=== PATIENT | female | born 1945 | race Caucasian/White ===

== ENCOUNTER → 2017-07-23 | Outpatient (CLI) | payer MEDICARE ==
[2017-07-23 11:03] LABS: ALT 65 U/L (9-52); AST 38 U/L (14-36); Alkaline Phosphatase 70 U/L (38-126); Anion Gap 12 mmol/L; Blood Urea Nitrogen 18 mg/dL (7-17); Calcium 9.8 mg/dL (8.4-10.2); Carbon Dioxide 23 mmol/L (22-30); Chloride 103 mmol/L (98-107); Cholesterol 156 mg/dL (<200); Glucose 226 mg/dL (74-99); HDL Cholesterol 35 mg/dL (40-60); Non-African American GFR(MDRD) >60 (>60 ml/min/1.73 sqM); Potassium 4.4 mmol/L (3.5-5.1); Sodium 138 mmol/L (137-145); Total Bilirubin 0.7 mg/dL (0.2-1.3); Total Protein 7.6 g/dL (6.3-8.2)
[2017-07-23 11:52] LABS: Vitamin B12 230 pg/mL
[2017-07-23 13:32] LABS: Hemoglobin A1C 8.2 % (4.2-6.1)
[2017-07-23 16:36] LABS: Urine Creatinine 161.7 mg/dL
== END | disposition home or self-care (01) ==
LOC: LABWHC1 09:43
PROVIDERS: ATTEND Internal Medicine Endocrinology, Diabetes & Metabolism
DX: E11.65 Type 2 diabetes mellitus with hyperglycemia (principal); E03.8 Other specified hypothyroidism
CPT/HCPCS: 36415; 80053; 80061; 82043; 82570; 82607; 82746; 83036; 84443

== ENCOUNTER → 2017-10-28 | Outpatient (CLI) | payer MEDICARE ==
[2017-10-28 16:10] LABS: Hemoglobin A1C 7.3 % (4.0-6.0)
== END | disposition home or self-care (01) ==
LOC: LABWHC1 10:11
PROVIDERS: ATTEND Internal Medicine
DX: E11.9 Type 2 diabetes mellitus without complications (principal)
CPT/HCPCS: 36415; 83036

== ENCOUNTER → 2018-06-19 | Outpatient (CLI) | payer MEDICARE ==
--- NOTE | 2018-06-19 14:15 | US ---
EXAMINATION TYPE: US gallbladder DATE OF EXAM: 06/19/2018 COMPARISON: NONE CLINICAL HISTORY: R81.9 Cholecystitis. EXAM MEASUREMENTS: Liver Length: 14.5 cm Gallbladder Wall: 0.2 cm CBD: 0.2 cm Right Kidney: 9.4 x 4.0 x 4.2 cm Pancreas: partially obscured by bowel gas Liver: Increased attenuation, decreased visualization of vessels suggestive of fatty infiltrate Gallbladder: cholelithiasis, neck obscured by shadowing from stones, no wall thickening Evidence for sonographic Trammell's sign: no CBD: wnl Right Kidney: Inferior pole obscured by overlying bowel gas IMPRESSION: 1. Cholelithiasis. Acute cholecystitis is not evident based on ultrasound.
== END | disposition home or self-care (01) ==
LOC: RADUSWWP 09:34
PROVIDERS: ATTEND Family Medicine
DX: K80.20 Calculus of gallbladder without cholecystitis without obstruction (principal)
CPT/HCPCS: 76705

== ENCOUNTER → 2018-09-11 | Outpatient (CLI) | payer MEDICARE ==
[2018-09-11 17:33] LABS: LDL Cholesterol,Calculated 136.2 mg/dL (0.0-131.0); VLDL Calculation 14.8 mg/dL (5.00-40.00)
[2018-09-11 18:37] LABS: Hemoglobin A1C 6.6 % (4.0-6.0)
== END | disposition home or self-care (01) ==
LOC: LABWHC1 07:42
PROVIDERS: ATTEND Internal Medicine
DX: E55.9 Vitamin D deficiency, unspecified (principal); E11.9 Type 2 diabetes mellitus without complications
CPT/HCPCS: 36415; 80061; 82043; 82306; 82570; 83036

== ENCOUNTER → 2018-09-24 | Outpatient (CLI) | payer MEDICARE ==
--- NOTE | 2018-09-25 09:19 | MM ---
Reason for exam: screening (asymptomatic). Last mammogram was performed 1 year ago. History: Patient is postmenopausal. Physical Findings: A clinical breast exam by your physician is recommended on an annual basis and results should be correlated with mammographic findings. MG 3D Screening Mammo W/Cad Bilateral CC and MLO view(s) were taken. Prior study comparison: September 23, 2017, bilateral MG 3d screening mammo w/cad. September 20, 2016, bilateral MG 3d screening mammo w/cad. There are scattered fibroglandular densities. There are benign appearing round dystrophic calcifications bilaterally. There is no discrete abnormality. ASSESSMENT: Benign, BI-RAD 2 RECOMMENDATION: Routine screening mammogram of both breasts in 1 year.
== END | disposition home or self-care (01) ==
LOC: RADMAMWWP 06:56
PROVIDERS: ATTEND Family Medicine
DX: Z12.31 Encounter for screening mammogram for malignant neoplasm of breast (principal)
CPT/HCPCS: 77063; 77067

== ENCOUNTER → 2019-03-12 | Outpatient (CLI) | payer MEDICARE ==
[2019-03-12 16:32] LABS: Albumin 4.5 g/dL (3.80-4.90); Albumin/Globulin Ratio 1.5 (1.60-3.17); Anion Gap 9.7 mmol/L (4.00-12.00); Calcium 10.1 mg/dL (8.7-10.3); Carbon Dioxide 25.3 mmol/L (21.6-31.8); LDL Cholesterol,Calculated 137.8 mg/dL (0.0-131.0); Potassium 4.2 mmol/L (3.5-5.5); Total Bilirubin 0.6 mg/dL (0.2-1.2); Total Protein 7.5 g/dL (6.2-8.2); VLDL Calculation 23.2 mg/dL (5.00-40.00)
[2019-03-12 19:00] LABS: Hemoglobin A1C 6.5 % (4.0-6.0)
== END ==
LOC: LABWHC1 08:44
PROVIDERS: ATTEND Internal Medicine Endocrinology, Diabetes & Metabolism
DX: E11.65 Type 2 diabetes mellitus with hyperglycemia (principal); E03.8 Other specified hypothyroidism
CPT/HCPCS: 36415; 80053; 80061; 82043; 82570; 83036; 84443

== ENCOUNTER → 2019-09-25 | Outpatient (CLI) | payer MEDICARE ==
--- NOTE | 2019-09-28 09:31 | MM ---
Reason for exam: screening (asymptomatic). Last mammogram was performed 1 year ago. History: Patient is postmenopausal. Physical Findings: A clinical breast exam by your physician is recommended on an annual basis and results should be correlated with mammographic findings. MG 3D Screening Mammo W/Cad Bilateral CC and MLO view(s) were taken. Prior study comparison: September 24, 2018, bilateral MG 3d screening mammo w/cad. September 23, 2017, bilateral MG 3d screening mammo w/cad. There are scattered fibroglandular densities. Benign appearing bilateral calcifications. No suspicious abnormality. No significant changes when compared with prior studies. ASSESSMENT: Benign, BI-RAD 2 RECOMMENDATION: Routine screening mammogram of both breasts in 1 year.
== END | disposition home or self-care (01) ==
LOC: RADMAMWWP 10:48
PROVIDERS: ATTEND Family Medicine
DX: Z12.31 Encounter for screening mammogram for malignant neoplasm of breast (principal)
CPT/HCPCS: 77063; 77067

== ENCOUNTER → 2019-10-16 | Outpatient (CLI) | payer MEDICARE ==
[2019-10-16 17:12] LABS: African American GFR (CKD) 58.1 (60.0-200.0); Albumin 4.4 g/dL (3.80-4.90); Albumin/Globulin Ratio 1.63 (1.60-3.17); BUN/Creat Ratio 18.18 Ratio (12.00-20.00); Chol/HDL Ratio 6.18; Globulin 2.7 g/dL (1.6-3.3); LDL Cholesterol,Calculated 140.4 mg/dL (0.0-131.0); Non-African American GFR(CKD) 50.1 (60.0-200.0); Potassium 4.3 mmol/L (3.5-5.5); Total Bilirubin 0.7 mg/dL (0.2-1.2); Total Protein 7.1 g/dL (6.2-8.2); VLDL Calculation 35.6 mg/dL (5.00-40.00)
[2019-10-16 21:21] LABS: Hemoglobin A1C 6.2 % (4.0-6.0)
== END | disposition home or self-care (01) ==
LOC: LABWHC1 09:20
PROVIDERS: ATTEND Internal Medicine Endocrinology, Diabetes & Metabolism
DX: E11.9 Type 2 diabetes mellitus without complications (principal)
CPT/HCPCS: 36415; 80053; 80061; 82043; 82570; 83036; 84443

== ENCOUNTER → 2020-05-31 | Outpatient (CLI) | payer MEDICARE ==
[2020-05-31 17:20] LABS: Hemoglobin A1C 8.1 % (4.0-6.0)
[2020-05-31 18:55] LABS: African American GFR (CKD) 57.7 (60.0-200.0); Albumin 4.4 g/dL (3.80-4.90); Albumin/Globulin Ratio 1.52 (1.60-3.17); Anion Gap 11.4 mmol/L (4.00-12.00); BUN/Creat Ratio 27.27 Ratio (12.00-20.00); Calcium 9.7 mg/dL (8.7-10.3); Carbon Dioxide 21.6 mmol/L (21.6-31.8); Chol/HDL Ratio 4.67; Globulin 2.9 g/dL (1.6-3.3); Non-African American GFR(CKD) 49.8 (60.0-200.0); Potassium 4.4 mmol/L (3.5-5.5); Total Bilirubin 0.4 mg/dL (0.3-1.2); Total Protein 7.3 g/dL (6.2-8.2)
[2020-06-01 01:51] LABS: Urine Creatinine 80.6 mg/dL
== END | disposition home or self-care (01) ==
LOC: LABWHC1 08:54
PROVIDERS: ATTEND Internal Medicine Endocrinology, Diabetes & Metabolism
DX: E11.9 Type 2 diabetes mellitus without complications (principal)
CPT/HCPCS: 36415; 80053; 80061; 82043; 82570; 83036; 84443

== ENCOUNTER 2020-10-24 08:02 | Inpatient (IN) | payer MEDICARE ==
--- NOTE | 2020-10-24 08:28 | ED ---
General Adult HPI - General Chief complaint: Chest Pain Stated complaint: Chest Pain, Lightheaded Time Seen by Provider: 10/24/20 08:09 Source: patient, RN notes reviewed, old records reviewed Mode of arrival: wheelchair Limitations: no limitations - History of Present Illness Initial comments: 75-year-old female presenting for evaluation of chest tightness. Patient states that at 3 AM this morning which was 5 hours prior to arrival the patient devel oped left arm pain and numbness and central upper chest tightness. She denies associated nausea vomiting or diaphoresis. She states she did have a vomiting illness approximate 2 days ago which has resolved. There is no associated chest pain with this episode of vomiting. She denies a known history of coronary artery disease but states that she had a stress test in the fall and it was recommended that she undergo heart catheterization but she had not completed this is secondary to coronavirus. He denies fever. Denies dyspnea. Patient had taken aspirin prior to arrival. - Related Data Allergies Allergy/AdvReac Type Severity Reaction Status Date / Time epinephrine Allergy Rapid Verified 10/24/20 08:14 Heart Rate Review of Systems ROS Statement: Those systems with pertinent positive or pertinent negative responses have been documented in the HPI. ROS Other: All systems not noted in ROS Statement are negative. Past Medical History Past Medical History: Diabetes Mellitus, Hyperlipidemia, Hypertension, Thyroid Disorder History of Any Multi-Drug Resistant Organisms: None Reported Past Surgical History: Section, Orthopedic Surgery Additional Past Surgical History / Comment(s): knee Past Psychological History: No Psychological Hx Reported Smoking Status: Never smoker Past Alcohol Use History: None Reported Past Drug Use History: None Reported General Exam Limitations: no limitations General appearance: alert, in no apparent distress Head exam: Present: atraumatic, normocephalic Eye exam: Present: normal appearance, PERRL ENT exam: Present: normal exam Neck exam: Present: normal inspection. Absent: tenderness, meningismus Respiratory exam: Present: normal lung sounds bilaterally. Absent: respiratory distress, wheezes Cardiovascular Exam: Present: regular rate, normal rhythm GI/Abdominal exam: Present: soft. Absent: distended, tenderness, guarding Extremities exam: Present: normal inspection, normal capillary refill. Absent: pedal edema, calf tenderness Neurological exam: Present: alert, oriented X3, CN II-XII intact. Absent: motor sensory deficit Psychiatric exam: Present: normal affect, normal mood Skin exam: Present: warm, dry, intact. Absent: cyanosis, diaphoretic Course Vital Signs 10/24/20 10/24/20 08:11 08:30 Temperature 98 F Pulse Rate 68 68 Respiratory 18 18 Rate Blood Pressure 149/73 158/77 O2 Sat by Pulse 100 98 Oximetry EKG Findings - EKG Comments: EKG Findings:: EKG: Sinus rhythm, low voltage, inferior infarct rate of 65, AZ interval 170, QRS duration 88, QTC 418, no ST segment elevation. Medical Decision Making - Medical Decision Making 75-year-old female residing for evaluation of chest pain, radiating to left arm. EKG negative for ST segment elevation. Chest x-rays negative for acute cardiopulmonary disease. Patient has normal CBC, she has mildly elevated blood glucose, otherwise normal kidney function, normal electrolytes. She has a negative initial troponin. Given this history of a positive stress test and need for heart catheterization will keep this patient observation for serial cardiac enzymes, telemetry, cardiology consultation. Case has been discussed with Dr. Gomez who will admit. - Lab Data Result diagrams: 10/24/20 08:29 10/24/20 08:29 Lab Results 10/24/20 10/24/20 10/24/20 Range/Units 08:29 08:29 08:29 WBC 6.5 (3.8-10.6) k/uL RBC 4.19 (3.80-5.40) m/uL Hgb 12.8 (11.4-16.0) gm/dL Hct 36.9 (34.0-46.0) % MCV 88.0 (80.0-100.0) fL MCH 30.6 (25.0-35.0) pg MCHC 34.7 (31.0-37.0) g/dL RDW 13.6 (11.5-15.5) % Plt Count 212 (150-450) k/uL MPV 8.5 Neutrophils % 63 % Lymphocytes % 30 % Monocytes % 3 % Eosinophils % 3 % Basophils % 1 % Neutrophils # 4.1 (1.3-7.7) k/uL Lymphocytes # 1.9 (1.0-4.8) k/uL Monocytes # 0.2 (0-1.0) k/uL Eosinophils # 0.2 (0-0.7) k/uL Basophils # 0.0 (0-0.2) k/uL Sodium 135 L (137-145) mmol/L Potassium 5.5 H (3.5-5.1) mmol/L Chloride 104 (98-107) mmol/L Carbon Dioxide 23 (22-30) mmol/L Anion Gap 8 mmol/L BUN 20 H (7-17) mg/dL Creatinine 0.98 (0.52-1.04) mg/dL Est GFR (CKD-EPI)AfAm 66 (>60 ml/min/1.73 sqM) Est GFR (CKD-EPI)NonAf 57 (>60 ml/min/1.73 sqM) Glucose 196 H (74-99) mg/dL Calcium 10.1 (8.4-10.2) mg/dL Magnesium 1.7 (1.6-2.3) mg/dL Total Bilirubin 0.8 (0.2-1.3) mg/dL AST 39 H (14-36) U/L ALT 23 (4-34) U/L Alkaline Phosphatase 57 (38-126) U/L Troponin I <0.012 (0.000-0.034) ng/mL Total Protein 8.0 (6.3-8.2) g/dL Albumin 4.3 (3.5-5.0) g/dL Disposition Clinical Impression: Chest pain Disposition: [facility] Instructions (If sedation given, give patient instructions): Chest Pain (ED) Is patient prescribed a controlled substance at d/c from ED?: No Referrals: Jarett Gomez Jr, [Primary Care Provider] - 1-2 days Decision to Admit Reason: Admit from EC Decision Date: 10/24/20 Decision Time: 09:57
[2020-10-24 08:46] LABS: Basophils % (A) 1 %; Eosinophils # (A) 0.2 k/uL (0-0.7); Eosinophils % (A) 3 %; HCT 36.9 % (34.0-46.0); HGB 12.8 gm/dL (11.4-16.0); Lymphocytes # (A) 1.9 k/uL (1.0-4.8); Lymphocytes % (A) 30 %; MCH 30.6 pg (25.0-35.0); MCHC 34.7 g/dL (31.0-37.0); Mean Platelet Volume 8.5; Monocytes # (A) 0.2 k/uL (0-1.0); Monocytes % (A) 3 %; Neutrophils # (A) 4.1 k/uL (1.3-7.7); Neutrophils % (A) 63 %; Platelet Count 212 k/uL (150-450); RBC 4.19 m/uL (3.80-5.40); RDW 13.6 % (11.5-15.5); WBC 6.5 k/uL (3.8-10.6)
[2020-10-24 08:57] LABS: Albumin 4.3 g/dL (3.5-5.0); Calcium 10.1 mg/dL (8.4-10.2); Magnesium 1.7 mg/dL (1.6-2.3); Total Bilirubin 0.8 mg/dL (0.2-1.3)
--- NOTE | 2020-10-24 09:00 | XR ---
EXAMINATION TYPE: XR chest 2V DATE OF EXAM: 10/24/2020 COMPARISON: None HISTORY: 75-year-old female with chest pain TECHNIQUE: PA and lateral views FINDINGS: The cardiomediastinal silhouette, aorta, and pulmonary vasculature are within normal limits. Lungs an d pleural spaces are clear. IMPRESSION: No acute cardiopulmonary process.
[2020-10-24 09:22] LABS: Potassium 5.5 mmol/L (3.5-5.1)
[2020-10-24 09:30] LABS: Prothrombin Time 10.3 sec (9.0-12.0)
[2020-10-24] MEDS ORDERED: NALOXONE 0.4 MG/ML 1 ML VIAL IV PRN (09:58)
[2020-10-24] MEDS ORDERED: HYDROcodone/APAP 5-325MG 1 EACH TAB PO PRN (09:58)
[2020-10-24 09:59] LABS: Partial Thromboplastin Time 18.9 sec (22.0-30.0)
[2020-10-24] MEDS ORDERED: ASPIRIN 325 MG TAB PO STA (09:59)
[2020-10-24] MEDS ORDERED: ALPRAZolam 0.25 MG TAB PO PRN (14:25)
[2020-10-24] MEDS ORDERED: SODIUM CHLORIDE 0.9% 1,000 ML in EMPTY BAG 1 BAG IV ONE (14:25)
[2020-10-24] MEDS ORDERED: NITROGLYCERIN SL TABS 0.4 MG TAB SUBLINGUAL PRN (14:25)
[2020-10-24] MEDS ORDERED: ALPRAZolam 0.5 MG TAB PO PRN (14:25)
--- NOTE | 2020-10-24 14:27 | P.CRDCN ---
History of Present Illness Consult reason: chest pain History of present illness: HISTORY OF PRESENTING ILLNESS This is a pleasant 75-year-old female past medical history significant for hypertension, dyslipidemia, diabetes mellitus and chronic neck pain. She follows in the office with Dr. Duran. We have been asked to see in consultation for chest pain. She states she woke up around 0300 with a numb tingling sensation in her left hand with pain in the left shoulder. The pain is described as an achy sensation. She does have cervical disc issues and has chronic shoulder pain, however this time there was some radiation into the anterior left chest and this is different from her typical neck pains. She checked her blood pressure and it was elevated at 160 systolic. The discomfort in her arm and shoulder persisted. She also felt some mild light headedness. No shortness of breath, nausea, vomiting, diaphoresis or palpitations. Currently the pain has subsided in her arm, shoulder and chest. In August of last year she underwent a Lexiscan stress test that revealed evidence of reversibility inferior and anterior wall. She was advised cardiac catheterization at that time, however opted for medical therapy given the current pandemic. She has been essentially asymptomatic since that time except for some shoulder pain when she takes her daily walk. However the pain seems to improve as she continues to walk and by the time she gets done with 3 miles the pain is completely subsided. Most recent echocardiogram obtained 08/2019 revealed preserved LV systolic function with EF 55% with a trivial generalized pericardial effusion. DIAGNOSTICS EKG reveals sinus mechanism with heart rate 65 with non-specific abnormalities inferiorly. Chest xray negative for an acute cardiopulmonary process. Laboratory reviewed, CBC unremarkable, sodium 135, potassium 5.5, creatinine 0.98, magnesium 1.7, cardiac enzymes negative x2. Current cardiac medications include aspirin 81 mg daily, atorvastatin 40 mg Sat and Sat, valsartan/hctz 160/12.5 mg daily and atenolol 25 mg daily. REVIEW OF SYSTEMS At the time of my exam: CONSTITUTIONAL: Denies fever or chills. CARDIOVASCULAR: Denies chest pain, shortness of breath, orthopnea, PND or palpitations. RESPIRATORY: Denies cough. GASTROINTESTINAL: Denies abdominal pain, diarrhea, constipation, nausea or vomiting. MUSCULOSKELETAL: Denies myalgias. NEUROLOGIC: Denies numbness, tingling, headacbe or weakness. ENDOCRINE: Denies fatigue, weight change, polydipsia or polyurina. GENITOURINARY: Denies burning, hematuria or urgency with micturation. HEMATOLOGIC: Denies history of anemia or bleeding. PHYSICAL EXAMINATION Blood pressure 147/75 heart rate 56 afebrile and maintaining oxygen saturation on room air. CONSTITUTIONAL: No apparent distress. HEENT: Head is normocephalic. Pupils are equal, round. Sclerae anicteric. Mucous membranes of the mouth are moist. No JVD. No carotid bruit. CHEST EXAMINATION: Lungs are clear to auscultation. No chest wall tenderness is noted on palpation or with deep breathing. HEART EXAMINATION: Regular rate and rhythm. S1, S2 heard. No murmurs, gallops or rub. ABDOMEN: Soft, nontender. Positive bowel sounds. EXTREMITIES: 2+ peripheral pulses, no lower extremity edema and no calf tenderness. NEUROLOGIC EXAMINATION: Patient is awake, alert and oriented x3. ASSESSMENT Chest pain Abnormal stress test Hyperkalemia Diabetes mellitus Hypertension Dyslipidemia PLAN An acute coronary event has been ruled out. Given her recent abnormal stress test, recommend proceeding with cardiac catheterization to assess for underlying coronary artery disease. I have discussed the risks, benefits and alternative therapies for the above-mentioned procedure and for both sedation/analgesia as well as necessary blood product administration, if indicated, as they pertain to this patient. The patient has indicated understanding and acceptance of the risks and procedures discussed. Questions have been answered appropriately and she is agreeable to move forward with the above stated procedure. Hold valsartan secondary to hyperkalemia. Repeat BMP in the morning. Thank you kindly for this consultation. Nurse Practitioner note has been reviewed, I agree with a documented findings and plan of care. Patient was seen and examined. Past Medical History Past Medical History: Diabetes Mellitus, Hyperlipidemia, Hypertension, Thyroid Disorder History of Any Multi-Drug Resistant Organisms: None Reported Past Surgical History: Section, Orthopedic Surgery Additional Past Surgical History / Comment(s): knee Past Psychological History: No Psychological Hx Reported Smoking Status: Never smoker Past Alcohol Use History: None Reported Past Drug Use History: None Reported Medications and Allergies Home Medications Medication Instructions Recorded Confirmed Type Aspirin EC [Ecotrin Low Dose] 81 mg PO HS 10/24/20 10/24/20 History Atorvastatin [Lipitor] 40 mg PO WESA@2100 10/24/20 10/24/20 History Levothyroxine Sodium [Synthroid] 112 mcg PO AC-BRKFST 10/24/20 10/24/20 History Valsartan/Hydrochlorothiazide 1 tab PO AC-BRKFST 10/24/20 10/24/20 History [Valsartan-Hctz 160-12.5 mg Tab] atenoloL [Atenolol] 25 mg PO AC-BRKFST 10/24/20 10/24/20 History sitaGLIPtin [Januvia] 100 mg PO PC-BRKFST 10/24/20 10/24/20 History Allergies Allergy/AdvReac Type Severity Reaction Status Date / Time epinephrine AdvReac Rapid Verified 10/24/20 10:00 Heart Rate Physical Exam Vitals: Vital Signs Temp Pulse Resp BP Pulse Ox 10/24/20 10:00 56 L 18 147/75 100 10/24/20 09:30 61 20 98 10/24/20 09:00 58 L 22 167/88 97 10/24/20 08:30 68 18 158/77 98 10/24/20 08:11 98 F 68 18 149/73 100 Intake and Output 10/23/20 10/24/20 10/24/20 22:59 06:59 14:59 Other: Weight 72.575 kg Results 10/24/20 08:29 10/24/20 08:29 Cardiac Enzymes 10/24/20 10/24/20 10/24/20 Range/Units 08:29 08:29 11:48 AST 39 H (14-36) U/L Troponin I <0.012 <0.012 (0.000-0.034) ng/mL Coagulation 10/24/20 Range/Units 08:45 PT 10.3 (9.0-12.0) sec APTT 18.9 L (22.0-30.0) sec CBC 10/24/20 Range/Units 08:29 WBC 6.5 (3.8-10.6) k/uL RBC 4.19 (3.80-5.40) m/uL Hgb 12.8 (11.4-16.0) gm/dL Hct 36.9 (34.0-46.0) % Plt Count 212 (150-450) k/uL Comprehensive Metabolic Panel 10/24/20 Range/Units 08:29 Sodium 135 L (137-145) mmol/L Potassium 5.5 H (3.5-5.1) mmol/L Chloride 104 (98-107) mmol/L Carbon Dioxide 23 (22-30) mmol/L BUN 20 H (7-17) mg/dL Creatinine 0.98 (0.52-1.04) mg/dL Glucose 196 H (74-99) mg/dL Calcium 10.1 (8.4-10.2) mg/dL AST 39 H (14-36) U/L ALT 23 (4-34) U/L Alkaline Phosphatase 57 (38-126) U/L Total Protein 8.0 (6.3-8.2) g/dL Albumin 4.3 (3.5-5.0) g/dL Current Medications Generic Name Dose Route Start Last Admin Trade Name Freq PRN Reason Stop Dose Admin Hydrocodone Bitart/Acetaminophen 1 each 10/24/20 09:58 Hydrocodone/Apap 5-325mg 1 Each Tab PO Q4HR PRN Moderate Pain Aspirin 325 mg 10/25/20 09:00 10/24/20 10:30 Aspirin 325 Mg Tab PO 325 mg DAILY OBDULIO Administration Naloxone HCl 0.2 mg 10/24/20 09:58 Naloxone 0.4 Mg/Ml 1 Ml Vial IV Q2M PRN Opioid Reversal Intake and Output 10/23/20 10/24/20 10/24/20 22:59 06:59 14:59 Other: Weight 72.575 kg Patient Weight 10/25/20 06:59 Weight 72.575 kg 10/24/20 08:29 10/24/20 08:29
[2020-10-24] MEDS: PANTOPRAZOLE 40 MG/10 ML VIAL IVP SCH (14:39)
[2020-10-24 17:17] LABS: Glucose,Whole Blood 128 mg/dL (75-99)
[2020-10-24] MEDS: INSULIN ASPART (NovoLOG) 100 UNIT/ML VIAL SQ SCH ×2 (17:19→21:00)
--- NOTE | 2020-10-24 17:35 | P.HPIM ---
History of Present Illness H&P Date: 10/24/20 Chief Complaint: Left arm pain, recent positive stress test This is 75-year-old female with a abnormal stress test back in August, reports sulphate tester recommended cardiac catheterization but patient was afraid to come into hospital for fear of contacting Covid. Developed left arm pain earlier this morning, accompanied by numbness in left upper chest pressure, proceeded to the ER. Denies nausea vomiting or diarrhea. Denies diaphoresis. Denies fever or chills. Denies lightheadedness, dizziness or focal deficits. EKG reported sinus rhythm, inferior infarct age undetermined, troponins negative 3 ,chest x- ray reported no acute cardiopulmonary process. Afebrile, maintaining O2 sats in the high 90s on room air .hematology unremarkable, INR 1, sodium 135, potassium 5.5, BUN 20, creatinine 0.98, glucose 196, magnesium 1.7. Elevated AST of 39. Evaluated by cardiology and patient is scheduled for cardiac catheterization in the a.m. Review of Systems ROS Statement: Those systems with pertinent positive or pertinent negative responses have been documented in the HPI. ROS Other: All systems not noted in ROS Statement are negative. Past Medical History Past Medical History: Diabetes Mellitus, Hyperlipidemia, Hypertension, Thyroid Disorder History of Any Multi-Drug Resistant Organisms: None Reported Past Surgical History: Section, Orthopedic Surgery Additional Past Surgical History / Comment(s): knee Past Psychological History: No Psychological Hx Reported Smoking Status: Never smoker Past Alcohol Use History: None Reported Past Drug Use History: None Reported Medications and Allergies Home Medications Medication Instructions Recorded Confirmed Type Aspirin EC [Ecotrin Low Dose] 81 mg PO HS 10/24/20 10/24/20 History Atorvastatin [Lipitor] 40 mg PO WESA@2100 10/24/20 10/24/20 History Levothyroxine Sodium [Synthroid] 112 mcg PO AC-BRKFST 10/24/20 10/24/20 History Valsartan/Hydrochlorothiazide 1 tab PO AC-BRKFST 10/24/20 10/24/20 History [Valsartan-Hctz 160-12.5 mg Tab] atenoloL [Atenolol] 25 mg PO AC-BRKFST 10/24/20 10/24/20 History sitaGLIPtin [Januvia] 100 mg PO -BRKFST 10/24/20 10/24/20 History Allergies Allergy/AdvReac Type Severity Reaction Status Date / Time epinephrine AdvReac Rapid Verified 10/24/20 10:00 Heart Rate Physical Exam Vitals: Vital Signs Temp Pulse Resp BP Pulse Ox 10/24/20 10:00 56 L 18 147/75 100 10/24/20 09:30 61 20 98 10/24/20 09:00 58 L 22 167/88 97 10/24/20 08:30 68 18 158/77 98 10/24/20 08:11 98 F 68 18 149/73 100 Intake and Output 10/23/20 10/24/20 10/24/20 22:59 06:59 14:59 Other: Weight 72.575 kg PHYSICAL EXAM: VITAL SIGNS: [As above] GENERAL: Pleasant, Sitting up in stretcher, no acute distress with at bedside. HEENT: Conjunctivae normal. eyes normal. NECK: No JVD. No thyroid enlargement. No LNs CARDIOVASCULAR: S1, S2 regular.. No murmur RESPIRATION: Breath sounds diminished in the bases. No rhonchi or crackles. No chest wall tenderness. ABDOMEN: Soft, nontender . No guarding. no masses palpable. No ascites, No hepatosplenomegaly.Bowel sounds heard. LEGS: No edema. no swelling PSYCHIATRY: Alert and oriented X3, mood and affect normal. NERVOUS SYSTEM: Cranial N 2-12 grossly normal. Moves all 4 limbs. Diffuse weakness No focal deficits. Strength and sensation grossly intact.. Skin: Warm and dry, no rash Lymphatic system. No LN neck axilla. Results CBC & Chem 7: 10/24/20 08:29 10/24/20 08:29 Labs: Abnormal Lab Results - Last 24 Hours (Table) 10/24/20 10/24/20 Range/Units 08:29 08:45 APTT 18.9 L (22.0-30.0) sec Sodium 135 L (137-145) mmol/L Potassium 5.5 H (3.5-5.1) mmol/L BUN 20 H (7-17) mg/dL Glucose 196 H (74-99) mg/dL AST 39 H (14-36) U/L Assessment and Plan Assessment: Acute chest pain, recent abnormal stress test in August 2020. Hyperkalemia, holding valsartan Diabetes mellitus Hypertension Hyperlipidemia Hypothyroidism Plan: Continue on current medication regime ,monitoring and symptomatic treatment. As mentioned above evaluated by cardiology and patient is scheduled for cardiac catheterization in the a.m. GI and DVT prophylaxis in place with h eparin drip and Protonix. The impression and plan of care has been dictated as directed. : I performed a history and examination of this patient, discussed the same with the dictator. I agree with the dictator's note ,documented as a scribe. Any additional findings or plans will be noted.
[2020-10-24 21:02] LABS: Glucose,Whole Blood 170 mg/dL (75-99)
[2020-10-25 05:59] LABS: Glucose,Whole Blood 164 mg/dL (75-99)
[2020-10-25] MEDS ORDERED: ASPIRIN 325 MG TAB PO ONE (06:00)
[2020-10-25] MEDS: atenoloL 25 MG TAB PO SCH (06:07)
[2020-10-25] MEDS: LEVOTHYROXINE 112 MCG TAB PO SCH (06:07)
--- NOTE | 2020-10-25 06:25 | P.PN ---
Subjective Progress Note Date: 10/25/20 Principal diagnosis: Chest pain This is a very pleasant 75-year-old female patient who sees Dr. Duran in the office on regular basis with a past medical history significant for diabetes and hypertension and dyslipidemia who was admitted to the hospital with a chest discomfort. The patient is known to Dr. Duran from before and she underwent a stress test in the office and that came in to be abnormal but initially medical treatment only was considered but subsequently the patient started having increasing chest discomfort and for that reason she was admitted to the hospital and she is going to undergo a heart catheterization today. She was seen this morning. She is asymptomatic at this point in time of chest pain or chest discomfort. Unfortunately her potassium is elevated from yesterday and will repeat the potassium today just to make sure that is not an error. Otherwise she is hemodynamically stable. The plan is to proceed with a heart catheterization later on today. Objective - Vital Signs Vital signs: Vital Signs Temp 97.6 F 10/25/20 05:52 Pulse 55 L 10/25/20 05:52 Resp 18 10/25/20 05:52 BP 137/62 10/25/20 05:52 Pulse Ox 98 10/25/20 05:52 Intake & Output 10/24/20 10/24/20 10/25/20 06:59 18:59 06:59 Weight 72.575 kg Other: Voiding Method Toilet # Voids 1 2 - Constitutional General appearance: Present: no acute distress - Respiratory Respiratory: bilateral: CTA - Cardiovascular Rhythm: regular Heart sounds: normal: S1, S2 - Labs CBC & Chem 7: 10/24/20 08:29 10/24/20 08:29 Labs: Abnormal Lab Results - Last 24 Hours (Table) 10/24/20 10/24/20 10/24/20 Range/Units 08:29 08:45 17:16 APTT 18.9 L (22.0-30.0) sec Sodium 135 L (137-145) mmol/L Potassium 5.5 H (3.5-5.1) mmol/L BUN 20 H (7-17) mg/dL Glucose 196 H (74-99) mg/dL POC Glucose (mg/dL) 128 H (75-99) mg/dL AST 39 H (14-36) U/L 01/11/21 01/12/21 Range/Units 20:51 05:55 APTT (22.0-30.0) sec Sodium (137-145) mmol/L Potassium (3.5-5.1) mmol/L BUN (7-17) mg/dL Glucose (74-99) mg/dL POC Glucose (mg/dL) 170 H 164 H (75-99) mg/dL AST (14-36) U/L Assessment and Plan Assessment: Assessment #1 Chest discomfort along with abnormal stress test #2 multiple risk factors for CAD including diabetes and hypertension and dyslipidemia Plan #1 proceed with coronary angiogram #2 repeat the potassium #3 follow-up with the patient
[2020-10-25] MEDS: INSULIN ASPART (NovoLOG) 100 UNIT/ML VIAL SQ SCH ×4 (06:41→21:02)
[2020-10-25] MEDS ORDERED: HEPARIN SODIUM,PORCINE 10,000 UNIT in SODIUM CHLORIDE 0.9% 1,000 ML IRRIGATION PRN (07:00)
[2020-10-25] MEDS ORDERED: HEPARIN SODIUM,PORCINE 2,500 UNIT in SODIUM CHLORIDE 0.9% 250 ML IRRIGATION PRN (07:00)
[2020-10-25] MEDS ORDERED: IV FLUID CONTINUATION 1,000 ML IV ONE (07:47)
[2020-10-25] MEDS: MIDAZOLAM 2 MG/2 ML VIAL IV ONE ×2 (07:57→08:03)
[2020-10-25] MEDS ORDERED: LIDOCAINE 1% INJ 10MG/ML (20 ML MDV) ONE (07:57)
[2020-10-25] MEDS ORDERED: fentaNYL (PF) 50 MCG/ML 2 ML AMP IV ONE (07:58)
[2020-10-25] MEDS ORDERED: LIDOCAINE 1% INJ 10MG/ML (20 ML MDV) SQ ONE (07:59)
[2020-10-25] MEDS ORDERED: NITROGLYCERIN 1000MCG/10ML SYRINGE INTRACORON ONE (08:21)
[2020-10-25] MEDS ORDERED: IOPAMIDOL-370 150ML BTL INJ ONE (08:28)
[2020-10-25 08:38] LABS: Basophils % (A) 0 %; Eosinophils # (A) 0.2 k/uL (0-0.7); Eosinophils % (A) 2 %; HCT 35.6 % (34.0-46.0); Lymphocytes # (A) 2.2 k/uL (1.0-4.8); Lymphocytes % (A) 32 %; MCH 29.5 pg (25.0-35.0); MCHC 33.7 g/dL (31.0-37.0); MCV 87.5 fL (80.0-100.0); Mean Platelet Volume 8.3; Monocytes # (A) 0.3 k/uL (0-1.0); Monocytes % (A) 4 %; Neutrophils % (A) 60 %; Platelet Count 221 k/uL (150-450); RBC 4.07 m/uL (3.80-5.40); RDW 13.8 % (11.5-15.5); WBC 6.8 k/uL (3.8-10.6)
[2020-10-25 08:51] LABS: Calcium 9.8 mg/dL (8.4-10.2); Potassium 4.1 mmol/L (3.5-5.1)
[2020-10-25] MEDS ORDERED: ASPIRIN 325 MG TAB PO SCH (09:00)
--- NOTE | 2020-10-25 09:18 | CC ---
CARDIAC CATHETERIZATION REPORT DATE OF SERVICE: 10/25/2020. PROCEDURE: Left heart catheterization and coronary angiography. PERFORMED BY: Dr. Alfredo Duran. Moderate conscious sedation time was 29 minutes. The patient was administered Versed. Oxygen saturation, hemodynamics and EKG were monitored closely. CLINICAL INFORMATION: Mrs. Meena Meza is a 75-year-old lady with a history of type 2 diabetes, hypertension, hyperlipidemia, who had a positive stress test in August with inferior wall reversible defect and anterior wall partially reversible defect with an ejection fraction of about 50%. She was advised cardiac cath, but chose not to have it done and came into the hospital with chest pain suggestive of angina. Troponins were negative. She was advised cardiac cath after due discussion with the patient and yesterday regarding the risks, benefits, and options. PROCEDURE NOTE: Under local anesthesia and strict aseptic precautions, a 6-Latvian introducer was placed in the right femoral artery. Using a JL4 catheter I performed selective coronary angiography of the left system switched over to a 3.5 to get a better visualization. Then I used a Malia catheter for the right coronary, which came off from a somewhat unusual location. I gave intracoronary nitroglycerin into the RCA which had a spasm in the ostium. I then checked LV pressures with the right catheter but LV gram was not performed. The sheath was taken out and Angio-Seal device used to secure hemostasis and she was sent to the room in stable condition. CARDIAC CATHETERIZATION FINDINGS: The left ventricular end-diastolic pressure was 10 mmHg without any gradient across the aortic valve. CORONARY ANGIOGRAPHY FINDINGS: RIGHT CORONARY ARTERY: This is a nondominant vessel, has a fair caliber and distribution and there is an ostial 70% to 80% lesion which I thought was spasm, but I gave nitroglycerin and multiple injections after that also revealed that the lesion was quite tight with damping. There is therefore an ostial 70% lesion of the nondominant RCA that is fair in caliber and graftable. LEFT MAIN CORONARY ARTERY: A very short vessel that immediately bifurcates, has significant damping and ostial lesion of at least 70%. It immediately bifurcates into LAD and circumflex. LEFT ANTERIOR DESCENDING CORONARY ARTERY: This vessel has about a 30% lesion proximally, midportion is an eccentric 70% lesion. It runs all the way to the apex supplying a sizable amount of myocardium. In addition to the left main, there is a mid LAD lesion of 70%. LEFT POSTERIOR CIRCUMFLEX CORONARY ARTERY: This is a very dominant vessel, has an ostial lesion of 80%. Gives off a large obtuse marginal that runs laterally and distal PDA branch is of good caliber and distribution. Circumflex is therefore dominant, has an ostial lesion of 70% to 80% as it comes off from the left main. Left main itself also has an ostial lesion of more than 70% with significant damping. LEFT VENTRICULOGRAM: Left ventriculogram was not performed. FINAL IMPRESSION: This patient has normal filling pressures. No gradient across aortic valve. The left dominant system with the left main more than 70%, left anterior descending artery is mid 70%, and ostial circumflex 70% to 80% with a nondominant RCA ostium also diseased up to 70%. RECOMMENDATION: I am recommending aortocoronary bypass surgery with MARTINEZ to the LAD, SVG to graft to the circumflex system, the PDA and obtuse marginal and also possibly a graft to the distal RCA. I discussed my thoughts in detail with the patient, spoke to her by phone and also her son and left a message for Dr. Mills who will be seeing the patient today with regard to cardiac surgery. In the meantime, patient's losartan will be held because of elevated potassium. We will recheck BMP today and continue other medications. MMODL / IJN: [id number] / MTDD
[2020-10-25] MEDS ORDERED: MD COMMUNICATION TO PHARMACY 1 EACH MISC PO ONE (09:22)
[2020-10-25 10:03] LABS: Magnesium 1.7 mg/dL (1.6-2.3)
--- NOTE | 2020-10-25 10:14 | P.GSCN ---
<Gabby Armenta - Last Filed: 10/25/20 09:53> History of Present Illness Consult date: 10/25/20 Reason for Consult: Unstable angina, coronary artery disease with left main disease Requesting physician: Aureliano Duran History of present illness: This is a 75-year-old very active female who follows in an outpatient basis with Dr. Gomez for primary care and Dr. RADHA Duran for cardiology. 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 This lady states that she is very active and walks approximately 3 miles a day. She had a stress test in August 2020 which was abnormal demonstrating evidence of inferior wall reversible defect and hypokinesia with fixed anterior wall defect. She was recommended at that time to undergo heart catheterization for further evaluation for coronary artery disease, however she deferred timing of heart catheterization due to Covid virus. She presented to [facility] emergency room yesterday with complaints of left arm pain and numbness, occasional dizziness, and profuse vomiting 24 hours prior to admission. She denied any chest pain or shortness of breath or any other symptomatology. In the emergency room a chest x-ray was completed demonstrating no acute cardiopulmonary process. EKG demonstrated normal sinus rhythm without ST elevation. White blood cell count 6.5, hemoglobin 12.8, creatinine 0.98, troponins negative 3. Due to her symptoms and history of abnormal stress test she was kept in observation and recommended to undergo heart catheterization which was completed today and which demonstrated short tight left main with 70% stenosis, mid LAD stenosis 70%, ostial circumflex stenosis 80-85%, and right coronary artery stenosis 80%. Due to these findings consultation was placed to Dr. Mills from cardiothoracic surgery for surgical revascularization recommendations. Review of Systems Review of systems was completed and was negative except as noted - Cardiovascular Cardiovascular Comment(s): Left arm pain/numbness Reports as per HPI - Gastrointestinal Gastrointestinal Comment(s): 24 hours prior to admission admits to episode of profuse vomiting Reports vomiting - Neurological Neurologic Comment(s): Occasional dizziness 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 History of Any Multi-Drug Resistant Organisms: None Reported Past Surgical History: Section, Orthopedic Surgery Additional Past Surgical History / Comment(s): Left knee replacement Past Psychological History: No Psychological Hx Reported Smoking Status: Never smoker Past Alcohol Use History: None Reported Past Drug Use History: None Reported - Past Family History Father Family Medical History: Myocardial Infarction ([place]) Additional Family Medical History / Comment(s): from myocardial in farction at 70 years old Mother Additional Family Medical History / Comment(s): from "enlarged heart" at 87 years old Brother(s) Family Medical History: Coronary Artery Disease (CAD) Additional Family Medical History / Comment(s): Multiple stents placed, starting at less than 55 years of age Son(s) Family Medical History: CVA/TIA Additional Family Medical History / Comment(s): from stroke at 41 years old Medications and Allergies Home Medications Medication Instructions Recorded Confirmed Type Aspirin EC [Ecotrin Low Dose] 81 mg PO HS 10/24/20 10/24/20 History Atorvastatin [Lipitor] 40 mg PO [id number]@2100 10/24/20 10/24/20 History Levothyroxine Sodium [Synthroid] 112 mcg PO -KFST 10/24/20 10/24/20 History Valsartan/Hydrochlorothiazide 1 tab PO -KFST 10/24/20 10/24/20 History [Valsartan-Hctz 160-12.5 mg Tab] atenoloL [Atenolol] 25 mg PO -BRKFST 10/24/20 10/24/20 History sitaGLIPtin [Januvia] 100 mg PO -KFST 10/24/20 10/24/20 History Allergies Allergy/AdvReac Type Severity Reaction Status Date / Time epinephrine AdvReac Rapid Verified 10/28/20 06:14 Heart Rate Surgical - Exam Vital Signs Temp Pulse Resp BP Pulse Ox 98 F 68 18 149/73 100 10/24/20 08:11 10/24/20 08:11 10/24/20 08:11 10/24/20 08:11 10/24/20 08:11 - General well developed, well nourished, no distress, no pain, obese - Eyes PERRL, normal ocular movement - ENT no hearing loss - Neck no masses, no bruits, trachea midline - Respiratory Lungs sounds clear bilaterally. Respirations even, nonlabored. Currently on room air with oxygen saturation 97%. No chest wall deformities. No clubbing or cyanosis present. - Cardiovascular S1, S2 present. Regular rate and rhythm, sinus rhythm on telemetry. Palpable peripheral pulses bilaterally. No edema present. No calf pain or tenderness noted. - Abdomen Abdomen: soft, non tender, bowel sounds - Genitourinary Deferred - Rectum Deferred - Integumentary Right femoral heart catheterization site soft, no redness or drainage no rash, no growths - Neurologic normal coordination, normal sensation - Musculoskeletal normal posture - Psychiatric oriented to time, oriented to person, oriented to place, speech is normal, memory intact Results - Labs 10/25/20 08:05 10/25/20 08:05 Abnormal Lab Results - Last 24 Hours (Table) 10/24/20 10/24/20 10/24/20 Range/Units 08:45 17:16 20:51 APTT 18.9 L (22.0-30.0) sec BUN (7-17) mg/dL Creatinine (0.52-1.04) mg/dL Glucose (74-99) mg/dL POC Glucose (mg/dL) 128 H 170 H (75-99) mg/dL 10/25/20 10/25/20 Range/Units 05:55 08:05 APTT (22.0-30.0) sec BUN 19 H (7-17) mg/dL Creatinine 1.07 H (0.52-1.04) mg/dL Glucose 160 H (74-99) mg/dL POC Glucose (mg/dL) 164 H (75-99) mg/dL Diabetes panel 10/25/20 Range/Units 08:05 Sodium 138 (137-145) mmol/L Potassium 4.1 (3.5-5.1) mmol/L Chloride 105 (98-107) mmol/L Carbon Dioxide 25 (22-30) mmol/L BUN 19 H (7-17) mg/dL Creatinine 1.07 H (0.52-1.04) mg/dL Glucose 160 H (74-99) mg/dL Calcium 9.8 (8.4-10.2) mg/dL Calcium panel 10/25/20 Range/Units 08:05 Calcium 9.8 (8.4-10.2) mg/dL Pituitary panel 10/25/20 Range/Units 08:05 Sodium 138 (137-145) mmol/L Potassium 4.1 (3.5-5.1) mmol/L Chloride 105 (98-107) mmol/L Carbon Dioxide 25 (22-30) mmol/L BUN 19 H (7-17) mg/dL Creatinine 1.07 H (0.52-1.04) mg/dL Glucose 160 H (74-99) mg/dL Calcium 9.8 (8.4-10.2) mg/dL Adrenal panel 10/25/20 Range/Units 08:05 Sodium 138 (137-145) mmol/L Potassium 4.1 (3.5-5.1) mmol/L Chloride 105 (98-107) mmol/L Carbon Dioxide 25 (22-30) mmol/L BUN 19 H (7-17) mg/dL Creatinine 1.07 H (0.52-1.04) mg/dL Glucose 160 H (74-99) mg/dL Calcium 9.8 (8.4-10.2) mg/dL - Imaging CT scan - chest: report reviewed, image reviewed EKG: image reviewed Additional studies: Heart catheterization films reviewed Assessment and Plan Assessment: 1. Symptomatic coronary artery disease with left main disease, unstable angina 2. Hyperkalemia on admission, resolved 3. Hypertension 4. Hyperlipidemia 5. Xzv-avjenxz-fcjixgyil diabetes 6. Hypothyroid 7. Obesity 8. 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 Family history of premature coronary artery disease with a brother having stents at less than 55 years old Plan: The patient was seen and examined on the observation unit. Chart/diagnostics were reviewed. The case will be discussed in detail with Dr. Mills. The usual perioperative course of coronary artery bypass surgery was discussed in detail with the patient, risks and benefits were reviewed, all questions were answered to the best of my ability. The patient is willing to consent to surgery. Preoperative testing was initiated. Once testing has been completed STS risk score will be calculated and discussed with the patient. We recommend continuing aspirin, statin, beta sobeida therapy. Risk factor modification recommended and discussed with the patient. More recommendations to follow regarding surgical intervention. Continued medical management of other comorbidities per primary care service. Thank you Dr. Duran for this consult. We look forward to working with you in the care of your patient. Time with Patient: Greater than 30 <Brett Mills - Last Filed: 10/28/20 16:57> Surgical - Exam Vital Signs Temp Pulse Resp BP Pulse Ox 98 F 68 18 149/73 100 10/24/20 08:11 10/24/20 08:11 10/24/20 08:11 10/24/20 08:11 10/24/20 08:11 Results - Labs 10/28/20 15:39 10/28/20 15:39 Abnormal Lab Results - Last 24 Hours (Table) 10/27/20 10/27/20 10/27/20 Range/Units 08:20 16:52 20:31 WBC (3.8-10.6) k/uL RBC (3.80-5.40) m/uL Hgb (11.4-16.0) gm/dL Hct (34.0-46.0) % Plt Count (150-450) k/uL Neutrophils # (1.3-7.7) k/uL PT (9.0-12.0) sec INR (<1.2) APTT (22.0-30.0) sec ABG pH (7.35-7.45) ABG pCO2 (35-45) mmHg ABG pO2 (83-108) mmHg ABG Total CO2 (19-24) mmol/L ABG O2 Saturation (94-97) % Chloride (98-107) mmol/L Glucose (74-99) mg/dL POC Glucose (mg/dL) 159 H 157 H (75-99) mg/dL Calcium (8.4-10.2) mg/dL Magnesium (1.6-2.3) mg/dL AST (14-36) U/L Alkaline Phosphatase (38-126) U/L Total Protein (6.3-8.2) g/dL Albumin (3.5-5.0) g/dL Crossmatch See Detail 10/28/20 10/28/20 10/28/20 Range/Units 06:25 15:36 15:39 WBC 12.3 H (3.8-10.6) k/uL RBC 3.04 L (3.80-5.40) m/uL Hgb 9.7 L D (11.4-16.0) gm/dL Hct 27.6 L (34.0-46.0) % Plt Count 106 L D (150-450) k/uL Neutrophils # 9.0 H (1.3-7.7) k/uL PT (9.0-12.0) sec INR (<1.2) APTT (22.0-30.0) sec ABG pH (7.35-7.45) ABG pCO2 (35-45) mmHg ABG pO2 (83-108) mmHg ABG Total CO2 (19-24) mmol/L ABG O2 Saturation (94-97) % Chloride (98-107) mmol/L Glucose (74-99) mg/dL POC Glucose (mg/dL) 172 H 166 H (75-99) mg/dL Calcium (8.4-10.2) mg/dL Magnesium (1.6-2.3) mg/dL AST (14-36) U/L Alkaline Phosphatase (38-126) U/L Total Protein (6.3-8.2) g/dL Albumin (3.5-5.0) g/dL Crossmatch 10/28/20 10/28/20 10/28/20 Range/Units 15:39 15:39 15:47 WBC (3.8-10.6) k/uL RBC (3.80-5.40) m/uL Hgb (11.4-16.0) gm/dL Hct (34.0-46.0) % Plt Count (150-450) k/uL Neutrophils # (1.3-7.7) k/uL PT 13.2 H (9.0-12.0) sec INR 1.3 H (<1.2) APTT 33.4 H (22.0-30.0) sec ABG pH 7.30 L (7.35-7.45) ABG pCO2 47 H (35-45) mmHg ABG pO2 397 H (83-108) mmHg ABG Total CO2 25 H (19-24) mmol/L ABG O2 Saturation 100.0 H (94-97) % Chloride 111 H (98-107) mmol/L Glucose 149 H (74-99) mg/dL POC Glucose (mg/dL) (75-99) mg/dL Calcium 7.7 L (8.4-10.2) mg/dL Magnesium 2.4 H (1.6-2.3) mg/dL AST 68 H (14-36) U/L Alkaline Phosphatase <20 L (38-126) U/L Total Protein 4.0 L (6.3-8.2) g/dL Albumin 2.4 L (3.5-5.0) g/dL Crossmatch 10/28/20 Range/Units 16:14 WBC (3.8-10.6) k/uL RBC (3.80-5.40) m/uL Hgb (11.4-16.0) gm/dL Hct (34.0-46.0) % Plt Count (150-450) k/uL Neutrophils # (1.3-7.7) k/uL PT (9.0-12.0) sec INR (<1.2) APTT (22.0-30.0) sec ABG pH (7.35-7.45) ABG pCO2 (35-45) mmHg ABG pO2 (83-108) mmHg ABG Total CO2 (19-24) mmol/L ABG O2 Saturation (94-97) % Chloride (98-107) mmol/L Glucose (74-99) mg/dL POC Glucose (mg/dL) 195 H (75-99) mg/dL Calcium (8.4-10.2) mg/dL Magnesium (1.6-2.3) mg/dL AST (14-36) U/L Alkaline Phosphatase (38-126) U/L Total Protein (6.3-8.2) g/dL Albumin (3.5-5.0) g/dL Crossmatch Diabetes panel 10/28/20 Range/Units 15:39 Sodium 138 (137-145) mmol/L Potassium 4.7 (3.5-5.1) mmol/L Chloride 111 H (98-107) mmol/L Carbon Dioxide 24 (22-30) mmol/L BUN 17 (7-17) mg/dL Creatinine 0.74 (0.52-1.04) mg/dL Glucose 149 H (74-99) mg/dL Calcium 7.7 L (8.4-10.2) mg/dL AST 68 H (14-36) U/L ALT 15 (4-34) U/L Alkaline Phosphatase <20 L (38-126) U/L Total Protein 4.0 L (6.3-8.2) g/dL Albumin 2.4 L (3.5-5.0) g/dL Calcium panel 10/28/20 Range/Units 15:39 Calcium 7.7 L (8.4-10.2) mg/dL Ionized Calcium Krunal 4.9 (4.5-5.3) mg/dL Albumin 2.4 L (3.5-5.0) g/dL Pituitary panel 10/28/20 Range/Units 15:39 Sodium 138 (137-145) mmol/L Potassium 4.7 (3.5-5.1) mmol/L Chloride 111 H (98-107) mmol/L Carbon Dioxide 24 (22-30) mmol/L BUN 17 (7-17) mg/dL Creatinine 0.74 (0.52-1.04) mg/dL Glucose 149 H (74-99) mg/dL Calcium 7.7 L (8.4-10.2) mg/dL Adrenal panel 10/28/20 Range/Units 15:39 Sodium 138 (137-145) mmol/L Potassium 4.7 (3.5-5.1) mmol/L Chloride 111 H (98-107) mmol/L Carbon Dioxide 24 (22-30) mmol/L BUN 17 (7-17) mg/dL Creatinine 0.74 (0.52-1.04) mg/dL Glucose 149 H (74-99) mg/dL Calcium 7.7 L (8.4-10.2) mg/dL Total Bilirubin 1.3 (0.2-1.3) mg/dL AST 68 H (14-36) U/L ALT 15 (4-34) U/L Alkaline Phosphatase <20 L (38-126) U/L Total Protein 4.0 L (6.3-8.2) g/dL Albumin 2.4 L (3.5-5.0) g/dL Assessment and Plan Plan: The patient was seen and examined. I agree with the above assessment and plan. The patient is a 75 year old female who was admitted to the hospital with left upper extremity pain. Cath reveals a tight left main coronary artery lesion. Coronary artery bypass was recommended. The risks, benefits, and alternatives to surgery were discussed with the patient. All of her questions were answered. We will complete her pre-operative work-up with plans for tentatively scheduling her surgery for 10/28.
[2020-10-25 10:20] LABS: Prothrombin Time 10.8 sec (9.0-12.0)
[2020-10-25 10:25] LABS: Partial Thromboplastin Time 21.7 sec (22.0-30.0)
[2020-10-25 11:16] LABS: Glucose,Whole Blood 137 mg/dL (75-99)
[2020-10-25] MEDS: PANTOPRAZOLE 40 MG/10 ML VIAL IVP SCH (11:18)
[2020-10-25] MEDS: hydroCHLOROthiazide 12.5 MG CAP PO SCH (11:19)
[2020-10-25] MEDS: SODIUM CHLORIDE 0.9% 1,000 ML IV SCH (11:19)
[2020-10-25] MEDS: ATORVASTATIN 40 MG TAB PO SCH (11:19)
--- NOTE | 2020-10-25 13:23 | P.PN ---
Subjective Progress Note Date: 10/25/20 This is 75-year-old female with a abnormal stress test back in August, reports head golf coach recommended cardiac catheterization but patient was afraid to come into hospital for fear of contacting Covid. Developed left arm pain earlier this morning, accompanied by numbness in left upper chest pressure, proceeded to the ER. Denies nausea vomiting or diarrhea. Denies diaphoresis. Denies fever or chills. Denies lightheadedness, dizziness or focal deficits. EKG reported sinus rhythm, inferior infarct age undetermined, troponins negative 3 ,chest x- ray reported no acute cardiopulmonary process. Afebrile, maintaining O2 sats in the high 90s on room air .hematology unremarkable, INR 1, sodium 135, potassium 5.5, BUN 20, creatinine 0.98, glucose 196, magnesium 1.7. Elevated AST of 39. Evaluated by cardiology and patient is scheduled for cardiac catheterization in the a.m. Underwent cardiac catheterization this morning, reporting left main 70% stenosis, mid LAD 70% stenosis, circumflex 70-80% stenosis and RCA 70-80% stenosis. Cardiothoracic surgery consulted regarding CABG. Renal function mildly elevated 1.07, maintained on IV fluid hydration. Currently denies any chest pain, palpitations or shortness of breath. Telemetry sinus rhythm. Blood sugars controlled. Objective - Vital Signs Vital signs: Vital Signs Temp 97.9 F 10/25/20 08:58 Pulse 51 L 10/25/20 10:00 Resp 16 10/25/20 08:58 BP 110/67 10/25/20 10:00 Pulse Ox 98 10/25/20 10:00 Intake & Output 10/24/20 10/25/20 10/25/20 18:59 06:59 18:59 Intake Total 100 Balance 100 Weight 72.575 kg Intake: IV 100 Other: Voiding Method Toilet Toilet # Voids 1 2 - Exam PHYSICAL EXAM: VITAL SIGNS: [As above] GENERAL: Lying in bed, no acute distress HEENT: Conjunctivae normal. eyes normal. NECK: No JVD. No thyroid enlargement. No LNs CARDIOVASCULAR: S1, S2 regular.. No murmur RESPIRATION: Breath sounds diminished in the bases. No rhonchi or crackles. No chest wall tenderness. ABDOMEN: Soft, nontender . No guarding. no masses palpable. Positive Bowel so unds. LEGS: No edema. no swelling PSYCHIATRY: Alert and oriented X3, mood and affect normal. NERVOUS SYSTEM: Cranial N 2-12 grossly normal. Moves all 4 limbs. No focal deficits. Strength and sensation grossly intact.. Skin: Warm and dry, no rash - Labs CBC & Chem 7: 10/25/20 08:05 10/25/20 08:05 Labs: Abnormal Lab Results - Last 24 Hours (Table) 10/24/20 10/24/20 10/25/20 Range/Units 17:16 20:51 05:55 APTT (22.0-30.0) sec BUN (7-17) mg/dL Creatinine (0.52-1.04) mg/dL Glucose (74-99) mg/dL POC Glucose (mg/dL) 128 H 170 H 164 H (75-99) mg/dL HDL Cholesterol (40-60) mg/dL 10/25/20 10/25/20 10/25/20 Range/Units 08:05 09:36 09:36 APTT 21.7 L (22.0-30.0) sec BUN 19 H (7-17) mg/dL Creatinine 1.07 H (0.52-1.04) mg/dL Glucose 160 H (74-99) mg/dL POC Glucose (mg/dL) (75-99) mg/dL HDL Cholesterol 29 L (40-60) mg/dL 10/25/20 Range/Units 11:15 APTT (22.0-30.0) sec BUN (7-17) mg/dL Creatinine (0.52-1.04) mg/dL Glucose (74-99) mg/dL POC Glucose (mg/dL) 137 H (75-99) mg/dL HDL Cholesterol (40-60) mg/dL Assessment and Plan Assessment: Acute chest pain, unstable angina ,recent abnormal stress test in August 2020. Status post cardiac catheterization reporting CAD with left main disease. Family history of premature CAD Hyperkalemia, Diabetes mellitus Hypertension Hyperlipidemia Hypothyroidism Plan: Continue on current medication regime ,monitoring and symptomatic treatment. Cardiothoracic surgery consulted regarding CABG. The impression and plan of care has been dictated as directed. : I performed a history and examination of this patient, discussed the same with the dictator. I agree with the dictator's note ,documented as a scribe. Any additional findings or plans will be noted.
--- NOTE | 2020-10-25 13:28 | ECHOF ---
Referral Reason:cp, triple vessel disease MEASUREMENTS -------- HEIGHT: 152.4 cm WEIGHT: 72.6 kg BP: 153/71 RVIDd: 2.5 cm (< 3.3) IVSd: 1.1 cm (0.6 - 1.1) LVIDd: 3.9 cm (3.9 - 5.3) LVPWd: 1.5 cm (0.6 - 1.1) IVSs: 1.5 cm LVIDs: 2.5 cm LVPWs: 1.4 cm LAESV Index (A-L): 20.65 ml/m Ao Diam: 2.8 cm (2.0 - 3.7) AV Cusp: 1.8 cm (1.5 - 2.6) LA Diam: 3.4 cm (2.7 - 3.8) MV EXCURSION: 14.883 mm (> 18.000) MV EF SLOPE: 48 mm/s (70 - 150) EPSS: 0.9 cm MV E Jordy: 0.88 m/s MV DecT: 229 ms MV A Jordy: 1.10 m/s MV E/A Ratio: 0.80 RAP: 5.00 mmHg RVSP: 32.74 mmHg FINDINGS -------- Resting bradycardia (HR<60bpm). This was a technically difficult study with suboptimal apical views. The left ventricular size is normal. There is mild concentric left ventricular hypertrophy. Overa ll left ventricular systolic function is normal with, an EF between 55 - 60 %. The diastolic fillin g pattern is normal for the age of the patient 16.20. The right ventricle is normal in size. Normal LA size by volume 22+/-6 ml/m2. The right atrial size is normal. 5.0mg of Lumason was utilized for enhancement of images Interatrial and interventricular septum intact. There is no evidence of aortic regurgitation. There is no evidence of aortic stenosis. There is trace mitral regurgitation. Mild tricuspid regurgitation present. There is no evidence of pulmonary hypertension. The right v entricular systolic pressure, as measured by Doppler, is 32.74mmHg. There is no pulmonic regurgitation present. The aortic root size is normal. IVC Not well visulized. There is no pericardial effusion. CONCLUSIONS -------- 1. The left ventricular size is normal. 2. There is mild concentric left ventricular hypertrophy. 3. Overall left ventricular systolic function is normal with, an EF between 55 - 60 %. 4. The diastolic filling pattern is normal for the age of the patient 16.20 5. Normal LA size by volume 22+/-6 ml/m2. 6. The right atrial size is normal. 7. There is no evidence of aortic regurgitation. 8. There is no evidence of aortic stenosis. 9. There is trace mitral regurgitation. 10. Mild tricuspid regurgitation present. 11. There is no evidence of pulmonary hypertension. 12. The right ventricular systolic pressure, as measured by Doppler, is 32.74mmHg. MOLD TOOLING TECHNICIAN: Brittany Gallegos RDCS
[2020-10-25 14:09] LABS: Appearance,Urine Clear (Clear); Bacteria,Urine Rare /hpf; Bilirubin,Urine Negative (Negative); Blood,Urine Negative (Negative); Color,Urine Light Yellow; Glucose,Urine (UA) Negative (Negative); Ketones,Urine Negative (Negative); Leukocyte Esterase,Urine Trace (Negative); Nitrite,Urine Negative (Negative); Protein,Urine Negative (Negative); RBC,Urine <1 /hpf (0-5); Specific Gravity,Urine 1.038 (1.001-1.035); Urobilinogen,Urine <2.0 mg/dL (<2.0); WBC,Urine 2 /hpf (0-5)
--- NOTE | 2020-10-25 16:01 | US ---
EXAMINATION TYPE: US carotid duplex BILAT DATE OF EXAM: 10/25/2020 COMPARISON: NONE CLINICAL HISTORY: 75-year-old female Pre-Op Cardiac Surgery. CAD TECHNIQUE: Carotid duplex ultrasound examination. Indirect Doppler criteria is utilized. FINDINGS: EXAM MEASUREMENTS: RIGHT: Peak Systolic Velocity (PSV) cm/sec ----- Right CCA: 47.6 ----- Right ICA: 87.5 ----- Right ECA: 59.0 ICA/CCA ratio: 1.8 RIGHT: End Diastole cm/sec ----- Right CCA: 12.7 ----- Right ICA: 22.6 ----- Right ECA: 0.0 LEFT: Peak Systolic Velocity (PSV) cm/sec ----- Left CCA: 59.0 ----- Left ICA: 91.4 ----- Left ECA: 60.7 ICA/CCA ratio: 1.5 LEFT: End Diastole cm/sec ----- Left CCA: 15.0 ----- Left ICA: 21.5 ----- Left ECA: 0.0 VERTEBRALS (direction of flow): Right Vertebral: Antegrade Left Vertebral: Antegrade Rhythm: Normal Audit Associate notes: Moderate hyperechoic, shadowing plaque seen in proximal bilateral ICA with mild in roxanna intimal wall thickening seen in ECA and CCA bilaterally. IMPRESSION: No hemodynamically significant internal carotid artery stenosis on either side. Criteria for Assigning % of Stenosis / Diameter reduction (Estimation based on the indirect measurements of the internal carotid artery velocities (ICA PSV). 1. Normal (no stenosis)=ICA PSV < 125 cm/s: ratio < 2.0: ICA EDV<40 cm/s. 2. Less than 50% stenosis=ICA PSV < 125 cm/s: ratio < 2.0: ICA EDV<40 cm/s. 3. 50 to 69% stenosis=ICA PSV of 125 to 230 cm/s: ration 2.0 ? 4.0: ICA EDV 40-100 cm/s. 4. Greater than 70% stenosis to near occlusion= ICA PSV > 230 cm/s: ratio > 4.0: ICA EDV > 100 cm/s. 5. Near occlusion= ICA PSV velocities may be low or undetectable: variable ratio and ICA EDV. 6. Total occlusion=unable to detect flow.
[2020-10-25 17:10] LABS: Glucose,Whole Blood 164 mg/dL (75-99)
[2020-10-25 17:24] LABS: Hepatitis A Antibody IgM Non-Reactive (Non-Reactive); Hepatitis B Core IgM Non-Reactive (Non-Reactive); Hepatitis B Surface Antigen Non-Reactive (Non-Reactive); Hepatitis C IgG Antibody Non-Reactive (Non-Reactive)
[2020-10-25 18:15] LABS: Hemoglobin A1C 6.5 % (4.0-6.0)
[2020-10-25] MEDS ORDERED: amLODIPine 5 MG TAB PO SCH (21:00)
[2020-10-25] MEDS: MUPIROCIN 2% OINT 22 GM TUBE NASAL SCH (21:02)
[2020-10-25 21:05] LABS: Glucose,Whole Blood 162 mg/dL (75-99)
[2020-10-26] MEDS: SODIUM CHLORIDE 0.9% 1,000 ML IV SCH (00:37)
[2020-10-26 06:24] LABS: Glucose,Whole Blood 153 mg/dL (75-99)
[2020-10-26] MEDS: atenoloL 25 MG TAB PO SCH (06:42)
[2020-10-26] MEDS: LEVOTHYROXINE 112 MCG TAB PO SCH (06:42)
[2020-10-26] MEDS: INSULIN ASPART (NovoLOG) 100 UNIT/ML VIAL SQ SCH ×4 (06:42→21:38)
[2020-10-26] MEDS: PANTOPRAZOLE 40 MG TABLET PO SCH (06:42)
[2020-10-26 08:21] LABS: HCT 36.5 % (34.0-46.0); HGB 12.4 gm/dL (11.4-16.0); MCH 30.6 pg (25.0-35.0); MCHC 34.1 g/dL (31.0-37.0); MCV 89.6 fL (80.0-100.0); Mean Platelet Volume 8.1; Platelet Count 221 k/uL (150-450); RBC 4.07 m/uL (3.80-5.40); RDW 13.6 % (11.5-15.5); WBC 8.4 k/uL (3.8-10.6)
--- NOTE | 2020-10-26 08:22 | P.PN ---
Subjective Progress Note Date: 10/26/20 Principal diagnosis: Symptomatic coronary artery disease with left main disease, unstable angina. 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 She does state she had an episode of left shoulder pain this morning when she woke up which she attributed to sleeping wrong, denies any chest pain or shortness of breath. Remains in sinus rhythm to sinus raheem, hemodynamically stable. Dr. Mills met with patient yesterday and talked with the and son via phone, recommends CABG Saturday. No other new concerns. Objective - Vital Signs Vital signs: Vital Signs Temp 97.6 F 10/26/20 03:00 Pulse 60 10/26/20 03:00 Resp 18 10/26/20 03:00 BP 150/65 10/26/20 03:00 Pulse Ox 95 10/26/20 03:00 Intake & Output 10/25/20 10/26/20 10/26/20 18:59 06:59 18:59 Intake Total 100 Balance 100 Intake: IV 100 Other: Voiding Method Toilet Toilet # Voids 1 2 - Constitutional General appearance: Present: cooperative, no acute distress, obese - Respiratory Details: Lungs sounds clear bilaterally. Respirations even, nonlabored. Currently on room air with oxygen saturation 95%. Able to achieve 1500 mL on her incentive spirometer. - Cardiovascular Details: S1, S2 present. Regular rate and rhythm, sinus rhythm to sinus raheem on telemetry with heart rate in the high 50s to low 60s. Palpable peripheral pulses bilaterally. No edema present. No calf pain or tenderness noted. - Gastrointestinal Gastrointestinal Comment(s): Abdomen soft, non-tender, non-distended. Active bowel sounds x 4 quadrants. Tolerating diet. - Genitourinary Genitourinary Comment(s): Continues to void - Integumentary Integumentary Comment(s): Skin is warm and dry with evidence of good perfusion - Neurologic Neurologic: Present: CNII-XII intact - Musculoskeletal Musculoskeletal: Present: gait normal, strength equal bilaterally - Psychiatric Psychiatric: Present: A&O x's 3, appropriate affect, intact judgment & insight - Allied health notes Allied health notes reviewed: nursing - Labs CBC & Chem 7: 10/26/20 08:05 10/26/20 08:05 Labs: Abnormal Lab Results - Last 24 Hours (Table) 10/25/20 10/25/20 10/25/20 Range/Units 08:05 09:36 09:36 APTT 21.7 L (22.0-30.0) sec BUN 19 H (7-17) mg/dL Creatinine 1.07 H (0.52-1.04) mg/dL Glucose 160 H (74-99) mg/dL POC Glucose (mg/dL) (75-99) mg/dL Hemoglobin A1c 6.5 H (4.0-6.0) % HDL Cholesterol (40-60) mg/dL Ur Specific [place] (1.001-1.035) Ur Leukocyte Esterase (Negative) Urine Bacteria (None) /hpf 10/25/20 10/25/20 10/25/20 Range/Units 09:36 11:15 13:22 APTT (22.0-30.0) sec BUN (7-17) mg/dL Creatinine (0.52-1.04) mg/dL Glucose (74-99) mg/dL POC Glucose (mg/dL) 137 H (75-99) mg/dL Hemoglobin A1c (4.0-6.0) % HDL Cholesterol 29 L (40-60) mg/dL Ur Specific [place] 1.038 H (1.001-1.035) Ur Leukocyte Esterase Trace H (Negative) Urine Bacteria Rare H (None) /hpf 10/25/20 10/25/20 10/26/20 Range/Units 17:08 20:52 06:21 APTT (22.0-30.0) sec BUN (7-17) mg/dL Creatinine (0.52-1.04) mg/dL Glucose (74-99) mg/dL POC Glucose (mg/dL) 164 H 162 H 153 H (75-99) mg/dL Hemoglobin A1c (4.0-6.0) % HDL Cholesterol (40-60) mg/dL Ur Specific [place] (1.001-1.035) Ur Leukocyte Esterase (Negative) Urine Bacteria (None) /hpf Microbiology - Last 24 Hours (Table) 10/25/20 13:22 Nasal Screen MRSA/MSSA - Preliminary Nasal Swab Assessment and Plan Assessment: 1. Symptomatic coronary artery disease with left main disease, unstable angina 2. Hyperkalemia on admission, resolved 3. Acute kidney injury 4. Hypertension 5. Hyperlipidemia, treated, cholesterol 124, LDL 71 6. Jct-xnhocle-hohbgzodb diabetes with A1c 6.5% 7. Hypothyroid 8. Obesity 9. 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 Never smoker, FEV1 102% of predicted 11. Family history of premature coronary artery disease with a brother having stents at less than 55 years old Plan: 1. Continue ASA, statin, beta sobeida 2. Encourage incentive spirometry use 3. Our plan is for myocardial revascularization with left internal mammary artery, endoscopic vein harvest, possible left radial artery harvest on Saturday10/28/[address] Mlils 4. We will obtain CT scan of chest without contrast to eval ascending aorta for clampability 5. Continue preoperative teaching 6. STS risk score calculated and discussed with patient 7. Continue risk factor modification 8. Medical management of other comorbidities per primary care service 9. More recommendations to follow based on patient's progress Time with Patient: Greater than 30
[2020-10-26 08:30] LABS: Calcium 9.7 mg/dL (8.4-10.2); Potassium 4.2 mmol/L (3.5-5.1)
[2020-10-26] MEDS: MUPIROCIN 2% OINT 22 GM TUBE NASAL SCH ×2 (09:27→21:38)
[2020-10-26] MEDS: ATORVASTATIN 40 MG TAB PO SCH (09:27)
[2020-10-26] MEDS: ASPIRIN 81 MG PO SCH (09:27)
[2020-10-26] MEDS: hydroCHLOROthiazide 12.5 MG CAP PO SCH (09:27)
--- NOTE | 2020-10-26 09:40 | P.CNPUL ---
History of Present Illness Consult date: 10/26/20 Requesting physician: Jarett Gomez Jr Reason for consult: chest pain Chief complaint: Chest pain History of present illness: 75-year-old female who presented to the emergency department on October 24 at 8:00 in the morning. She apparently had chest tightness and pain. It began at 3 AM in the morning and occurred for about 5 hours before she arrived to the emergency department. The pain apparently was also noted in the left arm, and she had chest tightness as well as pain. She had no nausea, vomiting, or diaphoresis. She apparently did have an abnormal stress test in the fall, and it was recommended at that time that she have a cardiac catheterization. Her initial plan was to go down to [place]. She was given a prescription and the time down there and then come back in January and have her heart catheterization at that time. Apparently family members talked her out of it and she decided to have a heart catheterization done right away. The heart catheterization revealed a 70% occlusion in the left main, 70% occlusion in the left anterior descending coronary artery, 70% to 80% occlusion and the circumflex coronary artery and a 70% occlusion and the right coronary artery. Bypass grafting was recommended by cardiology. She apparently is going to have surgery on Saturday. We were asked to see her in preop evaluation. She does not have any history of any lung issues. She is a lifelong nonsmoker. She denies any emphysema, chronic bronchitis, asthma, or COPD. Her lung function were quite good. Her FEV1 percent was 102%. She does carry with her diagnosis of hypertension, diabetes, hyperlipidemia, and hypothyroidism. Review of Systems REVIEW OF SYSTEMS: CONSTITUTIONAL: [Negative.] NEUROLOGIC: [ Negative.] HEENT: [ Negative.] CARDIAC: Chest pain and tightness. PULMONARY: [Negative.] GI: [Negative.] : [Negative.] RHEUMATOLOGIC: [ Negative.] IMMUNOLOGIC: [ Negative.] ENDOCRINE: [Negative. ] DERMATOLOGIC: [Negative.] 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 History of Any Multi-Drug Resistant Organisms: None Reported Past Surgical History: Section, Orthopedic Surgery Additional Past Surgical History / Comment(s): Left knee replacement Past Psychological History: No Psychological Hx Reported Smoking Status: Never smoker Past Alcohol Use History: None Reported Past Drug Use History: None Reported - Past Family History Father Family Medical History: Myocardial Infarction (HI) Additional Family Medical History / Comment(s): from myocardial infarction at 70 years old Mother Additional Family Medical History / Comment(s): from "enlarged heart" at 87 years old Brother(s) Family Medical History: Coronary Artery Disease (CAD) Additional Family Medical History / Comment(s): Multiple stents placed, starting at less than 55 years of age Son(s) Family Medical History: CVA/TIA Additional Family Medical History / Comment(s): from stroke at 41 years old Medications and Allergies Home Medications Medication Instructions Recorded Confirmed Type Aspirin EC [Ecotrin Low Dose] 81 mg PO HS 10/24/20 10/24/20 History Atorvastatin [Lipitor] 40 mg PO [id number]@2100 10/24/20 10/24/20 History Levothyroxine Sodium [Synthroid] 112 mcg PO -KT 10/24/20 10/24/20 History Valsartan/Hydrochlorothiazide 1 tab PO -KFST 10/24/20 10/24/20 History [Valsartan-Hctz 160-12.5 mg Tab] atenoloL [Atenolol] 25 mg PO -KT 10/24/20 10/24/20 History sitaGLIPtin [Januvia] 100 mg PO -KFST 10/24/20 10/24/20 History Allergies Allergy/AdvReac Type Severity Reaction Status Date / Time epinephrine AdvReac Rapid Verified 10/24/20 10:00 Heart Rate Physical Exam Osteopathic Statement: *. No significant issues noted on an osteopathic structural exam other than those noted in the History and Physical/Consult. Vitals: Vital Signs Temp Pulse Resp BP BP Pulse Ox 10/26/20 08:23 96.4 F L 60 16 121/61 98 10/26/20 03:00 97.6 F 60 18 150/65 95 10/25/20 21:15 98.3 F 56 L 18 126/69 98 10/25/20 18:25 97.9 F 56 L 147/77 99 10/25/20 15:38 56 L 16 10/25/20 12:32 56 L 126/58 10/25/20 11:38 49 L 129/73 95 10/25/20 10:30 53 L 121/60 95 10/25/20 10:00 51 L 110/67 98 Intake and Output 10/25/20 10/26/20 10/26/20 22:59 06:59 14:59 Other: Voiding Method Toilet Toilet Toilet # Voids 1 2 No acute distress, oriented 3. HEENT examination is grossly unremarkable. Mucous membranes are moist. No oral lesions. Neck supple. Full range of motion. No adenopathy thyromegaly or neck vein distention. Cardiovascular examination reveals regular rhythm rate. S1-S2 normal. No S3 or S4. No discernible murmur noted. Lungs reveal clear breath sounds. Her sounds are equal bilaterally. No adventitious lung sounds including wheezes rhonchi or crackles. Abdomen soft bowel sounds are heard. No masses or tenderness. Extremities are intact. No cyanosis clubbing or edema. Skin is without rash or lesion. Neurologic examination is brief but nonfocal. Results - Laboratory Findings CBC and BMP: 10/26/20 08:05 10/26/20 08:05 PT/INR, D-dimer PT 10.8 sec (9.0-12.0) 10/25/20 09:36 INR 1.0 (<1.2) 10/25/20 09:36 Abnormal lab findings: Abnormal Labs 10/24/20 10/24/20 10/24/20 08:29 08:45 17:16 APTT 18.9 L Sodium 135 L Potassium 5.5 H BUN 20 H Creatinine Glucose 196 H POC Glucose (mg/dL) 128 H Hemoglobin A1c AST 39 H HDL Cholesterol Ur Specific [place] Ur Leukocyte Esterase Urine Bacteria 10/24/20 10/25/20 10/25/20 20:51 05:55 08:05 APTT Sodium Potassium BUN 19 H Creatinine 1.07 H Glucose 160 H POC Glucose (mg/dL) 170 H 164 H Hemoglobin A1c AST HDL Cholesterol Ur Specific [place] Ur Leukocyte Esterase Urine Bacteria 10/25/20 10/25/20 10/25/20 09:36 09:36 09:36 APTT 21.7 L Sodium Potassium BUN Creatinine Glucose POC Glucose (mg/dL) Hemoglobin A1c 6.5 H AST HDL Cholesterol 29 L Ur Specific [place] Ur Leukocyte Esterase Urine Bacteria 0110/25/20 10/25/20 11:15 13:22 17:08 APTT Sodium Potassium BUN Creatinine Glucose POC Glucose (mg/dL) 137 H 164 H Hemoglobin A1c AST HDL Cholesterol Ur Specific [place] 1.038 H Ur Leukocyte Esterase Trace H Urine Bacteria Rare H 10/25/20 10/26/20 10/26/20 20:52 06:21 08:05 APTT Sodium Potassium BUN 21 H Creatinine 1.21 H Glucose 240 H POC Glucose (mg/dL) 162 H 153 H Hemoglobin A1c AST HDL Cholesterol Ur Specific [place] Ur Leukocyte Esterase Urine Bacteria - Diagnostic Findings Chest x-ray: image reviewed Assessment and Plan Assessment: Severe coronary artery disease, with anticipated bypass grafting on 10/28/2020. No evidence of lung disease at this time, with excellent preoperative spirometry. History of hypertension. History of diabetes mellitus. History of hyperlipidemia. Hypothyroidism. Lifelong nonsmoker. Plan: Plan dated 10/26/2020. Today, we met the patient and we reviewed her preoperative spirometry. Her lung function were excellent. She denies any history of lung disease. She is a lifelong nontobacco user. We also explained the role and the whole process including getting her off the mechanical ventilator after surgery, and following her throughout her hospitalization to make sure that her lungs remain healthy. We did emphasize importance of deep breathing coughing and clearing his secretions as well as the use of the incentive spirometer. Her surgery is planned on 10/28/2020. Time with Patient: Greater than 30
--- NOTE | 2020-10-26 10:05 | P.PN ---
Subjective HISTORY OF PRESENTING ILLNESS This is a pleasant 75-year-old female past medical history significant for hypertension, dyslipidemia, diabetes mellitus and chronic neck pain. She follows in the office with Dr. Duran. She underwent cardiac catheterization with Dr. Duran revealing significant damping and ostial lesion of the left main 70%, LAD 30% lesion proximally and 70% mid, circumflex with an 80% ostial lesion and RCA with 70-80% ostial lesion. She is scheduled to undergo coronary artery bypass grafting on Saturday. She is seen and examined sitting up eating breakfast in no acute distress. She denies any symptoms of chest discomfort. She has been up and ambulating in the halls. She has no shortness of breath, dizziness or palpitations. She did wake up this morning with a vague discomfort in the left neck and shoulder thought to be related to her sleeping position that did improve once she got up and started moving around. Blood pressure 121/61 heart rate 60 afebrile maintaining oxygen saturation on room air. Laboratory data reviewed, CBC unremarkable, sodium 137, potassium 4.2, creatinine 1.21. Currently maintained on amlodipine 5 mg at bedtime, aspirin 81 mg daily, atenolol 25 mg daily, atorvastatin 40 mg daily and hydrochlorothiazide 12.5 mg daily. PHYSICAL EXAMINATION CONSTITUTIONAL: No apparent distress. HEENT: Head is normocephalic. Pupils are equal, round. Sclerae anicteric. Mucous membranes of the mouth are moist. No JVD. No carotid bruit. CHEST EXAMINATION: Lungs are clear to auscultation. No chest wall tenderness is noted on palpation or with deep breathing. HEART EXAMINATION: Regular rate and rhythm. S1, S2 heard. No murmurs, gallops or rub. EXTREMITIES: 2+ peripheral pulses, no lower extremity edema and no calf tenderness. ASSESSMENT Chest pain Triple-vessel coronary artery disease scheduled to undergo bypass grafting on Saturday Abnormal stress test Acute kidney injury Hyperkalemia, improved Diabetes mellitus Hypertension Dyslipidemia PLAN Hold hydrochlorothiazide secondary to acute kidney injury. Repeat BMP in the morning. Incentive spirometer use encouraged around the clock while awake. Nurse Practitioner note has been reviewed, I agree with a documented findings and plan of care. Patient was seen and examined. Objective - Vital Signs Vital signs: Vital Signs Temp 96.4 F L 10/26/20 08:23 Pulse 60 01/13/21 08:23 Resp 16 10/26/20 08:23 BP 121/61 10/26/20 08:23 Pulse Ox 98 10/26/20 08:23 Intake & Output 10/25/20 10/26/20 10/26/20 18:59 06:59 18:59 Intake Total 100 Balance 100 Intake: IV 100 Other: Voiding Method Toilet Toilet Toilet # Voids 1 2 - Labs CBC & Chem 7: 10/26/20 08:05 10/26/20 08:05 Labs: Abnormal Lab Results - Last 24 Hours (Table) 10/25/20 10/25/20 10/25/20 Range/Units 09:36 09:36 09:36 APTT 21.7 L (22.0-30.0) sec BUN (7-17) mg/dL Creatinine (0.52-1.04) mg/dL Glucose (74-99) mg/dL POC Glucose (mg/dL) (75-99) mg/dL Hemoglobin A1c 6.5 H (4.0-6.0) % HDL Cholesterol 29 L (40-60) mg/dL Ur Specific [place] (1.001-1.035) Ur Leukocyte Esterase (Negative) Urine Bacteria (None) /hpf 10/25/20 10/25/20 10/25/20 Range/Units 11:15 13:22 17:08 APTT (22.0-30.0) sec BUN (7-17) mg/dL Creatinine (0.52-1.04) mg/dL Glucose (74-99) mg/dL POC Glucose (mg/dL) 137 H 164 H (75-99) mg/dL Hemoglobin A1c (4.0-6.0) % HDL Cholesterol (40-60) mg/dL Ur Specific [place] 1.038 H (1.001-1.035) Ur Leukocyte Esterase Trace H (Negative) Urine Bacteria Rare H (None) /hpf 10/25/20 10/26/20 10/26/20 Range/Units 20:52 06:21 08:05 APTT (22.0-30.0) sec BUN 21 H (7-17) mg/dL Creatinine 1.21 H (0.52-1.04) mg/dL Glucose 240 H (74-99) mg/dL POC Glucose (mg/dL) 162 H 153 H (75-99) mg/dL Hemoglobin A1c (4.0-6.0) % HDL Cholesterol (40-60) mg/dL Ur Specific [place] (1.001-1.035) Ur Leukocyte Esterase (Negative) Urine Bacteria (None) /hpf Microbiology - Last 24 Hours (Table) 10/25/20 13:22 Nasal Screen MRSA/MSSA - Preliminary Nasal Swab
[2020-10-26 11:10] LABS: Glucose,Whole Blood 140 mg/dL (75-99)
--- NOTE | 2020-10-26 11:23 | P.VSCSTY ---
Greater Saphenous Vein Mapping This is bilateral lower extremity greater saphenous vein mapping. Date of service: 10/25/2020 Vein quality and ultrasound appearance: We see no intraluminal thrombus or wall changes. Vein size groin right : 3 x 2.8 groin left: 6.7 x 4.3 High thigh right: To 0.6 x 2 high thigh left: 3.8 x 3 Mid thigh right: 2.3 x 1.6 mid thigh left: 3.2 x 2.7 Above-knee right: 2.3 x 1.8 above- knee left: 1.7 x 1.9 Below knee right: 2.3 x 1.7 below-knee left: 1.5 x 1.5 Mid calf right: 2.1 x 1.5 mid calf left: 2.7 x 1.2 Ankle right: 2.4 x 1.9 ankle left: 1.8 x 1.7 Impression: Vein bilaterally is rather small especially the lower leg. There may be some usable vein in the left thigh and less likely in the upper right thigh. Clinical correlation recommended.
[2020-10-26] MEDS ORDERED: MD COMMUNICATION TO PHARMACY 1 EACH MISC PO ONE ×2 (13:17)
--- NOTE | 2020-10-26 13:43 | CT ---
EXAMINATION TYPE: CT chest wo con DATE OF EXAM: 10/26/2020 COMPARISON: HISTORY: Eval ascending aorta CT DLP: 359.2 mGycm. Automated Exposure Control for Dose Reduction was Utilized. TECHNIQUE: CT scan of the thorax is performed without IV contrast. FINDINGS: LUNGS: The lungs are grossly clear, there is no concerning parenchymal mass or nodule identified. T here is no pleural effusion or pneumothorax seen. The tracheobronchial tree is patent. Subsegmental changes posteriorly at the lung bases most typical of dependent atelectasis. MEDIASTINUM: Lack of IV contrast is noted to limit evaluation for mediastinal and especially hilar ad enopathy. There are no definitive greater than 1 cm hilar or mediastinal lymph nodes. Dense coronary artery calcification noted. Mild atherosclerotic change of the aorta. Aorta of normal caliber. Athero sclerotic change at the origin of the brachiocephalic and left subclavian artery. Assessment for diss ection nondiagnostic due to the lack of contrast. Calcification near the region of the aortic valve. Correlate clinically. Trace amount of pericardial fluid. OTHER: Numerous gallstones. Simple appearing left renal cyst. Small hiatal hernia noted. Hypertrophic and degenerative change of the spine.. IMPRESSION: 1. Aorta of normal caliber with mild atherosclerotic change. No diagnostic evidence of aneurysm. Asse ssment for dissection nondiagnostic without IV contrast. 2. Posterior subsegmental basilar consolidation most typical of atelectasis. 3. Numerous gallstones 4. Cardiomegaly with dense coronary artery calcification.
--- NOTE | 2020-10-26 13:51 | P.PN ---
Subjective Progress Note Date: 10/26/20 This is 75-year-old female with a abnormal stress test back in August, reports sports activities foul judge recommended cardiac catheterization but patient was afraid to come into hospital for fear of contacting Covid. Developed left arm pain earlier this morning, accompanied by numbness in left upper chest pressure, proceeded to the ER. Denies nausea vomiting or diarrhea. Denies diaphoresis. Denies fever or chills. Denies lightheadedness, dizziness or focal deficits. EKG reported sinus rhythm, inferior infarct age undetermined, troponins negative 3 ,chest x- ray reported no acute cardiopulmonary process. Afebrile, maintaining O2 sats in the high 90s on room air .hematology unremarkable, INR 1, sodium 135, potassium 5.5, BUN 20, creatinine 0.98, glucose 196, magnesium 1.7. Elevated AST of 39. Evaluated by cardiology and patient is scheduled for cardiac catheterization in the a.m. Underwent cardiac catheterization this morning, reporting left main 70% stenosis, mid LAD 70% stenosis, circumflex 70-80% stenosis and RCA 70-80% stenosis. Cardiothoracic surgery consulted regarding CABG. Renal function mildly elevated 1.07, maintained on IV fluid hydration. Currently denies any chest pain, palpitations or shortness of breath. Telemetry sinus rhythm. Blood sugars controlled. 10/26/2020 ambulating, tolerating exertion well. No further chest pain reported. Denies palpitations or shortness of breath. Denies lightheadedness or dizziness or focal deficits. Scheduled for CABG on Saturday. Post cardiac cath, creatinine mildly trending up. Maintaining O2 sats in the 90s on room air. Afebrile. Objective - Vital Signs Vital signs: Vital Signs Temp 96.4 F L 10/26/20 08:23 Pulse 60 10/26/20 08:23 Resp 16 10/26/20 08:23 BP 121/61 10/26/20 08:23 Pulse Ox 98 10/26/20 08:23 Intake & Output 10/25/20 10/26/20 10/26/20 18:59 06:59 18:59 Intake Total 100 Balance 100 Intake: IV 100 Other: Voiding Method Toilet Toilet Toilet # Voids 1 2 - Exam PHYSICAL EXAM: VITAL SIGNS: [As above] GENERAL: Sitting up in bed, no acute distress HEENT: Conjunctivae normal. eyes normal. NECK: No JVD. No thyroid enlargement. CARDIOVASCULAR: S1, S2 regular. No murmur RESPIRATION: Breath sounds diminished in the bases. No rhonchi, crackles or wheezing ABDOMEN: Soft, nontender . No guarding. no masses palpable. Positive Bowel sounds. LEGS: No edema. no swelling PSYCHIATRY: Alert and oriented X3, mood and affect normal. NERVOUS SYSTEM: Cranial N 2-12 grossly normal. Moves all 4 limbs. No focal deficits. Strength and sensation grossly intact.. Skin: Warm and dry, no rash - Labs CBC & Chem 7: 10/26/20 08:05 10/26/20 08:05 Labs: Abnormal Lab Results - Last 24 Hours (Table) 10/25/20 10/25/20 10/25/20 Range/Units 09:36 13:22 17:08 BUN (7-17) mg/dL Creatinine (0.52-1.04) mg/dL Glucose (74-99) mg/dL POC Glucose (mg/dL) 164 H (75-99) mg/dL Hemoglobin A1c 6.5 H (4.0-6.0) % Ur Specific [place] 1.038 H (1.001-1.035) Ur Leukocyte Esterase Trace H (Negative) Urine Bacteria Rare H (None) /hpf 10/25/20 10/26/20 10/26/20 Range/Units 20:52 06:21 08:05 BUN 21 H (7-17) mg/dL Creatinine 1.21 H (0.52-1.04) mg/dL Glucose 240 H (74-99) mg/dL POC Glucose (mg/dL) 162 H 153 H (75-99) mg/dL Hemoglobin A1c (4.0-6.0) % Ur Specific [place] (1.001-1.035) Ur Leukocyte Esterase (Negative) Urine Bacteria (None) /hpf 10/26/20 Range/Units 11:09 BUN (7-17) mg/dL Creatinine (0.52-1.04) mg/dL Glucose (74-99) mg/dL POC Glucose (mg/dL) 140 H (75-99) mg/dL Hemoglobin A1c (4.0-6.0) % Ur Specific Jennings (1.001-1.035) Ur Leukocyte Esterase (Negative) Urine Bacteria (None) /hpf Microbiology - Last 24 Hours (Table) 10/25/20 13:22 Nasal Screen MRSA/MSSA - Preliminary Nasal Swab Assessment and Plan Assessment: Acute chest pain in a patient with prior abnormal stress test, Status post cardiac catheterization reporting CAD with left main disease. Acute renal failure post cardiac catheterization Hyperkalemia, Diabetes mellitus Hypertension Hyperlipidemia Hypothyroidism Plan: Continue on current medication regime ,monitoring and symptomatic treatment. Hydrochlorothiazide placed on hold, close monitoring of renal function, electrolytes with repeat labs ordered for a.m. aggressive pulmonary toileting with incentive spirometer reinforced. CABG scheduled for Saturday. The impression and plan of care has been dictated as directed. : I performed a history and examination of this patient, discussed the same with the dictator. I agree with the dictator's note ,documented as a scribe. Any additional findings or plans will be noted.
[2020-10-26 15:49] LABS: Glucose,Whole Blood 126 mg/dL (75-99)
[2020-10-26] MEDS ORDERED: ATORVASTATIN 40 MG TAB PO SCH (21:00)
[2020-10-26 21:32] LABS: Glucose,Whole Blood 183 mg/dL (75-99)
[2020-10-27 06:25] LABS: Glucose,Whole Blood 172 mg/dL (75-99)
[2020-10-27] MEDS: atenoloL 25 MG TAB PO SCH (06:29)
[2020-10-27] MEDS: LEVOTHYROXINE 112 MCG TAB PO SCH (06:29)
[2020-10-27] MEDS: PANTOPRAZOLE 40 MG TABLET PO SCH (06:29)
--- NOTE | 2020-10-27 08:18 | P.PN ---
Subjective Progress Note Date: 10/27/20 Principal diagnosis: Symptomatic multivessel coronary artery disease with left main disease, unstable angina. 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 Currently she is sitting to the bedside edge, is awake, alert and oriented 3. Denies any complaints of shortness of breath and denies any further episodes of left arm pain or chest pain. Remote telemetry is showing sinus bradycardia heart rate 56 bpm. Oxygen saturations are 96% on room air. Achieving 1500 mL on her incentive spirometry with encouragement. Preoperative teaching has been reinforced with the patient and her questions were answered to the best my ability. She is scheduled for myocardial revascularization surgery tomorrow 10/28/2020 to be performed by Dr. Brett Mills. Objective - Vital Signs Vital signs: Vital Signs Temp 98.3 F 10/27/20 03:00 Pulse 54 L 10/27/20 03:00 Resp 16 10/27/20 03:00 BP 110/64 10/27/20 03:00 Pulse Ox 96 10/27/20 03:00 Intake & Output 10/26/20 10/27/20 10/27/20 18:59 06:59 18:59 Intake Total 300 Balance 300 Intake: Oral 300 Other: Voiding Method Toilet Toilet # Voids 2 1 - Constitutional General appearance: Present: cooperative, no acute distress, obese - EENT Eyes: Present: dentition normal, normal appearance. Absent: scleral icterus ENT: Present: hearing grossly normal - Neck Details: neck is supple, no JVD, no lymphadenopathy. - Respiratory Details: lungs sounds essentially clear throughout. No wheezes, rhonchi or crackles. - Cardiovascular Details: Regular rhythm and rate. S1 and S2 present, negative for S3, gallop or murmur. Remote telemetry showing sinus bradycardia heart rate 56 bpm. No edema present. - Gastrointestinal Gastrointestinal Comment(s): Abdomen soft, nontender and nondistended. Active bowel sounds present all 4 abdominal quadrants. No guarding or rigidity. No organomegaly appreciated. Tolerating oral intake. - Genitourinary Genitourinary Comment(s): Continues to void. - Integumentary Integumentary Comment(s): Skin is warm and dry. No clubbing or cyanosis is present. No rash or abnormal pigmentation is present. - Neurologic Neurologic: Present: CNII-XII intact - Musculoskeletal Musculoskeletal: Present: gait normal, strength equal bilaterally - Psychiatric Psychiatric: Present: A&O x's 3, appropriate affect, intact judgment & insight - Allied health notes Allied health notes reviewed: nursing - Labs CBC & Chem 7: 10/26/20 08:05 10/26/20 08:05 Labs: Abnormal Lab Results - Last 24 Hours (Table) 10/26/20 10/26/20 10/26/20 Range/Units 08:05 11:09 15:47 BUN 21 H (7-17) mg/dL Creatinine 1.21 H (0.52-1.04) mg/dL Glucose 240 H (74-99) mg/dL POC Glucose (mg/dL) 140 H 126 H (75-99) mg/dL 10/26/20 10/27/20 Range/Units 21:31 06:23 BUN (7-17) mg/dL Creatinine (0.52-1.04) mg/dL Glucose (74-99) mg/dL POC Glucose (mg/dL) 183 H 172 H (75-99) mg/dL Microbiology - Last 24 Hours (Table) 10/25/20 13:22 Nasal Screen MRSA/MSSA - Final Nasal Swab Assessment and Plan Assessment: 1. Symptomatic multivessel coronary artery disease with left main disease 2. Unstable angina 3. Hyperkalemia on admission, resolved 4. Acute kidney injury 5. Hypertension 6. Hyperlipidemia, treated, cholesterol 124, LDL 71 7. Sls-ymnngdd-inxhyqare diabetes with A1c 6.5% 8. Hypothyroid 9. Obesity 10. Chronic neck pain due to compressed disks 11. Never smoker, FEV1 102% of predicted 12. Family history of premature coronary artery disease with a brother having stents at less than 55 years old Plan: 1. Continue to maximize medical therapy with aspirin, statin and beta sobeida. 2. Encourage use of incentive spirometry 10 times every hour while awake. 3. The patient is scheduled for myocardial revascularization surgery, with left internal mammary artery, endoscopic vein harvest, possible left radial artery harvest for 10/28/2020 to be performed by Dr. Brett Mills. 4. Nothing by mouth after midnight. 5. Preoperative teaching has been reinforced with the patient. 6. Continue risk factor modification. 7. Medical management and other comorbidities per primary care service. 8. More recommendations to follow based on patient's clinical course. Time with Patient: Greater than 30
[2020-10-27 08:50] LABS: Basophils # (A) 0.1 k/uL (0-0.2); Basophils % (A) 1 %; Eosinophils # (A) 0.2 k/uL (0-0.7); Eosinophils % (A) 2 %; HGB 11.9 gm/dL (11.4-16.0); Lymphocytes # (A) 2.2 k/uL (1.0-4.8); Lymphocytes % (A) 30 %; MCH 29.5 pg (25.0-35.0); MCV 89.2 fL (80.0-100.0); Mean Platelet Volume 8.1; Monocytes # (A) 0.3 k/uL (0-1.0); Monocytes % (A) 4 %; Neutrophils # (A) 4.8 k/uL (1.3-7.7); Neutrophils % (A) 63 %; Platelet Count 232 k/uL (150-450); RBC 4.04 m/uL (3.80-5.40); RDW 13.9 % (11.5-15.5); WBC 7.6 k/uL (3.8-10.6)
[2020-10-27 09:21] LABS: INR 0.9 (<1.2); Prothrombin Time 9.9 sec (9.0-12.0)
[2020-10-27 09:25] LABS: Magnesium 1.6 mg/dL (1.6-2.3); Potassium 4.7 mmol/L (3.5-5.1)
[2020-10-27 09:28] LABS: Calcium 9.5 mg/dL (8.4-10.2); Total Bilirubin 0.6 mg/dL (0.2-1.3); Total Protein 7.4 g/dL (6.3-8.2)
[2020-10-27 09:35] LABS: Partial Thromboplastin Time 20.4 sec (22.0-30.0)
[2020-10-27] MEDS: ASPIRIN 81 MG PO SCH (09:39)
[2020-10-27] MEDS: ATORVASTATIN 40 MG TAB PO SCH (09:39)
--- NOTE | 2020-10-27 09:42 | P.PN ---
Subjective Progress Note Date: 10/27/20 Principal diagnosis: Chest pain 75-year-old female who presented to the emergency department on October 24 at 8:00 in the morning. She apparently had chest tightness and pain. It began at 3 AM in the morning and occurred for about 5 hours before she arrived to the emergency department. The pain apparently was also noted in the left arm, and she had chest tightness as well as pain. She had no nausea, vomiting, or diaphoresis. She apparently did have an abnormal stress test in the fall, and it was recommended at that time that she have a cardiac catheterization. Her in itial plan was to go down to [place]. She was given a prescription and the time down there and then come back in January and have her heart catheterization at that time. Apparently family members talked her out of it and she decided to have a heart catheterization done right away. The heart catheterization revealed a 70% occlusion in the left main, 70% occlusion in the left anterior descending coronary artery, 70% to 80% occlusion and the circumflex coronary artery and a 70% occlusion and the right coronary artery. Bypass grafting was recommended by cardiology. She apparently is going to have surgery on Saturday. We were asked to see her in preop evaluation. She does not have any history of any lung issues. She is a lifelong nonsmoker. She denies any emphysema, chronic bronchitis, asthma, or COPD. Her lung function were quite good. Her FEV1 percent was 102%. She does carry with her diagnosis of hypertension, diabetes, hyperlipidemia, and hypothyroidism. Progress note dated 10/27/2020 75-year-old female with anticipated bypass grafting tomorrow. The surgery will be done by Dr. Mills. Currently, the patient seemed be doing relatively well. The patient is not receiving any supplemental oxygen. The patient is currently not receiving any IV fluids. The patient has had no further chest pain. She is resting comfortably. In fact we went to see her today, she was walking the hallway. Her catheterization revealed a 70% occlusion of the left main coronary artery, a 70% occlusion in the left anterior descending coronary artery, 70-80% occlusion in the circumflex coronary artery and a 70% occlusion in the right coronary artery. Her preoperative lung function were excellent. She is a lifelong nonsmoker. She denies any history of COPD, emphysema, chronic bronchitis, asthma, or any lung condition. She should do well. Objective - Vital Signs Vital signs: Vital Signs Temp 98.3 F 10/27/20 03:00 Pulse 54 L 10/27/20 03:00 Resp 16 10/27/20 03:00 BP 110/64 10/27/20 03:00 Pulse Ox 96 10/27/20 03:00 Intake & Output 10/26/20 10/27/20 10/27/20 18:59 06:59 18:59 Intake Total 300 Balance 300 Intake: Oral 300 Other: Voiding Method Toilet Toilet # Voids 2 1 - Exam No acute distress, oriented 3. HEENT examination is grossly unremarkable. Mucous membranes are moist. No oral lesions. Neck supple. Full range of motion. No adenopathy thyromegaly or neck vein distention. Cardiovascular examination reveals regular rhythm rate. S1-S2 normal. No S3 or S4. No discernible murmur noted. Lungs reveal clear breath sounds. Her sounds are equal bilaterally. No adventitious lung sounds including wheezes rhonchi or crackles. Abdomen soft bowel sounds are heard. No masses or tenderness. Extremities are intact. No cyanosis clubbing or edema. Skin is without rash or lesion. Neurologic examination is brief but nonfocal. - Labs CBC & Chem 7: 10/27/20 08:20 10/27/20 08:20 Labs: Abnormal Lab Results - Last 24 Hours (Table) 10/26/20 10/26/20 10/26/20 Range/Units 11:09 15:47 21:31 APTT (22.0-30.0) sec BUN (7-17) mg/dL Creatinine (0.52-1.04) mg/dL Glucose (74-99) mg/dL POC Glucose (mg/dL) 140 H 126 H 183 H (75-99) mg/dL 10/27/20 10/27/20 10/27/20 Range/Units 06:23 08:20 08:20 APTT 20.4 L (22.0-30.0) sec BUN 23 H (7-17) mg/dL Creatinine 1.10 H (0.52-1.04) mg/dL Glucose 239 H (74-99) mg/dL POC Glucose (mg/dL) 172 H (75-99) mg/dL Microbiology - Last 24 Hours (Table) 10/25/20 13:22 Nasal Screen MRSA/MSSA - Final Nasal Swab Assessment and Plan Assessment: Severe coronary artery disease, with anticipated bypass grafting on 10/28/2020. No evidence of lung disease at this time, with excellent preoperative spirometry. History of hypertension. History of diabetes mellitus. History of hyperlipidemia. Hypothyroidism. Lifelong nonsmoker. Plan: Plan dated 10/27/2020. The patient's doing well. She is prepared for surgery tomorrow. Her preoperative lung function were excellent. She is a lifelong nonsmoker. I again explained what our role and the whole process was. She is using her inc entive spirometer. She's getting to 1500 mL. No additional recommendations are made. We will attempt to get her extubated as quickly as possible. Time with Patient: Less than 30
--- NOTE | 2020-10-27 10:25 | P.PN ---
Subjective HISTORY OF PRESENTING ILLNESS This is a pleasant 75-year-old female past medical history significant for hypertension, dyslipidemia, diabetes mellitus and chronic neck pain. She follows in the office with Dr. Duran. She underwent cardiac catheterization with Dr. Duran revealing significant damping and ostial lesion of the left main 70%, LAD 30% lesion proximally and 70% mid, circumflex with an 80% ostial lesion and RCA with 70-80% ostial lesion. She is scheduled to undergo coronary artery bypass grafting on Saturday. She is seen and examined up ambulating in the room and hallways. She denies chest pain, shortness of breath, dizziness or palpitations. She woke up again this morning with pain in her left shoulder and arm that subsided shortly after waking up. Blood pressure 110/64 heart rate 54 afebrile maintaining oxygen saturation on room air. Laboratory data reviewed, CBC unremarkable, sodium 137, potassium 4.7, creatinine 1.1. Currently maintained on aspirin 81 mg daily, atenolol 25 mg daily and atorvastatin 40 mg daily. PHYSICAL EXAMINATION CONSTITUTIONAL: No apparent distress. HEENT: Head is normocephalic. Pupils are equal, round. Sclerae anicteric. Mucous membranes of the mouth are moist. No JVD. No carotid bruit. CHEST EXAMINATION: Lungs are clear to auscultation. No chest wall tenderness is noted on palpation or with deep breathing. HEART EXAMINATION: Regular rate and rhythm. S1, S2 heard. No murmurs, gallops or rub. EXTREMITIES: 2+ peripheral pulses, no lower extremity edema and no calf tenderness. ASSESSMENT Chest pain Triple-vessel coronary artery disease scheduled to undergo bypass grafting on Saturday Abnormal stress test Acute kidney injury Hyperkalemia, improved Diabetes mellitus Hypertension Dyslipidemia PLAN Continue aspirin, atenolol and atorvastatin as previously ordered. Follow renal function daily. Incentive spirometer use encouraged around the clock while awake. She will be NPO after midnight tonight for bypass grafting tomorrow morning with Dr. Mills. Nurse Practitioner note has been reviewed, I agree with a documented findings and plan of care. Patient was seen and examined. Objective - Vital Signs Vital signs: Vital Signs Temp 98.3 F 10/27/20 03:00 Pulse 54 L 10/27/20 03:00 Resp 16 10/27/20 03:00 BP 110/64 10/27/20 03:00 Pulse Ox 96 10/27/20 03:00 Intake & Output 10/26/20 10/27/20 10/27/20 18:59 06:59 18:59 Intake Total 300 Balance 300 Intake: Oral 300 Other: Voiding Method Toilet Toilet # Voids 2 1 - Labs CBC & Chem 7: 10/27/20 08:20 10/27/20 08:20 Labs: Abnormal Lab Results - Last 24 Hours (Table) 10/26/20 10/26/20 10/26/20 Range/Units 11:09 15:47 21:31 APTT (22.0-30.0) sec BUN (7-17) mg/dL Creatinine (0.52-1.04) mg/dL Glucose (74-99) mg/dL POC Glucose (mg/dL) 140 H 126 H 183 H (75-99) mg/dL 10/27/20 10/27/20 10/27/20 Range/Units 06:23 08:20 08:20 APTT 20.4 L (22.0-30.0) sec BUN 23 H (7-17) mg/dL Creatinine 1.10 H (0.52-1.04) mg/dL Glucose 239 H (74-99) mg/dL POC Glucose (mg/dL) 172 H (75-99) mg/dL Microbiology - Last 24 Hours (Table) 10/25/20 13:22 Nasal Screen MRSA/MSSA - Final Nasal Swab
[2020-10-27] MEDS: MUPIROCIN 2% OINT 22 GM TUBE NASAL SCH (10:40)
[2020-10-27 12:29] LABS: Glucose,Whole Blood 169 mg/dL (75-99)
--- NOTE | 2020-10-27 13:51 | P.PN ---
Subjective Progress Note Date: 10/27/20 This is 75-year-old female with a abnormal stress test back in August, reports shine worker recommended cardiac catheterization but patient was afraid to come into hospital for fear of contacting Covid. Developed left arm pain earlier this morning, accompanied by numbness in left upper chest pressure, proceeded to the ER. Denies nausea vomiting or diarrhea. Denies diaphoresis. Denies fever or chills. Denies lightheadedness, dizziness or focal deficits. EKG reported sinus rhythm, inferior infarct age undetermined, troponins negative 3 ,chest x- ray reported no acute cardiopulmonary process. Afebrile, maintaining O2 sats in the high 90s on room air .hematology unremarkable, INR 1, sodium 135, potassium 5.5, BUN 20, creatinine 0.98, glucose 196, magnesium 1.7. Elevated AST of 39. Evaluated by cardiology and patient is scheduled for cardiac catheterization in the a.m. Underwent cardiac catheterization this morning, reporting left main 70% stenosis, mid LAD 70% stenosis, circumflex 70-80% stenosis and RCA 70-80% stenosis. Cardiothoracic surgery consulted regarding CABG. Renal function mildly elevated 1.07, maintained on IV fluid hydration. Currently denies any chest pain, palpitations or shortness of breath. Telemetry sinus rhythm. Blood sugars controlled. 10/26/2020 ambulating, tolerating exertion well. No further chest pain reported. Denies palpitations or shortness of breath. Denies lightheadedness or dizziness or focal deficits. Scheduled for CABG on Saturday. Post cardiac cath, creatinine mildly trending up. Maintaining O2 sats in the 90s on room air. Afebrile. 10/27/2020 scheduled for CABG tomorrow. Creatinine trending down 1.1. Good diet intake with no nausea vomiting or diarrhea. Ambulating, tolerating exertion well. Maintaining O2 sats in the 90s on room air. Continues on statin, beta sobeida and aspirin. Denies chest pain, palpitations or shortness of breath. Incentive spirometer up to 1500. Telemetry sinus bradycardia, heart rate in the 50s. Objective - Vital Signs Vital signs: Vital Signs Temp 98 F 10/27/20 09:00 Pulse 59 L 10/27/20 09:00 Resp 18 10/27/20 09:00 BP 141/73 10/27/20 09:00 Pulse Ox 96 10/27/20 09:00 Intake & Output 10/26/20 10/27/20 10/27/20 18:59 06:59 18:59 Intake Total 300 Balance 300 Intake: Oral 300 Other: Voiding Method Toilet Toilet Toilet # Voids 2 1 - Exam PHYSICAL EXAM: VITAL SIGNS: [As above] GENERAL: Alert and oriented 3, ambulating with in room, no acute distress HEENT: Conjunctivae normal. eyes normal. NECK: No JVD. No thyroid enlargement. CARDIOVASCULAR: S1, S2 regular. No murmur RESPIRATION: Breath sounds diminished in the bases. No rhonchi, crackles or wheezing ABDOMEN: Soft, nontender . No guarding. no masses palpable. Positive Bowel sounds. LEGS: No edema. no swelling, no calf tenderness NERVOUS SYSTEM: Cranial N 2-12 grossly normal. Moves all 4 limbs. No focal deficits. Strength and sensation grossly intact.. Skin: Warm and dry, no rash - Labs CBC & Chem 7: 10/27/20 08:20 10/27/20 08:20 Labs: Abnormal Lab Results - Last 24 Hours (Table) 10/26/20 10/26/20 10/27/20 Range/Units 15:47 21:31 06:23 APTT (22.0-30.0) sec BUN (7-17) mg/dL Creatinine (0.52-1.04) mg/dL Glucose (74-99) mg/dL POC Glucose (mg/dL) 126 H 183 H 172 H (75-99) mg/dL 10/27/20 10/27/20 10/27/20 Range/Units 08:20 08:20 12:27 APTT 20.4 L (22.0-30.0) sec BUN 23 H (7-17) mg/dL Creatinine 1.10 H (0.52-1.04) mg/dL Glucose 239 H (74-99) mg/dL POC Glucose (mg/dL) 169 H (75-99) mg/dL Microbiology - Last 24 Hours (Table) 10/25/20 13:22 Nasal Screen MRSA/MSSA - Final Nasal Swab Assessment and Plan Assessment: Acute chest pain in a patient with prior abnormal stress test, Status post cardiac catheterization reporting multivessel CAD with left main disease. CABG pending. Unstable angina Acute renal failure post cardiac catheterization Hyperkalemia, resolved Diabetes mellitus, hemoglobin A1c 6.5 Hypertension Hyperlipidemia Hypothyroidism Obesity, BMI 31.2 Plan: Continue on current medication regime ,monitoring and symptomatic treatment. NPO at midnight,CABG tomorrow .Close monitoring of renal function, electrolytes with repeat labs ordered for a.m. Maintain aggressive pulmonary toileting with incentive spirometer reinforced. The impression and plan of care has been dictated as directed. : I performed a history and examination of this patient, discussed the same with the dictator. I agree with the dictator's note ,documented as a scribe. Any additional findings or plans will be noted.
[2020-10-27 16:55] LABS: Glucose,Whole Blood 159 mg/dL (75-99)
[2020-10-27] MEDS: INSULIN ASPART (NovoLOG) 100 UNIT/ML VIAL SQ SCH (17:20)
[2020-10-27 20:34] LABS: Glucose,Whole Blood 157 mg/dL (75-99)
[2020-10-28] MEDS: INSULIN ASPART (NovoLOG) 100 UNIT/ML VIAL SQ SCH ×2 (03:01→03:02)
[2020-10-28] MEDS ORDERED: TRANEXAMIC ACID 2,000 MG in SODIUM CHLORIDE 0.9% 80 ML IV ONE (05:00)
[2020-10-28] MEDS ORDERED: CHLORHEXIDINE GLUCONATE 15 ML CUP MUCOUS MEM ONE (05:00)
[2020-10-28] MEDS ORDERED: MANNITOL 25% 12.5 GM/50 ML VIAL IV ONE ×2 (05:00)
[2020-10-28] MEDS ORDERED: ASPIRIN 325 MG TAB PO ONE (05:00)
[2020-10-28] MEDS ORDERED: HEPARIN SODIUM 1,000 UN/ML (10ML VL) IV ONE (05:00)
[2020-10-28] MEDS ORDERED: ALBUMIN HUMAN 25% 50 ML in EMPTY BAG 1 BAG IVPB ONE (05:00)
[2020-10-28] MEDS ORDERED: PAPAVERINE 360 MG in SODIUM CHLORIDE 0.9% 90 ML IV ONE (05:00)
[2020-10-28] MEDS ORDERED: NITROGLYCERIN-D5W PMX 25 MG/250 ML BTL IV ONE (05:00)
[2020-10-28] MEDS ORDERED: CLEVIDIPINE BUTYRATE 25 MG in EMPTY BAG 1 BAG IV SCH ×2 (05:00→15:30)
[2020-10-28] MEDS ORDERED: MAGNESIUM SULFATE SYG 4.06 MEQ/ML SYRINGE IV ONE (05:00)
[2020-10-28] MEDS ORDERED: PROTAMINE SULFATE 250 MG in EMPTY BAG 1 BAG IV ONE (05:00)
[2020-10-28] MEDS ORDERED: LACTATED RINGERS 1,000 ML IV SCH (05:00)
[2020-10-28] MEDS ORDERED: ALBUMIN HUMAN 5% 500 ML in EMPTY BAG 1 BAG IVPB ONE ×6 (05:00)
[2020-10-28] MEDS ORDERED: CALCIUM CHLORIDE 100 MG/ML 10 ML SYRINGE IVP ONE (05:00)
[2020-10-28] MEDS ORDERED: NOREPINEPHRINE 4 MG in SODIUM CHLORIDE 0.9% 250 ML IV SCH (05:00)
[2020-10-28] MEDS ORDERED: HEPARIN SODIUM,PORCINE 5,000 UNIT in SODIUM CHLORIDE 0.9% 500 ML 500 ML IV ONE (05:00)
[2020-10-28] MEDS ORDERED: INSULIN REGULAR 100 UNIT in SODIUM CHLORIDE 0.9% 100 ML IV SCH (05:00)
[2020-10-28] MEDS ORDERED: DEXTROSE 5% IN WATER 1,000 ML with POTASSIUM CHLORIDE 110 MEQ, MAGNESIUM SULFATE 16 MEQ... IV SCH ×5 (05:00)
[2020-10-28] MEDS ORDERED: NITROGLYCERIN-D5W PMX 50 MG in DEXTROSE/WATER 1 250ML.BAG IV SCH ×2 (05:00→15:30)
[2020-10-28] MEDS ORDERED: DEXTROSE 5% IN WATER 1,000 ML with POTASSIUM CHLORIDE 25 MEQ, SODIUM CHLORIDE 4MEQ/ML V... IV SCH ×6 (05:00)
[2020-10-28] MEDS ORDERED: PROTAMINE SULFATE 10 MG/ML 25 ML VIAL IV ONE ×2 (05:00→07:36)
[2020-10-28] MEDS ORDERED: SODIUM BICARB 8.4% 50 ML SYR (1 MEQ/ML) IV ONE (05:00)
[2020-10-28] MEDS ORDERED: METOPROLOL TARTRATE 12.5 MG TAB PO ONE (05:00)
[2020-10-28] MEDS ORDERED: DILTIAZEM 125 MG in SODIUM CHLORIDE 0.9% 100 ML IV SCH (05:00)
[2020-10-28] MEDS ORDERED: PHENYLEPHRINE 40 MG in SODIUM CHLORIDE 0.9% 250 ML IV ONE (05:00)
[2020-10-28] MEDS ORDERED: ATORVASTATIN 10 MG TAB PO ONE (05:00)
[2020-10-28] MEDS ORDERED: PHENYLEPHRINE 10 MG/ML VIAL IV ONE (05:00)
[2020-10-28 06:27] LABS: Glucose,Whole Blood 172 mg/dL (75-99)
[2020-10-28] MEDS ORDERED: TRANEXAMIC ACID 1,000 MG/10 ML VIAL ONE (07:36)
[2020-10-28] MEDS ORDERED: SODIUM CHLORIDE 0.9% IRRIG 1,000 ML BTL IRRIGATION ONE (07:36)
[2020-10-28] MEDS ORDERED: NITROGLYCERIN-D5W PMX 50 MG/250 ML BOTTLE IV ONE (07:36)
[2020-10-28] MEDS ORDERED: MILRINONE-D5W PMX 20 MG/100 ML BAG IV ONE (07:36)
[2020-10-28] MEDS ORDERED: HEPARIN SODIUM,PORCINE 10,000 UNIT/ML 1 ML VIAL ONE (07:36)
[2020-10-28] MEDS ORDERED: SODIUM CHLORIDE 0.9% 250 ML BAG ONE (07:36)
[2020-10-28] MEDS ORDERED: ROCURONIUM 10 MG/ML (10 ML VIAL) IV ONE (07:36)
[2020-10-28] MEDS ORDERED: MAGNESIUM SULFATE 4 MEQ/ML 10ML VIAL ONE (07:36)
[2020-10-28] MEDS ORDERED: VECURONIUM 10 MG VIAL IV ONE (07:36)
[2020-10-28] MEDS ORDERED: POTASSIUM CHLORIDE OPEN HEART 20 MEQ/50 ML BAG IVPB ONE (07:36)
[2020-10-28] MEDS ORDERED: MIDAZOLAM 2 MG/2 ML VIAL ONE (07:36)
[2020-10-28] MEDS ORDERED: INSULIN REGULAR 100 UNIT/ML VIAL ONE (07:36)
[2020-10-28] MEDS ORDERED: ALBUMIN HUMAN 5% (25gm) 500 ML VIAL IVPB ONE (07:36)
[2020-10-28] MEDS ORDERED: PROPOFOL 10 MG/ML 20 ML VIAL IV ONE (07:36)
[2020-10-28] MEDS ORDERED: CALCIUM CHLORIDE 100 MG/ML 10 ML SYRINGE ONE (07:36)
[2020-10-28] MEDS ORDERED: fentaNYL (PF) 50 MCG/ML 50 ML VIAL ONE (07:36)
[2020-10-28] MEDS ORDERED: ELECTROLYTE-R (PH 7.4) 1,000 ML IV.SOLN IV ONE (07:36)
[2020-10-28] MEDS ORDERED: LIDOCAINE 2% SYG (PF) 100 MG/5 ML ONE (07:36)
[2020-10-28] MEDS ORDERED: fentaNYL (PF) 50 MCG/ML 2 ML AMP ONE (07:36)
--- NOTE | 2020-10-28 08:52 | P.ANPRN ---
Procedure Note - Anesthesia - Invasive Line Right Arterial Line Time Out Performed: Yes Date of Procedure: 10/28/20 Time of Procedure: 07:15 Location of Patient: Phase I Preparation: Sterile Prep, Sterile Dressing Arterial Line Location: Radial Ultrasound Used: No Image Stored and Saved: Yes Narrative: Right radial arterial line placed by [employer] student under sterile conditions. Seldinger technique with 20 g Arrow catheter. Right Central Line Time Out Performed: Yes Date of Procedure: 10/28/20 Time of Procedure: 07:25 Location of Patient: Phase I Preparation: Sterile Prep, Sterile Dressing Ultrasound Used: Yes Purpose - Visualization and Identification of Vasculature: Yes Needle Guage: 18 Image Stored and Saved: Yes Narrative: Central line placement per sterile protocol utilized. Right neck prepped and draped. 1% lidocaine 5 ml subq. Under u/s guidance, 18 g needle advanced into R IJ. Wire advanced to 20 cm and visualized on u/s. Small umair in the skin was made and 9F cordis advanced over the wire. Line sutured in place and sterile antimicrobial dressing applied. Right [place] Claudia Date of Procedure: 10/28/20 Time of Procedure: 07:35 Location of Patient: Phase I Preparation: Sterile Prep, Sterile Dressing Ultrasound Used: No Narrative: [place] had all ports flushed and balloon tested. Advanced to 20 cm and balloon was inflated. Advanced until RV and then PA waveforms obtained. Line secured at 39 cm and balloon was deflated. Pt tolerated well.
--- NOTE | 2020-10-28 08:53 | P.ANPRN ---
Procedure Note - Anesthesia - GORDON Intraop Pre Bypass GORDON Intraop - Anesthesia Indication: CABG Date of Procedure: 10/28/20 Pre-operative Diagnosis: CAD Post-operative Diagnosis: same Surgeon: Brett Mills Left Ventricle: Normal EF. No RWMA Ejection Fraction: Normal Regional Wall Motion Abnormalities: None Left Ventricle Hypertrophy: No R. Ventricle Function: Normal Anatomy: Trileaflet Aortic Stenosis: None Aortic Regurgitation: None Mitral Stenosis: None Mitral Regurgitation: Trace Tricuspid Stenosis: None Tricuspid Regurgitation: None Pulmonic Stenosis: None Pulmonic Regurgitation: None R. Atrial Dilation: No R. Atrial PFO: No L. Atrial Dilation: No Aortic Dissection: No Aortic Calcification: None Plural Effusion: None
[2020-10-28] MEDS: ceFAZolin 1,000 MG in SODIUM CHLORIDE 0.9% IRRIGATIO 1,000 ML IRRIGATION ONE ×2 (09:36→14:06)
--- NOTE | 2020-10-28 12:41 | P.PN ---
Progress Note - Text Progress Note Date: 10/28/20 10/28/20 Patient in OR, unable to see. The impression and plan of care has been dictated as directed. : I performed a history and examination of this patient, discussed the same with the dictator. I agree with the dictator's note ,documented as a scribe. Any additional findings or plans will be noted.
--- NOTE | 2020-10-28 14:57 | P.ANPRN ---
Procedure Note - Anesthesia - GORDON Intraop Post Bypass GORDON Intraop Post Bypass Procedure Performed: CABG Ejection Fraction: Normal Regional Wall Motion Abnormalities: None R. Ventricle Function: Normal Aortic Valve: Unchanged Mitral Valve: Unchanged Tricuspid: Trace TR Aortic Dissection: No
[2020-10-28] MEDS ORDERED: Potassium Replacement Protocol 1 EACH MISC MISCELLANE PRN (15:08)
[2020-10-28] MEDS ORDERED: CALCIUM GLUCONATE 2 GM in SODIUM CHLORIDE 0.9% 100 ML IVPB PRN (15:08)
[2020-10-28] MEDS ORDERED: DEXTROSE 5% IN WATER 100 ML with AMIODARONE 150 MG IV PRN (15:08)
[2020-10-28] MEDS ORDERED: Phosphorus Replacement Protoco 1 EACH MISC MISCELLANE PRN (15:08)
[2020-10-28] MEDS ORDERED: BENZOCAINE/MENTHOL LOZENG 1 EACH LOZENGE MUCOUS MEM PRN (15:08)
[2020-10-28] MEDS ORDERED: IPRATROPIUM-ALBUTEROL 3 ML NEB INHALATION PRN (15:08)
[2020-10-28] MEDS ORDERED: Magnesium Replacement Protocol 1 EACH MISC MISCELLANE PRN (15:08)
[2020-10-28] MEDS ORDERED: AMIODARONE 360 MG in DEXTROSE 5% IN WATER 200 ML IV PRN ×2 (15:08)
[2020-10-28] MEDS ORDERED: AMIODARONE 450 MG in DEXTROSE 5% IN WATER 250 ML IV PRN ×2 (15:08)
[2020-10-28] MEDS ORDERED: METOCLOPRAMIDE 5 MG/ML 2 ML VIAL IVP PRN (15:08)
[2020-10-28] MEDS ORDERED: ONDANSETRON 4 MG/2 ML VIAL IVP PRN (15:08)
--- NOTE | 2020-10-28 15:23 | XR ---
EXAMINATION TYPE: XR chest 1V portable DATE OF EXAM: 10/28/2020 Comparison: 10/24/2020 Clinical History: 75-year-old female POSSIBLE FOREIGN BODY NEEDLE Findings: ET tube tip is low at 1 cm from the nevin. Pull back 1.5 cm in reassessment follow-up. Median sterno bel wires with postoperative clips in the mediastinum. Right IJ [place] catheter tip in the proxim al right main pulmonary artery. Mediastinal drains are present. Epicardial pacer leads. Left chest tu be. Diffuse interstitial density increased from prior. Possible trace left apical pneumothorax measur ing 1.1 cm. Facet gallstones in the right upper quadrant. There are some surgical clips projecting at the left pa ramedian upper abdomen that should be correlated clinically. No retained needle is identified. Impression: 1. Postsurgical changes. ET tube tip is low at 1 cm from the nevin. Pull back 1.5 cm and reassess at follow-up. 2. Left-sided chest tube in place. Trace left apical pneumothorax measuring 1.1 cm. 3. Mild pulmonary vascular congestion, new from 10/24/2020. 4. Some surgical clips left paramedian upper abdomen. Epicardial pacer leads. Facet gallstones. No re tained needle is identified.
[2020-10-28] MEDS: IPRATROPIUM-ALBUTEROL 3 ML NEB INHALATION SCH ×2 (15:35→21:27)
[2020-10-28] MEDS: LACTATED RINGERS 1,000 ML IV SCH (15:35)
[2020-10-28 15:37] LABS: Glucose,Whole Blood 166 mg/dL (75-99)
[2020-10-28 15:43] LABS: Basophils # (A) 0.1 k/uL (0-0.2); Basophils % (A) 0 %; Eosinophils % (A) 0 %; HCT 27.6 % (34.0-46.0); Lymphocytes # (A) 2.3 k/uL (1.0-4.8); Lymphocytes % (A) 19 %; MCH 31.9 pg (25.0-35.0); MCHC 35.2 g/dL (31.0-37.0); MCV 90.6 fL (80.0-100.0); Mean Platelet Volume 9.4; Monocytes # (A) 0.8 k/uL (0-1.0); Monocytes % (A) 6 %; Neutrophils % (A) 74 %; RBC 3.04 m/uL (3.80-5.40); RDW 14.1 % (11.5-15.5); WBC 12.3 k/uL (3.8-10.6)
[2020-10-28 15:53] LABS: ABG Base Excess -3.1 mmol/L; ABG HCO3 23 mmol/L (21-25); ABG PCO2 47 mmHg (35-45); ABG PO2 397 mmHg (83-108); ABG TCO2 25 mmol/L (19-24)
[2020-10-28 15:54] LABS: Ionized Calcium 4.9 mg/dL (4.5-5.3)
[2020-10-28 15:58] LABS: INR 1.3 (<1.2); Partial Thromboplastin Time 33.4 sec (22.0-30.0); Prothrombin Time 13.2 sec (9.0-12.0)
[2020-10-28 16:00] LABS: Sodium 138 mmol/L (137-145)
[2020-10-28 16:01] LABS: HGB 9.7 gm/dL (11.4-16.0); Platelet Count 106 k/uL (150-450)
[2020-10-28 16:02] LABS: ALT 15 U/L (4-34); AST 68 U/L (14-36); African American GFR (CKD) >90 (>60 ml/min/1.73 sqM); Albumin 2.4 g/dL (3.5-5.0); Alkaline Phosphatase <20 U/L (38-126); Anion Gap 3 mmol/L; Blood Urea Nitrogen 17 mg/dL (7-17); Calcium 7.7 mg/dL (8.4-10.2); Carbon Dioxide 24 mmol/L (22-30); Chloride 111 mmol/L (98-107); Glucose 149 mg/dL (74-99); Magnesium 2.4 mg/dL (1.6-2.3); Non-African American GFR(CKD) 81 (>60 ml/min/1.73 sqM); Potassium 4.7 mmol/L (3.5-5.1); Total Bilirubin 1.3 mg/dL (0.2-1.3)
--- NOTE | 2020-10-28 16:15 | P.PN ---
Subjective Progress Note Date: 10/28/20 Principal diagnosis: Coronary artery disease, status post coronary artery bypass grafting 4 75-year-old female who presented to the emergency department on October 24 at 8:00 in the morning. She apparently had chest tightness and pain. It began at 3 AM in the morning and occurred for about 5 hours before she arrived to the emergency department. The pain apparently was also noted in the left arm, and she had chest tightness as well as pain. She had no nausea, vomiting, or diaphoresis. She apparently did have an abnormal stress test in the fall, and it was recommended at that time that she have a cardiac catheterization. Her initial plan was to go down to [place]. She was given a prescription and the time down there and then come back in January and have her heart catheterization at that time. Apparently family members talked her out of it and she decided to have a heart catheterization done right away. The heart catheterization revealed a 70% occlusion in the left main, 70% occlusion in the left anterior descending coronary artery, 70% to 80% occlusion and the circumflex coronary artery and a 70% occlusion and the right coronary artery. Bypass grafting was recommended by cardiology. She apparently is going to have surgery on Saturday. We were asked to see her in preop evaluation. She does not have any history of any lung issues. She is a lifelong nonsmoker. She denies any emphysema, chronic bronchitis, asthma, or COPD. Her lung function were quite good. Her FEV1 percent was 102%. She does carry with her diagnosis of hypertension, diabetes, hyperlipidemia, and hypothyroidism. Progress note dated 10/27/2020 75-year-old female with anticipated bypass grafting tomorrow. The surgery will be done by Dr. Mills. Currently, the patient seemed be doing relatively well. The patient is not receiving any supplemental oxygen. The patient is currently not receiving any IV fluids. The patient has had no further chest pain. She is resting comfortably. In fact we went to see her today, she was walking the hallway. Her catheterization revealed a 70% occlusion of the left main coronary artery, a 70% occlusion in the left anterior descending coronary artery, 70-80% occlusion in the circumflex coronary artery and a 70% occlusion in the right coronary artery. Her preoperative lung function were excellent. She is a lifelong nonsmoker. She denies any history of COPD, emphysema, chronic bronchitis, asthma, or any lung condition. She should do well. The patient is seen today 10/28/2020 in the immediate postoperative setting in the ICU. She is now status post coronary artery bypass grafting 4 utilizing the MATRINEZ to the LAD, SVGs to the OM1, OM 3, PDA. Postoperative day #0. She is currently intubated on mechanical ventilator with assist-control mode at a rate of 12, tidal volume 350, FiO2 100% and a PEEP of 10. Arterial blood gases reveal a pO2 of 397, pCO2 47, pH 7.30. She is currently sedated on propofol at 20 mcg/kg/m, lactated Ringer's at 50 ML's per hour. She is requiring norepinephrine at 0.02 mcg/kg/m, nitroglycerin at 5 mcg/m, milrinone at 0.3 mcg/kg/m. She is currently in normal sinus rhythm. Cardiac output 2.3. Cardiac index 1.3. PA pressures 36/25. There is a left pleural chest tube in place, mediastinal chest tubes 2. She is status post 4 units of packed red blood cells. One unit of platelets pending. Current hemoglobin 9.7. Platelet count 106. White count 12.3. INR 1.3. Sodium 138. Potassium 4.7. Creatinine 0.74. AST 60. ALT 15. Albumin 2.4. Initiated on bronchodilators. Chest x- ray reveals trace left apical pneumothorax measuring 1.1 cm. Mild pulmonary vascular congestion. Epicardial pacer leads in place. Objective - Vital Signs Vital signs: Vital Signs Temp 97.8 F 10/28/20 06:17 Pulse 106 H 10/28/20 15:44 Resp 16 10/28/20 06:17 BP 154/73 10/28/20 06:17 Pulse Ox 98 10/28/20 06:17 Intake & Output 10/27/20 10/28/20 10/28/20 18:59 06:59 18:59 Intake Total 1343 Output Total 2150 Balance -807 Weight 75.4 kg Intake: IV 103 Blood Product 1240 Rc As-1 Unit 310 [id number] Rc As-1 Unit 310 [id number] Rc As-1 Unit 310 [id number] Rc As-1 Unit 310 [id number] Output: Urine 650 Estimated Blood Loss 1500 Other: Voiding Method Toilet Toilet # Voids 6 2 - Exam GENERAL EXAM: Intubated, sedated 75-year-old female patient, on the mechanical ventilator FiO2 100%,, comfortable in no apparent distress. HEAD: Normocephalic. EYES: Sluggish reaction of pupils, equal size. NOSE: Clear with pink turbinates. THROAT: Oral endotracheal and gastric tube secured in place No erythema or exudates. NECK: No masses, no JVD. CHEST: Sternal dressing dry and intact, Heart hugger in place. Left pleural and mediastinal chest tubes in place. LUNGS: Equal air entry with no crackles, wheeze, rhonchi or dullness. CVS: S1 and S2 normal with no audible murmur, regular rhythm. ABDOMEN: No hepatosplenomegaly, bowel sounds, no guarding or rigidity. SPINE: No scoliosis or deformity SKIN: No rashes CENTRAL NERVOUS SYSTEM: Sedated. No focal deficits, tone is normal in all 4 extremities. EXTREMITIES: There is trace peripheral edema. No clubbing, no cyanosis. Peripheral pulses are intact. - Labs CBC & Chem 7: 10/28/20 15:39 10/28/20 15:39 Labs: Abnormal Lab Results - Last 24 Hours (Table) 10/27/20 10/27/20 10/27/20 Range/Units 08:20 16:52 20:31 WBC (3.8-10.6) k/uL RBC (3.80-5.40) m/uL Hgb (11.4-16.0) gm/dL Hct (34.0-46.0) % Plt Count (150-450) k/uL Neutrophils # (1.3-7.7) k/uL PT (9.0-12.0) sec INR (<1.2) APTT (22.0-30.0) sec ABG pH (7.35-7.45) ABG pCO2 (35-45) mmHg ABG pO2 (83-108) mmHg ABG Total CO2 (19-24) mmol/L ABG O2 Saturation (94-97) % POC Glucose (mg/dL) 159 H 157 H (75-99) mg/dL Crossmatch See Detail 10/28/20 10/28/20 10/28/20 Range/Units 06:25 15:36 15:39 WBC 12.3 H (3.8-10.6) k/uL RBC 3.04 L (3.80-5.40) m/uL Hgb 9.7 L D (11.4-16.0) gm/dL Hct 27.6 L (34.0-46.0) % Plt Count 106 L D (150-450) k/uL Neutrophils # 9.0 H (1.3-7.7) k/uL PT (9.0-12.0) sec INR (<1.2) APTT (22.0-30.0) sec ABG pH (7.35-7.45) ABG pCO2 (35-45) mmHg ABG pO2 (83-108) mmHg ABG Total CO2 (19-24) mmol/L ABG O2 Saturation (94-97) % POC Glucose (mg/dL) 172 H 166 H (75-99) mg/dL Crossmatch 10/28/20 10/28/20 Range/Units 15:39 15:47 WBC (3.8-10.6) k/uL RBC (3.80-5.40) m/uL Hgb (11.4-16.0) gm/dL Hct (34.0-46.0) % Plt Count (150-450) k/uL Neutrophils # (1.3-7.7) k/uL PT 13.2 H (9.0-12.0) sec INR 1.3 H (<1.2) APTT 33.4 H (22.0-30.0) sec ABG pH 7.30 L (7.35-7.45) ABG pCO2 47 H (35-45) mmHg ABG pO2 397 H (83-108) mmHg ABG Total CO2 25 H (19-24) mmol/L ABG O2 Saturation 100.0 H (94-97) % POC Glucose (mg/dL) (75-99) mg/dL Crossmatch Assessment and Plan Assessment: 1 Coronary artery disease status post coronary artery bypass grafting 4 utilizing the MARTINEZ to the LAD, saphenous vein grafts to the OM1, OM 3, NECK BAND MAKER. Postoperative day #0 2 Anemia as expected outcome of surgery, status post 4 units packed red blood cells 3 History of hypertension 4 Hyperlipidemia 5 Diabetes mellitus 6 Hypothyroidism 7 Lifelong nonsmoker Plan: The patient was seen and evaluated by Dr. Richards Chest x-ray, ABGs, labs reviewed Continue with the current treatment plan Titrate down the FiO2 and a PEEP as tolerated Plan for extubation within 6 hours per protocol Continue close hemodynamic monitoring We will continue to follow and make further recommendations based on her clinical status Critical care time 38 minutes I, the cosigning physician, performed a history & physical examination of the patient. Lungs sounds are clear. Maintaining good O2 saturations in the 90s on 100% FiO2 per mechanical ventilator. I discussed the assessment and plan of care with my nurse practitioner, Bharti Watson. I attest to the above note as dictated by her.
[2020-10-28] MEDS: INSULIN REGULAR 100 UNIT in SODIUM CHLORIDE 0.9% 100 ML IV SCH (16:24)
[2020-10-28 16:25] LABS: Glucose,Whole Blood 195 mg/dL (75-99)
[2020-10-28] MEDS: MILRINONE-D5W PMX 20 MG in DEXTROSE/WATER 1 100ML.BAG IV SCH ×2 (16:33→23:11)
[2020-10-28] MEDS: ALBUMIN HUMAN 5% 250 ML in EMPTY BAG 1 BAG IVPB PRN ×3 (16:45→20:15)
[2020-10-28] MEDS: ACETAMINOPHEN IV (For NPO) 1,000 MG in EMPTY BAG 1 BAG IVPB SCH ×2 (17:02→23:03)
[2020-10-28 17:11] LABS: Glucose,Whole Blood 204 mg/dL (75-99)
[2020-10-28 17:15] LABS: ABG Base Excess -4.3 mmol/L; ABG HCO3 22 mmol/L (21-25); ABG Oxygen Saturation 99.2 % (94-97); ABG PCO2 42 mmHg (35-45); ABG PH 7.32 (7.35-7.45); ABG PO2 113 mmHg (83-108); ABG TCO2 23 mmol/L (19-24)
[2020-10-28 18:04] LABS: Glucose,Whole Blood 209 mg/dL (75-99)
--- NOTE | 2020-10-28 18:05 | OP ---
OPERATIVE REPORT DATE OF SURGERY: 10/28/2020 PREOPERATIVE DIAGNOSIS: Coronary artery disease. POSTOPERATIVE DIAGNOSIS: Coronary artery disease. PROCEDURE: 1. Coronary artery bypass grafting x 4 vessels (left internal mammary artery to left anterior descending artery, saphenous vein graft to obtuse marginal artery 1, saphenous vein graft to obtuse marginal artery 3, saphenous vein graft to posterior descending artery). 2. Endoscopic harvest of bilateral greater saphenous veins. 3. Epiaortic ultrasound. 4. Transesophageal echocardiogram. 5. Ligation of left atrial appendage using 35 mm AtriClip. SURGEON: Brett Mills M.D. ASSISTANTS: 1. LEEANN Lemus. 2. Leonard Prather NP. ANESTHESIA: General. SPECIMENS: None. COMPLICATIONS: None. INDICATION: The patient is a 75-year-old female with a past medical history significant for diabetes mellitus, hyperlipidemia, hypertension and obesity who was initially seen in August 2020 with an abnormal stress test. Cardiac catheterization was recommended. However, the patient never followed up. She presented to the emergency department earlier this week with left upper extremity pain. Cardiac catheterization revealed multivessel coronary artery disease, including a tight left main coronary artery lesion. Coronary artery bypass was recommended. The risks, benefits and alternatives of the procedure were discussed with the patient. All of her questions were answered. Consent was obtained. FINDINGS: The left internal mammary artery was a good conduit with brisk flow. The saphenous vein was an adequate conduit. The LAD was diffusely diseased and small in diameter. The OM1 measured 1.3 mm and contained diffuse disease. The OM3 was a good target and measured 1.5 mm. The PDA measured 1.3 mm. PROCEDURE IN DETAIL: The patient was taken to the operating room and placed supine on the operating table. After the induction of general anesthesia, she was prepped and draped in the usual sterile fashion. Preoperative transesophageal echocardiogram confirmed an ejection fraction of about 55% with no significant valvular pathology. A median sternotomy was performed. The left internal mammary artery was harvested in the standard fashion, taking care to clip all branches. Intravenous heparin was administered. The vessel was transected distally, revealing brisk flow. Simultaneously, greater saphenous vein was harvested from the right lower extremity using endoscopic technique. All branches were tied. The vein below the knee appeared to be quite small and not usable. Additional vein was harvested in a similar fashion from the left thigh. After completion of this harvest, the vein appeared to be adequate. A pericardial cradle was created. The ascending aorta was palpated. There was no significant calcific plaque noted. Epiaortic ultrasound was then performed on the ascending aorta. Again no calcific plaque or atheromatous disease was identified. An arterial cannula was placed in the distal ascending aorta. A venous cannula was placed through the right atrial appendage and directed into the IVC. Both antegrade and retrograde catheters were placed as well. The patient was then placed on cardiopulmonary bypass with good decompression of the heart. The aortic cross- clamp was applied. Cold-blood potassium cardioplegia was delivered in both antegrade and retrograde fashion to achieve arrest of the heart. Of note, cardioplegia was delivered every 15 to 20 minutes while the patient remained under cross-clamp. I began by identifying the left atrial appendage. A 35 mm AtriClip was placed across its base to ensure ligation. Next the lateral wall was inspected. The OM branches were identified. The distal OM branch appeared to be the largest of the three. A small arteriotomy was created. This vessel accepted a 1.5 mm probe. Using saphenous vein in reverse fashion, an end-to side anastomosis was created. This was performed using running 7-0 Prolene suture. The graft was hemostatic and had great flow. This graft was tunneled behind the IVC and brought up along the right side of the ascending aorta. Next, the first obtuse marginal artery was dissected free. A small arteriotomy was created. This vessel accepted a 1 mm probe. Using saphenous vein in reverse fashion, an end-to-side anastomosis was created. This was performed using running 7-0 Prolene suture. The graft was hemostatic and had good flow. Next, the inferior wall was inspected. A branch coming off the right coronary artery was identified supplying this inferior wall. It was dissected free. A small arteriotomy was created. It accepted a 1.0 mm probe. Using saphenous vein in reverse fashion, an end-to-side anastomosis was created. This was performed using running 7-0 Prolene suture. The graft was hemostatic and had adequate flow. Next, attention was turned to the LAD. It contained diffuse disease. A soft spot amenable for bypass was noted in its mid portion. A small arteriotomy was created. This vessel accepted a 1.0 mm probe. Using the left internal mammary artery, an end-to-side anastomosis was created. This was performed using running 8-0 Prolene suture. The graft was hemostatic. The mammary pedicle was then tacked down to the anterior surface of the heart. Attention was then turned to the proximal anastomoses. These were all performed in end- to-side fashion using running 6-0 Prolene sutures. Of note, the vein graft to the OM3 was brought around the right side of the aorta and attached there. One liter of warm blood was delivered in retrograde fashion. Both lidocaine and magnesium were administered as well. The aortic cross-clamp was removed. Vein grafts were de-aired in the standard fashion. Distal anastomoses were inspected and appeared to be hemostatic. Temporary atrial and ventricular pacing wires were placed and brought through the skin. The patient was then weaned off cardiopulmonary bypass. He without any difficulty. Follow-up transesophageal echocardiogram confirmed normal ejection fraction and no valvular pathology. Protamine was administered. There were no adverse reactions. The remaining cannulas were then removed. The mediastinum was copiously irrigated with warm saline solution. Again all surgical sites were inspected and appeared to be hemostatic. Soft tissues were approximated over the ascending aorta as well as over the apex of the heart. Straight 32-[place] chest tubes were placed in the left pleural space as well as the mediastinum. These were all secured to the skin using sutures. Of note, both lower extremites had significant oozing throughout the case from the vein harvests. MILADIS drain was placed during closure. The sternum was then reapproximated using the [place] cable system. The cables were placed in a [id number] fashion. At the completion of the closure, the sternum was well aligned. The remainder of the wound was closed in layers. A sterile dressing was applied. The patient appeared to tolerated the procedure well. There were no immediate complications. She returned to the ICU in critical but stable condition. MMODL / IJN: [id number] / CHARLEY
[2020-10-28 19:08] LABS: Glucose,Whole Blood 218 mg/dL (75-99)
[2020-10-28 19:09] LABS: Basophils # (A) 0.1 k/uL (0-0.2); Basophils % (A) 1 %; Eosinophils % (A) 0 %; HCT 21.2 % (34.0-46.0); Lymphocytes # (A) 1.9 k/uL (1.0-4.8); Lymphocytes % (A) 15 %; MCH 30.9 pg (25.0-35.0); MCHC 34.3 g/dL (31.0-37.0); MCV 90.2 fL (80.0-100.0); Mean Platelet Volume 9.5; Monocytes # (A) 0.7 k/uL (0-1.0); Monocytes % (A) 5 %; Neutrophils # (A) 10.1 k/uL (1.3-7.7); Neutrophils % (A) 79 %; Platelet Count 112 k/uL (150-450); RBC 2.35 m/uL (3.80-5.40); RDW 14.3 % (11.5-15.5); WBC 12.8 k/uL (3.8-10.6)
[2020-10-28 19:10] LABS: HGB 7.3 gm/dL (11.4-16.0)
[2020-10-28 20:02] LABS: Glucose,Whole Blood 223 mg/dL (75-99)
[2020-10-28 20:54] LABS: Glucose,Whole Blood 217 mg/dL (75-99)
[2020-10-28 21:03] LABS: ABG Base Excess -5.4 mmol/L; ABG HCO3 21 mmol/L (21-25); ABG Oxygen Saturation 99.1 % (94-97); ABG PCO2 38 mmHg (35-45); ABG PH 7.34 (7.35-7.45); ABG PO2 128 mmHg (83-108); ABG TCO2 22 mmol/L (19-24)
[2020-10-28 21:08] LABS: Basophils % (A) 0 %; Eosinophils % (A) 0 %; HCT 20.5 % (34.0-46.0); HGB 6.9 gm/dL (11.4-16.0); Lymphocytes # (A) 1.1 k/uL (1.0-4.8); Lymphocytes % (A) 11 %; MCH 31.2 pg (25.0-35.0); MCHC 33.7 g/dL (31.0-37.0); MCV 92.6 fL (80.0-100.0); Mean Platelet Volume 10.4; Monocytes # (A) 0.5 k/uL (0-1.0); Monocytes % (A) 5 %; Neutrophils # (A) 8.5 k/uL (1.3-7.7); Neutrophils % (A) 84 %; RBC 2.22 m/uL (3.80-5.40); RDW 14.8 % (11.5-15.5); WBC 10.2 k/uL (3.8-10.6)
[2020-10-28 21:11] LABS: Platelet Count 93 k/uL (150-450)
[2020-10-28 22:06] LABS: Glucose,Whole Blood 197 mg/dL (75-99)
[2020-10-28 22:59] LABS: Glucose,Whole Blood 196 mg/dL (75-99)
[2020-10-28 23:57] LABS: Glucose,Whole Blood 178 mg/dL (75-99)
[2020-10-29] MEDS: HEPARIN SODIUM,PORCINE 5,000 UNIT/ML 1 ML VIAL SQ SCH ×4 (00:14→23:27)
[2020-10-29 00:58] LABS: Glucose,Whole Blood 158 mg/dL (75-99)
[2020-10-29 02:01] LABS: Glucose,Whole Blood 143 mg/dL (75-99)
[2020-10-29] MEDS ORDERED: HYDROcodone/APAP 5-325MG 1 EACH TAB PO PRN (02:55)
[2020-10-29 03:03] LABS: Glucose,Whole Blood 132 mg/dL (75-99)
[2020-10-29] MEDS: INSULIN REGULAR 100 UNIT in SODIUM CHLORIDE 0.9% 100 ML IV SCH ×2 (03:07→20:51)
[2020-10-29 03:54] LABS: Glucose,Whole Blood 116 mg/dL (75-99)
[2020-10-29 04:00] LABS: Basophils % (A) 1 %; Eosinophils % (A) 0 %; Lymphocytes # (A) 1.3 k/uL (1.0-4.8); Lymphocytes % (A) 17 %; MCH 31.5 pg (25.0-35.0); MCHC 35.4 g/dL (31.0-37.0); MCV 89.1 fL (80.0-100.0); Monocytes # (A) 0.4 k/uL (0-1.0); Monocytes % (A) 5 %; Neutrophils # (A) 5.8 k/uL (1.3-7.7); Neutrophils % (A) 76 %; Platelet Count 83 k/uL (150-450); RBC 1.97 m/uL (3.80-5.40); RDW 14.4 % (11.5-15.5); WBC 7.6 k/uL (3.8-10.6)
[2020-10-29 04:05] LABS: HCT 17.5 % (34.0-46.0); HGB 6.2 gm/dL (11.4-16.0)
[2020-10-29 04:55] LABS: Ionized Calcium 4.9 mg/dL (4.5-5.3)
[2020-10-29 04:55] LABS: Glucose,Whole Blood 106 mg/dL (75-99)
[2020-10-29 05:03] LABS: Albumin 2.7 g/dL (3.5-5.0); Calcium 7.9 mg/dL (8.4-10.2); Magnesium 1.9 mg/dL (1.6-2.3); Total Bilirubin 0.5 mg/dL (0.2-1.3); Total Protein 4.3 g/dL (6.3-8.2)
[2020-10-29 05:31] LABS: Potassium 3.9 mmol/L (3.5-5.1)
[2020-10-29 06:11] LABS: Glucose,Whole Blood 146 mg/dL (75-99)
[2020-10-29] MEDS: LEVOTHYROXINE 112 MCG TAB PO SCH (06:56)
[2020-10-29] MEDS: IPRATROPIUM-ALBUTEROL 3 ML NEB INHALATION SCH ×4 (07:03→20:14)
[2020-10-29 07:04] LABS: Glucose,Whole Blood 162 mg/dL (75-99)
[2020-10-29] MEDS: POTASSIUM CHLORIDE 10 MEQ in WATER FOR INJECTION 1 100ML.BAG IVPB SCH ×2 (07:12→09:18)
[2020-10-29] MEDS: MAGNESIUM SULFATE-D5W PMX 1 GM in DEXTROSE/WATER 1 100ML.BAG IVPB SCH ×2 (07:14→08:58)
--- NOTE | 2020-10-29 07:35 | P.PN ---
Subjective Progress Note Date: 10/29/20 Principal diagnosis: Symptomatic coronary artery disease with left main disease, unstable angina. 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 Endoscopic harvesting of bilateral greater saphenous veins. Epi-aortic ultrasound and intraoperative transesophageal echocardiogram. Ligation of the left atrial appendage using a 35 mm AtriClip Postoperative acute blood loss anemia and thrombocytopenia, expected given hemodilution and cardiopulmonary bypass pump The patient is currently sitting up in the recliner in the intensive care unit in no acute distress. She was successfully extubated last night at 21:07. States pain is well-controlled and has asked for no pain medication. Denies shortness of breath. Remains in sinus rhythm to sinus tach with heart rate in the high 90s to low 100s. Hemodynamically stable on low dose Primacor. Hemo globin 6.2 this morning, 1 unit packed red cells transfused. Right internal jugular [place]/Cordis, right radial arterial line, mediastinal and left pleural chest tubes all remain. The patient is without any new complaints. Objective - Vital Signs Vital signs: Vital Signs Temp 98.1 F 10/29/20 06:56 Pulse 104 H 10/29/20 07:14 Resp 22 10/29/20 07:00 BP 109/56 10/29/20 07:00 Pulse Ox 99 10/29/20 07:00 Intake & Output 10/28/20 10/29/20 10/29/20 18:59 06:59 18:59 Intake Total 2267.196 2606.487 8.181 Output Total 2450 1122 Balance -472.401 0757.487 8.181 Weight 82.1 kg Intake: IV 980 1287 ACETAMINOPHEN IV (For NPO 100 100 ) 1,000 mg In Empty Bag 1 bag @ 400 mls/hr IVPB Q6HR [facility] Rx#:[id number] Albumin Human 5% 250 ml 500 250 In Empty Bag 1 bag @ 250 mls/hr IVPB Q1HR PRN Rx#: [id number] CO/CI 70 Lactated Ringers 1,000 ml 150 650 @ 50 mls/hr IV .Q20H [facility] Rx#:[id number] PRESSURE BAGS 27 117 ceFAZolin 2 gm In Sodium 100 100 Chloride 0.9% 50 ml @ 100 mls/hr IVPB Q8HR [facility] Rx# :[id number] Intake, IV Titration 47.196 199.487 8.181 Amount Clevidipine Butyrate 25 1.733 mg In Empty Bag 1 bag @ 1 MG/HR 2 mls/hr IV .Q24H [facility] Rx#:[id number] Insulin Regular 100 unit 7.878 102.675 8.181 In Sodium Chloride 0.9% 100 ml @ Per Protocol IV .Q0M [facility] Rx#:[id number] Milrinone-D5w Pmx 20 mg 95.079 In Dextrose/Water 1 100ml .bag @ Per Protocol IV . Q0M [facility] Rx#:[id number] Norepinephrine 4 mg In 18.96 Sodium Chloride 0.9% 250 ml @ Titrate IV .Q0M [facility] Rx#:[id number] propofoL 1,000 mg In 20.358 Empty Bag 1 bag @ Titrate IV .Q0M [facility] Rx#: [id number] Oral 500 Blood Product 1240 620 Rc As-1 Unit 310 [id number] Rc As-1 Unit 310 [id number] Rc As-1 Unit 310 [id number] Rc As-1 Unit 310 [id number] Rc As-1 Unit 310 [id number] Output: Chest Tube Drainage 110 427 Mediastinal 60 301 PLEURAL 50 126 Drainage 5 55 Left Thigh 5 55 Urine 835 640 Estimated Blood Loss 1500 Other: Voiding Method Indwelling Catheter Indwelling Catheter ABP, PAP, CO, CI - Last Documented Arterial Blood Pressure 124/45 Pulmonary Artery Pressure 24/7 Cardiac Output 5.1 Cardiac Index 3 - Constitutional General appearance: Present: cooperative, no acute distress, obese - Respiratory Details: Lungs sounds diminished in the bases bilaterally. Respirations even, nonlabored. Currently on 2 L nasal cannula with oxygen saturation 98%. Able to achieve 500-750 mL on her incentive spirometry. Strong cough. Mediastinal chest tubes present to continuous wall suction, 195 milliliters serosanguineous drainage overnight, 350 mL since surgery. Left pleural chest tube present to continuous wall suction, 85 mL serosanguineous drainage overnight, 180 mL since surgery. No air leaks present. - Cardiovascular Details: S1, S2 present. Regular rate and rhythm, sinus tach on telemetry with heart rate in the high 90s to low 100s. Sternum stable. A/V epicardial pacemaker wires present, grounded. Palpable peripheral pulses bilaterally. Trace generalized edema present. No calf pain or tenderness noted. Heart hugger in place with patient demonstrating appropriate use. Antiembolism stockings, SCDs present. Right internal jugular [place]/Cordis, right radial arterial line present. Last CO/CI 4.4/2.6, PA 21/4, CVP 6 on low dose Primacor - Gastrointestinal Gastrointestinal Comment(s): Abdomen soft, nontender, nondistended. Hypoactive bowel sounds present 4 quadrants. Tolerating clear liquids. Negative flatus - Genitourinary Genitourinary Comment(s): Hernandez present draining clear, yellow urine. Output 40-50 mL per hour overnight - Integumentary Integumentary Comment(s): Skin is warm and dry with evidence of good perfusion. Anterior chest incision well approximated and covered with dry intact dressing. Left lower extremity EVH site well approximated, MILADIS drain present with minimal drainage. - Neurologic Neurologic: Present: CNII-XII intact - Musculoskeletal Musculoskeletal: Present: strength equal bilaterally - Psychiatric Psychiatric: Present: A&O x's 3, appropriate affect, intact judgment & insight - Allied health notes Allied health notes reviewed: nursing - Labs CBC & Chem 7: 10/29/20 03:55 10/29/20 03:55 Labs: Abnormal Lab Results - Last 24 Hours (Table) 10/27/20 10/28/20 10/28/20 Range/Units 08:20 15:36 15:39 WBC 12.3 H (3.8-10.6) k/uL RBC 3.04 L (3.80-5.40) m/uL Hgb 9.7 L D (11.4-16.0) gm/dL Hct 27.6 L (34.0-46.0) % Plt Count 106 L D (150-450) k/uL Neutrophils # 9.0 H (1.3-7.7) k/uL PT (9.0-12.0) sec INR (<1.2) APTT (22.0-30.0) sec ABG pH (7.35-7.45) ABG pCO2 (35-45) mmHg ABG pO2 (83-108) mmHg ABG Total CO2 (19-24) mmol/L ABG O2 Saturation (94-97) % Sodium (137-145) mmol/L Chloride (98-107) mmol/L Glucose (74-99) mg/dL POC Glucose (mg/dL) 166 H (75-99) mg/dL Calcium (8.4-10.2) mg/dL Magnesium (1.6-2.3) mg/dL AST (14-36) U/L Alkaline Phosphatase (38-126) U/L Total Protein (6.3-8.2) g/dL Albumin (3.5-5.0) g/dL Crossmatch See Detail 10/28/20 10/28/20 10/28/20 Range/Units 15:39 15:39 15:47 WBC (3.8-10.6) k/uL RBC (3.80-5.40) m/uL Hgb (11.4-16.0) gm/dL Hct (34.0-46.0) % Plt Count (150-450) k/uL Neutrophils # (1.3-7.7) k/uL PT 13.2 H (9.0-12.0) sec INR 1.3 H (<1.2) APTT 33.4 H (22.0-30.0) sec ABG pH 7.30 L (7.35-7.45) ABG pCO2 47 H (35-45) mmHg ABG pO2 397 H (83-108) mmHg ABG Total CO2 25 H (19-24) mmol/L ABG O2 Saturation 100.0 H (94-97) % Sodium (137-145) mmol/L Chloride 111 H (98-107) mmol/L Glucose 149 H (74-99) mg/dL POC Glucose (mg/dL) (75-99) mg/dL Calcium 7.7 L (8.4-10.2) mg/dL Magnesium 2.4 H (1.6-2.3) mg/dL AST 68 H (14-36) U/L Alkaline Phosphatase <20 L (38-126) U/L Total Protein 4.0 L (6.3-8.2) g/dL Albumin 2.4 L (3.5-5.0) g/dL Crossmatch 10/28/20 10/28/20 10/28/20 Range/Units 16:14 17:09 17:13 WBC (3.8-10.6) k/uL RBC (3.80-5.40) m/uL Hgb (11.4-16.0) gm/dL Hct (34.0-46.0) % Plt Count (150-450) k/uL Neutrophils # (1.3-7.7) k/uL PT (9.0-12.0) sec INR (<1.2) APTT (22.0-30.0) sec ABG pH 7.32 L (7.35-7.45) ABG pCO2 (35-45) mmHg ABG pO2 113 H (83-108) mmHg ABG Total CO2 (19-24) mmol/L ABG O2 Saturation 99.2 H (94-97) % Sodium (137-145) mmol/L Chloride (98-107) mmol/L Glucose (74-99) mg/dL POC Glucose (mg/dL) 195 H 204 H (75-99) mg/dL Calcium (8.4-10.2) mg/dL Magnesium (1.6-2.3) mg/dL AST (14-36) U/L Alkaline Phosphatase (38-126) U/L Total Protein (6.3-8.2) g/dL Albumin (3.5-5.0) g/dL Crossmatch 10/28/20 10/28/20 10/28/20 Range/Units 18:03 18:30 19:04 WBC 12.8 H (3.8-10.6) k/uL RBC 2.35 L (3.80-5.40) m/uL Hgb 7.3 L D (11.4-16.0) gm/dL Hct 21.2 L (34.0-46.0) % Plt Count 112 L (150-450) k/uL Neutrophils # 10.1 H (1.3-7.7) k/uL PT (9.0-12.0) sec INR (<1.2) APTT (22.0-30.0) sec ABG pH (7.35-7.45) ABG pCO2 (35-45) mmHg ABG pO2 (83-108) mmHg ABG Total CO2 (19-24) mmol/L ABG O2 Saturation (94-97) % Sodium (137-145) mmol/L Chloride (98-107) mmol/L Glucose (74-99) mg/dL POC Glucose (mg/dL) 209 H 218 H (75-99) mg/dL Calcium (8.4-10.2) mg/dL Magnesium (1.6-2.3) mg/dL AST (14-36) U/L Alkaline Phosphatase (38-126) U/L Total Protein (6.3-8.2) g/dL Albumin (3.5-5.0) g/dL Crossmatch 10/28/20 10/28/20 10/28/20 Range/Units 20:01 20:53 20:57 WBC (3.8-10.6) k/uL RBC (3.80-5.40) m/uL Hgb (11.4-16.0) gm/dL Hct (34.0-46.0) % Plt Count (150-450) k/uL Neutrophils # (1.3-7.7) k/uL PT (9.0-12.0) sec INR (<1.2) APTT (22.0-30.0) sec ABG pH 7.34 L (7.35-7.45) ABG pCO2 (35-45) mmHg ABG pO2 128 H (83-108) mmHg ABG Total CO2 (19-24) mmol/L ABG O2 Saturation 99.1 H (94-97) % Sodium (137-145) mmol/L Chloride (98-107) mmol/L Glucose (74-99) mg/dL POC Glucose (mg/dL) 223 H 217 H (75-99) mg/dL Calcium (8.4-10.2) mg/dL Magnesium (1.6-2.3) mg/dL AST (14-36) U/L Alkaline Phosphatase (38-126) U/L Total Protein (6.3-8.2) g/dL Albumin (3.5-5.0) g/dL Crossmatch 10/28/20 10/28/20 10/28/20 Range/Units 20:59 22:04 22:58 WBC (3.8-10.6) k/uL RBC 2.22 L (3.80-5.40) m/uL Hgb 6.9 L* (11.4-16.0) gm/dL Hct 20.5 L (34.0-46.0) % Plt Count 93 L (150-450) k/uL Neutrophils # 8.5 H (1.3-7.7) k/uL PT (9.0-12.0) sec INR (<1.2) APTT (22.0-30.0) sec ABG pH (7.35-7.45) ABG pCO2 (35-45) mmHg ABG pO2 (83-108) mmHg ABG Total CO2 (19-24) mmol/L ABG O2 Saturation (94-97) % Sodium (137-145) mmol/L Chloride (98-107) mmol/L Glucose (74-99) mg/dL POC Glucose (mg/dL) 197 H 196 H (75-99) mg/dL Calcium (8.4-10.2) mg/dL Magnesium (1.6-2.3) mg/dL AST (14-36) U/L Alkaline Phosphatase (38-126) U/L Total Protein (6.3-8.2) g/dL Albumin (3.5-5.0) g/dL Crossmatch 10/28/20 10/29/20 10/29/20 Range/Units 23:55 00:57 01:59 WBC (3.8-10.6) k/uL RBC (3.80-5.40) m/uL Hgb (11.4-16.0) gm/dL Hct (34.0-46.0) % Plt Count (150-450) k/uL Neutrophils # (1.3-7.7) k/uL PT (9.0-12.0) sec INR (<1.2) APTT (22.0-30.0) sec ABG pH (7.35-7.45) ABG pCO2 (35-45) mmHg ABG pO2 (83-108) mmHg ABG Total CO2 (19-24) mmol/L ABG O2 Saturation (94-97) % Sodium (137-145) mmol/L Chloride (98-107) mmol/L Glucose (74-99) mg/dL POC Glucose (mg/dL) 178 H 158 H 143 H (75-99) mg/dL Calcium (8.4-10.2) mg/dL Magnesium (1.6-2.3) mg/dL AST (14-36) U/L Alkaline Phosphatase (38-126) U/L Total Protein (6.3-8.2) g/dL Albumin (3.5-5.0) g/dL Crossmatch 10/29/20 10/29/20 10/29/20 Range/Units 03:01 03:52 03:55 WBC (3.8-10.6) k/uL RBC 1.97 L (3.80-5.40) m/uL Hgb 6.2 L* (11.4-16.0) gm/dL Hct 17.5 L* (34.0-46.0) % Plt Count 83 L (150-450) k/uL Neutrophils # (1.3-7.7) k/uL PT (9.0-12.0) sec INR (<1.2) APTT (22.0-30.0) sec ABG pH (7.35-7.45) ABG pCO2 (35-45) mmHg ABG pO2 (83-108) mmHg ABG Total CO2 (19-24) mmol/L ABG O2 Saturation (94-97) % Sodium (137-145) mmol/L Chloride (98-107) mmol/L Glucose (74-99) mg/dL POC Glucose (mg/dL) 132 H 116 H (75-99) mg/dL Calcium (8.4-10.2) mg/dL Magnesium (1.6-2.3) mg/dL AST (14-36) U/L Alkaline Phosphatase (38-126) U/L Total Protein (6.3-8.2) g/dL Albumin (3.5-5.0) g/dL Crossmatch 10/29/20 10/29/20 10/29/20 Range/Units 03:55 04:54 06:09 WBC (3.8-10.6) k/uL RBC (3.80-5.40) m/uL Hgb (11.4-16.0) gm/dL Hct (34.0-46.0) % Plt Count (150-450) k/uL Neutrophils # (1.3-7.7) k/uL PT (9.0-12.0) sec INR (<1.2) APTT (22.0-30.0) sec ABG pH (7.35-7.45) ABG pCO2 (35-45) mmHg ABG pO2 (83-108) mmHg ABG Total CO2 (19-24) mmol/L ABG O2 Saturation (94-97) % Sodium 135 L (137-145) mmol/L Chloride (98-107) mmol/L Glucose 101 H (74-99) mg/dL POC Glucose (mg/dL) 106 H 146 H (75-99) mg/dL Calcium 7.9 L (8.4-10.2) mg/dL Magnesium (1.6-2.3) mg/dL AST 62 H (14-36) U/L Alkaline Phosphatase 20 L (38-126) U/L Total Protein 4.3 L (6.3-8.2) g/dL Albumin 2.7 L (3.5-5.0) g/dL Crossmatch 10/29/20 Range/Units 07:03 WBC (3.8-10.6) k/uL RBC (3.80-5.40) m/uL Hgb (11.4-16.0) gm/dL Hct (34.0-46.0) % Plt Count (150-450) k/uL Neutrophils # (1.3-7.7) k/uL PT (9.0-12.0) sec INR (<1.2) APTT (22.0-30.0) sec ABG pH (7.35-7.45) ABG pCO2 (35-45) mmHg ABG pO2 (83-108) mmHg ABG Total CO2 (19-24) mmol/L ABG O2 Saturation (94-97) % Sodium (137-145) mmol/L Chloride (98-107) mmol/L Glucose (74-99) mg/dL POC Glucose (mg/dL) 162 H (75-99) mg/dL Calcium (8.4-10.2) mg/dL Magnesium (1.6-2.3) mg/dL AST (14-36) U/L Alkaline Phosphatase (38-126) U/L Total Protein (6.3-8.2) g/dL Albumin (3.5-5.0) g/dL Crossmatch - Imaging and Cardiology Chest x-ray: image reviewed Assessment and Plan Assessment: 1. Symptomatic coronary artery disease with left main disease, unstable angina, status post four-vessel CABG 2. Hyperkalemia on admission, resolved 3. Acute kidney injury 4. Hypertension 5. Hyperlipidemia, treated, cholesterol 124, LDL 71 6. Nyi-glmmkkm-armbtault diabetes with A1c 6.5% 7. Hypothyroid 8. Obesity 9. 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 Never smoker, FEV1 102% of predicted 11. Family history of premature coronary artery disease with a brother having stents at less than 55 years old 12. Postoperative acute blood loss anemia and thrombocytopenia, expected Plan: 1. Continue low dose ASA, statin, Plavix, beta sobeida therapy. Will increase beta sobeida therapy as tolerated 2. Wean O2 as tolerated. Encourage incentive spirometry use 10 times every hour while awake. Bronchodilators per pulmonology 3. Increase activity, ambulate as tolerated. PT/OT/cardiac rehab consulted 4. Will monitor daily labs and a chest x-rays. Electrolyte replacement per protocol. No further blood transfusion today 5. Will wean off Primacor. Keep swan for 24 hours 6. Insulin management per primary care service 7. Pain control with current medication regimen 8. Will continue Cordis, arterial line, chest tubes for another 24 hours 9. Continue Hernandez for another 24 hours for strict accurate intake and output. Daily weights. 10. Continue to encourage risk factor modification 11. More recommendations to follow based on patient's progress Time with Patient: Greater than 30
--- NOTE | 2020-10-29 07:38 | XR ---
EXAMINATION TYPE: XR chest 1V portable DATE OF EXAM: 10/29/2020 COMPARISON: Chest x-ray 10/28/2020 HISTORY: Postop cardiac surgery TECHNIQUE: Single frontal view of the chest is obtained. FINDINGS: Patient is post median sternotomy. Median sternal drains are present in the midline, there is left-sided chest tube, right-sided central venous catheter shows the distal tip stable over the p ulmonary artery, left atrial appendage clipping placement is noted. No evident pneumothorax or pleura l effusion. Patchy bilateral density persists, heart size is unchanged. Epicardial pacing leads are p resent. Calcified gallstones noted incidentally in the right upper quadrant. No sizable pneumothorax. No evident effusion. IMPRESSION: Findings are similar to prior exam. Interval extubation. There is residual atelectatic c hange, expiratory rotated exam.
[2020-10-29 08:02] LABS: Glucose,Whole Blood 162 mg/dL (75-99)
[2020-10-29] MEDS: ATORVASTATIN 40 MG TAB PO SCH (08:57)
[2020-10-29] MEDS: CLOPIDOGREL 75 MG TAB PO SCH (08:59)
[2020-10-29] MEDS ORDERED: MAGNESIUM HYDROXIDE 2,400 MG/10 ML CUP PO PRN (09:00)
[2020-10-29] MEDS ORDERED: PANTOPRAZOLE 40 MG/10 ML VIAL IVP SCH (09:00)
[2020-10-29] MEDS ORDERED: METOPROLOL TARTRATE 12.5 MG TAB PO SCH (09:00)
[2020-10-29] MEDS ORDERED: ASPIRIN 325 MG TAB PO SCH (09:00)
[2020-10-29] MEDS ORDERED: bisacodyL 10 MG SUPP RECTAL PRN (09:00)
[2020-10-29] MEDS: HYDROcodone/APAP 5-325MG 1 EACH TAB PO PRN ×2 (09:01→13:40)
[2020-10-29 09:15] LABS: Glucose,Whole Blood 131 mg/dL (75-99)
[2020-10-29 09:36] LABS: HCT 23.6 % (34.0-46.0); MCH 29.8 pg (25.0-35.0); MCHC 33.7 g/dL (31.0-37.0); MCV 88.5 fL (80.0-100.0); Mean Platelet Volume 10.7; RBC 2.67 m/uL (3.80-5.40); WBC 9.8 k/uL (3.8-10.6)
[2020-10-29 09:38] LABS: Platelet Count 95 k/uL (150-450)
--- NOTE | 2020-10-29 10:56 | P.PN ---
Subjective Progress Note Date: 10/29/20 Principal diagnosis: Chest pain, symptomatic coronary artery disease This patient was admitted via the emergency room with chest pain, at the beginning of the pandemic she was evaluated by Dr. Duran and told that she needed a cardiac catheterization she elected to forego this basically because she was afraid to be admitted to the hospital because of the virus. She came home from [place] presented to the emergency room recently with chest pain and was admitted to the hospital. A workup ensued patient underwent a catheterization and was found to have 4 vessel coronary artery disease. The decision was made to proceed with coronary artery bypass grafting decision was made by both the patient discussing it with myself the information systems audit manager Dr. Trevor Resendiz MD, the patient's and subsequent discussion with Biju Prather NP the cardiothoracic surgery service. Objective - Vital Signs Vital signs: Vital Signs Temp 98.8 F 10/29/20 08:00 Pulse 104 H 10/29/20 09:00 Resp 27 H 10/29/20 09:00 BP 109/56 10/29/20 09:00 Pulse Ox 93 L 10/29/20 09:00 Intake & Output 10/28/20 10/29/20 10/29/20 18:59 06:59 18:59 Intake Total 2267.196 2606.487 428.401 Output Total 2450 1122 110 Balance -352.282 7057.487 318.401 Weight 82.1 kg 82.1 kg Intake: IV 980 1287 398 ACETAMINOPHEN IV (For NPO 100 100 ) 1,000 mg In Empty Bag 1 bag @ 400 mls/hr IVPB Q6HR [facility] Rx#:[id number] Albumin Human 5% 250 ml 500 250 In Empty Bag 1 bag @ 250 mls/hr IVPB Q1HR PRN Rx#: [id number] CO/CI 70 30 Lactated Ringers 1,000 ml 150 650 100 @ 20 mls/hr IV .Q24H [facility] Rx#:[id number] Magnesium 100 PRESSURE BAGS 27 117 18 ceFAZolin 2 gm In Sodium 100 100 50 Chloride 0.9% 50 ml @ 100 mls/hr IVPB Q8HR [facility] Rx# :[id number] potassium 100 Intake, IV Titration 47.196 199.487 30.401 Amount Clevidipine Butyrate 25 1.733 mg In Empty Bag 1 bag @ 1 MG/HR 2 mls/hr IV .Q24H [facility] Rx#:[id number] Insulin Regular 100 unit 7.878 102.675 30.401 In Sodium Chloride 0.9% 100 ml @ Per Protocol IV .Q0M [facility] Rx#:[id number] Milrinone-D5w Pmx 20 mg 95.079 In Dextrose/Water 1 100ml .bag @ Per Protocol IV . Q0M [facility] Rx#:[id number] Norepinephrine 4 mg In 18.96 Sodium Chloride 0.9% 250 ml @ Titrate IV .Q0M [facility] Rx#:[id number] propofoL 1,000 mg In 20.358 Empty Bag 1 bag @ Titrate IV .Q0M [facility] Rx#: [id number] Oral 500 Blood Product 1240 620 Rc As-1 Unit 310 [id number] Rc As-1 Unit 310 [id number] Rc As-1 Unit 310 [id number] Rc As-1 Unit 310 [id number] Rc As-1 Unit 310 [id number] Output: Chest Tube Drainage 110 427 50 Mediastinal 60 301 40 PLEURAL 50 126 10 Drainage 5 55 Left Thigh 5 55 Urine 835 640 60 Estimated Blood Loss 1500 Other: Voiding Method Indwelling Catheter Indwelling Catheter ABP, PAP, CO, CI - Last Documented Arterial Blood Pressure 115/45 Pulmonary Artery Pressure 26/9 Cardiac Output 4.1 Cardiac Index 2.4 - Exam General: [Patient awake, alert and oriented times 3. Patient in no acute distress.] HEENT: [PERRL. EOMI. No pharyngeal erythema or exudate.] Neck: [No adenopathy.] Cardiac: Midline surgical incision, chest tubes in place patient moving air well Lungs: Good air exchange Abdomen: [No mass. No organomegaly. Bowel sounds presnt and normoactive in all 4 quadrants.] Extremes: Incision noted for vein removal : Normal female genitalia Musculoskeletal: [No joint erythema, edema or tenderness.] Skin: [No rash.] Neurologic: [No lateralizing deficits. CN II - XII grossly intact.] Lymphatic: [No adenopathy.] - Labs CBC & Chem 7: 10/29/20 09:14 10/29/20 03:55 Labs: Abnormal Lab Results - Last 24 Hours (Table) 10/27/20 10/28/20 10/28/20 Range/Units 08:20 15:36 15:39 WBC 12.3 H (3.8-10.6) k/uL RBC 3.04 L (3.80-5.40) m/uL Hgb 9.7 L D (11.4-16.0) gm/dL Hct 27.6 L (34.0-46.0) % Plt Count 106 L D (150-450) k/uL Neutrophils # 9.0 H (1.3-7.7) k/uL PT (9.0-12.0) sec INR (<1.2) APTT (22.0-30.0) sec ABG pH (7.35-7.45) ABG pCO2 (35-45) mmHg ABG pO2 (83-108) mmHg ABG Total CO2 (19-24) mmol/L ABG O2 Saturation (94-97) % Sodium (137-145) mmol/L Chloride (98-107) mmol/L Glucose (74-99) mg/dL POC Glucose (mg/dL) 166 H (75-99) mg/dL Calcium (8.4-10.2) mg/dL Magnesium (1.6-2.3) mg/dL AST (14-36) U/L Alkaline Phosphatase (38-126) U/L Total Protein (6.3-8.2) g/dL Albumin (3.5-5.0) g/dL Crossmatch See Detail 10/28/20 10/28/20 10/28/20 Range/Units 15:39 15:39 15:47 WBC (3.8-10.6) k/uL RBC (3.80-5.40) m/uL Hgb (11.4-16.0) gm/dL Hct (34.0-46.0) % Plt Count (150-450) k/uL Neutrophils # (1.3-7.7) k/uL PT 13.2 H (9.0-12.0) sec INR 1.3 H (<1.2) APTT 33.4 H (22.0-30.0) sec ABG pH 7.30 L (7.35-7.45) ABG pCO2 47 H (35-45) mmHg ABG pO2 397 H (83-108) mmHg ABG Total CO2 25 H (19-24) mmol/L ABG O2 Saturation 100.0 H (94-97) % Sodium (137-145) mmol/L Chloride 111 H (98-107) mmol/L Glucose 149 H (74-99) mg/dL POC Glucose (mg/dL) (75-99) mg/dL Calcium 7.7 L (8.4-10.2) mg/dL Magnesium 2.4 H (1.6-2.3) mg/dL AST 68 H (14-36) U/L Alkaline Phosphatase <20 L (38-126) U/L Total Protein 4.0 L (6.3-8.2) g/dL Albumin 2.4 L (3.5-5.0) g/dL Crossmatch 10/28/20 10/28/20 10/28/20 Range/Units 16:14 17:09 17:13 WBC (3.8-10.6) k/uL RBC (3.80-5.40) m/uL Hgb (11.4-16.0) gm/dL Hct (34.0-46.0) % Plt Count (150-450) k/uL Neutrophils # (1.3-7.7) k/uL PT (9.0-12.0) sec INR (<1.2) APTT (22.0-30.0) sec ABG pH 7.32 L (7.35-7.45) ABG pCO2 (35-45) mmHg ABG pO2 113 H (83-108) mmHg ABG Total CO2 (19-24) mmol/L ABG O2 Saturation 99.2 H (94-97) % Sodium (137-145) mmol/L Chloride (98-107) mmol/L Glucose (74-99) mg/dL POC Glucose (mg/dL) 195 H 204 H (75-99) mg/dL Calcium (8.4-10.2) mg/dL Magnesium (1.6-2.3) mg/dL AST (14-36) U/L Alkaline Phosphatase (38-126) U/L Total Protein (6.3-8.2) g/dL Albumin (3.5-5.0) g/dL Crossmatch 10/28/20 10/28/20 10/28/20 Range/Units 18:03 18:30 19:04 WBC 12.8 H (3.8-10.6) k/uL RBC 2.35 L (3.80-5.40) m/uL Hgb 7.3 L D (11.4-16.0) gm/dL Hct 21.2 L (34.0-46.0) % Plt Count 112 L (150-450) k/uL Neutrophils # 10.1 H (1.3-7.7) k/uL PT (9.0-12.0) sec INR (<1.2) APTT (22.0-30.0) sec ABG pH (7.35-7.45) ABG pCO2 (35-45) mmHg ABG pO2 (83-108) mmHg ABG Total CO2 (19-24) mmol/L ABG O2 Saturation (94-97) % Sodium (137-145) mmol/L Chloride (98-107) mmol/L Glucose (74-99) mg/dL POC Glucose (mg/dL) 209 H 218 H (75-99) mg/dL Calcium (8.4-10.2) mg/dL Magnesium (1.6-2.3) mg/dL AST (14-36) U/L Alkaline Phosphatase (38-126) U/L Total Protein (6.3-8.2) g/dL Albumin (3.5-5.0) g/dL Crossmatch 10/28/20 10/28/20 10/28/20 Range/Units 20:01 20:53 20:57 WBC (3.8-10.6) k/uL RBC (3.80-5.40) m/uL Hgb (11.4-16.0) gm/dL Hct (34.0-46.0) % Plt Count (150-450) k/uL Neutrophils # (1.3-7.7) k/uL PT (9.0-12.0) sec INR (<1.2) APTT (22.0-30.0) sec ABG pH 7.34 L (7.35-7.45) ABG pCO2 (35-45) mmHg ABG pO2 128 H (83-108) mmHg ABG Total CO2 (19-24) mmol/L ABG O2 Saturation 99.1 H (94-97) % Sodium (137-145) mmol/L Chloride (98-107) mmol/L Glucose (74-99) mg/dL POC Glucose (mg/dL) 223 H 217 H (75-99) mg/dL Calcium (8.4-10.2) mg/dL Magnesium (1.6-2.3) mg/dL AST (14-36) U/L Alkaline Phosphatase (38-126) U/L Total Protein (6.3-8.2) g/dL Albumin (3.5-5.0) g/dL Crossmatch 10/28/20 10/28/20 10/28/20 Range/Units 20:59 22:04 22:58 WBC (3.8-10.6) k/uL RBC 2.22 L (3.80-5.40) m/uL Hgb 6.9 L* (11.4-16.0) gm/dL Hct 20.5 L (34.0-46.0) % Plt Count 93 L (150-450) k/uL Neutrophils # 8.5 H (1.3-7.7) k/uL PT (9.0-12.0) sec INR (<1.2) APTT (22.0-30.0) sec ABG pH (7.35-7.45) ABG pCO2 (35-45) mmHg ABG pO2 (83-108) mmHg ABG Total CO2 (19-24) mmol/L ABG O2 Saturation (94-97) % Sodium (137-145) mmol/L Chloride (98-107) mmol/L Glucose (74-99) mg/dL POC Glucose (mg/dL) 197 H 196 H (75-99) mg/dL Calcium (8.4-10.2) mg/dL Magnesium (1.6-2.3) mg/dL AST (14-36) U/L Alkaline Phosphatase (38-126) U/L Total Protein (6.3-8.2) g/dL Albumin (3.5-5.0) g/dL Crossmatch 10/28/20 10/29/20 10/29/20 Range/Units 23:55 00:57 01:59 WBC (3.8-10.6) k/uL RBC (3.80-5.40) m/uL Hgb (11.4-16.0) gm/dL Hct (34.0-46.0) % Plt Count (150-450) k/uL Neutrophils # (1.3-7.7) k/uL PT (9.0-12.0) sec INR (<1.2) APTT (22.0-30.0) sec ABG pH (7.35-7.45) ABG pCO2 (35-45) mmHg ABG pO2 (83-108) mmHg ABG Total CO2 (19-24) mmol/L ABG O2 Saturation (94-97) % Sodium (137-145) mmol/L Chloride (98-107) mmol/L Glucose (74-99) mg/dL POC Glucose (mg/dL) 178 H 158 H 143 H (75-99) mg/dL Calcium (8.4-10.2) mg/dL Magnesium (1.6-2.3) mg/dL AST (14-36) U/L Alkaline Phosphatase (38-126) U/L Total Protein (6.3-8.2) g/dL Albumin (3.5-5.0) g/dL Crossmatch 10/29/20 10/29/20 10/29/20 Range/Units 03:01 03:52 03:55 WBC (3.8-10.6) k/uL RBC 1.97 L (3.80-5.40) m/uL Hgb 6.2 L* (11.4-16.0) gm/dL Hct 17.5 L* (34.0-46.0) % Plt Count 83 L (150-450) k/uL Neutrophils # (1.3-7.7) k/uL PT (9.0-12.0) sec INR (<1.2) APTT (22.0-30.0) sec ABG pH (7.35-7.45) ABG pCO2 (35-45) mmHg ABG pO2 (83-108) mmHg ABG Total CO2 (19-24) mmol/L ABG O2 Saturation (94-97) % Sodium (137-145) mmol/L Chloride (98-107) mmol/L Glucose (74-99) mg/dL POC Glucose (mg/dL) 132 H 116 H (75-99) mg/dL Calcium (8.4-10.2) mg/dL Magnesium (1.6-2.3) mg/dL AST (14-36) U/L Alkaline Phosphatase (38-126) U/L Total Protein (6.3-8.2) g/dL Albumin (3.5-5.0) g/dL Crossmatch 10/29/20 10/29/20 10/29/20 Range/Units 03:55 04:54 06:09 WBC (3.8-10.6) k/uL RBC (3.80-5.40) m/uL Hgb (11.4-16.0) gm/dL Hct (34.0-46.0) % Plt Count (150-450) k/uL Neutrophils # (1.3-7.7) k/uL PT (9.0-12.0) sec INR (<1.2) APTT (22.0-30.0) sec ABG pH (7.35-7.45) ABG pCO2 (35-45) mmHg ABG pO2 (83-108) mmHg ABG Total CO2 (19-24) mmol/L ABG O2 Saturation (94-97) % Sodium 135 L (137-145) mmol/L Chloride (98-107) mmol/L Glucose 101 H (74-99) mg/dL POC Glucose (mg/dL) 106 H 146 H (75-99) mg/dL Calcium 7.9 L (8.4-10.2) mg/dL Magnesium (1.6-2.3) mg/dL AST 62 H (14-36) U/L Alkaline Phosphatase 20 L (38-126) U/L Total Protein 4.3 L (6.3-8.2) g/dL Albumin 2.7 L (3.5-5.0) g/dL Crossmatch 10/29/20 10/29/20 10/29/20 Range/Units 07:03 08:00 09:14 WBC (3.8-10.6) k/uL RBC (3.80-5.40) m/uL Hgb (11.4-16.0) gm/dL Hct (34.0-46.0) % Plt Count (150-450) k/uL Neutrophils # (1.3-7.7) k/uL PT (9.0-12.0) sec INR (<1.2) APTT (22.0-30.0) sec ABG pH (7.35-7.45) ABG pCO2 (35-45) mmHg ABG pO2 (83-108) mmHg ABG Total CO2 (19-24) mmol/L ABG O2 Saturation (94-97) % Sodium (137-145) mmol/L Chloride (98-107) mmol/L Glucose (74-99) mg/dL POC Glucose (mg/dL) 162 H 162 H 131 H (75-99) mg/dL Calcium (8.4-10.2) mg/dL Magnesium (1.6-2.3) mg/dL AST (14-36) U/L Alkaline Phosphatase (38-126) U/L Total Protein (6.3-8.2) g/dL Albumin (3.5-5.0) g/dL Crossmatch 10/29/20 Range/Units 09:14 WBC (3.8-10.6) k/uL RBC 2.67 L (3.80-5.40) m/uL Hgb 8.0 L D (11.4-16.0) gm/dL Hct 23.6 L (34.0-46.0) % Plt Count 95 L (150-450) k/uL Neutrophils # (1.3-7.7) k/uL PT (9.0-12.0) sec INR (<1.2) APTT (22.0-30.0) sec ABG pH (7.35-7.45) ABG pCO2 (35-45) mmHg ABG pO2 (83-108) mmHg ABG Total CO2 (19-24) mmol/L ABG O2 Saturation (94-97) % Sodium (137-145) mmol/L Chloride (98-107) mmol/L Glucose (74-99) mg/dL POC Glucose (mg/dL) (75-99) mg/dL Calcium (8.4-10.2) mg/dL Magnesium (1.6-2.3) mg/dL AST (14-36) U/L Alkaline Phosphatase (38-126) U/L Total Protein (6.3-8.2) g/dL Albumin (3.5-5.0) g/dL Crossmatch Assessment and Plan (1) H/O four vessel coronary artery bypass graft Current Visit: Yes Status: Acute Code(s): Z95.1 - PRESENCE OF AORTOCORONARY BYPASS GRAFT SNOMED Code(s): 493792760 (2) Coronary artery 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 Current Visit: Yes Status: Acute Code(s): E11.59 - TYPE 2 DIABETES MELLITUS WITH OTH CIRCULATORY COMPLICATIONS; I25.10 - ATHSCL HEART DISEASE OF [place] CORONARY ARTERY W/O ANG PCTRS SNOMED Code(s): 86563036536507424 (3) Type 2 diabetes mellitus Current Visit: Yes Status: Acute Code(s): E11.9 - TYPE 2 DIABETES MELLITUS WITHOUT COMPLICATIONS SNOMED Code(s): 86981617 (4) Hypertension Current Visit: Yes Status: Acute Code(s): I10 - ESSENTIAL (PRIMARY) HYPERTENSION SNOMED Code(s): 30705125 Plan: Symptomatic coronary artery disease, left main disease unstable angina status post 4 vessel coronary artery bypass grafting Hypokalemia on admission resolved Acute kidney injury improving Hypertension Hyperlipidemia treated LDL 71 Hypothyroidism by history Obesity by history History of cervical radiculopathy Nonsmoker Family history of premature coronary artery disease Plan: aspirin statin Plavix beta sobeida increased beta sobeida therapy as tolerated Mean O2 as tolerated, incentive spirometry at bedside and encourage use Increase activity PTOT and cardiac rehab as recommended Monitor labs per recommendation Insulin management siding scale for now will change recommendations as needed Risk modification has recommended Time with Patient: Greater than 30
[2020-10-29] MEDS: ASPIRIN 81 MG PO SCH (10:58)
[2020-10-29 11:01] LABS: Glucose,Whole Blood 121 mg/dL (75-99)
[2020-10-29] MEDS ORDERED: METOPROLOL TARTRATE 12.5 MG TAB PO STA (12:05)
[2020-10-29 12:14] LABS: Glucose,Whole Blood 105 mg/dL (75-99)
[2020-10-29] MEDS: LACTATED RINGERS 1,000 ML IV SCH (12:23)
--- NOTE | 2020-10-29 12:36 | P.PN ---
Subjective Progress Note Date: 10/29/20 Principal diagnosis: Coronary artery disease, status post coronary artery bypass grafting 4 75-year-old female who presented to the emergency department on October 24 at 8:00 in the morning. She apparently had chest tightness and pain. It began at 3 AM in the morning and occurred for about 5 hours before she arrived to the emergency department. The pain apparently was also noted in the left arm, and she had chest tightness as well as pain. She had no nausea, vomiting, or diaphoresis. She apparently did have an abnormal stress test in the fall, and it was recommended at that time that she have a cardiac catheterization. Her initial plan was to go down to [place]. She was given a prescription and the time down there and then come back in January and have her heart catheterization at that time. Apparently family members talked her out of it and she decided to have a heart catheterization done right away. The heart catheterization revealed a 70% occlusion in the left main, 70% occlusion in the left anterior descending coronary artery, 70% to 80% occlusion and the circumflex coronary artery and a 70% occlusion and the right coronary artery. Bypass grafting was recommended by cardiology. She apparently is going to have surgery on Saturday. We were asked to see her in preop evaluation. She does not have any history of any lung issues. She is a lifelong nonsmoker. She denies any emphysema, chronic bronchitis, asthma, or COPD. Her lung function were quite good. Her FEV1 percent was 102%. She does carry with her diagnosis of hypertension, diabetes, hyperlipidemia, and hypothyroidism. Progress note dated 10/27/2020 75-year-old female with anticipated bypass grafting tomorrow. The surgery will be done by Dr. Mills. Currently, the patient seemed be doing relatively well. The patient is not receiving any supplemental oxygen. The patient is currently not receiving any IV fluids. The patient has had no further chest pain. She is resting comfortably. In fact we went to see her today, she was walking the hallway. Her catheterization rev ealed a 70% occlusion of the left main coronary artery, a 70% occlusion in the left anterior descending coronary artery, 70-80% occlusion in the circumflex coronary artery and a 70% occlusion in the right coronary artery. Her preoperative lung function were excellent. She is a lifelong nonsmoker. She denies any history of COPD, emphysema, chronic bronchitis, asthma, or any lung condition. She should do well. The patient is seen today 10/28/2020 in the immediate postoperative setting in the ICU. She is now status post coronary artery bypass grafting 4 utilizing the MARTINEZ to the LAD, SVGs to the OM1, OM 3, PDA. Postoperative day #0. She is currently intubated on mechanical ventilator with assist-control mode at a rate of 12, tidal volume 350, FiO2 100% and a PEEP of 10. Arterial blood gases reveal a pO2 of 397, pCO2 47, pH 7.30. She is currently sedated on propofol at 20 mcg/kg/m, lactated Ringer's at 50 ML's per hour. She is requiring norepinephrine at 0.02 mcg/kg/m, nitroglycerin at 5 mcg/m, milrinone at 0.3 mcg/kg/m. She is currently in normal sinus rhythm. Cardiac output 2.3. Cardiac index 1.3. PA pressures 36/25. There is a left pleural chest tube in place, mediastinal chest tubes 2. She is status post 4 units of packed red blood cells. One unit of platelets pending. Current hemoglobin 9.7. Platelet count 106. White count 12.3. INR 1.3. Sodium 138. Potassium 4.7. Creatinine 0.74. AST 60. ALT 15. Albumin 2.4. Initiated on bronchodilators. Chest x- ray reveals trace left apical pneumothorax measuring 1.1 cm. Mild pulmonary vascular congestion. Epicardial pacer leads in place. The patient is seen today 10/29/2020 in follow-up in the intensive care unit. She is awake and alert in no acute distress. Currently sitting up in a chair at the bedside. Maintaining O2 saturation in the 90s on 2 L/m per nasal cannula. She was extubated yesterday within the 6 hour window postop. She is still requiring Primacor at 0.2 mcg/kg/m. She's on insulin drip at 10 units per hour. She is receiving her fifth unit of packed red blood cells this admission. This morning's hemoglobin was 6.2. Post transfusion currently at 8.0. White count 9.8. Platelets 95,000. Sodium 135. Potassium 3.5. Creatinine 0.86. Chest x- ray reveals no evidence of pneumothorax or pleural effusion. Some patchy bilateral density persists with some residual atelectatic changes. Mediastinal 2 and left pleural chest tube in place. Right-sided CVP in place. She remains on bronchodilators. Working well with the incentive spirometer. Receiving cefazolin. Heparin for DVT prophylaxis. Objective - Vital Signs Vital signs: Vital Signs Temp 98.8 F 10/29/20 08:00 Pulse 99 10/29/20 12:02 Resp 23 10/29/20 12:00 BP 109/56 10/29/20 12:00 Pulse Ox 98 10/29/20 12:00 Intake & Output 10/28/20 10/29/20 10/29/20 18:59 06:59 18:59 Intake Total 2267.196 2606.487 726.445 Output Total 2450 1122 200 Balance -791.878 7770.487 526.445 Weight 82.1 kg 82.1 kg Intake: IV 980 1287 615 ACETAMINOPHEN IV (For NPO 100 100 ) 1,000 mg In Empty Bag 1 bag @ 400 mls/hr IVPB Q6HR [facility] Rx#:[id number] Albumin Human 5% 250 ml 500 250 In Empty Bag 1 bag @ 250 mls/hr IVPB Q1HR PRN Rx#: [id number] CO/CI 70 70 Lactated Ringers 1,000 ml 150 650 250 @ 20 mls/hr IV .Q24H [facility] Rx#:[id number] Magnesium 100 PRESSURE BAGS 27 117 45 ceFAZolin 2 gm In Sodium 100 100 50 Chloride 0.9% 50 ml @ 100 mls/hr IVPB Q8HR [facility] Rx# :[id number] potassium 100 Intake, IV Titration 47.196 199.487 111.445 Amount Clevidipine Butyrate 25 1.733 mg In Empty Bag 1 bag @ 1 MG/HR 2 mls/hr IV .Q24H [facility] Rx#:[id number] Insulin Regular 100 unit 7.878 102.675 54.254 In Sodium Chloride 0.9% 100 ml @ Per Protocol IV .Q0M [facility] Rx#:[id number] Milrinone-D5w Pmx 20 mg 95.079 57.191 In Dextrose/Water 1 100ml .bag @ Per Protocol IV . Q0M [facility] Rx#:[id number] Norepinephrine 4 mg In 18.96 Sodium Chloride 0.9% 250 ml @ Titrate IV .Q0M [facility] Rx#:[id number] propofoL 1,000 mg In 20.358 Empty Bag 1 bag @ Titrate IV .Q0M [facility] Rx#: [id number] Oral 500 Blood Product 1240 620 Rc As-1 Unit 310 [id number] Rc As-1 Unit 310 [id number] Rc As-1 Unit 310 [id number] Rc As-1 Unit 310 [id number] Rc As-1 Unit 310 [id number] Output: Chest Tube Drainage 110 427 70 Mediastinal 60 301 50 PLEURAL 50 126 20 Drainage 5 55 Left Thigh 5 55 Urine 835 640 130 Estimated Blood Loss 1500 Other: Voiding Method Indwelling Catheter Indwelling Catheter Indwelling Catheter ABP, PAP, CO, CI - Last Documented Arterial Blood Pressure 116/45 Pulmonary Artery Pressure 24/6 Cardiac Output 4.2 Cardiac Index 2.4 - Exam GENERAL EXAM: Awake, alert, pale 75-year-old female patient, up in a chair at the bedside, on 2 L/m per nasal cannula, fairly comfortable in no apparent distress. HEAD: Normocephalic. EYES: Sluggish reaction of pupils, equal size. NOSE: Clear with pink turbinates. THROAT: Oral endotracheal and gastric tube secured in place No erythema or exudates. NECK: No masses, no JVD. CHEST: Sternal dressing dry and intact, Heart hugger in place. Pacer wires in place. Left pleural and mediastinal chest tubes in place. LUNGS: Equal air entry with crackles in the bilateral posterior bases. CVS: S1 and S2 normal with no audible murmur, regular rhythm. ABDOMEN: No hepatosplenomegaly, bowel sounds, no guarding or rigidity. SPINE: No scoliosis or deformity SKIN: No rashes CENTRAL NERVOUS SYSTEM: Sedated. No focal deficits, tone is normal in all 4 extremities. EXTREMITIES: There is trace peripheral edema. MILADIS drain in place. No clubbing, no cyanosis. Peripheral pulses are intact. - Labs CBC & Chem 7: 10/29/20 09:14 10/29/20 03:55 Labs: Abnormal Lab Results - Last 24 Hours (Table) 10/27/20 10/28/20 10/28/20 Range/Units 08:20 15:36 15:39 WBC 12.3 H (3.8-10.6) k/uL RBC 3.04 L (3.80-5.40) m/uL Hgb 9.7 L D (11.4-16.0) gm/dL Hct 27.6 L (34.0-46.0) % Plt Count 106 L D (150-450) k/uL Neutrophils # 9.0 H (1.3-7.7) k/uL PT (9.0-12.0) sec INR (<1.2) APTT (22.0-30.0) sec ABG pH (7.35-7.45) ABG pCO2 (35-45) mmHg ABG pO2 (83-108) mmHg ABG Total CO2 (19-24) mmol/L ABG O2 Saturation (94-97) % Sodium (137-145) mmol/L Chloride (98-107) mmol/L Glucose (74-99) mg/dL POC Glucose (mg/dL) 166 H (75-99) mg/dL Calcium (8.4-10.2) mg/dL Magnesium (1.6-2.3) mg/dL AST (14-36) U/L Alkaline Phosphatase (38-126) U/L Total Protein (6.3-8.2) g/dL Albumin (3.5-5.0) g/dL Crossmatch See Detail 10/28/20 10/28/20 10/28/20 Range/Units 15:39 15:39 15:47 WBC (3.8-10.6) k/uL RBC (3.80-5.40) m/uL Hgb (11.4-16.0) gm/dL Hct (34.0-46.0) % Plt Count (150-450) k/uL Neutrophils # (1.3-7.7) k/uL PT 13.2 H (9.0-12.0) sec INR 1.3 H (<1.2) APTT 33.4 H (22.0-30.0) sec ABG pH 7.30 L (7.35-7.45) ABG pCO2 47 H (35-45) mmHg ABG pO2 397 H (83-108) mmHg ABG Total CO2 25 H (19-24) mmol/L ABG O2 Saturation 100.0 H (94-97) % Sodium (137-145) mmol/L Chloride 111 H (98-107) mmol/L Glucose 149 H (74-99) mg/dL POC Glucose (mg/dL) (75-99) mg/dL Calcium 7.7 L (8.4-10.2) mg/dL Magnesium 2.4 H (1.6-2.3) mg/dL AST 68 H (14-36) U/L Alkaline Phosphatase <20 L (38-126) U/L Total Protein 4.0 L (6.3-8.2) g/dL Albumin 2.4 L (3.5-5.0) g/dL Crossmatch 10/28/20 10/28/20 10/28/20 Range/Units 16:14 17:09 17:13 WBC (3.8-10.6) k/uL RBC (3.80-5.40) m/uL Hgb (11.4-16.0) gm/dL Hct (34.0-46.0) % Plt Count (150-450) k/uL Neutrophils # (1.3-7.7) k/uL PT (9.0-12.0) sec INR (<1.2) APTT (22.0-30.0) sec ABG pH 7.32 L (7.35-7.45) ABG pCO2 (35-45) mmHg ABG pO2 113 H (83-108) mmHg ABG Total CO2 (19-24) mmol/L ABG O2 Saturation 99.2 H (94-97) % Sodium (137-145) mmol/L Chloride (98-107) mmol/L Glucose (74-99) mg/dL POC Glucose (mg/dL) 195 H 204 H (75-99) mg/dL Calcium (8.4-10.2) mg/dL Magnesium (1.6-2.3) mg/dL AST (14-36) U/L Alkaline Phosphatase (38-126) U/L Total Protein (6.3-8.2) g/dL Albumin (3.5-5.0) g/dL Crossmatch 10/28/20 10/28/20 10/28/20 Range/Units 18:03 18:30 19:04 WBC 12.8 H (3.8-10.6) k/uL RBC 2.35 L (3.80-5.40) m/uL Hgb 7.3 L D (11.4-16.0) gm/dL Hct 21.2 L (34.0-46.0) % Plt Count 112 L (150-450) k/uL Neutrophils # 10.1 H (1.3-7.7) k/uL PT (9.0-12.0) sec INR (<1.2) APTT (22.0-30.0) sec ABG pH (7.35-7.45) ABG pCO2 (35-45) mmHg ABG pO2 (83-108) mmHg ABG Total CO2 (19-24) mmol/L ABG O2 Saturation (94-97) % Sodium (137-145) mmol/L Chloride (98-107) mmol/L Glucose (74-99) mg/dL POC Glucose (mg/dL) 209 H 218 H (75-99) mg/dL Calcium (8.4-10.2) mg/dL Magnesium (1.6-2.3) mg/dL AST (14-36) U/L Alkaline Phosphatase (38-126) U/L Total Protein (6.3-8.2) g/dL Albumin (3.5-5.0) g/dL Crossmatch 10/28/20 10/28/20 10/28/20 Range/Units 20:01 20:53 20:57 WBC (3.8-10.6) k/uL RBC (3.80-5.40) m/uL Hgb (11.4-16.0) gm/dL Hct (34.0-46.0) % Plt Count (150-450) k/uL Neutrophils # (1.3-7.7) k/uL PT (9.0-12.0) sec INR (<1.2) APTT (22.0-30.0) sec ABG pH 7.34 L (7.35-7.45) ABG pCO2 (35-45) mmHg ABG pO2 128 H (83-108) mmHg ABG Total CO2 (19-24) mmol/L ABG O2 Saturation 99.1 H (94-97) % Sodium (137-145) mmol/L Chloride (98-107) mmol/L Glucose (74-99) mg/dL POC Glucose (mg/dL) 223 H 217 H (75-99) mg/dL Calcium (8.4-10.2) mg/dL Magnesium (1.6-2.3) mg/dL AST (14-36) U/L Alkaline Phosphatase (38-126) U/L Total Protein (6.3-8.2) g/dL Albumin (3.5-5.0) g/dL Crossmatch 10/28/20 10/28/20 10/28/20 Range/Units 20:59 22:04 22:58 WBC (3.8-10.6) k/uL RBC 2.22 L (3.80-5.40) m/uL Hgb 6.9 L* (11.4-16.0) gm/dL Hct 20.5 L (34.0-46.0) % Plt Count 93 L (150-450) k/uL Neutrophils # 8.5 H (1.3-7.7) k/uL PT (9.0-12.0) sec INR (<1.2) APTT (22.0-30.0) sec ABG pH (7.35-7.45) ABG pCO2 (35-45) mmHg ABG pO2 (83-108) mmHg ABG Total CO2 (19-24) mmol/L ABG O2 Saturation (94-97) % Sodium (137-145) mmol/L Chloride (98-107) mmol/L Glucose (74-99) mg/dL POC Glucose (mg/dL) 197 H 196 H (75-99) mg/dL Calcium (8.4-10.2) mg/dL Magnesium (1.6-2.3) mg/dL AST (14-36) U/L Alkaline Phosphatase (38-126) U/L Total Protein (6.3-8.2) g/dL Albumin (3.5-5.0) g/dL Crossmatch 10/28/20 10/29/20 10/29/20 Range/Units 23:55 00:57 01:59 WBC (3.8-10.6) k/uL RBC (3.80-5.40) m/uL Hgb (11.4-16.0) gm/dL Hct (34.0-46.0) % Plt Count (150-450) k/uL Neutrophils # (1.3-7.7) k/uL PT (9.0-12.0) sec INR (<1.2) APTT (22.0-30.0) sec ABG pH (7.35-7.45) ABG pCO2 (35-45) mmHg ABG pO2 (83-108) mmHg ABG Total CO2 (19-24) mmol/L ABG O2 Saturation (94-97) % Sodium (137-145) mmol/L Chloride (98-107) mmol/L Glucose (74-99) mg/dL POC Glucose (mg/dL) 178 H 158 H 143 H (75-99) mg/dL Calcium (8.4-10.2) mg/dL Magnesium (1.6-2.3) mg/dL AST (14-36) U/L Alkaline Phosphatase (38-126) U/L Total Protein (6.3-8.2) g/dL Albumin (3.5-5.0) g/dL Crossmatch 10/29/20 10/29/20 10/29/20 Range/Units 03:01 03:52 03:55 WBC (3.8-10.6) k/uL RBC 1.97 L (3.80-5.40) m/uL Hgb 6.2 L* (11.4-16.0) gm/dL Hct 17.5 L* (34.0-46.0) % Plt Count 83 L (150-450) k/uL Neutrophils # (1.3-7.7) k/uL PT (9.0-12.0) sec INR (<1.2) APTT (22.0-30.0) sec ABG pH (7.35-7.45) ABG pCO2 (35-45) mmHg ABG pO2 (83-108) mmHg ABG Total CO2 (19-24) mmol/L ABG O2 Saturation (94-97) % Sodium (137-145) mmol/L Chloride (98-107) mmol/L Glucose (74-99) mg/dL POC Glucose (mg/dL) 132 H 116 H (75-99) mg/dL Calcium (8.4-10.2) mg/dL Magnesium (1.6-2.3) mg/dL AST (14-36) U/L Alkaline Phosphatase (38-126) U/L Total Protein (6.3-8.2) g/dL Albumin (3.5-5.0) g/dL Crossmatch 10/29/20 10/29/20 10/29/20 Range/Units 03:55 04:54 06:09 WBC (3.8-10.6) k/uL RBC (3.80-5.40) m/uL Hgb (11.4-16.0) gm/dL Hct (34.0-46.0) % Plt Count (150-450) k/uL Neutrophils # (1.3-7.7) k/uL PT (9.0-12.0) sec INR (<1.2) APTT (22.0-30.0) sec ABG pH (7.35-7.45) ABG pCO2 (35-45) mmHg ABG pO2 (83-108) mmHg ABG Total CO2 (19-24) mmol/L ABG O2 Saturation (94-97) % Sodium 135 L (137-145) mmol/L Chloride (98-107) mmol/L Glucose 101 H (74-99) mg/dL POC Glucose (mg/dL) 106 H 146 H (75-99) mg/dL Calcium 7.9 L (8.4-10.2) mg/dL Magnesium (1.6-2.3) mg/dL AST 62 H (14-36) U/L Alkaline Phosphatase 20 L (38-126) U/L Total Protein 4.3 L (6.3-8.2) g/dL Albumin 2.7 L (3.5-5.0) g/dL Crossmatch 10/29/20 10/29/20 10/29/20 Range/Units 07:03 08:00 09:14 WBC (3.8-10.6) k/uL RBC (3.80-5.40) m/uL Hgb (11.4-16.0) gm/dL Hct (34.0-46.0) % Plt Count (150-450) k/uL Neutrophils # (1.3-7.7) k/uL PT (9.0-12.0) sec INR (<1.2) APTT (22.0-30.0) sec ABG pH (7.35-7.45) ABG pCO2 (35-45) mmHg ABG pO2 (83-108) mmHg ABG Total CO2 (19-24) mmol/L ABG O2 Saturation (94-97) % Sodium (137-145) mmol/L Chloride (98-107) mmol/L Glucose (74-99) mg/dL POC Glucose (mg/dL) 162 H 162 H 131 H (75-99) mg/dL Calcium (8.4-10.2) mg/dL Magnesium (1.6-2.3) mg/dL AST (14-36) U/L Alkaline Phosphatase (38-126) U/L Total Protein (6.3-8.2) g/dL Albumin (3.5-5.0) g/dL Crossmatch 10/29/20 10/29/20 10/29/20 Range/Units 09:14 10:49 12:12 WBC (3.8-10.6) k/uL RBC 2.67 L (3.80-5.40) m/uL Hgb 8.0 L D (11.4-16.0) gm/dL Hct 23.6 L (34.0-46.0) % Plt Count 95 L (150-450) k/uL Neutrophils # (1.3-7.7) k/uL PT (9.0-12.0) sec INR (<1.2) APTT (22.0-30.0) sec ABG pH (7.35-7.45) ABG pCO2 (35-45) mmHg ABG pO2 (83-108) mmHg ABG Total CO2 (19-24) mmol/L ABG O2 Saturation (94-97) % Sodium (137-145) mmol/L Chloride (98-107) mmol/L Glucose (74-99) mg/dL POC Glucose (mg/dL) 121 H 105 H (75-99) mg/dL Calcium (8.4-10.2) mg/dL Magnesium (1.6-2.3) mg/dL AST (14-36) U/L Alkaline Phosphatase (38-126) U/L Total Protein (6.3-8.2) g/dL Albumin (3.5-5.0) g/dL Crossmatch Assessment and Plan Assessment: 1 Coronary artery disease status post coronary artery bypass grafting 4 utilizing the MARTINEZ to the LAD, saphenous vein grafts to the OM1, OM 3, PDA. Postoperative day #1 2 Anemia as expected outcome of surgery, status post 5 units packed red blood cells 3 History of hypertension 4 Hyperlipidemia 5 Diabetes mellitus 6 Hypothyroidism 7 Lifelong nonsmoker Plan: The patient was seen and evaluated by Dr. Richards Chest x-ray, labs reviewed Receiving her fifth unit of packed red blood cells Continue close hemodynamic monitoring Encouraged regarding the increased use the incentive spirometer and cough and deep breathing exercises Increase her activity as tolerated, continue bronchodilators We will continue to follow and make further recommendations based on her clinical status I, the cosigning physician, performed a history & physical examination of the patient. Lungs sounds with crackles in the bilateral posterior bases. Maintaining good O2 saturations in the 90s on 2 L/m per nasal cannula I discussed the assessment and plan of care with my nurse practitioner, Bharti Watson. I attest to the above note as dictated by her. Time with Patient: Greater than 30
[2020-10-29 14:40] LABS: Glucose,Whole Blood 118 mg/dL (75-99)
--- NOTE | 2020-10-29 15:42 | P.PN ---
Subjective HISTORY OF PRESENTING ILLNESS This is a pleasant 75-year-old female past medical history significant for hypertension, dyslipidemia, diabetes mellitus and chronic neck pain. She follows in the office with Dr. Duran. She underwent cardiac catheterization with Dr. Duran revealing significant damping and ostial lesion of the left main 70%, LAD 30% lesion proximally and 70% mid, circumflex with an 80% ostial lesion and RCA with 70-80% ostial lesion. She is scheduled to undergo coronary artery bypass grafting on Saturday. She is seen and examined up ambulating in the room and hallways. She denies chest pain, shortness of breath, dizziness or palpitations. She woke up again this morning with pain in her left shoulder and arm that subsided shortly after waking up. Blood pressure 110/64 heart rate 54 afebrile maintaining oxygen saturation on room air. Laboratory data reviewed, CBC unremarkable, sodium 137, potassium 4.7, creatinine 1.1. Currently maintained on aspirin 81 mg daily, atenolol 25 mg daily and atorvastatin 40 mg daily. 10/29/20 Patient seen and examined. Patient underwent successful CABG 4 with MARTINEZ to LAD, SVG to OM1, SVG to OM 3, SVG to PDA. Patient did have blood loss anemia and was transfused 1 unit packed red blood cells. She denies any chest pain however states she feels "foggy" which she attributes to prior anesthesia. She has been on a low dose of milrinone. PHYSICAL EXAMINATION CONSTITUTIONAL: No apparent distress. HEENT: Head is normocephalic. Pupils are equal, round. Sclerae anicteric. Mucous membranes of the mouth are moist. No JVD. No carotid bruit. CHEST EXAMINATION: Lungs are clear to auscultation. No chest wall tenderness is noted on palpation or with deep breathing. HEART EXAMINATION: Regular rate and rhythm. S1, S2 heard. No murmurs, gallops or rub. EXTREMITIES: 2+ peripheral pulses, no lower extremity edema and no calf tenderness. ASSESSMENT Chest pain Triple-vessel coronary artery disease s/p CABG 10/28/20 Abnormal stress test Acute kidney injury Hyperkalemia, improved Diabetes mellitus Hypertension Dyslipidemia Acute blood loss anemia Thrombocytopenia PLAN Continue aspirin, Plavix, and atorvastatin. Patient with acute blood loss anemia and has been transfuse 1 unit packed red blood cells. No source of bleeding and suspect mainly related to intraoperative blood loss. Patient has been on a low-dose of milrinone and we will continue also with low dose of metoprolol 25 twice a day. Continue supportive care. Objective - Vital Signs Vital signs: Vital Signs Temp 98.8 F 10/29/20 08:00 Pulse 96 10/29/20 14:30 Resp 22 10/29/20 14:30 BP 109/56 10/29/20 13:30 Pulse Ox 97 10/29/20 14:30 Intake & Output 10/28/20 10/29/20 10/29/20 18:59 06:59 18:59 Intake Total 2267.196 2606.487 844.445 Output Total 2450 1122 300 Balance -630.207 0620.487 544.445 Weight 82.1 kg 82.1 kg Intake: IV 980 1287 733 ACETAMINOPHEN IV (For NPO 100 100 ) 1,000 mg In Empty Bag 1 bag @ 400 mls/hr IVPB Q6HR [facility] Rx#:[id number] Albumin Human 5% 250 ml 500 250 In Empty Bag 1 bag @ 250 mls/hr IVPB Q1HR PRN Rx#: [id number] CO/CI 70 70 Lactated Ringers 1,000 ml 150 650 350 @ 20 mls/hr IV .Q24H [facility] Rx#:[id number] Magnesium 100 PRESSURE BAGS 27 117 63 ceFAZolin 2 gm In Sodium 100 100 50 Chloride 0.9% 50 ml @ 100 mls/hr IVPB Q8HR [facility] Rx# :[id number] potassium 100 Intake, IV Titration 47.196 199.487 111.445 Amount Clevidipine Butyrate 25 1.733 mg In Empty Bag 1 bag @ 1 MG/HR 2 mls/hr IV .Q24H [facility] Rx#:[id number] Insulin Regular 100 unit 7.878 102.675 54.254 In Sodium Chloride 0.9% 100 ml @ Per Protocol IV .Q0M [facility] Rx#:[id number] Milrinone-D5w Pmx 20 mg 95.079 57.191 In Dextrose/Water 1 100ml .bag @ Per Protocol IV . Q0M [facility] Rx#:[id number] Norepinephrine 4 mg In 18.96 Sodium Chloride 0.9% 250 ml @ Titrate IV .Q0M [facility] Rx#:[id number] propofoL 1,000 mg In 20.358 Empty Bag 1 bag @ Titrate IV .Q0M [facility] Rx#: [id number] Oral 500 Blood Product 1240 620 Rc As-1 Unit 310 [id number] Rc As-1 Unit 310 [id number] Rc As-1 Unit 310 [id number] Rc As-1 Unit 310 [id number] Rc As-1 Unit 310 [id number] Output: Chest Tube Drainage 110 427 90 Mediastinal 60 301 70 PLEURAL 50 126 20 Drainage 5 55 Left Thigh 5 55 Urine 835 640 210 Estimated Blood Loss 1500 Other: Voiding Method Indwelling Catheter Indwelling Catheter Indwelling Catheter ABP, PAP, CO, CI - Last Documented Arterial Blood Pressure 114/41 Pulmonary Artery Pressure 24/8 Cardiac Output 4.2 Cardiac Index 2.4 - Labs CBC & Chem 7: 10/29/20 09:14 10/29/20 03:55 Labs: Abnormal Lab Results - Last 24 Hours (Table) 10/27/20 10/28/20 10/28/20 Range/Units 08:20 15:39 15:39 WBC 12.3 H (3.8-10.6) k/uL RBC 3.04 L (3.80-5.40) m/uL Hgb 9.7 L D (11.4-16.0) gm/dL Hct 27.6 L (34.0-46.0) % Plt Count 106 L D (150-450) k/uL Neutrophils # 9.0 H (1.3-7.7) k/uL PT 13.2 H (9.0-12.0) sec INR 1.3 H (<1.2) APTT 33.4 H (22.0-30.0) sec ABG pH (7.35-7.45) ABG pCO2 (35-45) mmHg ABG pO2 (83-108) mmHg ABG Total CO2 (19-24) mmol/L ABG O2 Saturation (94-97) % Sodium (137-145) mmol/L Chloride (98-107) mmol/L Glucose (74-99) mg/dL POC Glucose (mg/dL) (75-99) mg/dL Calcium (8.4-10.2) mg/dL Magnesium (1.6-2.3) mg/dL AST (14-36) U/L Alkaline Phosphatase (38-126) U/L Total Protein (6.3-8.2) g/dL Albumin (3.5-5.0) g/dL Crossmatch See Detail 10/28/20 10/28/20 10/28/20 Range/Units 15:39 15:47 16:14 WBC (3.8-10.6) k/uL RBC (3.80-5.40) m/uL Hgb (11.4-16.0) gm/dL Hct (34.0-46.0) % Plt Count (150-450) k/uL Neutrophils # (1.3-7.7) k/uL PT (9.0-12.0) sec INR (<1.2) APTT (22.0-30.0) sec ABG pH 7.30 L (7.35-7.45) ABG pCO2 47 H (35-45) mmHg ABG pO2 397 H (83-108) mmHg ABG Total CO2 25 H (19-24) mmol/L ABG O2 Saturation 100.0 H (94-97) % Sodium (137-145) mmol/L Chloride 111 H (98-107) mmol/L Glucose 149 H (74-99) mg/dL POC Glucose (mg/dL) 195 H (75-99) mg/dL Calcium 7.7 L (8.4-10.2) mg/dL Magnesium 2.4 H (1.6-2.3) mg/dL AST 68 H (14-36) U/L Alkaline Phosphatase <20 L (38-126) U/L Total Protein 4.0 L (6.3-8.2) g/dL Albumin 2.4 L (3.5-5.0) g/dL Crossmatch 10/28/20 10/28/20 10/28/20 Range/Units 17:09 17:13 18:03 WBC (3.8-10.6) k/uL RBC (3.80-5.40) m/uL Hgb (11.4-16.0) gm/dL Hct (34.0-46.0) % Plt Count (150-450) k/uL Neutrophils # (1.3-7.7) k/uL PT (9.0-12.0) sec INR (<1.2) APTT (22.0-30.0) sec ABG pH 7.32 L (7.35-7.45) ABG pCO2 (35-45) mmHg ABG pO2 113 H (83-108) mmHg ABG Total CO2 (19-24) mmol/L ABG O2 Saturation 99.2 H (94-97) % Sodium (137-145) mmol/L Chloride (98-107) mmol/L Glucose (74-99) mg/dL POC Glucose (mg/dL) 204 H 209 H (75-99) mg/dL Calcium (8.4-10.2) mg/dL Magnesium (1.6-2.3) mg/dL AST (14-36) U/L Alkaline Phosphatase (38-126) U/L Total Protein (6.3-8.2) g/dL Albumin (3.5-5.0) g/dL Crossmatch 10/28/20 10/28/20 10/28/20 Range/Units 18:30 19:04 20:01 WBC 12.8 H (3.8-10.6) k/uL RBC 2.35 L (3.80-5.40) m/uL Hgb 7.3 L D (11.4-16.0) gm/dL Hct 21.2 L (34.0-46.0) % Plt Count 112 L (150-450) k/uL Neutrophils # 10.1 H (1.3-7.7) k/uL PT (9.0-12.0) sec INR (<1.2) APTT (22.0-30.0) sec ABG pH (7.35-7.45) ABG pCO2 (35-45) mmHg ABG pO2 (83-108) mmHg ABG Total CO2 (19-24) mmol/L ABG O2 Saturation (94-97) % Sodium (137-145) mmol/L Chloride (98-107) mmol/L Glucose (74-99) mg/dL POC Glucose (mg/dL) 218 H 223 H (75-99) mg/dL Calcium (8.4-10.2) mg/dL Magnesium (1.6-2.3) mg/dL AST (14-36) U/L Alkaline Phosphatase (38-126) U/L Total Protein (6.3-8.2) g/dL Albumin (3.5-5.0) g/dL Crossmatch 10/28/20 10/28/20 10/28/20 Range/Units 20:53 20:57 20:59 WBC (3.8-10.6) k/uL RBC 2.22 L (3.80-5.40) m/uL Hgb 6.9 L* (11.4-16.0) gm/dL Hct 20.5 L (34.0-46.0) % Plt Count 93 L (150-450) k/uL Neutrophils # 8.5 H (1.3-7.7) k/uL PT (9.0-12.0) sec INR (<1.2) APTT (22.0-30.0) sec ABG pH 7.34 L (7.35-7.45) ABG pCO2 (35-45) mmHg ABG pO2 128 H (83-108) mmHg ABG Total CO2 (19-24) mmol/L ABG O2 Saturation 99.1 H (94-97) % Sodium (137-145) mmol/L Chloride (98-107) mmol/L Glucose (74-99) mg/dL POC Glucose (mg/dL) 217 H (75-99) mg/dL Calcium (8.4-10.2) mg/dL Magnesium (1.6-2.3) mg/dL AST (14-36) U/L Alkaline Phosphatase (38-126) U/L Total Protein (6.3-8.2) g/dL Albumin (3.5-5.0) g/dL Crossmatch 10/28/20 10/28/20 10/28/20 Range/Units 22:04 22:58 23:55 WBC (3.8-10.6) k/uL RBC (3.80-5.40) m/uL Hgb (11.4-16.0) gm/dL Hct (34.0-46.0) % Plt Count (150-450) k/uL Neutrophils # (1.3-7.7) k/uL PT (9.0-12.0) sec INR (<1.2) APTT (22.0-30.0) sec ABG pH (7.35-7.45) ABG pCO2 (35-45) mmHg ABG pO2 (83-108) mmHg ABG Total CO2 (19-24) mmol/L ABG O2 Saturation (94-97) % Sodium (137-145) mmol/L Chloride (98-107) mmol/L Glucose (74-99) mg/dL POC Glucose (mg/dL) 197 H 196 H 178 H (75-99) mg/dL Calcium (8.4-10.2) mg/dL Magnesium (1.6-2.3) mg/dL AST (14-36) U/L Alkaline Phosphatase (38-126) U/L Total Protein (6.3-8.2) g/dL Albumin (3.5-5.0) g/dL Crossmatch 10/29/20 10/29/20 10/29/20 Range/Units 00:57 01:59 03:01 WBC (3.8-10.6) k/uL RBC (3.80-5.40) m/uL Hgb (11.4-16.0) gm/dL Hct (34.0-46.0) % Plt Count (150-450) k/uL Neutrophils # (1.3-7.7) k/uL PT (9.0-12.0) sec INR (<1.2) APTT (22.0-30.0) sec ABG pH (7.35-7.45) ABG pCO2 (35-45) mmHg ABG pO2 (83-108) mmHg ABG Total CO2 (19-24) mmol/L ABG O2 Saturation (94-97) % Sodium (137-145) mmol/L Chloride (98-107) mmol/L Glucose (74-99) mg/dL POC Glucose (mg/dL) 158 H 143 H 132 H (75-99) mg/dL Calcium (8.4-10.2) mg/dL Magnesium (1.6-2.3) mg/dL AST (14-36) U/L Alkaline Phosphatase (38-126) U/L Total Protein (6.3-8.2) g/dL Albumin (3.5-5.0) g/dL Crossmatch 10/29/20 10/29/20 10/29/20 Range/Units 03:52 03:55 03:55 WBC (3.8-10.6) k/uL RBC 1.97 L (3.80-5.40) m/uL Hgb 6.2 L* (11.4-16.0) gm/dL Hct 17.5 L* (34.0-46.0) % Plt Count 83 L (150-450) k/uL Neutrophils # (1.3-7.7) k/uL PT (9.0-12.0) sec INR (<1.2) APTT (22.0-30.0) sec ABG pH (7.35-7.45) ABG pCO2 (35-45) mmHg ABG pO2 (83-108) mmHg ABG Total CO2 (19-24) mmol/L ABG O2 Saturation (94-97) % Sodium 135 L (137-145) mmol/L Chloride (98-107) mmol/L Glucose 101 H (74-99) mg/dL POC Glucose (mg/dL) 116 H (75-99) mg/dL Calcium 7.9 L (8.4-10.2) mg/dL Magnesium (1.6-2.3) mg/dL AST 62 H (14-36) U/L Alkaline Phosphatase 20 L (38-126) U/L Total Protein 4.3 L (6.3-8.2) g/dL Albumin 2.7 L (3.5-5.0) g/dL Crossmatch 10/29/20 10/29/20 10/29/20 Range/Units 04:54 06:09 07:03 WBC (3.8-10.6) k/uL RBC (3.80-5.40) m/uL Hgb (11.4-16.0) gm/dL Hct (34.0-46.0) % Plt Count (150-450) k/uL Neutrophils # (1.3-7.7) k/uL PT (9.0-12.0) sec INR (<1.2) APTT (22.0-30.0) sec ABG pH (7.35-7.45) ABG pCO2 (35-45) mmHg ABG pO2 (83-108) mmHg ABG Total CO2 (19-24) mmol/L ABG O2 Saturation (94-97) % Sodium (137-145) mmol/L Chloride (98-107) mmol/L Glucose (74-99) mg/dL POC Glucose (mg/dL) 106 H 146 H 162 H (75-99) mg/dL Calcium (8.4-10.2) mg/dL Magnesium (1.6-2.3) mg/dL AST (14-36) U/L Alkaline Phosphatase (38-126) U/L Total Protein (6.3-8.2) g/dL Albumin (3.5-5.0) g/dL Crossmatch 10/29/20 10/29/20 10/29/20 Range/Units 08:00 09:14 09:14 WBC (3.8-10.6) k/uL RBC 2.67 L (3.80-5.40) m/uL Hgb 8.0 L D (11.4-16.0) gm/dL Hct 23.6 L (34.0-46.0) % Plt Count 95 L (150-450) k/uL Neutrophils # (1.3-7.7) k/uL PT (9.0-12.0) sec INR (<1.2) APTT (22.0-30.0) sec ABG pH (7.35-7.45) ABG pCO2 (35-45) mmHg ABG pO2 (83-108) mmHg ABG Total CO2 (19-24) mmol/L ABG O2 Saturation (94-97) % Sodium (137-145) mmol/L Chloride (98-107) mmol/L Glucose (74-99) mg/dL POC Glucose (mg/dL) 162 H 131 H (75-99) mg/dL Calcium (8.4-10.2) mg/dL Magnesium (1.6-2.3) mg/dL AST (14-36) U/L Alkaline Phosphatase (38-126) U/L Total Protein (6.3-8.2) g/dL Albumin (3.5-5.0) g/dL Crossmatch 10/29/20 10/29/20 10/29/20 Range/Units 10:49 12:12 14:38 WBC (3.8-10.6) k/uL RBC (3.80-5.40) m/uL Hgb (11.4-16.0) gm/dL Hct (34.0-46.0) % Plt Count (150-450) k/uL Neutrophils # (1.3-7.7) k/uL PT (9.0-12.0) sec INR (<1.2) APTT (22.0-30.0) sec ABG pH (7.35-7.45) ABG pCO2 (35-45) mmHg ABG pO2 (83-108) mmHg ABG Total CO2 (19-24) mmol/L ABG O2 Saturation (94-97) % Sodium (137-145) mmol/L Chloride (98-107) mmol/L Glucose (74-99) mg/dL POC Glucose (mg/dL) 121 H 105 H 118 H (75-99) mg/dL Calcium (8.4-10.2) mg/dL Magnesium (1.6-2.3) mg/dL AST (14-36) U/L Alkaline Phosphatase (38-126) U/L Total Protein (6.3-8.2) g/dL Albumin (3.5-5.0) g/dL Crossmatch
[2020-10-29 16:22] LABS: Glucose,Whole Blood 139 mg/dL (75-99)
[2020-10-29 17:51] LABS: Glucose,Whole Blood 123 mg/dL (75-99)
[2020-10-29 19:05] LABS: Glucose,Whole Blood 139 mg/dL (75-99)
[2020-10-29 20:04] LABS: Glucose,Whole Blood 150 mg/dL (75-99)
[2020-10-29 20:14] LABS: HCT 22.3 % (34.0-46.0); HGB 7.4 gm/dL (11.4-16.0); MCH 29.4 pg (25.0-35.0); MCHC 33.3 g/dL (31.0-37.0); MCV 88.2 fL (80.0-100.0); Mean Platelet Volume 10.1; Platelet Count 101 k/uL (150-450); Poikilocytosis Slight; RBC 2.53 m/uL (3.80-5.40); RDW 15.4 % (11.5-15.5); WBC 11.3 k/uL (3.8-10.6)
[2020-10-29] MEDS ORDERED: METOPROLOL TARTRATE 25 MG TAB PO SCH (21:00)
[2020-10-29] MEDS: SENNOSIDES-DOCUSATE SODIUM 1 EACH TAB PO SCH (21:36)
[2020-10-29 21:44] LABS: Glucose,Whole Blood 153 mg/dL (75-99)
[2020-10-29 23:55] LABS: Glucose,Whole Blood 117 mg/dL (75-99)
[2020-10-30 01:15] LABS: Glucose,Whole Blood 129 mg/dL (75-99)
[2020-10-30 01:22] LABS: HCT 21.2 % (34.0-46.0); HGB 7.4 gm/dL (11.4-16.0); MCH 31.2 pg (25.0-35.0); MCHC 34.9 g/dL (31.0-37.0); MCV 89.4 fL (80.0-100.0); Mean Platelet Volume 9.7; Poikilocytosis Slight; RBC 2.37 m/uL (3.80-5.40); RDW 15.7 % (11.5-15.5); WBC 12.9 k/uL (3.8-10.6)
[2020-10-30 01:23] LABS: Platelet Count 97 k/uL (150-450)
[2020-10-30 02:01] LABS: Glucose,Whole Blood 125 mg/dL (75-99)
[2020-10-30 03:01] LABS: Glucose,Whole Blood 120 mg/dL (75-99)
[2020-10-30 04:07] LABS: Glucose,Whole Blood 117 mg/dL (75-99)
[2020-10-30 04:20] LABS: Basophils % (A) 0 %; Eosinophils # (A) 0.1 k/uL (0-0.7); Eosinophils % (A) 1 %; HCT 20.7 % (34.0-46.0); Lymphocytes # (A) 1.8 k/uL (1.0-4.8); Lymphocytes % (A) 17 %; MCH 29.8 pg (25.0-35.0); MCHC 33.7 g/dL (31.0-37.0); MCV 88.5 fL (80.0-100.0); Mean Platelet Volume 9.4; Monocytes # (A) 0.4 k/uL (0-1.0); Monocytes % (A) 3 %; Neutrophils # (A) 8.4 k/uL (1.3-7.7); Neutrophils % (A) 78 %; Poikilocytosis Slight; RBC 2.34 m/uL (3.80-5.40); RDW 15.6 % (11.5-15.5); WBC 10.8 k/uL (3.8-10.6)
[2020-10-30 04:23] LABS: Platelet Count 95 k/uL (150-450)
[2020-10-30 04:26] LABS: Ionized Calcium 4.9 mg/dL (4.5-5.3)
[2020-10-30 04:35] LABS: Albumin 2.7 g/dL (3.5-5.0); Calcium 8.1 mg/dL (8.4-10.2); Potassium 4.4 mmol/L (3.5-5.1); Total Bilirubin 0.8 mg/dL (0.2-1.3); Total Protein 4.8 g/dL (6.3-8.2)
[2020-10-30 05:07] LABS: Glucose,Whole Blood 113 mg/dL (75-99)
[2020-10-30 06:11] LABS: Glucose,Whole Blood 123 mg/dL (75-99)
[2020-10-30] MEDS: ACETAMINOPHEN TAB 325 MG TAB PO PRN ×3 (06:13→23:10)
[2020-10-30] MEDS: LEVOTHYROXINE 112 MCG TAB PO SCH (06:13)
[2020-10-30] MEDS: PANTOPRAZOLE 40 MG TABLET PO SCH (06:14)
[2020-10-30 06:56] LABS: Glucose,Whole Blood 128 mg/dL (75-99)
[2020-10-30] MEDS: IPRATROPIUM-ALBUTEROL 3 ML NEB INHALATION SCH ×4 (07:57→20:18)
--- NOTE | 2020-10-30 08:02 | XR ---
EXAMINATION TYPE: XR chest 1V portable DATE OF EXAM: 10/30/2020 COMPARISON: Prior chest x-ray 10/29/2020 HISTORY: Postop cardiac surgery TECHNIQUE: Single frontal view of the chest is obtained. FINDINGS: Patient is post median sternotomy. Median sternal drains, left chest tube, left atrial rich endage clipping are all again noted. Patchy density persists in the lungs in the perihilar location a nd lower lobes. No evident pneumothorax. Cardiac mediastinal silhouette is stable. No evident pneumot horax. There is been interval removal of the right jugular central venous catheter. There are overlyi ng artifacts. IMPRESSION: Stable postop findings, there is likely atelectasis, exam is expiratory and rotated
[2020-10-30 08:19] LABS: Glucose,Whole Blood 127 mg/dL (75-99)
--- NOTE | 2020-10-30 09:18 | P.PN ---
Subjective Progress Note Date: 10/30/20 Principal diagnosis: Symptomatic coronary artery disease with left main disease, unstable angina. 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 Endoscopic harvesting of bilateral greater saphenous veins. Epi-aortic ultrasound and intraoperative transesophageal echocardiogram. Ligation of the left atrial appendage using a 35 mm AtriClip Postoperative acute blood loss anemia and thrombocytopenia, expected given hemodilution and cardiopulmonary bypass pump The patient is currently sitting up in the recliner in the intensive care unit in no acute distress. States pain is well-controlled on current medication regimen. Denies shortness of breath. Remains in sinus rhythm with heart rate in the high 80s to low 90s. Hemodynamically stable on no inotropes or pressors. Received 1 unit packed red cells yesterday. Right radial arterial line, mediastinal and left pleural chest tubes all remain. The patient did have an episode of brief confusion last night likely related to lack of sleep, she did inadvertently remove her Redford/Cordis. Completely oriented this morning. Objective - Vital Signs Vital signs: Vital Signs Temp 98.8 F 10/30/20 08:00 Pulse 90 10/30/20 08:07 Resp 19 10/30/20 08:00 BP 113/55 10/30/20 07:00 Pulse Ox 95 10/30/20 08:00 Intake & Output 10/29/20 10/30/20 10/30/20 18:59 06:59 18:59 Intake Total 1150.445 650.856 29 Output Total 530 700 15 Balance 620.445 -49.144 14 Weight 82.1 kg 84.1 kg Intake: IV 1039 546 29 CO/CI 90 40 Lactated Ringers 1,000 ml 550 390 20 @ 20 mls/hr IV .Q24H [facility] Rx#:[id number] Magnesium 100 PRESSURE BAGS 99 66 9 ceFAZolin 2 gm In Sodium 100 50 Chloride 0.9% 50 ml @ 100 mls/hr IVPB Q8HR [facility] Rx# :[id number] potassium 100 Intake, IV Titration 111.445 104.856 Amount Insulin Regular 100 unit 54.254 104.856 In Sodium Chloride 0.9% 100 ml @ Per Protocol IV .Q0M [facility] Rx#:[id number] Milrinone-D5w Pmx 20 mg 57.191 In Dextrose/Water 1 100ml .bag @ Per Protocol IV . Q0M [facility] Rx#:[id number] Output: Chest Tube Drainage 140 180 0 Mediastinal 110 90 0 PLEURAL 30 90 0 Drainage 50 65 Left Thigh 50 65 Urine 340 455 15 Other: Voiding Method Indwelling Catheter Indwelling Catheter ABP, PAP, CO, CI - Last Documented Arterial Blood Pressure 139/45 Pulmonary Artery Pressure 30/12 Cardiac Output 3.7 Cardiac Index 2.2 - Constitutional General appearance: Present: cooperative, no acute distress, obese - Respiratory Details: Lungs sounds diminished in the bases bilaterally. Respirations even, nonlabored. Currently on 2 L nasal cannula with oxygen saturation 97%. Able to achieve 500-750 mL on her incentive spirometry. Strong cough. Mediastinal chest tubes present to continuous wall suction, 40 milliliters serosanguineous drainage overnight, 200 mL in the last 24 hours. Left pleural chest tube present to continuous wall suction, 50 mL serosanguineous drainage overnight, 170 mL in the last 24 hours. No air leaks present. - Cardiovascular Details: S1, S2 present. Regular rate and rhythm, sinus rhythm on telemetry with heart rate in the high 80s to low 90s. Sternum stable. A/V epicardial pacemaker wires present, grounded. Palpable peripheral pulses bilaterally. Trace upper extremity edema present. No calf pain or tenderness noted. Heart hugger in place with patient demonstrating appropriate use. Antiembolism stockings, SCDs present. Right radial arterial line present. - Gastrointestinal Gastrointestinal Comment(s): Abdomen soft, nontender, nondistended. Hypoactive bowel sounds present 4 quadrants. Tolerating minimal diet. Negative flatus - Genitourinary Genitourinary Comment(s): Hernandez present draining clear, yellow urine. Output 35-40 mL per hour overnight, done to 15-20 mL per hour this morning - Integumentary Integumentary Comment(s): Skin is warm and dry with evidence of good perfusion. Anterior chest incision well approximated and covered with dry intact dressing. Left lower extremity EVH site well approximated, MILADIS drain present with 145 mL output in the last 24 hours. - Neurologic Neurologic: Present: CNII-XII intact - Musculoskeletal Musculoskeletal: Present: generalized weakness, strength equal bilaterally - Psychiatric Psychiatric Comment(s): Flat affect Psychiatric: Present: A&O x's 3 - Allied health notes Allied health notes reviewed: nursing - Labs CBC & Chem 7: 10/30/20 04:00 10/30/20 04:00 Labs: Abnormal Lab Results - Last 24 Hours (Table) 10/27/20 10/29/20 10/29/20 Range/Units 08:20 09:14 09:14 WBC (3.8-10.6) k/uL RBC 2.67 L (3.80-5.40) m/uL Hgb 8.0 L D (11.4-16.0) gm/dL Hct 23.6 L (34.0-46.0) % RDW (11.5-15.5) % Plt Count 95 L (150-450) k/uL Neutrophils # (1.3-7.7) k/uL Sodium (137-145) mmol/L BUN (7-17) mg/dL Glucose (74-99) mg/dL POC Glucose (mg/dL) 131 H (75-99) mg/dL Calcium (8.4-10.2) mg/dL AST (14-36) U/L Alkaline Phosphatase (38-126) U/L Total Protein (6.3-8.2) g/dL Albumin (3.5-5.0) g/dL Crossmatch See Detail 10/29/20 10/29/20 10/29/20 Range/Units 10:49 12:12 14:38 WBC (3.8-10.6) k/uL RBC (3.80-5.40) m/uL Hgb (11.4-16.0) gm/dL Hct (34.0-46.0) % RDW (11.5-15.5) % Plt Count (150-450) k/uL Neutrophils # (1.3-7.7) k/uL Sodium (137-145) mmol/L BUN (7-17) mg/dL Glucose (74-99) mg/dL POC Glucose (mg/dL) 121 H 105 H 118 H (75-99) mg/dL Calcium (8.4-10.2) mg/dL AST (14-36) U/L Alkaline Phosphatase (38-126) U/L Total Protein (6.3-8.2) g/dL Albumin (3.5-5.0) g/dL Crossmatch 10/29/20 10/29/20 10/29/20 Range/Units 16:11 17:49 19:04 WBC (3.8-10.6) k/uL RBC (3.80-5.40) m/uL Hgb (11.4-16.0) gm/dL Hct (34.0-46.0) % RDW (11.5-15.5) % Plt Count (150-450) k/uL Neutrophils # (1.3-7.7) k/uL Sodium (137-145) mmol/L BUN (7-17) mg/dL Glucose (74-99) mg/dL POC Glucose (mg/dL) 139 H 123 H 139 H (75-99) mg/dL Calcium (8.4-10.2) mg/dL AST (14-36) U/L Alkaline Phosphatase (38-126) U/L Total Protein (6.3-8.2) g/dL Albumin (3.5-5.0) g/dL Crossmatch 10/29/20 10/29/20 10/29/20 Range/Units 20:00 20:03 21:43 WBC 11.3 H (3.8-10.6) k/uL RBC 2.53 L (3.80-5.40) m/uL Hgb 7.4 L (11.4-16.0) gm/dL Hct 22.3 L (34.0-46.0) % RDW (11.5-15.5) % Plt Count 101 L (150-450) k/uL Neutrophils # (1.3-7.7) k/uL Sodium (137-145) mmol/L BUN (7-17) mg/dL Glucose (74-99) mg/dL POC Glucose (mg/dL) 150 H 153 H (75-99) mg/dL Calcium (8.4-10.2) mg/dL AST (14-36) U/L Alkaline Phosphatase (38-126) U/L Total Protein (6.3-8.2) g/dL Albumin (3.5-5.0) g/dL Crossmatch 10/29/20 10/30/20 10/30/20 Range/Units 23:53 01:13 01:15 WBC 12.9 H (3.8-10.6) k/uL RBC 2.37 L (3.80-5.40) m/uL Hgb 7.4 L (11.4-16.0) gm/dL Hct 21.2 L (34.0-46.0) % RDW 15.7 H (11.5-15.5) % Plt Count 97 L (150-450) k/uL Neutrophils # (1.3-7.7) k/uL Sodium (137-145) mmol/L BUN (7-17) mg/dL Glucose (74-99) mg/dL POC Glucose (mg/dL) 117 H 129 H (75-99) mg/dL Calcium (8.4-10.2) mg/dL AST (14-36) U/L Alkaline Phosphatase (38-126) U/L Total Protein (6.3-8.2) g/dL Albumin (3.5-5.0) g/dL Crossmatch 10/30/20 10/30/20 10/30/20 Range/Units 01:58 02:59 04:00 WBC 10.8 H (3.8-10.6) k/uL RBC 2.34 L (3.80-5.40) m/uL Hgb 7.0 L (11.4-16.0) gm/dL Hct 20.7 L (34.0-46.0) % RDW 15.6 H (11.5-15.5) % Plt Count 95 L (150-450) k/uL Neutrophils # 8.4 H (1.3-7.7) k/uL Sodium (137-145) mmol/L BUN (7-17) mg/dL Glucose (74-99) mg/dL POC Glucose (mg/dL) 125 H 120 H (75-99) mg/dL Calcium (8.4-10.2) mg/dL AST (14-36) U/L Alkaline Phosphatase (38-126) U/L Total Protein (6.3-8.2) g/dL Albumin (3.5-5.0) g/dL Crossmatch 10/30/20 10/30/20 10/30/20 Range/Units 04:00 04:05 05:06 WBC (3.8-10.6) k/uL RBC (3.80-5.40) m/uL Hgb (11.4-16.0) gm/dL Hct (34.0-46.0) % RDW (11.5-15.5) % Plt Count (150-450) k/uL Neutrophils # (1.3-7.7) k/uL Sodium 132 L (137-145) mmol/L BUN 21 H (7-17) mg/dL Glucose 104 H (74-99) mg/dL POC Glucose (mg/dL) 117 H 113 H (75-99) mg/dL Calcium 8.1 L (8.4-10.2) mg/dL AST 110 H (14-36) U/L Alkaline Phosphatase 28 L (38-126) U/L Total Protein 4.8 L (6.3-8.2) g/dL Albumin 2.7 L (3.5-5.0) g/dL Crossmatch 10/30/20 10/30/20 10/30/20 Range/Units 06:10 06:54 08:07 WBC (3.8-10.6) k/uL RBC (3.80-5.40) m/uL Hgb (11.4-16.0) gm/dL Hct (34.0-46.0) % RDW (11.5-15.5) % Plt Count (150-450) k/uL Neutrophils # (1.3-7.7) k/uL Sodium (137-145) mmol/L BUN (7-17) mg/dL Glucose (74-99) mg/dL POC Glucose (mg/dL) 123 H 128 H 127 H (75-99) mg/dL Calcium (8.4-10.2) mg/dL AST (14-36) U/L Alkaline Phosphatase (38-126) U/L Total Protein (6.3-8.2) g/dL Albumin (3.5-5.0) g/dL Crossmatch - Imaging and Cardiology Chest x-ray: report reviewed, image reviewed Assessment and Plan Assessment: 1. Symptomatic coronary artery disease with left main disease, unstable angina, status post four-vessel CABG 2. Hyperkalemia on admission, resolved 3. Acute kidney injury 4. Hypertension 5. Hyperlipidemia, treated, cholesterol 124, LDL 71 6. [id number] diabetes with A1c 6.5% 7. Hypothyroid 8. Obesity 9. 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 Never smoker, FEV1 102% of predicted 11. Family history of premature coronary artery disease with a brother having stents at less than 55 years old 12. Postoperative acute blood loss anemia and thrombocytopenia, expected Plan: 1. Continue low dose ASA, statin, Plavix, beta sobeida therapy. Will increase beta sobeida therapy as tolerated, increased to 50 mg twice daily today 2. Wean O2 as tolerated. Encourage incentive spirometry use 10 times every hour while awake. Bronchodilators per pulmonology 3. Increase activity, ambulate as tolerated. PT/OT/cardiac rehab following 4. Will monitor daily labs and a chest x-rays. Electrolyte replacement per protocol. Will transfuse 1 unit packed red blood cells today. No Lasix 5. Encourage oral intake. Supplements ordered. 6. Insulin management per primary care service 7. Pain control with current medication regimen. No narcotics 8. Will discontinue mediastinal chest tube. Will continue arterial line, left pleural chest tube, MILADIS drain for another 24 hours. 9. Discontinue Hernandez this afternoon. May later scan and straight cath for greater than 300 mL residual 10. Strict accurate intake and output. Daily weights. 11. Continue to encourage risk factor modification 12. More recommendations to follow based on patient's progress Time with Patient: Greater than 30
[2020-10-30 09:30] LABS: Glucose,Whole Blood 132 mg/dL (75-99)
[2020-10-30] MEDS: HEPARIN SODIUM,PORCINE 5,000 UNIT/ML 1 ML VIAL SQ SCH ×3 (09:33→23:59)
[2020-10-30] MEDS: CLOPIDOGREL 75 MG TAB PO SCH (09:33)
[2020-10-30] MEDS: ASPIRIN 81 MG PO SCH (09:33)
[2020-10-30] MEDS: ATORVASTATIN 40 MG TAB PO SCH (09:33)
[2020-10-30] MEDS: METOPROLOL TARTRATE 50 MG TAB PO SCH ×2 (09:33→20:27)
[2020-10-30 10:03] LABS: Glucose,Whole Blood 128 mg/dL (75-99)
[2020-10-30 11:15] LABS: Glucose,Whole Blood 154 mg/dL (75-99)
[2020-10-30 12:03] LABS: Glucose,Whole Blood 167 mg/dL (75-99)
--- NOTE | 2020-10-30 12:06 | P.PN ---
Subjective Progress Note Date: 10/30/20 Principal diagnosis: Coronary artery disease. Postop day 2 coronary artery bypass 4 vessel Very pleasant 5-year-old female was noted to have abnormal stress test back in August 2020. She was recommended that time by cardiology to undergo a cardiac catheterization, but the threat of Covid was too overwhelming for her to have it done. On 10/14/2020 she developed left arm pain and was accompanied with numbness and pressure on the left upper chest. The symptoms prompted her to present to the emergency room. EKG at that time reported sinus rhythm, inferior infarct age undetermined, troponins negative 3, chest x-ray reported no acute cardiopulmonary process. Patient was evaluated by cardiology and was determined need to be cath the next day. The cardiac cath revealed left main stenosis of 70%, mid LAD had 70% stenosis, circumflex 70-80% stenosed and RCA 7080% steno sis. Cardiothoracic surgery was counseled regarding CABG and was eventually scheduled for 10/28/2020. 10/30/2020 patient is postop day 2 for four-vessel CABG. She is alert and resting comfortably in chair at bedside. Currently denies headache, difficulty breathing or shortness of breath, chest pain or pressure, nausea or vomiting. In the middle of the night last night she developed some confusion and DC'd her own Penrose and Cordis, but is alert and oriented 3 at this time and states she's not sure why she did that. She also mentions that she has minimal if any sternal pain at this time and the only pain that she is feeling as those produced by the chest tubes. Which currently she has 2 mediastinal and left pleural tube and is my understanding that the 2 mediastinal chest tubes will be DC'd shortly. Most recent CBC reveals WBC count 10.8, hemoglobin of 7.0, hematocrit 20.7, platelet count of 95. They're in the process of transfusing 1 unit of packed RBCs for at this time which should make this #6 for overall stay. Chemistry reveals a sodium 132, potassium 4.4, P1 at 21, creatinine of 0.99, glucose 104, AST of 110, ALT of 13. Objective - Vital Signs Vital signs: Vital Signs Temp 100.2 F H 10/30/20 11:25 Pulse 93 10/30/20 11:37 Resp 20 10/30/20 11:25 BP 128/45 10/30/20 11:25 Pulse Ox 96 10/30/20 11:25 Intake & Output 10/29/20 10/30/20 10/30/20 18:59 06:59 18:59 Intake Total 1150.445 650.856 192.747 Output Total 530 700 80 Balance 620.445 -49.144 112.747 Weight 82.1 kg 84.1 kg Intake: IV 1039 546 166 CO/CI 90 40 Lactated Ringers 1,000 ml 550 390 80 @ 20 mls/hr IV .Q24H [facility] Rx#:[id number] Magnesium 100 PRESSURE BAGS 99 66 36 ceFAZolin 2 gm In Sodium 100 50 50 Chloride 0.9% 50 ml @ 100 mls/hr IVPB Q8HR [facility] Rx# :[id number] potassium 100 Intake, IV Titration 111.445 104.856 26.747 Amount Insulin Regular 100 unit 54.254 104.856 26.747 In Sodium Chloride 0.9% 100 ml @ Per Protocol IV .Q0M [facility] Rx#:[id number] Milrinone-D5w Pmx 20 mg 57.191 In Dextrose/Water 1 100ml .bag @ Per Protocol IV . Q0M [facility] Rx#:[id number] Blood Product 0 Rc As-1 Unit 0 [id number] Output: Chest Tube Drainage 140 180 20 Mediastinal 110 90 0 PLEURAL 30 90 20 Drainage 50 65 Left Thigh 50 65 Urine 340 455 60 Other: Voiding Method Indwelling Catheter Indwelling Catheter ABP, PAP, CO, CI - Last Documented Arterial Blood Pressure 130/50 Pulmonary Artery Pressure 30/12 Cardiac Output 3.7 Cardiac Index 2.2 - Exam GENERAL: Well-appearing, well-nourished and in no acute distress, patient alert but slow to answer questions. HEAD: Atraumatic, normocephalic. EYES: Pupils equal round and reactive to light, extraocular movements intact, sclera anicteric, conjunctiva are normal. ENT:nares patent, oropharynx clear without exudates. Moist mucous membranes. NECK: Normal range of motion, supple without lymphadenopathy or JVD, no thyromegaly LUNGS: Breath sounds diminished with fine basilar crackles. HEART: Regular rate and rhythm without murmurs, rubs or gallops.S1S2 Normal ABDOMEN: Soft, nontender, normoactive bowel sounds. No guarding, no rebound. No masses appreciated. EXTREMITIES: Normal range of motion, no pitting or edema. No clubbing or cyanosis, mild ecchymosis noted on the inner thigh of right leg, leg is tender with deep palpation. NEUROLOGICAL: Cranial nerves II through XII grossly intact. Normal speech, normal gait. PSYCH: Normal mood, flat affect, alert and oriented 3 SKIN: Warm, Dry, normal turgor, no rashes or lesions noted, 2 mediastinal chest tubes, one left pleural chest tube, MILADIS drain located in left lower extremity. - Labs CBC & Chem 7: 10/30/20 04:00 10/30/20 04:00 Labs: Abnormal Lab Results - Last 24 Hours (Table) 10/27/20 10/29/20 10/29/20 Range/Units 08:20 12:12 14:38 WBC (3.8-10.6) k/uL RBC (3.80-5.40) m/uL Hgb (11.4-16.0) gm/dL Hct (34.0-46.0) % RDW (11.5-15.5) % Plt Count (150-450) k/uL Neutrophils # (1.3-7.7) k/uL Sodium (137-145) mmol/L BUN (7-17) mg/dL Glucose (74-99) mg/dL POC Glucose (mg/dL) 105 H 118 H (75-99) mg/dL Calcium (8.4-10.2) mg/dL AST (14-36) U/L Alkaline Phosphatase (38-126) U/L Total Protein (6.3-8.2) g/dL Albumin (3.5-5.0) g/dL Crossmatch See Detail 10/29/20 10/29/20 10/29/20 Range/Units 16:11 17:49 19:04 WBC (3.8-10.6) k/uL RBC (3.80-5.40) m/uL Hgb (11.4-16.0) gm/dL Hct (34.0-46.0) % RDW (11.5-15.5) % Plt Count (150-450) k/uL Neutrophils # (1.3-7.7) k/uL Sodium (137-145) mmol/L BUN (7-17) mg/dL Glucose (74-99) mg/dL POC Glucose (mg/dL) 139 H 123 H 139 H (75-99) mg/dL Calcium (8.4-10.2) mg/dL AST (14-36) U/L Alkaline Phosphatase (38-126) U/L Total Protein (6.3-8.2) g/dL Albumin (3.5-5.0) g/dL Crossmatch 10/29/20 10/29/20 10/29/20 Range/Units 20:00 20:03 21:43 WBC 11.3 H (3.8-10.6) k/uL RBC 2.53 L (3.80-5.40) m/uL Hgb 7.4 L (11.4-16.0) gm/dL Hct 22.3 L (34.0-46.0) % RDW (11.5-15.5) % Plt Count 101 L (150-450) k/uL Neutrophils # (1.3-7.7) k/uL Sodium (137-145) mmol/L BUN (7-17) mg/dL Glucose (74-99) mg/dL POC Glucose (mg/dL) 150 H 153 H (75-99) mg/dL Calcium (8.4-10.2) mg/dL AST (14-36) U/L Alkaline Phosphatase (38-126) U/L Total Protein (6.3-8.2) g/dL Albumin (3.5-5.0) g/dL Crossmatch 10/29/20 10/30/20 10/30/20 Range/Units 23:53 01:13 01:15 WBC 12.9 H (3.8-10.6) k/uL RBC 2.37 L (3.80-5.40) m/uL Hgb 7.4 L (11.4-16.0) gm/dL Hct 21.2 L (34.0-46.0) % RDW 15.7 H (11.5-15.5) % Plt Count 97 L (150-450) k/uL Neutrophils # (1.3-7.7) k/uL Sodium (137-145) mmol/L BUN (7-17) mg/dL Glucose (74-99) mg/dL POC Glucose (mg/dL) 117 H 129 H (75-99) mg/dL Calcium (8.4-10.2) mg/dL AST (14-36) U/L Alkaline Phosphatase (38-126) U/L Total Protein (6.3-8.2) g/dL Albumin (3.5-5.0) g/dL Crossmatch 10/30/20 10/30/20 10/30/20 Range/Units 01:58 02:59 04:00 WBC 10.8 H (3.8-10.6) k/uL RBC 2.34 L (3.80-5.40) m/uL Hgb 7.0 L (11.4-16.0) gm/dL Hct 20.7 L (34.0-46.0) % RDW 15.6 H (11.5-15.5) % Plt Count 95 L (150-450) k/uL Neutrophils # 8.4 H (1.3-7.7) k/uL Sodium (137-145) mmol/L BUN (7-17) mg/dL Glucose (74-99) mg/dL POC Glucose (mg/dL) 125 H 120 H (75-99) mg/dL Calcium (8.4-10.2) mg/dL AST (14-36) U/L Alkaline Phosphatase (38-126) U/L Total Protein (6.3-8.2) g/dL Albumin (3.5-5.0) g/dL Crossmatch 10/30/20 10/30/20 10/30/20 Range/Units 04:00 04:05 05:06 WBC (3.8-10.6) k/uL RBC (3.80-5.40) m/uL Hgb (11.4-16.0) gm/dL Hct (34.0-46.0) % RDW (11.5-15.5) % Plt Count (150-450) k/uL Neutrophils # (1.3-7.7) k/uL Sodium 132 L (137-145) mmol/L BUN 21 H (7-17) mg/dL Glucose 104 H (74-99) mg/dL POC Glucose (mg/dL) 117 H 113 H (75-99) mg/dL Calcium 8.1 L (8.4-10.2) mg/dL AST 110 H (14-36) U/L Alkaline Phosphatase 28 L (38-126) U/L Total Protein 4.8 L (6.3-8.2) g/dL Albumin 2.7 L (3.5-5.0) g/dL Crossmatch 10/30/20 10/30/20 10/30/20 Range/Units 06:10 06:54 08:07 WBC (3.8-10.6) k/uL RBC (3.80-5.40) m/uL Hgb (11.4-16.0) gm/dL Hct (34.0-46.0) % RDW (11.5-15.5) % Plt Count (150-450) k/uL Neutrophils # (1.3-7.7) k/uL Sodium (137-145) mmol/L BUN (7-17) mg/dL Glucose (74-99) mg/dL POC Glucose (mg/dL) 123 H 128 H 127 H (75-99) mg/dL Calcium (8.4-10.2) mg/dL AST (14-36) U/L Alkaline Phosphatase (38-126) U/L Total Protein (6.3-8.2) g/dL Albumin (3.5-5.0) g/dL Crossmatch 10/30/20 10/30/20 10/30/20 Range/Units 09:29 10:01 11:04 WBC (3.8-10.6) k/uL RBC (3.80-5.40) m/uL Hgb (11.4-16.0) gm/dL Hct (34.0-46.0) % RDW (11.5-15.5) % Plt Count (150-450) k/uL Neutrophils # (1.3-7.7) k/uL Sodium (137-145) mmol/L BUN (7-17) mg/dL Glucose (74-99) mg/dL POC Glucose (mg/dL) 132 H 128 H 154 H (75-99) mg/dL Calcium (8.4-10.2) mg/dL AST (14-36) U/L Alkaline Phosphatase (38-126) U/L Total Protein (6.3-8.2) g/dL Albumin (3.5-5.0) g/dL Crossmatch Assessment and Plan (1) Chest pain Current Visit: Yes Status: Acute Code(s): R07.9 - CHEST PAIN, UNSPECIFIED SNOMED Code(s): 56584918 (2) Coronary artery 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 Current Visit: Yes Status: Acute Code(s): E11.59 - TYPE 2 DIABETES MELLITUS WITH OTH CIRCULATORY COMPLICATIONS; I25.10 - ATHSCL HEART DISEASE OF [place] CORONARY ARTERY W/O ANG PCTRS SNOMED Code(s): 31436110690955807 (3) H/O four vessel coronary artery bypass graft Current Visit: Yes Status: Acute Code(s): Z95.1 - PRESENCE OF AORTOCORONARY BYPASS GRAFT SNOMED Code(s): 046986618 (4) Hypertension Current Visit: Yes Status: Acute Code(s): I10 - ESSENTIAL (PRIMARY) HYPERTENSION SNOMED Code(s): 26784656 Plan: 1. Continue current medication regimen. 2. Surgery okay for transition from continuous insulin drip to sliding scale. We will utilize before meals and at bedtime and 2 AM with coverage. 3. Encourage incentive spirometry minimally 10 times an hour while awake. 4. We'll increase activity as tolerated. 5. We'll continue to monitor mentation and will refrain from narcotic use as much as possible. 6. We'll encourage increased caloric intake. 7. We continue to monitor labs and vitals and treat accordingly. 8. We'll reevaluate again tomorrow Time with Patient: Greater than 30
--- NOTE | 2020-10-30 12:10 | P.PN ---
Subjective Progress Note Date: 10/30/20 Principal diagnosis: Coronary artery disease, status post coronary artery bypass grafting 4 75-year-old female who presented to the emergency department on October 24 at 8:00 in the morning. She apparently had chest tightness and pain. It began at 3 AM in the morning and occurred for about 5 hours before she arrived to the emergency department. The pain apparently was also noted in the left arm, and she had chest tightness as well as pain. She had no nausea, vomiting, or diaphoresis. She apparently did have an abnormal stress test in the fall, and it was recommended at that time that she have a cardiac catheterization. Her initial plan was to go down to [place]. She was given a prescription and the time down there and then come back in January and have her heart catheterization at that time. Apparently family members talked her out of it and she decided to have a heart catheterization done right away. The heart catheterization revealed a 70% occlusion in the left main, 70% occlusion in the left anterior descending coronary artery, 70% to 80% occlusion and the circumflex coronary artery and a 70% occlusion and the right coronary artery. Bypass grafting was recommended by cardiology. She apparently is going to have surgery on Saturday. We were asked to see her in preop evaluation. She does not have any history of any lung issues. She is a lifelong nonsmoker. She denies any emphysema, chronic bronchitis, asthma, or COPD. Her lung function were quite good. Her FEV1 percent was 102%. She does carry with her diagnosis of hypertension, diabetes, hyperlipidemia, and hypothyroidism. Progress note dated 10/27/2020 75-year-old female with anticipated bypass grafting tomorrow. The surgery will be done by Dr. Mills. Currently, the patient seemed be doing relatively well. The patient is not receiving any supplemental oxygen. The patient is currently not receiving any IV fluids. The patient has had no further chest pain. She is resting comfortably. In fact we went to see her today, she was walking the hallway. Her catheterization rev ealed a 70% occlusion of the left main coronary artery, a 70% occlusion in the left anterior descending coronary artery, 70-80% occlusion in the circumflex coronary artery and a 70% occlusion in the right coronary artery. Her preoperative lung function were excellent. She is a lifelong nonsmoker. She denies any history of COPD, emphysema, chronic bronchitis, asthma, or any lung condition. She should do well. The patient is seen today 10/28/2020 in the immediate postoperative setting in the ICU. She is now status post coronary artery bypass grafting 4 utilizing the MARTINEZ to the LAD, SVGs to the OM1, OM 3, PDA. Postoperative day #0. She is currently intubated on mechanical ventilator with assist-control mode at a rate of 12, tidal volume 350, FiO2 100% and a PEEP of 10. Arterial blood gases reveal a pO2 of 397, pCO2 47, pH 7.30. She is currently sedated on propofol at 20 mcg/kg/m, lactated Ringer's at 50 ML's per hour. She is requiring norepinephrine at 0.02 mcg/kg/m, nitroglycerin at 5 mcg/m, milrinone at 0.3 mcg/kg/m. She is currently in normal sinus rhythm. Cardiac output 2.3. Cardiac index 1.3. PA pressures 36/25. There is a left pleural chest tube in place, mediastinal chest tubes 2. She is status post 4 units of packed red blood cells. One unit of platelets pending. Current hemoglobin 9.7. Platelet count 106. White count 12.3. INR 1.3. Sodium 138. Potassium 4.7. Creatinine 0.74. AST 60. ALT 15. Albumin 2.4. Initiated on bronchodilators. Chest x- ray reveals trace left apical pneumothorax measuring 1.1 cm. Mild pulmonary vascular congestion. Epicardial pacer leads in place. The patient is seen today 10/29/2020 in follow-up in the intensive care unit. She is awake and alert in no acute distress. Currently sitting up in a chair at the bedside. Maintaining O2 saturation in the 90s on 2 L/m per nasal cannula. She was extubated yesterday within the 6 hour window postop. She is still requiring Primacor at 0.2 mcg/kg/m. She's on insulin drip at 10 units per hour. She is receiving her fifth unit of packed red blood cells this admission. This morning's hemoglobin was 6.2. Post transfusion currently at 8.0. White count 9.8. Platelets 95,000. Sodium 135. Potassium 3.5. Creatinine 0.86. Chest x- ray reveals no evidence of pneumothorax or pleural effusion. Some patchy bilateral density persists with some residual atelectatic changes. Mediastinal 2 and left pleural chest tube in place. Right-sided CVP in place. She remains on bronchodilators. Working well with the incentive spirometer. Receiving cefazolin. Heparin for DVT prophylaxis. The patient is seen today 10/30/2020 up in the intensive care unit. She is currently sitting up in a chair at the bedside. Awake and alert in no acute distress. She did have some confusion last evening and pulled out her [place]-Claudia catheter. She is oriented 3 this morning. She is maintaining good O2 saturation in the 90s on 2 L/m per nasal cannula. She has lactated Ringer's at 20 ML's per hour. Insulin at 3 units per hour. She does remain anemic with a hemoglobin of 7.0. She will be receiving her sixth unit of packed red blood cells today. No active bleeding noted. Chest tube drainage minimal. Mediastinal tubes coming out today. Chest x-ray reveals postoperative changes and some basilar atelectasis. She is only pulling 500-750 on the incentive spirometer. She remains on bronchodilators. White count 10.8. Hemoglobin 7.0. Platelet count 95,000. Sodium 132. Potassium 4.4. Creatinine 0.99. Albumin 2.7. Core temperature 100.2. Objective - Vital Signs Vital signs: Vital Signs Temp 100.2 F H 10/30/20 11:25 Pulse 93 10/30/20 11:37 Resp 20 10/30/20 11:25 BP 128/45 10/30/20 11:25 Pulse Ox 96 10/30/20 11:25 Intake & Output 10/29/20 10/30/20 10/30/20 18:59 06:59 18:59 Intake Total 1150.445 650.856 192.747 Output Total 530 700 80 Balance 620.445 -49.144 112.747 Weight 82.1 kg 84.1 kg Intake: IV 1039 546 166 CO/CI 90 40 Lactated Ringers 1,000 ml 550 390 80 @ 20 mls/hr IV .Q24H [facility] Rx#:[id number] Magnesium 100 PRESSURE BAGS 99 66 36 ceFAZolin 2 gm In Sodium 100 50 50 Chloride 0.9% 50 ml @ 100 mls/hr IVPB Q8HR [facility] Rx# :[id number] potassium 100 Intake, IV Titration 111.445 104.856 26.747 Amount Insulin Regular 100 unit 54.254 104.856 26.747 In Sodium Chloride 0.9% 100 ml @ Per Protocol IV .Q0M [facility] Rx#:[id number] Milrinone-D5w Pmx 20 mg 57.191 In Dextrose/Water 1 100ml .bag @ Per Protocol IV . Q0M [facility] Rx#:[id number] Blood Product 0 Rc As-1 Unit 0 [id number] Output: Chest Tube Drainage 140 180 20 Mediastinal 110 90 0 PLEURAL 30 90 20 Drainage 50 65 Left Thigh 50 65 Urine 340 455 60 Other: Voiding Method Indwelling Catheter Indwelling Catheter ABP, PAP, CO, CI - Last Documented Arterial Blood Pressure 130/50 Pulmonary Artery Pressure 30/12 Cardiac Output 3.7 Cardiac Index 2.2 - Exam GENERAL EXAM: Awake, alert, pale 75-year-old female patient, up in a chair at the bedside, on 2 L/m per nasal cannula, fairly comfortable in no apparent distress. HEAD: Normocephalic. EYES: Normal reaction of pupils, equal size. NOSE: Clear with pink turbinates. THROAT: No erythema or exudates. NECK: No masses, no JVD. CHEST: Sternal dressing dry and intact, Heart hugger in place. Pacer wires in place. Left pleural and mediastinal chest tubes in place. LUNGS: Equal air entry with crackles in the bilateral posterior bases. CVS: S1 and S2 normal with no audible murmur, regular rhythm. ABDOMEN: No hepatosplenomegaly, bowel sounds, no guarding or rigidity. SPINE: No scoliosis or deformity SKIN: No rashes CENTRAL NERVOUS SYSTEM: Sedated. No focal deficits, tone is normal in all 4 extremities. EXTREMITIES: There is trace peripheral edema. MILADIS drain in place. No clubbing, no cyanosis. Peripheral pulses are intact. - Labs CBC & Chem 7: 10/30/20 04:00 10/30/20 04:00 Labs: Abnormal Lab Results - Last 24 Hours (Table) 10/27/20 10/29/20 10/29/20 Range/Units 08:20 12:12 14:38 WBC (3.8-10.6) k/uL RBC (3.80-5.40) m/uL Hgb (11.4-16.0) gm/dL Hct (34.0-46.0) % RDW (11.5-15.5) % Plt Count (150-450) k/uL Neutrophils # (1.3-7.7) k/uL Sodium (137-145) mmol/L BUN (7-17) mg/dL Glucose (74-99) mg/dL POC Glucose (mg/dL) 105 H 118 H (75-99) mg/dL Calcium (8.4-10.2) mg/dL AST (14-36) U/L Alkaline Phosphatase (38-126) U/L Total Protein (6.3-8.2) g/dL Albumin (3.5-5.0) g/dL Crossmatch See Detail 10/29/20 10/29/20 10/29/20 Range/Units 16:11 17:49 19:04 WBC (3.8-10.6) k/uL RBC (3.80-5.40) m/uL Hgb (11.4-16.0) gm/dL Hct (34.0-46.0) % RDW (11.5-15.5) % Plt Count (150-450) k/uL Neutrophils # (1.3-7.7) k/uL Sodium (137-145) mmol/L BUN (7-17) mg/dL Glucose (74-99) mg/dL POC Glucose (mg/dL) 139 H 123 H 139 H (75-99) mg/dL Calcium (8.4-10.2) mg/dL AST (14-36) U/L Alkaline Phosphatase (38-126) U/L Total Protein (6.3-8.2) g/dL Albumin (3.5-5.0) g/dL Crossmatch 10/29/20 10/29/20 10/29/20 Range/Units 20:00 20:03 21:43 WBC 11.3 H (3.8-10.6) k/uL RBC 2.53 L (3.80-5.40) m/uL Hgb 7.4 L (11.4-16.0) gm/dL Hct 22.3 L (34.0-46.0) % RDW (11.5-15.5) % Plt Count 101 L (150-450) k/uL Neutrophils # (1.3-7.7) k/uL Sodium (137-145) mmol/L BUN (7-17) mg/dL Glucose (74-99) mg/dL POC Glucose (mg/dL) 150 H 153 H (75-99) mg/dL Calcium (8.4-10.2) mg/dL AST (14-36) U/L Alkaline Phosphatase (38-126) U/L Total Protein (6.3-8.2) g/dL Albumin (3.5-5.0) g/dL Crossmatch 10/29/20 10/30/20 10/30/20 Range/Units 23:53 01:13 01:15 WBC 12.9 H (3.8-10.6) k/uL RBC 2.37 L (3.80-5.40) m/uL Hgb 7.4 L (11.4-16.0) gm/dL Hct 21.2 L (34.0-46.0) % RDW 15.7 H (11.5-15.5) % Plt Count 97 L (150-450) k/uL Neutrophils # (1.3-7.7) k/uL Sodium (137-145) mmol/L BUN (7-17) mg/dL Glucose (74-99) mg/dL POC Glucose (mg/dL) 117 H 129 H (75-99) mg/dL Calcium (8.4-10.2) mg/dL AST (14-36) U/L Alkaline Phosphatase (38-126) U/L Total Protein (6.3-8.2) g/dL Albumin (3.5-5.0) g/dL Crossmatch 10/30/20 10/30/20 10/30/20 Range/Units 01:58 02:59 04:00 WBC 10.8 H (3.8-10.6) k/uL RBC 2.34 L (3.80-5.40) m/uL Hgb 7.0 L (11.4-16.0) gm/dL Hct 20.7 L (34.0-46.0) % RDW 15.6 H (11.5-15.5) % Plt Count 95 L (150-450) k/uL Neutrophils # 8.4 H (1.3-7.7) k/uL Sodium (137-145) mmol/L BUN (7-17) mg/dL Glucose (74-99) mg/dL POC Glucose (mg/dL) 125 H 120 H (75-99) mg/dL Calcium (8.4-10.2) mg/dL AST (14-36) U/L Alkaline Phosphatase (38-126) U/L Total Protein (6.3-8.2) g/dL Albumin (3.5-5.0) g/dL Crossmatch 10/30/20 10/30/20 10/30/20 Range/Units 04:00 04:05 05:06 WBC (3.8-10.6) k/uL RBC (3.80-5.40) m/uL Hgb (11.4-16.0) gm/dL Hct (34.0-46.0) % RDW (11.5-15.5) % Plt Count (150-450) k/uL Neutrophils # (1.3-7.7) k/uL Sodium 132 L (137-145) mmol/L BUN 21 H (7-17) mg/dL Glucose 104 H (74-99) mg/dL POC Glucose (mg/dL) 117 H 113 H (75-99) mg/dL Calcium 8.1 L (8.4-10.2) mg/dL AST 110 H (14-36) U/L Alkaline Phosphatase 28 L (38-126) U/L Total Protein 4.8 L (6.3-8.2) g/dL Albumin 2.7 L (3.5-5.0) g/dL Crossmatch 10/30/20 10/30/20 10/30/20 Range/Units 06:10 06:54 08:07 WBC (3.8-10.6) k/uL RBC (3.80-5.40) m/uL Hgb (11.4-16.0) gm/dL Hct (34.0-46.0) % RDW (11.5-15.5) % Plt Count (150-450) k/uL Neutrophils # (1.3-7.7) k/uL Sodium (137-145) mmol/L BUN (7-17) mg/dL Glucose (74-99) mg/dL POC Glucose (mg/dL) 123 H 128 H 127 H (75-99) mg/dL Calcium (8.4-10.2) mg/dL AST (14-36) U/L Alkaline Phosphatase (38-126) U/L Total Protein (6.3-8.2) g/dL Albumin (3.5-5.0) g/dL Crossmatch 10/30/20 10/30/20 10/30/20 Range/Units 09:29 10:01 11:04 WBC (3.8-10.6) k/uL RBC (3.80-5.40) m/uL Hgb (11.4-16.0) gm/dL Hct (34.0-46.0) % RDW (11.5-15.5) % Plt Count (150-450) k/uL Neutrophils # (1.3-7.7) k/uL Sodium (137-145) mmol/L BUN (7-17) mg/dL Glucose (74-99) mg/dL POC Glucose (mg/dL) 132 H 128 H 154 H (75-99) mg/dL Calcium (8.4-10.2) mg/dL AST (14-36) U/L Alkaline Phosphatase (38-126) U/L Total Protein (6.3-8.2) g/dL Albumin (3.5-5.0) g/dL Crossmatch 10/30/20 Range/Units 12:02 WBC (3.8-10.6) k/uL RBC (3.80-5.40) m/uL Hgb (11.4-16.0) gm/dL Hct (34.0-46.0) % RDW (11.5-15.5) % Plt Count (150-450) k/uL Neutrophils # (1.3-7.7) k/uL Sodium (137-145) mmol/L BUN (7-17) mg/dL Glucose (74-99) mg/dL POC Glucose (mg/dL) 167 H (75-99) mg/dL Calcium (8.4-10.2) mg/dL AST (14-36) U/L Alkaline Phosphatase (38-126) U/L Total Protein (6.3-8.2) g/dL Albumin (3.5-5.0) g/dL Crossmatch Assessment and Plan Assessment: 1 Coronary artery disease status post coronary artery bypass grafting 4 utilizi ng the MARTINEZ to the LAD, saphenous vein grafts to the OM1, OM 3, PDA. Postoperative day #2 2 Anemia as expected outcome of surgery, status post 6 units packed red blood cells 3 History of hypertension 4 Hyperlipidemia 5 Diabetes mellitus 6 Hypothyroidism 7 Lifelong nonsmoker Plan: The patient was seen and evaluated by Dr. Richards Chest x-ray, labs reviewed Receiving her sixth unit of packed red blood cells Continue close hemodynamic monitoring Encouraged regarding the increased use of the incentive spirometer and cough and deep breathing exercises Increase her activity as tolerated, continue bronchodilators We will continue to follow and make further recommendations based on her clini eduardo status I, the cosigning physician, performed a history & physical examination of the patient. Lungs sounds with crackles in the bilateral posterior bases. Maintaining good O2 saturations in the 90s on 2 L/m per nasal cannula I discussed the assessment and plan of care with my nurse practitioner, Bharti Watson. I attest to the above note as dictated by her.
[2020-10-30] MEDS: LACTATED RINGERS 1,000 ML IV SCH (12:35)
[2020-10-30] MEDS: INSULIN ASPART (NovoLOG) 100 UNIT/ML VIAL SQ SCH ×3 (12:35→20:27)
[2020-10-30 15:49] LABS: HCT 25.7 % (34.0-46.0); MCV 89.1 fL (80.0-100.0); Mean Platelet Volume 9.1; Poikilocytosis Slight; RBC 2.89 m/uL (3.80-5.40); RDW 14.8 % (11.5-15.5); WBC 12.2 k/uL (3.8-10.6)
[2020-10-30 15:52] LABS: HGB 9.3 gm/dL (11.4-16.0); Platelet Count 97 k/uL (150-450)
[2020-10-30 17:05] LABS: Glucose,Whole Blood 246 mg/dL (75-99)
--- NOTE | 2020-10-30 17:55 | P.PN ---
Subjective HISTORY OF PRESENTING ILLNESS This is a pleasant 75-year-old female past medical history significant for hypertension, dyslipidemia, diabetes mellitus and chronic neck pain. She follows in the office with Dr. Duran. She underwent cardiac catheterization with Dr. Duran revealing significant damping and ostial lesion of the left main 70%, LAD 30% lesion proximally and 70% mid, circumflex with an 80% ostial lesion and RCA with 70-80% ostial lesion. She is scheduled to undergo coronary artery bypass grafting on Saturday. She is seen and examined up ambulating in the room and hallways. She denies chest pain, shortness of breath, dizziness or palpitations. She woke up again this morning with pain in her left shoulder and arm that subsided shortly after waking up. Blood pressure 110/64 heart rate 54 afebrile maintaining oxygen saturation on room air. Laboratory data reviewed, CBC unremarkable, sodium 137, potassium 4.7, creatinine 1.1. Currently maintained on aspirin 81 mg daily, atenolol 25 mg daily and atorvastatin 40 mg daily. 10/30/20 Patient seen and examined. Patient minutes she feels somewhat better today than yesterday in terms of her energy level. Per nursing she did pull out her [place]- [place] catheter accidentally. She did continue to have anemia requiring additional unit of packed red blood cells. She denies any chest pain or pressure except mild chest discomfort with deep inspiration. Milrinone has been discontinued. PHYSICAL EXAMINATION CONSTITUTIONAL: No apparent distress. HEENT: Head is normocephalic. Pupils are equal, round. Sclerae anicteric. Mucous membranes of the mouth are moist. No JVD. No carotid bruit. CHEST EXAMINATION: Lungs are clear to auscultation. No chest wall tenderness is noted on palpation or with deep breathing. HEART EXAMINATION: Regular rate and rhythm. S1, S2 heard. No murmurs, gallops or rub. EXTREMITIES: 2+ peripheral pulses, no lower extremity edema and no calf ten derness. ASSESSMENT Chest pain Triple-vessel coronary artery disease s/p CABG 4 with MARTINEZ to LAD, SVG to OM1, SVG to OM 3, SVG to PDA on 10/28/20 Abnormal stress test Acute kidney injury Hyperkalemia, improved Diabetes mellitus Hypertension Dyslipidemia Acute blood loss anemia Thrombocytopenia PLAN Continue aspirin, Plavix, and atorvastatin. Monitor hemoglobin closely and transfuse as needed. Metoprolol was increased to 50 mg twice a day. Continue supportive care. Objective - Vital Signs Vital signs: Vital Signs Temp 99.0 F 10/30/20 16:00 Pulse 104 H 10/30/20 17:00 Resp 28 H 10/30/20 17:00 BP 126/62 10/30/20 17:00 Pulse Ox 92 L 10/30/20 17:00 Intake & Output 10/29/20 10/30/20 10/30/20 18:59 06:59 18:59 Intake Total 1150.445 931.586 9756.747 Output Total 530 700 180 Balance 620.445 -49.144 936.747 Weight 82.1 kg 84.1 kg Intake: IV 1039 546 280 CO/CI 90 40 Lactated Ringers 1,000 ml 550 390 200 @ 20 mls/hr IV .Q24H [facility] Rx#:[id number] Magnesium 100 PRESSURE BAGS 99 66 30 ceFAZolin 2 gm In Sodium 100 50 50 Chloride 0.9% 50 ml @ 100 mls/hr IVPB Q8HR [facility] Rx# :[id number] potassium 100 Intake, IV Titration 111.445 104.856 26.747 Amount Insulin Regular 100 unit 54.254 104.856 26.747 In Sodium Chloride 0.9% 100 ml @ Per Protocol IV .Q0M [facility] Rx#:[id number] Milrinone-D5w Pmx 20 mg 57.191 In Dextrose/Water 1 100ml .bag @ Per Protocol IV . Q0M [facility] Rx#:[id number] Oral 500 Blood Product 310 Rc As-1 Unit 310 [id number] Output: Chest Tube Drainage 140 180 40 Mediastinal 110 90 0 PLEURAL 30 90 40 Drainage 50 65 Left Thigh 50 65 Urine 340 455 140 Other: Voiding Method Indwelling Catheter Indwelling Catheter ABP, PAP, CO, CI - Last Documented Arterial Blood Pressure 134/47 Pulmonary Artery Pressure 30/12 Cardiac Output 3.7 Cardiac Index 2.2 - Labs CBC & Chem 7: 10/30/20 15:41 10/30/20 04:00 Labs: Abnormal Lab Results - Last 24 Hours (Table) 10/27/20 10/29/20 10/29/20 Range/Units 08:20 19:04 20:00 WBC 11.3 H (3.8-10.6) k/uL RBC 2.53 L (3.80-5.40) m/uL Hgb 7.4 L (11.4-16.0) gm/dL Hct 22.3 L (34.0-46.0) % RDW (11.5-15.5) % Plt Count 101 L (150-450) k/uL Neutrophils # (1.3-7.7) k/uL Sodium (137-145) mmol/L BUN (7-17) mg/dL Glucose (74-99) mg/dL POC Glucose (mg/dL) 139 H (75-99) mg/dL Calcium (8.4-10.2) mg/dL AST (14-36) U/L Alkaline Phosphatase (38-126) U/L Total Protein (6.3-8.2) g/dL Albumin (3.5-5.0) g/dL Crossmatch See Detail 10/29/20 10/29/20 10/29/20 Range/Units 20:03 21:43 23:53 WBC (3.8-10.6) k/uL RBC (3.80-5.40) m/uL Hgb (11.4-16.0) gm/dL Hct (34.0-46.0) % RDW (11.5-15.5) % Plt Count (150-450) k/uL Neutrophils # (1.3-7.7) k/uL Sodium (137-145) mmol/L BUN (7-17) mg/dL Glucose (74-99) mg/dL POC Glucose (mg/dL) 150 H 153 H 117 H (75-99) mg/dL Calcium (8.4-10.2) mg/dL AST (14-36) U/L Alkaline Phosphatase (38-126) U/L Total Protein (6.3-8.2) g/dL Albumin (3.5-5.0) g/dL Crossmatch 10/30/20 10/30/20 10/30/20 Range/Units 01:13 01:15 01:58 WBC 12.9 H (3.8-10.6) k/uL RBC 2.37 L (3.80-5.40) m/uL Hgb 7.4 L (11.4-16.0) gm/dL Hct 21.2 L (34.0-46.0) % RDW 15.7 H (11.5-15.5) % Plt Count 97 L (150-450) k/uL Neutrophils # (1.3-7.7) k/uL Sodium (137-145) mmol/L BUN (7-17) mg/dL Glucose (74-99) mg/dL POC Glucose (mg/dL) 129 H 125 H (75-99) mg/dL Calcium (8.4-10.2) mg/dL AST (14-36) U/L Alkaline Phosphatase (38-126) U/L Total Protein (6.3-8.2) g/dL Albumin (3.5-5.0) g/dL Crossmatch 10/30/20 10/30/20 10/30/20 Range/Units 02:59 04:00 04:00 WBC 10.8 H (3.8-10.6) k/uL RBC 2.34 L (3.80-5.40) m/uL Hgb 7.0 L (11.4-16.0) gm/dL Hct 20.7 L (34.0-46.0) % RDW 15.6 H (11.5-15.5) % Plt Count 95 L (150-450) k/uL Neutrophils # 8.4 H (1.3-7.7) k/uL Sodium 132 L (137-145) mmol/L BUN 21 H (7-17) mg/dL Glucose 104 H (74-99) mg/dL POC Glucose (mg/dL) 120 H (75-99) mg/dL Calcium 8.1 L (8.4-10.2) mg/dL AST 110 H (14-36) U/L Alkaline Phosphatase 28 L (38-126) U/L Total Protein 4.8 L (6.3-8.2) g/dL Albumin 2.7 L (3.5-5.0) g/dL Crossmatch 10/30/20 10/30/20 10/30/20 Range/Units 04:05 05:06 06:10 WBC (3.8-10.6) k/uL RBC (3.80-5.40) m/uL Hgb (11.4-16.0) gm/dL Hct (34.0-46.0) % RDW (11.5-15.5) % Plt Count (150-450) k/uL Neutrophils # (1.3-7.7) k/uL Sodium (137-145) mmol/L BUN (7-17) mg/dL Glucose (74-99) mg/dL POC Glucose (mg/dL) 117 H 113 H 123 H (75-99) mg/dL Calcium (8.4-10.2) mg/dL AST (14-36) U/L Alkaline Phosphatase (38-126) U/L Total Protein (6.3-8.2) g/dL Albumin (3.5-5.0) g/dL Crossmatch 10/30/20 10/30/20 10/30/20 Range/Units 06:54 08:07 09:29 WBC (3.8-10.6) k/uL RBC (3.80-5.40) m/uL Hgb (11.4-16.0) gm/dL Hct (34.0-46.0) % RDW (11.5-15.5) % Plt Count (150-450) k/uL Neutrophils # (1.3-7.7) k/uL Sodium (137-145) mmol/L BUN (7-17) mg/dL Glucose (74-99) mg/dL POC Glucose (mg/dL) 128 H 127 H 132 H (75-99) mg/dL Calcium (8.4-10.2) mg/dL AST (14-36) U/L Alkaline Phosphatase (38-126) U/L Total Protein (6.3-8.2) g/dL Albumin (3.5-5.0) g/dL Crossmatch 10/30/20 10/30/20 10/30/20 Range/Units 10:01 11:04 12:02 WBC (3.8-10.6) k/uL RBC (3.80-5.40) m/uL Hgb (11.4-16.0) gm/dL Hct (34.0-46.0) % RDW (11.5-15.5) % Plt Count (150-450) k/uL Neutrophils # (1.3-7.7) k/uL Sodium (137-145) mmol/L BUN (7-17) mg/dL Glucose (74-99) mg/dL POC Glucose (mg/dL) 128 H 154 H 167 H (75-99) mg/dL Calcium (8.4-10.2) mg/dL AST (14-36) U/L Alkaline Phosphatase (38-126) U/L Total Protein (6.3-8.2) g/dL Albumin (3.5-5.0) g/dL Crossmatch 10/30/20 10/30/20 Range/Units 15:41 17:03 WBC 12.2 H (3.8-10.6) k/uL RBC 2.89 L (3.80-5.40) m/uL Hgb 9.3 L D (11.4-16.0) gm/dL Hct 25.7 L (34.0-46.0) % RDW (11.5-15.5) % Plt Count 97 L (150-450) k/uL Neutrophils # (1.3-7.7) k/uL Sodium (137-145) mmol/L BUN (7-17) mg/dL Glucose (74-99) mg/dL POC Glucose (mg/dL) 246 H (75-99) mg/dL Calcium (8.4-10.2) mg/dL AST (14-36) U/L Alkaline Phosphatase (38-126) U/L Total Protein (6.3-8.2) g/dL Albumin (3.5-5.0) g/dL Crossmatch
[2020-10-30 20:21] LABS: Glucose,Whole Blood 226 mg/dL (75-99)
[2020-10-30] MEDS: SENNOSIDES-DOCUSATE SODIUM 1 EACH TAB PO SCH (20:27)
[2020-10-30] MEDS: INSULIN DETEMIR (LEVEMIR) 100 UNIT/ML SYR SQ SCH (21:55)
[2020-10-31 02:10] LABS: Glucose,Whole Blood 390 mg/dL (75-99)
[2020-10-31 02:16] LABS: Glucose,Whole Blood 145 mg/dL (75-99)
[2020-10-31] MEDS: INSULIN ASPART (NovoLOG) 100 UNIT/ML VIAL SQ SCH ×5 (02:17→20:57)
[2020-10-31 04:32] LABS: Basophils % (A) 0 %; Eosinophils # (A) 0.1 k/uL (0-0.7); Eosinophils % (A) 1 %; HCT 25.1 % (34.0-46.0); HGB 8.9 gm/dL (11.4-16.0); Lymphocytes # (A) 1.5 k/uL (1.0-4.8); Lymphocytes % (A) 16 %; MCH 31.7 pg (25.0-35.0); MCHC 35.4 g/dL (31.0-37.0); MCV 89.6 fL (80.0-100.0); Monocytes # (A) 0.4 k/uL (0-1.0); Monocytes % (A) 4 %; Neutrophils # (A) 7.4 k/uL (1.3-7.7); Neutrophils % (A) 77 %; Poikilocytosis Slight; RBC 2.81 m/uL (3.80-5.40); RDW 14.9 % (11.5-15.5); WBC 9.6 k/uL (3.8-10.6)
[2020-10-31 04:40] LABS: Platelet Count 77 k/uL (150-450)
[2020-10-31 04:56] LABS: Albumin 2.6 g/dL (3.5-5.0); Calcium 8.2 mg/dL (8.4-10.2); Magnesium 2.4 mg/dL (1.6-2.3); Potassium 3.9 mmol/L (3.5-5.1); Total Bilirubin 0.7 mg/dL (0.2-1.3)
[2020-10-31] MEDS ORDERED: POTASSIUM CHLORIDE ER 20 MEQ TAB.ER PO SCH (05:00)
[2020-10-31] MEDS: LEVOTHYROXINE 112 MCG TAB PO SCH (06:22)
[2020-10-31] MEDS: PANTOPRAZOLE 40 MG TABLET PO SCH (06:22)
[2020-10-31 06:47] LABS: Glucose,Whole Blood 214 mg/dL (75-99)
[2020-10-31 06:49] LABS: Glucose,Whole Blood 105 mg/dL (75-99)
--- NOTE | 2020-10-31 07:16 | P.PN ---
Subjective Progress Note Date: 10/31/20 Coronary artery disease, status post coronary artery bypass grafting 4 75-year-old female who presented to the emergency department on October 24 at 8:00 in the morning. She apparently had chest tightness and pain. It began at 3 AM in the morning and occurred for about 5 hours before she arrived to the emergency department. The pain apparently was also noted in the left arm, and she had chest tightness as well as pain. She had no nausea, vomiting, or diaphoresis. She apparently did have an abnormal stress test in the fall, and it was recommended at that time that she have a cardiac catheterization. Her initial plan was to go down to [place]. She was given a prescription and the time down there and then come back in January and have her heart catheterization at that time. Apparently family members talked her out of it and she decided to have a heart catheterization done right away. The heart catheterization revealed a 70% occlusion in the left main, 70% occlusion in the left anterior descending coronary artery, 70% to 80% occlusion and the circumflex coronary artery and a 70% occlusion and the right coronary artery. Bypass grafting was recommended by cardiology. She apparently is going to have surgery on Saturday. We were asked to see her in preop evaluation. She does not have any history of any lung issues. She is a lifelong nonsmoker. She denies any emphysema, chronic bronchitis, asthma, or COPD. Her lung function were quite good. Her FEV1 percent was 102%. She does carry with her diagnosis of hypertension, diabetes, hyperlipidemia, and hypothyroidism. She is now status post coronary artery bypass grafting 4 utilizing the MARTINEZ to the LAD, SVGs to the OM1, OM 3, PDA. On 10/31/2020, the patient is Postoperative day #3. She was extubated. She is currently sitting up in a chair at the bedside. Awake and alert in no acute distress. She is oriented 3 this morning. She is maintaining good O2 saturation in the 90s on 2 L/m per nasal cannula. Patient was transitioned to She has lactated Ringer's at 20 ML's per hour. Insulin drip has been discontinued and the patient is currently on signs Coverage.. She does remain anemic with a hemoglobin of 8.9. She received total of 6 unit of packed red blood cells today. No active bleeding noted. Chest tube drainage minimal from the left pleural chest tube and the total output was 70 over the past 24 hours.. Mediastinal tubes removed yesterday. Chest x-ray reveals postoperative changes and some basilar atelectasis. He is using incentive spirometer which is pulling only 500. Objective - Vital Signs Vital signs: Vital Signs Temp 98.3 F 10/31/20 04:00 Pulse 89 10/31/20 07:00 Resp 19 10/31/20 07:00 BP 112/59 10/31/20 07:00 Pulse Ox 94 L 10/31/20 07:00 Intake & Output 10/30/20 10/31/20 10/31/20 18:59 06:59 18:59 Intake Total 1139.747 521 Output Total 210 1470 Balance 929.747 -949 Weight 83.4 kg Intake: IV 303 321 Lactated Ringers 1,000 ml 220 200 @ 20 mls/hr IV .Q24H [facility] Rx#:[id number] PRESSURE BAGS 33 21 ceFAZolin 2 gm In Sodium 50 100 Chloride 0.9% 50 ml @ 100 mls/hr IVPB Q8HR [facility] Rx# :[id number] Intake, IV Titration 26.747 Amount Insulin Regular 100 unit 26.747 In Sodium Chloride 0.9% 100 ml @ Per Protocol IV .Q0M [facility] Rx#:[id number] Oral 500 200 Blood Product 310 Rc As-1 Unit 310 [id number] Output: Chest Tube Drainage 70 90 Mediastinal 0 PLEURAL 70 90 Drainage 130 Left Thigh 130 Urine 140 1250 Other: Voiding Method Indwelling Catheter Bedside Commode ABP, PAP, CO, CI - Last Documented Arterial Blood Pressure 112/58 Pulmonary Artery Pressure 30/12 Cardiac Output 3.7 Cardiac Index 2.2 - Exam GENERAL EXAM: Awake, alert, pale 75-year-old female patient, up in a chair at the bedside, on 2 L/m per nasal cannula, fairly comfortable in no apparent distress. See clinically, the patient was placed on room air oxygen. HEAD: Normocephalic. EYES: Normal reaction of pupils, equal size. NOSE: Clear with pink turbinates. THROAT: No erythema or exudates. NECK: No masses, no JVD. CHEST: Sternal dressing dry and intact, Heart hugger in place. Pacer wires in place. Left pleural and mediastinal chest tubes in place. LUNGS: Equal air entry with crackles in the bilateral posterior bases. CVS: S1 and S2 normal with no audible murmur, regular rhythm. ABDOMEN: No hepatosplenomegaly, bowel sounds, no guarding or rigidity. SPINE: No scoliosis or deformity SKIN: No rashes CENTRAL NERVOUS SYSTEM: Sedated. No focal deficits, tone is normal in all 4 extremities. EXTREMITIES: There is trace peripheral edema. MILADIS drain in place. No clubbing, no cyanosis. Peripheral pulses are intact. - Labs CBC & Chem 7: 10/31/20 04:19 10/31/20 04:19 Labs: Abnormal Lab Results - Last 24 Hours (Table) 10/27/20 10/30/20 10/30/20 Range/Units 08:20 08:07 09:29 WBC (3.8-10.6) k/uL RBC (3.80-5.40) m/uL Hgb (11.4-16.0) gm/dL Hct (34.0-46.0) % Plt Count (150-450) k/uL Sodium (137-145) mmol/L BUN (7-17) mg/dL Glucose (74-99) mg/dL POC Glucose (mg/dL) 127 H 132 H (75-99) mg/dL Calcium (8.4-10.2) mg/dL Magnesium (1.6-2.3) mg/dL AST (14-36) U/L Total Protein (6.3-8.2) g/dL Albumin (3.5-5.0) g/dL Crossmatch See Detail 10/30/20 10/30/20 10/30/20 Range/Units 10:01 11:04 12:02 WBC (3.8-10.6) k/uL RBC (3.80-5.40) m/uL Hgb (11.4-16.0) gm/dL Hct (34.0-46.0) % Plt Count (150-450) k/uL Sodium (137-145) mmol/L BUN (7-17) mg/dL Glucose (74-99) mg/dL POC Glucose (mg/dL) 128 H 154 H 167 H (75-99) mg/dL Calcium (8.4-10.2) mg/dL Magnesium (1.6-2.3) mg/dL AST (14-36) U/L Total Protein (6.3-8.2) g/dL Albumin (3.5-5.0) g/dL Crossmatch 10/30/20 10/30/20 10/30/20 Range/Units 15:41 17:03 20:19 WBC 12.2 H (3.8-10.6) k/uL RBC 2.89 L (3.80-5.40) m/uL Hgb 9.3 L D (11.4-16.0) gm/dL Hct 25.7 L (34.0-46.0) % Plt Count 97 L (150-450) k/uL Sodium (137-145) mmol/L BUN (7-17) mg/dL Glucose (74-99) mg/dL POC Glucose (mg/dL) 246 H 226 H (75-99) mg/dL Calcium (8.4-10.2) mg/dL Magnesium (1.6-2.3) mg/dL AST (14-36) U/L Total Protein (6.3-8.2) g/dL Albumin (3.5-5.0) g/dL Crossmatch 10/31/20 10/31/20 10/31/20 Range/Units 02:09 02:15 04:19 WBC (3.8-10.6) k/uL RBC 2.81 L (3.80-5.40) m/uL Hgb 8.9 L (11.4-16.0) gm/dL Hct 25.1 L (34.0-46.0) % Plt Count 77 L (150-450) k/uL Sodium (137-145) mmol/L BUN (7-17) mg/dL Glucose (74-99) mg/dL POC Glucose (mg/dL) 390 H 145 H (75-99) mg/dL Calcium (8.4-10.2) mg/dL Magnesium (1.6-2.3) mg/dL AST (14-36) U/L Total Protein (6.3-8.2) g/dL Albumin (3.5-5.0) g/dL Crossmatch 10/31/20 10/31/20 10/31/20 Range/Units 04:19 06:45 06:47 WBC (3.8-10.6) k/uL RBC (3.80-5.40) m/uL Hgb (11.4-16.0) gm/dL Hct (34.0-46.0) % Plt Count (150-450) k/uL Sodium 133 L (137-145) mmol/L BUN 22 H (7-17) mg/dL Glucose 114 H (74-99) mg/dL POC Glucose (mg/dL) 214 H 105 H (75-99) mg/dL Calcium 8.2 L (8.4-10.2) mg/dL Magnesium 2.4 H (1.6-2.3) mg/dL AST 66 H (14-36) U/L Total Protein 5.0 L (6.3-8.2) g/dL Albumin 2.6 L (3.5-5.0) g/dL Crossmatch Assessment and Plan Plan: 1 Coronary artery disease status post coronary artery bypass grafting 4 utilizing the MARTINEZ to the LAD, saphenous vein grafts to the OM1, OM 3, PDA. Pos toperative day #3 vomiting. The patient is hemodynamically stable. The patient is on no pressors. The patient still has a left pleural chest tube and mediastinal chest tubes have been removed. The pacemaker wires are also in place. 2 Anemia as expected outcome of surgery, status post 6 units packed red blood cells, hemoglobin today is at 8.9 3 Hypertension 4 Hyperlipidemia 5 Diabetes mellitus currently on size Coverage. She is also on Levemir long- acting insulin coverage. 6 Hypothyroidism 7 Lifelong nonsmoker Plan: Chest x-ray, labs reviewed and the patient has some mild pulmonary vascular congestion. Recommended dose of Lasix 40 mg IV push. Remove the left pleural chest tube Receiving her sixth unit of packed red blood cells, hemoglobin is at 8.9 Continue close hemodynamic monitoring Encouraged regarding the increased use of the incentive spirometer and cough and deep breathing exercises Increase her activity as tolerated, continue bronchodilators We will continue to follow and make further recommendations based on her clinical status
[2020-10-31] MEDS ORDERED: FUROSEMIDE 10 MG/ML 4 ML VIAL IV STA (07:18)
--- NOTE | 2020-10-31 07:38 | P.PN ---
Subjective Progress Note Date: 10/31/20 Principal diagnosis: Symptomatic coronary artery disease with left main disease, unstable angina. 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 Endoscopic harvesting of bilateral greater saphenous veins. Epi-aortic ultrasound and intraoperative transesophageal echocardiogram. Ligation of the left atrial appendage using a 35 mm AtriClip Postoperative acute blood loss anemia and thrombocytopenia, expected given hemodilution and cardiopulmonary bypass pump The patient is currently sitting up in the recliner in the intensive care unit in no acute distress. States pain is well-controlled on current medication regimen, requiring no narcotics. Denies shortness of breath. Remains in sinus rhythm with heart rate in the low 90s. Hemodynamically stable on no inotropes or pressors. Received 1 unit packed red cells yesterday. Left pleural chest tube remains. The patient has had no more episodes of confusion, and in fact is in good spirits this morning. She is attempting incentive spirometry use although not achieving more than 500 mL. Family was updated yesterday via phone and all questions answered. No new concerns. Objective - Vital Signs Vital signs: Vital Signs Temp 98.3 F 10/31/20 04:00 Pulse 89 10/31/20 07:00 Resp 19 10/31/20 07:00 BP 112/59 10/31/20 07:00 Pulse Ox 94 L 10/31/20 07:00 Intake & Output 10/30/20 10/31/20 10/31/20 18:59 06:59 18:59 Intake Total 1139.747 521 Output Total 210 1470 Balance 929.747 -949 Weight 83.4 kg Intake: IV 303 321 Lactated Ringers 1,000 ml 220 200 @ 20 mls/hr IV .Q24H [facility] Rx#:[id number] PRESSURE BAGS 33 21 ceFAZolin 2 gm In Sodium 50 100 Chloride 0.9% 50 ml @ 100 mls/hr IVPB Q8HR [facility] Rx# :[id number] Intake, IV Titration 26.747 Amount Insulin Regular 100 unit 26.747 In Sodium Chloride 0.9% 100 ml @ Per Protocol IV .Q0M [facility] Rx#:[id number] Oral 500 200 Blood Product 310 Rc As-1 Unit 310 [id number] Output: Chest Tube Drainage 70 90 Mediastinal 0 PLEURAL 70 90 Drainage 130 Left Thigh 130 Urine 140 1250 Other: Voiding Method Indwelling Catheter Bedside Commode ABP, PAP, CO, CI - Last Documented Arterial Blood Pressure 112/58 Pulmonary Artery Pressure 30/12 Cardiac Output 3.7 Cardiac Index 2.2 - Constitutional General appearance: Present: cooperative, no acute distress, obese - Respiratory Details: Lungs sounds diminished in the bases bilaterally. Respirations even, nonlabored. Currently on room air with oxygen saturation 95%. Able to achieve 500 mL on her incentive spirometry. Strong nonproductive cough. Left pleural chest tube present to continuous wall suction, 40 mL serosanguineous drainage overnight, 170 mL in the last 24 hours. No air leaks present. - Cardiovascular Details: S1, S2 present. Regular rate and rhythm, sinus rhythm on telemetry with heart rate in the low 90s. Sternum stable. A/V epicardial pacemaker wires present, grounded. Palpable peripheral pulses bilaterally. Trace upper extremity edema present. No calf pain or tenderness noted. Heart hugger in place with patient demonstrating appropriate use. Antiembolism stockings, SCDs present. - Gastrointestinal Gastrointestinal Comment(s): Abdomen soft, nontender, nondistended. Active bowel sounds present 4 quadrants. Tolerating diet. Positive flatus, negative bowel movement - Genitourinary Genitourinary Comment(s): Hernandez discontinued yesterday. Patient has voided 250-500 mL at a time - Integumentary Integumentary Comment(s): Skin is warm and dry with evidence of good perfusion. Anterior chest incision well approximated and covered with dry intact dressing. Left lower extremity EVH site well approximated, MILADIS drain present with 135 mL output in the last 24 hours. - Neurologic Neurologic: Present: CNII-XII intact - Musculoskeletal Musculoskeletal: Present: gait normal, strength equal bilaterally - Psychiatric Psychiatric: Present: A&O x's 3, appropriate affect, intact judgment & insight - Allied health notes Allied health notes reviewed: nursing - Labs CBC & Chem 7: 10/31/20 04:19 10/31/20 04:19 Labs: Abnormal Lab Results - Last 24 Hours (Table) 10/27/20 10/30/20 10/30/20 Range/Units 08:20 08:07 09:29 WBC (3.8-10.6) k/uL RBC (3.80-5.40) m/uL Hgb (11.4-16.0) gm/dL Hct (34.0-46.0) % Plt Count (150-450) k/uL Sodium (137-145) mmol/L BUN (7-17) mg/dL Glucose (74-99) mg/dL POC Glucose (mg/dL) 127 H 132 H (75-99) mg/dL Calcium (8.4-10.2) mg/dL Magnesium (1.6-2.3) mg/dL AST (14-36) U/L Total Protein (6.3-8.2) g/dL Albumin (3.5-5.0) g/dL Crossmatch See Detail 10/30/20 10/30/20 10/30/20 Range/Units 10:01 11:04 12:02 WBC (3.8-10.6) k/uL RBC (3.80-5.40) m/uL Hgb (11.4-16.0) gm/dL Hct (34.0-46.0) % Plt Count (150-450) k/uL Sodium (137-145) mmol/L BUN (7-17) mg/dL Glucose (74-99) mg/dL POC Glucose (mg/dL) 128 H 154 H 167 H (75-99) mg/dL Calcium (8.4-10.2) mg/dL Magnesium (1.6-2.3) mg/dL AST (14-36) U/L Total Protein (6.3-8.2) g/dL Albumin (3.5-5.0) g/dL Crossmatch 10/30/20 10/30/20 10/30/20 Range/Units 15:41 17:03 20:19 WBC 12.2 H (3.8-10.6) k/uL RBC 2.89 L (3.80-5.40) m/uL Hgb 9.3 L D (11.4-16.0) gm/dL Hct 25.7 L (34.0-46.0) % Plt Count 97 L (150-450) k/uL Sodium (137-145) mmol/L BUN (7-17) mg/dL Glucose (74-99) mg/dL POC Glucose (mg/dL) 246 H 226 H (75-99) mg/dL Calcium (8.4-10.2) mg/dL Magnesium (1.6-2.3) mg/dL AST (14-36) U/L Total Protein (6.3-8.2) g/dL Albumin (3.5-5.0) g/dL Crossmatch 10/31/20 10/31/20 10/31/20 Range/Units 02:09 02:15 04:19 WBC (3.8-10.6) k/uL RBC 2.81 L (3.80-5.40) m/uL Hgb 8.9 L (11.4-16.0) gm/dL Hct 25.1 L (34.0-46.0) % Plt Count 77 L (150-450) k/uL Sodium (137-145) mmol/L BUN (7-17) mg/dL Glucose (74-99) mg/dL POC Glucose (mg/dL) 390 H 145 H (75-99) mg/dL Calcium (8.4-10.2) mg/dL Magnesium (1.6-2.3) mg/dL AST (14-36) U/L Total Protein (6.3-8.2) g/dL Albumin (3.5-5.0) g/dL Crossmatch 10/31/20 10/31/20 10/31/20 Range/Units 04:19 06:45 06:47 WBC (3.8-10.6) k/uL RBC (3.80-5.40) m/uL Hgb (11.4-16.0) gm/dL Hct (34.0-46.0) % Plt Count (150-450) k/uL Sodium 133 L (137-145) mmol/L BUN 22 H (7-17) mg/dL Glucose 114 H (74-99) mg/dL POC Glucose (mg/dL) 214 H 105 H (75-99) mg/dL Calcium 8.2 L (8.4-10.2) mg/dL Magnesium 2.4 H (1.6-2.3) mg/dL AST 66 H (14-36) U/L Total Protein 5.0 L (6.3-8.2) g/dL Albumin 2.6 L (3.5-5.0) g/dL Crossmatch - Imaging and Cardiology Chest x-ray: image reviewed Assessment and Plan Assessment: 1. Symptomatic coronary artery disease with left main disease, unstable angina, status post four-vessel CABG 2. Hyperkalemia on admission, resolved 3. Acute kidney injury 4. Hypertension 5. Hyperlipidemia, treated, cholesterol 124, LDL 71 6. Jgd-jkaefgx-poixbtjnb diabetes with A1c 6.5% 7. Hypothyroid 8. Obesity 9. 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 Never smoker, FEV1 102% of predicted 11. Family history of premature coronary artery disease with a brother having stents at less than 55 years old 12. Postoperative acute blood loss anemia and thrombocytopenia, expected Plan: 1. Continue low dose ASA, statin, Plavix, beta sobeida therapy. Will increase beta sobeida therapy as tolerated 2. Encourage incentive spirometry use 10 times every hour while awake. Bronchodilators per pulmonology 3. Increase activity, ambulate as tolerated. PT/OT/cardiac rehab following 4. Will monitor daily labs and a chest x-rays. Electrolyte replacement per protocol. No further transfusion. We'll give IV Lasix today 5. Encourage oral intake. Supplements ordered. 6. Insulin management per primary care service 7. Pain control with current medication regimen. No narcotics 8. Will discontinue left pleural chest tube, MILADIS drain today. 9. Will discontinue epicardial pacemaker wires. Patient to remain on bedrest for 1 hour post-removal 10. Strict accurate intake and output. Daily weights. 11. Continue to encourage risk factor modification 12. We will place transfer orders for 3 S. cardiac stepdown unit. May transfer when bed available 13. Discharge planning in progress. Anticipate discharge to home with home care in the next 24-48 hours 14. More recommendations to follow based on patient's progress Time with Patient: Greater than 30
--- NOTE | 2020-10-31 08:03 | XR ---
EXAMINATION TYPE: XR chest 1V portable DATE OF EXAM: 10/31/2020 Comparison: 10/30/2020 Clinical History: 75-year-old female post cardiac surgery Findings: Median sternotomy wires and post-CABG clips in the mediastinum. Leftward patient rotation alters norm al cardiac and mediastinal contours. Heart mildly enlarged. Diffuse interstitial density shows interv al increase. Left-sided chest tube. No appreciable pneumothorax. Impression: Increasing interstitial opacity, possible developing CHF/pulmonary vascular congestion. Left-sided ch est tube in place. No appreciable pneumothorax.
[2020-10-31] MEDS: CLOPIDOGREL 75 MG TAB PO SCH (08:49)
[2020-10-31] MEDS: ASPIRIN 81 MG PO SCH (08:49)
[2020-10-31] MEDS: METOPROLOL TARTRATE 50 MG TAB PO SCH ×3 (08:49→20:56)
[2020-10-31] MEDS: HEPARIN SODIUM,PORCINE 5,000 UNIT/ML 1 ML VIAL SQ SCH (08:49)
[2020-10-31] MEDS: ATORVASTATIN 40 MG TAB PO SCH (08:49)
--- NOTE | 2020-10-31 09:27 | P.PN ---
Subjective Progress Note Date: 10/31/20 This is a 75-year-old female who was admitted to the hospital with unstable angina and was noted to have diffuse coronary artery disease including left main. Patient had bypass surgery with the MARTINEZ graft to the LAD and 2 vein graft to OM1 and OM 2 and and separate vein graft to the PDA. Postoperatively patient has received about 4 units of blood transfusion. Patient however seems to be clinically stable. She is sitting up in the chair. Denies any chest pain or shortness of breath. No arrhythmias are noted. Chest x-ray today showed mild congestion. Patient is going to get IV Lasix. She is being transferred to telemetry unit. If possible, patient will be discharged home within next 24-48 hours. For outpatient clinical status seemed to be stable Objective - Vital Signs Vital signs: Vital Signs Temp 99 F 10/31/20 08:00 Pulse 93 10/31/20 08:00 Resp 26 H 10/31/20 08:00 BP 125/62 10/31/20 08:00 Pulse Ox 95 10/31/20 08:00 Intake & Output 10/30/20 10/31/20 10/31/20 18:59 06:59 18:59 Intake Total 1139.747 521 Output Total 210 1470 0 Balance 929.747 -949 0 Weight 83.4 kg Intake: IV 303 321 Lactated Ringers 1,000 ml 220 200 @ 20 mls/hr IV .Q24H [facility] Rx#:[id number] PRESSURE BAGS 33 21 ceFAZolin 2 gm In Sodium 50 100 Chloride 0.9% 50 ml @ 100 mls/hr IVPB Q8HR [facility] Rx# :[id number] Intake, IV Titration 26.747 Amount Insulin Regular 100 unit 26.747 In Sodium Chloride 0.9% 100 ml @ Per Protocol IV .Q0M [facility] Rx#:[id number] Oral 500 200 Blood Product 310 Rc As-1 Unit 310 [id number] Output: Chest Tube Drainage 70 90 Mediastinal 0 PLEURAL 70 90 Drainage 130 Left Thigh 130 Urine 140 1250 0 Other: Voiding Method Indwelling Catheter Bedside Commode ABP, PAP, CO, CI - Last Documented Arterial Blood Pressure 112/58 Pulmonary Artery Pressure 30/12 Cardiac Output 3.7 Cardiac Index 2.2 - Exam GENERAL EXAM: Patient is alert and oriented and doesn't appear to be in any acute distress HEENT: Normocephalic. Normal reaction of pupils, equal size, normal range of extraocular motion. No erythema or exudates in the throat. NECK: No masses, no nuchal rigidity. CHEST: Postsurgical LUNGS: Equal air entry with no crackles or wheeze. Diminished breath sounds at bases HEART: S1 and S2 normal with no audible mumurs or gallops. Regular rhythm, femorals equal on both sides.. ABDOMEN: No hepatosplenomegaly, normal bowel sounds, no guarding or rigidity. SKIN: No rashes CENTRAL NERVOUS SYSTEM: No focal deficits. EXTREMITIES: No cyanosis, clubbing or edema. - Labs CBC & Chem 7: 10/31/20 04:19 10/31/20 04:19 Labs: Abnormal Lab Results - Last 24 Hours (Table) 10/27/20 10/30/20 10/30/20 Range/Units 08:20 09:29 10:01 WBC (3.8-10.6) k/uL RBC (3.80-5.40) m/uL Hgb (11.4-16.0) gm/dL Hct (34.0-46.0) % Plt Count (150-450) k/uL Sodium (137-145) mmol/L BUN (7-17) mg/dL Glucose (74-99) mg/dL POC Glucose (mg/dL) 132 H 128 H (75-99) mg/dL Calcium (8.4-10.2) mg/dL Magnesium (1.6-2.3) mg/dL AST (14-36) U/L Total Protein (6.3-8.2) g/dL Albumin (3.5-5.0) g/dL Crossmatch See Detail 10/30/20 10/30/20 10/30/20 Range/Units 11:04 12:02 15:41 WBC 12.2 H (3.8-10.6) k/uL RBC 2.89 L (3.80-5.40) m/uL Hgb 9.3 L D (11.4-16.0) gm/dL Hct 25.7 L (34.0-46.0) % Plt Count 97 L (150-450) k/uL Sodium (137-145) mmol/L BUN (7-17) mg/dL Glucose (74-99) mg/dL POC Glucose (mg/dL) 154 H 167 H (75-99) mg/dL Calcium (8.4-10.2) mg/dL Magnesium (1.6-2.3) mg/dL AST (14-36) U/L Total Protein (6.3-8.2) g/dL Albumin (3.5-5.0) g/dL Crossmatch 10/30/20 10/30/20 10/31/20 Range/Units 17:03 20:19 02:09 WBC (3.8-10.6) k/uL RBC (3.80-5.40) m/uL Hgb (11.4-16.0) gm/dL Hct (34.0-46.0) % Plt Count (150-450) k/uL Sodium (137-145) mmol/L BUN (7-17) mg/dL Glucose (74-99) mg/dL POC Glucose (mg/dL) 246 H 226 H 390 H (75-99) mg/dL Calcium (8.4-10.2) mg/dL Magnesium (1.6-2.3) mg/dL AST (14-36) U/L Total Protein (6.3-8.2) g/dL Albumin (3.5-5.0) g/dL Crossmatch 10/31/20 10/31/20 10/31/20 Range/Units 02:15 04:19 04:19 WBC (3.8-10.6) k/uL RBC 2.81 L (3.80-5.40) m/uL Hgb 8.9 L (11.4-16.0) gm/dL Hct 25.1 L (34.0-46.0) % Plt Count 77 L (150-450) k/uL Sodium 133 L (137-145) mmol/L BUN 22 H (7-17) mg/dL Glucose 114 H (74-99) mg/dL POC Glucose (mg/dL) 145 H (75-99) mg/dL Calcium 8.2 L (8.4-10.2) mg/dL Magnesium 2.4 H (1.6-2.3) mg/dL AST 66 H (14-36) U/L Total Protein 5.0 L (6.3-8.2) g/dL Albumin 2.6 L (3.5-5.0) g/dL Crossmatch 10/31/20 10/31/20 Range/Units 06:45 06:47 WBC (3.8-10.6) k/uL RBC (3.80-5.40) m/uL Hgb (11.4-16.0) gm/dL Hct (34.0-46.0) % Plt Count (150-450) k/uL Sodium (137-145) mmol/L BUN (7-17) mg/dL Glucose (74-99) mg/dL POC Glucose (mg/dL) 214 H 105 H (75-99) mg/dL Calcium (8.4-10.2) mg/dL Magnesium (1.6-2.3) mg/dL AST (14-36) U/L Total Protein (6.3-8.2) g/dL Albumin (3.5-5.0) g/dL Crossmatch Assessment and Plan (1) H/O four vessel coronary artery bypass graft Current Visit: Yes Status: Acute Code(s): Z95.1 - PRESENCE OF AORTOCORONARY BYPASS GRAFT SNOMED Code(s): 075591368 (2) Hypertension Current Visit: Yes Status: Acute Code(s): I10 - ESSENTIAL (PRIMARY) HYPERTENSION SNOMED Code(s): 24482327 (3) Type 2 diabetes mellitus Current Visit: Yes Status: Acute Code(s): E11.9 - TYPE 2 DIABETES MELLITUS WITHOUT COMPLICATIONS SNOMED Code(s): 45042780 Plan: Continue current management. Transfer to telemetry unit. Incentive spirometry.
[2020-10-31] MEDS: IPRATROPIUM-ALBUTEROL 3 ML NEB INHALATION SCH ×4 (09:36→19:55)
[2020-10-31 11:31] VITALS: BMI 35.9
[2020-10-31 11:50] LABS: Glucose,Whole Blood 162 mg/dL (75-99)
--- NOTE | 2020-10-31 13:58 | P.PN ---
Subjective Progress Note Date: 10/31/20 This is 75-year-old female with a abnormal stress test back in August, reports creative specialist recommended cardiac catheterization but patient was afraid to come into hospital for fear of contacting Covid. Developed left arm pain earlier this morning, accompanied by numbness in left upper chest pressure, proceeded to the ER. Denies nausea vomiting or diarrhea. Denies diaphoresis. Denies fever or chills. Denies lightheadedness, dizziness or focal deficits. EKG reported sinus rhythm, inferior infarct age undetermined, troponins negative 3 ,chest x- ray reported no acute cardiopulmonary process. Afebrile, maintaining O2 sats in the high 90s on room air .hematology unremarkable, INR 1, sodium 135, potassium 5.5, BUN 20, creatinine 0.98, glucose 196, magnesium 1.7. Elevated AST of 39. Evaluated by cardiology and patient is scheduled for cardiac catheterization in the a.m. Underwent cardiac catheterization this morning, reporting left main 70% stenosis, mid LAD 70% stenosis, circumflex 70-80% stenosis and RCA 70-80% stenosis. Cardiothoracic surgery consulted regarding CABG. Renal function mildly elevated 1.07, maintained on IV fluid hydration. Currently denies any chest pain, palpitations or shortness of breath. Telemetry sinus rhythm. Blood sugars controlled. 10/26/2020 ambulating, tolerating exertion well. No further chest pain reported. Denies palpitations or shortness of breath. Denies lightheadedness or dizziness or focal deficits. Scheduled for CABG on Saturday. Post cardiac cath, creatinine mildly trending up. Maintaining O2 sats in the 90s on room air. Afebrile. 10/27/2020 scheduled for CABG tomorrow. Creatinine trending down 1.1. Good diet intake with no nausea vomiting or diarrhea. Ambulating, tolerating exertion well. Maintaining O2 sats in the 90s on room air. Continues on statin, beta sobeida and aspirin. Denies chest pain, palpitations or shortness of breath. Incentive spirometer up to 1500. Telemetry sinus bradycardia, heart rate in the 50s. 10/31/2020 status post CABG, postop day #3. Received one unit of RBCs yesterday with current hemoglobin at 8.9. Telemetry sinus rhythm. Chest x-ray reporting increasing interstitial opacity,pulmonary vascular congestion/atelectasis. Chest tubes discontinued. Maintaining O2 sats in the 90s on room air, IS up to 500ml. Patient reports small bowel movement this morning. Blood sugars controlled. Objective - Vital Signs Vital signs: Vital Signs Temp 98.7 F 10/31/20 12:00 Pulse 93 10/31/20 12:56 Resp 20 10/31/20 12:15 BP 116/61 10/31/20 12:30 Pulse Ox 95 10/31/20 12:30 Intake & Output 10/30/20 10/31/20 10/31/20 18:59 06:59 18:59 Intake Total 1139.747 521 140 Output Total 210 1470 1250 Balance 929.315 -193 -1110 Weight 83.4 kg 83.4 kg Intake: IV 303 321 Lactated Ringers 1,000 ml 220 200 @ 20 mls/hr IV .Q24H [facility] Rx#:[id number] PRESSURE BAGS 33 21 ceFAZolin 2 gm In Sodium 50 100 Chloride 0.9% 50 ml @ 100 mls/hr IVPB Q8HR [facility] Rx# :[id number] Intake, IV Titration 26.747 Amount Insulin Regular 100 unit 26.747 In Sodium Chloride 0.9% 100 ml @ Per Protocol IV .Q0M [facility] Rx#:[id number] Oral 500 200 140 Blood Product 310 Rc As-1 Unit 310 [id number] Output: Chest Tube Drainage 70 90 Mediastinal 0 PLEURAL 70 90 Drainage 130 Left Thigh 130 Urine 140 1250 1250 Other: Voiding Method Indwelling Catheter Bedside Commode Bedside Commode ABP, PAP, CO, CI - Last Documented Arterial Blood Pressure 112/58 Pulmonary Artery Pressure 30/12 Cardiac Output 3.7 Cardiac Index 2.2 - Exam PHYSICAL EXAM: VITAL SIGNS: [As above] GENERAL: Alert and oriented 3, sitting up in chair, wearing Heart Hugger, no acute distress HEENT: Conjunctivae normal. eyes normal. Oral mucosa moist. NECK: No JVD. No thyroid enlargement. CARDIOVASCULAR: S1, S2 regular. No murmur RESPIRATION: Breath sounds diminished in the bases. Fine bibasilar crackles, no wheezing. ABDOMEN: Soft, nontender . No guarding. no masses palpable. Positive Bowel sounds. LEGS: Minimal edema, no calf tenderness NERVOUS SYSTEM: Cranial N 2-12 grossly normal. Moves all 4 limbs. No focal deficits. Strength and sensation grossly intact.. Skin: Warm and dry, no rash - Labs CBC & Chem 7: 10/31/20 04:19 10/31/20 04:19 Labs: Abnormal Lab Results - Last 24 Hours (Table) 10/30/20 10/30/20 10/30/20 Range/Units 15:41 17:03 20:19 WBC 12.2 H (3.8-10.6) k/uL RBC 2.89 L (3.80-5.40) m/uL Hgb 9.3 L D (11.4-16.0) gm/dL Hct 25.7 L (34.0-46.0) % Plt Count 97 L (150-450) k/uL Sodium (137-145) mmol/L BUN (7-17) mg/dL Glucose (74-99) mg/dL POC Glucose (mg/dL) 246 H 226 H (75-99) mg/dL Calcium (8.4-10.2) mg/dL Magnesium (1.6-2.3) mg/dL AST (14-36) U/L Total Protein (6.3-8.2) g/dL Albumin (3.5-5.0) g/dL 10/31/20 10/31/20 10/31/20 Range/Units 02:09 02:15 04:19 WBC (3.8-10.6) k/uL RBC 2.81 L (3.80-5.40) m/uL Hgb 8.9 L (11.4-16.0) gm/dL Hct 25.1 L (34.0-46.0) % Plt Count 77 L (150-450) k/uL Sodium (137-145) mmol/L BUN (7-17) mg/dL Glucose (74-99) mg/dL POC Glucose (mg/dL) 390 H 145 H (75-99) mg/dL Calcium (8.4-10.2) mg/dL Magnesium (1.6-2.3) mg/dL AST (14-36) U/L Total Protein (6.3-8.2) g/dL Albumin (3.5-5.0) g/dL 10/31/20 10/31/20 10/31/20 Range/Units 04:19 06:45 06:47 WBC (3.8-10.6) k/uL RBC (3.80-5.40) m/uL Hgb (11.4-16.0) gm/dL Hct (34.0-46.0) % Plt Count (150-450) k/uL Sodium 133 L (137-145) mmol/L BUN 22 H (7-17) mg/dL Glucose 114 H (74-99) mg/dL POC Glucose (mg/dL) 214 H 105 H (75-99) mg/dL Calcium 8.2 L (8.4-10.2) mg/dL Magnesium 2.4 H (1.6-2.3) mg/dL AST 66 H (14-36) U/L Total Protein 5.0 L (6.3-8.2) g/dL Albumin 2.6 L (3.5-5.0) g/dL 10/31/20 Range/Units 11:48 WBC (3.8-10.6) k/uL RBC (3.80-5.40) m/uL Hgb (11.4-16.0) gm/dL Hct (34.0-46.0) % Plt Count (150-450) k/uL Sodium (137-145) mmol/L BUN (7-17) mg/dL Glucose (74-99) mg/dL POC Glucose (mg/dL) 162 H (75-99) mg/dL Calcium (8.4-10.2) mg/dL Magnesium (1.6-2.3) mg/dL AST (14-36) U/L Total Protein (6.3-8.2) g/dL Albumin (3.5-5.0) g/dL Assessment and Plan Assessment: Acute chest pain in a patient with prior abnormal stress test, Status post cardiac catheterization reporting multivessel CAD with left main disease. Status post CABG. Acute postoperative Anemia, expected outcome, status post 6 units packed RBCs Acute renal failure post cardiac catheterization, improved Hyperkalemia, resolved Diabetes mellitus, hemoglobin A1c 6.5 Hypertension Hyperlipidemia Hypothyroidism Obesity, BMI 31.2 Atelectasis Plan: Continue on current medication regime ,monitoring and symptomatic treatment. Maintain nebulized bronchodilators ,aggressive pulmonary toileting with incentive spirometer reinforced. one dose of Lasix IV push as per pulmonary. Scheduled for transfer out of ICU to telemetry units. Close monitoring of Accu-Cheks, coags with repeat labs ordered for a.m. The impression and plan of care has been dictated as directed. : I performed a history and examination of this patient, discussed the same with the dictator. I agree with the dictator's note ,documented as a scribe. Any additional findings or plans will be noted.
[2020-10-31 20:47] LABS: Glucose,Whole Blood 197 mg/dL (75-99)
[2020-10-31] MEDS: SENNOSIDES-DOCUSATE SODIUM 1 EACH TAB PO SCH (20:56)
[2020-10-31] MEDS: INSULIN DETEMIR (LEVEMIR) 100 UNIT/ML SYR SQ SCH (20:58)
[2020-11-01 03:00] LABS: Glucose,Whole Blood 146 mg/dL (75-99)
[2020-11-01] MEDS: INSULIN ASPART (NovoLOG) 100 UNIT/ML VIAL SQ SCH ×3 (03:11→11:42)
[2020-11-01 03:40] LABS: HCT 26.3 % (34.0-46.0); MCH 31.7 pg (25.0-35.0); MCHC 34.4 g/dL (31.0-37.0); Mean Platelet Volume 8.8; Platelet Count 113 k/uL (150-450); Poikilocytosis Slight; RBC 2.85 m/uL (3.80-5.40); RDW 15.2 % (11.5-15.5); WBC 13.2 k/uL (3.8-10.6)
[2020-11-01 03:49] LABS: Albumin 2.9 g/dL (3.5-5.0); Calcium 8.3 mg/dL (8.4-10.2); Potassium 4.1 mmol/L (3.5-5.1); Total Protein 5.5 g/dL (6.3-8.2)
[2020-11-01 06:48] LABS: Glucose,Whole Blood 149 mg/dL (75-99)
[2020-11-01] MEDS: LEVOTHYROXINE 112 MCG TAB PO SCH (06:53)
[2020-11-01] MEDS: PANTOPRAZOLE 40 MG TABLET PO SCH (06:53)
--- NOTE | 2020-11-01 07:14 | P.PN ---
Subjective Progress Note Date: 11/01/20 Coronary artery disease, status post coronary artery bypass grafting 4 75-year-old female who presented to the emergency department on October 24 at 8:00 in the morning. She apparently had chest tightness and pain. It began at 3 AM in the morning and occurred for about 5 hours before she arrived to the emergency department. The pain apparently was also noted in the left arm, and she had chest tightness as well as pain. She had no nausea, vomiting, or diaphoresis. She apparently did have an abnormal stress test in the fall, and it was recommended at that time that she have a cardiac catheterization. Her initial plan was to go down to [place]. She was given a prescription and the time down there and then come back in January and have her heart catheterization at that time. Apparently family members talked her out of it and she decided to have a heart catheterization done right away. The heart catheterization revealed a 70% occlusion in the left main, 70% occlusion in the left anterior descending coronary artery, 70% to 80% occlusion and the circumflex coronary artery and a 70% occlusion and the right coronary artery. Bypass grafting was recommended by cardiology. She apparently is going to have surgery on Saturday. We were asked to see her in preop evaluation. She does not have any history of any lung issues. She is a lifelong nonsmoker. She denies any emphysema, chronic bronchitis, asthma, or COPD. Her lung function were quite good. Her FEV1 percent was 102%. She does carry with her diagnosis of hypertension, diabetes, hyperlipidemia, and hypothyroidism. She is now status post coronary artery bypass grafting 4 utilizing the MARTINEZ to the LAD, SVGs to the OM1, OM 3, PDA. On 10/31/2020, the patient is Postoperative day #3. She was extubated. She is currently sitting up in a chair at the bedside. Awake and alert in no acute distress. She is oriented 3 this morning. She is maintaining good O2 saturation in the 90s on 2 L/m per nasal cannula. Patient was transitioned to She has lactated Ringer's at 20 ML's per hour. Insulin drip has been discontinu ed and the patient is currently on signs Coverage.. She does remain anemic with a hemoglobin of 8.9. She received total of 6 unit of packed red blood cells today. No active bleeding noted. Chest tube drainage minimal from the left pleural chest tube and the total output was 70 over the past 24 hours.. Mediastinal tubes removed yesterday. Chest x-ray reveals postoperative changes and some basilar atelectasis. He is using incentive spirometer which is pulling only 500. On 11/01/2020 the patient is postop day #4. She is resting comfortably on the recliner. She is on room air oxygen with a pulse ox of 96%. Mediastinal chest tubes have been removed. The pleural chest tubes have been removed. The patient is using incentive spirometer and he she is pulling approximately 750. Sternum is dry clean and intact. Surgical wound sites are clean. MILADIS drain has been taken out. The cardiac rhythm is still sinus. She has an adequate urine output. No nausea. No vomiting. No abdominal pain. No chest pain. She is producing urine output in the order of 100 mL an hour as the patient was given a dose of Lasix yesterday. Chest x-ray shows significant improvement in the volume status compared to yesterday. There is some limited atelectatic changes in the right midlung area. No other significant events otherwise for now. Objective - Vital Signs Vital signs: Vital Signs Temp 98.7 F 11/01/20 04:00 Pulse 88 11/01/20 04:00 Resp 18 11/01/20 04:00 BP 124/75 11/01/20 04:00 Pulse Ox 94 L 11/01/20 04:00 Intake & Output 10/31/20 11/01/20 11/01/20 18:59 06:59 18:59 Intake Total 140 Output Total 2300 450 Balance -2160 -450 Weight 83.4 kg 82.9 kg Intake: Oral 140 Output: Drainage 50 Left Thigh 50 Urine 2250 450 Other: Voiding Method Bedside Commode Bedside Commode # Voids 2 ABP, PAP, CO, CI - Last Documented Arterial Blood Pressure 112/58 Pulmonary Artery Pressure 30/12 Cardiac Output 3.7 Cardiac Index 2.2 - Exam GENERAL EXAM: Awake, alert, pale 75-year-old female patient, up in a chair at the bedside, on room air oxygen, fairly comfortable in no apparent distress. See clinically, the patient was placed on room air oxygen. HEAD: Normocephalic. EYES: Normal reaction of pupils, equal size. NOSE: Clear with pink turbinates. THROAT: No erythema or exudates. NECK: No masses, no JVD. CHEST: Sternal dressing dry and intact, Heart hugger in place. Pacer wires in place. Left pleural and mediastinal chest tubes in place. LUNGS: Equal air entry with crackles in the bilateral posterior bases. CVS: S1 and S2 normal with no audible murmur, regular rhythm. ABDOMEN: No hepatosplenomegaly, bowel sounds, no guarding or rigidity. SPINE: No scoliosis or deformity SKIN: No rashes CENTRAL NERVOUS SYSTEM: Sedated. No focal deficits, tone is normal in all 4 ext remities. EXTREMITIES: There is trace peripheral edema. MILADIS drain in place. No clubbing, no cyanosis. Peripheral pulses are intact. - Labs CBC & Chem 7: 11/01/20 03:11 11/01/20 03:11 Labs: Abnormal Lab Results - Last 24 Hours (Table) 10/31/20 10/31/20 11/01/20 Range/Units 11:48 20:46 02:57 WBC (3.8-10.6) k/uL RBC (3.80-5.40) m/uL Hgb (11.4-16.0) gm/dL Hct (34.0-46.0) % Plt Count (150-450) k/uL Sodium (137-145) mmol/L BUN (7-17) mg/dL Creatinine (0.52-1.04) mg/dL Glucose (74-99) mg/dL POC Glucose (mg/dL) 162 H 197 H 146 H (75-99) mg/dL Calcium (8.4-10.2) mg/dL AST (14-36) U/L Total Protein (6.3-8.2) g/dL Albumin (3.5-5.0) g/dL 11/01/20 11/01/20 11/01/20 Range/Units 03:11 03:11 06:47 WBC 13.2 H (3.8-10.6) k/uL RBC 2.85 L (3.80-5.40) m/uL Hgb 9.0 L (11.4-16.0) gm/dL Hct 26.3 L (34.0-46.0) % Plt Count 113 L (150-450) k/uL Sodium 134 L (137-145) mmol/L BUN 20 H (7-17) mg/dL Creatinine 1.06 H (0.52-1.04) mg/dL Glucose 145 H (74-99) mg/dL POC Glucose (mg/dL) 149 H (75-99) mg/dL Calcium 8.3 L (8.4-10.2) mg/dL AST 45 H (14-36) U/L Total Protein 5.5 L (6.3-8.2) g/dL Albumin 2.9 L (3.5-5.0) g/dL Assessment and Plan Plan: 1 Coronary artery disease status post coronary artery bypass grafting 4 utilizing the MARTINEZ to the LAD, saphenous vein grafts to the OM1, OM 3, PDA. Postoperative day #4. The patient is hemodynamically stable. The patient is on no pressors. The chest tubes have been all removed. Pacemaker wires are also removed. The patient received a dose of diuretic yesterday and the chest x-ray from today shows further improvement in the volume status 2 Anemia as expected outcome of surgery, status post 6 units packed red blood cells, hemoglobin today is at 9.0 3 Hypertension 4 Hyperlipidemia 5 Diabetes mellitus currently on size Coverage. She is also on Levemir long- acting insulin coverage. 6 Hypothyroidism 7 Lifelong nonsmoker Plan: Use of incentive spirometer Chest x-ray from today was reviewed and there is improvement in the volume status Hemoglobin stable at 9.0 Continue close hemodynamic monitoring Encouraged regarding the increased use of the incentive spirometer and cough and deep breathing exercises Increase her activity as tolerated, continue bronchodilators We will continue to follow and make further recommendations based on her clinical status
--- NOTE | 2020-11-01 07:32 | P.PN ---
Subjective Progress Note Date: 11/01/20 Principal diagnosis: Symptomatic coronary artery disease with left main disease, unstable angina. 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 Endoscopic harvesting of bilateral greater saphenous veins. Epi-aortic ultrasound and intraoperative transesophageal echocardiogram. Ligation of the left atrial appendage using a 35 mm AtriClip Postoperative acute blood loss anemia and thrombocytopenia, expected given hemodilution and cardiopulmonary bypass pump The patient is currently sitting up in the recliner in the intensive care unit in no acute distress. States pain is well-controlled on current medication regimen, requiring no narcotics. Denies shortness of breath. Remains in sinus rhythm with heart rate in the low 90s. Hemodynamically stable. She is actively using incentive spirometry. He ambulated in the hallway yesterday without difficulty. Family was updated yesterday via phone and all questions answered. Patient states she feels ready to go home. No new concerns. Objective - Vital Signs Vital signs: Vital Signs Temp 98.7 F 11/01/20 04:00 Pulse 88 11/01/20 04:00 Resp 18 11/01/20 04:00 BP 124/75 11/01/20 04:00 Pulse Ox 94 L 11/01/20 04:00 Intake & Output 10/31/20 11/01/20 11/01/20 18:59 06:59 18:59 Intake Total 140 Output Total 2300 450 Balance -2160 -450 Weight 83.4 kg 82.9 kg Intake: Oral 140 Output: Drainage 50 Left Thigh 50 Urine 2250 450 Other: Voiding Method Bedside Commode Bedside Commode # Voids 2 ABP, PAP, CO, CI - Last Documented Arterial Blood Pressure 112/58 Pulmonary Artery Pressure 30/12 Cardiac Output 3.7 Cardiac Index 2.2 - Constitutional General appearance: Present: cooperative, no acute distress, obese - Respiratory Details: Lungs sounds diminished in the bases bilaterally. Respirations even, nonlabored. Currently on room air with oxygen saturation 954%. Able to achieve 1000 mL on her incentive spirometry this morning. Strong nonproductive cough. - Cardiovascular Details: S1, S2 present. Regular rate and rhythm, sinus rhythm on telemetry with heart rate in the 90s. Sternum stable. Palpable peripheral pulses bilaterally. Trace generalized edema present. No calf pain or tenderness noted. Heart hugger in place with patient demonstrating appropriate use. Antiembolism stockings, SCDs present. - Gastrointestinal Gastrointestinal Comment(s): Abdomen soft, nontender, nondistended. Active bowel sounds present 4 quadrants. Tolerating diet. Positive small bowel movement yesterday per patient although not documented - Genitourinary Genitourinary Comment(s): Patient continues to void 300-400 mL at a time, 2700 mL in the last 24 hours - Integumentary Integumentary Comment(s): Skin is warm and dry with evidence of good perfusion. Anterior chest incision well approximated and covered with dry intact dressing. Left lower extremity EVH site well approximated - Neurologic Neurologic: Present: CNII-XII intact - Musculoskeletal Musculoskeletal: Present: gait normal, strength equal bilaterally - Psychiatric Psychiatric: Present: A&O x's 3, appropriate affect, intact judgment & insight - Allied health notes Allied health notes reviewed: nursing - Labs CBC & Chem 7: 11/01/20 03:11 11/01/20 03:11 Labs: Abnormal Lab Results - Last 24 Hours (Table) 10/31/20 10/31/20 11/01/20 Range/Units 11:48 20:46 02:57 WBC (3.8-10.6) k/uL RBC (3.80-5.40) m/uL Hgb (11.4-16.0) gm/dL Hct (34.0-46.0) % Plt Count (150-450) k/uL Sodium (137-145) mmol/L BUN (7-17) mg/dL Creatinine (0.52-1.04) mg/dL Glucose (74-99) mg/dL POC Glucose (mg/dL) 162 H 197 H 146 H (75-99) mg/dL Calcium (8.4-10.2) mg/dL AST (14-36) U/L Total Protein (6.3-8.2) g/dL Albumin (3.5-5.0) g/dL 11/01/20 11/01/20 11/01/20 Range/Units 03:11 03:11 06:47 WBC 13.2 H (3.8-10.6) k/uL RBC 2.85 L (3.80-5.40) m/uL Hgb 9.0 L (11.4-16.0) gm/dL Hct 26.3 L (34.0-46.0) % Plt Count 113 L (150-450) k/uL Sodium 134 L (137-145) mmol/L BUN 20 H (7-17) mg/dL Creatinine 1.06 H (0.52-1.04) mg/dL Glucose 145 H (74-99) mg/dL POC Glucose (mg/dL) 149 H (75-99) mg/dL Calcium 8.3 L (8.4-10.2) mg/dL AST 45 H (14-36) U/L Total Protein 5.5 L (6.3-8.2) g/dL Albumin 2.9 L (3.5-5.0) g/dL - Imaging and Cardiology Chest x-ray: image reviewed Assessment and Plan Assessment: 1. Symptomatic coronary artery disease with left main disease, unstable angina, status post four-vessel CABG 2. Hyperkalemia on admission, resolved 3. Acute kidney injury 4. Hypertension 5. Hyperlipidemia, treated, cholesterol 124, LDL 71 6. Dhn-xsrlivu-qabgnodrz diabetes with A1c 6.5% 7. Hypothyroid 8. Obesity 9. 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 Never smoker, FEV1 102% of predicted 11. Family history of premature coronary artery disease with a brother having stents at less than 55 years old 12. Postoperative acute blood loss anemia and thrombocytopenia, expected Plan: 1. Continue low dose ASA, statin, Plavix, beta sobeida therapy. Will increase beta sobeida therapy as tolerated 2. Encourage incentive spirometry use 10 times every hour while awake. Bronchodilators per pulmonology 3. Increase activity, ambulate as tolerated. PT/OT/cardiac rehab following 4. Will monitor daily labs and a chest x-rays. Electrolyte replacement per protocol. No further transfusion. 5. Encourage oral intake. Supplements ordered. 6. Insulin management per primary care service 7. Pain control with current medication regimen. No narcotics 8. First postop shower today 9. Strict accurate intake and output. Daily weights. 10. Continue to encourage risk factor modification 11. Transfer orders placed for 3 S. cardiac stepdown unit yesterday. May transfer when bed available 12. Discharge planning in progress. Anticipate discharge to home with home care in this afternoon versus tomorrow morning. Appreciate recommendations from primary care for discharge diabetic management 13. More recommendations to follow based on patient's progress Time with Patient: Greater than 30
--- NOTE | 2020-11-01 07:36 | XR ---
EXAMINATION TYPE: XR chest 2V DATE OF EXAM: 11/01/2020 COMPARISON: Chest x-ray 10/31/2020 HISTORY: Post cardiac surgery, chest tube removal TECHNIQUE: Frontal and lateral views of the chest are obtained. FINDINGS: There is been interval removal of the left-sided chest tube. No evident pneumothorax or pl eural effusion. Patient is post median sternotomy, there are overlying artifacts. Left atrial appenda ge clipping placement is noted. There is some improvement in aeration. Calcified gallstones are prese nt in the right upper quadrant. Cardiac mediastinal silhouette shows an enlarged heart. IMPRESSION: No evident complication status post chest tube removal.
[2020-11-01] MEDS: ATORVASTATIN 40 MG TAB PO SCH (08:14)
[2020-11-01] MEDS: ASPIRIN 81 MG PO SCH (08:14)
[2020-11-01] MEDS: CLOPIDOGREL 75 MG TAB PO SCH (08:15)
[2020-11-01] MEDS ORDERED: FUROSEMIDE 10 MG/ML 4 ML VIAL IV STA (08:22)
[2020-11-01] MEDS ORDERED: FONDAPARINUX 2.5 MG/0.5 ML SYRINGE SQ SCH (09:00)
[2020-11-01] MEDS ORDERED: MAGNESIUM HYDROXIDE 2,400 MG/10 ML CUP PO SCH (09:00)
[2020-11-01] MEDS ORDERED: METOPROLOL TARTRATE 25 MG TAB PO SCH (09:00)
[2020-11-01] MEDS: IPRATROPIUM-ALBUTEROL 3 ML NEB INHALATION SCH ×3 (09:15→15:53)
[2020-11-01] MEDS: METOPROLOL TARTRATE 25 MG TAB PO STA ×2 (11:19→11:27)
[2020-11-01] MEDS ORDERED: METOPROLOL TARTRATE 25 MG TAB PO STA (11:27)
[2020-11-01 11:38] LABS: Glucose,Whole Blood 166 mg/dL (75-99)
[2020-11-01 11:39] VITALS: BP 113/72; RESP 16; TEMP 98.8
--- NOTE | 2020-11-01 11:59 | P.DS ---
Providers Date of admission: 10/26/20 11:17 Expected date of discharge: 11/01/20 Attending physician: Brett Mills Consults: 10/24/20 09:58 Consult Physician Routine Consulting Provider: Dom Winston Consult Reason/Comments: CP Do you want consulting provider notified?: Yes 10/25/20 09:43 Consult Physician Routine Consulting Provider: Brett Mills Consult Reason/Comments: triple vessel ds Do you want consulting provider notified?: Already Contacted 10/26/20 07:00 Consult Physician Routine Consulting Provider: Barrie Richards Consult Reason/Comments: preop cabg Do you want consulting provider notified?: Already Contacted 10/26/20 13:17 Consult to Anesthesia Routine Consulting Provider: Anesthesia,Services Consult Reason/Comments: Cardiac Surgery Pre-Op 10/28/20 15:08 Consult Physician Routine Consulting Provider: Jarett Gomez Jr Consult Reason/Comments: Medical Management Do you want consulting provider notified?: Yes [facility]: FINAL DIAGNOSIS: 1. Symptomatic coronary artery disease with left main disease, unstable angina 2. Hypertension 3. Hyperlipidemia, treated, cholesterol 124, LDL 71 4. Nma-aghgxyk-myqtvrjhm diabetes with hemoglobin A1c 6.5% 5. Hypothyroid 6. Obesity 7. 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 Never smoker, FEV1 102% of predicted 9. Family history of premature coronary artery disease 10. Acute kidney injury with hyperkalemia on admission 11. Postoperative acute blood loss anemia and thrombocytopenia, expected PRINCIPAL PROCEDURE: 1. Coronary artery bypass grafting 4 vessels, left internal mammary artery to the left anterior descending artery, reverse saphenous vein graft to the first obtuse marginal artery, reverse saphenous vein graft to the third obtuse marginal artery, reverse saphenous vein graft to the posterior descending artery 2. Endoscopic harvesting of bilateral greater saphenous veins 3. Epi-aortic ultrasound and intraoperative transesophageal echocardiogram 4. Ligation of the left atrial appendage using a 35 mm AtriClip HISTORY OF PRESENT ILLNESS: This is a 75-year-old very active female who follows on an outpatient basis with Dr. Gomez for primary care and Dr. RADHA Duran for cardiology. She had a stress test in August 2020 which was abnormal demonstrating evidence of inferior wall reversible defect and hypokinesia with fixed anterior wall defect. She was recommended at that time to undergo heart catheterization for further evaluation for coronary artery disease, however she deferred timing of the heart catheterization due to current pandemic. She presented to [facility] emergency room 10/24/2020 with complaints of left arm pain and numbness, occasional dizziness, and profuse vomiting 24 hours prior to admission. She denied any chest pain or shortness of breath or any other symptomatology. In the emergency room chest x-ray was completed demonstrated no acute cardiopulmonary process. EKG demonstrated normal sinus rhythm without ST elevation. Due to her symptoms and history of abnormal stress test she was kept in observation and recommended to undergo heart catheterization which demonstrated short tight left main with 70% stenosis, mid LAD stenosis 70%, ostial circumflex stenosis 80-85%, and right coronary artery stenosis 80%. Consultation was placed to Dr. Mills from cardiothoracic surgery. She was recommended to undergo coronary artery bypass surgery. The usual perioperative course was discussed in detail with the patient and her family, all risks and benefits were explained, all questions were answered, and consent was obtained to proceed with surgery. The patient was kept inpatient due to the nature of her disease process and preoperative testing was initiated. HOSPITAL COURSE: The patient was brought to the preoperative area on 10/28/2020, prepared in the usual fashion, and subsequently taken to the operating room where Dr. Mills performed triple-vessel CABG. Upon completion of surgery the patient was transferred to the cardiovascular intensive care unit where she was recovered and monitored hemodynamically. She was extubated, all lines, tubes, and drips were discontinued when appropriate, and transfer orders were placed for 3 S. cardiac stepdown unit, however there was no bed availability and the patient remained on ICU as a stepdown patient until discharge. She did experience acute blood loss anemia and received transfusion of packed red blood cells. Her oxygen was titrated down, she continued to work with physical and occupational therapy, she was tolerating oral diet, her pain was controlled, and she was ready to be discharged to home with [facility] care on postoperative day #4. She received written and verbal instruction regarding her medications, activity restrictions, signs and symptoms requiring physician notification, and follow-up appointments. COMPLICATIONS: The patient experienced postoperative acute blood loss anemia and thrombocytopenia, which were expected and were treated accordingly. Patient Condition at Discharge: Stable Plan - Discharge Summary Discharge Rx Participant: No New Discharge Prescriptions: New Furosemide [Lasix] 20 mg PO DAILY #5 tab Atorvastatin [Lipitor] 40 mg PO DAILY #30 tab Metoprolol Tartrate [Lopressor] 100 mg PO BID #60 tab Clopidogrel [Plavix] 75 mg PO DAILY #30 tab Pantoprazole [Protonix] 40 mg PO AC-BRKFST #30 tablet.[address] Bynum-Docusate Sodium [Senokot-S] 2 each PO HS PRN #14 tab PRN Reason: Constipation Acetaminophen Tab [Tylenol] 650 mg PO Q4HR PRN tab PRN Reason: Fever And/ Or Pain Continue Aspirin EC [Ecotrin Low Dose] 81 mg PO HS #30 tab sitaGLIPtin [Januvia] 100 mg PO PC-BRKFST #30 tab Levothyroxine Sodium [Synthroid] 112 mcg PO AC-BRKFST #30 tab Discontinued atenoloL [Atenolol] 25 mg PO AC-BRKFST Atorvastatin [Lipitor] 40 mg PO WESA@2100 Valsartan/Hydrochlorothiazide [Valsartan-Hctz 160-12.5 mg Tab] 1 tab PO AC- BRKFST Discharge Medication List Acetaminophen Tab [Tylenol] 650 mg PO Q4HR PRN tab 11/01/20 [Rx] Aspirin EC [Ecotrin Low Dose] 81 mg PO HS #30 tab 11/01/20 [Rx] Atorvastatin [Lipitor] 40 mg PO DAILY #30 tab 11/01/20 [Rx] Clopidogrel [Plavix] 75 mg PO DAILY #30 tab 11/01/20 [Rx] Furosemide [Lasix] 20 mg PO DAILY #5 tab 11/01/20 [Rx] Levothyroxine Sodium [Synthroid] 112 mcg PO AC-BRKFST #30 tab 11/01/20 [Rx] Metoprolol Tartrate [Lopressor] 100 mg PO BID #60 tab 11/01/20 [Rx] Pantoprazole [Protonix] 40 mg PO AC-BRKFST #30 tablet. 11/01/20 [Rx] Sennoirenas-Docusate Sodium [Senokot-S] 2 each PO HS PRN #14 tab 11/01/20 [Rx] sitaGLIPtin [Januvia] 100 mg PO PC-BRKFST #30 tab 11/01/20 [Rx] Follow up Appointment(s)/Referral(s): Aureliano Duran MD [Family Provider] - 11/09/20 2:30 pm [facility] ,Cardiac [NON-STAFF] - 4 Weeks (You will receive a phone call approximately 4 weeks after surgery for initial cardiac rehab evaluation) Jarett Gomez Jr, DO [Primary Care Provider] - 11/15/20 9:30 am Bharti Watson NPC [Nurse Practitioner] - 12/01/20 2:45 pm Leonard Prather NPC [Nurse Practitioner] - 11/07/20 11:00 am (will see in the surgeon's office behind the hospital, [facility], [address], [address]) [facility], [NON-STAFF] - 1-2 Days Brett Mills MD [STAFF PHYSICIAN] - 11/28/20 9:30 am () Ambulatory/Diagnostic Orders: Complete Blood Count w/diff [LAB.AMB] Time Frame: 3 Days, Location: None Selected Comprehensive Metabolic Panel [LAB.AMB] Time Frame: 3 Days, Location: None Selected Patient Instructions/Handouts: Chest Pain (ED) Activity/Diet/Wound Care/Special Instructions: DISCHARGE INSTRUCTIONS: 1. No driving for 4 weeks, or until physician gives their ok. 2. The patient should sleep in their own bed, no medical bed needed. 3. Stairs are not an issue. If the bedroom is upstairs, it is advised that the patient go up at night and down in the morning for the first week. Go slowly, using handrail and take 1 step at a time. 4. SOPHIA hose are to be worn for 30 days or until physician discontinues. 5. Heart hugger is to be worn 100% of the time until physician discontinues.(except when showering) 6. No lifting, pushing, or pulling more than 10 pounds for 12 weeks. The physician will advise of any restriction changes. 7. The patient is expected to continue the prescribed walking program. 8. Continue pain control per as needed orders. 9. Continue with incentive spirometry and splinting/heart hugger until otherwise directed by the physician. 10. Must shower daily using liquid antibacterial soap and a separate white washcloth for each individual incision. 11. Routine sternal incision care. No powders, lotions, ointments on incisions. No dressings are necessary on incisions unless they are draining. Dermabond tape is to remain on sternal incision until surgeon follow-up. 12. Please call surgeon/DIRECTOR [employer]SEL[employer] for temp greater than 101 F or purulent drainage from incisions. 13. All prescriptions given by surgeon for 30 days. Refills need to be filled through manager application development/primary care physician. 14. A Red armband has been placed on the patient. It should be worn for 30 days post surgery and will be removed by the cardiac surgeons. If an ER visit is necessary, please make sure the number on the Red armband is called. 15. You have been referred to and are expected to begin Cardiac Rehab in approximately 4-6 weeks. 16. Please keep a log of your blood sugars and bring with you to your follow-up appointment with Dr. Gomez [facility] TO PROVIDE: RN SKILLED HOME CARE SERVICES FOR POST-OP SURGICAL PATIENTS WITH THE FOLLOWING: Coronary Artery Bypass Surgery (CABG) RN TO CONTINUE EDUCATION FROM ``ROAD TO A HEALTH HEART PATIENT EDUCATION MANUAL (GIVEN TO PATIENT IN THE HOSPITAL) MEDICATION RECONCILIATION WITH EDUCATION NEEDED ON FIRST HOME VISIT EMPHASIZE IMPORTANCE OF WEARING BREAST SUPPORT/HEART HUGGER ENCOURAGE USE OF INCENTIVE SPIROMETER 10 X EVERY HOUR WHILE AWAKE ENCOURAGE UTILIZATION OF LOWER EXTREMITY COMPRESSION STOCKINGS/SOPHIA HOSE and ELEVATE LEGS ABOVE LEVEL OF HEART WHILE AT REST. ENCOURAGE AMBULATION 3-5x/day INCREASING TOLERATES, WHILE AVOIDING EXTREMES IN TEMPERATURE FREQUENCY: RN TO OPEN THE PATIENT WITHIN 24 HOURS OF DISCHARGE FROM THE HOSPITAL WITH TELEHEALTH [place] [facility] TO VISIT 2-3 X A WEEK FOR 4 WEEKS ESTABLISHED BY PATIENT NEEDS. LABORATORY: CBC, CMP TO BE DRAWN ON THE THIRD DAY HOME, (RAN STAT) FAX RESULTS TO [phone]. TELEHEALTH PARAMETERS: WEIGHT: NOTIFY MD OF WEIGHT GAIN OF 2 LBS IN 24 HOURS OR 5 LBS IN ONE WEEK HR: NOTIFY MD OF HR <55 BPM OR HR>100 BPM BP: NOTIFY MD IF BP <90/55 OR BP>140/100 O2 SAT: NOTIFY MD IF PO2<93% ON ROOM AIR SEND TELEHEALTH REPORT TO BALANCE SCREWHEAD POLISHER AND CARDIOVASCULAR SURGEON THE FIRST WEEK OF CARE AND THEN BI-WEEKLY. PLEASE ADDITIONALLY COMMUNICATE ANY ABNORMALS AND NEW FINDINGS TO THE SURGEONS OFFICE. For any questions or concerns please call physician relations representative Gabby @ or Don @ Discharge Disposition: HOME WITH HOME HEALTH SERVICES
[2020-11-01] MEDS ORDERED: bisacodyL 10 MG SUPP RECTAL SCH (12:00)
[2020-11-01 14:42] VITALS: PULSE 88
--- NOTE | 2020-11-01 15:41 | P.PN ---
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 Developed left arm pain earlier this morning, accompanied by numbness in left upper chest pressure, proceeded to the ER. Denies nausea vomiting or diarrhea. Denies diaphoresis. Denies fever or chills. Denies lightheadedness, dizziness or focal deficits. EKG reported sinus rhythm, inferior infarct age undetermined, troponins negative 3 ,chest x- ray reported no acute cardiopulmonary process. Afebrile, maintaining O2 sats in the high 90s on room air .hematology unremarkable, INR 1, sodium 135, potassium 5.5, BUN 20, creatinine 0.98, glucose 196, magnesium 1.7. Elevated AST of 39. Evaluated by cardiology and patient is scheduled for cardiac catheterization in the a.m. Underwent cardiac catheterization this morning, reporting left main 70% stenosis, mid LAD 70% stenosis, circumflex 70-80% stenosis and RCA 70-80% stenosis. Cardiothoracic surgery consulted regarding CABG. Renal function mildly elevated 1.07, maintained on IV fluid hydration. Currently denies any chest pain, palpitations or shortness of breath. Telemetry sinus rhythm. Blood sugars controlled. 10/26/2020 ambulating, tolerating exertion well. No further chest pain reported. Denies palpitations or shortness of breath. Denies lightheadedness or dizziness or focal deficits. Scheduled for CABG on Saturday. Post cardiac cath, creatinine mildly trending up. Maintaining O2 sats in the 90s on room air. Afebrile. 10/27/2020 scheduled for CABG tomorrow. Creatinine trending down 1.1. Good diet intake with no nausea vomiting or diarrhea. Ambulating, tolerating exertion well. Maintaining O2 sats in the 90s on room air. Continues on statin, beta sobeida and aspirin. Denies chest pain, palpitations or shortness of breath. Incentive spirometer up to 1500. Telemetry sinus bradycardia, heart rate in the 50s. 10/31/2020 status post CABG, postop day #3. Received one unit of RBCs yesterday with current hemoglobin at 8.9. Telemetry sinus rhythm. Chest x-ray reporting increasing interstitial opacity,pulmonary vascular congestion/atelectasis. Chest tubes discontinued. Maintaining O2 sats in the 90s on room air, IS up to 500ml. Patient reports small bowel movement this morning. Blood sugars controlled. 11/01/2020 significant clinical improvement. Telemetry sinus rhythm. Blood sugars controlled. Creatinine 1.06. Afebrile, T-max 99. Chest x-ray reporting improvement in aeration, atelectasis. Denies chest pain, palpitations. Denies shortness of breath. Passing flatus, no bowel movement. Objective - Vital Signs Vital signs: Vital Signs Temp 98.8 F 11/01/20 11:30 Pulse 88 11/01/20 14:00 Resp 16 11/01/20 14:00 BP 113/72 11/01/20 10:00 Pulse Ox 97 11/01/20 11:30 Intake & Output 10/31/20 11/01/20 11/01/20 18:59 06:59 18:59 Intake Total 140 150 Output Total 2300 450 1250 Balance -2160 -450 -1100 Weight 83.4 kg 82.9 kg Intake: Oral 140 150 Output: Drainage 50 50 Left Thigh 50 50 Urine 2250 450 1200 Other: Voiding Method Bedside Commode Bedside Commode Toilet # Voids 2 ABP, PAP, CO, CI - Last Documented Arterial Blood Pressure 112/58 Pulmonary Artery Pressure 30/12 Cardiac Output 3.7 Cardiac Index 2.2 - Exam PHYSICAL EXAM: VITAL SIGNS: [As above] GENERAL: Alert and oriented 3, sitting up in chair, wearing Heart Hugger, no acute distress HEENT: Conjunctivae normal. eyes normal. Oral mucosa moist. NECK: No JVD. No thyroid enlargement. CARDIOVASCULAR: S1, S2 regular. No audible murmur. RESPIRATION: Breath sounds diminished in the bases. Fine bibasilar crackles, no rhonchi, no wheezing. ABDOMEN: Soft, nontender . No guarding. no masses palpable. Positive Bowel sounds. LEGS: Minimal edema, no calf tenderness NERVOUS SYSTEM: Cranial N 2-12 grossly normal. No focal deficits. Strength and sensation grossly intact.. Skin: Warm and dry, no rash - Labs CBC & Chem 7: 11/01/20 03:11 11/01/20 03:11 Labs: Abnormal Lab Results - Last 24 Hours (Table) 10/31/20 11/01/20 11/01/20 Range/Units 20:46 02:57 03:11 WBC 13.2 H (3.8-10.6) k/uL RBC 2.85 L (3.80-5.40) m/uL Hgb 9.0 L (11.4-16.0) gm/dL Hct 26.3 L (34.0-46.0) % Plt Count 113 L (150-450) k/uL Sodium (137-145) mmol/L BUN (7-17) mg/dL Creatinine (0.52-1.04) mg/dL Glucose (74-99) mg/dL POC Glucose (mg/dL) 197 H 146 H (75-99) mg/dL Calcium (8.4-10.2) mg/dL AST (14-36) U/L Total Protein (6.3-8.2) g/dL Albumin (3.5-5.0) g/dL 11/01/20 11/01/20 11/01/20 Range/Units 03:11 06:47 11:36 WBC (3.8-10.6) k/uL RBC (3.80-5.40) m/uL Hgb (11.4-16.0) gm/dL Hct (34.0-46.0) % Plt Count (150-450) k/uL Sodium 134 L (137-145) mmol/L BUN 20 H (7-17) mg/dL Creatinine 1.06 H (0.52-1.04) mg/dL Glucose 145 H (74-99) mg/dL POC Glucose (mg/dL) 149 H 166 H (75-99) mg/dL Calcium 8.3 L (8.4-10.2) mg/dL AST 45 H (14-36) U/L Total Protein 5.5 L (6.3-8.2) g/dL Albumin 2.9 L (3.5-5.0) g/dL Assessment and Plan Assessment: Acute chest pain in a patient with prior abnormal stress test, Status post cardiac catheterization reporting multivessel CAD with left main disease. Status post CABG. Acute postoperative Anemia, expected outcome, status post 6 units packed RBCs Acute renal failure post cardiac catheterization, improved Hyperkalemia, resolved Diabetes mellitus, hemoglobin A1c 6.5 Hypertension Hyperlipidemia Hypothyroidism Obesity, BMI 31.2 Atelectasis Plan: Continue on current medication regime ,monitoring and symptomatic treatment. Discharge planning in progress. Maintain aggressive pulmonary toileting with incentive spirometer reinforced. Resume Januvia, close monito ring of Accu-Cheks; Accu-Cheks before meals and at bedtime, maintain log intake to follow-up visit with PCP for further recommendations. Close monitoring of renal function, coags and electrolytes. Follow-up with PCP in one week. The impression and plan of care has been dictated as directed. : I performed a history and examination of this patient, discussed the same with the dictator. I agree with the dictator's note ,documented as a scribe. Any additional findings or plans will be noted.
[2020-11-01] MEDS ORDERED: METOPROLOL TARTRATE 50 MG TAB PO SCH (21:00)
--- NOTE | 2020-11-02 10:57 | P.ARTDOP ---
Arterial Doppler Bilateral radial artery testing: Doppler waveforms do suggest 26 mm [id number] pressure gradient. Digital plethysmography with radial artery compression shows a loss of signal but no change in pressure of significance Imaging shows the right radial to measure 2.4 x 2.7 mm proximally, 2.4 x 2.2 mm mid, 2.4 x 2.3 mm distally. The left radial measures 2.6 x 2.7 mm proximally, 2.0 x 2.1 mm mid and 2.2 x 2.0 mm distally. Impression: Both radials appear to be usable. Clinical correlation recommended.
--- NOTE | 2020-11-02 10:58 | P.ARTDOP ---
Arterial Doppler LOWER EXTREMITY ARTERIAL DOPPLER: DATE OF SERVICE: 10/26/2020 Reason for study: Preop CABG. Doppler waveforms: Multiphasic bilaterally throughout with excellent toe waveforms. Pulse volume recording: []. Pressure gradients: None. Ankle-brachial indices: Greater than 1 bilaterally. Toe brachial indices: 0.98 on the right, 0.96 on the left Impression: Normal study.
== END 2020-11-01 16:16 | disposition home health service (06) | DRG 234 ==
LOC: EC 08:02 → 1SOBS 09:58 → OBSVTOIN 10-26 11:17 → 2SICU 10-28 08:47
PROVIDERS: ADMIT Family Medicine; ATTEND Surgery
PROC: B2111ZZ Fluoroscopy of Multiple Coronary Arteries using Low Osmolar Contrast (ICD-10-PCS; 2020-10-25)
PROC: 4A023N7 Measurement of Cardiac Sampling and Pressure, Left Heart, Percutaneous Approach (ICD-10-PCS; 2020-10-25)
PROC: 03HY32Z Insertion of Monitoring Device into Upper Artery, Percutaneous Approach (ICD-10-PCS; 2020-10-28)
PROC: 4A133J1 Monitoring of Arterial Pulse, Peripheral, Percutaneous Approach (ICD-10-PCS; 2020-10-28)
PROC: 4A133B1 Monitoring of Arterial Pressure, Peripheral, Percutaneous Approach (ICD-10-PCS; 2020-10-28)
PROC: 06BP4ZZ Excision of Right Saphenous Vein, Percutaneous Endoscopic Approach (ICD-10-PCS; principal; 2020-10-28 08:00)
PROC: 0212093 Bypass Coronary Artery, Three Arteries from Coronary Artery with Autologous Venous Tissue, Open Approach (ICD-10-PCS; principal; 2020-10-28 08:00)
PROC: B24BZZ4 Ultrasonography of Heart with Aorta, Transesophageal (ICD-10-PCS; principal; 2020-10-28 08:00)
PROC: 06BQ4ZZ Excision of Left Saphenous Vein, Percutaneous Endoscopic Approach (ICD-10-PCS; principal; 2020-10-28 08:00)
PROC: 02L70CK Occlusion of Left Atrial Appendage with Extraluminal Device, Open Approach (ICD-10-PCS; principal; 2020-10-28 08:00)
PROC: 02100Z9 Bypass Coronary Artery, One Artery from Left Internal Mammary, Open Approach (ICD-10-PCS; principal; 2020-10-28 08:00)
PROC: 30233N1 Transfusion of Nonautologous Red Blood Cells into Peripheral Vein, Percutaneous Approach (ICD-10-PCS; 2020-10-30)
DX: I25.110 Atherosclerotic heart disease of native coronary artery with unstable angina pectoris (principal); D62 Acute posthemorrhagic anemia; N17.9 Acute kidney failure, unspecified; J98.11 Atelectasis; E11.65 Type 2 diabetes mellitus with hyperglycemia; D69.6 Thrombocytopenia, unspecified; R94.39 Abnormal result of other cardiovascular function study; E03.9 Hypothyroidism, unspecified; R00.1 Bradycardia, unspecified; Z20.822 Contact with and (suspected) exposure to COVID-19; E87.5 Hyperkalemia; E78.5 Hyperlipidemia, unspecified; I10 Essential (primary) hypertension; E07.9 Disorder of thyroid, unspecified; G89.29 Other chronic pain; M54.2 Cervicalgia; E66.9 Obesity, unspecified; Z68.31 Body mass index [BMI] 31.0-31.9, adult; Z98.891 History of uterine scar from previous surgery; Z96.652 Presence of left artificial knee joint; Z88.8 Allergy status to other drugs, medicaments and biological substances; Z79.82 Long term (current) use of aspirin; Z79.899 Other long term (current) drug therapy; Z79.890 Hormone replacement therapy; Z79.84 Long term (current) use of oral hypoglycemic drugs; Z82.49 Family history of ischemic heart disease and other diseases of the circulatory system; Z82.3 Family history of stroke; Z98.890 Other specified postprocedural states
CPT/HCPCS: 36415; 71045; 71046; 71250; 80048; 80053; 80061; 80074; 81001; 82330; 82805; 83036; 83735; 84132; 84443; 84484; 85025; 85027; 85520; 85610; 85730; 86022; 86850; 86891; 86900; 86901; 86920; 87070; 87635; 93005; 93306; 93458; 93880; 93922; 93923; 93930; 93970; 94002; 94150; 94640; 94760; 96374; 99285

== ENCOUNTER 2022-05-23 17:23 | Emergency (ER) | payer MEDICARE ==
[2022-05-23 18:12] LABS: Basophils # (A) 0.1 k/uL (0-0.2); Basophils % (A) 1 %; Eosinophils # (A) 0.1 k/uL (0-0.7); Eosinophils % (A) 2 %; HCT 38.4 % (34.0-46.0); HGB 12.5 gm/dL (11.4-16.0); Lymphocytes # (A) 0.9 k/uL (1.0-4.8); Lymphocytes % (A) 14 %; MCH 29.5 pg (25.0-35.0); MCHC 32.7 g/dL (31.0-37.0); MCV 90.4 fL (80.0-100.0); Monocytes # (A) 0.2 k/uL (0-1.0); Monocytes % (A) 4 %; Neutrophils # (A) 5.2 k/uL (1.3-7.7); Neutrophils % (A) 79 %; Platelet Count 200 k/uL (150-450); RBC 4.25 m/uL (3.80-5.40); RDW 14.1 % (11.5-15.5); WBC 6.7 k/uL (3.8-10.6)
[2022-05-23] MEDS ORDERED: ACETAMINOPHEN TAB 500 MG TAB PO STA (18:20)
[2022-05-23] MEDS ORDERED: SODIUM CHLORIDE 0.9% 1,000 ML IV STA (18:20)
[2022-05-23 18:22] LABS: Albumin 4.5 g/dL (3.5-5.0); Calcium 9.8 mg/dL (8.4-10.2); Total Bilirubin 0.6 mg/dL (0.2-1.3)
--- NOTE | 2022-05-23 18:47 | ED ---
General Adult HPI - General Chief complaint: Altered Mental Status Stated complaint: mental health Time Seen by Provider: 05/23/22 18:20 Source: patient Mode of arrival: ambulatory Limitations: no limitations - History of Present Illness Initial comments: Dictation was produced using [employer] dictation software. please excuse any grammatical, word or spelling errors. Chief Complaint: 77-year-old female presents emergency department for dizziness and fever History of Present Illness: 77-year-old female presents emergency department for dizziness and fever. Today she was noted to have an episode of severe dizziness. Patient also having fever. Denies any cough. They visited [place] recently. Family at bedside reports that she did appear to be significant family ill today. She does have a mild cough. Denies any shortness of breath or chest pain. Patient has past medical history of coronary artery disease, diabetes, dyslipidemia and hypertension. Patient had a positive at home over test. The ROS documented in this emergency department record has been reviewed and confirmed by me. Those systems with pertinent positive or negative responses have been documented in the HPI. All other systems are other negative and/or noncontributory. PHYSICAL EXAM: General Impression: Alert and oriented x3, not in acute distress HEENT: Normocephalic atraumatic, extra-ocular movements intact, pupils equal and reactive to light bilaterally, mucous membranes moist. Cardiovascular: Heart regular rate and rhythm Chest: Able to complete full sentences, no retractions, no tachypnea Abdomen: abdomen soft, non-tender, non-distended, no organomegaly Musculoskeletal: Pulses present and equal in all extremities, no peripheral edema Motor: no focal deficits noted Neurological: CN II-XII grossly intact, no focal motor or sensory deficits noted Skin: Intact with no visualized rashes Psych: Normal affect and mood ED course: Patient 77-year-old female presents with dizziness and fever. Patient states that she is to have some mild respiratory symptoms that began just today. Patient's at the bedside was sick yesterday. Vital signs upon arrival shows temperature 11.2, rest of vital signs within acceptable limi ts. Return evaluation obtained. CBC, metabolic panel is unremarkable. Urinalysis is negative. Rotavirus test is positive. Patient observed in emergency department for approximately 3 hours and 20 minutes reevaluated bedside at 8:45 PM found to be in stable medical condition. Patient is a candidate for antiviral oral medications to treat COVID-19. Prescription sent to local pharmacy. EKG interpretation: Ventricular rate 89, sinus rhythm,. Interval 129, QS 122, QTC 410. No MA prolongation, no QTC prolongation, no ST or T-wave changes noted. EKG compared to 03/24/2021 showing no changes. Overall, this EKG is unremarkable - Related Data Previous Rx's Medication Instructions Recorded Acetaminophen Tab [Tylenol] 650 mg PO Q4HR PRN tab 11/01/20 Aspirin EC [Ecotrin Low Dose] 81 mg PO HS #30 tab 11/01/20 Atorvastatin [Lipitor] 40 mg PO DAILY #30 tab 11/01/20 Clopidogrel [Plavix] 75 mg PO DAILY #30 tab 11/01/20 Furosemide [Lasix] 20 mg PO DAILY #5 tab 11/01/20 Levothyroxine Sodium [Synthroid] 112 mcg PO AC-BRKFST #30 tab 11/01/20 Metoprolol Tartrate [Lopressor] 100 mg PO BID #60 tab 11/01/20 Pantoprazole [Protonix] 40 mg PO AC-BRKFST #30 tablet.dr 11/01/20 Sennosides-Docusate Sodium 2 each PO HS PRN #14 tab 11/01/20 [Senokot-S] sitaGLIPtin [Januvia] 100 mg PO PC-BRKFST #30 tab 11/01/20 Furosemide [Lasix] 20 mg PO DAILY #3 tab 11/07/20 Sertraline HCl [Zoloft] 12.5 mg PO DAILY #30 tab 11/07/20 Nirmatrelvir/Ritonavir [Paxlovid 1 each PO BID #10 tab 05/23/22 150-100 mg Pack (Eua)] Allergies Allergy/AdvReac Type Severity Reaction Status Date / Time epinephrine AdvReac Rapid Verified 05/23/22 17:45 Heart Rate Review of Systems ROS Statement: Those systems with pertinent positive or pertinent negative responses have been documented in the HPI. ROS Other: All systems not noted in ROS Statement are negative. 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 History of Any Multi-Drug Resistant Organisms: None Reported Past Surgical History: Section, Orthopedic Surgery Additional Past Surgical History / Comment(s): Left knee replacement Past Psychological History: No Psychological Hx Reported Smoking Status: Never smoker Past Alcohol Use History: None Reported Past Drug Use History: None Reported - Past Family History Father Family Medical History: Myocardial Infarction (AR) Additional Family Medical History / Comment(s): from myocardial infarction at 70 years old Mother Additional Family Medical History / Comment(s): from "enlarged heart" at 87 years old Brother(s) Family Medical History: Coronary Artery Disease (CAD) Additional Family Medical History / Comment(s): Multiple stents placed, starting at less than 55 years of age Son(s) Family Medical History: CVA/TIA Additional Family Medical History / Comment(s): from stroke at 41 years old General Exam Limitations: no limitations Course Vital Signs 05/23/22 05/23/22 05/23/22 17:42 19:45 20:33 Temperature 101.2 F H 99.4 F 99.4 F Pulse Rate 87 78 Respiratory 20 18 Rate Blood Pressure 170/74 143/73 O2 Sat by Pulse 99 96 Oximetry Medical Decision Making - Lab Data Result diagrams: 05/23/22 17:57 05/23/22 17:57 Lab Results 05/23/22 05/23/22 05/23/22 Range/Units 17:57 17:57 17:57 WBC 6.7 (3.8-10.6) k/uL RBC 4.25 (3.80-5.40) m/uL Hgb 12.5 (11.4-16.0) gm/dL Hct 38.4 (34.0-46.0) % MCV 90.4 (80.0-100.0) fL MCH 29.5 (25.0-35.0) pg MCHC 32.7 (31.0-37.0) g/dL RDW 14.1 (11.5-15.5) % Plt Count 200 (150-450) k/uL MPV 8.0 Neutrophils % 79 % Lymphocytes % 14 % Monocytes % 4 % Eosinophils % 2 % Basophils % 1 % Neutrophils # 5.2 (1.3-7.7) k/uL Lymphocytes # 0.9 L (1.0-4.8) k/uL Monocytes # 0.2 (0-1.0) k/uL Eosinophils # 0.1 (0-0.7) k/uL Basophils # 0.1 (0-0.2) k/uL Sodium 135 L (137-145) mmol/L Potassium 5.0 (3.5-5.1) mmol/L Chloride 101 (98-107) mmol/L Carbon Dioxide 21 L (22-30) mmol/L Anion Gap 13 mmol/L BUN 19 H (7-17) mg/dL Creatinine 1.03 (0.52-1.04) mg/dL Est GFR (CKD-EPI)AfAm 62 (>60 ml/min/1.73 sqM) Est GFR (CKD-EPI)NonAf 53 (>60 ml/min/1.73 sqM) Glucose 140 H (74-99) mg/dL Plasma Lactic Acid Aki 1.6 (0.7-2.0) mmol/L Calcium 9.8 (8.4-10.2) mg/dL Total Bilirubin 0.6 (0.2-1.3) mg/dL AST 25 (14-36) U/L ALT 17 (4-34) U/L Alkaline Phosphatase 79 (38-126) U/L Troponin I (0.000-0.034) ng/mL Total Protein 8.0 (6.3-8.2) g/dL Albumin 4.5 (3.5-5.0) g/dL Urine Color Urine Appearance (Clear) Urine pH (5.0-8.0) Ur Specific [place] (1.001-1.035) Urine Protein (Negative) Urine Glucose (UA) (Negative) Urine Ketones (Negative) Urine Blood (Negative) Urine Nitrite (Negative) Urine Bilirubin (Negative) Urine Urobilinogen (<2.0) mg/dL Ur Leukocyte Esterase (Negative) Urine RBC (0-5) /hpf Urine WBC (0-5) /hpf Ur Squamous Epith Cells (0-4) /hpf Influenza Type A (PCR) (Not Detectd) Influenza Type B (PCR) (Not Detectd) RSV (PCR) (Not Detectd) SARS-CoV-2 (PCR) (Not Detectd) 05/23/22 05/23/22 05/23/22 Range/Units 17:57 18:48 18:48 WBC (3.8-10.6) k/uL RBC (3.80-5.40) m/uL Hgb (11.4-16.0) gm/dL Hct (34.0-46.0) % MCV (80.0-100.0) fL MCH (25.0-35.0) pg MCHC (31.0-37.0) g/dL RDW (11.5-15.5) % Plt Count (150-450) k/uL MPV Neutrophils % % Lymphocytes % % Monocytes % % Eosinophils % % Basophils % % Neutrophils # (1.3-7.7) k/uL Lymphocytes # (1.0-4.8) k/uL Monocytes # (0-1.0) k/uL Eosinophils # (0-0.7) k/uL Basophils # (0-0.2) k/uL Sodium (137-145) mmol/L Potassium (3.5-5.1) mmol/L Chloride (98-107) mmol/L Carbon Dioxide (22-30) mmol/L Anion Gap mmol/L BUN (7-17) mg/dL Creatinine (0.52-1.04) mg/dL Est GFR (CKD-EPI)AfAm (>60 ml/min/1.73 sqM) Est GFR (CKD-EPI)NonAf (>60 ml/min/1.73 sqM) Glucose (74-99) mg/dL Plasma Lactic Acid Aki (0.7-2.0) mmol/L Calcium (8.4-10.2) mg/dL Total Bilirubin (0.2-1.3) mg/dL AST (14-36) U/L ALT (4-34) U/L Alkaline Phosphatase (38-126) U/L Troponin I <0.012 (0.000-0.034) ng/mL Total Protein (6.3-8.2) g/dL Albumin (3.5-5.0) g/dL Urine Color Light Yellow Urine Appearance Clear (Clear) Urine pH 7.0 (5.0-8.0) Ur Specific [place] 1.011 (1.001-1.035) Urine Protein Negative (Negative) Urine Glucose (UA) Negative (Negative) Urine Ketones Negative (Negative) Urine Blood Small H (Negative) Urine Nitrite Negative (Negative) Urine Bilirubin Negative (Negative) Urine Urobilinogen <2.0 (<2.0) mg/dL Ur Leukocyte Esterase Negative (Negative) Urine RBC 2 (0-5) /hpf Urine WBC <1 (0-5) /hpf Ur Squamous Epith Cells <1 (0-4) /hpf Influenza Type A (PCR) Not Detected (Not Detectd) Influenza Type B (PCR) Not Detected (Not Detectd) RSV (PCR) Not Detected (Not Detectd) SARS-CoV-2 (PCR) Detected A (Not Detectd) Disposition Clinical Impression: Coronavirus infection Disposition: HOME SELF-CARE Condition: Fair Instructions (If sedation given, give patient instructions): Coronavirus Disease 2019 (COVID-19) Prescriptions: Nirmatrelvir/Ritonavir [Paxlovid 150-100 mg Pack (Eua)] 1 each PO BID #10 tab Is patient prescribed a controlled substance at d/c from ED?: No Referrals: Jarett Gomez Jr, [Primary Care Provider] - 1-2 days Time of Disposition: 20:46
[2022-05-23 19:05] LABS: Appearance,Urine Clear (Clear); Bilirubin,Urine Negative (Negative); Blood,Urine Small (Negative); Color,Urine Light Yellow; Glucose,Urine (UA) Negative (Negative); Ketones,Urine Negative (Negative); Leukocyte Esterase,Urine Negative (Negative); Nitrite,Urine Negative (Negative); Protein,Urine Negative (Negative); RBC,Urine 2 /hpf (0-5); Specific Gravity,Urine 1.011 (1.001-1.035); Squamous Epithelial Cell,Urine <1 /hpf (0-4); Urobilinogen,Urine <2.0 mg/dL (<2.0); WBC,Urine <1 /hpf (0-5)
[2022-05-23 19:45] VITALS: TEMP 99.4
[2022-05-23 20:34] VITALS: BP 143/73; PULSE 78; RESP 18
== END 2022-05-23 20:56 | disposition home or self-care (01) ==
LOC: EC 17:23
DX: U07.1 COVID-19 (principal); R41.82 Altered mental status, unspecified; I10 Essential (primary) hypertension; E11.9 Type 2 diabetes mellitus without complications; E78.5 Hyperlipidemia, unspecified; E07.9 Disorder of thyroid, unspecified; I25.10 Atherosclerotic heart disease of native coronary artery without angina pectoris; Z88.8 Allergy status to other drugs, medicaments and biological substances; Z79.899 Other long term (current) drug therapy; Z79.84 Long term (current) use of oral hypoglycemic drugs; Z79.02 Long term (current) use of antithrombotics/antiplatelets; Z79.82 Long term (current) use of aspirin; Z79.890 Hormone replacement therapy
CPT/HCPCS: 36415; 80053; 81001; 83605; 84484; 85025; 87636; 93005; 99285

== ENCOUNTER → 2023-03-27 | Outpatient (CLI) | payer MEDICARE ==
--- NOTE | 2023-03-27 19:51 | MR ---
EXAMINATION TYPE: MR cervical spine wo con DATE OF EXAM: 03/27/2023 INDICATION: Patient age: Female; 77 years old; Reason for study: M54.2 CERVICALGIA;. Neck pain into left arm COMPARISON: None. TECHNIQUE: Multi planar, multi sequence imaging was performed utilizing: T1-weighted, T2-weighted, an d turbo inversion recovery imaging of the cervical spine. IV Contrast: None FINDINGS: Alignment: The cervical vertebral bodies have preserved heights. There is straightening of the cervic al alignment. Bones: Multilevel disc degeneration changes are seen throughout the cervical spine with disc space na rrowing Bone signal is within normal limits. No abnormal bone marrow edema on inversion recovery sequ ences. Cord: The spinal cord is unremarkable with regards to their signal intensity and morphology. Discs: Multilevel disc desiccation and disc space narrowing. C2-C3: No significant disc pathology. The spinal canal is patent. No neural foraminal stenosis. C3-C4: Posterior eccentric left disc osteophyte complex which moderately compresses and upon the spin al cord spinal cord signal is maintained. Bilateral facet and uncovertebral joint arthropathy are pr esent with moderate left and moderate to severe right neural foraminal stenosis. C4-C5: A disc osteophyte complex is present with mild spinal canal stenosis. Bilateral facet and unc overtebral joint arthropathy are present with moderate left and moderate to severe right neural renea inal stenosis. C5-C6: A disc osteophyte complex is present with mild spinal canal stenosis. Bilateral facet and unc overtebral joint arthropathy are present with moderate bilateral neural foraminal stenosis. C6-C7: A disc osteophyte complex is present which minimally narrows the ventral subarachnoid space. Bilateral facet and uncovertebral joint arthropathy are present with mild bilateral neural foraminal stenosis. C7-T1: No significant disc pathology. The spinal canal is patent. No neural foraminal stenosis. Other: None. IMPRESSION: 1. C3-C4 eccentric left disc osteophyte complex which impresses upon the left aspect of the spinal c ord. Cord signal maintained. There is severe right and moderate left neural foraminal stenosis at thi s level. 2. C4-C5 moderate to severe right neural foraminal stenosis and mild spinal canal stenosis. 3. C5-C6 moderate bilateral neural foraminal stenosis. 4. Moderate to severe multilevel degeneration changes worse at C3-C4 and C4-C5.
== END | disposition home or self-care (01) ==
LOC: RADMRIMAIN 07:37
PROVIDERS: ATTEND Psychiatry & Neurology Neurology
DX: M47.812 Spondylosis without myelopathy or radiculopathy, cervical region (principal); M25.78 Osteophyte, vertebrae; M48.02 Spinal stenosis, cervical region
CPT/HCPCS: 72141

== ENCOUNTER → 2024-10-19 | Outpatient (CLI) | payer MEDICARE ==
[2024-10-19 21:45] LABS: LDH 176 U/L (120-246)
[2024-10-19 21:48] LABS: ALT 29 U/L (8-44); AST 31 U/L (13-35); Albumin 3.9 g/dL (3.8-4.9); Albumin/Globulin Ratio 0.54 Ratio (1.60-3.17); Alkaline Phosphatase 81 U/L (41-126); BUN/Creat Ratio 19.91 Ratio (12.00-20.00); Blood Urea Nitrogen 21.9 mg/dL (9.0-27.0); Calcium 10.5 mg/dL (8.7-10.3); Carbon Dioxide 23.4 mmol/L (21.6-31.8); Chloride 101 mmol/L (96-109); Globulin 7.2 g/dL (1.6-3.3); Glucose 136 mg/dL (70-110); Potassium 4.2 mmol/L (3.5-5.5); Sodium 136 mmol/L (135-145); Total Protein 11.1 g/dL (6.2-8.2)
[2024-10-19 22:07] LABS: Beta 2 Microglobulin 5.3 mg/L (0.61-2.37)
[2024-10-19 22:11] LABS: Basophils # (A) 0.07 X 10*3/uL (0.00-0.10); Basophils % (A) 0.9 %; Eosinophils # (A) 0.18 X 10*3/uL (0.04-0.35); Eosinophils % (A) 2.4 %; HCT 37.9 % (37.2-46.3); HGB 11.7 g/dL (12.0-15.0); Lymphocytes # (A) 2.13 X 10*3/uL (0.90-5.00); Lymphocytes % (A) 28.6 %; MCHC 30.9 g/dL (32.0-37.0); MCV 93.8 FL (80.0-97.0); Mean Platelet Volume 11.2 FL (9.5-12.2); Monocytes # (A) 0.53 X 10*3/uL (0.20-1.00); Monocytes % (A) 7.1 %; NRBC Per 100 WBC 0 X 10*3/uL (0.00-0.01); Neutrophils # (A) 4.51 X 10*3/uL (1.80-7.70); Neutrophils % (A) 60.7 %; Platelet Count 288 X 10*3/uL (140-440); RBC 4.04 X 10*6/uL (4.10-5.20); RDW 14.4 % (11.5-14.5); WBC 7.44 X 10*3/uL (4.50-10.00)
[2024-10-20 12:00] LABS: Free Kappa Lt Chain Qnt, Serum 90.09 mg/dL (0.33-1.94); Free Lambda Lt Chain Qnt, Seru 1.18 mg/dL (0.57-2.63)
== END | disposition home or self-care (01) ==
LOC: LABWHC1 15:03
PROVIDERS: ATTEND Family Medicine
DX: D48.0 Neoplasm of uncertain behavior of bone and articular cartilage (principal)
CPT/HCPCS: 36415; 80053; 82232; 83615; 83883; 84165; 85025; 86335

== ENCOUNTER → 2024-10-22 | Outpatient (CLI) | payer MEDICARE ==
--- NOTE | 2024-10-22 10:33 | CT ---
EXAMINATION TYPE: CT ChestAbdPelvis wo/w con DATE OF EXAM: 10/22/2024 9:46 AM COMPARISON: Chest 10/26/2020 CLINICAL INDICATION: Female, 79 years old with history of S32.020D compression fx, compression fx, po ssible cancer, TECHNIQUE: Contiguous axial scanning of the chest, abdomen, and pelvis performed without and with IV Contrast, patient injected with 80 mL of Isovue 300. Delayed images through the kidneys were obtained . Coronal/sagittal reconstructions performed. CT DLP: 1704.00 mGycm, Automated exposure control for dose reduction was used. FINDINGS: Chest: Heart borderline enlarged without pericardial effusion. Post-CABG changes with median sternotomy wire s are noted. Aorta shows conventional arch vessel branching anatomy and normal caliber. Minimal prostatic arch and descending thoracic aortic calcifications. No thoracic lymphadenopathy by CT size criteria. A couple prominent left periaortic lymph nodes in th e lower thorax measuring up to 9 mm are unchanged from 2020. Minimal emphysematous change. Strandy scarring or atelectasis in the mid and lower lungs. Minimal bib asilar bronchiolectasis. Some mosaic attenuation suggesting small airways disease. No consolidation o r pleural effusion. ABDOMEN: No focal liver lesion. The gallbladder is filled with stones measuring up to 1.1 cm. No abnormal gallbladder distention. Por lashawn venous system is patent. Adrenal glands, spleen, atrophic pancreas show no gross abnormality. Bilateral renal cortical cysts measuring up to 2.2 cm on the right and 3.6 cm on the left. Moderate atherosclerotic calcifications and plaque infrarenal abdominal aorta and common iliac arteri es. No dilated small bowel, free fluid, or free air. No mesenteric or retroperitoneal lymphadenopathy. Oral contrast progressed into the right side of the colon. Moderate stool right side of the abdomen. Sigmoid diverticulosis. No pericolonic inflammatory change. Pelvis: Bladder partially distended. Uterus anteverted. Both ovaries are visualized. There is pelvic floor re laxation. No abnormal fluid collection in the pelvis or pelvic lymphadenopathy. Bones: Degenerative ankylosis left SI joint. [id number] degenerative change right SI joint. There appe ars to be old healed fracture deformity at the pubic symphysis and right pubic bone. Moderate degener ative change of both hips. Transitional lumbosacral segment denoted as a lumbarized S1. There is a destructive soft tissue mass within the central portion and left lateral aspect of the L2 vertebral body with mild extraosseous so ft tissue extension. Some extension into the left neuroforamen and left ventral epidural space causin g mild overall spinal canal narrowing and a moderate left neuroforaminal stenosis at L1-L2. No other destructive soft tissue lesion clearly identified. However, there is soft tissue density not ed in the region of expected fatty marrow within the bilateral iliac bones, for example, axial image 84 IMPRESSION: 1. DESTRUCTIVE SOFT TISSUE LESION OF THE L2 VERTEBRAL BODY WITH MILD EXTRAOSSEOUS SOFT TISSUE EXTENSI ON. SOME VENTRAL EPIDURAL EXTENSION CAUSES MILD SPINAL CANAL NARROWING AND MODERATE LEFT L1-L2 NEUROF ORAMINAL STENOSIS. 2. WHILE ADDITIONAL DISCRETE BONY LESIONS ARE NOT IDENTIFIED, THERE MAY BE SOME INCREASED MARROW DENS ITY SCATTERED THROUGHOUT SUCH WITHIN THE BILATERAL ILIAC BONES. INFILTRATIVE OSSEOUS DISEASE NOT E NTIRELY EXCLUDED. 3. COPD with mild emphysema and suspected chronic pleural-parenchymal scarring in the mid and lower l ungs. 4. Cholelithiasis with stones measuring up to 1.1 cm. Mid sigmoid diverticulosis. Renal cysts measuri ng up to 3.6 cm. [facility], , 10/22/2024 10:31 AM
--- NOTE | 2024-10-22 14:14 | NM ---
EXAMINATION TYPE: NM bone scan whole body DATE OF EXAM: 10/22/2024 COMPARISON: Same day CT CLINICAL INDICATION: Female, 79 years old with history of S32.020D compression fx; Delayed whole-body scanning was performed following the injection of 21.6 mCi Tc 99m MDP. Images acq uired 5.5 hours post injection. FINDINGS: Increased radiotracer uptake involving the L2 vertebra is noted. There is mild multifocal uptake thro ughout the lower thoracic spine. There is increased radiotracer uptake in the region of the left sacr oiliac joint corresponding to subtle lytic area. Focal level left ankle joint favors degenerative sally nge. Urine leak is present on current study. 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 Possible acute/subacute pathologic fracture involvin g the L2 vertebra. [facility], , 10/22/2024 2:12 PM
== END | disposition home or self-care (01) ==
LOC: RADNMMAIN 07:13
PROVIDERS: ATTEND Orthopaedic Surgery Orthopaedic Surgery of the Spine
DX: S32.020D Wedge compression fracture of second lumbar vertebra, subsequent encounter for fracture with routine healing (principal); K57.30 Diverticulosis of large intestine without perforation or abscess without bleeding; N28.1 Cyst of kidney, acquired; K80.20 Calculus of gallbladder without cholecystitis without obstruction
CPT/HCPCS: 71270; 74178; 36415; 78306; A9503; Q9967

== ENCOUNTER → 2024-10-23 | Outpatient (CLI) | payer MEDICARE ==
--- NOTE | 2024-10-25 18:29 | PE ---
EXAMINATION TYPE: PET CT fusion skull to thigh DATE OF EXAM: 10/23/2024 CLINICAL INDICATION:Female, 79 years old with history of R59.0 ENLARGED LYMPHNODES; TECHNIQUE: Following the intravenous administration of 9.16 mCi of F-18 FDG, whole body images are performed from the skull base to the midthigh. Images are reviewed on the computer in the coronal, a xial, and sagittal planes. Reconstructed rotating images are created on independent workstation and reviewed on the computer. A non-contrast CT is performed in conjunction with the PET scan. Glucose level 119 mg/dL CT DLP: 586 mGycm, Automated exposure control for dose reduction was used. COMPARISON: CT 10/22/2024, PET/CT None, MRI: None FINDINGS: Mediastinal SUV mean is 2.8. Hepatic parenchyma SUV mean is 3.7. SKULL BASE AND NECK: No suspicious radiotracer activity. CHEST, MEDIASTINUM, AND HILAR REGION: No suspicious radiotracer activity. ABDOMEN AND PELVIS: No suspicious radiotracer activity. MUSCULOSKELETAL STRUCTURES: Destructive osseous lesion in the L2 vertebral body with soft tissue component max SUV 6.2 the soft t issue component present along the anterior lateral aspect of T2 body measuring up to 37 x 35 mm. Ther e may be pathologic fracture involving the L2 vertebral body which may correlate with patient's pain. T12 vertebral body lesion not well appreciated, specifically no focal uptake to suggest mass in this acute body. Max SUV SUV of the T12 vertebral body 5.1. The remainder of the osseous structures have a demineralized appearance with abnormal sclerosis. Prio r fractures of the pubic rami noted. OTHER CT: Atherosclerosis of the arterial vasculature. Sternotomy wires present. Coronary artery atherosclerosi s. Cholelithiasis. Oral contrast in the large bowel remains present. Scattered colonic diverticula. E xcreted IV contrast in the urinary bladder lumen the heart is mildly enlarged for size. IMPRESSION: Mild uptake within the L2 vertebral body and T12 vertebral body. Similar heterogenous uptake througho ut the remainder of the osseous structures. Given the hypometabolic nature of this lesion consider fu rther workup with contrast-enhanced MR spine if there is concern for T12 bony lesion. No other suspic ious uptake identified which may be false negative given hypometabolic nature of the lesion in the L2 vertebral body. Superimposed pathologic fracture of L2 may also be present and can be further evalua luis with MRI. [facility], , 10/25/2024 6:26 PM
== END | disposition home or self-care (01) ==
LOC: RADPETMAIN 14:35
PROVIDERS: ATTEND Internal Medicine Hematology & Oncology
DX: R93.7 Abnormal findings on diagnostic imaging of other parts of musculoskeletal system (principal); R59.0 Localized enlarged lymph nodes
CPT/HCPCS: 78815; A9552

== ENCOUNTER 2024-11-10 05:59 | Day surgery (SDC) | payer MEDICARE ==
[2024-11-09 09:41] VITALS: BMI 28.9
[~2024-11-10 05:59] MED LIST: LACTATED RINGERS 1,000 ML IV SCH
[2024-11-10 06:38] VITALS: TEMP 96.8
[2024-11-10 06:55] LABS: Glucose,Whole Blood 236 mg/dL (70-110)
[2024-11-10 06:55] LABS: Glucose,Whole Blood 221 mg/dL (70-110)
[2024-11-10] MEDS: LACTATED RINGERS 1,000 ML IV ONE (06:58)
[2024-11-10] MEDS ORDERED: MIDAZOLAM 2 MG/2 ML VIAL ONE (06:59)
[2024-11-10] MEDS ORDERED: fentaNYL (PF) 50 MCG/ML 2 ML AMP ONE (06:59)
[2024-11-10 07:49] VITALS: BP 159/74; PULSE 55; RESP 16
--- NOTE | 2024-11-10 08:00 | OP ---
OPERATIVE REPORT DATE OF SERVICE : PROCEDURE PERFORMED: Bone marrow biopsy with aspiration with local and general sedation. DESCRIPTION OF PROCEDURE: Ms. Meza was placed in the left lateral decubitus position with the right iliac crest palpated. After administration of general sedation, three swabs of Betadine and three swabs of alcohol were used to sterilize the area, followed by placement of sterile drape, 10 mL of lidocaine was then applied to the periosteum, followed by 0.3 cm incision into the subcutaneous tissue, a 4-inch Jamshidi needle was then advanced through the periosteum into the bone marrow, approximately 17 mL of aspirate was obtained. An initial 0.3 cm core sample was obtained. Subsequent attempt obtained 0.6 cm core sample. She tolerated the procedure without any complications and less than 1 mL of blood loss. She returned to the postoperative area in stable condition. Samples obtained will be sent for morphology, flow cytometry, FISH, and cytogenetics. We will follow up on the results in clinic. MMODL / IJN: [id number] /
[2024-11-10 08:18] LABS: Basophils % (A) 0 %; Eosinophils % (A) 0 %; HCT 33.6 % (34.0-46.0); HGB 11.2 gm/dL (11.4-16.0); Lymphocytes # (A) 0.6 k/uL (1.0-4.8); Lymphocytes % (A) 7 %; MCH 30.4 pg (25.0-35.0); MCHC 33.4 g/dL (31.0-37.0); Mean Platelet Volume 8.7; Monocytes # (A) 0.2 k/uL (0-1.0); Monocytes % (A) 2 %; Neutrophils # (A) 8.5 k/uL (1.3-7.7); Neutrophils % (A) 91 %; Platelet Count 324 k/uL (150-450); RBC 3.69 m/uL (3.80-5.40); Reticulocyte % 1.7 % (0.5-2.0); WBC 9.4 k/uL (3.8-10.6)
[2024-11-10 08:58] LABS: Rouleaux Present
== END 2024-11-10 08:24 | disposition home or self-care (01) ==
LOC: OR 05:59
PROVIDERS: ATTEND Internal Medicine
DX: C90.00 Multiple myeloma not having achieved remission (principal); I10 Essential (primary) hypertension; I25.10 Atherosclerotic heart disease of native coronary artery without angina pectoris; E78.5 Hyperlipidemia, unspecified; E11.9 Type 2 diabetes mellitus without complications; E07.9 Disorder of thyroid, unspecified; M54.2 Cervicalgia; Z95.1 Presence of aortocoronary bypass graft; Z89.522 Acquired absence of left knee; Z88.6 Allergy status to analgesic agent; Z79.890 Hormone replacement therapy; Z79.899 Other long term (current) drug therapy
CPT/HCPCS: 85025; 85045; 38222; J2250; J3010

== ENCOUNTER 2024-12-15 20:11 | Inpatient (IN) | payer MEDICARE ==
[2024-12-15 21:34] LABS: Anisocytosis Slight; Basophils # (A) 0.1 k/uL (0-0.2); Basophils % (A) 1 %; Eosinophils # (A) 0.1 k/uL (0-0.7); Eosinophils % (A) 1 %; HCT 28.8 % (34.0-46.0); Hypochromasia Slight; Lymphocytes # (A) 0.9 k/uL (1.0-4.8); Lymphocytes % (A) 10 %; MCH 31.2 pg (25.0-35.0); MCHC 33.2 g/dL (31.0-37.0); MCV 94.1 fL (80.0-100.0); Mean Platelet Volume 9.5; Monocytes # (A) 0.4 k/uL (0-1.0); Monocytes % (A) 4 %; Neutrophils # (A) 7.4 k/uL (1.3-7.7); Neutrophils % (A) 83 %; RBC 3.06 m/uL (3.80-5.40); RDW 16.6 % (11.5-15.5); WBC 8.9 k/uL (3.8-10.6)
[2024-12-15 21:42] LABS: HGB 9.6 gm/dL (11.4-16.0); Platelet Count 144 k/uL (150-450)
[2024-12-15 21:47] LABS: ALT 29 U/L (4-34); AST 24 U/L (14-36); African American GFR (CKD) 55 (>60 ml/min/1.73 sqM); Alkaline Phosphatase 73 U/L (38-126); Anion Gap 8 mmol/L; Blood Urea Nitrogen 26 mg/dL (7-17); Calcium 8.1 mg/dL (8.4-10.2); Carbon Dioxide 18 mmol/L (22-30); Chloride 100 mmol/L (98-107); Glucose 225 mg/dL (74-99); Non-African American GFR(CKD) 47 (>60 ml/min/1.73 sqM); Potassium 4.2 mmol/L (3.5-5.1); Sodium 126 mmol/L (137-145); Total Bilirubin 0.7 mg/dL (0.2-1.3)
[2024-12-15 21:55] LABS: NT-Pro-B-Type Natriuretic Pept 1000 pg/mL
--- NOTE | 2024-12-15 22:14 | XR ---
EXAMINATION TYPE: XR ankle complete LT DATE OF EXAM: 12/15/2024 10:05 PM COMPARISON: None CLINICAL INDICATION: Female, 79 years old with history of ankle pain; PHH, pain TECHNIQUE: XR ankle complete LT; frontal, lateral and oblique projections. FINDINGS: Abnormal curvilinear lucencies are seen on the views of the distal fibula concerning for nondisplaced fractures. No additional fractures. Calcaneal plantar spurring present. IMPRESSION: Curvilinear lucency through the fibula suggestive of nondisplaced fractures consider confirmation wit h CT. [facility], , 12/15/2024 10:12 PM
--- NOTE | 2024-12-15 22:15 | US ---
EXAMINATION TYPE: US venous doppler duplex LE LT DATE OF EXAM: 12/15/2024 9:48 PM COMPARISON: NONE CLINICAL INDICATION: Female, 79 years old with history of leg edema; Lt leg swelling, pain, no hx of DVT, currently on baby aspirin TECHNIQUE: The lower extremity deep venous system is examined utilizing real time linear array sonog arash with graded compression, color doppler sonography, and spectral doppler. SIDE PERFORMED: Left FINDINGS: VESSELS IMAGED: Common Femoral Vein Deep Femoral Vein Greater Saphenous Vein * Femoral Vein Popliteal Vein Small Saphenous Vein * Proximal Calf Veins (* superficial vessels) limited exam due to pt body habitus & severe edema Left Leg: There appears to be internal echoes throughout the entirety of the Left leg with no compre ssion, Partial color flow seen within Lt CFV, GSV & distal Pop V IMPRESSION: DVT involving the left leg from the common femoral vein to the popliteal vein. Findings communicated to Ambrosio Jones on 12/15/2024 10:[address] Barrie Keane. [facility], , 12/15/2024 10:13 PM
--- NOTE | 2024-12-15 22:35 | ED ---
General Adult HPI - General Chief complaint: Extremity Problem,Nontraumatic Stated complaint: Leg swelling Time Seen by Provider: 12/15/24 20:55 Source: patient, EMS, RN notes reviewed, old records reviewed Limitations: no limitations - History of Present Illness Initial comments: Patient is a 79-year-old female who presents emergency department complaining of 1 day history of left lower extremity swelling. States this started suddenly yesterday. No significant pain. Has noticed swelling from her toes up to her knee. No obvious injury. Does have a history of multiple myeloma and is currently receiving treatment for it. Denies any chest pain or shortness of breath. Denies nausea or vomiting. Has no other acute complaints at this time. Denies any history of blood clots, recent long distance travel. Is not on blood thinners. History includes hypertension, CAD, diabetes. Presents for further evaluation at this time. - Related Data Home Medications Medication Instructions Recorded Confirmed Dulaglutide [Trulicity] 0.75 mg SQ MO 11/09/24 12/16/24 dexAMETHasone [Decadron] 20 mg PO MO 11/09/24 12/16/24 traMADol HCL 25 mg PO Q8H PRN 11/09/24 12/16/24 Acyclovir [Zovirax] 400 mg PO BID 12/16/24 12/16/24 Bortezomib 1 dose IJ WE 12/16/24 12/16/24 Fluconazole [Diflucan] 100 mg PO DAILY 12/16/24 12/16/24 Lenalidomide 15 mg PO DIRECTED 12/16/24 12/16/24 Ondansetron Odt [Zofran ODT] 4 mg PO Q8HR PRN 12/16/24 12/16/24 Sulfamethox-Tmp 800-160Mg [Bactrim 1 tab PO MOWEFR 12/16/24 12/16/24 DS 800-160 mg] Valsartan [Diovan] 80 mg PO HS 12/16/24 12/16/24 atenoloL [Tenormin] 25 mg PO HS 12/16/24 12/16/24 Previous Rx's Medication Instructions Recorded Aspirin EC [Ecotrin Low Dose] 81 mg PO HS #30 tab 11/01/20 Levothyroxine Sodium [Synthroid] 112 mcg PO AC-BRKFST #30 tab 11/01/20 Apixaban [Eliquis Starter Pack 5 - 10 mg PO DIRECTED 30 Days 12/16/24 (for VTE)] #1 each Pantoprazole [Protonix] 40 mg PO DAILY #30 tab 12/16/24 Allergies Allergy/AdvReac Type Severity Reaction Status Date / Time epinephrine AdvReac Intermediate Rapid Verified 12/16/24 08:16 Heart Rate Review of Systems ROS Statement: Those systems with pertinent positive or pertinent negative responses have been documented in the HPI. Review of Systems: CONST: Denies fever EYES: Denies blurry vision ENT: Denies nasal congestion C/V: Denies Chest pain RESP: Denies shortness of breath GI: Denies abdominal pain : Denies dysuria SKIN: Denies rash. MSK: Endorses left leg swelling NEURO: Denies headache ROS Other: All systems not noted in ROS Statement are negative. 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 History of Any Multi-Drug Resistant Organisms: None Reported Past Surgical History: Section, Orthopedic Surgery Additional Past Surgical History / Comment(s): Left knee replacement Past Psychological History: No Psychological Hx Reported Smoking Status: Never smoker Past Alcohol Use History: None Reported Past Drug Use History: None Reported - Past Family History Father Family Medical History: Myocardial Infarction ([place]) Brother(s) Family Medical History: Coronary Artery Disease (CAD) Son(s) Family Medical History: CVA/TIA General Exam - General Exam Comments Initial Comments: General: Appears in no acute distress. HEAD: Normal with no signs of head trauma. EYES: EOMI ENT: Hearing grossly intact, normal oropharynx. RESPIRATORY: Clear breath sounds bilaterally. No wheezes, rales, or rhonchi. C/V: Regular rate and rhythm. S1 and S2 auscultated, peripheral pulses 2+ and intact throughout ABD: Abd is soft, nontender, nondistended EXT: Normal range of motion, no obvious deformity. Significant pitting edema of the left lower extremity from the toes to the knee. No significant calf pain on palpation. No significant skin changes. Some increased tenderness over the medial malleolus of the left ankle. SKIN: No rashes or lesions observed on exposed skin. NEURO: Alert and oriented x 4. Limitations: no limitations Course Vital Signs 12/15/24 12/15/24 20:19 23:20 Temperature 97.4 F L 97.9 F Pulse Rate 74 65 Respiratory 18 20 Rate Blood Pressure 131/75 116/75 O2 Sat by Pulse 98 98 Oximetry Medical Decision Making - Medical Decision Making Was pt. sent in by a medical professional or institution (, [facility], [facility], urgent care, hospital, or skilled nursing...) When possible be specific @ -No Did you speak to anyone other than the patient for history (EMS, parent, family, police, friend...)? What history was obtained from this source @ -No Did you review nursing and triage notes (agree or disagree)? Why? @ -I reviewed and agree with nursing and triage notes Were old charts reviewed (outside hosp., previous admission, EMS record, old EKG, old radiological studies, urgent care reports/EKG's, skilled nursing records)? Report findings @ -No old charts were reviewed Differential Diagnosis (chest pain, altered mental status, abdominal pain women, abdominal pain men, vaginal bleeding, weakness, fever, dyspnea, syncope, headache, dizziness, GI bleed, back pain, seizure, CVA, palpatations, mental health, musculoskeletal)? @ -Dependent edema, DVT, cellulitis. This list is not all inclusive. EKG interpreted by me (3pts min.). @ -As above X-rays interpreted by me (1pt min.). @ -Left ankle x-ray does show possible nondisplaced fracture of the fibula however patient has no tenderness over the lateral aspect of the ankle, only over the medial aspect. No concern for fracture at this time. CT interpreted by me (1pt min.). @ -None done U/S interpreted by me (1pt. min.). @ -Ultrasound reveals a large DVT of the left lower extremity from the common femoral vein to the popliteal vein. What testing was considered but not performed or refused? (CT, X-rays, U/S, labs)? Why? @ -None What meds were considered but not given or refused? Why? @ -None Did you discuss the management of the patient with other professionals (professionals i.e. , [facility], [facility], lab, RT, psych nurse, child welfare social worker, referral agent, teacher, building drafting officer, case aide)? Give summary @ -Discussed with the admitting provider, Dr. Gomez who accepted the admission. Was smoking cessation discussed for >3mins.? @ -No Was critical care preformed (if so, how long)? @ -Yes, 31 minutes Were there social determinants of health that impacted care today? How? (Homelessness, low income, unemployed, alcoholism, drug addiction, transportation, low edu. Level, literacy, decrease access to med. care, [facility], rehab)? @ -No Was there de-escalation of care discussed even if they declined (Discuss DNR or withdrawal of care, Hospice)? DNR status @ -No What co-morbidities impacted this encounter? (DM, HTN, Smoking, COPD, CAD, Cancer, CVA, ARF, Chemo, Hep., AIDS, mental health diagnosis, sleep apnea, morbid obesity)? @ -Multiple myeloma Was patient admitted / discharged? Hospital course, mention meds given and route, prescriptions, significant lab abnormalities, going to OR and other pertinent info. @ -Based on the patient's presentation and physical exam, presents with swelling to the left lower extremity with medial malleoli or tenderness. Will obtain an x-ray, as well as DVT ultrasound. Basic labs will also be obtained. Patient was in agreement this plan. Vital signs are within acceptable limits. No concern for PE at this time as she has no chest pain or shortness of breath. EKG shows no signs of acute ischemia. Imaging shows possible nondisplaced fracture of the left fibula however patient has no pain over the lateral aspect and I believe this is unlikely. This was conveyed to the patient and she was in agreement. Patient does have a large DVT from the femoral vein to the popliteal vein on the left side. Labs are remarkable for a somewhat chronic anemia and thrombocytopenia. She is hyponatremic at 126. Remainder the labs unremarkable. I discussed the results with the patient. She will be initiated on heparin and IV fluids. She will be admitted with vascular consult. She was in agreement this plan. I spoke with the admitting provider, Dr. Gomez who accepted the admission. Undiagnosed new problem with uncertain prognosis? @ -No Drug Therapy requiring intensive monitoring for toxicity (Heparin, Nitro, Insulin, Cardizem)? @ -Heparin Were any procedures done? @ -No Diagnosis/symptom? @ -Dehydration, hyponatremia, DVT Acute, or Chronic, or Acute on Chronic? @ -Acute Uncomplicated (without systemic symptoms) or Complicated (systemic symptoms)? @ -Complicated Side effects of treatment? @ -No Exacerbation, Progression, or Severe Exacerbation? @ -No Poses a threat to life or bodily function? How? (Chest pain, [place], [place], pneumonia, PE, COPD, DKA, ARF, appy, cholecystitis, CVA, Diverticulitis, Homicidal, Suicidal, threat to staff... and all critical care pts) @ -Yes - Lab Data Result diagrams: 12/16/24 04:13 12/16/24 04:13 Lab Results 12/15/24 12/15/24 12/15/24 Range/Units 21:18 21:18 21:18 WBC 8.9 (3.8-10.6) k/uL RBC 3.06 L (3.80-5.40) m/uL Hgb 9.6 L D (11.4-16.0) gm/dL Hct 28.8 L (34.0-46.0) % MCV 94.1 (80.0-100.0) fL MCH 31.2 (25.0-35.0) pg MCHC 33.2 (31.0-37.0) g/dL RDW 16.6 H (11.5-15.5) % Plt Count 144 L D (150-450) k/uL MPV 9.5 Neutrophils % 83 % Lymphocytes % 10 % Monocytes % 4 % Eosinophils % 1 % Basophils % 1 % Neutrophils # 7.4 (1.3-7.7) k/uL Lymphocytes # 0.9 L (1.0-4.8) k/uL Monocytes # 0.4 (0-1.0) k/uL Eosinophils # 0.1 (0-0.7) k/uL Basophils # 0.1 (0-0.2) k/uL Manual Slide Review Performed Hypochromasia Slight Anisocytosis Slight Sodium 126 L (137-145) mmol/L Potassium 4.2 (3.5-5.1) mmol/L Chloride 100 (98-107) mmol/L Carbon Dioxide 18 L (22-30) mmol/L Anion Gap 8 mmol/L BUN 26 H (7-17) mg/dL Creatinine 1.12 H (0.52-1.04) mg/dL Est GFR (CKD-EPI)AfAm 55 (>60 ml/min/1.73 sqM) Est GFR (CKD-EPI)NonAf 47 (>60 ml/min/1.73 sqM) Glucose 225 H (74-99) mg/dL Plasma Lactic Acid Aki 2.0 (0.7-2.0) mmol/L Calcium 8.1 L (8.4-10.2) mg/dL Total Bilirubin 0.7 (0.2-1.3) mg/dL AST 24 (14-36) U/L ALT 29 (4-34) U/L Alkaline Phosphatase 73 (38-126) U/L NT-Pro-B Natriuret Pep 1000 pg/mL Total Protein 6.0 L (6.3-8.2) g/dL Albumin 3.0 L (3.5-5.0) g/dL - EKG Data -: EKG Interpreted by Me EKG Comments: 12-lead Electrocardiogram Interpretation Note EKG was reviewed and interpreted by myself. 12-lead ECG performed at 2303 is interpreted by me as revealing normal sinus rhythm with left bundle branch block at a rate of 63 beats per minute. Left axis deviation. NM interval is 158 ms, QRS durations 144 ms, QTc is 466 ms.. There were no acute ST or T wave abnormalities to suggest myocardial ischemia or injury. R wave progression across the precordium was delayed. By my interpretation this EKG is non- diagnostic for acute ischemia. Compared with EKG from May 2022 1 patient also had left bundle branch block morphology. Unchanged from that time. Critical Care Time Critical Care Time: Yes Total Critical Care Time: 31 Disposition Clinical Impression: Deep vein thrombosis (DVT) of lower extremity, Hyponatremia, Dehydration Disposition: ADMITTED IP TO THIS [facility] Condition: Serious Time of Disposition: 22:30
[2024-12-15] MEDS ORDERED: NALOXONE 0.4 MG/ML 1 ML VIAL IV PRN (22:36)
[2024-12-15] MEDS ORDERED: ONDANSETRON 4 MG/2 ML VIAL IVP PRN (22:36)
[2024-12-15] MEDS ORDERED: ACETAMINOPHEN TAB 325 MG TAB PO PRN (22:36)
[2024-12-15] MEDS: HEPARIN SODIUM 1,000 UN/ML (10ML VL) IV ONE (23:58)
[2024-12-15] MEDS: HEPARIN SOD,PORK IN 0.45% NACL 25,000 UNIT in 0.45% NACL 1 250ML.BAG IV SCH (23:59)
[2024-12-16] MEDS: SODIUM CHLORIDE 0.9% 1,000 ML IV STA (00:01)
[2024-12-16 00:29] LABS: INR 1.1 (<1.2); Partial Thromboplastin Time 22.9 sec (22.0-30.0); Prothrombin Time 11.8 sec (10.0-12.5)
[2024-12-16 04:28] LABS: Anisocytosis Slight; Basophils # (A) 0.1 k/uL (0-0.2); Basophils % (A) 1 %; Eosinophils # (A) 0.1 k/uL (0-0.7); Eosinophils % (A) 1 %; HCT 29.1 % (34.0-46.0); HGB 9.4 gm/dL (11.4-16.0); Hypochromasia Slight; Lymphocytes # (A) 1.3 k/uL (1.0-4.8); Lymphocytes % (A) 14 %; MCH 30.4 pg (25.0-35.0); MCHC 32.1 g/dL (31.0-37.0); MCV 94.7 fL (80.0-100.0); Mean Platelet Volume 9.4; Monocytes # (A) 0.4 k/uL (0-1.0); Monocytes % (A) 4 %; Neutrophils # (A) 7.1 k/uL (1.3-7.7); Neutrophils % (A) 78 %; Platelet Count 176 k/uL (150-450); RBC 3.08 m/uL (3.80-5.40); RDW 16.9 % (11.5-15.5)
[2024-12-16 04:44] LABS: ALT 32 U/L (4-34); African American GFR (CKD) 47 (>60 ml/min/1.73 sqM); Albumin 3.4 g/dL (3.5-5.0); Anion Gap 11 mmol/L; Blood Urea Nitrogen 29 mg/dL (7-17); Calcium 9.1 mg/dL (8.4-10.2); Carbon Dioxide 19 mmol/L (22-30); Chloride 97 mmol/L (98-107); Glucose 168 mg/dL (74-99); Non-African American GFR(CKD) 41 (>60 ml/min/1.73 sqM); Sodium 127 mmol/L (137-145); Total Bilirubin 0.9 mg/dL (0.2-1.3); Total Protein 6.8 g/dL (6.3-8.2)
[2024-12-16 04:45] LABS: AST 34 U/L (14-36); Alkaline Phosphatase 86 U/L (38-126)
[2024-12-16 06:13] LABS: Glucose,Whole Blood 196 mg/dL (70-110)
[2024-12-16] MEDS ORDERED: SENNOSIDES-DOCUSATE SODIUM 1 EACH TAB PO PRN (06:55)
[2024-12-16] MEDS ORDERED: DEXTROSE 50% SYRINGE 50 ML IVP PRN ×2 (09:16)
[2024-12-16] MEDS: INSULIN LISPRO (HumaLOG) 100 UNIT/ML 10 mL VL SQ SCH ×2 (09:23→21:23)
[2024-12-16] MEDS: LEVOTHYROXINE 112 MCG TAB PO SCH (09:28)
[2024-12-16] MEDS: dexAMETHasone 4 MG TAB PO SCH (09:28)
[2024-12-16] MEDS: PANTOPRAZOLE 40 MG/10 ML VIAL IVP SCH (09:28)
[2024-12-16 11:08] LABS: Glucose,Whole Blood 239 mg/dL (70-110)
--- NOTE | 2024-12-16 12:03 | P.HPIM ---
History of Present Illness H&P Date: 12/16/24 Chief Complaint: Progressive left lower extremity edema This is a 79-year-old female with past medical history significant for recently diagnosed multiple myeloma with pathological fracture of L2, on RVD, steroids and palliative radiation(reports MRI completed-post PET scan -not available at this time),CAD,ID, CABG, hypertension, diabetes mellitus type 2, hypothyroidism and multiple other medical issues presented to the ER with progressive painful left lower extremity edema, painful ambulation. Reports it has progressively worsened over the last 2 weeks with shooting burning pain down her left leg. Reports she had tripped over clothes, denies trauma of her left leg/ankle/foot. Denies chest pain, palpitations or shortness of breath. Denies lightheadedness, dizziness or focal deficits. Reports over the last few weeks after receiving chemotherapy and radiation, she has been extremely fatigued, sedentary. States her routine has declined to minimal exertion. Blood pressures soft. Venous Doppler reported DVT involving the left leg from the common femoral vein to the popliteal vein. Left ankle x-ray reported curvilinear lucency through the fibula suggestive of nondisplaced fractures consider confirmation with CT. Afebrile, normal WBC. Hemoglobin 9.4, platelets 16.9, sodium 127, potassium 5, bicarb 19, BUN 29, creatinine 1.26, calcium 9.1, albumin 3 -3.4. Blood sugars 160s to low 200s, hemoglobin A1c 6.5 on 11/03 noted. Review of Systems ROS Statement: Those systems with pertinent positive or pertinent negative responses have been documented in the HPI. ROS Other: All systems not noted in ROS Statement are negative. 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 History of Any Multi-Drug Resistant Organisms: None Reported Past Surgical History: Section, Orthopedic Surgery Additional Past Surgical History / Comment(s): Left knee replacement Past Psychological History: No Psychological Hx Reported Smoking Status: Never smoker Past Alcohol Use History: None Reported Past Drug Use History: None Reported - Past Family History Father Family Medical History: Myocardial Infarction ([place]) Brother(s) Family Medical History: Coronary Artery Disease (CAD) Son(s) Family Medical History: CVA/TIA Medications and Allergies Home Medications Medication Instructions Recorded Confirmed Type Aspirin EC [Ecotrin Low Dose] 81 mg PO HS #30 tab 11/01/20 12/16/24 Rx Levothyroxine Sodium [Synthroid] 112 mcg PO AC-BRKFST #30 tab 11/01/20 12/16/24 Rx Dulaglutide [Trulicity] 0.75 mg SQ MO 11/09/24 12/16/24 History dexAMETHasone [Decadron] 20 mg PO MO 11/09/24 12/16/24 History traMADol HCL 25 mg PO Q8H PRN 11/09/24 12/16/24 History Acyclovir [Zovirax] 400 mg PO BID 12/16/24 12/16/24 History Apixaban [Eliquis Starter Pack 5 - 10 mg PO DIRECTED 30 Days 12/16/24 Rx (for VTE)] #1 each Bortezomib 1 dose IJ WE 12/16/24 12/16/24 History Fluconazole [Diflucan] 100 mg PO DAILY 12/16/24 12/16/24 History Lenalidomide 15 mg PO DIRECTED 12/16/24 12/16/24 History Ondansetron Odt [Zofran ODT] 4 mg PO Q8HR PRN 12/16/24 12/16/24 History Pantoprazole [Protonix] 40 mg PO DAILY #30 tab 12/16/24 Rx Sulfamethox-Tmp 800-160Mg [Bactrim 1 tab PO MOWEFR 12/16/24 12/16/24 History DS 800-160 mg] Valsartan [Diovan] 80 mg PO HS 12/16/24 12/16/24 History atenoloL [Tenormin] 25 mg PO HS 12/16/24 12/16/24 History Allergies Allergy/AdvReac Type Severity Reaction Status Date / Time epinephrine AdvReac Intermediate Rapid Verified 12/16/24 08:16 Heart Rate Physical Exam Vitals: Vital Signs Temp Pulse Pulse Resp BP BP Pulse Ox 12/16/24 06:51 98.6 F 67 18 105/60 99 12/16/24 01:22 97.7 F 70 16 99/50 100 12/15/24 23:20 97.9 F 65 20 116/75 98 12/15/24 20:19 97.4 F L 74 18 131/75 98 Intake and Output 12/15/24 12/16/24 12/16/24 22:59 06:59 14:59 Intake Total 61.299 Output Total 200 100 Balance -138.701 -100 Intake: Intake, IV Titration 61.299 Amount Heparin Sod,Pork in 0.45% 61.299 NaCl 25,000 unit In 0.45 % NaCl 1 250ml.bag @ 18 UNITS/KG/HR 11.676 mls/hr IV .[id number] [facility] Rx#: [id number] Output: Urine 200 100 Other: Voiding Method External Catheter Weight 64.864 kg VITAL SIGNS: [As above] GENERAL: Alert and oriented 3, sitting up in bed, no acute distress. HEENT: Atraumatic, conjunctivae normal. eyes normal. Oral mucosa moist. NECK: Supple, no JVD. No thyroid enlargement. CARDIOVASCULAR: S1, S2 regular. No audible murmur. RESPIRATION: Unlabored, equal air entry ,breath sounds diminished in the bases. ABDOMEN: Soft, nondistended, nontender . No guarding. no masses palpable. Positive Bowel sounds. LEGS: Left lower extremity edema ,warm, pink, tender to palpation, positive DP pulse. NERVOUS SYSTEM: Cranial N 2-12 grossly normal. No focal deficits. Strength and sensation grossly intact. Skin: Warm and dry, no rash. Results CBC & Chem 7: 12/16/24 04:13 12/16/24 04:13 Labs: Abnormal Lab Results - Last 24 Hours (Table) 12/15/24 12/15/24 12/16/24 Range/Units 21:18 21:18 04:13 RBC 3.06 L (3.80-5.40) m/uL Hgb 9.6 L D (11.4-16.0) gm/dL Hct 28.8 L (34.0-46.0) % RDW 16.6 H (11.5-15.5) % Plt Count 144 L D (150-450) k/uL Lymphocytes # 0.9 L (1.0-4.8) k/uL APTT 83.9 H (22.0-30.0) sec Sodium 126 L (137-145) mmol/L Chloride (98-107) mmol/L Carbon Dioxide 18 L (22-30) mmol/L BUN 26 H (7-17) mg/dL Creatinine 1.12 H (0.52-1.04) mg/dL Glucose 225 H (74-99) mg/dL POC Glucose (mg/dL) (70-110) mg/dL Calcium 8.1 L (8.4-10.2) mg/dL Total Protein 6.0 L (6.3-8.2) g/dL Albumin 3.0 L (3.5-5.0) g/dL 12/16/24 12/16/24 12/16/24 Range/Units 04:13 04:13 06:11 RBC 3.08 L (3.80-5.40) m/uL Hgb 9.4 L (11.4-16.0) gm/dL Hct 29.1 L (34.0-46.0) % RDW 16.9 H (11.5-15.5) % Plt Count (150-450) k/uL Lymphocytes # (1.0-4.8) k/uL APTT (22.0-30.0) sec Sodium 127 L (137-145) mmol/L Chloride 97 L (98-107) mmol/L Carbon Dioxide 19 L (22-30) mmol/L BUN 29 H (7-17) mg/dL Creatinine 1.26 H (0.52-1.04) mg/dL Glucose 168 H (74-99) mg/dL POC Glucose (mg/dL) 196 H (70-110) mg/dL Calcium (8.4-10.2) mg/dL Total Protein (6.3-8.2) g/dL Albumin 3.4 L (3.5-5.0) g/dL 12/16/24 Range/Units 11:06 RBC (3.80-5.40) m/uL Hgb (11.4-16.0) gm/dL Hct (34.0-46.0) % RDW (11.5-15.5) % Plt Count (150-450) k/uL Lymphocytes # (1.0-4.8) k/uL APTT (22.0-30.0) sec Sodium (137-145) mmol/L Chloride (98-107) mmol/L Carbon Dioxide (22-30) mmol/L BUN (7-17) mg/dL Creatinine (0.52-1.04) mg/dL Glucose (74-99) mg/dL POC Glucose (mg/dL) 239 H (70-110) mg/dL Calcium (8.4-10.2) mg/dL Total Protein (6.3-8.2) g/dL Albumin (3.5-5.0) g/dL Assessment and Plan Assessment: DVT, left common femoral vein to the popliteal vein Possible nondisplaced fibula fracture suggested per imaging Recently diagnosed with multiple myeloma, on chemotherapy and radiation, with subsequent sedentary lifestyle Hyponatremia Dehydration Acute renal insufficiency secondary to the above Chronic anemia secondary to multiple myeloma Thrombocytopenia, now within normal limits Diabetes mellitus CAD, ID, CABG Hypertension Hyperlipidemia Hypothyroidism Obesity, BMI 28 Plan: Continue on current medication regimen ,monitoring and symptomatic treatment. Gentle IV fluid hydration. Blood pressure soft, ARB on hold. maintain anticoagulation with heparin drip. Vascular surgery consult in place. Lantus insulin, NovoLog sliding scale and hemoglobin A1c ordered. Close monitoring of sodium, renal function with repeat labs ordered for a.m. orthopedics consulted for further review of left lower extremity imaging. Once cleared by orthopedics, we will arrange for PT/OT outpatient. The impression and plan of care has been dictated as directed. : I performed a history and examination of this patient, discussed the same with the dictator. I agree with the dictator's note ,documented as a scribe. Any additional findings or plans will be noted.
[2024-12-16] MEDS: INSULIN GLARGINE (LANTUS) 100 UNIT/ML SYR SQ SCH (12:06)
--- NOTE | 2024-12-16 12:44 | P.GSCN ---
History of Present Illness Consult date: 12/16/24 Reason for Consult: Left lower extremity DVT Requesting physician: Jarett Gomez Jr History of present illness: This a pleasant 79-year-old female with a history of multiple myeloma currently on chemo treatment, hypertension, coronary artery and disease diabetes mellitus who presented to the emergency department with concerns for left lower extremity swelling and pain. Patient states she started noticing pain and swelling on Saturday. She denies any recent injury, surgery, no recent travel. She had a venous duplex of the left lower extremity that was positive for deep vein thrombosis from the common femoral vein to the popliteal vein. She denies any previous history of DVT or pulmonary embolism. She states that she has been pretty sedentary and not moving around much secondary to chemo and previous radiation. States that she has some pain that shoots down her leg and some burning sensation. She denies any shortness of breath, no chest pain, abdominal pain nausea or vomiting. She was started on IV heparin drip with consultation to vascular surgery. Review of Systems A 14 point review systems was completed all pertinent positives and negatives as stated in the HPI. 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 History of Any Multi-Drug Resistant Organisms: None Reported Past Surgical History: Section, Orthopedic Surgery Additional Past Surgical History / Comment(s): Left knee replacement Past Psychological History: No Psychological Hx Reported Smoking Status: Never smoker Past Alcohol Use History: None Reported Past Drug Use History: None Reported - Past Family History Father Family Medical History: Myocardial Infarction ([place]) Brother(s) Family Medical History: Coronary Artery Disease (CAD) Son(s) Family Medical History: CVA/TIA Medications and Allergies Home Medications Medication Instructions Recorded Confirmed Type Aspirin EC [Ecotrin Low Dose] 81 mg PO HS #30 tab 11/01/20 12/16/24 Rx Levothyroxine Sodium [Synthroid] 112 mcg PO AC-BRKFST #30 tab 11/01/20 12/16/24 Rx Dulaglutide [Trulicity] 0.75 mg SQ MO 11/09/24 12/16/24 History dexAMETHasone [Decadron] 20 mg PO MO 11/09/24 12/16/24 History traMADol HCL 25 mg PO Q8H PRN 11/09/24 12/16/24 History Acyclovir [Zovirax] 400 mg PO BID 12/16/24 12/16/24 History Apixaban [Eliquis Starter Pack 5 - 10 mg PO DIRECTED 30 Days 12/16/24 Rx (for VTE)] #1 each Bortezomib 1 dose IJ WE 12/16/24 12/16/24 History Fluconazole [Diflucan] 100 mg PO DAILY 12/16/24 12/16/24 History Lenalidomide 15 mg PO DIRECTED 12/16/24 12/16/24 History Ondansetron Odt [Zofran ODT] 4 mg PO Q8HR PRN 12/16/24 12/16/24 History Pantoprazole [Protonix] 40 mg PO DAILY #30 tab 12/16/24 Rx Sulfamethox-Tmp 800-160Mg [Bactrim 1 tab PO MOWEFR 12/16/24 12/16/24 History DS 800-160 mg] Valsartan [Diovan] 80 mg PO HS 12/16/24 12/16/24 History atenoloL [Tenormin] 25 mg PO HS 12/16/24 12/16/24 History Allergies Allergy/AdvReac Type Severity Reaction Status Date / Time epinephrine AdvReac Intermediate Rapid Verified 12/16/24 08:16 Heart Rate Surgical - Exam Vital Signs Temp Pulse Resp BP Pulse Ox 97.4 F L 74 18 131/75 98 12/15/24 20:19 12/15/24 20:19 12/15/24 20:19 12/15/24 20:19 12/15/24 20:19 General appearance: The patient is alert, oriented, appears in no acute distr ess. HET: Head is normocephalic and atraumatic. Pupils are equal and reactive. Neck: Supple. Heart: Regular. Lungs: Equal expansion, normal respiratory effort. Abdomen: Soft, nontender, nondistended. Extremities: Normal skin color and turgor. Left lower extremity swelling from knee down to toes. Palpable femoral and DP pulses. Neurological: No focal deficits. Alert and oriented. Results - Labs 12/16/24 04:13 12/16/24 04:13 Abnormal Lab Results - Last 24 Hours (Table) 12/15/24 12/15/24 12/16/24 Range/Units 21:18 21:18 04:13 RBC 3.06 L (3.80-5.40) m/uL Hgb 9.6 L D (11.4-16.0) gm/dL Hct 28.8 L (34.0-46.0) % RDW 16.6 H (11.5-15.5) % Plt Count 144 L D (150-450) k/uL Lymphocytes # 0.9 L (1.0-4.8) k/uL APTT 83.9 H (22.0-30.0) sec Sodium 126 L (137-145) mmol/L Chloride (98-107) mmol/L Carbon Dioxide 18 L (22-30) mmol/L BUN 26 H (7-17) mg/dL Creatinine 1.12 H (0.52-1.04) mg/dL Glucose 225 H (74-99) mg/dL POC Glucose (mg/dL) (70-110) mg/dL Calcium 8.1 L (8.4-10.2) mg/dL Total Protein 6.0 L (6.3-8.2) g/dL Albumin 3.0 L (3.5-5.0) g/dL 12/16/24 12/16/24 12/16/24 Range/Units 04:13 04:13 06:11 RBC 3.08 L (3.80-5.40) m/uL Hgb 9.4 L (11.4-16.0) gm/dL Hct 29.1 L (34.0-46.0) % RDW 16.9 H (11.5-15.5) % Plt Count (150-450) k/uL Lymphocytes # (1.0-4.8) k/uL APTT (22.0-30.0) sec Sodium 127 L (137-145) mmol/L Chloride 97 L (98-107) mmol/L Carbon Dioxide 19 L (22-30) mmol/L BUN 29 H (7-17) mg/dL Creatinine 1.26 H (0.52-1.04) mg/dL Glucose 168 H (74-99) mg/dL POC Glucose (mg/dL) 196 H (70-110) mg/dL Calcium (8.4-10.2) mg/dL Total Protein (6.3-8.2) g/dL Albumin 3.4 L (3.5-5.0) g/dL Diabetes panel 12/15/24 12/16/24 Range/Units 21:18 04:13 Sodium 126 L 127 L (137-145) mmol/L Potassium 4.2 5.0 (3.5-5.1) mmol/L Chloride 100 97 L (98-107) mmol/L Carbon Dioxide 18 L 19 L (22-30) mmol/L BUN 26 H 29 H (7-17) mg/dL Creatinine 1.12 H 1.26 H (0.52-1.04) mg/dL Glucose 225 H 168 H (74-99) mg/dL Calcium 8.1 L 9.1 (8.4-10.2) mg/dL AST 24 34 (14-36) U/L ALT 29 32 (4-34) U/L Alkaline Phosphatase 73 86 (38-126) U/L Total Protein 6.0 L 6.8 (6.3-8.2) g/dL Albumin 3.0 L 3.4 L (3.5-5.0) g/dL Calcium panel 12/15/24 12/16/24 Range/Units 21:18 04:13 Calcium 8.1 L 9.1 (8.4-10.2) mg/dL Albumin 3.0 L 3.4 L (3.5-5.0) g/dL Pituitary panel 12/15/24 12/16/24 Range/Units 21:18 04:13 Sodium 126 L 127 L (137-145) mmol/L Potassium 4.2 5.0 (3.5-5.1) mmol/L Chloride 100 97 L (98-107) mmol/L Carbon Dioxide 18 L 19 L (22-30) mmol/L BUN 26 H 29 H (7-17) mg/dL Creatinine 1.12 H 1.26 H (0.52-1.04) mg/dL Glucose 225 H 168 H (74-99) mg/dL Calcium 8.1 L 9.1 (8.4-10.2) mg/dL Adrenal panel 12/15/24 12/16/24 Range/Units 21:18 04:13 Sodium 126 L 127 L (137-145) mmol/L Potassium 4.2 5.0 (3.5-5.1) mmol/L Chloride 100 97 L (98-107) mmol/L Carbon Dioxide 18 L 19 L (22-30) mmol/L BUN 26 H 29 H (7-17) mg/dL Creatinine 1.12 H 1.26 H (0.52-1.04) mg/dL Glucose 225 H 168 H (74-99) mg/dL Calcium 8.1 L 9.1 (8.4-10.2) mg/dL Total Bilirubin 0.7 0.9 (0.2-1.3) mg/dL AST 24 34 (14-36) U/L ALT 29 32 (4-34) U/L Alkaline Phosphatase 73 86 (38-126) U/L Total Protein 6.0 L 6.8 (6.3-8.2) g/dL Albumin 3.0 L 3.4 L (3.5-5.0) g/dL Assessment and Plan Assessment: 1. Left lower extremity deep vein thrombosis 2. Sedentary lifestyle 3. Multiple myeloma Plan: 1. Continue IV heparin drip 2. Eliquis sent to pharmacy to check for prescription coverage 3. Apply SOPHIA hose to left lower extremity 4. Elevate left lower extremity 5. Activity as tolerated 6. Consult to oncology for recommendations on anticoagulation secondary to multiple myeloma and chemo therapy 7. No plans at this time for any vascular surgical intervention Thank you for this consultation, we will continue to follow. The impression and plan of care has been dictated as directed. Dr. Annalee Xavier performed a history and examination of this patient, discussed the same with the dictator. I agree with the dictator's note ,documented as a scribe. Any additional findings or plans will be noted.
[2024-12-16] MEDS ORDERED: ONDANSETRON 4 MG/2 ML VIAL IVP PRN (15:10)
[2024-12-16 16:46] LABS: Glucose,Whole Blood 293 mg/dL (70-110)
[2024-12-16] MEDS: ACYCLOVIR 200 MG CAP PO SCH (20:26)
[2024-12-16] MEDS: atenoloL 25 MG TAB PO SCH (20:26)
[2024-12-16 20:31] LABS: Glucose,Whole Blood 246 mg/dL (70-110)
[2024-12-16] MEDS ORDERED: LOSARTAN 25 MG TAB PO SCH (21:00)
[2024-12-17 00:03] LABS: Glucose,Whole Blood 175 mg/dL (70-110)
[2024-12-17 06:06] LABS: Glucose,Whole Blood 183 mg/dL (70-110)
--- NOTE | 2024-12-17 08:08 | P.DS ---
Providers Date of admission: 12/15/24 22:37 Expected date of discharge: 12/17/24 Attending physician: Jarett Gomez Consults: 12/15/24 22:36 Consult Physician Routine Consulting Provider: Frank Mcallister Consult Reason/Comments: LLE DVT Do you want consulting provider notified?: Yes 12/16/24 08:21 Consult Physician Routine Consulting Provider: John Trammell Consult Reason/Comments: Lt fibula ? nondisplaced fracture Do you want consulting provider notified?: Yes 12/16/24 15:16 Consult Physician Routine Consulting Provider: Malik Steinberg Consult Reason/Comments: Left lower extremity DVT, anticoagulation recommendations. Multiple myelom Do you want consulting provider notified?: Yes Primary care physician: [facility] Course: Final Diagnoses: DVT, left common femoral vein to the popliteal vein Possible nondisplaced fibula fracture suggested per imaging Recently diagnosed with multiple myeloma, on chemotherapy and radiation, with subsequent sedentary lifestyle Hyponatremia Dehydration Acute renal insufficiency secondary to the above Chronic anemia secondary to multiple myeloma Thrombocytopenia, now within normal limits Diabetes mellitus, hemoglobin A1c pending Left buttock stage II pressure ulcer, present on admission CAD, [place], CABG Hypertension Hyperlipidemia Hypothyroidism Obesity, BMI 28 Hospital course:This is a 79-year-old female with past medical history significant for recently diagnosed multiple myeloma with pathological fracture of L2, on RVD, steroids and palliative radiation(reports MRI completed-post PET scan -not available at this time),CAD,[place], CABG, hypertension, diabetes mellitus type 2, hypothyroidism and multiple other medical issues presented to the ER with progressive painful left lower extremity edema, painful ambulation. Reports it has progressively worsened over the last 2 weeks with shooting burning pain down her left leg. Reports she had tripped over clothes, denies trauma of her left leg/ankle/foot. Denies chest pain, palpitations or shortness of breath. Denies lightheadedness, dizziness or focal deficits. Reports over the last few weeks after receiving chemotherapy and radiation, she has been extremely fatigued, sedentary. States her routine has declined to minimal exertion. Blood pressures soft. Venous Doppler reported DVT involving the left leg from the common femoral vein to the popliteal vein. Left ankle x-ray reported curvilinear lucency through the fibula suggestive of nondisplaced fractures consider confirmation with CT. Afebrile, normal WBC. Hemoglobin 9.4, platelets 16.9, sodium 127, potassium 5, bicarb 19, BUN 29, creatinine 1.26, calcium 9.1, albumin 3 -3.4. Blood sugars 160s to low 200s, hemoglobin A1c 6.5 on 11/03 noted. Gentle IV fluid hydration. Blood pressure soft, ARB on hold. maintain anticoagulation with heparin drip. Vascular surgery consult in place. Lantus insulin, NovoLog sliding scale and hemoglobin A1c ordered. Close monitoring of sodium, renal function with repeat labs ordered for a.m. orthopedics consulted for further review of left lower extremity imaging. Once cleared by orthopedics, we will arrange for PT/OT outpatient. 12/17/2024 evaluated by vascular surgery with no surgical intervention recommended at this time with oncology consulted for recommendations on anticoagulation secondary to multiple myeloma/chemotherapy. Patient will be discharged home today in a stable condition with guarded prognosis pending oncology an ticoagulation recommendations and orthopedic eval/recommendations, in a stable condition with guarded prognosis. The impression and plan of care has been dictated as directed. : I performed a history and examination of this patient, discussed the same with the dictator. I agree with the dictator's note ,documented as a scribe. Any additional findings or plans will be noted. Patient Condition at Discharge: Stable Plan - Discharge Summary Discharge Rx Participant: No New Discharge Prescriptions: New Pantoprazole [Protonix] 40 mg PO DAILY #30 tab Apixaban [Eliquis Starter Pack (for VTE)] 5 - 10 mg PO DIRECTED 30 Days #1 each Continue Aspirin EC [Ecotrin Low Dose] 81 mg PO HS #30 tab Levothyroxine Sodium [Synthroid] 112 mcg PO AC-BRKFST #30 tab traMADol HCL 25 mg PO Q8H PRN PRN Reason: Pain atenoloL [Tenormin] 25 mg PO HS Ondansetron Odt [Zofran ODT] 4 mg PO Q8HR PRN PRN Reason: Nausea Fluconazole [Diflucan] 100 mg PO DAILY Lenalidomide 15 mg PO DIRECTED dexAMETHasone [Decadron] 20 mg PO MO Dulaglutide [Trulicity] 0.75 mg SQ MO Valsartan [Diovan] 80 mg PO HS Sulfamethox-Tmp 800-160Mg [Bactrim DS 800-160 mg] 1 tab PO MOWEFR Acyclovir [Zovirax] 400 mg PO BID Bortezomib 1 dose IJ WE Discharge Medication List Aspirin EC [Ecotrin Low Dose] 81 mg PO HS #30 tab 11/01/20 [Rx] Levothyroxine Sodium [Synthroid] 112 mcg PO AC-BRKFST #30 tab 11/01/20 [Rx] Dulaglutide [Trulicity] 0.75 mg SQ MO 11/09/24 [History] dexAMETHasone [Decadron] 20 mg PO MO 11/09/24 [History] traMADol HCL 25 mg PO Q8H PRN 11/09/24 [History] Acyclovir [Zovirax] 400 mg PO BID 12/16/24 [History] Apixaban [Eliquis Starter Pack (for VTE)] 5 - 10 mg PO DIRECTED 30 Days #1 each 12/16/24 [Rx] Bortezomib 1 dose IJ WE 12/16/24 [History] Fluconazole [Diflucan] 100 mg PO DAILY 12/16/24 [History] Lenalidomide 15 mg PO DIRECTED 12/16/24 [History] Ondansetron Odt [Zofran ODT] 4 mg PO Q8HR PRN 12/16/24 [History] Pantoprazole [Protonix] 40 mg PO DAILY #30 tab 12/16/24 [Rx] Sulfamethox-Tmp 800-160Mg [Bactrim DS 800-160 mg] 1 tab PO MOWEFR 12/16/24 [History] Valsartan [Diovan] 80 mg PO HS 12/16/24 [History] atenoloL [Tenormin] 25 mg PO HS 12/16/24 [History] Follow up Appointment(s)/Referral(s): [facility], [NON-STAFF] - As Needed Jojo Pierce DO [Doctor of Osteopathic Medicine] - 1 Week Jarett Gomez Jr, DO [Primary Care Provider] - 12/22/24 11:30 am Activity/Diet/Wound Care/Special Instructions: Home care, PT/OT weight bear as tolerated,LLE Discharge Disposition: HOME WITH HOME HEALTH SERVICES
[2024-12-17] MEDS: HEPARIN SODIUM 1,000 UN/ML (10ML VL) IV PRN (09:34)
[2024-12-17 10:48] LABS: HCT 22.9 % (37.2-46.3); HGB 7.5 g/dL (12.0-15.0); MCH 30.5 pg (27.0-32.0); MCHC 32.8 g/dL (32.0-37.0); MCV 93.1 FL (80.0-97.0); Mean Platelet Volume 11.8 FL (9.5-12.2); NRBC Per 100 WBC 0 X 10*3/uL (0.00-0.01); Platelet Count 183 X 10*3/uL (140-440); RBC 2.46 X 10*6/uL (4.10-5.20); RDW 16.2 % (11.5-14.5); WBC 6.55 X 10*3/uL (4.50-10.00)
[2024-12-17 11:37] LABS: Basophils # (M) 0 X 10*3/uL (0.00-0.10); Eosinophils # (M) 0 X 10*3/uL (0.04-0.35); Lymphocytes # (M) 0.66 X 10*3/uL (0.90-5.00); Monocytes # (M) 0.52 X 10*3/uL (0.20-1.00); Myelocytes % 3 % (0-0); Neutrophils # (M) 5.17 X 10*3/uL (1.80-7.70); Neutrophils % (M) 79 %; Nucleated Red Blood Cells 1 /100 WBCS
[2024-12-17 11:39] LABS: Glucose,Whole Blood 216 mg/dL (70-110)
[2024-12-17] MEDS: SODIUM CHLORIDE 0.9% 250 ML IV ONE (12:10)
--- NOTE | 2024-12-17 12:39 | US ---
EXAMINATION TYPE: US venous doppler duplex LE RT DATE OF EXAM: 12/17/2024 12:29 PM COMPARISON: NONE CLINICAL INDICATION: Female, 79 years old with history of +DVT LLE, baseline study; positive DVT left leg 2 days ago, no symptoms, Pain TECHNIQUE: The lower extremity deep venous system is examined utilizing real time linear array sonog arash with graded compression, color doppler sonography, and spectral doppler. SIDE PERFORMED: Right FINDINGS: VESSELS IMAGED: Common Femoral Vein Deep Femoral Vein Greater Saphenous Vein * Femoral Vein Popliteal Vein Small Saphenous Vein * Proximal Calf Veins (* superficial vessels) Right Leg: Negative for DVT, Color Doppler imaging shows patency of the vessels. Spectral waveforms are within normal limits. IMPRESSION: No evidence of deep vein thrombosis of the right lower extremity. [facility], , 12/17/2024 12:37 PM
[2024-12-17 12:55] LABS: BUN/Creat Ratio 17.54 Ratio (12.00-20.00); Blood Urea Nitrogen 22.8 mg/dL (9.0-27.0); Calcium 9.1 mg/dL (8.7-10.3); Carbon Dioxide 18.3 mmol/L (21.6-31.8); Chloride 105 mmol/L (96-109); Glucose 164 mg/dL (70-110); Potassium 4.7 mmol/L (3.5-5.5); Sodium 136 mmol/L (135-145)
--- NOTE | 2024-12-17 13:57 | CT ---
EXAMINATION TYPE: CT angio chest DATE OF EXAM: 12/17/2024 COMPARISON: CT chest, abdomen and pelvis dated 10/22/2024 CLINICAL INDICATION: Female, 79 years old with history of +DVT, r/o PE, baseline study; PHH, SOB, PE TECHNIQUE: CTA scan of the thorax is performed with IV Contrast, patient injected with 100ml mL of Isovue 370, p ulmonary embolism protocol. MIP images are created and reviewed. 3-D post processing was performed. CT DLP: 230.[address] CTDI: mGy Automated exposure control for dose reduction was used. FINDINGS: LUNGS: The lungs are grossly clear, there is no concerning parenchymal mass or nodule identified. T here is no pleural effusion or pneumothorax seen. The tracheobronchial tree is patent. MEDIASTINUM: There is satisfactory enhancement of the pulmonary artery and its branches, there is no CT evidence for pulmonary embolism. There are no greater than 1 cm hilar or mediastinal lymph nodes. No pericardial effusion is seen. OTHER: marked cholelithiasis IMPRESSION: 1. NO EVIDENCE OF PULMONARY EMBOLISM. 2. NO ACUTE CARDIOPULMONARY DISEASE. 3. MARKED CHOLELITHIASIS. [facility], , 12/17/2024 1:54 PM
--- NOTE | 2024-12-17 14:06 | P.PN ---
Subjective Progress Note Date: 12/17/24 Principal diagnosis: DVT Patient is seen and examined today as a follow-up. States her left lower extremity swelling has improved as well as pain. She denies any shortness of br eath or chest pain at this time. She remains on IV heparin drip awaiting recommendations from hematology. Objective - Vital Signs Vital signs: Vital Signs Temp 98.0 F 12/17/24 06:48 Pulse 54 L 12/17/24 06:48 Resp 17 12/17/24 06:48 BP 120/55 12/17/24 06:48 Pulse Ox 96 12/17/24 06:48 FiO2 Intake & Output 12/16/24 12/17/24 12/17/24 18:59 06:59 18:59 Intake Total 67.803 120.898 Output Total 500 250 Balance -432.197 -129.102 Intake: Intake, IV Titration 67.803 120.898 Amount Heparin Sod,Pork in 0.45% 67.803 120.898 NaCl 25,000 unit In 0.45 % NaCl 1 250ml.bag @ 18 UNITS/KG/HR 11.676 mls/hr IV .[id number] [facility] Rx#: [id number] Output: Urine 500 250 Other: Voiding Method External Catheter - Exam General appearance: The patient is alert, oriented, appears in no acute dis tress. HET: Head is normocephalic and atraumatic. Pupils are equal and reactive. Neck: Supple. Heart: Regular. Lungs: Equal expansion, normal respiratory effort. Abdomen: Soft, nontender, nondistended. Extremities: Normal skin color and turgor. Palpable DP pulse. Swelling improved. SOPHIA hose in place. Thigh is soft. Neurological: No focal deficits. Strength and sensation are grossly intact. - Labs CBC & Chem 7: 12/17/24 06:24 12/17/24 06:24 Labs: Abnormal Lab Results - Last 24 Hours (Table) 12/16/24 12/16/24 12/16/24 Range/Units 10:54 11:06 16:45 APTT 87.8 H (22.0-30.0) sec POC Glucose (mg/dL) 239 H 293 H (70-110) mg/dL 12/16/24 12/16/24 12/17/24 Range/Units 18:18 20:30 00:01 APTT 63.2 H (22.0-30.0) sec POC Glucose (mg/dL) 246 H 175 H (70-110) mg/dL 12/17/24 12/17/24 Range/Units 06:04 06:24 APTT 37.2 H (22.0-30.0) sec POC Glucose (mg/dL) 183 H (70-110) mg/dL Assessment and Plan Assessment: 1. Left lower extremity deep vein thrombosis 2. Sedentary lifestyle 3. Multiple myeloma Plan: 1. May transition to oral anticoagulation per recommendations from hematology 2. Eliquis sent to pharmacy to check for prescription coverage 3. Continue with compression stocking 4. Elevate left lower extremity 5. Activity as tolerated 6. No indication for any vascular surgical intervention Thank you for this consultation, patient is cleared from vascular surgical services for discharge. The impression and plan of care has been dictated as directed. Dr. Annalee Xavier performed a history and examination of this patient, discussed the same with the dictator. I agree with the dictator's note ,documented as a scribe. Any additional findings or plans will be noted.
[2024-12-17 14:43] VITALS: BP 125/69; PULSE 70; RESP 18; TEMP 97.6
[2024-12-17] MEDS: APIXABAN 5 MG TAB PO ONE (15:05)
--- NOTE | 2024-12-17 20:20 | P.CONS ---
History of Present Illness - Reason for Consult Consult date: 12/17/24 LLE DVT, MM Requesting physician: Sunita Hart - Chief Complaint LLE edema - History of Present Illness Ms. Meza is a 79-year-old woman with a past medical history significant for CAD s/p four-vessel CABG along with diabetes mellitus type 2 who presents for evaluation of multiple myeloma. In late May 2024, she noted developing low back pain after helping move a lawn more back into the garage. Since then, she has had persistent back pain despite physical therapy, which she felt may have made the back pain worse. She did have MRI imaging ordered through orthopedics on 10/05/2024 noting pathologic marrow infiltration throughout the lumbar spine and pelvis with pathologic fracture of L2 vertebral body and extraosseous extension of tumor causing left neural foraminal narrowing at L1-L2 and L2-L3. Labs on 10/19/2024 were notable for elevated total protein at 11.1 with creatinine 1.1, calcium 10.5, LDH 176, elevated beta-2 microglobulin of 5.3, hemoglobin 11.7 (MCV 93.8), WBC 7.44, platelets 288. Serum protein electrophoresis noted M protein measuring 4.04 g/dL with kappa light chain being 90.1 and lambda light chain being 1.18. PET/CT on 10/23/2024 noted destructive osseous lesion in the L2 vertebral body with soft tissue component that was FDG avid measuring 3.7 x 3.5 cm. T12 vertebral body had increased FDG avidity with an SUV of 5.1. The osseous structures overall had a demineralized appearance with abnormal sclerosis with prior fractures of the pubic rami noted. Given the back pain along with elevated M protein, there was concern for multiple myeloma. She was seen by radiation oncology on 10/30/2024 will be initiating palliative radiation therapy on 11/10/2024 and has been receiving dexamethasone 4 mg daily with mild relief. Based off of the elevated total protein, M protein of 4.04 g/dL, elevated kappa light chain at 90.1, and beta-2 microglobulin of 5.30, and Bence- Howard proteins in the urine electrophoresis, there is high clinical concern for multiple myeloma. She does appear to have stage II multiple myeloma as serum be ta-2 microglobulin is greater than 3.5, but less than 5.5. In addition to palliative radiation therapy, pt was recommended to start on RVD, completing cycle 1 day 15 on 12/09/24. Patient presented to the emergency room for left lower extremity edema. Patient reports over the last 3 days has been having left leg swelling and discomfort at which time she presented to the ER for further evaluation. Patient did not denies shortness of breath, chest pain and palpitations. No previous history of blood clots. Patient has been started on heparin drip. 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 History of Any Multi-Drug Resistant Organisms: None Reported Past Surgical History: Section, Orthopedic Surgery Additional Past Surgical History / Comment(s): Left knee replacement Past Psychological History: No Psychological Hx Reported Smoking Status: Never smoker Past Alcohol Use History: None Reported Past Drug Use History: None Reported - Past Family History Father Family Medical History: Myocardial Infarction ([place]) Brother(s) Family Medical History: Coronary Artery Disease (CAD) Son(s) Family Medical History: CVA/TIA Medications and Allergies Home Medications Medication Instructions Recorded Confirmed Type Aspirin EC [Ecotrin Low Dose] 81 mg PO HS #30 tab 11/01/20 12/16/24 Rx Levothyroxine Sodium [Synthroid] 112 mcg PO AC-BRKFST #30 tab 11/01/20 12/16/24 Rx Dulaglutide [Trulicity] 0.75 mg SQ MO 11/09/24 12/16/24 History dexAMETHasone [Decadron] 20 mg PO MO 11/09/24 12/16/24 History traMADol HCL 25 mg PO Q8H PRN 11/09/24 12/16/24 History Acyclovir [Zovirax] 400 mg PO BID 12/16/24 12/16/24 History Apixaban [Eliquis Starter Pack 5 - 10 mg PO DIRECTED 30 Days 12/16/24 Rx (for VTE)] #1 each Bortezomib 1 dose IJ WE 12/16/24 12/16/24 History Fluconazole [Diflucan] 100 mg PO DAILY 12/16/24 12/16/24 History Lenalidomide 15 mg PO DIRECTED 12/16/24 12/16/24 History Ondansetron Odt [Zofran ODT] 4 mg PO Q8HR PRN 12/16/24 12/16/24 History Pantoprazole [Protonix] 40 mg PO DAILY #30 tab 12/16/24 Rx Sulfamethox-Tmp 800-160Mg [Bactrim 1 tab PO MOWEFR 12/16/24 12/16/24 History DS 800-160 mg] Valsartan [Diovan] 80 mg PO HS 12/16/24 12/16/24 History atenoloL [Tenormin] 25 mg PO HS 12/16/24 12/16/24 History Allergies Allergy/AdvReac Type Severity Reaction Status Date / Time epinephrine AdvReac Intermediate Rapid Verified 12/16/24 08:16 Heart Rate Physical Exam Vitals: Vital Signs Temp Pulse Pulse Resp BP Pulse Ox 12/17/24 09:00 63 54 L 17 12/17/24 06:48 98.0 F 54 L 17 120/55 96 12/17/24 01:43 97.9 F 63 17 138/85 99 12/16/24 19:09 97.9 F 67 17 112/68 98 12/16/24 13:15 98.6 F 63 20 114/66 98 Intake and Output 12/16/24 12/17/24 12/17/24 22:59 06:59 14:59 Intake Total 120.898 27.092 Output Total 400 250 Balance -400 -129.102 27.092 Intake: Intake, IV Titration 120.898 27.092 Amount Heparin Sod,Pork in 0.45% 120.898 27.092 NaCl 25,000 unit In 0.45 % NaCl 1 250ml.bag @ 18 UNITS/KG/HR 11.676 mls/hr IV .[id number] [facility] Rx#: [id number] Output: Urine 400 250 Other: Voiding Method External Catheter External Catheter - Constitutional General appearance: average body habitus, no acute distress - EENT Eyes: anicteric sclerae, EOMI ENT: hearing grossly normal - Respiratory Respiratory: bilateral: CTA - Cardiovascular LLE edema Rhythm: regular - Gastrointestinal General gastrointestinal: soft, tenderness - Integumentary Integumentary: no cyanotic, no jaundiced - Psychiatric Psychiatric: A&O x's 3 Results CBC & Chem 7: 12/17/24 06:24 12/17/24 06:24 Labs: Abnormal Lab Results - Last 24 Hours (Table) 12/16/24 12/16/24 12/16/24 Range/Units 16:45 18:18 20:30 RBC (4.10-5.20) X 10*6/uL Hgb (12.0-15.0) g/dL Hct (37.2-46.3) % RDW (11.5-14.5) % Lymphocytes # (Manual) (0.90-5.00) X 10*3/uL Eosinophils # (Manual) (0.04-0.35) X 10*3/uL APTT 63.2 H (22.0-30.0) sec POC Glucose (mg/dL) 293 H 246 H (70-110) mg/dL Hemoglobin A1c (<=6.0) % 12/17/24 12/17/24 12/17/24 Range/Units 00:01 06:04 06:24 RBC (4.10-5.20) X 10*6/uL Hgb (12.0-15.0) g/dL Hct (37.2-46.3) % RDW (11.5-14.5) % Lymphocytes # (Manual) (0.90-5.00) X 10*3/uL Eosinophils # (Manual) (0.04-0.35) X 10*3/uL APTT (22.0-30.0) sec POC Glucose (mg/dL) 175 H 183 H (70-110) mg/dL Hemoglobin A1c 8.3 H (<=6.0) % 12/17/24 12/17/24 12/17/24 Range/Units 06:24 06:24 11:38 RBC 2.46 L (4.10-5.20) X 10*6/uL Hgb 7.5 L (12.0-15.0) g/dL Hct 22.9 L (37.2-46.3) % RDW 16.2 H (11.5-14.5) % Lymphocytes # (Manual) 0.66 L (0.90-5.00) X 10*3/uL Eosinophils # (Manual) 0 L (0.04-0.35) X 10*3/uL APTT 37.2 H (22.0-30.0) sec POC Glucose (mg/dL) 216 H (70-110) mg/dL Hemoglobin A1c (<=6.0) % Venous US: report reviewed Assessment and Plan (1) Multiple myeloma Status: Acute Code(s): C90.00 - MULTIPLE MYELOMA NOT HAVING ACHIEVED REMISSION SNOMED Code(s): 659650880 (2) Deep vein thrombosis (DVT) of lower extremity Status: Acute Code(s): I82.409 - ACUTE EMBOLISM AND THOMBOS UNSP DEEP VN UNSP LOWER EXTREMITY SNOMED Code(s): 246916054 Plan: LLE DVT: Patient presented to the emergency room for left lower extremity edema. Patient reports over the last 3 days she has been having left leg swelling and discomfort -LLE doppler positive for DVT. Patient has been started on heparin drip. -Will obtain CTA chest and RLE doppler for baseline -Pt can be transitioned to Eliquis. Consult placed to care management for prior auth for eliquis Case discussed with admitting team today Multiple myeloma: -Oncology history as dictated in the HPI -Initiated palliative radiation therapy on 11/10/2024. Started on RVD, completing cycle 1 day 15 on 12/09/24. Missed start of cycle 2. Plan is for discharge today. Will reschedule chemo for tomorrow attests: I have seen and examined pt, performed H&P, developed impression and plan of care. Discussed with dictator. Agree with documentation, dictated as a scribe.
== END 2024-12-17 15:55 | disposition home health service (06) | DRG 300 ==
LOC: EC 20:11 → 4SSUR 22:37
PROVIDERS: ADMIT Family Medicine; ATTEND Family Medicine
DX: I82.412 Acute embolism and thrombosis of left femoral vein (principal); C90.00 Multiple myeloma not having achieved remission; L89.322 Pressure ulcer of left buttock, stage 2; E87.1 Hypo-osmolality and hyponatremia; I82.432 Acute embolism and thrombosis of left popliteal vein; E11.9 Type 2 diabetes mellitus without complications; D63.0 Anemia in neoplastic disease; E03.9 Hypothyroidism, unspecified; I10 Essential (primary) hypertension; E66.9 Obesity, unspecified; E86.0 Dehydration; E78.5 Hyperlipidemia, unspecified; N28.9 Disorder of kidney and ureter, unspecified; Z96.652 Presence of left artificial knee joint; I25.10 Atherosclerotic heart disease of native coronary artery without angina pectoris; Z68.28 Body mass index [BMI] 28.0-28.9, adult; Z95.1 Presence of aortocoronary bypass graft; Z79.890 Hormone replacement therapy; Z79.899 Other long term (current) drug therapy; Z72.3 Lack of physical exercise; Z92.3 Personal history of irradiation; Z92.21 Personal history of antineoplastic chemotherapy; I25.2 Old myocardial infarction
CPT/HCPCS: 36415; 71275; 80048; 80053; 83036; 83605; 83880; 85025; 85610; 85730; 99291

== ENCOUNTER 2024-12-19 17:29 | Observation (INO) | payer MEDICARE ==
--- NOTE | 2024-12-19 18:30 | ED ---
General Adult HPI - General Chief complaint: Extremity Problem,Nontraumatic Stated complaint: left leg swelling Time Seen by Provider: 12/19/24 17:50 Source: patient, RN notes reviewed, old records reviewed Mode of arrival: ambulatory Limitations: no limitations - History of Present Illness Initial comments: 79-year-old female presenting with left leg swelling. Patient was diagnosed with DVT on recent hospitalization. She does have a history of multiple myeloma and follows with hematology oncology. She was seen by vascular surgery and was transition from heparin to Eliquis. She has been home for 24 hours and has had significant increased swelling in the left leg. This is associated with increased pain. No chest pain or dyspnea. - Related Data Home Medications Medication Instructions Recorded Confirmed Dulaglutide [Trulicity] 0.75 mg SQ MO 11/09/24 12/19/24 dexAMETHasone [Decadron] 20 mg PO MO 11/09/24 12/19/24 traMADol HCL 25 mg PO Q8H PRN 11/09/24 12/19/24 Acyclovir [Zovirax] 400 mg PO BID 12/16/24 12/19/24 Bortezomib 1 dose IJ WE 12/16/24 12/19/24 Fluconazole [Diflucan] 100 mg PO DAILY 12/16/24 12/19/24 Lenalidomide 15 mg PO DIRECTED 12/16/24 12/19/24 Ondansetron Odt [Zofran ODT] 4 mg PO Q8HR PRN 12/16/24 12/19/24 Sulfamethox-Tmp 800-160Mg [Bactrim 1 tab PO MOWEFR 12/16/24 12/19/24 DS 800-160 mg] Valsartan [Diovan] 80 mg PO HS 12/16/24 12/19/24 atenoloL [Tenormin] 25 mg PO HS 12/16/24 12/19/24 Apixaban [Eliquis Starter Pack See Taper PO DIRECTED 12/19/24 12/19/24 (for VTE)] Previous Rx's Medication Instructions Recorded Aspirin EC [Ecotrin Low Dose] 81 mg PO HS #30 tab 11/01/20 Levothyroxine Sodium [Synthroid] 112 mcg PO AC-BRKFST #30 tab 11/01/20 Pantoprazole [Protonix] 40 mg PO DAILY #30 tab 12/16/24 Allergies Allergy/AdvReac Type Severity Reaction Status Date / Time epinephrine AdvReac Intermediate Rapid Verified 12/19/24 19:10 Heart Rate Review of Systems ROS Statement: Those systems with pertinent positive or pertinent negative responses have been documented in the HPI. ROS Other: All systems not noted in ROS Statement are negative. 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 Mother Additional Family Medical History / Comment(s): from "enlarged heart" at 87 years old Brother(s) Family Medical History: Coronary Artery Disease (CAD) Additional Family Medical History / Comment(s): Multiple stents placed Son(s) Family Medical History: CVA/TIA Additional Family Medical History / Comment(s): from stroke at 41 years old General Exam Limitations: no limitations General appearance: alert, in no apparent distress Head exam: Present: atraumatic, normocephalic Eye exam: Present: normal appearance, PERRL ENT exam: Present: normal exam Neck exam: Present: normal inspection. Absent: tenderness, meningismus Respiratory exam: Present: normal lung sounds bilaterally. Absent: respiratory distress, wheezes Cardiovascular Exam: Present: regular rate, normal rhythm GI/Abdominal exam: Present: soft. Absent: distended, tenderness, guarding Extremities exam: Present: other (Left leg is significantly swollen) Neurological exam: Present: alert, oriented X3 Psychiatric exam: Present: normal affect, normal mood Skin exam: Present: warm, dry, intact Course Vital Signs 12/19/24 12/19/24 17:45 19:13 Temperature 97.8 F Pulse Rate 73 64 Respiratory 18 18 Rate Blood Pressure 135/81 119/56 O2 Sat by Pulse 100 99 Oximetry Medical Decision Making - Medical Decision Making Was pt. sent in by a medical professional or institution (JAZIEL Lau, [employer], urgent care, hospital, or fdc...) When possible be specific @Sent in by Dr. Gomez Did you speak to anyone other than the patient for history (EMS, parent, family, police, friend...)? What history was obtained from this source @ -[No] Did you review nursing and triage notes (agree or disagree)? Why? @ -[I reviewed and agree with nursing and triage notes] Were old charts reviewed (outside hosp., previous admission, EMS record, old EKG, old radiological studies, urgent care reports/EKG's, fdc records)? Report findings @ -[No old charts were reviewed] Differential Diagnosis worsening DVT, PE, cerulea dolens EKG interpreted by me (3pts min.). @ -[As above] X-rays interpreted by me (1pt min.). @ -[None done] CT interpreted by me (1pt min.). @ -[None done] U/S interpreted by me (1pt. min.). @ -Ultrasound shows extensive DVT in the left lower extremity What testing was considered but not performed or refused? (CT, X-rays, U/S, labs)? Why? @ -[None] What meds were considered but not given or refused? Why? @ -[None] Did you discuss the management of the patient with other professionals (professionals i.e. JAZIEL Lau, [employer], lab, RT, psych nurse, psychotherapist social worker, insulation packer, teacher, chief marketing officer, rn field case manager)? Give summary @ -Case discussed with Dr. Gomez, will admit Was smoking cessation discussed for >3mins.? @ -[No] Was critical care preformed (if so, how long)? @ -[No] Were there social determinants of health that impacted care today? How? (Homelessness, low income, unemployed, alcoholism, drug addiction, transportation, low edu. Level, literacy, decrease access to med. care, detention, rehab)? @ -[No] Was there de-escalation of care discussed even if they declined (Discuss DNR or withdrawal of care, Hospice)? DNR status @ -[No] What co-morbidities impacted this encounter? (DM, HTN, Smoking, COPD, CAD, Cancer, CVA, ARF, Chemo, Hep., AIDS, mental health diagnosis, sleep apnea, morbid obesity)? @ -Multiple myeloma, recent diagnosis of DVT. Was patient admitted / discharged? Hospital course, mention meds given and rou te, prescriptions, significant lab abnormalities, going to OR and other pertinent info. @ -[79-year-old female with recent discharge on Eliquis with known DVT with increased leg pain and swelling causing difficulty ambulating. The swelling to the left lower extremity is extensive. There is cap refill present. Ultrasound confirms extensive DVT. Repeat laboratory studies have been sent, the patient is started back on heparin. Admitted to her primary care provider Dr. Gomez with vascular surgery on consult. Undiagnosed new problem with uncertain prognosis? @ -[No] Drug Therapy requiring intensive monitoring for toxicity (Heparin, Nitro, Insulin, Cardizem)? @ -[No] Were any procedures done? @ -[No] Diagnosis/symptom? @ -[Extensive left lower extremity DVT Acute, or Chronic, or Acute on Chronic? @ -Acute Uncomplicated (without systemic symptoms) or Complicated (systemic symptoms)? @ -[default] Side effects of treatment? @ -[No] Exacerbation, Progression, or Severe Exacerbation? @ -[No] Poses a threat to life or bodily function? How? (Chest pain, [place], CA, pneumonia, PE, COPD, DKA, ARF, appy, cholecystitis, CVA, Diverticulitis, Homicidal, Suicidal, threat to staff... and all critical care pts) @ -[Yes, pulmonary embolism, - Lab Data Result diagrams: 12/19/24 18:40 Lab Results 12/19/24 Range/Units 18:40 Sodium 129 L (137-145) mmol/L Potassium 4.6 (3.5-5.1) mmol/L Chloride 101 (98-107) mmol/L Carbon Dioxide 17 L (22-30) mmol/L Anion Gap 11 mmol/L BUN 44 H (7-17) mg/dL Creatinine 1.49 H (0.52-1.04) mg/dL Est GFR (CKD-EPI)AfAm 39 (>60 ml/min/1.73 sqM) Est GFR (CKD-EPI)NonAf 34 (>60 ml/min/1.73 sqM) Glucose 213 H (74-99) mg/dL Calcium 9.4 (8.4-10.2) mg/dL Total Bilirubin 0.4 (0.2-1.3) mg/dL AST 33 (14-36) U/L ALT 35 H (4-34) U/L Alkaline Phosphatase 81 (38-126) U/L Total Protein 6.2 L (6.3-8.2) g/dL Albumin 3.2 L (3.5-5.0) g/dL Disposition Clinical Impression: Deep vein thrombosis (DVT) of lower extremity, Hyponatremia, Multiple myeloma Disposition: ADMITTED IP TO THIS [facility] Condition: Stable Is patient prescribed a controlled substance at d/c from ED?: No Referrals: Jarett Gomez Jr, [Primary Care Provider] - 1-2 days Time of Disposition: 20:04
[2024-12-19 19:07] LABS: ALT 35 U/L (4-34); AST 33 U/L (14-36); African American GFR (CKD) 39 (>60 ml/min/1.73 sqM); Albumin 3.2 g/dL (3.5-5.0); Alkaline Phosphatase 81 U/L (38-126); Anion Gap 11 mmol/L; Blood Urea Nitrogen 44 mg/dL (7-17); Calcium 9.4 mg/dL (8.4-10.2); Carbon Dioxide 17 mmol/L (22-30); Chloride 101 mmol/L (98-107); Glucose 213 mg/dL (74-99); Non-African American GFR(CKD) 34 (>60 ml/min/1.73 sqM); Potassium 4.6 mmol/L (3.5-5.1); Sodium 129 mmol/L (137-145); Total Bilirubin 0.4 mg/dL (0.2-1.3); Total Protein 6.2 g/dL (6.3-8.2)
[2024-12-19] MEDS ORDERED: ACETAMINOPHEN TAB 325 MG TAB PO PRN (19:19)
[2024-12-19] MEDS ORDERED: HYDROmorphone 0.5 MG/0.5 ML SYRINGE IVP PRN (19:19)
[2024-12-19] MEDS ORDERED: NALOXONE 0.4 MG/ML 1 ML VIAL IV PRN (19:19)
--- NOTE | 2024-12-19 19:56 | US ---
EXAMINATION TYPE: US venous doppler duplex LE LT DATE OF EXAM: 12/19/2024 7:42 PM COMPARISON: 12/15/2024 CLINICAL INDICATION: Female, 79 years old with history of worsening swelling; Patient states left leg dvt on 12/15/24. Was admitted to hospital. released yesterday, increased swelling to leg. on thinners. Patient is on chemo TECHNIQUE: The lower extremity deep venous system is examined utilizing real time linear array sonog arash with graded compression, color doppler sonography, and spectral doppler. SIDE PERFORMED: Left FINDINGS: VESSELS IMAGED: Common Femoral Vein Deep Femoral Vein Greater Saphenous Vein * Femoral Vein Popliteal Vein Small Saphenous Vein * Proximal Calf Veins (* superficial vessels) Left Leg: Positive for DVT involving the left external iliac, common femoral, femoral and popliteal veins. Additional thrombosis noted in the proximal calf veins. IMPRESSION: Deep vein thrombosis throughout the left lower extremity. [facility], , 12/19/2024 7:54 PM
[2024-12-19] MEDS ORDERED: HEPARIN SODIUM 1,000 UN/ML (10ML VL) IV PRN (20:01)
[2024-12-19 20:21] LABS: Anisocytosis Slight; Basophils # (A) 0.1 k/uL (0-0.2); Basophils % (A) 1 %; Eosinophils # (A) 0.1 k/uL (0-0.7); Eosinophils % (A) 1 %; HCT 25.5 % (34.0-46.0); HGB 8.3 gm/dL (11.4-16.0); Hypochromasia Slight; Lymphocytes # (A) 0.9 k/uL (1.0-4.8); Lymphocytes % (A) 10 %; MCH 31.2 pg (25.0-35.0); MCHC 32.4 g/dL (31.0-37.0); MCV 96.2 fL (80.0-100.0); Macrocytosis Slight; Mean Platelet Volume 8.5; Monocytes # (A) 0.6 k/uL (0-1.0); Monocytes % (A) 7 %; Neutrophils % (A) 79 %; Platelet Count 251 k/uL (150-450); RBC 2.65 m/uL (3.80-5.40); RDW 17.3 % (11.5-15.5); WBC 8.9 k/uL (3.8-10.6)
[2024-12-19 20:48] LABS: INR 1.1 (<1.2); Partial Thromboplastin Time 22.2 sec (22.0-30.0); Prothrombin Time 12.4 sec (10.0-12.5)
[2024-12-19] MEDS: HEPARIN SOD,PORK IN 0.45% NACL 25,000 UNIT in 0.45% NACL 1 250ML.BAG IV SCH (21:57)
[2024-12-19] MEDS: HEPARIN SODIUM 1,000 UN/ML (10ML VL) IV ONE (21:59)
[2024-12-20 08:21] LABS: Glucose,Whole Blood 227 mg/dL (70-110)
[2024-12-20 09:27] LABS: HCT 23.6 % (37.2-46.3); HGB 7.6 g/dL (12.0-15.0); MCH 30.6 pg (27.0-32.0); MCHC 32.2 g/dL (32.0-37.0); MCV 95.2 FL (80.0-97.0); Mean Platelet Volume 11.1 FL (9.5-12.2); NRBC Per 100 WBC 0.02 X 10*3/uL (0.00-0.01); Platelet Count 248 X 10*3/uL (140-440); RBC 2.48 X 10*6/uL (4.10-5.20); RDW 16.7 % (11.5-14.5); WBC 7.66 X 10*3/uL (4.50-10.00)
[2024-12-20] MEDS ORDERED: ONDANSETRON ODT 4 MG TAB PO PRN (09:34)
[2024-12-20] MEDS: PANTOPRAZOLE 40 MG TABLET PO SCH (10:02)
[2024-12-20 10:12] LABS: Acanthocytes 2+ (None Seen); Basophils # (M) 0 X 10*3/uL (0.00-0.10); Eosinophils # (M) 0.31 X 10*3/uL (0.04-0.35); Lymphocytes # (M) 1.07 X 10*3/uL (0.90-5.00); Metamyelocytes % 1 % (0-0); Monocytes # (M) 0.69 X 10*3/uL (0.20-1.00); Neutrophils # (M) 5.52 X 10*3/uL (1.80-7.70); Neutrophils % (M) 72 %
[2024-12-20 12:18] LABS: Glucose,Whole Blood 292 mg/dL (70-110)
[2024-12-20] MEDS ORDERED: DEXTROSE 50% SYRINGE 50 ML IVP PRN ×2 (13:19)
[2024-12-20] MEDS: bisacodyL 5 MG TABLET.DR PO PRN (15:17)
[2024-12-20] MEDS: APIXABAN 5 MG TAB PO SCH (15:17)
--- NOTE | 2024-12-20 15:18 | P.GSCN ---
History of Present Illness Consult date: 12/20/24 Reason for Consult: Deep venous thrombosis left lower extremity. History of present illness: Patient is a 79-year-old female with a history of multiple myeloma who was recently diagnosed with deep venous thrombosis. She was placed on oral ant icoagulation and dismissed on an outpatient for outpatient follow-up. She began to experience leg swelling and the patient was readmitted to the hospital due to this leg swelling. The patient was not utilizing support hose and was keeping her legs in a dependent position for an extensive period of time during the day. She denies any shortness of breath. Past Medical History Past Medical History: Coronary Artery Disease (CAD), Diabetes Mellitus, Hyperlip idemia, Hypertension, Thyroid Disorder Additional Past Medical History / Comment(s): Chronic neck pain from compressed disks in her neck, cancer back History of Any Multi-Drug Resistant Organisms: None Reported Past Surgical History: Section, Orthopedic Surgery Additional Past Surgical History / Comment(s): Left knee replacement, bypass Past Psychological History: No Psychological Hx Reported Smoking Status: Never smoker Past Alcohol Use History: None Reported Past Drug Use History: None Reported - Past Family History Father Family Medical History: [place] Inf[place]ction ([place]) Additional Family Medical History / Comment(s): at 70 years old from myocardial infarction-suspected. Mother Additional Family Medical History / Comment(s): from "enlarged heart" at 87 years old Brother(s) Family Medical History: Coronary Artery Disease (CAD) Additional Family Medical History / Comment(s): Multiple stents placed Son(s) Family Medical History: CVA/TIA Additional Family Medical History / Comment(s): from stroke at 43 years old Medications and Allergies Home Medications Medication Instructions Recorded Confirmed Type Aspirin EC [Ecotrin Low Dose] 81 mg PO HS #30 tab 11/01/20 12/19/24 Rx Levothyroxine Sodium [Synthroid] 112 mcg PO AC-BRKFST #30 tab 11/01/20 12/19/24 Rx Dulaglutide [Trulicity] 0.75 mg SQ MO 11/09/24 12/19/24 History dexAMETHasone [Decadron] 20 mg PO MO 11/09/24 12/19/24 History traMADol HCL 25 mg PO Q8H PRN 11/09/24 12/19/24 History Acyclovir [Zovirax] 400 mg PO BID 12/16/24 12/19/24 History Bortezomib 1 dose IJ WE 12/16/24 12/19/24 History Fluconazole [Diflucan] 100 mg PO DAILY 12/16/24 12/19/24 History Lenalidomide 15 mg PO DIRECTED 12/16/24 12/19/24 History Ondansetron Odt [Zofran ODT] 4 mg PO Q8HR PRN 12/16/24 12/19/24 History Pantoprazole [Protonix] 40 mg PO DAILY #30 tab 12/16/24 12/19/24 Rx Sulfamethox-Tmp 800-160Mg [Bactrim 1 tab PO MOWEFR 12/16/24 12/19/24 History DS 800-160 mg] Valsartan [Diovan] 80 mg PO HS 12/16/24 12/19/24 History atenoloL [Tenormin] 25 mg PO HS 12/16/24 12/19/24 History Apixaban [Eliquis Starter Pack See Taper PO DIRECTED 12/19/24 12/19/24 History (for VTE)] Allergies Allergy/AdvReac Type Severity Reaction Status Date / Time epinephrine AdvReac Intermediate Rapid Verified 12/19/24 19:10 Heart Rate Surgical - Exam Osteopathic Statement: *. No significant issues noted on an osteopathic structural exam other than those noted in the History and Physical/Consult. Vital Signs Temp Pulse Resp BP Pulse Ox 97.8 F 73 18 135/81 100 12/19/24 17:45 12/19/24 17:45 12/19/24 17:45 12/19/24 17:45 12/19/24 17:45 Patient Seen Date: 12/20/24 Patient Seen Time: 14:00 - General Patient is awake, alert in no apparent distress. Lungs: Clear to auscultation bilaterally. Heart: Regular without murmur. Abdomen: Soft and otherwise benign. Lower extremities: Are elevated and currently there is no leg edema. Results - Labs 12/20/24 03:30 12/19/24 18:40 Abnormal Lab Results - Last 24 Hours (Table) 12/19/24 12/19/24 12/20/24 Range/Units 18:40 20:05 03: RBC 2.65 L (3.80-5.40) m/uL Hgb 8.3 L (11.4-16.0) gm/dL Hct 25.5 L (34.0-46.0) % RDW 17.3 H (11.5-15.5) % Lymphocytes # 0.9 L (1.0-4.8) k/uL NRBC/100 WBC Diff (0.00-0.01) X 10*3/uL Acanthocytes (Spur) (None Seen) APTT >200.0 H* (22.0-30.0) sec Sodium 129 L (137-145) mmol/L Carbon Dioxide 17 L (22-30) mmol/L BUN 44 H (7-17) mg/dL Creatinine 1.49 H (0.52-1.04) mg/dL Glucose 213 H (74-99) mg/dL POC Glucose (mg/dL) (70-110) mg/dL ALT 35 H (4-34) U/L Total Protein 6.2 L (6.3-8.2) g/dL Albumin 3.2 L (3.5-5.0) g/dL 12/20/24 12/20/24 12/20/24 Range/Units 03:30 08:19 12:16 RBC 2.48 L (3.80-5.40) m/uL Hgb 7.6 L (11.4-16.0) gm/dL Hct 23.6 L (34.0-46.0) % RDW 16.7 H (11.5-15.5) % Lymphocytes # (1.0-4.8) k/uL NRBC/100 WBC Diff 0.02 H (0.00-0.01) X 10*3/uL Acanthocytes (Spur) 2+ A (None Seen) APTT (22.0-30.0) sec Sodium (137-145) mmol/L Carbon Dioxide (22-30) mmol/L BUN (7-17) mg/dL Creatinine (0.52-1.04) mg/dL Glucose (74-99) mg/dL POC Glucose (mg/dL) 227 H 292 H (70-110) mg/dL ALT (4-34) U/L Total Protein (6.3-8.2) g/dL Albumin (3.5-5.0) g/dL 12/20/24 Range/Units 12:28 RBC (3.80-5.40) m/uL Hgb (11.4-16.0) gm/dL Hct (34.0-46.0) % RDW (11.5-15.5) % Lymphocytes # (1.0-4.8) k/uL NRBC/100 WBC Diff (0.00-0.01) X 10*3/uL Acanthocytes (Spur) (None Seen) APTT 90.0 H (22.0-30.0) sec Sodium (137-145) mmol/L Carbon Dioxide (22-30) mmol/L BUN (7-17) mg/dL Creatinine (0.52-1.04) mg/dL Glucose (74-99) mg/dL POC Glucose (mg/dL) (70-110) mg/dL ALT (4-34) U/L Total Protein (6.3-8.2) g/dL Albumin (3.5-5.0) g/dL Diabetes panel 12/19/24 Range/Units 18:40 Sodium 129 L (137-145) mmol/L Potassium 4.6 (3.5-5.1) mmol/L Chloride 101 (98-107) mmol/L Carbon Dioxide 17 L (22-30) mmol/L BUN 44 H (7-17) mg/dL Creatinine 1.49 H (0.52-1.04) mg/dL Glucose 213 H (74-99) mg/dL Calcium 9.4 (8.4-10.2) mg/dL AST 33 (14-36) U/L ALT 35 H (4-34) U/L Alkaline Phosphatase 81 (38-126) U/L Total Protein 6.2 L (6.3-8.2) g/dL Albumin 3.2 L (3.5-5.0) g/dL Calcium panel 12/19/24 Range/Units 18:40 Calcium 9.4 (8.4-10.2) mg/dL Albumin 3.2 L (3.5-5.0) g/dL Pituitary panel 12/19/24 Range/Units 18:40 Sodium 129 L (137-145) mmol/L Potassium 4.6 (3.5-5.1) mmol/L Chloride 101 (98-107) mmol/L Carbon Dioxide 17 L (22-30) mmol/L BUN 44 H (7-17) mg/dL Creatinine 1.49 H (0.52-1.04) mg/dL Glucose 213 H (74-99) mg/dL Calcium 9.4 (8.4-10.2) mg/dL Adrenal panel 12/19/24 Range/Units 18:40 Sodium 129 L (137-145) mmol/L Potassium 4.6 (3.5-5.1) mmol/L Chloride 101 (98-107) mmol/L Carbon Dioxide 17 L (22-30) mmol/L BUN 44 H (7-17) mg/dL Creatinine 1.49 H (0.52-1.04) mg/dL Glucose 213 H (74-99) mg/dL Calcium 9.4 (8.4-10.2) mg/dL Total Bilirubin 0.4 (0.2-1.3) mg/dL AST 33 (14-36) U/L ALT 35 H (4-34) U/L Alkaline Phosphatase 81 (38-126) U/L Total Protein 6.2 L (6.3-8.2) g/dL Albumin 3.2 L (3.5-5.0) g/dL Assessment and Plan Assessment: 1: Left lower extremity deep venous thrombosis/post thrombotic syndrome. 2: History of multiple myeloma. Plan: I had a long discussion with the patient regarding post thrombotic syndrome and associated symptoms such as leg edema. I recommended patient utilize knee-high external compression support hose while out of bed. SOPHIA hose have been ordered however patient will need something a b it more robust as an outpatient. I would like to see the patient in my office in 1 to 2 weeks for follow-up in this regard. From a surgical standpoint it is reasonable to convert the patient back to her oral anticoagulant therapy.
[2024-12-20 17:15] LABS: Glucose,Whole Blood 218 mg/dL (70-110)
[2024-12-20] MEDS: traMADol 50 MG TAB PO PRN (17:20)
[2024-12-20] MEDS: INSULIN LISPRO (HumaLOG) 100 UNIT/ML 10 mL VL SQ SCH (17:21)
[2024-12-20] MEDS: SODIUM CHLORIDE 0.9% 500 ML 500 ML IV ONE (17:46)
[2024-12-20] MEDS: DEXTROSE 5%-0.45% NACL 1,000 ML IV SCH (18:30)
[2024-12-20 20:31] LABS: Glucose,Whole Blood 196 mg/dL (70-110)
[2024-12-20] MEDS: atenoloL 25 MG TAB PO SCH (20:37)
[2024-12-20] MEDS: VALSARTAN 80 MG TAB PO SCH (20:38)
[2024-12-20] MEDS: ASPIRIN 81 MG PO SCH (20:38)
[2024-12-21 06:18] LABS: Glucose,Whole Blood 196 mg/dL (70-110)
--- NOTE | 2024-12-21 08:31 | P.HPIM ---
History of Present Illness H&P Date: 12/20/24 Chief Complaint: DVT pain with ambulation awake alert oriented times three, vss, afebrile recently diagnosed with multiple myeloma, left lower extreme dvt Review of Systems Constitutional: Reports anorexia, Reports malaise, Reports night sweats, Reports weakness, Reports weight loss Ears, nose, mouth and throat: Reports as per HPI Breasts: Reports as per HPI Cardiovascular: Reports claudication (left lower ext) Respiratory: Reports as per HPI Gastrointestinal: Reports as per HPI Genitourinary: Reports as per HPI Menstruation: Reports postmenopausal Musculoskeletal: Reports as per HPI Integumentary: Reports as per HPI Neurological: Reports as per HPI Psychiatric: Reports as per HPI 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, cancer back History of Any Multi-Drug Resistant Organisms: None Reported Past Surgical History: Section, Orthopedic Surgery Additional Past Surgical History / Comment(s): Left knee replacement, bypass Past Psychological History: No Psychological Hx Reported Smoking Status: Never smoker Past Alcohol Use History: None Reported Past Drug Use History: None Reported - Past Family History Father Family Medical History: [place] Inf[place]ction ([place]) Additional Family Medical History / Comment(s): at 70 years old from myocardial infarction-suspected. Mother Additional Family Medical History / Comment(s): from "enlarged heart" at 87 years old Brother(s) Family Medical History: Coronary Artery Disease (CAD) Additional Family Medical History / Comment(s): Multiple stents placed Son(s) Family Medical History: CVA/TIA Additional Family Medical History / Comment(s): from stroke at 41 years old Medications and Allergies Home Medications Medication Instructions Recorded Confirmed Type Aspirin EC [Ecotrin Low Dose] 81 mg PO HS #30 tab 11/01/20 12/19/24 Rx Levothyroxine Sodium [Synthroid] 112 mcg PO AC-BRKFST #30 tab 11/01/20 12/19/24 Rx Dulaglutide [Trulicity] 0.75 mg SQ MO 11/09/24 12/19/24 History dexAMETHasone [Decadron] 20 mg PO MO 11/09/24 12/19/24 History traMADol HCL 25 mg PO Q8H PRN 11/09/24 12/19/24 History Acyclovir [Zovirax] 400 mg PO BID 12/16/24 12/19/24 History Bortezomib 1 dose IJ WE 12/16/24 12/19/24 History Fluconazole [Diflucan] 100 mg PO DAILY 12/16/24 12/19/24 History Lenalidomide 15 mg PO DIRECTED 12/16/24 12/19/24 History Ondansetron Odt [Zofran ODT] 4 mg PO Q8HR PRN 12/16/24 12/19/24 History Pantoprazole [Protonix] 40 mg PO DAILY #30 tab 12/16/24 12/19/24 Rx Sulfamethox-Tmp 800-160Mg [Bactrim 1 tab PO MOWEFR 12/16/24 12/19/24 History DS 800-160 mg] Valsartan [Diovan] 80 mg PO HS 12/16/24 12/19/24 History atenoloL [Tenormin] 25 mg PO HS 12/16/24 12/19/24 History Apixaban [Eliquis Starter Pack See Taper PO DIRECTED 12/19/24 12/19/24 History (for VTE)] Allergies Allergy/AdvReac Type Severity Reaction Status Date / Time epinephrine AdvReac Intermediate Rapid Verified 12/19/24 19:10 Heart Rate Physical Exam Osteopathic Statement: *. No significant issues noted on an osteopathic structural exam other than those noted in the History and Physical/Consult. Vitals: Vital Signs Temp Pulse Pulse Resp BP BP Pulse Ox 12/21/24 07:00 97.4 F L 67 15 122/67 96 12/21/24 02:24 98.2 F 71 14 114/73 100 12/20/24 18:42 98.1 F 74 15 118/70 97 12/20/24 14:27 98.3 F 69 15 103/52 98 Intake and Output 12/20/24 12/21/24 12/21/24 22:59 06:59 14:59 Intake Total 28.546 Balance 28.546 Intake: Intake, IV Titration 28.546 Amount Heparin Sod,Pork in 0.45% 28.546 NaCl 25,000 unit In 0.45 % NaCl 1 250ml.bag @ 18 UNITS/KG/HR 11.839 mls/hr IV .Q21H7M [facility] Rx#: [id number] Other: Voiding Method External Catheter External Catheter # Voids 2 2 General: [Patient awake, alert and oriented times 3. Patient in no acute distress.] HEENT: [PERRL. EOMI. No pharyngeal erythema or exudate.] Neck: [No adenopathy.] Cardiac: [Heart regular in rate and rhythm. No S3. No S4. No clicks, rubs. No murmur.] Lungs: [Clear to auscultation bilaterally.] Abdomen: [No mass. No organomegaly. Bowel sounds presnt and normoactive in all 4 quadrants.] Extremes: claudication left lower ext : female genetalia Musculoskeletal: [No joint erythema, edema or tenderness.] Skin: [No rash.] Neurologic: [No lateralizing deficits. CN II - XII grossly intact.] Lymphatic: [No adenopathy.] Results CBC & Chem 7: 12/20/24 03:12/19/24 18:40 Labs: Abnormal Lab Results - Last 24 Hours (Table) 12/20/24 12/20/24 12/20/24 Range/Units 03:30 08:19 12:16 RBC 2.48 L (4.10-5.20) X 10*6/uL Hgb 7.6 L (12.0-15.0) g/dL Hct 23.6 L (37.2-46.3) % RDW 16.7 H (11.5-14.5) % NRBC/100 WBC Diff 0.02 H (0.00-0.01) X 10*3/uL Acanthocytes (Spur) 2+ A (None Seen) APTT (22.0-30.0) sec POC Glucose (mg/dL) 227 H 292 H (70-110) mg/dL 12/20/24 12/20/24 12/20/24 Range/Units 12:28 17:13 20:29 RBC (4.10-5.20) X 10*6/uL Hgb (12.0-15.0) g/dL Hct (37.2-46.3) % RDW (11.5-14.5) % NRBC/100 WBC Diff (0.00-0.01) X 10*3/uL Acanthocytes (Spur) (None Seen) APTT 90.0 H (22.0-30.0) sec POC Glucose (mg/dL) 218 H 196 H (70-110) mg/dL 12/21/24 Range/Units 06:17 RBC (4.10-5.20) X 10*6/uL Hgb (12.0-15.0) g/dL Hct (37.2-46.3) % RDW (11.5-14.5) % NRBC/100 WBC Diff (0.00-0.01) X 10*3/uL Acanthocytes (Spur) (None Seen) APTT (22.0-30.0) sec POC Glucose (mg/dL) 196 H (70-110) mg/dL Thrombosis Risk Factor Assmnt - DVT/VTE Prophylaxis DVT/VTE Prophylaxis: Pharmacologic Prophylaxis ordered - Choose All That Apply Each Risk Factor Represents 3 Points: Age 75 years or older (history multiplemyeloma) Thrombosis Risk Factor Assessment Total Risk Factor Score: 3 Thrombosis Risk Factor Assessment Level: Moderate Risk Assessment and Plan (1) Deep vein thrombosis (DVT) of lower extremity Current Visit: Yes Status: Acute Code(s): I82.409 - ACUTE EMBOLISM AND THOMBOS UNSP DEEP VN UNSP LOWER EXTREMITY SNOMED Code(s): 204682307 (2) Hyponatremia Current Visit: Yes Status: Acute Code(s): E87.1 - HYPO-OSMOLALITY AND HYPONATREMIA SNOMED Code(s): 97342055 (3) Multiple myeloma Current Visit: Yes Status: Acute Code(s): C90.00 - MULTIPLE MYELOMA NOT HAVING ACHIEVED REMISSION SNOMED Code(s): 191375015 (4) Coronary artery 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 Current Visit: No Status: Acute Code(s): E11.59 - TYPE 2 DIABETES MELLITUS WITH OTH CIRCULATORY COMPLICATIONS; I25.10 - ATHSCL HEART DISEASE OF [place] CORONARY ARTERY W/O ANG PCTRS SNOMED Code(s): 93624534199799280 (5) H/O four vessel coronary artery bypass graft Current Visit: No Status: Acute Code(s): Z95.1 - PRESENCE OF AORTOCORONARY B YPASS GRAFT SNOMED Code(s): 433458141 (6) Hypertension Current Visit: No Status: Acute Code(s): I10 - ESSENTIAL (PRIMARY) HYPERTENSION SNOMED Code(s): 28641583 Plan: admit to hosp consult onc consult vascular surgery pain management Time with Patient: Greater than 30
[2024-12-21] MEDS: dexAMETHasone 4 MG TAB PO SCH (08:56)
[2024-12-21] MEDS: FLUCONAZOLE 100 MG TAB PO SCH (08:56)
[2024-12-21] MEDS: LEVOTHYROXINE 112 MCG TAB PO SCH (08:56)
--- NOTE | 2024-12-21 09:09 | P.PN ---
Subjective Progress Note Date: 12/21/24 Principal diagnosis: Left lower extremity DVT Patient is seen and examined this morning as a follow-up. She has a SOPHIA hose compression stocking in place. Swelling is improved to the left lower extremity. Patient also reports improvement in pain. She has been transitioned back to her oral anticoagulation. Objective - Vital Signs Vital signs: Vital Signs Temp 97.4 F L 12/21/24 07:00 Pulse 67 12/21/24 07:00 Resp 15 12/21/24 07:00 BP 122/67 12/21/24 07:00 Pulse Ox 96 12/21/24 07:00 FiO2 Intake & Output 12/20/24 12/21/24 12/21/24 18:59 06:59 18:59 Intake Total 91.160 Output Total 200 Balance -108.840 Intake: Intake, IV Titration 91.160 Amount Heparin Sod,Pork in 0.45% 91.160 NaCl 25,000 unit In 0.45 % NaCl 1 250ml.bag @ 18 UNITS/KG/HR 11.839 mls/hr IV .Q21H7M [facility] Rx#: [id number] Output: Urine 200 Other: Voiding Method External Catheter # Voids 2 - Exam General appearance: The patient is alert, oriented, appears in no acute distress. HET: Head is normocephalic and atraumatic. Neck: Supple. Lungs: Equal expansion, normal respiratory effort. Abdomen: Soft, nontender, nondistended. Extremities: Normal skin color and turgor. Left lower extremity with SOPHIA hose compression stocking in place to with improved swelling. Calf and thigh are soft. Palpable DP pulse. Neurological: No focal deficits. Alert and oriented. - Labs CBC & Chem 7: 12/20/24 03:30 12/19/24 18:40 Labs: Abnormal Lab Results - Last 24 Hours (Table) 12/20/24 12/20/24 12/20/24 Range/Units 03:30 12:16 12:28 RBC 2.48 L (4.10-5.20) X 10*6/uL Hgb 7.6 L (12.0-15.0) g/dL Hct 23.6 L (37.2-46.3) % RDW 16.7 H (11.5-14.5) % NRBC/100 WBC Diff 0.02 H (0.00-0.01) X 10*3/uL Acanthocytes (Spur) 2+ A (None Seen) APTT 90.0 H (22.0-30.0) sec POC Glucose (mg/dL) 292 H (70-110) mg/dL 12/20/24 12/20/24 12/21/24 Range/Units 17:13 20:29 06:17 RBC (4.10-5.20) X 10*6/uL Hgb (12.0-15.0) g/dL Hct (37.2-46.3) % RDW (11.5-14.5) % NRBC/100 WBC Diff (0.00-0.01) X 10*3/uL Acanthocytes (Spur) (None Seen) APTT (22.0-30.0) sec POC Glucose (mg/dL) 218 H 196 H 196 H (70-110) mg/dL Assessment and Plan Assessment: 1. Left lower extremity deep vein thrombosis/post thrombotic syndrome 2. History of multiple myeloma Plan: 1. Continue current treatment with oral anticoagulation 2. Continue with knee-high compression stocking 3. Elevate left lower extremity 4. There is no need for any vascular surgical intervention Thank you for this consultation, patient is cleared from vascular surgery for discharge. We will sign off at this time. Follow-up in 1 to 2 weeks. The impression and plan of care has been dictated as directed. I performed a history and examination of this patient, discussed the same with the dictator. I agree with the dictator's note ,documented as a scribe. Any additional findings or plans will be noted.
[2024-12-21] MEDS: LENALIDOMIDE 15 MG PO SCH (09:17)
[2024-12-21 11:12] LABS: Anisocytosis Slight; Basophils % (A) 0 %; Eosinophils % (A) 1 %; HCT 26.2 % (34.0-46.0); HGB 8.3 gm/dL (11.4-16.0); Hypochromasia Slight; Lymphocytes # (A) 0.3 k/uL (1.0-4.8); Lymphocytes % (A) 4 %; MCH 30.4 pg (25.0-35.0); MCHC 31.6 g/dL (31.0-37.0); Macrocytosis Slight; Mean Platelet Volume 8.6; Monocytes # (A) 0.3 k/uL (0-1.0); Monocytes % (A) 4 %; Neutrophils # (A) 7.3 k/uL (1.3-7.7); Neutrophils % (A) 90 %; Platelet Count 218 k/uL (150-450); RBC 2.73 m/uL (3.80-5.40); RDW 17.8 % (11.5-15.5); WBC 8.1 k/uL (3.8-10.6)
[2024-12-21 11:25] LABS: ALT 27 U/L (4-34); AST 19 U/L (14-36); African American GFR (CKD) 67 (>60 ml/min/1.73 sqM); Albumin 2.8 g/dL (3.5-5.0); Alkaline Phosphatase 91 U/L (38-126); Anion Gap 9 mmol/L; Blood Urea Nitrogen 26 mg/dL (7-17); Calcium 9.1 mg/dL (8.4-10.2); Carbon Dioxide 19 mmol/L (22-30); Chloride 99 mmol/L (98-107); Globulin 2.9 g/dL; Glucose 237 mg/dL (74-99); Non-African American GFR(CKD) 58 (>60 ml/min/1.73 sqM); Potassium 4.2 mmol/L (3.5-5.1); Sodium 127 mmol/L (137-145); Total Bilirubin 0.7 mg/dL (0.2-1.3); Total Protein 5.7 g/dL (6.3-8.2)
[2024-12-21 12:04] LABS: Glucose,Whole Blood 307 mg/dL (70-110)
[2024-12-21] MEDS: LACTATED RINGERS 1,000 ML IV SCH (13:03)
--- NOTE | 2024-12-21 13:11 | P.PN ---
Subjective Progress Note Date: 12/21/24 December 21, 2024: Patient is reevaluated for her acute DVT, pressure ulcer/radiation burn to the right buttock, hyponatremia, and medical debility. She has a history of multiple myeloma and recently had treatment for this. Most recently she developed an acute DVT and was admitted for further treatment. She currently is on apixaban for treatment of this. She has silver to her buttock radiation tripathi/pressure ulcer. Her son is at bedside reports some mild confusion. Sodium today is 127. Other vitals remain normal. She is afebrile. Other laboratory studies show her hemoglobin 8.3. She is a known diabetic. Protein and albumin are suppressed due to her poor appetite. Objective - Vital Signs Vital signs: Vital Signs Temp 97.4 F L 12/21/24 07:00 Pulse 67 12/21/24 07:00 Resp 15 12/21/24 07:00 BP 122/67 12/21/24 07:00 Pulse Ox 96 12/21/24 07:00 FiO2 Intake & Output 12/20/24 12/21/24 12/21/24 18:59 06:59 18:59 Intake Total 91.160 Output Total 200 50 Balance -108.840 -50 Intake: Intake, IV Titration 91.160 Amount Heparin Sod,Pork in 0.45% 91.160 NaCl 25,000 unit In 0.45 % NaCl 1 250ml.bag @ 18 UNITS/KG/HR 11.839 mls/hr IV .Q21H7M [facility] OF [facility] Rx#: [id number] Output: Urine 200 50 Other: Voiding Method External Catheter External Catheter # Voids 2 1 # Bowel Movements 1 - Exam General: Elderly female, with some gait dysfunction, needing the aide to help Neck: The neck is supple, there is no thyromegaly, lymphadenopathy, tenderness or JVD. Cardiovascular: S1S2 is normal, There is a regular rate and rhythm. No murmur, rub or gallop is appreciated. Respiratory: Lungs are clear to auscultation bilaterally, respirations are non-labored, breath sounds are equal. Gastrointestinal: Soft, non-distended, non-tender abdomen without masses or org anomegaly noted. There is no rebound or guarding present. Bowel sounds are unremarkable. Musculoskeletal: Normal ROM, no tenderness, There is no pedal edema. There is no calf tenderness or swelling. No cords were appreciated. Neurological: CN II-XII intact, there are no obvious motor or sensory deficits. Coordination appears grossly intact. Speech is normal. Skin: Wound to the right buttock measuring approximately 2 x 1 x 0.1 cm consistent with pressure ulcer and/or radiation necrosis.. - Labs CBC & Chem 7: 12/21/24 10:41 12/21/24 10:41 Labs: Abnormal Lab Results - Last 24 Hours (Table) 12/20/24 12/20/24 12/21/24 Range/Units 17:13 20:29 06:17 RBC (3.80-5.40) m/uL Hgb (11.4-16.0) gm/dL Hct (34.0-46.0) % RDW (11.5-15.5) % Lymphocytes # (1.0-4.8) k/uL Sodium (137-145) mmol/L Carbon Dioxide (22-30) mmol/L BUN (7-17) mg/dL Glucose (74-99) mg/dL POC Glucose (mg/dL) 218 H 196 H 196 H (70-110) mg/dL Total Protein (6.3-8.2) g/dL Albumin (3.5-5.0) g/dL 12/21/24 12/21/24 12/21/24 Range/Units 10:41 10:41 12:03 RBC 2.73 L (3.80-5.40) m/uL Hgb 8.3 L (11.4-16.0) gm/dL Hct 26.2 L (34.0-46.0) % RDW 17.8 H (11.5-15.5) % Lymphocytes # 0.3 L (1.0-4.8) k/uL Sodium 127 L (137-145) mmol/L Carbon Dioxide 19 L (22-30) mmol/L BUN 26 H (7-17) mg/dL Glucose 237 H (74-99) mg/dL POC Glucose (mg/dL) 307 H (70-110) mg/dL Total Protein 5.7 L (6.3-8.2) g/dL Albumin 2.8 L (3.5-5.0) g/dL Assessment and Plan (1) Normochromic anemia Current Visit: Yes Status: Acute Code(s): D64.9 - ANEMIA, UNSPECIFIED SNOMED Code(s): 76401635 (2) H/O therapeutic radiation Current Visit: Yes Status: Acute Code(s): Z92.3 - PERSONAL HISTORY OF IRRADIATION SNOMED Code(s): 751869960 (3) Multiple myeloma Current Visit: Yes Status: Acute Code(s): C90.00 - MULTIPLE MYELOMA NOT HAVING ACHIEVED REMISSION SNOMED Code(s): 479541740 (4) Deep vein thrombosis (DVT) of lower extremity Current Visit: Yes Status: Acute Code(s): I82.409 - ACUTE EMBOLISM AND THOMBOS UNSP DEEP VN UNSP LOWER EXTREMITY SNOMED Code(s): 740012429 (5) Hyponatremia Current Visit: Yes Status: Acute Code(s): E87.1 - HYPO-OSMOLALITY AND HYPONATREMIA SNOMED Code(s): 99920951 (6) Multiple myeloma Current Visit: Yes Status: Acute Code(s): C90.00 - MULTIPLE MYELOMA NOT H AVING ACHIEVED REMISSION SNOMED Code(s): 957163906 (7) H/O four vessel coronary artery bypass graft Current Visit: No Status: Acute Code(s): Z95.1 - PRESENCE OF AORTOCORONARY B YPASS GRAFT SNOMED Code(s): 316905988 (8) Hypertension Current Visit: No Status: Acute Code(s): I10 - ESSENTIAL (PRIMARY) HYPERTENSION SNOMED Code(s): 76251759 (9) Type 2 diabetes mellitus Current Visit: No Status: Acute Code(s): E11.9 - TYPE 2 DIABETES MELLITUS WITHOUT COMPLICATIONS SNOMED Code(s): 72848101 (10) Protein-calorie malnutrition, mild Current Visit: Yes Status: Acute Code(s): E44.1 - MILD PROTEIN-CALORIE MALNUTRITION SNOMED Code(s): 591254559 (11) Gait abnormality Current Visit: Yes Status: Acute Code(s): R26.9 - UNSPECIFIED ABNORMALITIES OF GAIT AND MOBILITY SNOMED Code(s): 99735364 Plan: Discontinue D5 for 5. KVO lactated Ringer's, repeat labs in a.m., physical therapy to evaluate, Santyl with bordered foam daily to her buttocks and offloading. S vascular surgery indicates no surgical options and hematology oncology have seen her and cleared her as well. Will repeat her labs in a.m. to reevaluate for ECF versus home with family in the next 24 hours
[2024-12-21] MEDS ORDERED: NON FORMULARY DRUG (Dulaglutide [Trulicity] 0.75 MG/0.5 ML Each) SQ SCH (13:35)
[2024-12-21] MEDS: COLLAGENASE 250 UNIT/GM OINTMENT 30 GM TUBE TOPICAL SCH (16:09)
--- NOTE | 2024-12-21 16:24 | P.CONS ---
History of Present Illness - Reason for Consult Consult date: 12/21/24 DVT, MM Requesting physician: Jarett Gomez Jr - Chief Complaint LLE swelling - History of Present Illness Please see medical consult dated 12/17/2024. There have been no changes in pt myeloma, she has not resumed treatment. She has follow-up appointments. She is readmitted for worsening swelling in the LLE, extensive DVT diagnosed in the leg 4 days ago. The Doppler report reads positive for DVT involving the left external iliac, common femoral, femoral and popliteal veins. Additional thromboses noted in the proximal calf veins. She states today that the swelling in her leg is significantly improved after the application of a compression sock. She has been resumed on Eliquis. Patient is otherwise doing well. 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 Mother Additional Family Medical History / Comment(s): from "enlarged heart" at 87 years old Brother(s) Family Medical History: Coronary Artery Disease (CAD) Additional Family Medical History / Comment(s): Multiple stents placed Son(s) Family Medical History: CVA/TIA Additional Family Medical History / Comment(s): from stroke at 41 years old Medications and Allergies Home Medications Medication Instructions Recorded Confirmed Type Aspirin EC [Ecotrin Low Dose] 81 mg PO HS #30 tab 11/01/20 12/19/24 Rx Levothyroxine Sodium [Synthroid] 112 mcg PO AC-BRKFST #30 tab 11/01/20 12/19/24 Rx Dulaglutide [Trulicity] 0.75 mg SQ MO 11/09/24 12/19/24 History dexAMETHasone [Decadron] 20 mg PO MO 11/09/24 12/19/24 History traMADol HCL 25 mg PO Q8H PRN 11/09/24 12/19/24 History Acyclovir [Zovirax] 400 mg PO BID 12/16/24 12/19/24 History Bortezomib 1 dose IJ WE 12/16/24 12/19/24 History Fluconazole [Diflucan] 100 mg PO DAILY 12/16/24 12/19/24 History Lenalidomide 15 mg PO DIRECTED 12/16/24 12/19/24 History Ondansetron Odt [Zofran ODT] 4 mg PO Q8HR PRN 12/16/24 12/19/24 History Pantoprazole [Protonix] 40 mg PO DAILY #30 tab 12/16/24 12/19/24 Rx Sulfamethox-Tmp 800-160Mg [Bactrim 1 tab PO MOWEFR 12/16/24 12/19/24 History DS 800-160 mg] Valsartan [Diovan] 80 mg PO HS 12/16/24 12/19/24 History atenoloL [Tenormin] 25 mg PO HS 12/16/24 12/19/24 History Apixaban [Eliquis Starter Pack See Taper PO DIRECTED 12/19/24 12/19/24 History (for VTE)] Allergies Allergy/AdvReac Type Severity Reaction Status Date / Time epinephrine AdvReac Intermediate Rapid Verified 12/19/24 19:10 Heart Rate Physical Exam Vitals: Vital Signs Temp Pulse Resp BP BP Pulse Ox 12/21/24 14:31 97.4 F L 63 14 115/41 99 12/21/24 07:00 97.4 F L 67 15 122/67 96 12/21/24 02:24 98.2 F 71 14 114/73 100 12/20/24 18:42 98.1 F 74 15 118/70 97 Intake and Output 12/21/24 12/21/24 12/21/24 06:59 14:59 22:59 Output Total 50 Balance -50 Output: Urine 50 Other: Voiding Method External Catheter External Catheter # Voids 2 1 # Bowel Movements 1 - Constitutional General appearance: average body habitus, cooperative, no acute distress - EENT Eyes: anicteric sclerae, EOMI ENT: hearing grossly normal - Respiratory Respirations even and unlabored at rest - Cardiovascular Skin warm, well-perfused leg Peripheral Edema: right: None, left: 1+ - Integumentary Integumentary: normal - Neurologic Neurologic: CNII-XII intact - Musculoskeletal Musculoskeletal: generalized weakness, strength equal bilaterally - Psychiatric Psychiatric: A&O x's 3, appropriate affect, intact judgment & insight Results CBC & Chem 7: 12/21/24 10:41 12/21/24 10:41 Labs: Abnormal Lab Results - Last 24 Hours (Table) 12/20/24 12/20/24 12/21/24 Range/Units 17:13 20:29 06:17 RBC (3.80-5.40) m/uL Hgb (11.4-16.0) gm/dL Hct (34.0-46.0) % RDW (11.5-15.5) % Lymphocytes # (1.0-4.8) k/uL Sodium (137-145) mmol/L Carbon Dioxide (22-30) mmol/L BUN (7-17) mg/dL Glucose (74-99) mg/dL POC Glucose (mg/dL) 218 H 196 H 196 H (70-110) mg/dL Total Protein (6.3-8.2) g/dL Albumin (3.5-5.0) g/dL 12/21/24 12/21/24 12/21/24 Range/Units 10:41 10:41 12:03 RBC 2.73 L (3.80-5.40) m/uL Hgb 8.3 L (11.4-16.0) gm/dL Hct 26.2 L (34.0-46.0) % RDW 17.8 H (11.5-15.5) % Lymphocytes # 0.3 L (1.0-4.8) k/uL Sodium 127 L (137-145) mmol/L Carbon Dioxide 19 L (22-30) mmol/L BUN 26 H (7-17) mg/dL Glucose 237 H (74-99) mg/dL POC Glucose (mg/dL) 307 H (70-110) mg/dL Total Protein 5.7 L (6.3-8.2) g/dL Albumin 2.8 L (3.5-5.0) g/dL Venous US: report reviewed (Left lower extremity Doppler performed on Saturday is reporting additional thrombus in the calf?) Assessment and Plan (1) Deep vein thrombosis (DVT) of lower extremity Current Visit: Yes Status: Acute Priority: Medium Code(s): I82.409 - ACUTE EMBOLISM AND THOMBOS UNSP DEEP VN UNSP LOWER EXTREMITY SNOMED Code(s): 986053353 (2) Multiple myeloma Current Visit: Yes Status: Acute Priority: Medium Code(s): C90.00 - MULTIPLE MYELOMA NOT HAVING ACHIEVED REMISSION SNOMED Code(s): 199328795 Plan: Recent DVT -Likely secondary to malignancy and treatment of the same (Revlimid, steroids) -Patient admitted with worsening swelling of the left lower extremity. Repeat Doppler performed. *Clarified with the ultrasound department, the "additional" clot reported in the calf veins was there on ultrasound done on the , it was not commented on by the reading radiologist. There is not a propagation of the clot or change. Okay to continue on Eliquis. Multiple myeloma -Continue with plans for treatment scheduled for 12/24 at 1130.
[2024-12-21 17:13] LABS: Glucose,Whole Blood 256 mg/dL (70-110)
[2024-12-21] MEDS: APIXABAN 5 MG TAB PO SCH (17:31)
[2024-12-21 19:54] LABS: Glucose,Whole Blood 259 mg/dL (70-110)
[2024-12-22 05:21] LABS: Glucose,Whole Blood 229 mg/dL (70-110)
--- NOTE | 2024-12-22 08:25 | P.PN ---
Subjective Progress Note Date: 12/22/24 Principal diagnosis: Left lower extremity DVT Patient is seen and examined today as a follow-up. Pain in left lower extremity improved. Swelling continues to improve with elevation and compression stocking. She denies any shortness of breath or chest pain. Objective - Vital Signs Vital signs: Vital Signs Temp 98.3 F 12/22/24 02:00 Pulse 64 12/22/24 02:00 Resp 17 12/22/24 02:00 BP 149/70 12/22/24 02:00 Pulse Ox 99 12/22/24 02:00 FiO2 Intake & Output 12/21/24 12/22/24 12/22/24 18:59 06:59 18:59 Output Total 50 Balance -50 Output: Urine 50 Other: Voiding Method External Catheter Bedpan Diaper # Voids 1 2 # Bowel Movements 1 1 - Exam General appearance: The patient is alert, oriented, appears in no acute distress. HET: Head is normocephalic and atraumatic. Neck: Supple. Lungs: Equal expansion, normal respiratory effort. Abdomen: Soft, nontender, nondistended. Extremities: Normal skin color and turgor. Left lower extremity with SOPHIA hose compression stocking in place to with improved swelling. Calf and thigh are soft. Palpable DP pulse. Neurological: No focal deficits. Alert and oriented. - Labs CBC & Chem 7: 12/21/24 10:41 12/21/24 10:41 Labs: Abnormal Lab Results - Last 24 Hours (Table) 12/21/24 12/21/24 12/21/24 Range/Units 10:41 10:41 12:03 RBC 2.73 L (3.80-5.40) m/uL Hgb 8.3 L (11.4-16.0) gm/dL Hct 26.2 L (34.0-46.0) % RDW 17.8 H (11.5-15.5) % Lymphocytes # 0.3 L (1.0-4.8) k/uL Sodium 127 L (137-145) mmol/L Carbon Dioxide 19 L (22-30) mmol/L BUN 26 H (7-17) mg/dL Glucose 237 H (74-99) mg/dL POC Glucose (mg/dL) 307 H (70-110) mg/dL Total Protein 5.7 L (6.3-8.2) g/dL Albumin 2.8 L (3.5-5.0) g/dL 12/21/24 12/21/24 12/22/24 Range/Units 17:12 19:52 05:18 RBC (3.80-5.40) m/uL Hgb (11.4-16.0) gm/dL Hct (34.0-46.0) % RDW (11.5-15.5) % Lymphocytes # (1.0-4.8) k/uL Sodium (137-145) mmol/L Carbon Dioxide (22-30) mmol/L BUN (7-17) mg/dL Glucose (74-99) mg/dL POC Glucose (mg/dL) 256 H 259 H 229 H (70-110) mg/dL Total Protein (6.3-8.2) g/dL Albumin (3.5-5.0) g/dL Assessment and Plan Assessment: 1. Left lower extremity deep vein thrombosis/post thrombotic syndrome 2. History of multiple myeloma Plan: 1. Continue current treatment with oral anticoagulation per recommendations from oncology 2. Continue with knee-high compression stocking 3. Elevate left lower extremity 4. There is no need for any vascular surgical intervention Thank you for this consultation, patient is cleared from vascular surgery for discharge. We will sign off at this time. Follow-up in 1 to 2 weeks. The impression and plan of care has been dictated as directed. Dr. Annalee Xavier performed a history and examination of this patient, discussed the same with the dictator. I agree with the dictator's note ,documented as a scribe. Any additional findings or plans will be noted.
[2024-12-22 08:30] VITALS: BP 137/55; PULSE 56; RESP 18; TEMP 97.3
[2024-12-22 08:54] LABS: Anisocytosis Slight; HCT 23.5 % (34.0-46.0); HGB 7.6 gm/dL (11.4-16.0); MCH 30.1 pg (25.0-35.0); MCHC 32.3 g/dL (31.0-37.0); MCV 93.3 fL (80.0-100.0); Mean Platelet Volume 8.5; Platelet Count 197 k/uL (150-450); RBC 2.52 m/uL (3.80-5.40); RDW 17.5 % (11.5-15.5); WBC 8.6 k/uL (3.8-10.6)
[2024-12-22 09:19] LABS: African American GFR (CKD) 79 (>60 ml/min/1.73 sqM); Anion Gap 8 mmol/L; Blood Urea Nitrogen 27 mg/dL (7-17); Calcium 9.2 mg/dL (8.4-10.2); Carbon Dioxide 17 mmol/L (22-30); Chloride 104 mmol/L (98-107); Glucose 185 mg/dL (74-99); Non-African American GFR(CKD) 69 (>60 ml/min/1.73 sqM); Potassium 4.1 mmol/L (3.5-5.1); Sodium 129 mmol/L (137-145)
[2024-12-22] MEDS: SODIUM BICARBONATE TAB 650 MG TAB PO SCH (12:20)
--- NOTE | 2024-12-22 15:33 | P.DS ---
Providers Date of admission: 12/19/24 19:19 Expected date of discharge: 12/22/24 Attending physician: Jarett Gomez Consults: 12/19/24 19:19 Consult Physician Routine Consulting Provider: Frank Mcallister Consult Reason/Comments: DVT Do you want consulting provider notified?: Yes 12/20/24 13:18 Consult Physician Routine Consulting Provider: Himanshu Waggoner Consult Reason/Comments: DVT, known Do you want consulting provider notified?: Yes Primary care physician: [facility] Course: Final Diagnoses: (1) Normochromic anemia Current Visit: Yes Status: Acute Code(s): D64.9 - ANEMIA, UNSPECIFIED SNOMED Code(s): 45179291 (2) H/O therapeutic radiation Current Visit: Yes Status: Acute Code(s): Z92.3 - PERSONAL HISTORY OF IRRADIATION SNOMED Code(s): 772034507 (3) Multiple myeloma Current Visit: Yes Status: Acute Code(s): C90.00 - MULTIPLE MYELOMA NOT HAVING ACHIEVED REMISSION SNOMED Code(s): 916554171 (4) Deep vein thrombosis (DVT) of lower extremity Current Visit: Yes Status: Acute Code(s): I82.409 - ACUTE EMBOLISM AND THOMBOS UNSP DEEP VN UNSP LOWER EXTREMITY SNOMED Code(s): 020088016 (5) Hyponatremia Current Visit: Yes Status: Acute Code(s): E87.1 - HYPO-OSMOLALITY AND HYPONATREMIA SNOMED Code(s): 69511664 (6) Multiple myeloma Current Visit: Yes Status: Acute Code(s): C90.00 - MULTIPLE MYELOMA NOT HAVING ACHIEVED REMISSION SNOMED Code(s): 659735923 (7) H/O four vessel coronary artery bypass graft Current Visit: No Status: Acute Code(s): Z95.1 - PRESENCE OF AORTOCORONARY BYPASS GRAFT SNOMED Code(s): 767653616 (8) Hypertension Current Visit: No Status: Acute Code(s): I10 - ESSENTIAL (PRIMARY) HYPERTENSION SNOMED Code(s): 22209800 (9) Type 2 diabetes mellitus Current Visit: No Status: Acute Code(s): E11.9 - TYPE 2 DIABETES MELLITUS WITHOUT COMPLICATIONS SNOMED Code(s): 69617019 (10) Protein-calorie malnutrition, mild Current Visit: Yes Status: Acute Code(s): E44.1 - MILD PROTEIN-CALORIE MALNUTRITION SNOMED Code(s): 413673918 (11) Gait abnormality Current Visit: Yes Status: Acute Code(s): R26.9 - UNSPECIFIED ABNORMALITIES OF GAIT AND MOBILITY SNOMED Code(s): 78793835 (12) 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 Reevaluated by both vascular and hematology. Maintain elevation of effected extremity wearing knee-high compression stocking. No vascular surgical intervention recommended. Hematology recommends patient restart loading dose-starter pack reordered. Hemoglobin alternating daily from 7.6-8.3. Sodium 129, bicarb 17, BUN 27, creatinine 0.83. Recheck CBC, BMP in 3 days. Patient has been cleared by consults for discharge. Patient will be discharged home today in a stable condition with guarded prognosis. Patient Condition at Discharge: Stable Plan - Discharge Summary Discharge Rx Participant: No New Discharge Prescriptions: New Apixaban [Eliquis Starter Pack (for VTE)] 5 - 10 mg PO DIRECTED 30 Days #1 each Collagenase [Santyl Ointment] 1 applic TOPICAL DAILY #90 g Sodium Bicarbonate Tab 650 mg PO BID tab Continue Aspirin EC [Ecotrin Low Dose] 81 mg PO HS #30 tab Levothyroxine Sodium [Synthroid] 112 mcg PO AC-BRKFST #30 tab traMADol HCL 25 mg PO Q8H PRN PRN Reason: Pain atenoloL [Tenormin] 25 mg PO HS Ondansetron Odt [Zofran ODT] 4 mg PO Q8HR PRN PRN Reason: Nausea Fluconazole [Diflucan] 100 mg PO DAILY Lenalidomide 15 mg PO DIRECTED Pantoprazole [Protonix] 40 mg PO DAILY #30 tab dexAMETHasone [Decadron] 20 mg PO MO Dulaglutide [Trulicity] 0.75 mg SQ MO Valsartan [Diovan] 80 mg PO HS Sulfamethox-Tmp 800-160Mg [Bactrim DS 800-160 mg] 1 tab PO MOWEFR Acyclovir [Zovirax] 400 mg PO BID Bortezomib 1 dose IJ WE Discontinued Apixaban [Eliquis Starter Pack (for VTE)] See Taper PO DIRECTED Discharge Medication List Aspirin EC [Ecotrin Low Dose] 81 mg PO HS #30 tab 11/01/20 [Rx] Levothyroxine Sodium [Synthroid] 112 mcg PO AC-BRKFST #30 tab 11/01/20 [Rx] Dulaglutide [Trulicity] 0.75 mg SQ MO 11/09/24 [History] dexAMETHasone [Decadron] 20 mg PO MO 11/09/24 [History] traMADol HCL 25 mg PO Q8H PRN 11/09/24 [History] Acyclovir [Zovirax] 400 mg PO BID 12/16/24 [History] Bortezomib 1 dose IJ WE 12/16/24 [History] Fluconazole [Diflucan] 100 mg PO DAILY 12/16/24 [History] Lenalidomide 15 mg PO DIRECTED 12/16/24 [History] Ondansetron Odt [Zofran ODT] 4 mg PO Q8HR PRN 12/16/24 [History] Pantoprazole [Protonix] 40 mg PO DAILY #30 tab 12/16/24 [Rx] Sulfamethox-Tmp 800-160Mg [Bactrim DS 800-160 mg] 1 tab PO MOWEFR 12/16/24 [History] Valsartan [Diovan] 80 mg PO HS 12/16/24 [History] atenoloL [Tenormin] 25 mg PO HS 12/16/24 [History] Apixaban [Eliquis Starter Pack (for VTE)] 5 - 10 mg PO DIRECTED 30 Days #1 each 12/22/24 [Rx] Collagenase [Santyl Ointment] 1 applic TOPICAL DAILY #90 g 12/22/24 [Rx] Sodium Bicarbonate Tab 650 mg PO BID tab 12/22/24 [Rx] Follow up Appointment(s)/Referral(s): [facility], [NON-STAFF] - As Needed Jarett Gomez Jr, DO [Primary Care Provider] - 3 Days Frank Mcallister DO [Doctor of Osteopathic Medicine] - 01/07/25 10:30 am Ambulatory/Diagnostic Orders: Basic Metabolic Panel [LAB.AMB] Time Frame: 3 Days, Location: None Selected Patient Instructions/Handouts: Deep Vein Thrombosis (DC) Discharge Disposition: HOME WITH HOME HEALTH SERVICES
--- NOTE | 2024-12-22 15:39 | P.PN ---
Subjective Progress Note Date: 12/22/24 Principal diagnosis: Leg swelling In f/u pt stated she is doing well, only mild pedal edema on the left today, compression sock is helping. She feels well and is ready to go home. Objective - Vital Signs Vital signs: Vital Signs Temp 97.3 F L 12/22/24 07:40 Pulse 56 L 12/22/24 07:40 Resp 18 12/22/24 07:40 BP 137/55 12/22/24 07:40 Pulse Ox 98 12/22/24 07:40 FiO2 Intake & Output 12/21/24 12/22/24 12/22/24 18:59 06:59 18:59 Output Total 50 Balance -50 Output: Urine 50 Other: Voiding Method External Catheter Bedpan Diaper # Voids 1 2 2 # Bowel Movements 1 1 2 - Constitutional General appearance: Present: average body habitus, cooperative, no acute distress - EENT Eyes: Present: anicteric sclerae, EOMI ENT: Present: hearing grossly normal - Respiratory Details: resp unlabored at rest - Cardiovascular Details: skin warm, well perfused - Peripheral edema leg Peripheral Edema: right: None, left: 1+ - Integumentary Integumentary: Present: normal - Neurologic Neurologic: Present: CNII-XII intact - Psychiatric Psychiatric: Present: A&O x's 3, appropriate affect, intact judgment & insight - Labs CBC & Chem 7: 12/22/24 08:32 12/22/24 08:32 Labs: Abnormal Lab Results - Last 24 Hours (Table) 12/21/24 12/21/24 12/22/24 Range/Units 17:12 19:52 05:18 RBC (3.80-5.40) m/uL Hgb (11.4-16.0) gm/dL Hct (34.0-46.0) % RDW (11.5-15.5) % Sodium (137-145) mmol/L Carbon Dioxide (22-30) mmol/L BUN (7-17) mg/dL Glucose (74-99) mg/dL POC Glucose (mg/dL) 256 H 259 H 229 H (70-110) mg/dL 12/22/24 12/22/24 Range/Units 08:32 08:32 RBC 2.52 L (3.80-5.40) m/uL Hgb 7.6 L (11.4-16.0) gm/dL Hct 23.5 L (34.0-46.0) % RDW 17.5 H (11.5-15.5) % Sodium 129 L (137-145) mmol/L Carbon Dioxide 17 L (22-30) mmol/L BUN 27 H (7-17) mg/dL Glucose 185 H (74-99) mg/dL POC Glucose (mg/dL) (70-110) mg/dL Assessment and Plan (1) Deep vein thrombosis (DVT) of lower extremity Status: Acute Priority: Medium Code(s): I82.409 - ACUTE EMBOLISM AND THOMBOS UNSP DEEP VN UNSP LOWER EXTREMITY SNOMED Code(s): 826136118 (2) Multiple myeloma Status: Acute Priority: Medium Code(s): C90.00 - MULTIPLE MYELOMA NOT HAVING ACHIEVED REMISSION SNOMED Code(s): 583609165 Plan: Recent DVT -Likely secondary to malignancy and treatment of the same (Revlimid, steroids) -Patient admitted with worsening swelling of the left lower extremity. Repeat Doppler performed. *Clarified with the ultrasound department, the "additional" clot reported in the calf veins was there on ultrasound done on the 4th, it was not commented on by the reading radiologist. There is not a propagation of the clot or change. Okay to continue on Eliquis. Reviewed with pt that she is to restart loading dose, take for a total of 14 doses, then she will transition to 5mg BID. She verbalized understanding, reviewed with RN who will review again with pt Multiple myeloma -Continue with plans for treatment scheduled for 12/24 at 1130. [facility] will call pt tomorrow to remind her of appt
[2024-12-23] MEDS ORDERED: BORTEZOMIB 3.5 MG VIAL SQ SCH (13:35)
[2024-12-28] MEDS ORDERED: APIXABAN 5 MG TAB PO SCH (21:00)
== END 2024-12-22 13:07 | disposition home health service (06) ==
LOC: EC 17:29 → 6NMEDSUR 19:19
PROVIDERS: ADMIT Family Medicine; ATTEND Family Medicine
DX: I82.422 Acute embolism and thrombosis of left iliac vein (principal); I82.412 Acute embolism and thrombosis of left femoral vein; I82.432 Acute embolism and thrombosis of left popliteal vein; I82.492 Acute embolism and thrombosis of other specified deep vein of left lower extremity; C90.00 Multiple myeloma not having achieved remission; E44.1 Mild protein-calorie malnutrition; E87.1 Hypo-osmolality and hyponatremia; L89.323 Pressure ulcer of left buttock, stage 3; T21.05XA Burn of unspecified degree of buttock, initial encounter; Y84.2 Radiological procedure and radiotherapy as the cause of abnormal reaction of the patient, or of later complication, without mention of misadventure at the time of the procedure; Z91.199 Patient's noncompliance with other medical treatment and regimen due to unspecified reason; I87.002 Postthrombotic syndrome without complications of left lower extremity; I25.10 Atherosclerotic heart disease of native coronary artery without angina pectoris; E11.59 Type 2 diabetes mellitus with other circulatory complications; I10 Essential (primary) hypertension; R53.81 Other malaise; D64.9 Anemia, unspecified; R26.9 Unspecified abnormalities of gait and mobility; Z79.01 Long term (current) use of anticoagulants; Z79.82 Long term (current) use of aspirin; Z79.85 Long-term (current) use of injectable non-insulin antidiabetic drugs; Z79.52 Long term (current) use of systemic steroids; Z79.890 Hormone replacement therapy; Z79.2 Long term (current) use of antibiotics; Z79.899 Other long term (current) drug therapy; Z88.8 Allergy status to other drugs, medicaments and biological substances; Z95.1 Presence of aortocoronary bypass graft
CPT/HCPCS: 96376; 96361 ×2; 96365; 96366 ×2; 99284; 36415; 97161; 80053 ×2; 80048; 85025 ×3; 85027; 85610; 85730 ×2; 93971; G0378 ×4; J8540; J1644 ×2

== ENCOUNTER 2024-12-24 15:32 | Inpatient (IN) | payer MEDICARE ==
[2024-12-24] MEDS: LACTATED RINGERS 1,000 ML IV SCH (17:01)
--- NOTE | 2024-12-24 18:01 | ED ---
General Adult HPI - General Chief complaint: Recheck/Abnormal Lab/Rx Stated complaint: ABN CT SCAN-ABD Time Seen by Provider: 12/24/24 15:40 Source: patient Mode of arrival: wheelchair Limitations: no limitations - History of Present Illness Initial comments: 79-year-old female past medical history of multiple myeloma on chemotherapy, DVT on Eliquis who presents to the emergency department with abnormal CT. Patient reports that she was hospitalized last week for leg swelling and found that the patient had a DVT. She reports was having abdominal pain during this time and there was concern that the patient needed to move her bowels. She was released from the hospital and followed up with her oncologist today for her chemotherapy injection. She mentioned to him that she was still having abdominal pain. He sent her for an x-ray of her abdomen which showed free air. This was followed by a CT of her abdomen which demonstrated free air. She was told to come to the emergency department. She admits to minimal pain at this time. No pain upon p alpation, only with walking. No nausea or vomiting. No fevers. She did get her chemo injection today and takes oral daily chemo. She has been compliant with her anticoagulation due to her recent DVT. She admits to have history of diverticulosis. No other alleviating, precipitating or modifying factors - Related Data Home Medications Medication Instructions Recorded Confirmed Dulaglutide [Trulicity] 0.75 mg SQ MO 11/09/24 12/24/24 dexAMETHasone [Decadron] 20 mg PO MO 11/09/24 12/24/24 traMADol HCL 25 mg PO Q8H PRN 11/09/24 12/24/24 Acyclovir [Zovirax] 400 mg PO BID 12/16/24 12/24/24 Bortezomib 1 dose INJ WE 12/16/24 12/24/24 Fluconazole [Diflucan] 100 mg PO DAILY 12/16/24 12/24/24 Lenalidomide 15 mg PO DIRECTED 12/16/24 12/24/24 Ondansetron Odt [Zofran ODT] 4 mg PO Q8HR PRN 12/16/24 12/24/24 Sulfamethox-Tmp 800-160Mg [Bactrim 1 tab PO MOWEFR 12/16/24 12/24/24 DS 800-160 mg] Valsartan [Diovan] 80 mg PO HS 12/16/24 12/24/24 atenoloL [Tenormin] 25 mg PO HS 12/16/24 12/24/24 Apixaban [Eliquis Starter Pack See Taper PO DIRECTED 12/24/24 12/24/24 (for VTE)] Collagenase [Santyl Ointment] 1 applic TOPICAL DIRECTED 12/24/24 12/24/24 Sodium Bicarbonate Tab 650 mg PO DIRECTED 12/24/24 12/24/24 Previous Rx's Medication Instructions Recorded Aspirin EC [Ecotrin Low Dose] 81 mg PO HS #30 tab 11/01/20 Levothyroxine Sodium [Synthroid] 112 mcg PO AC-BRKFST #30 tab 11/01/20 Pantoprazole [Protonix] 40 mg PO DAILY #30 tab 12/16/24 Acetaminophen Tab [Tylenol] 650 mg PO Q6HR PRN tab 12/25/24 INSULIN LISPRO (HumaLOG) [HumaLOG] 0 unit SQ ACHS each 12/25/24 Piperacillin-Tazobactam [Zosyn] 3.375 gm IVPB Q8H each 12/25/24 atenoloL [Tenormin] 25 mg PO HS tab 12/25/24 Allergies Allergy/AdvReac Type Severity Reaction Status Date / Time epinephrine AdvReac Intermediate Rapid Verified 12/24/24 18:03 Heart Rate Review of Systems ROS Statement: Those systems with pertinent positive or pertinent negative responses have been documented in the HPI. ROS Other: All systems not noted in ROS Statement are negative. Past Medical History Past Medical History: Coronary Artery Disease (CAD), Cancer, Diabetes Mellitus, Hyperlipidemia, Hypertension, Thyroid Disorder Additional Past Medical History / Comment(s): Chronic neck pain from compressed disks in her neck, cancer back History of Any Multi-Drug Resistant Organisms: None Reported Past Surgical History: Section, Orthopedic Surgery Additional Past Surgical History / Comment(s): Left knee replacement, bypass Past Psychological History: No Psychological Hx Reported Smoking Status: Never smoker Past Alcohol Use History: None Reported Past Drug Use History: None Reported - Past Family History Father Family Medical History: Myocardial Infarction ([place]) Additional Family Medical History / Comment(s): at 70 years old from myocardial infarction-suspected. Mother Additional Family Medical History / Comment(s): from "enlarged heart" at 87 years old Brother(s) Family Medical History: Coronary Artery Disease (CAD) Additional Family Medical History / Comment(s): Multiple stents placed Son(s) Family Medical History: CVA/TIA Additional Family Medical History / Comment(s): from stroke at 41 years old General Exam Limitations: no limitations General appearance: alert, in no apparent distress Head exam: Present: atraumatic, normocephalic, normal inspection Eye exam: Present: normal appearance, PERRL, EOMI. Absent: scleral icterus, conjunctival injection, periorbital swelling ENT exam: Present: normal exam, mucous membranes moist Neck exam: Present: normal inspection. Absent: tenderness, meningismus, lymphadenopathy Respiratory exam: Present: normal lung sounds bilaterally. Absent: respiratory distress, wheezes, rales, rhonchi, stridor Cardiovascular Exam: Present: regular rate, normal rhythm, normal heart sounds. Absent: systolic murmur, diastolic murmur, rubs, gallop, clicks GI/Abdominal exam: Present: soft, tenderness (Only very mild tenderness to palpation), normal bowel sounds. Absent: distended, guarding, rebound, rigid Extremities exam: Present: normal inspection, full ROM, normal capillary refill. Absent: tenderness, pedal edema, joint swelling, calf tenderness Back exam: Present: normal inspection Neurological exam: Present: alert, oriented X3, CN II-XII intact Psychiatric exam: Present: normal affect, normal mood Skin exam: Present: warm, dry, intact, normal color. Absent: rash Course Vital Signs 12/24/24 12/24/24 12/24/24 15:35 16:52 19:00 Temperature 97.5 F L 97.5 F L Pulse Rate 66 61 67 Pulse Rate [ Pulse Oximetery ] Respiratory 18 16 20 Rate Blood Pressure 119/82 108/56 93/55 Blood Pressure [Left Arm] O2 Sat by Pulse 98 100 97 Oximetry 12/24/24 21:06 Temperature 98.4 F Pulse Rate Pulse Rate [ 71 Pulse Oximetery ] Respiratory 17 Rate Blood Pressure Blood Pressure 117/58 [Left Arm] O2 Sat by Pulse 96 Oximetry Medical Decision Making - Medical Decision Making Was pt. sent in by a medical professional or institution (, PA, CASEWORKER INTAKE, urgent care, hospital, or detention...) When possible be specific @ -Patient sent in from her oncology office Did you speak to anyone other than the patient for history (EMS, parent, family, police, friend...)? What history was obtained from this source @ -No Did you review nursing and triage notes (agree or disagree)? Why? @ -I reviewed and agree with nursing and triage notes Were old charts reviewed (outside hosp., previous admission, EMS record, old EKG, old radiological studies, urgent care reports/EKG's, detention records)? Report findings @ -I reviewed the outpatient CT that was performed today Differential Diagnosis (chest pain, altered mental status, abdominal pain women, abdominal pain men, vaginal bleeding, weakness, fever, dyspnea, syncope, headache, dizziness, GI bleed, back pain, seizure, CVA, palpatations, mental health, musculoskeletal)? @ -Differential Abdominal Pain Women: Appendicitis, Cholecystitis, diverticulosis, ischemic bowel, pancreatitis, hepatitis, UTI, gastroenteritis, AAA, incarcerated hernia, bowel obstruction, constipation, inflammatory bowel, hepatitis, peptic ulcer disease, splenic infarction, perforated viscus, vulvitis, ovarian torsion, PID, kidney stone, placenta abruption, this is not meant to be an all-inclusive list EKG interpreted by me (3pts min.). @ -Yes and demonstrates sinus rhythm with a rate of 61. WI interval 167. QRS 138. QTc of 455. No acute ST segment elevations. Left bundle branch block X-rays interpreted by me (1pt min.). @ -None done CT interpreted by me (1pt min.). @ -None done U/S interpreted by me (1pt. min.). @ -None done What testing was considered but not performed or refused? (CT, X-rays, U/S, labs)? Why? @ -None What meds were considered but not given or refused? Why? @ -None Did you discuss the management of the patient with other professionals (kenji polanco i.e. , PA, CASEWORKER [employer], lab, RT, psych nurse, social sciences chair, splicer helper, teacher, money position officer, case work aide)? Give summary @ -Spoke with Dr. Rodriges. He recommended 2 L of fluid, antibiotics and ad mission to the hospital under medicine service. I then spoke with Dr. Park who will admit the patient Was smoking cessation discussed for >3mins.? @ -No Was critical care preformed (if so, how long)? @ -35 minutes for management of pneumoperitoneum Were there social determinants of health that impacted care today? How? (Homelessness, low income, unemployed, alcoholism, drug addiction, frost sportation, low edu. Level, literacy, decrease access to med. care, fci, rehab)? @ -No Was there de-escalation of care discussed even if they declined (Discuss DNR or withdrawal of care, Hospice)? DNR status @ -Yes, patient states that she does not want to have surgery at this time and would like to know what her other options are What co-morbidities impacted this encounter? (DM, HTN, Smoking, COPD, CAD, Cancer, CVA, ARF, Chemo, Hep., AIDS, mental health diagnosis, sleep apnea, morbid obesity)? @ -DVT on Eliquis, multiple myeloma on chemotherapy, diverticulosis Was patient admitted / discharged? Hospital course, mention meds given and route, prescriptions, significant lab abnormalities, going to OR and other pertinent info. @ -Upon arrival patient seen and evaluated in hallway 20. Thorough history and physical exam was performed. IV access was established. Blood cultures were obtained. Patient was initiated on Zosyn. I did speak with Dr. Rodriges. He does not feel that the patient is a candidate for surgery. Informed him that patient is looking for alternative options other than surgery. He recommends medicine admission with surgery and oncology on consult. I did discuss this with the patient and her family. Patient admitted to the floor in stable condition with a very guarded prognosis Undiagnosed new problem with uncertain prognosis? @ -No Drug Therapy requiring intensive monitoring for toxicity (Heparin, Nitro, Insulin, Cardizem)? @ -No Were any procedures done? @ -No Diagnosis/symptom? @ -Acute pneumoperitoneum, ruptured diverticulitis, history of multiple myeloma on chemotherapy, history of DVT on Eliquis Acute, or Chronic, or Acute on Chronic? @ -Acute Uncomplicated (without systemic symptoms) or Complicated (systemic symptoms)? @ -Complicated Side effects of treatment? @ -No Exacerbation, Progression, or Severe Exacerbation? @ -No Poses a threat to life or bodily function? How? (Chest pain, [place], [place], pneumonia, PE, COPD, DKA, ARF, appy, cholecystitis, CVA, Diverticulitis, Homicidal, Suicidal, threat to staff... and all critical care pts) @ -Yes as patient is not a great surgical candidate. Patient is agreeable to this and would like other treatment options other than surgery - Lab Data Result diagrams: 12/28/24 17:23 12/28/24 17:23 Lab Results 12/24/24 12/24/24 12/24/24 Range/Units 16:16 16:16 16:16 WBC 9.9 (3.8-10.6) k/uL RBC 2.68 L (3.80-5.40) m/uL Hgb 8.3 L (11.4-16.0) gm/dL Hct 25.8 L (34.0-46.0) % MCV 96.0 (80.0-100.0) fL MCH 30.9 (25.0-35.0) pg MCHC 32.2 (31.0-37.0) g/dL RDW 18.1 H (11.5-15.5) % Plt Count 305 (150-450) k/uL MPV 10.5 Neutrophils % (Manual) 82 % Band Neuts % (Manual) 6 % Lymphocytes % (Manual) 4 % Monocytes % (Manual) 7 % Metamyelocytes % 1 % Myelocytes % 1 % Neutrophils # (Manual) 8.70 H (1.3-7.7) k/uL Lymphocytes # (Manual) 0.40 L (1.0-4.8) k/uL Monocytes # (Manual) 0.69 (0-1.0) k/uL Metamyelocytes # (Man) 0.10 H (0) k/uL Myelocytes # (Manual) 0.10 H (0) k/uL Nucleated RBCs 0 (0-0) /100 WBC Manual Slide Review Performed Hypochromasia Slight Poikilocytosis (manual Present Anisocytosis Slight Macrocytosis Slight Rouleaux Present Sodium 125 L (137-145) mmol/L Potassium 4.7 (3.5-5.1) mmol/L Chloride 95 L (98-107) mmol/L Carbon Dioxide 14 L (22-30) mmol/L Anion Gap 16 mmol/L BUN 44 H (7-17) mg/dL Creatinine 1.46 H (0.52-1.04) mg/dL Est GFR (CKD-EPI)AfAm 40 (>60 ml/min/1.73 sqM) Est GFR (CKD-EPI)NonAf 35 (>60 ml/min/1.73 sqM) Glucose 311 H (74-99) mg/dL Plasma Lactic Acid Aki 3.0 H* (0.7-2.0) mmol/L Calcium 9.2 (8.4-10.2) mg/dL Magnesium 1.9 (1.6-2.3) mg/dL Total Bilirubin 0.9 (0.2-1.3) mg/dL AST 49 H (14-36) U/L ALT 23 (4-34) U/L Alkaline Phosphatase 84 (38-126) U/L Total Protein 6.5 (6.3-8.2) g/dL Albumin 3.2 L (3.5-5.0) g/dL Disposition Clinical Impression: Abdominal pain, Pneumoperitoneum, Perforated diverticulum Disposition: ADMITTED IP TO THIS [facility] Condition: Stable Is patient prescribed a controlled substance at d/c from ED?: No Time of Disposition: 18:20 Decision to Admit Reason: Admit from EC Decision Date: 12/24/24 Decision Time: 18:20
[2024-12-24] MEDS ORDERED: NALOXONE 0.4 MG/ML 1 ML VIAL IV PRN (18:20)
[2024-12-24] MEDS ORDERED: ACETAMINOPHEN TAB 325 MG TAB PO PRN (18:20)
[2024-12-24] MEDS ORDERED: ONDANSETRON ODT 4 MG TAB PO PRN (18:25)
[2024-12-24] MEDS ORDERED: traMADol 50 MG TAB PO PRN (18:25)
[2024-12-24] MEDS: PIPERACILLIN-TAZOBACTAM 3.375 GM in SODIUM CHLORIDE 0.9% 100 ML IVPB SCH (18:31)
[2024-12-24 19:06] LABS: ALT 23 U/L (4-34); AST 49 U/L (14-36); African American GFR (CKD) 40 (>60 ml/min/1.73 sqM); Albumin 3.2 g/dL (3.5-5.0); Alkaline Phosphatase 84 U/L (38-126); Anion Gap 16 mmol/L; Blood Urea Nitrogen 44 mg/dL (7-17); Calcium 9.2 mg/dL (8.4-10.2); Carbon Dioxide 14 mmol/L (22-30); Chloride 95 mmol/L (98-107); Glucose 311 mg/dL (74-99); Magnesium 1.9 mg/dL (1.6-2.3); Non-African American GFR(CKD) 35 (>60 ml/min/1.73 sqM); Potassium 4.7 mmol/L (3.5-5.1); Sodium 125 mmol/L (137-145); Total Bilirubin 0.9 mg/dL (0.2-1.3); Total Protein 6.5 g/dL (6.3-8.2)
[2024-12-24 19:28] LABS: Anisocytosis Slight; HCT 25.8 % (34.0-46.0); HGB 8.3 gm/dL (11.4-16.0); Hypochromasia Slight; MCH 30.9 pg (25.0-35.0); MCHC 32.2 g/dL (31.0-37.0); Macrocytosis Slight; Mean Platelet Volume 10.5; Platelet Count 305 k/uL (150-450); RBC 2.68 m/uL (3.80-5.40); RDW 18.1 % (11.5-15.5); WBC 9.9 k/uL (3.8-10.6)
[2024-12-24 19:47] LABS: Band Neutrophils % 6 %; Metamyelocytes % 1 %; Monocytes # (M) 0.69 k/uL (0-1.0); Myelocytes % 1 %; Neutrophils % (M) 82 %; Nucleated Red Blood Cells 0 /100 WBC (0-0); Total Cells Counted 200
[2024-12-24 19:48] LABS: Poikilocytosis (M) Present; Rouleaux Present
[2024-12-24] MEDS ORDERED: VALSARTAN 80 MG TAB PO SCH (21:00)
[2024-12-24] MEDS ORDERED: atenoloL 25 MG TAB PO SCH (21:00)
[2024-12-24 21:10] LABS: Glucose,Whole Blood 251 mg/dL (70-110)
[2024-12-24] MEDS ORDERED: DEXTROSE 50% SYRINGE 50 ML IVP PRN ×2 (21:39)
[2024-12-24] MEDS: ACYCLOVIR 200 MG CAP PO SCH (23:24)
[2024-12-24] MEDS: atenoloL 25 MG TAB PO SCH (23:25)
[2024-12-24] MEDS: SODIUM BICARBONATE TAB 650 MG TAB PO SCH (23:25)
[2024-12-24] MEDS: INSULIN LISPRO (HumaLOG) 100 UNIT/ML 10 mL VL SQ SCH (23:25)
[2024-12-24] MEDS: ASPIRIN 81 MG PO SCH (23:25)
[2024-12-24] MEDS: SODIUM CHLORIDE 0.9% 1,000 ML IV SCH (23:26)
[2024-12-25 05:59] LABS: African American GFR (CKD) 34 (>60 ml/min/1.73 sqM); Anion Gap 10 mmol/L; Blood Urea Nitrogen 49 mg/dL (7-17); Calcium 8.5 mg/dL (8.4-10.2); Carbon Dioxide 15 mmol/L (22-30); Chloride 102 mmol/L (98-107); Glucose 115 mg/dL (74-99); Non-African American GFR(CKD) 29 (>60 ml/min/1.73 sqM); Potassium 4.3 mmol/L (3.5-5.1); Sodium 127 mmol/L (137-145)
[2024-12-25] MEDS: LEVOTHYROXINE 112 MCG TAB PO SCH (06:33)
[2024-12-25 06:35] LABS: Glucose,Whole Blood 114 mg/dL (70-110)
[2024-12-25] MEDS: HYDROmorphone 0.5 MG/0.5 ML SYRINGE IVP PRN (08:15)
[2024-12-25] MEDS: ACETAMINOPHEN IV (For NPO) 1,000 MG in EMPTY BAG 1 BAG IVPB SCH (08:15)
[2024-12-25] MEDS: PANTOPRAZOLE 40 MG TABLET PO SCH (09:42)
[2024-12-25 10:43] LABS: Basophils # (M) 0 X 10*3/uL (0.00-0.10); Eosinophils # (M) 0.07 X 10*3/uL (0.04-0.35); HCT 18.2 % (37.2-46.3); Lymphocytes # (M) 0.68 X 10*3/uL (0.90-5.00); MCH 30.6 pg (27.0-32.0); MCV 92.9 FL (80.0-97.0); Mean Platelet Volume 11.2 FL (9.5-12.2); Metamyelocytes % 3 % (0-0); Monocytes # (M) 0.11 X 10*3/uL (0.20-1.00); Myelocytes % 1 % (0-0); NRBC Per 100 WBC 0.02 X 10*3/uL (0.00-0.01); Neutrophils # (M) 2.53 X 10*3/uL (1.80-7.70); Neutrophils % (M) 71 %; Platelet Count 164 X 10*3/uL (140-440); Promyelocytes # (M) 0.04 k/uL (0); Promyelocytes % 1 %; RBC 1.96 X 10*6/uL (4.10-5.20); RBC Morphology Normal (Normal); WBC 3.57 X 10*3/uL (4.50-10.00)
--- NOTE | 2024-12-25 11:17 | P.NPCON ---
History of Present Illness - Reason for Consult acute renal failure - History of Present Illness Reason for consultation: Acute kidney injury History of present illness: Patient is a 79-year-old female seen in renal consultation for acute kidney injury. Patient's creatinine was 0.83 dated December 22, 2024 and is up to 1.68 today. Patient came to the hospital with abdominal pain. Patient states she has multiple myeloma and is maintained on chemotherapy. Patient states when she was seen by her oncology outpatient, she was advised to come to the hospital as her x-ray showed free air. She had a CT done which also demonstrated free air. She is being followed by surgery and no surgical interventions are planned at this time. She has an external catheter. She is making urine. She is receiving IV fluids. I do see Bactrim on her home medication list. Also on Diovan outpatient. Oral intake is fair. Denies vomiting or diarrhea. Denies chest pain or shortness of breath. She does have edema in her left lower extremity and was recently diagnosed with a DVT. No edema in the right lower extremity. Vital signs are stable. General: No acute distress. HEENT: Head exam is unremarkable. LUNGS: No audible rhonchi or wheezes. HEART: Rate and Rhythm are regular. ABDOMEN: Nontender. EXTREMITITES: 1+ edema left lower extremity. Past Medical History Past Medical History: Coronary Artery Disease (CAD), Cancer, Diabetes Mellitus, Hyperlipidemia, Hypertension, Thyroid Disorder Additional Past Medical History / Comment(s): Chronic neck pain from compressed disks in her neck, cancer back History of Any Multi-Drug Resistant Organisms: None Reported Past Surgical History: Section, Orthopedic Surgery Additional Past Surgical History / Comment(s): Left knee replacement, bypass Past Psychological History: No Psychological Hx Reported Smoking Status: Never smoker Past Alcohol Use History: None Reported Past Drug Use History: None Reported - Past Family History Father Family Medical History: Myocardial Infarction ([place]) Additional Family Medical History / Comment(s): at 70 years old from myocardial infarction-suspected. Mother Additional Family Medical History / Comment(s): from "enlarged heart" at 87 years old Brother(s) Family Medical History: Coronary Artery Disease (CAD) Additional Family Medical History / Comment(s): Multiple stents placed Son(s) Family Medical History: CVA/TIA Additional Family Medical History / Comment(s): from stroke at 41 years old Medications and Allergies Home Medications Medication Instructions Recorded Confirmed Type Aspirin EC [Ecotrin Low Dose] 81 mg PO HS #30 tab 11/01/20 12/24/24 Rx Levothyroxine Sodium [Synthroid] 112 mcg PO AC-BRKFST #30 tab 11/01/20 12/24/24 Rx Dulaglutide [Trulicity] 0.75 mg SQ MO 11/09/24 12/24/24 History dexAMETHasone [Decadron] 20 mg PO MO 11/09/24 12/24/24 History traMADol HCL 25 mg PO Q8H PRN 11/09/24 12/24/24 History Acyclovir [Zovirax] 400 mg PO BID 12/16/24 12/24/24 History Bortezomib 1 dose INJ WE 12/16/24 12/24/24 History Fluconazole [Diflucan] 100 mg PO DAILY 12/16/24 12/24/24 History Lenalidomide 15 mg PO DIRECTED 12/16/24 12/24/24 History Ondansetron Odt [Zofran ODT] 4 mg PO Q8HR PRN 12/16/24 12/24/24 History Pantoprazole [Protonix] 40 mg PO DAILY #30 tab 12/16/24 12/24/24 Rx Sulfamethox-Tmp 800-160Mg [Bactrim 1 tab PO MOWEFR 12/16/24 12/24/24 History DS 800-160 mg] Valsartan [Diovan] 80 mg PO HS 12/16/24 12/24/24 History atenoloL [Tenormin] 25 mg PO HS 12/16/24 12/24/24 History Apixaban [Eliquis Starter Pack See Taper PO DIRECTED 12/24/24 12/24/24 History (for VTE)] Collagenase [Santyl Ointment] 1 applic TOPICAL DIRECTED 12/24/24 12/24/24 History Sodium Bicarbonate Tab 650 mg PO DIRECTED 12/24/24 12/24/24 History Allergies Allergy/AdvReac Type Severity Reaction Status Date / Time epinephrine AdvReac Intermediate Rapid Verified 12/24/24 18:03 Heart Rate Physical Exam Vitals: Vital Signs Temp Pulse Pulse Resp BP BP Pulse Ox 12/25/24 08:20 98.0 F 68 20 115/60 95 12/25/24 02:24 97.6 F 64 15 95/54 97 12/24/24 21:06 98.4 F 71 17 117/58 96 12/24/24 19:00 67 20 93/55 97 12/24/24 16:52 97.5 F L 61 16 108/56 100 12/24/24 15:35 97.5 F L 66 18 119/82 98 Intake and Output 12/24/24 12/25/24 12/25/24 22:59 06:59 14:59 Intake Total 1080 Output Total 250 Balance 830 Intake: Oral 1080 Output: Urine 250 Other: Voiding Method External Catheter External Catheter # Voids 1 Weight 63.503 kg Results - Lab Results Most recent lab results Calcium 8.5 mg/dL (8.4-10.2) 12/25/24 05:22 Magnesium 1.9 mg/dL (1.6-2.3) 12/24/24 16:16 12/25/24 05:38 12/25/24 05:22 Assessment and Plan Plan: Assessment: 1. Acute kidney injury secondary to septic ATN. Baseline creatinine near 0.8 and is 1.[address] scan from December 24, 2024 showed no evidence of hydronephrosis. 2. Multiple myeloma maintained on chemotherapy. 3. Acute diverticulitis with perforation being followed by surgery. 4. Acute blood loss anemia scheduled to receive a unit of blood today. 5. Metabolic acidosis secondary to acute kidney injury and IV fluids. 6. Hyponatremia secondary to acute kidney injury. Hypovolemic. 7. Gram-negative bacteremia on antibiotics. Plan: Change IV fluids to isotonic sodium bicarb drip. IV DDAVP x 1 dose today. Avoid nephrotoxins. Continue to monitor renal function and urine output. Cleared for PICC line placement in the dominant arm. PICC line is for TPN. Thank you for the consultation. I will continue to follow the patient with you during her hospital stay.
[2024-12-25 11:42] LABS: Magnesium 1.8 mg/dL (1.6-2.3); Phosphorus 4.3 mg/dL (2.5-4.5)
[2024-12-25 11:52] LABS: Glucose,Whole Blood 121 mg/dL (70-110)
[2024-12-25] MEDS: DEXTROSE 5% IN WATER 1,000 ML with SODIUM BICARB (1 MEQ/ML) 150 ML IV SCH (13:21)
[2024-12-25] MEDS: DESMOPRESSIN ACETATE 16 MCG in SODIUM CHLORIDE 0.9% 50 ML IVPB ONE (13:21)
--- NOTE | 2024-12-25 13:56 | P.GSCN ---
History of Present Illness Consult date: 12/25/24 History of present illness: CHIEF COMPLAINT: Abdominal pain HISTORY OF PRESENT ILLNESS: This is a 79-year-old female with a known history of multiple leiomyoma and currently undergoing chemotherapy. She also has a history of DVT and on Eliquis. Last dose of Eliquis was on December 24. Patient presents the hospital with complaints of abdominal pain for over a week. She denies any nausea or vomiting. She reports having bowel movements. Patient does have a known history of diverticulosis. She reports her last colonoscopy was about 5 years ago and reported diverticulosis. She had a CT scan abdomen and pelvis that had reported acute diverticulitis of the transverse colon with perforation. Surgical service consulted for diverticulitis with perforation. Patient did have a positive blood culture of E. coli and is currently on antibiotics. Patient seen and examined with Dr. Rodriges PAST MEDICAL HISTORY: Coronary Artery Disease (CAD), multiple myeloma, Diabetes Mellitus, Hyperlipidemia, Hypertension, Thyroid Disorder, Chronic neck pain from compressed disks in her neck, PAST SURGICAL HISTORY: , orthopedic surgery MEDICATIONS: See below ALLERGIES: See below SOCIAL HISTORY: No illicit drug use. REVIEW OF SYSTEMS: CONSTITUTIONAL: Denies fever or chills. HEENT: Denies blurred vision, vision changes, or eye pain. Denies hemoptysis CARDIOVASCULAR: Denies chest pain or pressure. RESPIRATORY: No shortness of breath. GASTROINTESTINAL: See HPI for pertinent findings HEMATOLOGIC: Denies bleeding disorders. GENITOURINARY: Denies any blood in urine or increased urinary frequency. SKIN: Denies pruitis. Denies rash. PHYSICAL EXAM: VITAL SIGNS: Reviewed GENERAL: Well-developed in no acute distress. HEENT: No sclera icterus. Extraocular movements grossly intact. Moist buccal mucosa. Head is atraumatic, normocephalic. No nasal drainage. ABDOMEN: Soft. Nondistended. Tenderness palpation suprapubic area left lower quadrant and right upper abdomen. No rebound or guarding noted. NEUROLOGIC: Alert and oriented. Cranial nerves II through XII grossly intact. LABORATORY DATA: WBC 3.57 Hgb 8.3 down to 6.0 platelets 164 Sodium is 127 potassium is 4.3 creatinine 1.68 Lactic acid 3.0 down to 1.9 Albumin 3.2 IMAGING: CT scan abdomen pelvis reports acute diverticulitis of the transverse colon with perforation and free intraperitoneal air no bowel obstruction or abscess. Multiple lytic lesions involving the L2 and sacrum with a moderate compression fracture of L2. Findings consistent with multiple myeloma history. Marked cholelithiasis. ASSESSMENT: 1. Acute diverticulitis of the transverse colon with perforation 2. Multiple myeloma currently on chemotherapy 3. Acute kidney injury 4. History of DVT on Eliquis at home 5. Anemia 6. Bacteremia likely due to diverticulitis with perforation PLAN: -No surgical intervention planned. Patient is not a good surgical candidate with her history of multiple myeloma on chemotherapy and on Eliquis for DVT -Recommend medical management with antibiotics -Continue supportive care -Keep patient n.p.o. -Consult infectious disease for antibiotic management -Transfuse 1 unit of blood for hemoglobin of 6 -Dr. Rodriges did discuss case with patient's son via telephone. Patient's son is considering having patient transferred to another hospital. Physician Welding Tester note has been reviewed by physician. Signing provider agrees with the documented findings, assessment, and plan of care. Past Medical History Past Medical History: Coronary Artery Disease (CAD), Cancer, Diabetes Mellitus, Hyperlipidemia, Hypertension, Thyroid Disorder Additional Past Medical History / Comment(s): Chronic neck pain from compressed disks in her neck, cancer back History of Any Multi-Drug Resistant Organisms: None Reported Past Surgical History: Section, Orthopedic Surgery Additional Past Surgical History / Comment(s): Left knee replacement, bypass Past Psychological History: No Psychological Hx Reported Smoking Status: Never smoker Past Alcohol Use History: None Reported Past Drug Use History: None Reported - Past Family History Father Family Medical History: Myocardial Infarction ([place]) Additional Family Medical History / Comment(s): at 70 years old from myocardial infarction-suspected. Mother Additional Family Medical History / Comment(s): from "enlarged heart" at 87 years old Brother(s) Family Medical History: Coronary Artery Disease (CAD) Additional Family Medical History / Comment(s): Multiple stents placed Son(s) Family Medical History: CVA/TIA Additional Family Medical History / Comment(s): from stroke at 43 years old Medications and Allergies Home Medications Medication Instructions Recorded Confirmed Type Aspirin EC [Ecotrin Low Dose] 81 mg PO HS #30 tab 11/01/20 12/24/24 Rx Levothyroxine Sodium [Synthroid] 112 mcg PO AC-BRKFST #30 tab 11/01/20 12/24/24 Rx Dulaglutide [Trulicity] 0.75 mg SQ MO 11/09/24 12/24/24 History dexAMETHasone [Decadron] 20 mg PO MO 11/09/24 12/24/24 History traMADol HCL 25 mg PO Q8H PRN 11/09/24 12/24/24 History Acyclovir [Zovirax] 400 mg PO BID 12/16/24 12/24/24 History Bortezomib 1 dose INJ WE 12/16/24 12/24/24 History Fluconazole [Diflucan] 100 mg PO DAILY 12/16/24 12/24/24 History Lenalidomide 15 mg PO DIRECTED 12/16/24 12/24/24 History Ondansetron Odt [Zofran ODT] 4 mg PO Q8HR PRN 12/16/24 12/24/24 History Pantoprazole [Protonix] 40 mg PO DAILY #30 tab 12/16/24 12/24/24 Rx Sulfamethox-Tmp 800-160Mg [Bactrim 1 tab PO MOWEFR 12/16/24 12/24/24 History DS 800-160 mg] Valsartan [Diovan] 80 mg PO HS 12/16/24 12/24/24 History atenoloL [Tenormin] 25 mg PO HS 12/16/24 12/24/24 History Apixaban [Eliquis Starter Pack See Taper PO DIRECTED 12/24/24 12/24/24 History (for VTE)] Collagenase [Santyl Ointment] 1 applic TOPICAL DIRECTED 12/24/24 12/24/24 History Sodium Bicarbonate Tab 650 mg PO DIRECTED 12/24/24 12/24/24 History Allergies Allergy/AdvReac Type Severity Reaction Status Date / Time epinephrine AdvReac Intermediate Rapid Verified 12/24/24 18:03 Heart Rate Surgical - Exam Vital Signs Temp Pulse Resp BP Pulse Ox 97.5 F L 66 18 119/82 98 12/24/24 15:35 12/24/24 15:35 12/24/24 15:35 12/24/24 15:35 12/24/24 15:35 Results - Labs 12/25/24 05:38 12/25/24 05:22 Abnormal Lab Results - Last 24 Hours (Table) 12/24/24 12/24/24 12/24/24 Range/Units 16:16 16:16 16:16 RBC 2.68 L (3.80-5.40) m/uL Hgb 8.3 L (11.4-16.0) gm/dL Hct 25.8 L (34.0-46.0) % RDW 18.1 H (11.5-15.5) % Neutrophils # (Manual) 8.70 H (1.3-7.7) k/uL Lymphocytes # (Manual) 0.40 L (1.0-4.8) k/uL Metamyelocytes # (Man) 0.10 H (0) k/uL Myelocytes # (Manual) 0.10 H (0) k/uL Sodium 125 L (137-145) mmol/L Chloride 95 L (98-107) mmol/L Carbon Dioxide 14 L (22-30) mmol/L BUN 44 H (7-17) mg/dL Creatinine 1.46 H (0.52-1.04) mg/dL Glucose 311 H (74-99) mg/dL POC Glucose (mg/dL) (70-110) mg/dL Hemoglobin A1c (<=6.0) % Plasma Lactic Acid Aki 3.0 H* (0.7-2.0) mmol/L AST 49 H (14-36) U/L Albumin 3.2 L (3.5-5.0) g/dL 12/24/24 12/25/24 12/25/24 Range/Units 21:08 05:22 05:38 RBC (3.80-5.40) m/uL Hgb (11.4-16.0) gm/dL Hct (34.0-46.0) % RDW (11.5-15.5) % Neutrophils # (Manual) (1.3-7.7) k/uL Lymphocytes # (Manual) (1.0-4.8) k/uL Metamyelocytes # (Man) (0) k/uL Myelocytes # (Manual) (0) k/uL Sodium 127 L (137-145) mmol/L Chloride (98-107) mmol/L Carbon Dioxide 15 L (22-30) mmol/L BUN 49 H (7-17) mg/dL Creatinine 1.68 H (0.52-1.04) mg/dL Glucose 115 H (74-99) mg/dL POC Glucose (mg/dL) 251 H (70-110) mg/dL Hemoglobin A1c 8.6 H (<=6.0) % Plasma Lactic Acid Aki (0.7-2.0) mmol/L AST (14-36) U/L Albumin (3.5-5.0) g/dL 12/25/24 Range/Units 06:33 RBC (3.80-5.40) m/uL Hgb (11.4-16.0) gm/dL Hct (34.0-46.0) % RDW (11.5-15.5) % Neutrophils # (Manual) (1.3-7.7) k/uL Lymphocytes # (Manual) (1.0-4.8) k/uL Metamyelocytes # (Man) (0) k/uL Myelocytes # (Manual) (0) k/uL Sodium (137-145) mmol/L Chloride (98-107) mmol/L Carbon Dioxide (22-30) mmol/L BUN (7-17) mg/dL Creatinine (0.52-1.04) mg/dL Glucose (74-99) mg/dL POC Glucose (mg/dL) 114 H (70-110) mg/dL Hemoglobin A1c (<=6.0) % Plasma Lactic Acid Aki (0.7-2.0) mmol/L AST (14-36) U/L Albumin (3.5-5.0) g/dL Microbiology - Last 24 Hours (Table) 12/24/24 16:47 Blood Culture Gram Stain - Preliminary Blood Blood Culture - Preliminary Molecular ID Diabetes panel 12/24/24 12/25/24 12/25/24 Range/Units 16:16 05:22 05:38 Sodium 125 L 127 L (137-145) mmol/L Potassium 4.7 4.3 (3.5-5.1) mmol/L Chloride 95 L 102 (98-107) mmol/L Carbon Dioxide 14 L 15 L (22-30) mmol/L BUN 44 H 49 H (7-17) mg/dL Creatinine 1.46 H 1.68 H (0.52-1.04) mg/dL Glucose 311 H 115 H (74-99) mg/dL Hemoglobin A1c 8.6 H (<=6.0) % Calcium 9.2 8.5 (8.4-10.2) mg/dL AST 49 H (14-36) U/L ALT 23 (4-34) U/L Alkaline Phosphatase 84 (38-126) U/L Total Protein 6.5 (6.3-8.2) g/dL Albumin 3.2 L (3.5-5.0) g/dL Calcium panel 12/24/24 12/25/24 Range/Units 16:16 05:22 Calcium 9.2 8.5 (8.4-10.2) mg/dL Albumin 3.2 L (3.5-5.0) g/dL Pituitary panel 12/24/24 12/25/24 Range/Units 16:16 05:22 Sodium 125 L 127 L (137-145) mmol/L Potassium 4.7 4.3 (3.5-5.1) mmol/L Chloride 95 L 102 (98-107) mmol/L Carbon Dioxide 14 L 15 L (22-30) mmol/L BUN 44 H 49 H (7-17) mg/dL Creatinine 1.46 H 1.68 H (0.52-1.04) mg/dL Glucose 311 H 115 H (74-99) mg/dL Calcium 9.2 8.5 (8.4-10.2) mg/dL Adrenal panel 12/24/24 12/25/24 Range/Units 16:16 05:22 Sodium 125 L 127 L (137-145) mmol/L Potassium 4.7 4.3 (3.5-5.1) mmol/L Chloride 95 L 102 (98-107) mmol/L Carbon Dioxide 14 L 15 L (22-30) mmol/L BUN 44 H 49 H (7-17) mg/dL Creatinine 1.46 H 1.68 H (0.52-1.04) mg/dL Glucose 311 H 115 H (74-99) mg/dL Calcium 9.2 8.5 (8.4-10.2) mg/dL Total Bilirubin 0.9 (0.2-1.3) mg/dL AST 49 H (14-36) U/L ALT 23 (4-34) U/L Alkaline Phosphatase 84 (38-126) U/L Total Protein 6.5 (6.3-8.2) g/dL Albumin 3.2 L (3.5-5.0) g/dL
--- NOTE | 2024-12-25 15:32 | P.HPIM ---
History of Present Illness H&P Date: 12/25/24 Chief Complaint: Abdominal pain This 79-year-old female was just discharged on December 22, 2024 for lower extremity DVT. She has a history of multiple myeloma had worsening swelling in her leg. She has a history of therapeutic radiation and normocytic anemia from this. She had electrolyte abnormalities on that admission but there was no mention of abdominal pain during that admission. She told Dr. Greenwood saw her oncologist she had had abdominal pain and a CT scan was done. She was found to have an acute diverticulitis with the transverse colon with a small perforation. She was admitted for IV hydration and IV antibiotics. She has not been on her Eliquis since 1 day ago. Her blood cultures are now positive. Surgery wanted to do it total parenteral nutritional line but recommended a supportive care plan with no surgical intervention this time. She is also found to be anemic with a hemoglobin of 6.3 being transfuse 1 unit of packed red blood cells. She is currently on Zosyn. IV fluids of D5 water at 100 cc/h. Nephrology was ordered. She is also had evidence of worsening kidney failure. In the room the patient is awake alert indicates her abdominal pain is improved and points to midepigastrium. Family is at bedside. Her son would like her transferred to a tertiary care facility. Review of Systems All systems: negative Past Medical History Past Medical History: Coronary Artery Disease (CAD), Cancer, Diabetes Mellitus, Hyperlipidemia, Hypertension, Thyroid Disorder Additional Past Medical History / Comment(s): Chronic neck pain from compressed disks in her neck, cancer back History of Any Multi-Drug Resistant Organisms: None Reported Past Surgical History: Section, Orthopedic Surgery Additional Past Surgical History / Comment(s): Left knee replacement, bypass Past Psychological History: No Psychological Hx Reported Smoking Status: Never smoker Past Alcohol Use History: None Reported Past Drug Use History: None Reported - Past Family History Father Family Medical History: Myocardial Infarction ([place]) Additional Family Medical History / Comment(s): at 70 years old from myocardial infarction-suspected. Mother Additional Family Medical History / Comment(s): from "enlarged heart" at 87 years old Brother(s) Family Medical History: Coronary Artery Disease (CAD) Additional Family Medical History / Comment(s): Multiple stents placed Son(s) Family Medical History: CVA/TIA Additional Family Medical History / Comment(s): from stroke at 41 years old Medications and Allergies Home Medications Medication Instructions Recorded Confirmed Type Aspirin EC [Ecotrin Low Dose] 81 mg PO HS #30 tab 11/01/20 12/24/24 Rx Levothyroxine Sodium [Synthroid] 112 mcg PO AC-BRKFST #30 tab 11/01/20 12/24/24 Rx Dulaglutide [Trulicity] 0.75 mg SQ MO 11/09/24 12/24/24 History dexAMETHasone [Decadron] 20 mg PO MO 11/09/24 12/24/24 History traMADol HCL 25 mg PO Q8H PRN 11/09/24 12/24/24 History Acyclovir [Zovirax] 400 mg PO BID 12/16/24 12/24/24 History Bortezomib 1 dose INJ WE 12/16/24 12/24/24 History Fluconazole [Diflucan] 100 mg PO DAILY 12/16/24 12/24/24 History Lenalidomide 15 mg PO DIRECTED 12/16/24 12/24/24 History Ondansetron Odt [Zofran ODT] 4 mg PO Q8HR PRN 12/16/24 12/24/24 History Pantoprazole [Protonix] 40 mg PO DAILY #30 tab 12/16/24 12/24/24 Rx Sulfamethox-Tmp 800-160Mg [Bactrim 1 tab PO MOWEFR 12/16/24 12/24/24 History DS 800-160 mg] Valsartan [Diovan] 80 mg PO HS 12/16/24 12/24/24 History atenoloL [Tenormin] 25 mg PO HS 12/16/24 12/24/24 History Apixaban [Eliquis Starter Pack See Taper PO DIRECTED 12/24/24 12/24/24 History (for VTE)] Collagenase [Santyl Ointment] 1 applic TOPICAL DIRECTED 12/24/24 12/24/24 History Sodium Bicarbonate Tab 650 mg PO DIRECTED 12/24/24 12/24/24 History Allergies Allergy/AdvReac Type Severity Reaction Status Date / Time epinephrine AdvReac Intermediate Rapid Verified 12/24/24 18:03 Heart Rate Physical Exam Vitals: Vital Signs Temp Pulse Pulse Resp BP BP Pulse Ox 12/25/24 14:31 97.8 F 69 16 101/63 99 12/25/24 14:11 97.8 F 63 16 84/46 98 12/25/24 14:01 98.0 F 65 16 92/48 97 12/25/24 08:20 98.0 F 68 20 115/60 95 12/25/24 02:24 97.6 F 64 15 95/54 97 12/24/24 21:06 98.4 F 71 17 117/58 96 12/24/24 19:00 67 20 93/55 97 12/24/24 16:52 97.5 F L 61 16 108/56 100 12/24/24 15:35 97.5 F L 66 18 119/82 98 Intake and Output 12/25/24 12/25/24 12/25/24 06:59 14:59 22:59 Intake Total 1080 0 Output Total 250 Balance 830 0 Intake: Oral 1080 Blood Product 0 Unit 0 Output: Urine 250 Other: Voiding Method External Catheter # Voids 1 Weight 63.503 kg GENERAL: Elderly female who appears chronically ill. HEAD: Atraumatic, normocephalic. EYES: Pupils equal round and reactive to light, extraocular movements intact, sclera anicteric, conjunctiva are normal. ENT:nares patent, oropharynx clear without exudates. Moist mucous membranes. NECK: Normal range of motion, supple without lymphadenopathy or JVD, no thyromegaly LUNGS: Breath sounds clear to auscultation bilaterally and equal. No wheezes rales or rhonchi. HEART: Regular rate and rhythm 1/6 systolic murm rubs or gallops.S1S2 Normal ABDOMEN: Soft, midepigastric tenderness to palpation, there is no rebound, no significant guarding EXTREMITIES: Normal range of motion, no pitting or edema. No clubbing or cyan osis. NEUROLOGICAL: Cranial nerves II through XII grossly intact. Normal speech, normal gait. PSYCH: Normal mood, normal affect. SKIN: Warm, Dry, normal turgor, no rashes or lesions noted. Results CBC & Chem 7: 12/25/24 05:38 12/25/24 05:22 Labs: Abnormal Lab Results - Last 24 Hours (Table) 12/24/24 12/24/24 12/24/24 Range/Units 16:16 16:16 16:16 WBC (4.50-10.00) X 10*3/uL RBC 2.68 L (3.80-5.40) m/uL Hgb 8.3 L (11.4-16.0) gm/dL Hct 25.8 L (34.0-46.0) % RDW 18.1 H (11.5-15.5) % Neutrophils # (Manual) 8.70 H (1.3-7.7) k/uL Lymphocytes # (Manual) 0.40 L (1.0-4.8) k/uL Monocytes # (Manual) (0.20-1.00) X 10*3/uL Metamyelocytes # (Man) 0.10 H (0) k/uL Myelocytes # (Manual) 0.10 H (0) k/uL NRBC/100 WBC Diff (0.00-0.01) X 10*3/uL Sodium 125 L (137-145) mmol/L Chloride 95 L (98-107) mmol/L Carbon Dioxide 14 L (22-30) mmol/L BUN 44 H (7-17) mg/dL Creatinine 1.46 H (0.52-1.04) mg/dL Glucose 311 H (74-99) mg/dL POC Glucose (mg/dL) (70-110) mg/dL Hemoglobin A1c (<=6.0) % Plasma Lactic Acid Aki 3.0 H* (0.7-2.0) mmol/L AST 49 H (14-36) U/L Albumin 3.2 L (3.5-5.0) g/dL Crossmatch 12/24/24 12/25/24 12/25/24 Range/Units 21:08 05:22 05:38 WBC 3.57 L (4.50-10.00) X 10*3/uL RBC 1.96 L (3.80-5.40) m/uL Hgb 6.0 A* (11.4-16.0) gm/dL Hct 18.2 A* (34.0-46.0) % RDW 18.0 H (11.5-15.5) % Neutrophils # (Manual) (1.3-7.7) k/uL Lymphocytes # (Manual) 0.68 L (1.0-4.8) k/uL Monocytes # (Manual) 0.11 L (0.20-1.00) X 10*3/uL Metamyelocytes # (Man) (0) k/uL Myelocytes # (Manual) (0) k/uL NRBC/100 WBC Diff 0.02 H (0.00-0.01) X 10*3/uL Sodium 127 L (137-145) mmol/L Chloride (98-107) mmol/L Carbon Dioxide 15 L (22-30) mmol/L BUN 49 H (7-17) mg/dL Creatinine 1.68 H (0.52-1.04) mg/dL Glucose 115 H (74-99) mg/dL POC Glucose (mg/dL) 251 H (70-110) mg/dL Hemoglobin A1c (<=6.0) % Plasma Lactic Acid Aki (0.7-2.0) mmol/L AST (14-36) U/L Albumin (3.5-5.0) g/dL Crossmatch 12/25/24 12/25/24 12/25/24 Range/Units 05:38 06:33 11:12 WBC (4.50-10.00) X 10*3/uL RBC (3.80-5.40) m/uL Hgb (11.4-16.0) gm/dL Hct (34.0-46.0) % RDW (11.5-15.5) % Neutrophils # (Manual) (1.3-7.7) k/uL Lymphocytes # (Manual) (1.0-4.8) k/uL Monocytes # (Manual) (0.20-1.00) X 10*3/uL Metamyelocytes # (Man) (0) k/uL Myelocytes # (Manual) (0) k/uL NRBC/100 WBC Diff (0.00-0.01) X 10*3/uL Sodium (137-145) mmol/L Chloride (98-107) mmol/L Carbon Dioxide (22-30) mmol/L BUN (7-17) mg/dL Creatinine (0.52-1.04) mg/dL Glucose (74-99) mg/dL POC Glucose (mg/dL) 114 H (70-110) mg/dL Hemoglobin A1c 8.6 H (<=6.0) % Plasma Lactic Acid Aki (0.7-2.0) mmol/L AST (14-36) U/L Albumin (3.5-5.0) g/dL Crossmatch See Detail 12/25/24 Range/Units 11:51 WBC (4.50-10.00) X 10*3/uL RBC (3.80-5.40) m/uL Hgb (11.4-16.0) gm/dL Hct (34.0-46.0) % RDW (11.5-15.5) % Neutrophils # (Manual) (1.3-7.7) k/uL Lymphocytes # (Manual) (1.0-4.8) k/uL Monocytes # (Manual) (0.20-1.00) X 10*3/uL Metamyelocytes # (Man) (0) k/uL Myelocytes # (Manual) (0) k/uL NRBC/100 WBC Diff (0.00-0.01) X 10*3/uL Sodium (137-145) mmol/L Chloride (98-107) mmol/L Carbon Dioxide (22-30) mmol/L BUN (7-17) mg/dL Creatinine (0.52-1.04) mg/dL Glucose (74-99) mg/dL POC Glucose (mg/dL) 121 H (70-110) mg/dL Hemoglobin A1c (<=6.0) % Plasma Lactic Acid Aki (0.7-2.0) mmol/L AST (14-36) U/L Albumin (3.5-5.0) g/dL Crossmatch Microbiology - Last 24 Hours (Table) 12/24/24 16:47 Blood Culture Gram Stain - Preliminary Blood Blood Culture - Preliminary Molecular ID CT scan - abdomen: report reviewed Thrombosis Risk Factor Assmnt - DVT/VTE Prophylaxis DVT/VTE Prophylaxis: Pharmacologic Prophylaxis ordered (will defer to Hem/Onc) - Choose All That Apply Each Risk Factor Represents 3 Points: Age 75 years or older, History of DVT/PE Thrombosis Risk Factor Assessment Total Risk Factor Score: 6 Thrombosis Risk Factor Assessment Level: High Risk Assessment and Plan (1) Pancytopenia Current Visit: Yes Status: Acute Code(s): D61.818 - OTHER PANCYTOPENIA S NOMED Code(s): 021662216 (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 Current Visit: Yes Status: Acute Code(s): E11.59 - TYPE 2 DIABETES MELLITUS WITH OTH CIRCULATORY COMPLICATIONS SNOMED Code(s): 75226839 (3) Abdominal pain Current Visit: Yes Status: Acute Code(s): R10.9 - UNSPECIFIED ABDOMINAL PAIN SNOMED Code(s): 54521509 (4) Perforated diverticulum Current Visit: Yes Status: Acute Code(s): K57.80 - DVTRCLI OF INTEST, PART UNSP, W PERF AND ABSCESS W/O BLEED SNOMED Code(s): 03898950 (5) Pneumoperitoneum Current Visit: Yes Status: Acute Code(s): K66.8 - OTHER SPECIFIED DISORDERS OF PERITONEUM SNOMED Code(s): 44993763 (6) Deep vein thrombosis (DVT) of lower extremity Current Visit: No Status: Acute Priority: Medium Code(s): I82.409 - ACUTE EMBOLISM AND THOMBOS UNSP DEEP VN UNSP LOWER EXTREMITY SNOMED Code(s): 341466823 (7) Dehydration Current Visit: No Status: Acute Code(s): E86.0 - DEHYDRATION SNOMED Code(s): 48028023 (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 Current Visit: No Status: Acute Code(s): Z95.1 - PRESENCE OF AORTOCORONARY BYPASS GRAFT SNOMED Code(s): 666519625 (9) H/O therapeutic radiation Current Visit: No Status: Acute Code(s): Z92.3 - PERSONAL HISTORY OF IRRADIATION SNOMED Code(s): 797004693 (10) Hypertension Current Visit: No Status: Acute Code(s): I10 - ESSENTIAL (PRIMARY) HYPERTENSION SNOMED Code(s): 05914601 (11) Hyponatremia Current Visit: No Status: Acute Code(s): E87.1 - HYPO-OSMOLALITY AND HYPONATREMIA SNOMED Code(s): 17540651 (12) Multiple myeloma Current Visit: No Status: Acute Priority: Medium Code(s): C90.00 - MULTIP LE MYELOMA NOT HAVING ACHIEVED REMISSION SNOMED Code(s): 978021922 Plan: At this point I discussed the case at length with the patient, Dr. Rodriges, and the floor nurse, and we will plan transferring to [facility] at the family's request as we are unable to do PPN and TPN is not possible because a PICC line cannot be placed since she has positive blood cultures at this time.
--- NOTE | 2024-12-25 15:37 | P.DS ---
Providers Date of admission: 12/24/24 18:25 Expected date of discharge: 12/25/24 Attending physician: Mark Park Consults: 12/24/24 18:20 Consult Physician Urgent Consulting Provider: Jim Waggoner Consult Reason/Comments: multiple myeloma Do you want consulting provider notified?: Yes Consult Physician Urgent Consulting Provider: Eliezer Rodriges Consult Reason/Comments: perforated diverticulitis Do you want consulting provider notified?: Already Contacted 12/25/24 09:29 Consult Physician Urgent Consulting Provider: Kirby Briscoe Consult Reason/Comments: PICC line arm placement Do you want consulting provider notified?: Yes 12/25/24 11:01 Consult Physician Routine Consulting Provider: Juan Franklin Consult Reason/Comments: Perforated diverticulitis, bacteremia Do you want consulting provider notified?: Yes 12/25/24 14:27 Consult Physician Routine Consulting Provider: Shaniqua Jackson Consult Reason/Comments: eval for IVC filter, recent DVT, anticoag contraindication Do you want consulting provider notified?: Yes Primary care physician: Jarett Gomze - Shante Diagnosis(es) (1) Pancytopenia Current Visit: Yes Status: Acute (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 Current Visit: Yes Status: Acute (3) Abdominal pain Current Visit: Yes Status: Acute (4) Perforated diverticulum Current Visit: Yes Status: Acute (5) Pneumoperitoneum Current Visit: Yes Status: Acute (6) Deep vein thrombosis (DVT) of lower extremity Current Visit: No Status: Acute Priority: Medium (7) Dehydration Current Visit: No Status: Acute (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 Current Visit: No Status: Acute (9) H/O therapeutic radiation Current Visit: No Status: Acute (10) Hypertension Current Visit: No Status: Acute (11) Hyponatremia Current Visit: No Status: Acute (12) Multiple myeloma Current Visit: No Status: Acute Priority: Medium Hospital Course: his 79-year-old female was just discharged on December 22, 2024 for lower extremity DVT. She has a history of multiple myeloma had worsening swelling in her leg. She has a history of therapeutic radiation and normocytic anemia from this. She had electrolyte abnormalities on that admission but there was no mention of abdominal pain during that admission. She told Dr. Greenwood saw her oncologist she had had abdominal pain and a CT scan was done. She was found to have an acute diverticulitis with the transverse colon with a small perforation. She was admitted for IV hydration and IV antibiotics. She has not been on her Eliquis since 1 day ago. Her blood cultures are now positive. Surgery wanted to do it total parenteral nutritional line but recommended a supportive care plan with no surgical intervention this time. She is also found to be anemic with a hemoglobin of 6.3 being transfuse 1 unit of packed red blood cells. She is currently on Zosyn. IV fluids of D5 water at 100 cc/h. Nephrology was ordered. She is also had evidence of worsening kidney failure. In the room the patient is awake alert indicates her abdominal pain is improved and points to midepigastrium. Family is at bedside. Her son would like her transferred to a tertiary care facility. Addendum: After significant discussion with the family it was agreed to transfer the patient to a tertiary care facility, [facility] is excepting and will make arrangements. Patient Condition at Discharge: Stable Plan - Discharge Summary Discharge Rx Participant: No New Discharge Prescriptions: New INSULIN LISPRO (HumaLOG) [HumaLOG] 0 unit SQ ACHS each Piperacillin-Tazobactam [Zosyn] 3.375 gm IVPB Q8H each atenoloL [Tenormin] 25 mg PO HS tab Acetaminophen Tab [Tylenol] 650 mg PO Q6HR PRN tab PRN Reason: Mild Pain Or Fever > 100.5 Continue Aspirin EC [Ecotrin Low Dose] 81 mg PO HS #30 tab Levothyroxine Sodium [Synthroid] 112 mcg PO AC-BRKFST #30 tab traMADol HCL 25 mg PO Q8H PRN PRN Reason: Pain atenoloL [Tenormin] 25 mg PO HS Ondansetron Odt [Zofran ODT] 4 mg PO Q8HR PRN PRN Reason: Nausea Fluconazole [Diflucan] 100 mg PO DAILY Lenalidomide 15 mg PO DIRECTED Pantoprazole [Protonix] 40 mg PO DAILY #30 tab Apixaban [Eliquis Starter Pack (for VTE)] See Taper PO DIRECTED dexAMETHasone [Decadron] 20 mg PO MO Dulaglutide [Trulicity] 0.75 mg SQ MO Valsartan [Diovan] 80 mg PO HS Sulfamethox-Tmp 800-160Mg [Bactrim DS 800-160 mg] 1 tab PO MOWEFR Acyclovir [Zovirax] 400 mg PO BID Bortezomib 1 dose INJ WE Collagenase [Santyl Ointment] 1 applic TOPICAL DIRECTED Sodium Bicarbonate Tab 650 mg PO DIRECTED Discharge Medication List Aspirin EC [Ecotrin Low Dose] 81 mg PO HS #30 tab 11/01/20 [Rx] Levothyroxine Sodium [Synthroid] 112 mcg PO AC-BRKFST #30 tab 11/01/20 [Rx] Dulaglutide [Trulicity] 0.75 mg SQ MO 11/09/24 [History] dexAMETHasone [Decadron] 20 mg PO MO 11/09/24 [History] traMADol HCL 25 mg PO Q8H PRN 11/09/24 [History] Acyclovir [Zovirax] 400 mg PO BID 12/16/24 [History] Bortezomib 1 dose INJ WE 12/16/24 [History] Fluconazole [Diflucan] 100 mg PO DAILY 12/16/24 [History] Lenalidomide 15 mg PO DIRECTED 12/16/24 [History] Ondansetron Odt [Zofran ODT] 4 mg PO Q8HR PRN 12/16/24 [History] Pantoprazole [Protonix] 40 mg PO DAILY #30 tab 12/16/24 [Rx] Sulfamethox-Tmp 800-160Mg [Bactrim DS 800-160 mg] 1 tab PO MOWEFR 12/16/24 [Hi story] Valsartan [Diovan] 80 mg PO HS 12/16/24 [History] atenoloL [Tenormin] 25 mg PO HS 12/16/24 [History] Apixaban [Eliquis Starter Pack (for VTE)] See Taper PO DIRECTED 12/24/24 [History] Collagenase [Santyl Ointment] 1 applic TOPICAL DIRECTED 12/24/24 [History] Sodium Bicarbonate Tab 650 mg PO DIRECTED 12/24/24 [History] Acetaminophen Tab [Tylenol] 650 mg PO Q6HR PRN tab 12/25/24 [Rx] INSULIN LISPRO (HumaLOG) [HumaLOG] 0 unit SQ ACHS each 12/25/24 [Rx] Piperacillin-Tazobactam [Zosyn] 3.375 gm IVPB Q8H each 12/25/24 [Rx] atenoloL [Tenormin] 25 mg PO HS tab 12/25/24 [Rx] Discharge Disposition: OTHER INSTITUTION NOT DEFINED Plan of Treatment: Transfer to [facility] for further workup and tertiary care
--- NOTE | 2024-12-25 16:09 | P.CONS ---
History of Present Illness - Reason for Consult Consult date: 12/25/24 Peripheral diverticulitis, bacteremia Requesting physician: Michelle Blunt - Chief Complaint Abdominal pain x days - History of Present Illness Patient is a 79-year-old female with a past medical history significant for Coronary Artery Disease (CAD), Cancer, Diabetes Mellitus, Hyperlipidemia, Hypertension, Thyroid Disorder presenting to the hospital for evaluation of abnormal CT that was done in the outpatient setting concerning for free air patient mention has been dealing with a lower abdominal pain that has been going on for a while and she was cutting noting it subsequent noted to have worsening of the pain mostly to the left lower quadrant area sharp moderate intensity without radiation did have some nausea but no vomiting denies any diarrhea or constipation patient on presentation to the hospital was afebrile no fever; subsequently patient was not tachycardic hypotensive or hypoxic he did have a white count of 9.9 with repeat of 3.57 hemoglobin is 6.0 BUN and creatinine has been mildly elevated liver enzymes are normal blood cultures obtained which came back positive with E. 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 Mother Additional Family Medical History / Comment(s): from "enlarged heart" at 87 years old Brother(s) Family Medical History: Coronary Artery Disease (CAD) Additional Family Medical History / Comment(s): Multiple stents placed Son(s) Family Medical History: CVA/TIA Additional Family Medical History / Comment(s): from stroke at 41 years old Medications and Allergies Home Medications Medication Instructions Recorded Confirmed Type Aspirin EC [Ecotrin Low Dose] 81 mg PO HS #30 tab 11/01/20 12/24/24 Rx Levothyroxine Sodium [Synthroid] 112 mcg PO AC-BRKFST #30 tab 11/01/20 12/24/24 Rx Dulaglutide [Trulicity] 0.75 mg SQ MO 11/09/24 12/24/24 History dexAMETHasone [Decadron] 20 mg PO MO 11/09/24 12/24/24 History traMADol HCL 25 mg PO Q8H PRN 11/09/24 12/24/24 History Acyclovir [Zovirax] 400 mg PO BID 12/16/24 12/24/24 History Bortezomib 1 dose INJ WE 12/16/24 12/24/24 History Fluconazole [Diflucan] 100 mg PO DAILY 12/16/24 12/24/24 History Lenalidomide 15 mg PO DIRECTED 12/16/24 12/24/24 History Ondansetron Odt [Zofran ODT] 4 mg PO Q8HR PRN 12/16/24 12/24/24 History Pantoprazole [Protonix] 40 mg PO DAILY #30 tab 12/16/24 12/24/24 Rx Sulfamethox-Tmp 800-160Mg [Bactrim 1 tab PO MOWEFR 12/16/24 12/24/24 History DS 800-160 mg] Valsartan [Diovan] 80 mg PO HS 12/16/24 12/24/24 History atenoloL [Tenormin] 25 mg PO HS 12/16/24 12/24/24 History Apixaban [Eliquis Starter Pack See Taper PO DIRECTED 12/24/24 12/24/24 History (for VTE)] Collagenase [Santyl Ointment] 1 applic TOPICAL DIRECTED 12/24/24 12/24/24 History Sodium Bicarbonate Tab 650 mg PO DIRECTED 12/24/24 12/24/24 History Acetaminophen Tab [Tylenol] 650 mg PO Q6HR PRN tab 12/25/24 Rx INSULIN LISPRO (HumaLOG) [HumaLOG] 0 unit SQ ACHS each 12/25/24 Rx Piperacillin-Tazobactam [Zosyn] 3.375 gm IVPB Q8H each 12/25/24 Rx atenoloL [Tenormin] 25 mg PO HS tab 12/25/24 Rx Allergies Allergy/AdvReac Type Severity Reaction Status Date / Time epinephrine AdvReac Intermediate Rapid Verified 12/24/24 18:03 Heart Rate Physical Exam Vitals: Vital Signs Temp Pulse Pulse Resp BP BP Pulse Ox 12/25/24 08:20 98.0 F 68 20 115/60 95 12/25/24 02:24 97.6 F 64 15 95/54 97 12/24/24 21:06 98.4 F 71 17 117/58 96 12/24/24 19:00 67 20 93/55 97 12/24/24 16:52 97.5 F L 61 16 108/56 100 12/24/24 15:35 97.5 F L 66 18 119/82 98 Intake and Output 12/24/24 12/25/24 12/25/24 22:59 06:59 14:59 Intake Total 1080 Output Total 250 Balance 830 Intake: Oral 1080 Output: Urine 250 Other: Voiding Method External Catheter External Catheter # Voids 1 Weight 63.503 kg GENERAL DESCRIPTION: Elderly female lying in bed, no distress. No tachypnea or accessory muscle of respiration use. HEENT: Shows Pallor , no scleral icterus. Oral mucous membrane is dry. No pharyngeal erythema or thrush NECK: Trachea central, no thyromegaly. LUNGS: Unlabored breathing. Clear to auscultation anteriorly. No wheeze or crackle. HEART: S1, S2, regular rate and rhythm. No loud murmur ABDOMEN: Soft, mild tenderness no guarding rigidity EXTREMITIES: No edema of feet. SKIN: No rash, no masses palpable. NEUROLOGICAL: The patient is awake, alert, oriented x3, mood and affect normal. Results CBC & Chem 7: 12/26/24 04:31 12/26/24 04:31 Labs: Abnormal Lab Results - Last 24 Hours (Table) 12/24/24 12/24/24 12/24/24 Range/Units 16:16 16:16 16:16 WBC (4.50-10.00) X 10*3/uL RBC 2.68 L (3.80-5.40) m/uL Hgb 8.3 L (11.4-16.0) gm/dL Hct 25.8 L (34.0-46.0) % RDW 18.1 H (11.5-15.5) % Neutrophils # (Manual) 8.70 H (1.3-7.7) k/uL Lymphocytes # (Manual) 0.40 L (1.0-4.8) k/uL Monocytes # (Manual) (0.20-1.00) X 10*3/uL Metamyelocytes # (Man) 0.10 H (0) k/uL Myelocytes # (Manual) 0.10 H (0) k/uL NRBC/100 WBC Diff (0.00-0.01) X 10*3/uL Sodium 125 L (137-145) mmol/L Chloride 95 L (98-107) mmol/L Carbon Dioxide 14 L (22-30) mmol/L BUN 44 H (7-17) mg/dL Creatinine 1.46 H (0.52-1.04) mg/dL Glucose 311 H (74-99) mg/dL POC Glucose (mg/dL) (70-110) mg/dL Hemoglobin A1c (<=6.0) % Plasma Lactic Acid Aki 3.0 H* (0.7-2.0) mmol/L AST 49 H (14-36) U/L Albumin 3.2 L (3.5-5.0) g/dL 12/24/24 12/25/24 12/25/24 Range/Units 21:08 05:22 05:38 WBC 3.57 L (4.50-10.00) X 10*3/uL RBC 1.96 L (3.80-5.40) m/uL Hgb 6.0 A* (11.4-16.0) gm/dL Hct 18.2 A* (34.0-46.0) % RDW 18.0 H (11.5-15.5) % Neutrophils # (Manual) (1.3-7.7) k/uL Lymphocytes # (Manual) 0.68 L (1.0-4.8) k/uL Monocytes # (Manual) 0.11 L (0.20-1.00) X 10*3/uL Metamyelocytes # (Man) (0) k/uL Myelocytes # (Manual) (0) k/uL NRBC/100 WBC Diff 0.02 H (0.00-0.01) X 10*3/uL Sodium 127 L (137-145) mmol/L Chloride (98-107) mmol/L Carbon Dioxide 15 L (22-30) mmol/L BUN 49 H (7-17) mg/dL Creatinine 1.68 H (0.52-1.04) mg/dL Glucose 115 H (74-99) mg/dL POC Glucose (mg/dL) 251 H (70-110) mg/dL Hemoglobin A1c (<=6.0) % Plasma Lactic Acid Aki (0.7-2.0) mmol/L AST (14-36) U/L Albumin (3.5-5.0) g/dL 12/25/24 12/25/24 Range/Units 05:38 06:33 WBC (4.50-10.00) X 10*3/uL RBC (3.80-5.40) m/uL Hgb (11.4-16.0) gm/dL Hct (34.0-46.0) % RDW (11.5-15.5) % Neutrophils # (Manual) (1.3-7.7) k/uL Lymphocytes # (Manual) (1.0-4.8) k/uL Monocytes # (Manual) (0.20-1.00) X 10*3/uL Metamyelocytes # (Man) (0) k/uL Myelocytes # (Manual) (0) k/uL NRBC/100 WBC Diff (0.00-0.01) X 10*3/uL Sodium (137-145) mmol/L Chloride (98-107) mmol/L Carbon Dioxide (22-30) mmol/L BUN (7-17) mg/dL Creatinine (0.52-1.04) mg/dL Glucose (74-99) mg/dL POC Glucose (mg/dL) 114 H (70-110) mg/dL Hemoglobin A1c 8.6 H (<=6.0) % Plasma Lactic Acid Aki (0.7-2.0) mmol/L AST (14-36) U/L Albumin (3.5-5.0) g/dL Microbiology - Last 24 Hours (Table) 12/24/24 16:47 Blood Culture Gram Stain - Preliminary Blood Blood Culture - Preliminary Molecular ID Assessment and Plan (1) Perforation of sigmoid colon due to diverticulitis Current Visit: Yes Status: Acute Code(s): K57.20 - DVTRCLI OF LG INT W PERFORATION AND ABSCESS W/O BLEEDING SNOMED Code(s): 6640692781533757 (2) Bacteremia Current Visit: Yes Status: Acute Code(s): R78.81 - BACTEREMIA SNOMED Code(s): 6407807 Plan: 1patient with E. coli bacteremia source likely abdominal in this patient with evidence of abnormal CT with free air concerning for perforated diverticulitis but did not mention any abscess 2patient will be treated with Zosyn 3.37 every 8 hours along with bowel rest Care discussed in detail with the family at the bedside question concern answered We will follow on clinical condition and cultures to further adjust medication if needed Thank you for this consultation we will follow the patient along with you Dictation was produced using [email or web address] dictation software. please excuse any grammatical, word or spelling errors. Time with Patient: Greater than 30
[2024-12-25 16:48] LABS: Glucose,Whole Blood 189 mg/dL (70-110)
--- NOTE | 2024-12-25 19:48 | P.CONS ---
History of Present Illness - Reason for Consult Consult date: 12/25/24 multiple myeloma Requesting physician: Marilyn Elizabeth - Chief Complaint abd pain - History of Present Illness Ms. Meza is a 79-year-old woman with a past medical history significant for CAD s/p four-vessel CABG along with diabetes mellitus type 2 who presents for evaluation of multiple myeloma. In late May 2024, she noted developing low back pain after helping move a lawn more back into the garage. Since then, she has had persistent back pain despite physical therapy, which she felt may have made the back pain worse. She did have MRI imaging ordered through orthopedics on 10/05/2024 noting pathologic marrow infiltration throughout the lumbar spine and pelvis with pathologic fracture of L2 vertebral body and extraosseous extension of tumor causing left neural foraminal narrowing at L1-L2 and L2-L3. Labs on 10/19/2024 were notable for elevated total protein at 11.1 with creatinine 1.1, calcium 10.5, LDH 176, elevated beta-2 microglobulin of 5.3, hemoglobin 11.7 (MCV 93.8), WBC 7.44, platelets 288. Serum protein electrophoresis noted M protein measuring 4.04 g/dL with kappa light chain being 90.1 and lambda light chain being 1.18. PET/CT on 10/23/2024 noted destructive osseous lesion in the L2 vertebral body with soft tissue component that was FDG avid measuring 3.7 x 3.5 cm. T12 vertebral body had increased FDG avidity with an SUV of 5.1. The osseous structures overall had a demineralized appearance with abnormal sclerosis with prior fractures of the pubic rami noted. Given the back pain along with elevated M protein, there was concern for multiple myeloma. She was seen by radiation oncology on 10/30/2024 will be initiating palliative radiation therapy on 11/10/2024 and has been receiving dexamethasone 4 mg daily with mild relief. Based off of the elevated total protein, M protein of 4.04 g/dL, elevated kappa light chain at 90.1, and beta-2 microglobulin of 5.30, and Bence- Howard proteins in the urine electrophoresis, there is high clinical concern for multiple myeloma. She does appear to have stage II multiple myeloma as serum beta-2 microglobulin is greater than 3.5, but less than 5.5. In addition to palliative radiation therapy, pt was recommended to start on RVD, completing cycle 2, day 8 on 12/24/24. Pt was reporting abd pain at her infusiion and CT AP was obtained showing acute diverticulitis of the transverse colon with perforation and free intraperitoneal air, no bowel obstruction or abscess noted. At which time she was referred to the ER for further evaluation. Of note pt had recent admit for LLE DVT. She has continued on eliquis for the same. Upon admit WBC 9.9, hemoglobin 8.3, Plt 305. Repeat CBC today showing WBC 3.5, hemoglobin 6.0, platelets 164,000. 1 unit PRBCs has been ordered. Eliquis has been held. Lactic acid elevated at 3.0. Creatinine 1.68, GFR 28. General surgery has been consulted and plans for conservative management at this time. Blood culture positive for E. coli. Patient started on IV antibiotics. Review of Systems 10 point ROS is negative except as stated in the HPI Past Medical History Past Medical History: Coronary Artery Disease (CAD), Cancer, Diabetes Mellitus, Hyperlipidemia, Hypertension, Thyroid Disorder Additional Past Medical History / Comment(s): Chronic neck pain from compressed disks in her neck, cancer back History of Any Multi-Drug Resistant Organisms: None Reported Past Surgical History: Section, Orthopedic Surgery Additional Past Surgical History / Comment(s): Left knee replacement, bypass Past Psychological History: No Psychological Hx Reported Smoking Status: Never smoker Past Alcohol Use History: None Reported Past Drug Use History: None Reported - Past Family History Father Family Medical History: Myocardial Infarction ([place]) Additional Family Medical History / Comment(s): at 70 years old from myocardial infarction-suspected. Mother Additional Family Medical History / Comment(s): from "enlarged heart" at 87 years old Brother(s) Family Medical History: Coronary Artery Disease (CAD) Additional Family Medical History / Comment(s): Multiple stents placed Son(s) Family Medical History: CVA/TIA Additional Family Medical History / Comment(s): from stroke at 41 years old Medications and Allergies Home Medications Medication Instructions Recorded Confirmed Type Aspirin EC [Ecotrin Low Dose] 81 mg PO HS #30 tab 11/01/20 12/24/24 Rx Levothyroxine Sodium [Synthroid] 112 mcg PO AC-BRKFST #30 tab 11/01/20 12/24/24 Rx Dulaglutide [Trulicity] 0.75 mg SQ MO 11/09/24 12/24/24 History dexAMETHasone [Decadron] 20 mg PO MO 11/09/24 12/24/24 History traMADol HCL 25 mg PO Q8H PRN 11/09/24 12/24/24 History Acyclovir [Zovirax] 400 mg PO BID 12/16/24 12/24/24 History Bortezomib 1 dose INJ WE 12/16/24 12/24/24 History Fluconazole [Diflucan] 100 mg PO DAILY 12/16/24 12/24/24 History Lenalidomide 15 mg PO DIRECTED 12/16/24 12/24/24 History Ondansetron Odt [Zofran ODT] 4 mg PO Q8HR PRN 12/16/24 12/24/24 History Pantoprazole [Protonix] 40 mg PO DAILY #30 tab 12/16/24 12/24/24 Rx Sulfamethox-Tmp 800-160Mg [Bactrim 1 tab PO MOWEFR 12/16/24 12/24/24 History DS 800-160 mg] Valsartan [Diovan] 80 mg PO HS 12/16/24 12/24/24 History atenoloL [Tenormin] 25 mg PO HS 12/16/24 12/24/24 History Apixaban [Eliquis Starter Pack See Taper PO DIRECTED 12/24/24 12/24/24 History (for VTE)] Collagenase [Santyl Ointment] 1 applic TOPICAL DIRECTED 12/24/24 12/24/24 History Sodium Bicarbonate Tab 650 mg PO DIRECTED 12/24/24 12/24/24 History Acetaminophen Tab [Tylenol] 650 mg PO Q6HR PRN tab 12/25/24 Rx INSULIN LISPRO (HumaLOG) [HumaLOG] 0 unit SQ ACHS each 12/25/24 Rx Piperacillin-Tazobactam [Zosyn] 3.375 gm IVPB Q8H each 12/25/24 Rx atenoloL [Tenormin] 25 mg PO HS tab 12/25/24 Rx Allergies Allergy/AdvReac Type Severity Reaction Status Date / Time epinephrine AdvReac Intermediate Rapid Verified 12/24/24 18:03 Heart Rate Physical Exam Vitals: Vital Signs Temp Pulse Pulse Resp BP BP Pulse Ox 12/25/24 08:20 98.0 F 68 20 115/60 95 12/25/24 02:24 97.6 F 64 15 95/54 97 12/24/24 21:06 98.4 F 71 17 117/58 96 12/24/24 19:00 67 20 93/55 97 12/24/24 16:52 97.5 F L 61 16 108/56 100 12/24/24 15:35 97.5 F L 66 18 119/82 98 Intake and Output 12/24/24 12/25/24 12/25/24 22:59 06:59 14:59 Intake Total 1080 Output Total 250 Balance 830 Intake: Oral 1080 Output: Urine 250 Other: Voiding Method External Catheter External Catheter # Voids 1 Weight 63.503 kg - Constitutional General appearance: average body habitus, no acute distress - EENT Eyes: anicteric sclerae, EOMI ENT: hearing grossly normal - Respiratory Respiratory: bilateral: CTA - Cardiovascular Rhythm: regular - Gastrointestinal mild tenderness General gastrointestinal: soft - Integumentary Integumentary: no cyanotic - Neurologic Neurologic: CNII-XII intact Results CBC & Chem 7: 12/25/24 05:38 12/25/24 05:22 Labs: Abnormal Lab Results - Last 24 Hours (Table) 12/24/24 12/24/24 12/24/24 Range/Units 16:16 16:16 16:16 WBC (4.50-10.00) X 10*3/uL RBC 2.68 L (3.80-5.40) m/uL Hgb 8.3 L (11.4-16.0) gm/dL Hct 25.8 L (34.0-46.0) % RDW 18.1 H (11.5-15.5) % Neutrophils # (Manual) 8.70 H (1.3-7.7) k/uL Lymphocytes # (Manual) 0.40 L (1.0-4.8) k/uL Monocytes # (Manual) (0.20-1.00) X 10*3/uL Metamyelocytes # (Man) 0.10 H (0) k/uL Myelocytes # (Manual) 0.10 H (0) k/uL NRBC/100 WBC Diff (0.00-0.01) X 10*3/uL Sodium 125 L (137-145) mmol/L Chloride 95 L (98-107) mmol/L Carbon Dioxide 14 L (22-30) mmol/L BUN 44 H (7-17) mg/dL Creatinine 1.46 H (0.52-1.04) mg/dL Glucose 311 H (74-99) mg/dL POC Glucose (mg/dL) (70-110) mg/dL Hemoglobin A1c (<=6.0) % Plasma Lactic Acid Aki 3.0 H* (0.7-2.0) mmol/L AST 49 H (14-36) U/L Albumin 3.2 L (3.5-5.0) g/dL Crossmatch 12/24/24 12/25/24 12/25/24 Range/Units 21:08 05:22 05:38 WBC 3.57 L (4.50-10.00) X 10*3/uL RBC 1.96 L (3.80-5.40) m/uL Hgb 6.0 A* (11.4-16.0) gm/dL Hct 18.2 A* (34.0-46.0) % RDW 18.0 H (11.5-15.5) % Neutrophils # (Manual) (1.3-7.7) k/uL Lymphocytes # (Manual) 0.68 L (1.0-4.8) k/uL Monocytes # (Manual) 0.11 L (0.20-1.00) X 10*3/uL Metamyelocytes # (Man) (0) k/uL Myelocytes # (Manual) (0) k/uL NRBC/100 WBC Diff 0.02 H (0.00-0.01) X 10*3/uL Sodium 127 L (137-145) mmol/L Chloride (98-107) mmol/L Carbon Dioxide 15 L (22-30) mmol/L BUN 49 H (7-17) mg/dL Creatinine 1.68 H (0.52-1.04) mg/dL Glucose 115 H (74-99) mg/dL POC Glucose (mg/dL) 251 H (70-110) mg/dL Hemoglobin A1c (<=6.0) % Plasma Lactic Acid Aki (0.7-2.0) mmol/L AST (14-36) U/L Albumin (3.5-5.0) g/dL Crossmatch 12/25/24 12/25/24 12/25/24 Range/Units 05:38 06:33 11:12 WBC (4.50-10.00) X 10*3/uL RBC (3.80-5.40) m/uL Hgb (11.4-16.0) gm/dL Hct (34.0-46.0) % RDW (11.5-15.5) % Neutrophils # (Manual) (1.3-7.7) k/uL Lymphocytes # (Manual) (1.0-4.8) k/uL Monocytes # (Manual) (0.20-1.00) X 10*3/uL Metamyelocytes # (Man) (0) k/uL Myelocytes # (Manual) (0) k/uL NRBC/100 WBC Diff (0.00-0.01) X 10*3/uL Sodium (137-145) mmol/L Chloride (98-107) mmol/L Carbon Dioxide (22-30) mmol/L BUN (7-17) mg/dL Creatinine (0.52-1.04) mg/dL Glucose (74-99) mg/dL POC Glucose (mg/dL) 114 H (70-110) mg/dL Hemoglobin A1c 8.6 H (<=6.0) % Plasma Lactic Acid Aki (0.7-2.0) mmol/L AST (14-36) U/L Albumin (3.5-5.0) g/dL Crossmatch See Detail 12/25/24 Range/Units 11:51 WBC (4.50-10.00) X 10*3/uL RBC (3.80-5.40) m/uL Hgb (11.4-16.0) gm/dL Hct (34.0-46.0) % RDW (11.5-15.5) % Neutrophils # (Manual) (1.3-7.7) k/uL Lymphocytes # (Manual) (1.0-4.8) k/uL Monocytes # (Manual) (0.20-1.00) X 10*3/uL Metamyelocytes # (Man) (0) k/uL Myelocytes # (Manual) (0) k/uL NRBC/100 WBC Diff (0.00-0.01) X 10*3/uL Sodium (137-145) mmol/L Chloride (98-107) mmol/L Carbon Dioxide (22-30) mmol/L BUN (7-17) mg/dL Creatinine (0.52-1.04) mg/dL Glucose (74-99) mg/dL POC Glucose (mg/dL) 121 H (70-110) mg/dL Hemoglobin A1c (<=6.0) % Plasma Lactic Acid Aki (0.7-2.0) mmol/L AST (14-36) U/L Albumin (3.5-5.0) g/dL Crossmatch Microbiology - Last 24 Hours (Table) 12/24/24 16:47 Blood Culture Gram Stain - Preliminary Blood Blood Culture - Preliminary Molecular ID CT scan - abdomen: report reviewed CT scan - pelvis: report reviewed Assessment and Plan (1) Abdominal pain Current Visit: Yes Status: Acute Code(s): R10.9 - UNSPECIFIED ABDOMINAL PAIN SNOMED Code(s): 38081934 (2) Bacteremia Current Visit: Yes Status: Acute Code(s): R78.81 - BACTEREMIA SNOMED Code(s): 6177219 (3) Pancytopenia Current Visit: Yes Status: Acute Code(s): D61.818 - OTHER PANCYTOPENIA SNOMED Code(s): 126634973 (4) Perforated diverticulum Current Visit: Yes Status: Acute Code(s): K57.80 - DVTRCLI OF INTEST, PART UNSP, W PERF AND ABSCESS W/O BLEED SNOMED Code(s): 43346193 (5) Multiple myeloma Current Visit: No Status: Acute Priority: Medium Code(s): C90.00 - MULTIPLE MYELOMA NOT HAVING ACHIEVED REMISSION SNOMED Code(s): 995085106 Plan: Abd pain, diverticulitis with perforation, bacteremia: Presented with abd pain -CT AP showing acute diverticulitis of the transverse colon with perforation and free intraperitoneal air, no bowel obstruction or abscess noted. . -General surgery following and plans for conservative management at this time. -Blood culture positive for E. coli. Patient started on IV antibiotics. ID consulted Case discussed with surgery team LLE DVT: -Recent diagnosis of LLE DVT. Was started on Eliquis -Due to drop in hgb, and concern for possible bleed, ASA and eliquis has been held -Consult placed to vascular surgery for IVC filter placement Multiple myeloma: -Oncology history as dictated in the HPI -Was started on RVD, completing cycle 2, day 8 on 12/24 -Treatment on hold until acutely recovered Upon review of EMR, admitting team plans to transfer pt to tertiary center for higher level of care Doctor attests: I performed a history and physical examination of this patient, developed impression and plan of care. Discussed with dictator. I agree with dictators note, documented as a scribe.
[2024-12-25 20:52] LABS: Glucose,Whole Blood 233 mg/dL (70-110)
[2024-12-26 06:07] LABS: Ionized Calcium 4.6 mg/dL (4.5-5.3)
[2024-12-26 06:09] LABS: ALT 15 U/L (4-34); AST 16 U/L (14-36); African American GFR (CKD) 39 (>60 ml/min/1.73 sqM); Albumin 2.2 g/dL (3.5-5.0); Albumin/Globulin Ratio 0.9; Alkaline Phosphatase 60 U/L (38-126); Anion Gap 10 mmol/L; Blood Urea Nitrogen 47 mg/dL (7-17); Calcium 8.3 mg/dL (8.4-10.2); Carbon Dioxide 20 mmol/L (22-30); Chloride 96 mmol/L (98-107); Globulin 2.4 g/dL; Glucose 277 mg/dL (74-99); Magnesium 1.8 mg/dL (1.6-2.3); Non-African American GFR(CKD) 34 (>60 ml/min/1.73 sqM); Phosphorus 3.8 mg/dL (2.5-4.5); Potassium 3.9 mmol/L (3.5-5.1); Sodium 126 mmol/L (137-145); Total Bilirubin 1.2 mg/dL (0.2-1.3); Total Protein 4.6 g/dL (6.3-8.2)
[2024-12-26 06:19] LABS: Glucose,Whole Blood 320 mg/dL (70-110)
--- NOTE | 2024-12-26 08:24 | P.PN ---
Subjective Progress Note Date: 12/26/24 The patient states she feels better. She has less abdominal pain. She is resting in her bed comfortably. Apparently the patient is being transferred to [facility] [place]. On exam vital signs appear stable. Abdomen is soft. There is mild epigastric tenderness. History of perforated diverticulitis and a 79-year-old female with multiple myeloma and multiple medical problems including DVT on chemotherapy. Patient will continue supportive care. There was some discussion with the nurse with th at the patient may be made hospice. If the patient is still pursuing active treatment we will recommend a CT scan of the abdomen pelvis with oral and IV contrast today. Objective - Vital Signs Vital signs: Vital Signs Temp 97.7 F 12/26/24 07:03 Pulse 66 12/26/24 07:03 Resp 16 12/26/24 07:03 BP 116/71 12/26/24 07:03 Pulse Ox 97 12/26/24 07:03 FiO2 Intake & Output 12/25/24 12/26/24 12/26/24 18:59 06:59 18:59 Intake Total 310 Output Total 200 250 Balance 110 -250 Weight 63.503 kg Intake: Blood Product 310 Rc As-1 Unit 310 [id number] Output: Urine 200 250 Other: Voiding Method External Catheter External Catheter # Bowel Movements 1 1 - Labs CBC & Chem 7: 12/25/24 05:38 12/26/24 04:31 Labs: Abnormal Lab Results - Last 24 Hours (Table) 12/25/24 12/25/24 12/25/24 Range/Units 05:38 11:12 11:51 WBC 3.57 L (4.50-10.00) X 10*3/uL RBC 1.96 L (4.10-5.20) X 10*6/uL Hgb 6.0 A* (12.0-15.0) g/dL Hct 18.2 A* (37.2-46.3) % RDW 18.0 H (11.5-14.5) % Lymphocytes # (Manual) 0.68 L (0.90-5.00) X 10*3/uL Monocytes # (Manual) 0.11 L (0.20-1.00) X 10*3/uL NRBC/100 WBC Diff 0.02 H (0.00-0.01) X 10*3/uL Sodium (137-145) mmol/L Chloride (98-107) mmol/L Carbon Dioxide (22-30) mmol/L BUN (7-17) mg/dL Creatinine (0.52-1.04) mg/dL Glucose (74-99) mg/dL POC Glucose (mg/dL) 121 H (70-110) mg/dL Calcium (8.4-10.2) mg/dL Total Protein (6.3-8.2) g/dL Albumin (3.5-5.0) g/dL Crossmatch See Detail 12/25/24 12/25/24 12/26/24 Range/Units 16:48 20:51 04:31 WBC (4.50-10.00) X 10*3/uL RBC (4.10-5.20) X 10*6/uL Hgb (12.0-15.0) g/dL Hct (37.2-46.3) % RDW (11.5-14.5) % Lymphocytes # (Manual) (0.90-5.00) X 10*3/uL Monocytes # (Manual) (0.20-1.00) X 10*3/uL NRBC/100 WBC Diff (0.00-0.01) X 10*3/uL Sodium 126 L (137-145) mmol/L Chloride 96 L (98-107) mmol/L Carbon Dioxide 20 L (22-30) mmol/L BUN 47 H (7-17) mg/dL Creatinine 1.47 H (0.52-1.04) mg/dL Glucose 277 H (74-99) mg/dL POC Glucose (mg/dL) 189 H 233 H (70-110) mg/dL Calcium 8.3 L (8.4-10.2) mg/dL Total Protein 4.6 L (6.3-8.2) g/dL Albumin 2.2 L (3.5-5.0) g/dL Crossmatch 12/26/24 Range/Units 06:12 WBC (4.50-10.00) X 10*3/uL RBC (4.10-5.20) X 10*6/uL Hgb (12.0-15.0) g/dL Hct (37.2-46.3) % RDW (11.5-14.5) % Lymphocytes # (Manual) (0.90-5.00) X 10*3/uL Monocytes # (Manual) (0.20-1.00) X 10*3/uL NRBC/100 WBC Diff (0.00-0.01) X 10*3/uL Sodium (137-145) mmol/L Chloride (98-107) mmol/L Carbon Dioxide (22-30) mmol/L BUN (7-17) mg/dL Creatinine (0.52-1.04) mg/dL Glucose (74-99) mg/dL POC Glucose (mg/dL) 320 H (70-110) mg/dL Calcium (8.4-10.2) mg/dL Total Protein (6.3-8.2) g/dL Albumin (3.5-5.0) g/dL Crossmatch Microbiology - Last 24 Hours (Table) 12/24/24 16:47 Blood Culture Gram Stain - Preliminary Blood Blood Culture - Preliminary Molecular ID
--- NOTE | 2024-12-26 09:45 | P.PN ---
Subjective This 79-year-old female was just discharged on December 22, 2024 for lower extremity DVT. She has a history of multiple myeloma had worsening swelling in her leg. She has a history of therapeutic radiation and normocytic anemia from this. She had electrolyte abnormalities on that admission but there was no mention of abdominal pain during that admission. She told Dr. Greenwood saw her oncologist she had had abdominal pain and a CT scan was done. She was found to have an acute diverticulitis with the transverse colon with a small perforation. She was admitted for IV hydration and IV antibiotics. She has not been on her Eliquis since 1 day ago. Her blood cultures are now positive. Surgery wanted to do it total parenteral nutritional line but recommended a supportive care plan with no surgical intervention this time. She is also found to be anemic with a hemoglobin of 6.3 being transfuse 1 unit of packed red blood cells. She is currently on Zosyn. IV fluids of D5 water at 100 cc/h. Nephrology was ordered. She is also had evidence of worsening kidney failure. In the room the patient is awake alert indicates her abdominal pain is improved and points to midepigastrium. Family is at bedside. Her son would like her transferred to a tertiary care facility. 12/26/2024: Patient is resting in her room. She is scheduled be transferred to [facility] on insurance authorization. She has some mild increased abdominal pain. Surgery is following. They are planning a repeat CT soon. Patient remains NPO. She remains afebrile, heart rate controlled, blood pressure normal. Labs this morning show sodium 126 potassium 3.9 BUN is 47 creatinine 1.47 with a GFR of 34. She received 1 unit of packed red blood cells yesterday. Repeat CBC is pending Objective - Vital Signs Vital signs: Vital Signs Temp 97.7 F 12/26/24 07:03 Pulse 66 12/26/24 07:03 Resp 16 12/26/24 07:03 BP 116/71 12/26/24 07:03 Pulse Ox 97 12/26/24 07:03 FiO2 Intake & Output 12/25/24 12/26/24 12/26/24 18:59 06:59 18:59 Intake Total 310 Output Total 200 250 Balance 110 -250 Weight 63.503 kg Intake: Blood Product 310 Rc As-1 Unit 310 [id number] Output: Urine 200 250 Other: Voiding Method External Catheter External Catheter # Bowel Movements 1 1 - Exam GENERAL: Elderly female who appears chronically ill. HEAD: Atraumatic, normocephalic. NECK: Normal range of motion, supple without lymphadenopathy or JVD, no thyromegaly LUNGS: Breath sounds clear to auscultation bilaterally and equal. No wheezes rales or rhonchi. HEART: Regular rate and rhythm 1/6 systolic murm rubs or gallops.S1S2 Normal ABDOMEN: Soft, now with generalized abdominal pain she seems slightly more tender than previous. No rebound or specific guarding noted. EXTREMITIES: Normal range of motion, no pitting or edema. No clubbing or cyanosis. NEUROLOGICAL: Cranial nerves II through XII grossly intact. Normal speech, normal gait. PSYCH: Normal mood, normal affect. SKIN: Warm, Dry, normal turgor, no rashes or lesions noted. - Labs CBC & Chem 7: 12/25/24 05:38 12/26/24 04:31 Labs: Abnormal Lab Results - Last 24 Hours (Table) 12/25/24 12/25/24 12/25/24 Range/Units 05:38 11:12 11:51 WBC 3.57 L (4.50-10.00) X 10*3/uL RBC 1.96 L (4.10-5.20) X 10*6/uL Hgb 6.0 A* (12.0-15.0) g/dL Hct 18.2 A* (37.2-46.3) % RDW 18.0 H (11.5-14.5) % Lymphocytes # (Manual) 0.68 L (0.90-5.00) X 10*3/uL Monocytes # (Manual) 0.11 L (0.20-1.00) X 10*3/uL NRBC/100 WBC Diff 0.02 H (0.00-0.01) X 10*3/uL Sodium (137-145) mmol/L Chloride (98-107) mmol/L Carbon Dioxide (22-30) mmol/L BUN (7-17) mg/dL Creatinine (0.52-1.04) mg/dL Glucose (74-99) mg/dL POC Glucose (mg/dL) 121 H (70-110) mg/dL Calcium (8.4-10.2) mg/dL Total Protein (6.3-8.2) g/dL Albumin (3.5-5.0) g/dL Crossmatch See Detail 12/25/24 12/25/24 12/26/24 Range/Units 16:48 20:51 04:31 WBC (4.50-10.00) X 10*3/uL RBC (4.10-5.20) X 10*6/uL Hgb (12.0-15.0) g/dL Hct (37.2-46.3) % RDW (11.5-14.5) % Lymphocytes # (Manual) (0.90-5.00) X 10*3/uL Monocytes # (Manual) (0.20-1.00) X 10*3/uL NRBC/100 WBC Diff (0.00-0.01) X 10*3/uL Sodium 126 L (137-145) mmol/L Chloride 96 L (98-107) mmol/L Carbon Dioxide 20 L (22-30) mmol/L BUN 47 H (7-17) mg/dL Creatinine 1.47 H (0.52-1.04) mg/dL Glucose 277 H (74-99) mg/dL POC Glucose (mg/dL) 189 H 233 H (70-110) mg/dL Calcium 8.3 L (8.4-10.2) mg/dL Total Protein 4.6 L (6.3-8.2) g/dL Albumin 2.2 L (3.5-5.0) g/dL Crossmatch 12/26/24 Range/Units 06:12 WBC (4.50-10.00) X 10*3/uL RBC (4.10-5.20) X 10*6/uL Hgb (12.0-15.0) g/dL Hct (37.2-46.3) % RDW (11.5-14.5) % Lymphocytes # (Manual) (0.90-5.00) X 10*3/uL Monocytes # (Manual) (0.20-1.00) X 10*3/uL NRBC/100 WBC Diff (0.00-0.01) X 10*3/uL Sodium (137-145) mmol/L Chloride (98-107) mmol/L Carbon Dioxide (22-30) mmol/L BUN (7-17) mg/dL Creatinine (0.52-1.04) mg/dL Glucose (74-99) mg/dL POC Glucose (mg/dL) 320 H (70-110) mg/dL Calcium (8.4-10.2) mg/dL Total Protein (6.3-8.2) g/dL Albumin (3.5-5.0) g/dL Crossmatch Microbiology - Last 24 Hours (Table) 12/24/24 16:47 Blood Culture Gram Stain - Preliminary Blood Blood Culture - Preliminary Molecular ID Assessment and Plan (1) Pancytopenia Current Visit: Yes Status: Acute Code(s): D61.818 - OTHER PANCYTOPENIA SNOMED Code(s): 865768566 (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 Current Visit: Yes Status: Acute Code(s): E11.59 - TYPE 2 DIABETES MELLITUS WITH OTH CIRCULATORY COMPLICATIONS SNOMED Code(s): 99854942 (3) Abdominal pain Current Visit: Yes Status: Acute Code(s): R10.9 - UNSPECIFIED ABDOMINAL PAIN SNOMED Code(s): 36540184 (4) Perforated diverticulum Current Visit: Yes Status: Acute Code(s): K57.80 - DVTRCLI OF INTEST, PART UNSP, W PERF AND ABSCESS W/O BLEED SNOMED Code(s): 49415488 (5) Pneumoperitoneum Current Visit: Yes Status: Acute Code(s): K66.8 - OTHER SPECIFIED DISORDERS OF PERITONEUM SNOMED Code(s): 86206578 (6) Deep vein thrombosis (DVT) of lower extremity Current Visit: No Status: Acute Priority: Medium Code(s): I82.409 - ACUTE EMBOLISM AND THOMBOS UNSP DEEP VN UNSP LOWER EXTREMITY SNOMED Code(s): 637154585 (7) Dehydration Current Visit: No Status: Acute Code(s): E86.0 - DEHYDRATION SNOMED Code(s): 37306285 (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 Current Visit: No Status: Acute Code(s): Z95.1 - PRESENCE OF AORTOCORONARY BYPASS GRAFT SNOMED Code(s): 395982360 (9) H/O therapeutic radiation Current Visit: No Status: Acute Code(s): Z92.3 - PERSONAL HISTORY OF IRRADIATION SNOMED Code(s): 204684572 (10) Hypertension Current Visit: No Status: Acute Code(s): I10 - ESSENTIAL (PRIMARY) HYPERTENSION SNOMED Code(s): 75823188 (11) Hyponatremia Current Visit: No Status: Acute Code(s): E87.1 - HYPO-OSMOLALITY AND HYPONATREMIA SNOMED Code(s): 06656077 (12) Multiple myeloma Current Visit: No Status: Acute Priority: Medium Code(s): C90.00 - MULTIPLE MYELOMA NOT HAVING ACHIEVED REMISSION SNOMED Code(s): 341563154 Plan: Wait on further recommendations from surgery hematology oncology and vascular surgery. She remains n.p.o., she remains off her anticoagulation although she has a history of DVT due to current symptoms, transfers pending insurance authorization. She has Zosyn ordered for antibiotic coverage insulin scale her levothyroxine, she is on hydromorphone 0.5 every 3 hours for pain, she has D5 with bicarb at 150 cc/h. She will be evaluated by nursing regularly, wait on further recommendations from consultants, wait on her transfer,
--- NOTE | 2024-12-26 10:45 | P.PN ---
Subjective Patient is seen in follow-up for acute kidney injury. Renal function better. On bicarb drip. Acidosis improved. Son present at bedside. Vital signs are stable. General: No acute distress. HEENT: Head exam is unremarkable. LUNGS: No audible rhonchi or wheezes. HEART: Rate and Rhythm are regular. ABDOMEN: Generalized tenderness noted. EXTREMITITES: Trace edema. Objective - Vital Signs Vital signs: Vital Signs Temp 97.7 F 12/26/24 07:03 Pulse 66 12/26/24 07:03 Resp 16 12/26/24 07:03 BP 116/71 12/26/24 07:03 Pulse Ox 97 12/26/24 07:03 FiO2 Intake & Output 12/25/24 12/26/24 12/26/24 18:59 06:59 18:59 Intake Total 310 Output Total 200 250 Balance 110 -250 Weight 63.503 kg Intake: Blood Product 310 Rc As-1 Unit 310 [id number] Output: Urine 200 250 Other: Voiding Method External Catheter External Catheter # Bowel Movements 1 1 - Labs CBC & Chem 7: 12/25/24 05:38 12/26/24 04:31 Labs: Abnormal Lab Results - Last 24 Hours (Table) 12/25/24 12/25/24 12/25/24 Range/Units 05:38 11:12 11:51 WBC 3.57 L (4.50-10.00) X 10*3/uL RBC 1.96 L (4.10-5.20) X 10*6/uL Hgb 6.0 A* (12.0-15.0) g/dL Hct 18.2 A* (37.2-46.3) % RDW 18.0 H (11.5-14.5) % Lymphocytes # (Manual) 0.68 L (0.90-5.00) X 10*3/uL Monocytes # (Manual) 0.11 L (0.20-1.00) X 10*3/uL NRBC/100 WBC Diff 0.02 H (0.00-0.01) X 10*3/uL Sodium (137-145) mmol/L Chloride (98-107) mmol/L Carbon Dioxide (22-30) mmol/L BUN (7-17) mg/dL Creatinine (0.52-1.04) mg/dL Glucose (74-99) mg/dL POC Glucose (mg/dL) 121 H (70-110) mg/dL Calcium (8.4-10.2) mg/dL Total Protein (6.3-8.2) g/dL Albumin (3.5-5.0) g/dL Crossmatch See Detail 12/25/24 12/25/24 12/26/24 Range/Units 16:48 20:51 04:31 WBC (4.50-10.00) X 10*3/uL RBC (4.10-5.20) X 10*6/uL Hgb (12.0-15.0) g/dL Hct (37.2-46.3) % RDW (11.5-14.5) % Lymphocytes # (Manual) (0.90-5.00) X 10*3/uL Monocytes # (Manual) (0.20-1.00) X 10*3/uL NRBC/100 WBC Diff (0.00-0.01) X 10*3/uL Sodium 126 L (137-145) mmol/L Chloride 96 L (98-107) mmol/L Carbon Dioxide 20 L (22-30) mmol/L BUN 47 H (7-17) mg/dL Creatinine 1.47 H (0.52-1.04) mg/dL Glucose 277 H (74-99) mg/dL POC Glucose (mg/dL) 189 H 233 H (70-110) mg/dL Calcium 8.3 L (8.4-10.2) mg/dL Total Protein 4.6 L (6.3-8.2) g/dL Albumin 2.2 L (3.5-5.0) g/dL Crossmatch 12/26/24 Range/Units 06:12 WBC (4.50-10.00) X 10*3/uL RBC (4.10-5.20) X 10*6/uL Hgb (12.0-15.0) g/dL Hct (37.2-46.3) % RDW (11.5-14.5) % Lymphocytes # (Manual) (0.90-5.00) X 10*3/uL Monocytes # (Manual) (0.20-1.00) X 10*3/uL NRBC/100 WBC Diff (0.00-0.01) X 10*3/uL Sodium (137-145) mmol/L Chloride (98-107) mmol/L Carbon Dioxide (22-30) mmol/L BUN (7-17) mg/dL Creatinine (0.52-1.04) mg/dL Glucose (74-99) mg/dL POC Glucose (mg/dL) 320 H (70-110) mg/dL Calcium (8.4-10.2) mg/dL Total Protein (6.3-8.2) g/dL Albumin (3.5-5.0) g/dL Crossmatch Microbiology - Last 24 Hours (Table) 12/24/24 16:47 Blood Culture Gram Stain - Preliminary Blood Blood Culture - Preliminary Molecular ID Assessment and Plan Plan: Assessment: 1. Acute kidney injury secondary to septic ATN. Baseline creatinine near 0.8 and peaked at 1.68 this admission -1.[address] scan from December 24, 2024 showed no evidence of hydronephrosis. 2. Multiple myeloma maintained on chemotherapy. 3. Acute diverticulitis with perforation being followed by surgery. CT pending. 4. Acute blood loss anemia status post blood transfusion this admission. Status post IV DDAVP. 5. Metabolic acidosis secondary to acute kidney injury and IV fluids. Better with bicarb drip. 6. Hyponatremia secondary to acute kidney injury. Also component of poor so lute intake. Hypovolemic. 7. E. coli bacteremia on antibiotics. Plan: Maintain bicarb drip for now. IV DDAVP x 1 dose today. Avoid nephrotoxins. Continue to monitor renal function and urine output. Cleared for PICC line placement for TPN in the dominant arm - not placed due to bacteremia. Awaits transfer to another facility.
[2024-12-26] MEDS: IOPAMIDOL CONTRAST (ORAL USE) VIAL PO PRN (10:57)
[2024-12-26 10:59] LABS: Basophils # (M) 0.06 X 10*3/uL (0.00-0.10); Eosinophils # (M) 0.12 X 10*3/uL (0.04-0.35); HCT 21.6 % (37.2-46.3); HGB 7.4 g/dL (12.0-15.0); Lymphocytes # (M) 0.35 X 10*3/uL (0.90-5.00); MCHC 34.3 g/dL (32.0-37.0); MCV 90.4 FL (80.0-97.0); Mean Platelet Volume 11.5 FL (9.5-12.2); Metamyelocytes % 2 % (0-0); Monocytes # (M) 0.15 X 10*3/uL (0.20-1.00); Myelocytes % 4 % (0-0); NRBC Per 100 WBC 0 X 10*3/uL (0.00-0.01); Neutrophils # (M) 2.09 X 10*3/uL (1.80-7.70); Neutrophils % (M) 71 %; Platelet Count 114 X 10*3/uL (140-440); RBC 2.39 X 10*6/uL (4.10-5.20); RDW 17.8 % (11.5-14.5); WBC 2.95 X 10*3/uL (4.50-10.00)
[2024-12-26 11:37] LABS: Glucose,Whole Blood 314 mg/dL (70-110)
--- NOTE | 2024-12-26 13:06 | CT ---
EXAMINATION TYPE: CT abdomen pelvis w con CT DLP: 1158.1 mGycm, Automated exposure control for dose reduction was used. DATE OF EXAM: 12/26/2024 12:46 PM COMPARISON: CT abdomen 12/24/2024, PET CT 10/23/2024, CT chest abdomen and pelvis 10/22/2024 CLINICAL INDICATION:Female, 79 years old with history of abdominal pain; abdominal pain TECHNIQUE: Standard CT of the abdomen and pelvis following the administration of 80 cc of Isovue 30 0 IV contrast material. Enteric contrast was administered. Coronal and sagittal reformats were perfor med. FINDINGS: LOWER CHEST: Cardiomegaly. Small bilateral pleural effusions with associated atelectasis. Median ster notomy wires. Aortic valvular calcifications. Coronary calcifications. ABDOMEN LIVER: Unremarkable GALLBLADDER AND BILE DUCTS: Cholelithiasis. No biliary ductal dilatation. PANCREAS: Lipomatous pseudohypertrophy changes. SPLEEN: Unremarkable. ADRENAL GLANDS: Unremarkable. KIDNEYS AND URETERS: No evidence of hydronephrosis or renal calculus. The kidneys enhance symmetrical ly. Bilateral renal cysts redemonstrated. Contrast is demonstrated within both collecting systems on the delayed phase. PELVIS BLADDER: Unremarkable REPRODUCTIVE: Unremarkable. ABDOMEN & PELVIS STOMACH AND BOWEL: Stomach and duodenum are unremarkable. Enteric contrast reaches the rectum. No ext ravasation of enteric contrast identified. The appendix is not visualized. Sigmoid diverticula with w all thickening and extraluminal gas. No evidence of bowel obstruction. PERITONEUM: Small amount of pneumoperitoneum throughout the abdomen again. Small volume ascites throu ghout the abdomen and pelvis. Most prominent within the bilateral paracolic gutters. There is an air- fluid collection within the central lower abdomen mesentery measuring 8.0 x 5.1 cm (series 201, image 60). There is surrounding bowel. Additional extraluminal foci of gas remain from the sigmoid colon t racking towards the central mesenteric fluid collection (series 201, image 69). Diffuse mesenteric ed lilia. VASCULATURE: Mild atherosclerotic calcifications are present throughout the abdominal aorta and its b ranches. No evidence of aortic aneurysm. MUSCULOSKELETAL: No acute osseous abnormalities. Lytic/destructive lesion the L2 vertebral body exten ding into the left outer quadrants of process again. Moderate pathologic compression fracture with no significant retropulsion. Additional multiple small lytic lesions in the sacrum. Remote injury to th e pubic symphysis redemonstrated. Multilevel degenerative disc disease. LYMPH NODES: No evidence for lymphadenopathy. SOFT TISSUE/ABDOMINAL WALL: Mild diffuse anasarca. Small fat filled epigastric ventral wall hernia. S mall umbilical hernia containing pneumoperitoneum. IMPRESSION: 1. Acute sigmoid diverticulitis with perforation demonstrating again pneumoperitoneum. There is an ce ntral mesenteric 8.0 cm gas/fluid collection most consistent with an abscess. 2. Small bilateral ascites throughout the abdomen pelvis with diffuse anasarca. 3. Cholelithiasis. 4. Multiple lytic lesions involving L2 and the sacrum with moderate compression fracture of L2 again. Consistent with reported multiple myeloma. 5. Small bilateral pleural effusions. A Red level critical message alert has been initiated for Eliezer Rodriges via the [employer] Results System on 12/26/2024 1:03 PM. This message alert has been sent to Eliezer Rodriges via t [employer] preferences provided by the clinician for the receipt of Radiology Critical Findings. Message ID [id number]. [facility], , 12/26/2024 1:04 PM
--- NOTE | 2024-12-26 13:47 | P.GSCN ---
History of Present Illness Consult date: 12/26/24 Reason for Consult: IVC filter History of present illness: 79 year old female with history of multiple myeloma, left lower extremity DVT presented to the hospital after having abdominal pain, an outpatient CT scan that demonstrated free air. Upon evaluation it was noted that she had decreased blood count and her oral anticoagulation was held. Due to holding blood thinners and possible need for surgery vascular surgery consulted for possible IVC filter. She underwent a repeat CT scan today which demonstrated abscess and free air. Review of Systems All systems: negative (what is mentioned in the PMH) Past Medical History Past Medical History: Coronary Artery Disease (CAD), Cancer, Diabetes Mellitus, Hyperlipidemia, Hypertension, Thyroid Disorder Additional Past Medical History / Comment(s): Chronic neck pain from compressed disks in her neck, cancer back History of Any Multi-Drug Resistant Organisms: None Reported Past Surgical History: Section, Orthopedic Surgery Additional Past Surgical History / Comment(s): Left knee replacement, bypass Past Psychological History: No Psychological Hx Reported Smoking Status: Never smoker Past Alcohol Use History: None Reported Past Drug Use History: None Reported - Past Family History Father Family Medical History: Myocardial Infarction ([place]) Additional Family Medical History / Comment(s): at 70 years old from myocardial infarction-suspected. Mother Additional Family Medical History / Comment(s): from "enlarged heart" at 87 years old Brother(s) Family Medical History: Coronary Artery Disease (CAD) Additional Family Medical History / Comment(s): Multiple stents placed Son(s) Family Medical History: CVA/TIA Additional Family Medical History / Comment(s): from stroke at 41 years old Medications and Allergies Home Medications Medication Instructions Recorded Confirmed Type Aspirin EC [Ecotrin Low Dose] 81 mg PO HS #30 tab 11/01/20 12/24/24 Rx Levothyroxine Sodium [Synthroid] 112 mcg PO AC-BRKFST #30 tab 11/01/20 12/24/24 Rx Dulaglutide [Trulicity] 0.75 mg SQ MO 11/09/24 12/24/24 History dexAMETHasone [Decadron] 20 mg PO MO 11/09/24 12/24/24 History traMADol HCL 25 mg PO Q8H PRN 11/09/24 12/24/24 History Acyclovir [Zovirax] 400 mg PO BID 12/16/24 12/24/24 History Bortezomib 1 dose INJ WE 12/16/24 12/24/24 History Fluconazole [Diflucan] 100 mg PO DAILY 12/16/24 12/24/24 History Lenalidomide 15 mg PO DIRECTED 12/16/24 12/24/24 History Ondansetron Odt [Zofran ODT] 4 mg PO Q8HR PRN 12/16/24 12/24/24 History Pantoprazole [Protonix] 40 mg PO DAILY #30 tab 12/16/24 12/24/24 Rx Sulfamethox-Tmp 800-160Mg [Bactrim 1 tab PO MOWEFR 12/16/24 12/24/24 History DS 800-160 mg] Valsartan [Diovan] 80 mg PO HS 12/16/24 12/24/24 History atenoloL [Tenormin] 25 mg PO HS 12/16/24 12/24/24 History Apixaban [Eliquis Starter Pack See Taper PO DIRECTED 12/24/24 12/24/24 History (for VTE)] Collagenase [Santyl Ointment] 1 applic TOPICAL DIRECTED 12/24/24 12/24/24 History Sodium Bicarbonate Tab 650 mg PO DIRECTED 12/24/24 12/24/24 History Acetaminophen Tab [Tylenol] 650 mg PO Q6HR PRN tab 12/25/24 Rx INSULIN LISPRO (HumaLOG) [HumaLOG] 0 unit SQ ACHS each 12/25/24 Rx Piperacillin-Tazobactam [Zosyn] 3.375 gm IVPB Q8H each 12/25/24 Rx atenoloL [Tenormin] 25 mg PO HS tab 12/25/24 Rx Allergies Allergy/AdvReac Type Severity Reaction Status Date / Time epinephrine AdvReac Intermediate Rapid Verified 12/24/24 18:03 Heart Rate Surgical - Exam Vital Signs Temp Pulse Resp BP Pulse Ox 97.5 F L 66 18 119/82 98 12/24/24 15:35 12/24/24 15:35 12/24/24 15:35 12/24/24 15:35 12/24/24 15:35 Patient Seen Date: 12/26/24 Patient Seen Time: 12:30 - General well developed, moderate distress - Eyes PERRL - ENT normal pinna, normal nares - Respiratory normal expansion, normal respiratory effort - Cardiovascular Rhythm: regular - Abdomen Abdomen: tender, guarding, rigid, rebound - Integumentary no rash, no growths - Psychiatric oriented to time, oriented to person, speech is normal palpable DP pulses bilaterally minimal edema Results - Labs 12/26/24 04:31 12/26/24 04:31 Abnormal Lab Results - Last 24 Hours (Table) 12/25/24 12/25/24 12/25/24 Range/Units 11:12 16:48 20:51 WBC (4.50-10.00) X 10*3/uL RBC (4.10-5.20) X 10*6/uL Hgb (12.0-15.0) g/dL Hct (37.2-46.3) % RDW (11.5-14.5) % Plt Count (140-440) X 10*3/uL Lymphocytes # (Manual) (0.90-5.00) X 10*3/uL Monocytes # (Manual) (0.20-1.00) X 10*3/uL Sodium (137-145) mmol/L Chloride (98-107) mmol/L Carbon Dioxide (22-30) mmol/L BUN (7-17) mg/dL Creatinine (0.52-1.04) mg/dL Glucose (74-99) mg/dL POC Glucose (mg/dL) 189 H 233 H (70-110) mg/dL Calcium (8.4-10.2) mg/dL Total Protein (6.3-8.2) g/dL Albumin (3.5-5.0) g/dL Triglycerides (0.00-149.00) mg/dL Crossmatch See Detail 12/26/24 12/26/24 12/26/24 Range/Units 04:31 04:31 06:12 WBC 2.95 L (4.50-10.00) X 10*3/uL RBC 2.39 L (4.10-5.20) X 10*6/uL Hgb 7.4 L (12.0-15.0) g/dL Hct 21.6 L (37.2-46.3) % RDW 17.8 H (11.5-14.5) % Plt Count 114 L (140-440) X 10*3/uL Lymphocytes # (Manual) 0.35 L (0.90-5.00) X 10*3/uL Monocytes # (Manual) 0.15 L (0.20-1.00) X 10*3/uL Sodium 126 L (137-145) mmol/L Chloride 96 L (98-107) mmol/L Carbon Dioxide 20 L (22-30) mmol/L BUN 47 H (7-17) mg/dL Creatinine 1.47 H (0.52-1.04) mg/dL Glucose 277 H (74-99) mg/dL POC Glucose (mg/dL) 320 H (70-110) mg/dL Calcium 8.3 L (8.4-10.2) mg/dL Total Protein 4.6 L (6.3-8.2) g/dL Albumin 2.2 L (3.5-5.0) g/dL Triglycerides 422.00 H (0.00-149.00) mg/dL Crossmatch 12/26/24 Range/Units 11:36 WBC (4.50-10.00) X 10*3/uL RBC (4.10-5.20) X 10*6/uL Hgb (12.0-15.0) g/dL Hct (37.2-46.3) % RDW (11.5-14.5) % Plt Count (140-440) X 10*3/uL Lymphocytes # (Manual) (0.90-5.00) X 10*3/uL Monocytes # (Manual) (0.20-1.00) X 10*3/uL Sodium (137-145) mmol/L Chloride (98-107) mmol/L Carbon Dioxide (22-30) mmol/L BUN (7-17) mg/dL Creatinine (0.52-1.04) mg/dL Glucose (74-99) mg/dL POC Glucose (mg/dL) 314 H (70-110) mg/dL Calcium (8.4-10.2) mg/dL Total Protein (6.3-8.2) g/dL Albumin (3.5-5.0) g/dL Triglycerides (0.00-149.00) mg/dL Crossmatch Microbiology - Last 24 Hours (Table) 12/24/24 16:47 Blood Culture Gram Stain - Preliminary Blood Blood Culture - Preliminary Escherichia coli Molecular ID Diabetes panel 12/26/24 Range/Units 04:31 Sodium 126 L (137-145) mmol/L Potassium 3.9 (3.5-5.1) mmol/L Chloride 96 L (98-107) mmol/L Carbon Dioxide 20 L (22-30) mmol/L BUN 47 H (7-17) mg/dL Creatinine 1.47 H (0.52-1.04) mg/dL Glucose 277 H (74-99) mg/dL Calcium 8.3 L (8.4-10.2) mg/dL AST 16 (14-36) U/L ALT 15 (4-34) U/L Alkaline Phosphatase 60 (38-126) U/L Total Protein 4.6 L (6.3-8.2) g/dL Albumin 2.2 L (3.5-5.0) g/dL Triglycerides 422.00 H (0.00-149.00) mg/dL Calcium panel 12/26/24 Range/Units 04:31 Calcium 8.3 L (8.4-10.2) mg/dL Ionized Calcium Krunal 4.6 (4.5-5.3) mg/dL Phosphorus 3.8 (2.5-4.5) mg/dL Albumin 2.2 L (3.5-5.0) g/dL Pituitary panel 12/26/24 Range/Units 04:31 Sodium 126 L (137-145) mmol/L Potassium 3.9 (3.5-5.1) mmol/L Chloride 96 L (98-107) mmol/L Carbon Dioxide 20 L (22-30) mmol/L BUN 47 H (7-17) mg/dL Creatinine 1.47 H (0.52-1.04) mg/dL Glucose 277 H (74-99) mg/dL Calcium 8.3 L (8.4-10.2) mg/dL Adrenal panel 12/26/24 Range/Units 04:31 Sodium 126 L (137-145) mmol/L Potassium 3.9 (3.5-5.1) mmol/L Chloride 96 L (98-107) mmol/L Carbon Dioxide 20 L (22-30) mmol/L BUN 47 H (7-17) mg/dL Creatinine 1.47 H (0.52-1.04) mg/dL Glucose 277 H (74-99) mg/dL Calcium 8.3 L (8.4-10.2) mg/dL Total Bilirubin 1.2 (0.2-1.3) mg/dL AST 16 (14-36) U/L ALT 15 (4-34) U/L Alkaline Phosphatase 60 (38-126) U/L Total Protein 4.6 L (6.3-8.2) g/dL Albumin 2.2 L (3.5-5.0) g/dL Assessment and Plan Assessment: Perforated diverticulitis with abscess Pneumoperitonitis Acute left lower extremity DVT Acute on chronic renal insufficiency Multiple myeloma on chemotherapy Metabolic acidosis Plan: Reviewed images and discussed with patients family If going to take for surgery then would recommend IVC filter due to inability to give blood thinners Patient appears to be accepted for transfer to [facility] Will discuss with general surgery and IM for timing of a surgery if needed.
[2024-12-26] MEDS ORDERED: fentaNYL (PF) 50 MCG/ML 2 ML AMP ONE (15:31)
[2024-12-26] MEDS ORDERED: MIDAZOLAM 2 MG/2 ML VIAL ONE (15:31)
[2024-12-26] MEDS ORDERED: SUCCINYLCHOLINE CHLORIDE 200 MG/10 ML VIAL IV ONE (15:31)
[2024-12-26] MEDS ORDERED: ROCURONIUM 10 MG/ML (5 ML VIAL) IV ONE (15:31)
[2024-12-26] MEDS ORDERED: PROPOFOL 10 MG/ML 20 ML VIAL IV ONE (15:31)
[2024-12-26] MEDS ORDERED: ALBUMIN HUMAN 5% (25gm) 500 ML VIAL IVPB ONE (15:31)
[2024-12-26] MEDS ORDERED: PHENYLEPHRINE 10 MG/ML VIAL ONE (15:31)
[2024-12-26] MEDS: IV FLUID CONTINUATION 1,000 ML IV ONE ×2 (15:37)
[2024-12-26] MEDS: IV FLUID CONTINUATION 700 ML IV ONE (15:37)
--- NOTE | 2024-12-26 15:48 | P.PN ---
Subjective Progress Note Date: 12/26/24 Principal diagnosis: Reason for follow-up is bacteremia perforated diverticulitis and abscess Patient is a 79-year-old female with a past medical history significant for Coronary Artery Disease (CAD), Cancer, Diabetes Mellitus, Hyperlipidemia, Hypertension, Thyroid Disorder presenting to the hospital for evaluation of abnormal CT that was done for abdominal pain with concern for perforated sigmoid diverticulitis did have a positive blood culture with E. coli probably this consultation. On today's evaluation that is 12/26/2024, patient did not have any fever and d enies any chills, patient is breathing comfortably on room air, patient with no chest pain or cough patient did have abdominal pain but controlled with pain medication some nausea but no vomiting. Patient white count is 2.95, creat is 1.[address] that shows evidence of diverticulitis and abscess Objective - Vital Signs Vital signs: Vital Signs Temp 97.7 F 12/26/24 07:03 Pulse 66 12/26/24 07:03 Resp 16 12/26/24 07:03 BP 116/71 12/26/24 07:03 Pulse Ox 97 12/26/24 07:03 FiO2 Intake & Output 12/25/24 12/26/24 12/26/24 18:59 06:59 18:59 Intake Total 310 Output Total 200 250 Balance 110 -250 Weight 63.503 kg Intake: Blood Product 310 Rc As-1 Unit 310 [id number] Output: Urine 200 250 Other: Voiding Method External Catheter External Catheter External Catheter # Bowel Movements 1 1 1 - Exam GENERAL DESCRIPTION: An elderly female lying in bed in no distress RESPIRATORY SYSTEM: Unlabored breathing , decreased breath sounds at bases HEART: S1 S2 regular rate and rhythm , ABDOMEN: Soft , mild tenderness EXTREMITIES: No edema feet - Labs CBC & Chem 7: 12/26/24 04:31 12/26/24 04:31 Labs: Abnormal Lab Results - Last 24 Hours (Table) 12/25/24 12/25/24 12/25/24 Range/Units 11:12 16:48 20:51 WBC (4.50-10.00) X 10*3/uL RBC (4.10-5.20) X 10*6/uL Hgb (12.0-15.0) g/dL Hct (37.2-46.3) % RDW (11.5-14.5) % Plt Count (140-440) X 10*3/uL Lymphocytes # (Manual) (0.90-5.00) X 10*3/uL Monocytes # (Manual) (0.20-1.00) X 10*3/uL Sodium (137-145) mmol/L Chloride (98-107) mmol/L Carbon Dioxide (22-30) mmol/L BUN (7-17) mg/dL Creatinine (0.52-1.04) mg/dL Glucose (74-99) mg/dL POC Glucose (mg/dL) 189 H 233 H (70-110) mg/dL Calcium (8.4-10.2) mg/dL Total Protein (6.3-8.2) g/dL Albumin (3.5-5.0) g/dL Triglycerides (0.00-149.00) mg/dL Crossmatch See Detail 12/26/24 12/26/24 12/26/24 Range/Units 04:31 04:31 06:12 WBC 2.95 L (4.50-10.00) X 10*3/uL RBC 2.39 L (4.10-5.20) X 10*6/uL Hgb 7.4 L (12.0-15.0) g/dL Hct 21.6 L (37.2-46.3) % RDW 17.8 H (11.5-14.5) % Plt Count 114 L (140-440) X 10*3/uL Lymphocytes # (Manual) 0.35 L (0.90-5.00) X 10*3/uL Monocytes # (Manual) 0.15 L (0.20-1.00) X 10*3/uL Sodium 126 L (137-145) mmol/L Chloride 96 L (98-107) mmol/L Carbon Dioxide 20 L (22-30) mmol/L BUN 47 H (7-17) mg/dL Creatinine 1.47 H (0.52-1.04) mg/dL Glucose 277 H (74-99) mg/dL POC Glucose (mg/dL) 320 H (70-110) mg/dL Calcium 8.3 L (8.4-10.2) mg/dL Total Protein 4.6 L (6.3-8.2) g/dL Albumin 2.2 L (3.5-5.0) g/dL Triglycerides 422.00 H (0.00-149.00) mg/dL Crossmatch 12/26/24 Range/Units 11:36 WBC (4.50-10.00) X 10*3/uL RBC (4.10-5.20) X 10*6/uL Hgb (12.0-15.0) g/dL Hct (37.2-46.3) % RDW (11.5-14.5) % Plt Count (140-440) X 10*3/uL Lymphocytes # (Manual) (0.90-5.00) X 10*3/uL Monocytes # (Manual) (0.20-1.00) X 10*3/uL Sodium (137-145) mmol/L Chloride (98-107) mmol/L Carbon Dioxide (22-30) mmol/L BUN (7-17) mg/dL Creatinine (0.52-1.04) mg/dL Glucose (74-99) mg/dL POC Glucose (mg/dL) 314 H (70-110) mg/dL Calcium (8.4-10.2) mg/dL Total Protein (6.3-8.2) g/dL Albumin (3.5-5.0) g/dL Triglycerides (0.00-149.00) mg/dL Crossmatch Microbiology - Last 24 Hours (Table) 12/24/24 16:47 Blood Culture Gram Stain - Preliminary Blood Blood Culture - Preliminary Escherichia coli Molecular ID Assessment and Plan (1) Perforation of sigmoid colon due to diverticulitis Current Visit: Yes Status: Acute Code(s): K57.20 - DVTRCLI OF LG INT W PERFORATION AND ABSCESS W/O BLEEDING SNOMED Code(s): 9365665361821181 (2) Bacteremia Current Visit: Yes Status: Acute Code(s): R78.81 - BACTEREMIA SNOMED Code(s): 9041982 Plan: 1patient with E. coli bacteremia source likely abdominal in this patient with evidence of abnormal CT with free air concerning for perforated diverticulitis but did not mention any abscess, patient did have a repeat CT that has been suggestive of perforated diverticulitis and abscess and surgery is taking the patient to the OR for surgery this afternoon 2patient will be treated with Zosyn 3.37 every 8 hours and monitor clinical course closely Dictation was produced using [employer] dictation software. please excuse any grammatical, word or spelling errors.
--- NOTE | 2024-12-26 16:03 | P.ANPRN ---
Procedure Note - Anesthesia - Invasive Line Right Central Line Time Out Performed: Yes Date of Procedure: 12/26/24 Time of Procedure: 15:10 Location of Patient: PreOp Preparation: Sterile Prep, Sterile Dressing Central Line Location: Internal Jugular Ultrasound Used: Yes Purpose - Visualization and Identification of Vasculature: Yes Image Stored and Saved: Yes Narrative: Invasive line placement per sterile protocol utilized.
--- NOTE | 2024-12-26 16:58 | P.OP ---
Date of Procedure: 12/26/24 Preoperative Diagnosis: Diverticulitis with perforation and abscess Postoperative Diagnosis: Diverticulitis with perforation and abscess Procedure(s) Performed: Sigmoid colectomy Drainage of interloop abscess Proximal omentectomy Anesthesia: NORMA Surgeon: Eliezer Rodriges Estimated Blood Loss (ml): 100 Pathology: other (Sigmoid colon) Condition: critical Disposition: ICU Indications for Procedure: This is a 79-year-old female who is undergoing active chemotherapy treatment for multiple myeloma. Patient also has a new DVT where she was on Eliquis therapy. Patient developed diverticulitis with contained perforation. The patient was to be transferred to [facility]. Patient's CAT scan this morning shows progression of the perforation with a interloop abscess. Patient was taken to surgery due to these new findings. Description of Procedure: The patient is placed on the operative table in the supine position. She received general endotracheal tube anesthesia. Her abdomen is prepped and draped you sterile fashion. The skin incised in the midline. I then use electrocautery subcutaneous tissue was divided. The fascia was then retracted using the w Bookwalter retractor. There appeared to be evidence of sigmoid diverticulitis. The omentum was peeled out of the pelvis and a pelvic abscess was identified. This was aspirated. The sigmoid perforation was visualized. At this point the sigmoid colon was transected proximally. And then using the LigaSure device the mesentery of the bowel was divided. The rectum was then transected with a contour stapler. Specimen to pathology. The left colon was mobilized and the splenic flexure was taken down using electrocautery. The colon was mobilized to a suitable length. To bring out a colostomy. At this point the abdomen was then irrigated with 5 L of normal saline. A MILADIS drain was placed in the pelvis and brought out through the right abdominal wall. A portion of the rich mentum appeared to be nonviable this was dissected LigaSure and sent to pathology. The colostomy was then brought up through the left abdominal wall. The fascia then closed looped #1 PDS suture. Skin was closed giorgio. The colostomy matured with 3-0 Vicryl suture. Th sterile dressing and the Closs appliance was applied. The patient was sent to the ICU on the ventilator in critical condition. The case was discussed with Dr. Varela the dye house hand. He will manage her in the ICU. The findings were then discussed with the family.
[2024-12-26] MEDS ORDERED: HYDROmorphone 1 MG/ML 1 ML SYRINGE IVP PRN (16:59)
[2024-12-26] MEDS: PHENYLEPHRINE 40 MG in SODIUM CHLORIDE 0.9% 250 ML IV SCH (17:10)
[2024-12-26 17:12] LABS: Glucose,Whole Blood 200 mg/dL (70-110)
[2024-12-26] MEDS ORDERED: MORPHINE SULFATE 4 MG/ML SYRINGE IV PRN (17:29)
--- NOTE | 2024-12-26 17:59 | XR ---
EXAMINATION TYPE: XR chest 1V portable DATE OF EXAM: 12/26/2024 5:51 PM COMPARISON: None. CLINICAL INDICATION: Female, 79 years old with history of Tube placement, Post Op CABG TECHNIQUE: Single view of the chest is submitted. FINDINGS: Endotracheal tube, NG tube, SG catheter, mediastianal drains and chest tubes are appropriately placed . Left atrial clip in place as well. NG tube is approximately 1 cm from the nevin. Post operative changes of CABG. No sizeable pneumothorax. Scattered Pleural-parencymal opacities may reflect atelectasis. The heart is mildly enlarged. IMPRESSION: 1. Post operative changes of CABG. [facility], , 12/26/2024 5:56 PM
[2024-12-26 19:02] LABS: ALT 11 U/L (4-34); AST 13 U/L (14-36); African American GFR (CKD) 54 (>60 ml/min/1.73 sqM); Albumin 1.9 g/dL (3.5-5.0); Alkaline Phosphatase 37 U/L (38-126); Anion Gap 7 mmol/L; Blood Urea Nitrogen 34 mg/dL (7-17); Carbon Dioxide 22 mmol/L (22-30); Chloride 101 mmol/L (98-107); Glucose 171 mg/dL (74-99); Non-African American GFR(CKD) 47 (>60 ml/min/1.73 sqM); Potassium 3.4 mmol/L (3.5-5.1); Sodium 130 mmol/L (137-145); Total Bilirubin 0.8 mg/dL (0.2-1.3); Total Protein 3.5 g/dL (6.3-8.2)
[2024-12-26] MEDS: POTASSIUM CHLORIDE 20 MEQ in WATER FOR INJECTION 1 100ML.BAG IVPB SCH (19:52)
[2024-12-26] MEDS: MAGNESIUM SULFATE-D5W PMX 1 GM in DEXTROSE/WATER 1 100ML.BAG IVPB ONE (19:52)
[2024-12-26] MEDS: CHLORHEXIDINE GLUCONATE 15 ML CUP MUCOUS MEM SCH (19:52)
[2024-12-26] MEDS: IPRATROPIUM-ALBUTEROL 3 ML NEB INHALATION SCH (20:40)
[2024-12-26 21:43] LABS: Glucose,Whole Blood 333 mg/dL (70-110)
[2024-12-26 23:44] LABS: Anisocytosis Slight; HCT 29.2 % (34.0-46.0); HGB 9.5 gm/dL (11.4-16.0); Hypochromasia Slight; MCH 29.8 pg (25.0-35.0); MCHC 32.5 g/dL (31.0-37.0); MCV 91.6 fL (80.0-100.0); Mean Platelet Volume 9.7; RBC 3.19 m/uL (3.80-5.40); RDW 16.8 % (11.5-15.5); WBC 19.4 k/uL (3.8-10.6)
[2024-12-26 23:57] LABS: Platelet Count 107 k/uL (150-450)
[2024-12-27 04:27] LABS: ABG Base Excess 0.1 mmol/L; ABG HCO3 23 mmol/L (21-25); ABG Oxygen Saturation 99.9 % (94-97); ABG PCO2 31 mmHg (35-45); ABG PH 7.49 (7.35-7.45); ABG PO2 175 mmHg (83-108); ABG TCO2 24 mmol/L (19-24)
[2024-12-27 04:28] LABS: Allen Test Performed? No
[2024-12-27 04:58] LABS: ALT 11 U/L (4-34); AST 14 U/L (14-36); African American GFR (CKD) 52 (>60 ml/min/1.73 sqM); Albumin 1.8 g/dL (3.5-5.0); Alkaline Phosphatase 44 U/L (38-126); Anion Gap 4 mmol/L; Blood Urea Nitrogen 36 mg/dL (7-17); Calcium 7.4 mg/dL (8.4-10.2); Carbon Dioxide 22 mmol/L (22-30); Chloride 101 mmol/L (98-107); Glucose 316 mg/dL (74-99); Magnesium 1.8 mg/dL (1.6-2.3); Non-African American GFR(CKD) 45 (>60 ml/min/1.73 sqM); Potassium 4.2 mmol/L (3.5-5.1); Sodium 127 mmol/L (137-145); Total Bilirubin 1.1 mg/dL (0.2-1.3); Total Protein 3.5 g/dL (6.3-8.2)
[2024-12-27 05:36] LABS: Anisocytosis Slight; HCT 26.3 % (34.0-46.0); HGB 8.7 gm/dL (11.4-16.0); MCH 29.6 pg (25.0-35.0); MCV 89.7 fL (80.0-100.0); Mean Platelet Volume 10.4; Platelet Count 73 k/uL (150-450); Poikilocytosis Slight; RBC 2.93 m/uL (3.80-5.40); RDW 17.7 % (11.5-15.5); WBC 14.7 k/uL (3.8-10.6)
[2024-12-27 05:58] LABS: Glucose,Whole Blood 363 mg/dL (70-110)
[2024-12-27 07:04] LABS: Band Neutrophils % 26 %; Lymphocytes # (M) 1.03 k/uL (1.0-4.8); Metamyelocytes # (M) 0.15 k/uL (0); Metamyelocytes % 1 %; Monocytes # (M) 0.29 k/uL (0-1.0); Neutrophils % (M) 66 %; Nucleated Red Blood Cells 0 /100 WBC (0-0); Total Cells Counted 200
[2024-12-27 07:07] LABS: Dohle Bodies Present
[2024-12-27 07:09] LABS: Toxic Vacuolation Present
--- NOTE | 2024-12-27 07:48 | XR ---
EXAMINATION TYPE: XR chest 1V portable DATE OF EXAM: 12/27/2024 4:35 AM COMPARISON: Multiple radiographs, with the most recent on 12/26/2024 TECHNIQUE: XR chest 1V portable Portable AP radiograph of the chest. CLINICAL INDICATION:Female, 79 years old with history of Tube placement; FINDINGS: Patient is rotated which limits evaluation. Lungs/Pleura: There is no evidence of pleural effusion, focal consolidation, or pneumothorax. Pulmonary vascularity: Pulmonary vascular congestion. Heart/mediastinum: Cardiomediastinal silhouette is enlarged and stable. Left atrial appendage occlusi on devices present. Musculoskeletal: No acute osseous pathology. Midline sternotomy wires are noted and stable. Other findings: Cholelithiasis within the right upper quadrant. Lines/Tubes: Endotracheal tube with distal tip 2.9 cm above the nevin Nasogastric tube with its distal tip and side-port projecting under the diaphragm and projecting over the gastric lumen. Right IJ central venous catheter distal tip in the right atrium. IMPRESSION: 1. Post cardiac surgical changes with pulmonary vascular congestion. 2. Stable support lines and tubes. [facility], , 12/27/2024 7:46 AM
--- NOTE | 2024-12-27 09:56 | P.PN ---
Subjective Patient is seen in follow-up for acute kidney injury. Renal function better. IV fluids changed from bicarb drip to normal saline this morning. On Levophed. Underwent sigmoid colectomy and drainage of abscess yesterday. Son present at bedside. Vital signs are stable. On vasopressor support. General: Resting in bed. HEENT: Intubated. LUNGS: Scattered rhonchi. HEART: Rate and Rhythm are regular. ABDOMEN: Colostomy noted. And MILADIS drain EXTREMITITES: Trace edema. Objective - Vital Signs Vital signs: Vital Signs Temp 98.0 F 12/27/24 04:00 Pulse 84 12/27/24 09:14 Resp 22 12/27/24 07:00 BP 107/32 12/27/24 06:45 Pulse Ox 100 12/27/24 07:00 FiO2 40 12/27/24 08:58 Intake & Output 12/26/24 12/27/24 12/27/24 18:59 06:59 18:59 Intake Total 1500 2117.417 110.646 Output Total 280 575 30 Balance 1220 1542.417 80.646 Weight 78.6 kg Intake: IV 1500 1100 100 Dextrose 5% in Water 1, 1100 100 000 ml @ 100 mls/hr IV . [id number] [facility] with Sodium Bicarb (1 Meq/ml) 150 ml Rx#:[id number] Intake, IV Titration 707.417 10.646 Amount Magnesium Sulfate-D5w Pmx 100 1 gm In Dextrose/Water 1 100ml.bag @ 100 mls/hr IVPB ONCE ONE Rx#: [id number] Phenylephrine 40 mg In 320.898 10.646 Sodium Chloride 0.9% 250 ml @ 1 MCG/KG/MIN 24.195 mls/hr IV .[id number] [facility] Rx #:[id number] Potassium Chloride 20 meq 200 In Water For Injection 1 100ml.bag @ 50 mls/hr IVPB Q2H [facility] Rx#: [id number] propofoL 1,000 mg In 86.519 Empty Bag 1 bag @ 15 MCG/ KG/MIN 5.715 mls/hr IV . [id number] [facility] Rx#:[id number] Blood Product 0 310 Rc Irr As1 Unit 0 310 [id number] Output: Drainage 255 Abdomen 255 Urine 230 320 30 Estimated Blood Loss 50 Other: Voiding Method External Catheter Indwelling Catheter # Bowel Movements 1 ABP, PAP, CO, CI - Last Documented Arterial Blood Pressure 114/49 - Labs CBC & Chem 7: 12/27/24 04:30 12/27/24 04:30 Labs: Abnormal Lab Results - Last 24 Hours (Table) 12/25/24 12/26/24 12/26/24 Range/Units 11:12 04:31 04:31 WBC 2.95 L (4.50-10.00) X 10*3/uL RBC 2.39 L (4.10-5.20) X 10*6/uL Hgb 7.4 L (12.0-15.0) g/dL Hct 21.6 L (37.2-46.3) % RDW 17.8 H (11.5-14.5) % Plt Count 114 L (140-440) X 10*3/uL Neutrophils # (Manual) (1.3-7.7) k/uL Lymphocytes # (Manual) 0.35 L (0.90-5.00) X 10*3/uL Monocytes # (Manual) 0.15 L (0.20-1.00) X 10*3/uL Metamyelocytes # (Man) (0) k/uL ABG pH (7.35-7.45) ABG pCO2 (35-45) mmHg ABG pO2 (83-108) mmHg ABG O2 Saturation (94-97) % Hemoglobin (11.4-16.0) gm/dL Sodium (137-145) mmol/L Potassium (3.5-5.1) mmol/L BUN (7-17) mg/dL Creatinine (0.52-1.04) mg/dL Glucose (74-99) mg/dL POC Glucose (mg/dL) (70-110) mg/dL Calcium (8.4-10.2) mg/dL AST (14-36) U/L Alkaline Phosphatase (38-126) U/L Total Protein (6.3-8.2) g/dL Albumin (3.5-5.0) g/dL Triglycerides 422.00 H (0.00-149.00) mg/dL Crossmatch See Detail 12/26/24 12/26/24 12/26/24 Range/Units 11:36 17:11 17:40 WBC (4.50-10.00) X 10*3/uL RBC (4.10-5.20) X 10*6/uL Hgb (12.0-15.0) g/dL Hct (37.2-46.3) % RDW (11.5-14.5) % Plt Count (140-440) X 10*3/uL Neutrophils # (Manual) (1.3-7.7) k/uL Lymphocytes # (Manual) (0.90-5.00) X 10*3/uL Monocytes # (Manual) (0.20-1.00) X 10*3/uL Metamyelocytes # (Man) (0) k/uL ABG pH (7.35-7.45) ABG pCO2 (35-45) mmHg ABG pO2 (83-108) mmHg ABG O2 Saturation (94-97) % Hemoglobin (11.4-16.0) gm/dL Sodium 130 L (137-145) mmol/L Potassium 3.4 L (3.5-5.1) mmol/L BUN 34 H (7-17) mg/dL Creatinine 1.13 H (0.52-1.04) mg/dL Glucose 171 H (74-99) mg/dL POC Glucose (mg/dL) 314 H 200 H (70-110) mg/dL Calcium 7.0 L (8.4-10.2) mg/dL AST 13 L (14-36) U/L Alkaline Phosphatase 37 L (38-126) U/L Total Protein 3.5 L (6.3-8.2) g/dL Albumin 1.9 L (3.5-5.0) g/dL Triglycerides (0.00-149.00) mg/dL Crossmatch 12/26/24 12/26/24 12/27/24 Range/Units 21:42 22:55 04:22 WBC 19.4 H (4.50-10.00) X 10*3/uL RBC 3.19 L (4.10-5.20) X 10*6/uL Hgb 9.5 L (12.0-15.0) g/dL Hct 29.2 L (37.2-46.3) % RDW 16.8 H (11.5-14.5) % Plt Count 107 L D (140-440) X 10*3/uL Neutrophils # (Manual) (1.3-7.7) k/uL Lymphocytes # (Manual) (0.90-5.00) X 10*3/uL Monocytes # (Manual) (0.20-1.00) X 10*3/uL Metamyelocytes # (Man) (0) k/uL ABG pH 7.49 H (7.35-7.45) ABG pCO2 31 L (35-45) mmHg ABG pO2 175 H (83-108) mmHg ABG O2 Saturation 99.9 H (94-97) % Hemoglobin 8.5 L (11.4-16.0) gm/dL Sodium (137-145) mmol/L Potassium (3.5-5.1) mmol/L BUN (7-17) mg/dL Creatinine (0.52-1.04) mg/dL Glucose (74-99) mg/dL POC Glucose (mg/dL) 333 H (70-110) mg/dL Calcium (8.4-10.2) mg/dL AST (14-36) U/L Alkaline Phosphatase (38-126) U/L Total Protein (6.3-8.2) g/dL Albumin (3.5-5.0) g/dL Triglycerides (0.00-149.00) mg/dL Crossmatch 12/27/24 12/27/24 12/27/24 Range/Units 04:30 04:30 05:56 WBC 14.7 H (4.50-10.00) X 10*3/uL RBC 2.93 L (4.10-5.20) X 10*6/uL Hgb 8.7 L (12.0-15.0) g/dL Hct 26.3 L (37.2-46.3) % RDW 17.7 H (11.5-14.5) % Plt Count 73 L (140-440) X 10*3/uL Neutrophils # (Manual) 13.50 H (1.3-7.7) k/uL Lymphocytes # (Manual) (0.90-5.00) X 10*3/uL Monocytes # (Manual) (0.20-1.00) X 10*3/uL Metamyelocytes # (Man) 0.15 H (0) k/uL ABG pH (7.35-7.45) ABG pCO2 (35-45) mmHg ABG pO2 (83-108) mmHg ABG O2 Saturation (94-97) % Hemoglobin (11.4-16.0) gm/dL Sodium 127 L (137-145) mmol/L Potassium (3.5-5.1) mmol/L BUN 36 H (7-17) mg/dL Creatinine 1.17 H (0.52-1.04) mg/dL Glucose 316 H (74-99) mg/dL POC Glucose (mg/dL) 363 H (70-110) mg/dL Calcium 7.4 L (8.4-10.2) mg/dL AST (14-36) U/L Alkaline Phosphatase (38-126) U/L Total Protein 3.5 L (6.3-8.2) g/dL Albumin 1.8 L (3.5-5.0) g/dL Triglycerides (0.00-149.00) mg/dL Crossmatch Microbiology - Last 24 Hours (Table) 12/24/24 16:47 Blood Culture Gram Stain - Final Blood Blood Culture - Final Escherichia coli Molecular ID Assessment and Plan Plan: Assessment: 1. Acute kidney injury secondary to septic ATN. Baseline creatinine near 0.8 and peaked at 1.68 this admission -1.[address] scan from December 24, 2024 showed no evidence of hydronephrosis. 2. Multiple myeloma maintained on chemotherapy. 3. Acute diverticulitis with perforation being followed by surgery. Status post sigmoid colectomy with drainage of abscess December 26, 2024. 4. Acute blood loss anemia status post blood transfusion this admission. Status post IV DDAVP. 5. Metabolic acidosis secondary to acute kidney injury and IV fluids. Status post bicarb drip. Improved. 6. Hyponatremia secondary to acute kidney injury. 7. E. coli bacteremia on antibiotics. Plan: Maintain normal saline. Bicarb drip discontinued. Avoid nephrotoxins. Continue to monitor renal function and urine output. Wean FiO2 and vasopressors.
[2024-12-27] MEDS: SODIUM CHLORIDE 0.9% 1,000 ML IV SCH (10:04)
[2024-12-27] MEDS: NOREPINEPHRINE 8 MG in SODIUM CHLORIDE 0.9% 250 ML IV SCH (10:05)
[2024-12-27] MEDS: LEVOTHYROXINE IVP 100 MCG/5 ML VIAL IV SCH (10:05)
[2024-12-27] MEDS: PANTOPRAZOLE 40 MG/10 ML VIAL IV SCH (10:05)
[2024-12-27] MEDS: MAGNESIUM SULFATE-D5W PMX 1 GM in DEXTROSE/WATER 1 100ML.BAG IVPB ONE (10:06)
[2024-12-27] MEDS: INSULIN GLARGINE (LANTUS) 100 UNIT/ML SYR SQ SCH (10:06)
[2024-12-27] MEDS: HYDROCORTISONE SUCCINATE 100 MG/2 ML VIAL IV SCH (10:08)
--- NOTE | 2024-12-27 10:11 | P.PN ---
Progress Note - Text Progress Note Date: 12/27/24 Discussed with ICU team and surgical team- recommendation for IVC filter. Patient still on pressors and therefore will attempt to wean and schedule IVC filter placement tomorrow.
--- NOTE | 2024-12-27 10:57 | P.PN ---
Subjective Progress Note Date: 12/27/24 Patient appears to be resting comfortably in the ICU. She is still sedated. She has been hemoglobin stable. She has had reasonable urine output. There has been no significant output through her colostomy. On exam vital signs appear stable. Abdomen is soft incision is clean dry intact. Status post sigmoid colectomy for perforated diverticulitis with drainage of interloop abscess. Patient can receive IV antibiotics. Patient is scheduled for IVC filter placement tomorrow. She will not have her Eliquis resumed currently. Objective - Vital Signs Vital signs: Vital Signs Temp 98.0 F 12/27/24 04:00 Pulse 84 12/27/24 09:14 Resp 22 12/27/24 07:00 BP 107/32 12/27/24 06:45 Pulse Ox 100 12/27/24 07:00 FiO2 40 12/27/24 08:58 Intake & Output 12/26/24 12/27/24 12/27/24 18:59 06:59 18:59 Intake Total 1500 2117.417 110.646 Output Total 280 575 30 Balance 1220 1542.417 80.646 Weight 78.6 kg Intake: IV 1500 1100 100 Dextrose 5% in Water 1, 1100 100 000 ml @ 100 mls/hr IV . [id number] [facility] with Sodium Bicarb (1 Meq/ml) 150 ml Rx#:[id number] Intake, IV Titration 707.417 10.646 Amount Magnesium Sulfate-D5w Pmx 100 1 gm In Dextrose/Water 1 100ml.bag @ 100 mls/hr IVPB ONCE ONE Rx#: [id number] Phenylephrine 40 mg In 320.898 10.646 Sodium Chloride 0.9% 250 ml @ 1 MCG/KG/MIN 24.195 mls/hr IV .[id number] [facility] Rx #:[id number] Potassium Chloride 20 meq 200 In Water For Injection 1 100ml.bag @ 50 mls/hr IVPB Q2H [facility] Rx#: [id number] propofoL 1,000 mg In 86.519 Empty Bag 1 bag @ 15 MCG/ KG/MIN 5.715 mls/hr IV . [id number] [facility] Rx#:[id number] Blood Product 0 310 Rc Irr As1 Unit 0 310 [id number] Output: Drainage 255 Abdomen 255 Urine 230 320 30 Estimated Blood Loss 50 Other: Voiding Method External Catheter Indwelling Catheter # Bowel Movements 1 ABP, PAP, CO, CI - Last Documented Arterial Blood Pressure 114/49 - Labs CBC & Chem 7: 12/27/24 04:30 12/27/24 04:30 Labs: Abnormal Lab Results - Last 24 Hours (Table) 12/25/24 12/26/24 12/26/24 Range/Units 11:12 04:31 04:31 WBC 2.95 L (4.50-10.00) X 10*3/uL RBC 2.39 L (4.10-5.20) X 10*6/uL Hgb 7.4 L (12.0-15.0) g/dL Hct 21.6 L (37.2-46.3) % RDW 17.8 H (11.5-14.5) % Plt Count 114 L (140-440) X 10*3/uL Neutrophils # (Manual) (1.3-7.7) k/uL Lymphocytes # (Manual) 0.35 L (0.90-5.00) X 10*3/uL Monocytes # (Manual) 0.15 L (0.20-1.00) X 10*3/uL Metamyelocytes # (Man) (0) k/uL ABG pH (7.35-7.45) ABG pCO2 (35-45) mmHg ABG pO2 (83-108) mmHg ABG O2 Saturation (94-97) % Hemoglobin (11.4-16.0) gm/dL Sodium (137-145) mmol/L Potassium (3.5-5.1) mmol/L BUN (7-17) mg/dL Creatinine (0.52-1.04) mg/dL Glucose (74-99) mg/dL POC Glucose (mg/dL) (70-110) mg/dL Calcium (8.4-10.2) mg/dL AST (14-36) U/L Alkaline Phosphatase (38-126) U/L Total Protein (6.3-8.2) g/dL Albumin (3.5-5.0) g/dL Triglycerides 422.00 H (0.00-149.00) mg/dL Crossmatch See Detail 12/26/24 12/26/24 12/26/24 Range/Units 11:36 17:11 17:40 WBC (4.50-10.00) X 10*3/uL RBC (4.10-5.20) X 10*6/uL Hgb (12.0-15.0) g/dL Hct (37.2-46.3) % RDW (11.5-14.5) % Plt Count (140-440) X 10*3/uL Neutrophils # (Manual) (1.3-7.7) k/uL Lymphocytes # (Manual) (0.90-5.00) X 10*3/uL Monocytes # (Manual) (0.20-1.00) X 10*3/uL Metamyelocytes # (Man) (0) k/uL ABG pH (7.35-7.45) ABG pCO2 (35-45) mmHg ABG pO2 (83-108) mmHg ABG O2 Saturation (94-97) % Hemoglobin (11.4-16.0) gm/dL Sodium 130 L (137-145) mmol/L Potassium 3.4 L (3.5-5.1) mmol/L BUN 34 H (7-17) mg/dL Creatinine 1.13 H (0.52-1.04) mg/dL Glucose 171 H (74-99) mg/dL POC Glucose (mg/dL) 314 H 200 H (70-110) mg/dL Calcium 7.0 L (8.4-10.2) mg/dL AST 13 L (14-36) U/L Alkaline Phosphatase 37 L (38-126) U/L Total Protein 3.5 L (6.3-8.2) g/dL Albumin 1.9 L (3.5-5.0) g/dL Triglycerides (0.00-149.00) mg/dL Crossmatch 12/26/24 12/26/24 12/27/24 Range/Units 21:42 22:55 04:22 WBC 19.4 H (4.50-10.00) X 10*3/uL RBC 3.19 L (4.10-5.20) X 10*6/uL Hgb 9.5 L (12.0-15.0) g/dL Hct 29.2 L (37.2-46.3) % RDW 16.8 H (11.5-14.5) % Plt Count 107 L D (140-440) X 10*3/uL Neutrophils # (Manual) (1.3-7.7) k/uL Lymphocytes # (Manual) (0.90-5.00) X 10*3/uL Monocytes # (Manual) (0.20-1.00) X 10*3/uL Metamyelocytes # (Man) (0) k/uL ABG pH 7.49 H (7.35-7.45) ABG pCO2 31 L (35-45) mmHg ABG pO2 175 H (83-108) mmHg ABG O2 Saturation 99.9 H (94-97) % Hemoglobin 8.5 L (11.4-16.0) gm/dL Sodium (137-145) mmol/L Potassium (3.5-5.1) mmol/L BUN (7-17) mg/dL Creatinine (0.52-1.04) mg/dL Glucose (74-99) mg/dL POC Glucose (mg/dL) 333 H (70-110) mg/dL Calcium (8.4-10.2) mg/dL AST (14-36) U/L Alkaline Phosphatase (38-126) U/L Total Protein (6.3-8.2) g/dL Albumin (3.5-5.0) g/dL Triglycerides (0.00-149.00) mg/dL Crossmatch 12/27/24 12/27/24 12/27/24 Range/Units 04:30 04:30 05:56 WBC 14.7 H (4.50-10.00) X 10*3/uL RBC 2.93 L (4.10-5.20) X 10*6/uL Hgb 8.7 L (12.0-15.0) g/dL Hct 26.3 L (37.2-46.3) % RDW 17.7 H (11.5-14.5) % Plt Count 73 L (140-440) X 10*3/uL Neutrophils # (Manual) 13.50 H (1.3-7.7) k/uL Lymphocytes # (Manual) (0.90-5.00) X 10*3/uL Monocytes # (Manual) (0.20-1.00) X 10*3/uL Metamyelocytes # (Man) 0.15 H (0) k/uL ABG pH (7.35-7.45) ABG pCO2 (35-45) mmHg ABG pO2 (83-108) mmHg ABG O2 Saturation (94-97) % Hemoglobin (11.4-16.0) gm/dL Sodium 127 L (137-145) mmol/L Potassium (3.5-5.1) mmol/L BUN 36 H (7-17) mg/dL Creatinine 1.17 H (0.52-1.04) mg/dL Glucose 316 H (74-99) mg/dL POC Glucose (mg/dL) 363 H (70-110) mg/dL Calcium 7.4 L (8.4-10.2) mg/dL AST (14-36) U/L Alkaline Phosphatase (38-126) U/L Total Protein 3.5 L (6.3-8.2) g/dL Albumin 1.8 L (3.5-5.0) g/dL Triglycerides (0.00-149.00) mg/dL Crossmatch Microbiology - Last 24 Hours (Table) 12/24/24 16:47 Blood Culture Gram Stain - Final Blood Blood Culture - Final Escherichia coli Molecular ID
--- NOTE | 2024-12-27 11:50 | P.PN ---
Subjective This 79-year-old female was just discharged on December 22, 2024 for lower extremity DVT. She has a history of multiple myeloma had worsening swelling in her leg. She has a history of therapeutic radiation and normocytic anemia from this. She had electrolyte abnormalities on that admission but there was no mention of abdominal pain during that admission. She told Dr. Greenwood saw her oncologist she had had abdominal pain and a CT scan was done. She was found to have an acute diverticulitis with the transverse colon with a small perforation. She was admitted for IV hydration and IV antibiotics. She has not been on her Eliquis since 1 day ago. Her blood cultures are now positive. Surgery wanted to do it total parenteral nutritional line but recommended a supportive care plan with no surgical intervention this time. She is also found to be anemic with a hemoglobin of 6.3 being transfuse 1 unit of packed red blood cells. She is currently on Zosyn. IV fluids of D5 water at 100 cc/h. Nephrology was ordered. She is also had evidence of worsening kidney failure. In the room the patient is awake alert indicates her abdominal pain is improved and points to midepigastrium. Family is at bedside. Her son would like her transferred to a tertiary care facility. 12/26/2024: Patient is resting in her room. She is scheduled be transferred to [facility] on insurance authorization. She has some mild increased abdominal pain. Surgery is following. They are planning a repeat CT soon. Patient remains NPO. She remains afebrile, heart rate controlled, blood pressure normal. Labs this morning show sodium 126 potassium 3.9 BUN is 47 creatinine 1.47 with a GFR of 34. She received 1 unit of packed red blood cells yesterday. Repeat CBC is pending 12/27/2024: After multiple attempts to transfer the patient that failed due to insurance authorization. Patient underwent repeat CT scan that showed the acute sigmoid diverticulitis now with 8 cm collection consistent with abscess. Discussed the case extensively Dr. Rodriges who felt the patient needed to be taken the operating room immediately and cannot wait to be transferred on Saturday. Patient was also seen by vascular surgery who are planning to do a IVC filter in the next several days. Patient underwent a sigmoid colectomy with drainage of the interloop abscess and proximal omentectomy. She now has a colectomy bag. She is sedated in the intensive care unit and intubated. Vital signs remained stable. FiO2 of 40% Labs this morning show a WBC count of 14.7 hemoglobin 8.7 platelets are 73. Sodium is 127 potassium 4.3 GFR is 45. Surgery, vascular surgery, and nephrology notes reviewed this morning. Chest x-ray is stable. Patient remains on D5 water at 100 cc an hour. She is receiving magnesium supplementation and remains on Zosyn antibiotics Objective - Vital Signs Vital signs: Vital Signs Temp 99.5 F 12/27/24 11:30 Pulse 81 12/27/24 11:30 Resp 22 12/27/24 11:00 BP 107/70 12/27/24 11:15 Pulse Ox 100 12/27/24 11:30 FiO2 40 12/27/24 11:00 Intake & Output 12/26/24 12/27/24 12/27/24 18:59 06:59 18:59 Intake Total 1500 2117.417 303.463 Output Total 280 575 30 Balance 1220 1542.417 273.463 Weight 78.6 kg Intake: IV 1500 1100 100 Dextrose 5% in Water 1, 1100 100 000 ml @ 100 mls/hr IV . [id number] OBDULIO with Sodium Bicarb (1 Meq/ml) 150 ml Rx#:[id number] Intake, IV Titration 707.417 203.463 Amount Magnesium Sulfate-D5w Pmx 100 1 gm In Dextrose/Water 1 100ml.bag @ 100 mls/hr IVPB ONCE ONE Rx#: [id number] Norepinephrine 8 mg In 4.183 Sodium Chloride 0.9% 250 ml @ 0.03 MCG/KG/MIN 4. 563 mls/hr IV .Q24H OBDULIO Rx#:[id number] Phenylephrine 40 mg In 320.898 138.031 Sodium Chloride 0.9% 250 ml @ 1 MCG/KG/MIN 24.195 mls/hr IV .[id number] OBDULIO Rx #:[id number] Potassium Chloride 20 meq 200 In Water For Injection 1 100ml.bag @ 50 mls/hr IVPB Q2H OBDULIO Rx#: [id number] propofoL 1,000 mg In 86.519 61.249 Empty Bag 1 bag @ 15 MCG/ KG/MIN 5.715 mls/hr IV . [id number] OBDULIO Rx#:[id number] Blood Product 0 310 Rc Irr As1 Unit 0 310 [id number] Output: Drainage 255 Abdomen 255 Urine 230 320 30 Estimated Blood Loss 50 Other: Voiding Method External Catheter Indwelling Catheter # Bowel Movements 1 ABP, PAP, CO, CI - Last Documented Arterial Blood Pressure 120/48 - Exam GENERAL: Elderly female now intubated and sedated intensive care unit HEAD: Atraumatic, normocephalic. NECK: Normal range of motion, supple without lymphadenopathy or JVD, no thyromegaly LUNGS: Breath sounds clear to auscultation bilaterally and equal. No wheezes rales or rhonchi. HEART: Regular rate and rhythm 1/6 systolic murm rubs or gallops.S1S2 Normal ABDOMEN: Soft, incision site dressing is clean dry and intact in the right abd omen, colostomy bag on the left side no drainage yet EXTREMITIES: Normal range of motion, no pitting or edema. No clubbing or cyanosis. NEUROLOGICAL: Cranial nerves II through XII grossly intact. Normal speech, normal gait. PSYCH: Normal mood, normal affect. SKIN: Warm, Dry, normal turgor, no rashes or lesions noted. - Labs CBC & Chem 7: 12/27/24 04:30 12/27/24 04:30 Labs: Abnormal Lab Results - Last 24 Hours (Table) 12/25/24 12/26/24 12/26/24 Range/Units 11:12 04:31 17:11 WBC (3.8-10.6) k/uL RBC (3.80-5.40) m/uL Hgb (11.4-16.0) gm/dL Hct (34.0-46.0) % RDW (11.5-15.5) % Plt Count (150-450) k/uL Neutrophils # (Manual) (1.3-7.7) k/uL Metamyelocytes # (Man) (0) k/uL ABG pH (7.35-7.45) ABG pCO2 (35-45) mmHg ABG pO2 (83-108) mmHg ABG O2 Saturation (94-97) % Hemoglobin (11.4-16.0) gm/dL Sodium (137-145) mmol/L Potassium (3.5-5.1) mmol/L BUN (7-17) mg/dL Creatinine (0.52-1.04) mg/dL Glucose (74-99) mg/dL POC Glucose (mg/dL) 200 H (70-110) mg/dL Calcium (8.4-10.2) mg/dL AST (14-36) U/L Alkaline Phosphatase (38-126) U/L Total Protein (6.3-8.2) g/dL Albumin (3.5-5.0) g/dL Triglycerides 422.00 H (0.00-149.00) mg/dL Crossmatch See Detail 12/26/24 12/26/24 12/26/24 Range/Units 17:40 21:42 22:55 WBC 19.4 H (3.8-10.6) k/uL RBC 3.19 L (3.80-5.40) m/uL Hgb 9.5 L (11.4-16.0) gm/dL Hct 29.2 L (34.0-46.0) % RDW 16.8 H (11.5-15.5) % Plt Count 107 L D (150-450) k/uL Neutrophils # (Manual) (1.3-7.7) k/uL Metamyelocytes # (Man) (0) k/uL ABG pH (7.35-7.45) ABG pCO2 (35-45) mmHg ABG pO2 (83-108) mmHg ABG O2 Saturation (94-97) % Hemoglobin (11.4-16.0) gm/dL Sodium 130 L (137-145) mmol/L Potassium 3.4 L (3.5-5.1) mmol/L BUN 34 H (7-17) mg/dL Creatinine 1.13 H (0.52-1.04) mg/dL Glucose 171 H (74-99) mg/dL POC Glucose (mg/dL) 333 H (70-110) mg/dL Calcium 7.0 L (8.4-10.2) mg/dL AST 13 L (14-36) U/L Alkaline Phosphatase 37 L (38-126) U/L Total Protein 3.5 L (6.3-8.2) g/dL Albumin 1.9 L (3.5-5.0) g/dL Triglycerides (0.00-149.00) mg/dL Crossmatch 03/12/27/24 12/27/24 Range/Units 04:22 04:30 04:30 WBC 14.7 H (3.8-10.6) k/uL RBC 2.93 L (3.80-5.40) m/uL Hgb 8.7 L (11.4-16.0) gm/dL Hct 26.3 L (34.0-46.0) % RDW 17.7 H (11.5-15.5) % Plt Count 73 L (150-450) k/uL Neutrophils # (Manual) 13.50 H (1.3-7.7) k/uL Metamyelocytes # (Man) 0.15 H (0) k/uL ABG pH 7.49 H (7.35-7.45) ABG pCO2 31 L (35-45) mmHg ABG pO2 175 H (83-108) mmHg ABG O2 Saturation 99.9 H (94-97) % Hemoglobin 8.5 L (11.4-16.0) gm/dL Sodium 127 L (137-145) mmol/L Potassium (3.5-5.1) mmol/L BUN 36 H (7-17) mg/dL Creatinine 1.17 H (0.52-1.04) mg/dL Glucose 316 H (74-99) mg/dL POC Glucose (mg/dL) (70-110) mg/dL Calcium 7.4 L (8.4-10.2) mg/dL AST (14-36) U/L Alkaline Phosphatase (38-126) U/L Total Protein 3.5 L (6.3-8.2) g/dL Albumin 1.8 L (3.5-5.0) g/dL Triglycerides (0.00-149.00) mg/dL Crossmatch 12/27/24 Range/Units 05:56 WBC (3.8-10.6) k/uL RBC (3.80-5.40) m/uL Hgb (11.4-16.0) gm/dL Hct (34.0-46.0) % RDW (11.5-15.5) % Plt Count (150-450) k/uL Neutrophils # (Manual) (1.3-7.7) k/uL Metamyelocytes # (Man) (0) k/uL ABG pH (7.35-7.45) ABG pCO2 (35-45) mmHg ABG pO2 (83-108) mmHg ABG O2 Saturation (94-97) % Hemoglobin (11.4-16.0) gm/dL Sodium (137-145) mmol/L Potassium (3.5-5.1) mmol/L BUN (7-17) mg/dL Creatinine (0.52-1.04) mg/dL Glucose (74-99) mg/dL POC Glucose (mg/dL) 363 H (70-110) mg/dL Calcium (8.4-10.2) mg/dL AST (14-36) U/L Alkaline Phosphatase (38-126) U/L Total Protein (6.3-8.2) g/dL Albumin (3.5-5.0) g/dL Triglycerides (0.00-149.00) mg/dL Crossmatch Microbiology - Last 24 Hours (Table) 12/24/24 16:47 Blood Culture Gram Stain - Final Blood Blood Culture - Final Escherichia coli Molecular ID Assessment and Plan (1) Perforated diverticulum Current Visit: Yes Status: Acute Code(s): K57.80 - DVTRCLI OF INTEST, PART UNSP, W PERF AND ABSCESS W/O BLEED SNOMED Code(s): 93637405 (2) Pancytopenia Current Visit: Yes Status: Acute Code(s): D61.818 - OTHER PANCYTOPENIA SNOMED Code(s): 559932312 (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 Current Visit: Yes Status: Acute Code(s): E11.59 - TYPE 2 DIABETES MELLITUS WITH OTH CIRCULATORY COMPLICATIONS SNOMED Code(s): 08616667 (4) Abdominal pain Current Visit: Yes Status: Acute Code(s): R10.9 - UNSPECIFIED ABDOMINAL PAIN SNOMED Code(s): 52086411 (5) Pneumoperitoneum Current Visit: Yes Status: Acute Code(s): K66.8 - OTHER SPECIFIED DISORDERS OF PERITONEUM SNOMED Code(s): 35832354 (6) Deep vein thrombosis (DVT) of lower extremity Current Visit: No Status: Acute Priority: Medium Code(s): I82.409 - ACUTE EMBOLISM AND THOMBOS UNSP DEEP VN UNSP LOWER EXTREMITY SNOMED Code(s): 759484366 (7) Dehydration Current Visit: No Status: Acute Code(s): E86.0 - DEHYDRATION SNOMED Code(s): 39026378 (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 Current Visit: No Status: Acute Code(s): Z95.1 - PRESENCE OF AORTOCORONARY BYPASS GRAFT SNOMED Code(s): 131447693 (9) H/O therapeutic radiation Current Visit: No Status: Acute Code(s): Z92.3 - PERSONAL HISTORY OF IRRADIATION SNOMED Code(s): 181483097 (10) Hypertension Current Visit: No Status: Acute Code(s): I10 - ESSENTIAL (PRIMARY) HYPERTENSION SNOMED Code(s): 14714801 (11) Hyponatremia Current Visit: No Status: Acute Code(s): E87.1 - HYPO-OSMOLALITY AND HYPONATREMIA SNOMED Code(s): 01829659 (12) Multiple myeloma Current Visit: No Status: Acute Priority: Medium Code(s): C90.00 - MULTIPLE MYELOMA NOT HAVING ACHIEVED REMISSION SNOMED Code(s): 298991661 (13) S/P colectomy Current Visit: Yes Status: Acute Code(s): Z90.49 - ACQUIRED ABSENCE OF OTHER SPECIFIED PARTS OF DIGESTIVE TRACT SNOMED Code(s): 244814761 Plan: Patient now resting comfortably intensive care unit. She remains intubated and sedated. She remains on Zosyn antibiotic coverage. IVC filter will be placed by vascular surgery in the next 1 to 2 days. They are planning on starting TPN via PICC line soon. She has coverage of insulin for hyperglycemia. Will await further recommendation surgery. Will reevaluate in next 24 hours
[2024-12-27 12:03] LABS: Glucose,Whole Blood 351 mg/dL (70-110)
[2024-12-27] MEDS: INSULIN LISPRO (HumaLOG) 100 UNIT/ML 10 mL VL SQ SCH (12:07)
--- NOTE | 2024-12-27 12:54 | P.CNPUL ---
History of Present Illness Consult date: 12/27/24 Chief complaint: Sepsis History of present illness: This is a 79-year-old female patient with known history of coronary artery disease and previous bypass surgery and known history of diabetes mellitus type 2 and multiple myeloma and the patient was diagnosed having multiple myeloma back in May 2024 and the patient had significant back pain with pathologic bone marrow infiltration throughout the lumbar spine and pelvic area with a pathologic fracture of the L2 vertebral body and osseous extension of the tumor causing left neural foraminal narrowing at the level of L1-L2 and L2-L3. The patient was started on treatment with palliative radiation therapy and following that she was started on RVD treatment and she completed cycle 2 on 12/24/2024. Subsequently, the patient gets hospitalized for an extensive left lower extremity DVT involving a clot extending from the left iliac to the popliteal vein and the patient was started on anticoagulation with Eliquis. She was discharged to be readmitted for abdominal pain and this was assumed to be related to constipation. She was discharged to be readmitted for ongoing abdominal pain and the patient was diagnosed having acute diverticulitis. Yesterday, the patient was taken to the operating room as the follow-up CAT scan of the abdomen showed a complicated diverticulitis of the sigmoid colon with perforation and pneumoperitoneum. There was 8 cm gas/fluid collection consistent with an abscess. She also had cholelithiasis and diffuse anasarca. In the operating room, the patient was found to have an abdominal abscess that was drained. The patient had sigmoid colectomy and diverting colostomy. Postop, the patient was kept intubated and placed on the mechanical ventilator and she was transferred to the ICU. Noted her anticoagulation is currently on hold and she is not showing any signs of bleeding. He is currently off anticoagulants. Vascular surgery has seen the patient and patient is being contemplated for IVC filter placement. Platelet counts are also low. This morning, she is on propofol at rate of 30, she is on assist-control mode at rate of 16, tidal volume of 350, FiO2 40% with a PEEP of 5. Blood gas showed a pH of 7.48 with a pCO2 of 30 and pO2 175. NG tube output is minimal and fluid balance is +2.7 L of the patient received several fluid boluses yesterday. She remains on Alvin-Synephrine at 1.3 mcg. Producing urine output. White cell count is 14.7, hemoglobin is 8.7 and platelet count is at 73. The non-anion gap metabolic acidosis is improved and the patient serum bicarb is up to 22. Sodium levels at 127. Potassium is at 4.2. LFTs are normal. Blood sugar is at 363. Chest x-ray showed atelectatic changes lung base bilaterally. Orotracheal tube is in good location. Postthoracotomy changes related to previous heart surgery and some pulm vascular congestion is also present. The patient is currently on IV Zosyn. She will be started on TPN for nutritional support within the next 24 to 48 hours. Blood cultures positive for E. coli. Review of Systems ROS unobtainable: due to endotracheal tube Past Medical History Past Medical History: Coronary Artery Disease (CAD), Cancer, Diabetes Mellitus, Hyperlipidemia, Hypertension, Thyroid Disorder Additional Past Medical History / Comment(s): Chronic neck pain from compressed disks in her neck, cancer back History of Any Multi-Drug Resistant Organisms: None Reported Past Surgical History: Section, Orthopedic Surgery Additional Past Surgical History / Comment(s): Left knee replacement, bypass Past Psychological History: No Psychological Hx Reported Smoking Status: Never smoker Past Alcohol Use History: None Reported Past Drug Use History: None Reported - Past Family History Father Family Medical History: Myocardial Infarction ([place]) Additional Family Medical History / Comment(s): at 70 years old from myocardial infarction-suspected. Mother Additional Family Medical History / Comment(s): from "enlarged heart" at 87 years old Brother(s) Family Medical History: Coronary Artery Disease (CAD) Additional Family Medical History / Comment(s): Multiple stents placed Son(s) Family Medical History: CVA/TIA Additional Family Medical History / Comment(s): from stroke at 41 years old Medications and Allergies Home Medications Medication Instructions Recorded Confirmed Type Aspirin EC [Ecotrin Low Dose] 81 mg PO HS #30 tab 11/01/20 12/24/24 Rx Levothyroxine Sodium [Synthroid] 112 mcg PO AC-BRKFST #30 tab 11/01/20 12/24/24 Rx Dulaglutide [Trulicity] 0.75 mg SQ MO 11/09/24 12/24/24 History dexAMETHasone [Decadron] 20 mg PO MO 11/09/24 12/24/24 History traMADol HCL 25 mg PO Q8H PRN 11/09/24 12/24/24 History Acyclovir [Zovirax] 400 mg PO BID 12/16/24 12/24/24 History Bortezomib 1 dose INJ WE 12/16/24 12/24/24 History Fluconazole [Diflucan] 100 mg PO DAILY 12/16/24 12/24/24 History Lenalidomide 15 mg PO DIRECTED 12/16/24 12/24/24 History Ondansetron Odt [Zofran ODT] 4 mg PO Q8HR PRN 12/16/24 12/24/24 History Pantoprazole [Protonix] 40 mg PO DAILY #30 tab 12/16/24 12/24/24 Rx Sulfamethox-Tmp 800-160Mg [Bactrim 1 tab PO MOWEFR 12/16/24 12/24/24 History DS 800-160 mg] Valsartan [Diovan] 80 mg PO HS 12/16/24 12/24/24 History atenoloL [Tenormin] 25 mg PO HS 12/16/24 12/24/24 History Apixaban [Eliquis Starter Pack See Taper PO DIRECTED 12/24/24 12/24/24 History (for VTE)] Collagenase [Santyl Ointment] 1 applic TOPICAL DIRECTED 12/24/24 12/24/24 History Sodium Bicarbonate Tab 650 mg PO DIRECTED 12/24/24 12/24/24 History Acetaminophen Tab [Tylenol] 650 mg PO Q6HR PRN tab 12/25/24 Rx INSULIN LISPRO (HumaLOG) [HumaLOG] 0 unit SQ ACHS each 12/25/24 Rx Piperacillin-Tazobactam [Zosyn] 3.375 gm IVPB Q8H each 12/25/24 Rx atenoloL [Tenormin] 25 mg PO HS tab 12/25/24 Rx Allergies Allergy/AdvReac Type Severity Reaction Status Date / Time epinephrine AdvReac Intermediate Rapid Verified 12/24/24 18:03 Heart Rate Physical Exam Vitals: Vital Signs Temp Pulse Pulse Resp BP BP Pulse Ox 12/27/24 12:10 78 12/27/24 11:58 75 12/27/24 11:30 99.5 F 81 100 12/27/24 11:15 80 107/70 99 12/27/24 11:00 84 22 100 12/27/24 10:45 94 107/70 12/27/24 10:30 89 12/27/24 10:15 101 H 113/67 99 12/27/24 10:00 92 26 H 99 12/27/24 09:45 126 H 98/50 100 12/27/24 09:30 87 100 12/27/24 09:15 90 100/84 99 12/27/24 09:14 84 12/27/24 09:00 87 26 H 100 12/27/24 08:58 12/27/24 08:55 83 12/27/24 08:47 12/27/24 08:45 80 108/58 100 12/27/24 08:30 80 100 12/27/24 08:15 101 H 87/53 99 12/27/24 08:00 99.0 F 84 23 100 12/27/24 07:45 89 92/66 100 12/27/24 07:30 86 100 12/27/24 07:15 86 117/61 100 12/27/24 07:00 81 22 100 12/27/24 06:45 87 21 107/32 100 12/27/24 06:30 81 20 100 12/27/24 06:15 91 24 100 12/27/24 06:00 88 23 136/64 100 12/27/24 05:45 87 24 100 12/27/24 05:30 93 25 H 114/54 100 12/27/24 05:15 84 21 114/54 100 12/27/24 05:00 86 20 97/69 100 12/27/24 04:45 87 21 97/69 100 12/27/24 04:41 90 12/27/24 04:31 89 12/27/24 04:30 80 17 100 12/27/24 04:28 12/27/24 04:15 84 20 108/62 100 12/27/24 04:00 98.0 F 86 19 100 12/27/24 03:48 12/27/24 03:45 85 20 103/90 100 12/27/24 03:30 90 20 100 12/27/24 03:15 88 20 113/66 100 12/27/24 03:00 88 18 100 12/27/24 02:45 83 19 124/64 100 12/27/24 02:30 81 18 100 12/27/24 02:15 90 19 129/49 100 12/27/24 02:00 87 17 110/61 100 12/27/24 01:45 104 H 18 100 12/27/24 01:30 86 18 100 12/27/24 01:15 87 18 108/51 100 12/27/24 01:00 83 18 99/45 100 12/27/24 00:45 84 19 99/45 100 12/27/24 00:30 87 18 100 12/27/24 00:23 86 12/27/24 00:15 86 19 97/74 100 12/27/24 00:02 89 20 97/74 100 12/27/24 00:00 97.9 F 85 20 85/54 100 12/26/24 23:52 12/26/24 23:45 86 19 100 12/26/24 23:30 88 18 100 12/26/24 23:15 89 24 115/75 100 12/26/24 23:00 102 H 25 H 104/57 100 12/26/24 22:45 96 25 H 100 12/26/24 22:30 110 H 26 H 100 12/26/24 22:15 106 H 24 131/69 100 12/26/24 22:00 102 H 25 H 145/54 100 12/26/24 21:45 103 H 24 100 12/26/24 21:30 101 H 24 133/55 100 12/26/24 21:15 95 25 H 100 12/26/24 21:00 97.7 F 89 24 133/55 100 12/26/24 20:50 92 12/26/24 20:45 86 22 100 12/26/24 20:40 90 12/26/24 20:35 12/26/24 20:30 91 22 100 12/26/24 20:15 76 18 100 12/26/24 20:00 97.7 F 89 19 100 12/26/24 19:45 95 19 100 12/26/24 19:30 93 19 100 12/26/24 19:15 87 17 100 12/26/24 19:00 85 16 100 12/26/24 18:45 83 16 100 12/26/24 18:34 98.1 F 77 16 143/55 100 12/26/24 18:30 84 16 100 12/26/24 18:15 79 16 100 12/26/24 18:14 97.8 F 82 16 110/47 100 12/26/24 18:04 97.5 F L 80 16 100/44 100 12/26/24 18:00 82 16 100 12/26/24 17:45 81 19 100 12/26/24 17:42 12/26/24 17:30 81 15 100 12/26/24 17:15 97.5 F L 76 16 100 12/26/24 17:05 12/26/24 13:53 97.2 F L 86 17 115/69 97 FiO2 12/27/24 12:10 12/27/24 11:58 40 12/27/24 11:30 12/27/24 11:15 12/27/24 11:00 40 12/27/24 10:45 12/27/24 10:30 12/27/24 10:15 12/27/24 10:00 40 12/27/24 09:45 12/27/24 09:30 12/27/24 09:15 12/27/24 09:14 12/27/24 09:00 40 12/27/24 08:58 40 12/27/24 08:55 12/27/24 08:47 40 12/27/24 08:45 12/27/24 08:30 12/27/24 08:15 12/27/24 08:00 40 12/27/24 07:45 12/27/24 07:30 12/27/24 07:15 12/27/24 07:00 12/27/24 06:45 12/27/24 06:30 12/27/24 06:15 12/27/24 06:00 12/27/24 05:45 12/27/24 05:30 12/27/24 05:15 12/27/24 05:00 12/27/24 04:45 12/27/24 04:41 12/27/24 04:31 12/27/24 04:30 12/27/24 04:28 50 12/27/24 04:15 12/27/24 04:00 50 12/27/24 03:48 50 12/27/24 03:45 12/27/24 03:30 12/27/24 03:15 12/27/24 03:00 12/27/24 02:45 12/27/24 02:30 12/27/24 02:15 12/27/24 02:00 12/27/24 01:45 12/27/24 01:30 12/27/24 01:15 12/27/24 01:00 12/27/24 00:45 12/27/24 00:30 12/27/24 00:23 50 12/27/24 00:15 12/27/24 00:02 12/27/24 00:00 50 12/26/24 23:52 50 12/26/24 23:45 12/26/24 23:30 12/26/24 23:15 12/26/24 23:00 12/26/24 22:45 12/26/24 22:30 12/26/24 22:15 12/26/24 22:00 12/26/24 21:45 12/26/24 21:30 12/26/24 21:15 12/26/24 21:00 12/26/24 20:50 12/26/24 20:45 12/26/24 20:40 12/26/24 20:35 50 12/26/24 20:30 12/26/24 20:15 12/26/24 20:00 50 12/26/24 19:45 12/26/24 19:30 12/26/24 19:15 12/26/24 19:00 12/26/24 18:45 12/26/24 18:34 12/26/24 18:30 12/26/24 18:15 12/26/24 18:14 12/26/24 18:04 12/26/24 18:00 50 12/26/24 17:45 12/26/24 17:42 50 12/26/24 17:30 12/26/24 17:15 100 12/26/24 17:05 100 12/26/24 13:53 Intake and Output 12/26/24 12/27/24 12/27/24 22:59 06:59 14:59 Intake Total 2621.619 995.798 928.463 Output Total 685 170 220 Balance 1936.619 825.798 708.463 Intake: IV 1900 700 725 Dextrose 5% in Water 1, 400 700 300 000 ml @ 100 mls/hr IV . [id number] OBDULIO with Sodium Bicarb (1 Meq/ml) 150 ml Rx#:[id number] Magnesium Sulfate-D5w Pmx 100 1 gm In Dextrose/Water 1 100ml.bag @ 100 mls/hr IVPB ONCE ONE Rx#: [id number] Piperacillin-Tazobactam 3 100 .375 gm In Sodium Chloride 0.9% 100 ml @ 25 mls/hr IVPB Q8H [facility] Rx#: [id number] Sodium Chloride 0.9% 1, 225 000 ml @ 75 mls/hr IV . [id number] [facility] Rx#:[id number] Intake, IV Titration 411.619 295.798 203.463 Amount Magnesium Sulfate-D5w Pmx 100 1 gm In Dextrose/Water 1 100ml.bag @ 100 mls/hr IVPB ONCE ONE Rx#: [id number] Norepinephrine 8 mg In 4.183 Sodium Chloride 0.9% 250 ml @ 0.03 MCG/KG/MIN 4. 563 mls/hr IV .Q24H [facility] Rx#:[id number] Phenylephrine 40 mg In 111.619 209.279 138.031 Sodium Chloride 0.9% 250 ml @ 1 MCG/KG/MIN 24.195 mls/hr IV .[id number] [facility] Rx #:[id number] Potassium Chloride 20 meq 200 In Water For Injection 1 100ml.bag @ 50 mls/hr IVPB Q2H [facility] Rx#: [id number] propofoL 1,000 mg In 86.519 61.249 Empty Bag 1 bag @ 15 MCG/ KG/MIN 5.715 mls/hr IV . [id number] [facility] Rx#:[id number] Blood Product 310 Rc Irr As1 Unit 310 [id number] Output: Drainage 255 80 Abdomen 255 80 Urine 380 170 140 Estimated Blood Loss 50 Other: Voiding Method Indwelling Catheter Indwelling Catheter Weight 78.6 kg ABP, PAP, CO, CI - Last 8 Hours Arterial Blood Pressure 120/48 Arterial Blood Pressure 115/50 Arterial Blood Pressure 125/51 Arterial Blood Pressure 125/54 Arterial Blood Pressure 115/50 Arterial Blood Pressure 107/48 Arterial Blood Pressure 118/54 Arterial Blood Pressure 120/49 Arterial Blood Pressure 112/48 Arterial Blood Pressure 110/48 Arterial Blood Pressure 102/44 Arterial Blood Pressure 104/48 Arterial Blood Pressure 122/58 Arterial Blood Pressure 119/52 Arterial Blood Pressure 111/50 Arterial Blood Pressure 124/52 Arterial Blood Pressure 108/48 Arterial Blood Pressure 114/49 Arterial Blood Pressure 110/47 Arterial Blood Pressure 91/45 Arterial Blood Pressure 119/53 Arterial Blood Pressure 126/57 Arterial Blood Pressure 125/54 Arterial Blood Pressure 126/52 Arterial Blood Pressure 120/52 Arterial Blood Pressure 112/50 The patient appeared well nourished and normally developed. Vital signs as documented. The patient intubated on the mechanical ventilator. The patient sedated on propofol. Orogastric and orotracheal tube are both in place. Head exam is unremarkable. No scleral icterus or corneal arcus noted. Neck is without jugular venous distension, thyromegaly, or carotid bruits. Carotid upstrokes are brisk bilaterally. Lungs are clear to auscultation and percussion. Postthoracotomy changes over the anterior chest area. Cardiac exam reveals the PMI to be normally sized and situated. Rhythm is regular. First and second heart sounds normal. No murmurs, rubs or gallops. Abdominal exam reveals postsurgical changes and the patient has a colostomy. Surgical wound site is dry clean and intact. The colostomy is pink Extremities are nonedematous and both femoral and pedal pulses are normal. Examination of the skin revealed no evidence of significant rashes, suspicious appearing nevi or other concerning lesions. Neurologically, the patient is sedated and calm and comfortable, synchronous on mechanical ventilator. Results - Laboratory Findings CBC and BMP: 12/27/24 04:30 12/27/24 04:30 ABG ABG pH 7.49 (7.35-7.45) H 12/27/24 04:22 ABG pCO2 31 mmHg (35-45) L 12/27/24 04:22 ABG pO2 175 mmHg (83-108) H 12/27/24 04:22 ABG O2 Saturation 99.9 % (94-97) H 12/27/24 04:22 Abnormal lab findings: Abnormal Labs 12/24/24 12/24/24 12/24/24 16:16 16:16 16:16 WBC RBC 2.68 L Hgb 8.3 L Hct 25.8 L RDW 18.1 H Plt Count Neutrophils # (Manual) 8.70 H Lymphocytes # (Manual) 0.40 L Monocytes # (Manual) Metamyelocytes # (Man) 0.10 H Myelocytes # (Manual) 0.10 H NRBC/100 WBC Diff ABG pH ABG pCO2 ABG pO2 ABG O2 Saturation Hemoglobin Sodium 125 L Potassium Chloride 95 L Carbon Dioxide 14 L BUN 44 H Creatinine 1.46 H Glucose 311 H POC Glucose (mg/dL) Hemoglobin A1c Plasma Lactic Acid Aki 3.0 H* Calcium AST 49 H Alkaline Phosphatase Total Protein Albumin 3.2 L Triglycerides Crossmatch 12/24/24 12/25/24 12/25/24 21:08 05:22 05:38 WBC 3.57 L RBC 1.96 L Hgb 6.0 A* Hct 18.2 A* RDW 18.0 H Plt Count Neutrophils # (Manual) Lymphocytes # (Manual) 0.68 L Monocytes # (Manual) 0.11 L Metamyelocytes # (Man) Myelocytes # (Manual) NRBC/100 WBC Diff 0.02 H ABG pH ABG pCO2 ABG pO2 ABG O2 Saturation Hemoglobin Sodium 127 L Potassium Chloride Carbon Dioxide 15 L BUN 49 H Creatinine 1.68 H Glucose 115 H POC Glucose (mg/dL) 251 H Hemoglobin A1c Plasma Lactic Acid Aki Calcium AST Alkaline Phosphatase Total Protein Albumin Triglycerides Crossmatch 12/25/24 12/25/24 12/25/24 05:38 06:33 11:12 WBC RBC Hgb Hct RDW Plt Count Neutrophils # (Manual) Lymphocytes # (Manual) Monocytes # (Manual) Metamyelocytes # (Man) Myelocytes # (Manual) NRBC/100 WBC Diff ABG pH ABG pCO2 ABG pO2 ABG O2 Saturation Hemoglobin Sodium Potassium Chloride Carbon Dioxide BUN Creatinine Glucose POC Glucose (mg/dL) 114 H Hemoglobin A1c 8.6 H Plasma Lactic Acid Aki Calcium AST Alkaline Phosphatase Total Protein Albumin Triglycerides Crossmatch See Detail 12/25/24 12/25/24 12/25/24 11:51 16:48 20:51 WBC RBC Hgb Hct RDW Plt Count Neutrophils # (Manual) Lymphocytes # (Manual) Monocytes # (Manual) Metamyelocytes # (Man) Myelocytes # (Manual) NRBC/100 WBC Diff ABG pH ABG pCO2 ABG pO2 ABG O2 Saturation Hemoglobin Sodium Potassium Chloride Carbon Dioxide BUN Creatinine Glucose POC Glucose (mg/dL) 121 H 189 H 233 H Hemoglobin A1c Plasma Lactic Acid Aki Calcium AST Alkaline Phosphatase Total Protein Albumin Triglycerides Crossmatch 12/26/24 12/26/24 12/26/24 04:31 04:31 06:12 WBC 2.95 L RBC 2.39 L Hgb 7.4 L Hct 21.6 L RDW 17.8 H Plt Count 114 L Neutrophils # (Manual) Lymphocytes # (Manual) 0.35 L Monocytes # (Manual) 0.15 L Metamyelocytes # (Man) Myelocytes # (Manual) NRBC/100 WBC Diff ABG pH ABG pCO2 ABG pO2 ABG O2 Saturation Hemoglobin Sodium 126 L Potassium Chloride 96 L Carbon Dioxide 20 L BUN 47 H Creatinine 1.47 H Glucose 277 H POC Glucose (mg/dL) 320 H Hemoglobin A1c Plasma Lactic Acid Aki Calcium 8.3 L AST Alkaline Phosphatase Total Protein 4.6 L Albumin 2.2 L Triglycerides 422.00 H Crossmatch 12/26/24 12/26/24 12/26/24 11:36 17:11 17:40 WBC RBC Hgb Hct RDW Plt Count Neutrophils # (Manual) Lymphocytes # (Manual) Monocytes # (Manual) Metamyelocytes # (Man) Myelocytes # (Manual) NRBC/100 WBC Diff ABG pH ABG pCO2 ABG pO2 ABG O2 Saturation Hemoglobin Sodium 130 L Potassium 3.4 L Chloride Carbon Dioxide BUN 34 H Creatinine 1.13 H Glucose 171 H POC Glucose (mg/dL) 314 H 200 H Hemoglobin A1c Plasma Lactic Acid Aki Calcium 7.0 L AST 13 L Alkaline Phosphatase 37 L Total Protein 3.5 L Albumin 1.9 L Triglycerides Crossmatch 12/26/24 12/26/24 12/27/24 21:42 22:55 04:22 WBC 19.4 H RBC 3.19 L Hgb 9.5 L Hct 29.2 L RDW 16.8 H Plt Count 107 L D Neutrophils # (Manual) Lymphocytes # (Manual) Monocytes # (Manual) Metamyelocytes # (Man) Myelocytes # (Manual) NRBC/100 WBC Diff ABG pH 7.49 H ABG pCO2 31 L ABG pO2 175 H ABG O2 Saturation 99.9 H Hemoglobin 8.5 L Sodium Potassium Chloride Carbon Dioxide BUN Creatinine Glucose POC Glucose (mg/dL) 333 H Hemoglobin A1c Plasma Lactic Acid Aki Calcium AST Alkaline Phosphatase Total Protein Albumin Triglycerides Crossmatch 12/27/24 12/27/24 12/27/24 04:30 04:30 05:56 WBC 14.7 H RBC 2.93 L Hgb 8.7 L Hct 26.3 L RDW 17.7 H Plt Count 73 L Neutrophils # (Manual) 13.50 H Lymphocytes # (Manual) Monocytes # (Manual) Metamyelocytes # (Man) 0.15 H Myelocytes # (Manual) NRBC/100 WBC Diff ABG pH ABG pCO2 ABG pO2 ABG O2 Saturation Hemoglobin Sodium 127 L Potassium Chloride Carbon Dioxide BUN 36 H Creatinine 1.17 H Glucose 316 H POC Glucose (mg/dL) 363 H Hemoglobin A1c Plasma Lactic Acid Aki Calcium 7.4 L AST Alkaline Phosphatase Total Protein 3.5 L Albumin 1.8 L Triglycerides Crossmatch 12/27/24 12:02 WBC RBC Hgb Hct RDW Plt Count Neutrophils # (Manual) Lymphocytes # (Manual) Monocytes # (Manual) Metamyelocytes # (Man) Myelocytes # (Manual) NRBC/100 WBC Diff ABG pH ABG pCO2 ABG pO2 ABG O2 Saturation Hemoglobin Sodium Potassium Chloride Carbon Dioxide BUN Creatinine Glucose POC Glucose (mg/dL) 351 H Hemoglobin A1c Plasma Lactic Acid Aki Calcium AST Alkaline Phosphatase Total Protein Albumin Triglycerides Crossmatch - Diagnostic Findings Chest x-ray: image reviewed Assessment and Plan Plan: Septic shock with gram-negative bacteremia secondary to a complicated sigmoid diverticulitis with pneumoperitoneum and intra-abdominal abscess Hypotension secondary to above Acute hypoxic respiratory failure, secondary to above Acute sigmoid diverticulitis with pneumoperitoneum and intra-abdominal abscess. The patient is status post expiratory laparotomy, drainage of an interloop abscess and sigmoid colectomy and diverting colostomy. The patient is postop day #1. Left lower extremity DVT extending from the left iliac vein into the popliteal vein. Multiple myeloma, pathologic fracture of the L2 vertebral body and osseous ext ension of the tumor causing left neural foraminal narrowing at the level of L1- L2 and L2-L3. The patient was started on treatment with palliative radiation therapy and following that she was started on RVD treatment and she completed cycle 2 on 12/24/2024. Coronary artery disease with previous bypass surgery Diabetes mellitus type 2 Non-anion gap metabolic acidosis, treated with a bicarb infusion Acute kidney injury, improving and the creatinine is down to 1.17 Thrombocytopenia with ongoing drop in the platelet. Rule out underlying thrombocytopenia secondary to chemotherapy effect/DIC related to sepsis Hypertension Hyperlipidemia Previous history of osteoarthritis and left knee replacement Hyponatremia Chronic anemia secondary to myeloma Acute leukocytosis, improving Plan Continue ventilator support Continue IV fluids and the patient will be switched to normal citrate of 75 cc an hour IV Zosyn as an empiric antibiotic coverage for now Follow-up blood culture which is currently positive for gram-negative bacillus Switch 3 pressors to norepinephrine infusion Put the patient on stress dose hydrocortisone as the patient has received Decadron on outpatient basis and the patient will be placed on hydrocortisone 100 mg every 8 hours Start the patient on Lantus 15 units daily and sliding scale coverage Switch Synthroid to IV 75 mcg every 24 hours IV Protonix IVC filter request to be placed within the next 24 hours. This was discussed with the vascular surgeon and general surgery. Not a candidate for anticoagulation based on underlying thrombocytopenia and postsurgical state May require TPN over the next 24 to 48 hours Condition is critical and will continue to follow make further recommendations based on her progress. Evaluation was done and 40 minutes. Time with Patient: Greater than 30
[2024-12-27] MEDS: MVI, ADULT NO.4 WITH VIT K 10 ML, TRACE (CONC-1ML/DOSE) 1 ML in AMINO ACID 5%-D20W+LYTE... IV SCH (13:20)
--- NOTE | 2024-12-27 15:29 | P.PN ---
Subjective Progress Note Date: 12/27/24 Principal diagnosis: Reason for follow-up is bacteremia perforated diverticulitis and abscess Patient is a 79-year-old female with a past medical history significant for Coronary Artery Disease (CAD), Cancer, Diabetes Mellitus, Hyperlipidemia, Hypertension, Thyroid Disorder presenting to the hospital for evaluation of abnormal CT that was done for abdominal pain with concern for perforated sigmoid diverticulitis did have a positive blood culture with E. coli probably this consultation.Patient is status post laparotomy sigmoid colectomy drainage of the interloop abscess and proximal omentectomy patient subsequent has been admitted to ICU on the vent. On today's evaluation that is 12/27/2024, Patient is afebrile patient is currently intubated on the vent FiO2 at 40% patient is hemodynamic stable not requiring any pressor support no significant paralyzation to the ED or any other changes reported by the nursing staff. Patient white count is down to 14.7 creatinine is 1.17 Objective - Vital Signs Vital signs: Vital Signs Temp 99.5 F 12/27/24 11:30 Pulse 78 12/27/24 12:10 Resp 22 12/27/24 11:00 BP 107/70 12/27/24 11:15 Pulse Ox 100 12/27/24 11:30 FiO2 40 12/27/24 11:58 Intake & Output 12/26/24 12/27/24 12/27/24 18:59 06:59 18:59 Intake Total 1500 2117.417 928.463 Output Total 280 575 220 Balance 1220 1542.417 708.463 Weight 78.6 kg Intake: IV 1500 1100 725 Dextrose 5% in Water 1, 1100 300 000 ml @ 100 mls/hr IV . [id number] [facility] with Sodium Bicarb (1 Meq/ml) 150 ml Rx#:[id number] Magnesium Sulfate-D5w Pmx 100 1 gm In Dextrose/Water 1 100ml.bag @ 100 mls/hr IVPB ONCE ONE Rx#: [id number] Piperacillin-Tazobactam 3 100 .375 gm In Sodium Chloride 0.9% 100 ml @ 25 mls/hr IVPB Q8H [facility] Rx#: [id number] Sodium Chloride 0.9% 1, 225 000 ml @ 75 mls/hr IV . [id number] [facility] Rx#:[id number] Intake, IV Titration 707.417 203.463 Amount Magnesium Sulfate-D5w Pmx 100 1 gm In Dextrose/Water 1 100ml.bag @ 100 mls/hr IVPB ONCE ONE Rx#: [id number] Norepinephrine 8 mg In 4.183 Sodium Chloride 0.9% 250 ml @ 0.03 MCG/KG/MIN 4. 563 mls/hr IV .Q24H [facility] Rx#:[id number] Phenylephrine 40 mg In 320.898 138.031 Sodium Chloride 0.9% 250 ml @ 1 MCG/KG/MIN 24.195 mls/hr IV .[id number] [facility] Rx #:[id number] Potassium Chloride 20 meq 200 In Water For Injection 1 100ml.bag @ 50 mls/hr IVPB Q2H [facility] Rx#: [id number] propofoL 1,000 mg In 86.519 61.249 Empty Bag 1 bag @ 15 MCG/ KG/MIN 5.715 mls/hr IV . [id number] [facility] Rx#:[id number] Blood Product 0 310 Rc Irr As1 Unit 0 310 [id number] Output: Drainage 255 80 Abdomen 255 80 Urine 230 320 140 Estimated Blood Loss 50 Other: Voiding Method External Catheter Indwelling Catheter # Bowel Movements 1 ABP, PAP, CO, CI - Last Documented Arterial Blood Pressure 120/48 - Exam GENERAL DESCRIPTION: An elderly female intubated on the vent RESPIRATORY SYSTEM: Unlabored breathing , decreased breath sounds at bases HEART: S1 S2 regular rate and rhythm , ABDOMEN: Soft , mild tenderness EXTREMITIES: No edema feet - Labs CBC & Chem 7: 12/27/24 04:30 12/27/24 04:30 Labs: Abnormal Lab Results - Last 24 Hours (Table) 12/25/24 12/26/24 12/26/24 Range/Units 11:12 17:11 17:40 WBC (3.8-10.6) k/uL RBC (3.80-5.40) m/uL Hgb (11.4-16.0) gm/dL Hct (34.0-46.0) % RDW (11.5-15.5) % Plt Count (150-450) k/uL Neutrophils # (Manual) (1.3-7.7) k/uL Metamyelocytes # (Man) (0) k/uL ABG pH (7.35-7.45) ABG pCO2 (35-45) mmHg ABG pO2 (83-108) mmHg ABG O2 Saturation (94-97) % Hemoglobin (11.4-16.0) gm/dL Sodium 130 L (137-145) mmol/L Potassium 3.4 L (3.5-5.1) mmol/L BUN 34 H (7-17) mg/dL Creatinine 1.13 H (0.52-1.04) mg/dL Glucose 171 H (74-99) mg/dL POC Glucose (mg/dL) 200 H (70-110) mg/dL Calcium 7.0 L (8.4-10.2) mg/dL AST 13 L (14-36) U/L Alkaline Phosphatase 37 L (38-126) U/L Total Protein 3.5 L (6.3-8.2) g/dL Albumin 1.9 L (3.5-5.0) g/dL Crossmatch See Detail 12/26/24 12/26/24 12/27/24 Range/Units 21:42 22:55 04:22 WBC 19.4 H (3.8-10.6) k/uL RBC 3.19 L (3.80-5.40) m/uL Hgb 9.5 L (11.4-16.0) gm/dL Hct 29.2 L (34.0-46.0) % RDW 16.8 H (11.5-15.5) % Plt Count 107 L D (150-450) k/uL Neutrophils # (Manual) (1.3-7.7) k/uL Metamyelocytes # (Man) (0) k/uL ABG pH 7.49 H (7.35-7.45) ABG pCO2 31 L (35-45) mmHg ABG pO2 175 H (83-108) mmHg ABG O2 Saturation 99.9 H (94-97) % Hemoglobin 8.5 L (11.4-16.0) gm/dL Sodium (137-145) mmol/L Potassium (3.5-5.1) mmol/L BUN (7-17) mg/dL Creatinine (0.52-1.04) mg/dL Glucose (74-99) mg/dL POC Glucose (mg/dL) 333 H (70-110) mg/dL Calcium (8.4-10.2) mg/dL AST (14-36) U/L Alkaline Phosphatase (38-126) U/L Total Protein (6.3-8.2) g/dL Albumin (3.5-5.0) g/dL Crossmatch 12/27/24 12/27/24 12/27/24 Range/Units 04:30 04:30 05:56 WBC 14.7 H (3.8-10.6) k/uL RBC 2.93 L (3.80-5.40) m/uL Hgb 8.7 L (11.4-16.0) gm/dL Hct 26.3 L (34.0-46.0) % RDW 17.7 H (11.5-15.5) % Plt Count 73 L (150-450) k/uL Neutrophils # (Manual) 13.50 H (1.3-7.7) k/uL Metamyelocytes # (Man) 0.15 H (0) k/uL ABG pH (7.35-7.45) ABG pCO2 (35-45) mmHg ABG pO2 (83-108) mmHg ABG O2 Saturation (94-97) % Hemoglobin (11.4-16.0) gm/dL Sodium 127 L (137-145) mmol/L Potassium (3.5-5.1) mmol/L BUN 36 H (7-17) mg/dL Creatinine 1.17 H (0.52-1.04) mg/dL Glucose 316 H (74-99) mg/dL POC Glucose (mg/dL) 363 H (70-110) mg/dL Calcium 7.4 L (8.4-10.2) mg/dL AST (14-36) U/L Alkaline Phosphatase (38-126) U/L Total Protein 3.5 L (6.3-8.2) g/dL Albumin 1.8 L (3.5-5.0) g/dL Crossmatch 12/27/24 Range/Units 12:02 WBC (3.8-10.6) k/uL RBC (3.80-5.40) m/uL Hgb (11.4-16.0) gm/dL Hct (34.0-46.0) % RDW (11.5-15.5) % Plt Count (150-450) k/uL Neutrophils # (Manual) (1.3-7.7) k/uL Metamyelocytes # (Man) (0) k/uL ABG pH (7.35-7.45) ABG pCO2 (35-45) mmHg ABG pO2 (83-108) mmHg ABG O2 Saturation (94-97) % Hemoglobin (11.4-16.0) gm/dL Sodium (137-145) mmol/L Potassium (3.5-5.1) mmol/L BUN (7-17) mg/dL Creatinine (0.52-1.04) mg/dL Glucose (74-99) mg/dL POC Glucose (mg/dL) 351 H (70-110) mg/dL Calcium (8.4-10.2) mg/dL AST (14-36) U/L Alkaline Phosphatase (38-126) U/L Total Protein (6.3-8.2) g/dL Albumin (3.5-5.0) g/dL Crossmatch Microbiology - Last 24 Hours (Table) 12/24/24 16:47 Blood Culture Gram Stain - Final Blood Blood Culture - Final Escherichia coli Molecular ID Assessment and Plan (1) Perforation of sigmoid colon due to diverticulitis Current Visit: Yes Status: Acute Code(s): K57.20 - DVTRCLI OF LG INT W PERFORATION AND ABSCESS W/O BLEEDING SNOMED Code(s): 9657140848848703 (2) Bacteremia Current Visit: Yes Status: Acute Code(s): R78.81 - BACTEREMIA SNOMED Code(s): 0120963 Plan: 1patient with E. coli bacteremia source likely abdominal in this patient with evidence of abnormal CT with free air concerning for perforated diverticulitis but did not mention any abscess, patient did have a repeat CT that has been suggestive of perforated diverticulitis and abscess and patient status post laparotomy sigmoid colectomy drainage of the interloop abscess procedure completed on 12/26/2024 2patient is afebrile patient white count is trending down we will continue with the Zosyn and monitor clinical course closely Dictation was produced using [employer] dictation software. please excuse any grammatical, word or spelling errors. Time with Patient: Less than 30
[2024-12-27 16:23] LABS: Glucose,Whole Blood 373 mg/dL (70-110)
[2024-12-27 20:12] LABS: Glucose,Whole Blood 409 mg/dL (70-110)
[2024-12-27] MEDS: DEXTROSE 5% IN WATER 100 ML with AMIODARONE 150 MG IV ONE (20:16)
[2024-12-27] MEDS: AMIODARONE 360 MG in DEXTROSE 5% IN WATER 200 ML IV ONE (21:11)
[2024-12-27 22:03] LABS: Glucose,Whole Blood 409 mg/dL (70-110)
[2024-12-27] MEDS: INSULIN LISPRO (HumaLOG) 100 UNIT/ML 10 mL VL SQ ONE (23:07)
[2024-12-27 23:44] LABS: Glucose,Whole Blood 420 mg/dL (70-110)
[2024-12-28] MEDS: INSULIN REGULAR 100 UNIT in SODIUM CHLORIDE 0.9% 100 ML IV SCH (00:17)
[2024-12-28 01:57] LABS: Glucose,Whole Blood 386 mg/dL (70-110)
[2024-12-28] MEDS: AMIODARONE 450 MG in DEXTROSE 5% IN WATER 250 ML IV SCH (02:37)
[2024-12-28 02:54] LABS: Glucose,Whole Blood 375 mg/dL (70-110)
[2024-12-28 03:59] LABS: Glucose,Whole Blood 350 mg/dL (70-110)
[2024-12-28 04:20] LABS: ABG Base Excess -1.2 mmol/L; ABG HCO3 23 mmol/L (21-25); ABG Oxygen Saturation 99.6 % (94-97); ABG PCO2 33 mmHg (35-45); ABG PH 7.45 (7.35-7.45); ABG PO2 150 mmHg (83-108); ABG TCO2 24 mmol/L (19-24)
[2024-12-28 04:23] LABS: Allen Test Performed? No
[2024-12-28 04:41] LABS: Anisocytosis Slight; Basophils # (A) 0.1 k/uL (0-0.2); Basophils % (A) 1 %; Eosinophils # (A) 0.1 k/uL (0-0.7); Eosinophils % (A) 1 %; HCT 21.1 % (34.0-46.0); Lymphocytes # (A) 0.2 k/uL (1.0-4.8); Lymphocytes % (A) 1 %; MCHC 34.2 g/dL (31.0-37.0); MCV 90.6 fL (80.0-100.0); Mean Platelet Volume 11.7; Monocytes # (A) 0.3 k/uL (0-1.0); Monocytes % (A) 2 %; Neutrophils # (A) 13.9 k/uL (1.3-7.7); Neutrophils % (A) 95 %; Poikilocytosis Slight; RBC 2.33 m/uL (3.80-5.40); RDW 17.8 % (11.5-15.5); WBC 14.7 k/uL (3.8-10.6)
[2024-12-28 04:42] LABS: HGB 7.2 gm/dL (11.4-16.0); Platelet Count 49 k/uL (150-450)
[2024-12-28 05:08] LABS: Glucose,Whole Blood 301 mg/dL (70-110)
[2024-12-28 05:14] LABS: ALT 11 U/L (4-34); AST 13 U/L (14-36); African American GFR (CKD) 62 (>60 ml/min/1.73 sqM); Albumin 1.7 g/dL (3.5-5.0); Alkaline Phosphatase 53 U/L (38-126); Anion Gap 8 mmol/L; Blood Urea Nitrogen 31 mg/dL (7-17); Calcium 8.1 mg/dL (8.4-10.2); Carbon Dioxide 22 mmol/L (22-30); Chloride 98 mmol/L (98-107); Glucose 285 mg/dL (74-99); Magnesium 2.1 mg/dL (1.6-2.3); Non-African American GFR(CKD) 54 (>60 ml/min/1.73 sqM); Potassium 2.9 mmol/L (3.5-5.1); Sodium 128 mmol/L (137-145); Total Bilirubin 0.7 mg/dL (0.2-1.3); Total Protein 3.6 g/dL (6.3-8.2)
[2024-12-28 06:19] LABS: Glucose,Whole Blood 265 mg/dL (70-110)
[2024-12-28] MEDS: POTASSIUM CHLORIDE 20 MEQ in WATER FOR INJECTION 1 100ML.BAG IVPB SCH (07:02)
[2024-12-28 07:10] LABS: Glucose,Whole Blood 232 mg/dL (70-110)
[2024-12-28] MEDS: IV FLUID CONTINUATION 1,000 ML IV ONE (08:00)
[2024-12-28 08:04] LABS: Glucose,Whole Blood 398 mg/dL (70-110)
[2024-12-28] MEDS: LIDOCAINE 1% INJ 10MG/ML (20 ML MDV) SQ ONE (08:05)
[2024-12-28] MEDS: HEPARIN SODIUM,PORCINE 10,000 UNIT in SODIUM CHLORIDE 0.9% 1,000 ML IRRIGATION ONE (08:33)
[2024-12-28] MEDS: IOPAMIDOL-250 100ML BTL IVP ONE (08:33)
--- NOTE | 2024-12-28 09:03 | P.OP ---
Date of Procedure: 12/28/24 Preoperative Diagnosis: Acute left lower extremity DVT, blood loss anemia, unable to anticoagulate Postoperative Diagnosis: Same Procedure(s) Performed: Ultrasound-guided right common femoral vein access Inferior vena cava venogram with placement of IVC filter Ultrasound-guided left basilic vein peripherally inserted central venous catheter placement Anesthesia: NORMA Surgeon: Yaya Blackwood Estimated Blood Loss (ml): 5 Pathology: none sent Condition: stable Disposition: ICU Indications for Procedure: 79-year-old female with history of multiple myeloma, recently diagnosed with acute DVT of the left lower extremity extending from the iliac vein to the posterior tibial vein and was started on oral anticoagulation at that time. Since then she has been admitted to the hospital for peritonitis and transverse colon perforation and underwent emergency exploratory laparotomy and resection. Due to her current status and critical nature as well as inability to be anticoagulated per hematology and pulmonology we were asked to place IVC filter. She is also in need of TPN and therefore a PICC line was asked to be placed as well. Description of Procedure: After written and informed consent was obtained the patient's family and all risks benefits and complications were described the patient was brought to the [facility] and laid in a supine position. The area of the groins were prepped and draped in usual sterile fashion. Utilizing ultrasound the right femoral vein was located and shown to be patent and compressible without any visible thrombus. Utilizing ultrasound and Seldinger technique the vein was accessed and a 035 guidewire was placed followed by a 6-Irish sheath. Catheter was then placed within the inferior vena cava and IVC venogram was obtained demonstrating visualization of the renal veins. A Paula filter was then chosen to be placed and the deployment sheath was guided over the guidewire after removal of the 6- Irish sheath. The filter was then placed just beneath the renal veins and deployed in normal fashion. Once deployed final venogram was obtained demonstrating good placement of the filter without any tilting. All guidewires and catheters were then removed and pressure was held for hemostasis. The area was cleansed and dressings were placed. Attention was then placed to the left arm. Under ultrasound guidance the basilic vein was visualized and demonstrated good compressibility without any visible thrombus. Under ultrasound guidance the vein was cannulated and a wire was placed under fluoroscopic guidance into the superior vena cava. Breakaway sheath was then placed. Catheter was then cut to appropriate length which was 44 cm. Wire was removed and catheter was placed under direct visualization of fluoroscopy. Shown to be in good position and it louann and flushed easily. It was then hep-locked. Patient tolerated procedure well was sent back to the ICU for recovery.
[2024-12-28 09:04] LABS: Glucose,Whole Blood 148 mg/dL (70-110)
[2024-12-28 09:30] LABS: Anisocytosis Slight; MCH 30.9 pg (25.0-35.0); MCHC 34.6 g/dL (31.0-37.0); MCV 89.4 fL (80.0-100.0); Mean Platelet Volume 11.4; Poikilocytosis Slight; RBC 2.15 m/uL (3.80-5.40); RDW 17.6 % (11.5-15.5); WBC 13.2 k/uL (3.8-10.6)
[2024-12-28 09:38] LABS: HCT 19.3 % (34.0-46.0); HGB 6.7 gm/dL (11.4-16.0)
--- NOTE | 2024-12-28 09:47 | XR ---
EXAMINATION TYPE: XR chest 1V portable DATE OF EXAM: 12/28/2024 4:20 AM COMPARISON: 12/27/2024 CLINICAL INDICATION: Female, 79 years old with history of Tube placement, FINDINGS: Indwelling tubes and catheters are unchanged. No change in scattered opacities.. Stable appearance of the cardio-mediastinal structures at this time. IMPRESSION: 1. Stable portable chest. Clinical correlation and follow up until resolution is recommended. [facility], , 12/28/2024 9:45 AM
[2024-12-28 09:52] LABS: Glucose,Whole Blood 140 mg/dL (70-110)
[2024-12-28 09:58] LABS: Glucose,Whole Blood 176 mg/dL (70-110)
--- NOTE | 2024-12-28 10:00 | IR ---
Fluoroscopy History: IR cvc insert >=5 years left basilic vein, 44cm, TPN ABX, 1.4min fluoro, 34.029Cqhh1 [facility], , 12/28/2024 9:58 AM
--- NOTE | 2024-12-28 10:02 | IR ---
Fluoroscopy History: DVT DVT, 1.4min fluoro, 34.530Gker8 [facility], , 12/28/2024 9:59 AM
[2024-12-28 10:03] LABS: Platelet Count 47 k/uL (150-450)
--- NOTE | 2024-12-28 11:00 | P.PN ---
Subjective Progress Note Date: 12/28/24 SURGICAL PROGRESS NOTE CHIEF COMPLAINT: Perforated diverticulitis with abscess HISTORY OF PRESENT ILLNESS: Patient in the ICU intubated and on mechanical ventilation. Postop day #2 status post sigmoid colectomy, drainage of interloop abscess and proximal omentectomy. She is status post IVC filter today with vascular surgery. Repeat hemoglobin of 6.7 and will receive a unit of blood. She is on TPN for nutrition support. Potassium of 2.9 receiving supplement. MILADIS drain serosanguineous output. Afebrile. WBC is 13.2 platelets 47 creatinine improved to 1.01 sodium 128 PHYSICAL EXAM: VITAL SIGNS: Reviewed. GENERAL: Well-developed in no acute distress. ABDOMEN: Soft. Nondistended. Midline incision dressing saturated with blood. Ostomy no output. NEUROLOGIC: Intubated and sedated ASSESSMENT: 1. Perforated diverticulitis with abscess 2. History of multiple myeloma PLAN: -Transfuse 1 unit of blood for hemoglobin of 6.7 -Nursing staff to change midline dressing -Continue antibiotics -Potassium being replaced -Continue ICU management Physician [employer] Tr[employer] note has been reviewed by physician. Signing provider agrees with the documented findings, assessment, and plan of care. Objective - Vital Signs Vital signs: Vital Signs Temp 97.6 F 12/28/24 09:00 Pulse 60 12/28/24 10:18 Resp 16 12/28/24 10:00 BP 140/59 12/28/24 10:00 Pulse Ox 100 12/28/24 10:00 FiO2 30 12/28/24 10:21 Intake & Output 12/27/24 12/28/24 12/28/24 18:59 06:59 18:59 Intake Total 2626.860 8912.119 752.262 Output Total 468 535 125 Balance 6027.458 3809.119 627.262 Weight 79.5 kg Intake: IV 1430 1260 590 Dextrose 5% in Water 1, 300 000 ml @ 100 mls/hr IV . [id number] [facility] with Sodium Bicarb (1 Meq/ml) 150 ml Rx#:[id number] Magnesium Sulfate-D5w Pmx 100 1 gm In Dextrose/Water 1 100ml.bag @ 100 mls/hr IVPB ONCE ONE Rx#: [id number] Mvi, Adult No.4 with Vit 180 360 60 K 10 ml Trace (Conc-1Ml/ Dose) 1 ml In Amino Acid 5%-D20w+Lytes*E* 1,000 ml @ 30 mls/hr IV .Q24H [facility] Rx#:[id number] Piperacillin-Tazobactam 3 100 100 .375 gm In Sodium Chloride 0.9% 100 ml @ 25 mls/hr IVPB Q8H [facility] Rx#: [id number] Potassium Chloride 20 meq 200 In Water For Injection 1 100ml.bag @ 50 mls/hr IVPB Q2H [facility] Rx#: [id number] Sodium Chloride 0.9% 1, 750 900 150 000 ml @ 75 mls/hr IV . [id number] [facility] Rx#:[id number] Intake, IV Titration 346.459 899.119 162.262 Amount Amiodarone 360 mg In 199.8 Dextrose 5% in Water 200 ml @ 1 MG/MIN 33.333 mls/ hr IV .Q6H [facility] Rx#: [id number] Amiodarone 450 mg In 83.25 Dextrose 5% in Water 250 ml @ 0.5 MG/MIN 16.667 mls/hr IV .Q15H [facility] Rx#: [id number] Dextrose 5% in Water 100 100 ml @ 618 mls/hr IV .Q10M ONE with Amiodarone 150 mg Rx#:[id number] Insulin Regular 100 unit 79.51 54.917 In Sodium Chloride 0.9% 100 ml @ Titrate IV .Q0M [facility] Rx#:[id number] Norepinephrine 8 mg In 102.281 228.951 26.060 Sodium Chloride 0.9% 250 ml @ 0.03 MCG/KG/MIN 4. 563 mls/hr IV .Q24H [facility] Rx#:[id number] Phenylephrine 40 mg In 138.031 Sodium Chloride 0.9% 250 ml @ 1 MCG/KG/MIN 24.195 mls/hr IV .[id number] [facility] Rx #:[id number] propofoL 1,000 mg In 106.147 207.608 81.285 Empty Bag 1 bag @ 15 MCG/ KG/MIN 5.715 mls/hr IV . [id number] [facility] Rx#:[id number] Output: Drainage 80 Abdomen 80 Urine 388 535 125 Other: Voiding Method Indwelling Catheter Indwelling Catheter ABP, PAP, CO, CI - Last Documented Arterial Blood Pressure 156/57 - Labs CBC & Chem 7: 12/28/24 09:03 12/28/24 04:20 Labs: Abnormal Lab Results - Last 24 Hours (Table) 12/25/24 12/25/24 12/27/24 Range/Units 05:38 11:12 12:02 WBC (3.8-10.6) k/uL RBC (3.80-5.40) m/uL Hgb (11.4-16.0) gm/dL Hct (34.0-46.0) % RDW (11.5-15.5) % Plt Count (150-450) k/uL Neutrophils # (1.3-7.7) k/uL Lymphocytes # (1.0-4.8) k/uL Promyelocytes # (Man) 0.04 H (0) k/uL ABG pCO2 (35-45) mmHg ABG pO2 (83-108) mmHg ABG O2 Saturation (94-97) % Hemoglobin (11.4-16.0) gm/dL Sodium (137-145) mmol/L Potassium (3.5-5.1) mmol/L BUN (7-17) mg/dL Glucose (74-99) mg/dL POC Glucose (mg/dL) 351 H (70-110) mg/dL Calcium (8.4-10.2) mg/dL AST (14-36) U/L Total Protein (6.3-8.2) g/dL Albumin (3.5-5.0) g/dL Triglycerides (0.00-149.00) mg/dL Crossmatch See Detail 12/27/24 12/27/24 12/27/24 Range/Units 16:22 20:11 22:01 WBC (3.8-10.6) k/uL RBC (3.80-5.40) m/uL Hgb (11.4-16.0) gm/dL Hct (34.0-46.0) % RDW (11.5-15.5) % Plt Count (150-450) k/uL Neutrophils # (1.3-7.7) k/uL Lymphocytes # (1.0-4.8) k/uL Promyelocytes # (Man) (0) k/uL ABG pCO2 (35-45) mmHg ABG pO2 (83-108) mmHg ABG O2 Saturation (94-97) % Hemoglobin (11.4-16.0) gm/dL Sodium (137-145) mmol/L Potassium (3.5-5.1) mmol/L BUN (7-17) mg/dL Glucose (74-99) mg/dL POC Glucose (mg/dL) 373 H 409 H 409 H (70-110) mg/dL Calcium (8.4-10.2) mg/dL AST (14-36) U/L Total Protein (6.3-8.2) g/dL Albumin (3.5-5.0) g/dL Triglycerides (0.00-149.00) mg/dL Crossmatch 12/27/24 12/28/24 12/28/24 Range/Units 23:42 00:56 01:56 WBC (3.8-10.6) k/uL RBC (3.80-5.40) m/uL Hgb (11.4-16.0) gm/dL Hct (34.0-46.0) % RDW (11.5-15.5) % Plt Count (150-450) k/uL Neutrophils # (1.3-7.7) k/uL Lymphocytes # (1.0-4.8) k/uL Promyelocytes # (Man) (0) k/uL ABG pCO2 (35-45) mmHg ABG pO2 (83-108) mmHg ABG O2 Saturation (94-97) % Hemoglobin (11.4-16.0) gm/dL Sodium (137-145) mmol/L Potassium (3.5-5.1) mmol/L BUN (7-17) mg/dL Glucose (74-99) mg/dL POC Glucose (mg/dL) 420 H 398 H 386 H (70-110) mg/dL Calcium (8.4-10.2) mg/dL AST (14-36) U/L Total Protein (6.3-8.2) g/dL Albumin (3.5-5.0) g/dL Triglycerides (0.00-149.00) mg/dL Crossmatch 12/28/24 12/28/24 12/28/24 Range/Units 02:52 03:31 03:58 WBC (3.8-10.6) k/uL RBC (3.80-5.40) m/uL Hgb (11.4-16.0) gm/dL Hct (34.0-46.0) % RDW (11.5-15.5) % Plt Count (150-450) k/uL Neutrophils # (1.3-7.7) k/uL Lymphocytes # (1.0-4.8) k/uL Promyelocytes # (Man) (0) k/uL ABG pCO2 33 L (35-45) mmHg ABG pO2 150 H (83-108) mmHg ABG O2 Saturation 99.6 H (94-97) % Hemoglobin 6.6 L* (11.4-16.0) gm/dL Sodium (137-145) mmol/L Potassium (3.5-5.1) mmol/L BUN (7-17) mg/dL Glucose (74-99) mg/dL POC Glucose (mg/dL) 375 H 350 H (70-110) mg/dL Calcium (8.4-10.2) mg/dL AST (14-36) U/L Total Protein (6.3-8.2) g/dL Albumin (3.5-5.0) g/dL Triglycerides (0.00-149.00) mg/dL Crossmatch 12/28/24 12/28/24 12/28/24 Range/Units 04:20 04:20 04:20 WBC 14.7 H (3.8-10.6) k/uL RBC 2.33 L (3.80-5.40) m/uL Hgb 7.2 L D (11.4-16.0) gm/dL Hct 21.1 L (34.0-46.0) % RDW 17.8 H (11.5-15.5) % Plt Count 49 L (150-450) k/uL Neutrophils # 13.9 H (1.3-7.7) k/uL Lymphocytes # 0.2 L (1.0-4.8) k/uL Promyelocytes # (Man) (0) k/uL ABG pCO2 (35-45) mmHg ABG pO2 (83-108) mmHg ABG O2 Saturation (94-97) % Hemoglobin (11.4-16.0) gm/dL Sodium 128 L (137-145) mmol/L Potassium 2.9 L (3.5-5.1) mmol/L BUN 31 H (7-17) mg/dL Glucose 285 H (74-99) mg/dL POC Glucose (mg/dL) (70-110) mg/dL Calcium 8.1 L (8.4-10.2) mg/dL AST 13 L (14-36) U/L Total Protein 3.6 L (6.3-8.2) g/dL Albumin 1.7 L (3.5-5.0) g/dL Triglycerides 823.00 H (0.00-149.00) mg/dL Crossmatch 12/28/24 12/28/24 12/28/24 Range/Units 05:07 06:18 07:09 WBC (3.8-10.6) k/uL RBC (3.80-5.40) m/uL Hgb (11.4-16.0) gm/dL Hct (34.0-46.0) % RDW (11.5-15.5) % Plt Count (150-450) k/uL Neutrophils # (1.3-7.7) k/uL Lymphocytes # (1.0-4.8) k/uL Promyelocytes # (Man) (0) k/uL ABG pCO2 (35-45) mmHg ABG pO2 (83-108) mmHg ABG O2 Saturation (94-97) % Hemoglobin (11.4-16.0) gm/dL Sodium (137-145) mmol/L Potassium (3.5-5.1) mmol/L BUN (7-17) mg/dL Glucose (74-99) mg/dL POC Glucose (mg/dL) 301 H 265 H 232 H (70-110) mg/dL Calcium (8.4-10.2) mg/dL AST (14-36) U/L Total Protein (6.3-8.2) g/dL Albumin (3.5-5.0) g/dL Triglycerides (0.00-149.00) mg/dL Crossmatch 12/28/24 12/28/24 12/28/24 Range/Units 09:02 09:03 09:51 WBC 13.2 H (3.8-10.6) k/uL RBC 2.15 L (3.80-5.40) m/uL Hgb 6.7 L* (11.4-16.0) gm/dL Hct 19.3 L* (34.0-46.0) % RDW 17.6 H (11.5-15.5) % Plt Count 47 L (150-450) k/uL Neutrophils # (1.3-7.7) k/uL Lymphocytes # (1.0-4.8) k/uL Promyelocytes # (Man) (0) k/uL ABG pCO2 (35-45) mmHg ABG pO2 (83-108) mmHg ABG O2 Saturation (94-97) % Hemoglobin (11.4-16.0) gm/dL Sodium (137-145) mmol/L Potassium (3.5-5.1) mmol/L BUN (7-17) mg/dL Glucose (74-99) mg/dL POC Glucose (mg/dL) 148 H 140 H (70-110) mg/dL Calcium (8.4-10.2) mg/dL AST (14-36) U/L Total Protein (6.3-8.2) g/dL Albumin (3.5-5.0) g/dL Triglycerides (0.00-149.00) mg/dL Crossmatch 12/28/24 Range/Units 09:56 WBC (3.8-10.6) k/uL RBC (3.80-5.40) m/uL Hgb (11.4-16.0) gm/dL Hct (34.0-46.0) % RDW (11.5-15.5) % Plt Count (150-450) k/uL Neutrophils # (1.3-7.7) k/uL Lymphocytes # (1.0-4.8) k/uL Promyelocytes # (Man) (0) k/uL ABG pCO2 (35-45) mmHg ABG pO2 (83-108) mmHg ABG O2 Saturation (94-97) % Hemoglobin (11.4-16.0) gm/dL Sodium (137-145) mmol/L Potassium (3.5-5.1) mmol/L BUN (7-17) mg/dL Glucose (74-99) mg/dL POC Glucose (mg/dL) 176 H (70-110) mg/dL Calcium (8.4-10.2) mg/dL AST (14-36) U/L Total Protein (6.3-8.2) g/dL Albumin (3.5-5.0) g/dL Triglycerides (0.00-149.00) mg/dL Crossmatch Microbiology - Last 24 Hours (Table) 12/27/24 09:02 Gram Stain - Preliminary Sputum 12/24/24 16:47 Blood Culture Gram Stain - Final Blood Blood Culture - Final Escherichia coli Molecular ID
[2024-12-28 11:18] LABS: Glucose,Whole Blood 110 mg/dL (70-110)
[2024-12-28 12:16] LABS: Glucose,Whole Blood 117 mg/dL (70-110)
[2024-12-28 13:00] LABS: Glucose,Whole Blood 124 mg/dL (70-110)
[2024-12-28] MEDS ORDERED: MVI, ADULT NO.4 WITH VIT K 10 ML, TRACE (CONC-1ML/DOSE) 1 ML in AMINO ACID 5%-D20W+LYTE... IV SCH (13:30)
--- NOTE | 2024-12-28 13:39 | P.PN ---
Subjective Progress Note Date: 12/28/24 Principal diagnosis: Acute hypoxic respiratory failure secondary to septic shock with gram-negative bacteremia and sigmoid diverticulitis with pneumoperitoneum and intra-abdominal abscess. This is a 79-year-old female patient with known history of coronary artery disease and previous bypass surgery and known history of diabetes mellitus type 2 and multiple myeloma and the patient was diagnosed having multiple myeloma back in May 2024 and the patient had significant back pain with pathologic bone marrow infiltration throughout the lumbar spine and pelvic area with a pat hologic fracture of the L2 vertebral body and osseous extension of the tumor causing left neural foraminal narrowing at the level of L1-L2 and L2-L3. The patient was started on treatment with palliative radiation therapy and following that she was started on RVD treatment and she completed cycle 2 on 12/24/2024. Subsequently, the patient gets hospitalized for an extensive left lower extremity DVT involving a clot extending from the left iliac to the popliteal vein and the patient was started on anticoagulation with Eliquis. She was discharged to be readmitted for abdominal pain and this was assumed to be related to constipation. She was discharged to be readmitted for ongoing abdominal pain and the patient was diagnosed having acute diverticulitis. Yesterday, the patient was taken to the operating room as the follow-up CAT scan of the abdomen showed a complicated diverticulitis of the sigmoid colon with perforation and pneumoperitoneum. There was 8 cm gas/fluid collection consiste nt with an abscess. She also had cholelithiasis and diffuse anasarca. In the operating room, the patient was found to have an abdominal abscess that was drained. The patient had sigmoid colectomy and diverting colostomy. Postop, the patient was kept intubated and placed on the mechanical ventilator and she was transferred to the ICU. Noted her anticoagulation is currently on hold and she is not showing any signs of bleeding. He is currently off anticoagulants. Vascular surgery has seen the patient and patient is being contemplated for IVC filter placement. Platelet counts are also low. This morning, she is on propofol at rate of 30, she is on assist-control mode at rate of 16, tidal volume of 350, FiO2 40% with a PEEP of 5. Blood gas showed a pH of 7.48 with a pCO2 of 30 and pO2 175. NG tube output is minimal and fluid balance is +2.7 L of the patient received several fluid boluses yesterday. She remains on Alvin- Synephrine at 1.3 mcg. Producing urine output. White cell count is 14.7, hemoglobin is 8.7 and platelet count is at 73. The non-anion gap metabolic acidosis is improved and the patient serum bicarb is up to 22. Sodium levels at 127. Potassium is at 4.2. LFTs are normal. Blood sugar is at 363. Chest x- ray showed atelectatic changes lung base bilaterally. Orotracheal tube is in good location. Postthoracotomy changes related to previous heart surgery and some pulm vascular congestion is also present. The patient is currently on IV Zosyn. She will be started on TPN for nutritional support within the next 24 to 48 hours. Blood cultures positive for E. coli. Patient was seen today on 12/28/2024, patient remains in the ICU, she is on mechanical ventilation, and the patient just came back from IVC filter placement by vascular surgery. Patient is on assist-control rate of 16 tidal volume 350 FiO2 35% and PEEP of 5 ABG showed a pO2 of 150 pCO2 33 pH of 7.45 hence patient was transitioned to assist-control rate of 12 tidal volume 400 FiO2 30% and PEEP of 5 patient is also receiving a unit of packed RBCs for hemoglobin of 6.7. Requiring multiple drips including norepinephrine at 0.02 mcg/kg/min she is on TPN at 30 cc/h propofol 40 mg/kg/min and amiodarone 0.5 mg/min. Patient is also receiving insulin at 11.1 units/h. Her Solu-Cortef dose was cut down and the patient remains empirically on Zosyn. Today is postoperative day #2, patient is status post colectomy with ostomy and MILADIS drain placement. Again her presentation was mostly a presentation of abdominal sepsis. Chest x-ray today showed mostly bibasilar atelectasis., No evidence of pulmonary edema., And I doubt pneumonia. WBC count today 13.2 hemoglobin 6.7 platelets are 47,000's. Sodium is 128 potassium 2.9 chloride 98 BUN 31 creatinine 1.01 patient has received a total of 3 units of packed RBCs since admission. Blood cultures are positive for E. coli. Sensitive to Zosyn Objective - Vital Signs Vital signs: Vital Signs Temp 94.5 F L 12/28/24 13:12 Pulse 71 12/28/24 13:19 Resp 18 12/28/24 13:12 BP 122/52 12/28/24 13:12 Pulse Ox 98 12/28/24 13:12 FiO2 30 12/28/24 12:55 Intake & Output 12/27/24 12/28/24 12/28/24 18:59 06:59 18:59 Intake Total 9481.313 2707.119 1624.610 Output Total 468 535 230 Balance 6118.771 7901.119 1394.610 Weight 79.5 kg Intake: IV 1430 1260 1105 Dextrose 5% in Water 1, 300 000 ml @ 100 mls/hr IV . [id number] [facility] with Sodium Bicarb (1 Meq/ml) 150 ml Rx#:[id number] Magnesium Sulfate-D5w Pmx 100 1 gm In Dextrose/Water 1 100ml.bag @ 100 mls/hr IVPB ONCE ONE Rx#: [id number] Mvi, Adult No.4 with Vit 180 360 150 K 10 ml Trace (Conc-1Ml/ Dose) 1 ml In Amino Acid 5%-D20w+Lytes*E* 1,000 ml @ 30 mls/hr IV .Q24H [facility] Rx#:[id number] Piperacillin-Tazobactam 3 100 100 .375 gm In Sodium Chloride 0.9% 100 ml @ 25 mls/hr IVPB Q8H [facility] Rx#: [id number] Potassium Chloride 20 meq 400 In Water For Injection 1 100ml.bag @ 50 mls/hr IVPB Q2H [facility] Rx#: [id number] Sodium Chloride 0.9% 1, 750 900 375 000 ml @ 75 mls/hr IV . [id number] [facility] Rx#:[id number] Intake, IV Titration 346.459 899.119 209.610 Amount Amiodarone 360 mg In 199.8 Dextrose 5% in Water 200 ml @ 1 MG/MIN 33.333 mls/ hr IV .Q6H [facility] Rx#: [id number] Amiodarone 450 mg In 83.25 Dextrose 5% in Water 250 ml @ 0.5 MG/MIN 16.667 mls/hr IV .Q15H [facility] Rx#: [id number] Dextrose 5% in Water 100 100 ml @ 618 mls/hr IV .Q10M [facility] with Amiodarone 150 mg Rx#:[id number] Insulin Regular 100 unit 79.51 79.522 In Sodium Chloride 0.9% 100 ml @ Titrate IV .Q0M [facility] Rx#:[id number] Norepinephrine 8 mg In 102.281 228.951 28.418 Sodium Chloride 0.9% 250 ml @ 0.03 MCG/KG/MIN 4. 563 mls/hr IV .Q24H [facility] Rx#:[id number] Phenylephrine 40 mg In 138.031 Sodium Chloride 0.9% 250 ml @ 1 MCG/KG/MIN 24.195 mls/hr IV .[id number] [facility] Rx #:[id number] propofoL 1,000 mg In 106.147 207.608 101.670 Empty Bag 1 bag @ 15 MCG/ KG/MIN 5.715 mls/hr IV . [id number] [facility] Rx#:[id number] Blood Product 310 Rc As-1 Unit 0 [id number] Rc As-1 Unit 310 [id number] Output: Drainage 80 Abdomen 80 Urine 388 535 230 Other: Voiding Method Indwelling Catheter Indwelling Catheter Indwelling Catheter ABP, PAP, CO, CI - Last Documented Arterial Blood Pressure 154/69 - Exam General: Revealed a 79-year-old female intubated mechanically ventilated, sedated, in no distress Head: Atraumatic normocephalic EENT: PERRLA, EOMI, nonicteric, no neck masses, endotracheal tube and orogastric tube are intact. Neck is supple, no neck masses, no JVD, no stridor, no thyromegaly Lungs diminished breath sounds at the bases no rhonchi no wheezes Cardiac: Distant S1-S2, no S3 gallop, no murmur Abdominal: Postsurgical changes and the patient has a colostomy. Surgical wound site is dry clean and intact. The colostomy is pink Extremities: No clubbing edema or cyanosis. Skin: No rashes Neurologically, cannot assess, patient is sedated and mechanically ventilated on propofol Psychiatric: Could not assess. - Labs CBC & Chem 7: 12/28/24 09:03 12/28/24 04:20 Labs: Abnormal Lab Results - Last 24 Hours (Table) 12/25/24 12/25/24 12/27/24 Range/Units 05:38 11:12 16:22 WBC (3.8-10.6) k/uL RBC (3.80-5.40) m/uL Hgb (11.4-16.0) gm/dL Hct (34.0-46.0) % RDW (11.5-15.5) % Plt Count (150-450) k/uL Neutrophils # (1.3-7.7) k/uL Lymphocytes # (1.0-4.8) k/uL Promyelocytes # (Man) 0.04 H (0) k/uL ABG pCO2 (35-45) mmHg ABG pO2 (83-108) mmHg ABG O2 Saturation (94-97) % Hemoglobin (11.4-16.0) gm/dL Sodium (137-145) mmol/L Potassium (3.5-5.1) mmol/L BUN (7-17) mg/dL Glucose (74-99) mg/dL POC Glucose (mg/dL) 373 H (70-110) mg/dL Calcium (8.4-10.2) mg/dL AST (14-36) U/L Total Protein (6.3-8.2) g/dL Albumin (3.5-5.0) g/dL Triglycerides (0.00-149.00) mg/dL Crossmatch See Detail 12/27/24 12/27/24 12/27/24 Range/Units 20:11 22:01 23:42 WBC (3.8-10.6) k/uL RBC (3.80-5.40) m/uL Hgb (11.4-16.0) gm/dL Hct (34.0-46.0) % RDW (11.5-15.5) % Plt Count (150-450) k/uL Neutrophils # (1.3-7.7) k/uL Lymphocytes # (1.0-4.8) k/uL Promyelocytes # (Man) (0) k/uL ABG pCO2 (35-45) mmHg ABG pO2 (83-108) mmHg ABG O2 Saturation (94-97) % Hemoglobin (11.4-16.0) gm/dL Sodium (137-145) mmol/L Potassium (3.5-5.1) mmol/L BUN (7-17) mg/dL Glucose (74-99) mg/dL POC Glucose (mg/dL) 409 H 409 H 420 H (70-110) mg/dL Calcium (8.4-10.2) mg/dL AST (14-36) U/L Total Protein (6.3-8.2) g/dL Albumin (3.5-5.0) g/dL Triglycerides (0.00-149.00) mg/dL Crossmatch 12/28/24 12/28/24 12/28/24 Range/Units 00:56 01:56 02:52 WBC (3.8-10.6) k/uL RBC (3.80-5.40) m/uL Hgb (11.4-16.0) gm/dL Hct (34.0-46.0) % RDW (11.5-15.5) % Plt Count (150-450) k/uL Neutrophils # (1.3-7.7) k/uL Lymphocytes # (1.0-4.8) k/uL Promyelocytes # (Man) (0) k/uL ABG pCO2 (35-45) mmHg ABG pO2 (83-108) mmHg ABG O2 Saturation (94-97) % Hemoglobin (11.4-16.0) gm/dL Sodium (137-145) mmol/L Potassium (3.5-5.1) mmol/L BUN (7-17) mg/dL Glucose (74-99) mg/dL POC Glucose (mg/dL) 398 H 386 H 375 H (70-110) mg/dL Calcium (8.4-10.2) mg/dL AST (14-36) U/L Total Protein (6.3-8.2) g/dL Albumin (3.5-5.0) g/dL Triglycerides (0.00-149.00) mg/dL Crossmatch 12/28/24 12/28/24 12/28/24 Range/Units 03:31 03:58 04:20 WBC (3.8-10.6) k/uL RBC (3.80-5.40) m/uL Hgb (11.4-16.0) gm/dL Hct (34.0-46.0) % RDW (11.5-15.5) % Plt Count (150-450) k/uL Neutrophils # (1.3-7.7) k/uL Lymphocytes # (1.0-4.8) k/uL Promyelocytes # (Man) (0) k/uL ABG pCO2 33 L (35-45) mmHg ABG pO2 150 H (83-108) mmHg ABG O2 Saturation 99.6 H (94-97) % Hemoglobin 6.6 L* (11.4-16.0) gm/dL Sodium 128 L (137-145) mmol/L Potassium 2.9 L (3.5-5.1) mmol/L BUN 31 H (7-17) mg/dL Glucose 285 H (74-99) mg/dL POC Glucose (mg/dL) 350 H (70-110) mg/dL Calcium 8.1 L (8.4-10.2) mg/dL AST 13 L (14-36) U/L Total Protein 3.6 L (6.3-8.2) g/dL Albumin 1.7 L (3.5-5.0) g/dL Triglycerides (0.00-149.00) mg/dL Crossmatch 12/28/24 12/28/24 12/28/24 Range/Units 04:20 04:20 05:07 WBC 14.7 H (3.8-10.6) k/uL RBC 2.33 L (3.80-5.40) m/uL Hgb 7.2 L D (11.4-16.0) gm/dL Hct 21.1 L (34.0-46.0) % RDW 17.8 H (11.5-15.5) % Plt Count 49 L (150-450) k/uL Neutrophils # 13.9 H (1.3-7.7) k/uL Lymphocytes # 0.2 L (1.0-4.8) k/uL Promyelocytes # (Man) (0) k/uL ABG pCO2 (35-45) mmHg ABG pO2 (83-108) mmHg ABG O2 Saturation (94-97) % Hemoglobin (11.4-16.0) gm/dL Sodium (137-145) mmol/L Potassium (3.5-5.1) mmol/L BUN (7-17) mg/dL Glucose (74-99) mg/dL POC Glucose (mg/dL) 301 H (70-110) mg/dL Calcium (8.4-10.2) mg/dL AST (14-36) U/L Total Protein (6.3-8.2) g/dL Albumin (3.5-5.0) g/dL Triglycerides 823.00 H (0.00-149.00) mg/dL Crossmatch 12/28/24 12/28/24 12/28/24 Range/Units 06:18 07:09 09:02 WBC (3.8-10.6) k/uL RBC (3.80-5.40) m/uL Hgb (11.4-16.0) gm/dL Hct (34.0-46.0) % RDW (11.5-15.5) % Plt Count (150-450) k/uL Neutrophils # (1.3-7.7) k/uL Lymphocytes # (1.0-4.8) k/uL Promyelocytes # (Man) (0) k/uL ABG pCO2 (35-45) mmHg ABG pO2 (83-108) mmHg ABG O2 Saturation (94-97) % Hemoglobin (11.4-16.0) gm/dL Sodium (137-145) mmol/L Potassium (3.5-5.1) mmol/L BUN (7-17) mg/dL Glucose (74-99) mg/dL POC Glucose (mg/dL) 265 H 232 H 148 H (70-110) mg/dL Calcium (8.4-10.2) mg/dL AST (14-36) U/L Total Protein (6.3-8.2) g/dL Albumin (3.5-5.0) g/dL Triglycerides (0.00-149.00) mg/dL Crossmatch 12/28/24 12/28/24 12/28/24 Range/Units 09:03 09:51 09:56 WBC 13.2 H (3.8-10.6) k/uL RBC 2.15 L (3.80-5.40) m/uL Hgb 6.7 L* (11.4-16.0) gm/dL Hct 19.3 L* (34.0-46.0) % RDW 17.6 H (11.5-15.5) % Plt Count 47 L (150-450) k/uL Neutrophils # (1.3-7.7) k/uL Lymphocytes # (1.0-4.8) k/uL Promyelocytes # (Man) (0) k/uL ABG pCO2 (35-45) mmHg ABG pO2 (83-108) mmHg ABG O2 Saturation (94-97) % Hemoglobin (11.4-16.0) gm/dL Sodium (137-145) mmol/L Potassium (3.5-5.1) mmol/L BUN (7-17) mg/dL Glucose (74-99) mg/dL POC Glucose (mg/dL) 140 H 176 H (70-110) mg/dL Calcium (8.4-10.2) mg/dL AST (14-36) U/L Total Protein (6.3-8.2) g/dL Albumin (3.5-5.0) g/dL Triglycerides (0.00-149.00) mg/dL Crossmatch 12/28/24 12/28/24 Range/Units 12:15 12:58 WBC (3.8-10.6) k/uL RBC (3.80-5.40) m/uL Hgb (11.4-16.0) gm/dL Hct (34.0-46.0) % RDW (11.5-15.5) % Plt Count (150-450) k/uL Neutrophils # (1.3-7.7) k/uL Lymphocytes # (1.0-4.8) k/uL Promyelocytes # (Man) (0) k/uL ABG pCO2 (35-45) mmHg ABG pO2 (83-108) mmHg ABG O2 Saturation (94-97) % Hemoglobin (11.4-16.0) gm/dL Sodium (137-145) mmol/L Potassium (3.5-5.1) mmol/L BUN (7-17) mg/dL Glucose (74-99) mg/dL POC Glucose (mg/dL) 117 H 124 H (70-110) mg/dL Calcium (8.4-10.2) mg/dL AST (14-36) U/L Total Protein (6.3-8.2) g/dL Albumin (3.5-5.0) g/dL Triglycerides (0.00-149.00) mg/dL Crossmatch Microbiology - Last 24 Hours (Table) 12/27/24 09:02 Gram Stain - Preliminary Sputum 12/24/24 16:47 Blood Culture Gram Stain - Final Blood Blood Culture - Final Escherichia coli Molecular ID Assessment and Plan Assessment: Impression: Septic shock secondary to pneumoperitoneum and intra-abdominal abscesses with sigmoid diverticulitis Acute hypoxic respiratory failure secondary to abdominal sepsis and septic shock Gram-negative bacteremia secondary to E. coli secondary to above Acute sigmoid diverticulitis with pneumoperitoneum requiring exploratory laparotomy, drainage of interloop abscess and sigmoid colectomy with diverting colostomy postoperative day #2 Lower extremity DVT/left lower extremity DVT requiring a IVC filter placement History of multiple myeloma with history of pathological fractures L2 vertebral body Type 2 diabetes Coronary artery disease and previous CABG Acute kidney injury secondary to abdominal sepsis Thrombocytopenia, multifactorial but mostly now related to sepsis. 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 Every 24 hours Continue IV Protonix and GI prophylaxis Monitor platelets closely, patient cannot take any heparin products Patient is critically ill Prognosis extremely poor and guarded Critical care time is 35 minutes Time with Patient: Greater than 30
--- NOTE | 2024-12-28 13:48 | P.PN ---
Subjective Progress Note Date: 12/28/24 Principal diagnosis: abd pain, on Tx for MM In f/u pt seen in ICU, plans for weaning off vert today possibly, she has done fairly well post op. Objective - Vital Signs Vital signs: Vital Signs Temp 97.6 F 12/28/24 13:22 Pulse 70 12/28/24 13:22 Resp 19 12/28/24 13:22 BP 111/50 12/28/24 13:22 Pulse Ox 98 12/28/24 13:22 FiO2 30 12/28/24 12:55 Intake & Output 12/27/24 12/28/24 12/28/24 18:59 06:59 18:59 Intake Total 2422.531 0767.119 1624.610 Output Total 468 535 230 Balance 4788.779 7720.119 1394.610 Weight 79.5 kg Intake: IV 1430 1260 1105 Dextrose 5% in Water 1, 300 000 ml @ 100 mls/hr IV . [id number] [facility] with Sodium Bicarb (1 Meq/ml) 150 ml Rx#:[id number] Magnesium Sulfate-D5w Pmx 100 1 gm In Dextrose/Water 1 100ml.bag @ 100 mls/hr IVPB ONCE ONE Rx#: [id number] Mvi, Adult No.4 with Vit 180 360 150 K 10 ml Trace (Conc-1Ml/ Dose) 1 ml In Amino Acid 5%-D20w+Lytes*E* 1,000 ml @ 30 mls/hr IV .Q24H [facility] Rx#:[id number] Piperacillin-Tazobactam 3 100 100 .375 gm In Sodium Chloride 0.9% 100 ml @ 25 mls/hr IVPB Q8H [facility] Rx#: [id number] Potassium Chloride 20 meq 400 In Water For Injection 1 100ml.bag @ 50 mls/hr IVPB Q2H [facility] Rx#: [id number] Sodium Chloride 0.9% 1, 750 900 375 000 ml @ 75 mls/hr IV . [id number] [facility] Rx#:[id number] Intake, IV Titration 346.459 899.119 209.610 Amount Amiodarone 360 mg In 199.8 Dextrose 5% in Water 200 ml @ 1 MG/MIN 33.333 mls/ hr IV .Q6H [facility] Rx#: [id number] Amiodarone 450 mg In 83.25 Dextrose 5% in Water 250 ml @ 0.5 MG/MIN 16.667 mls/hr IV .Q15H [facility] Rx#: [id number] Dextrose 5% in Water 100 100 ml @ 618 mls/hr IV .Q10M ONE with Amiodarone 150 mg Rx#:[id number] Insulin Regular 100 unit 79.51 79.522 In Sodium Chloride 0.9% 100 ml @ Titrate IV .Q0M [facility] Rx#:[id number] Norepinephrine 8 mg In 102.281 228.951 28.418 Sodium Chloride 0.9% 250 ml @ 0.03 MCG/KG/MIN 4. 563 mls/hr IV .Q24H [facility] Rx#:[id number] Phenylephrine 40 mg In 138.031 Sodium Chloride 0.9% 250 ml @ 1 MCG/KG/MIN 24.195 mls/hr IV .[id number] [facility] Rx #:[id number] propofoL 1,000 mg In 106.147 207.608 101.670 Empty Bag 1 bag @ 15 MCG/ KG/MIN 5.715 mls/hr IV . [id number] [facility] Rx#:[id number] Blood Product 310 Rc As-1 Unit 0 [id number] Rc As-1 Unit 310 [id number] Output: Drainage 80 Abdomen 80 Urine 388 535 230 Other: Voiding Method Indwelling Catheter Indwelling Catheter Indwelling Catheter ABP, PAP, CO, CI - Last Documented Arterial Blood Pressure 154/69 - Constitutional General appearance: Present: morbidly obese, no acute distress - EENT EENT Comment(s): sedated and mechanically ventilated ENT: Absent: hard of hearing, hearing grossly normal, NA/AT, normal oropharynx, other, pharyngeal erythema, thrush, tonsillar exudates, tonsillar swelling - Neurologic Neurologic: Absent: CNII-XII intact, focal deficits - Psychiatric Psychiatric: Absent: A&O x's 3, appropriate affect, intact judgment & insight - Labs CBC & Chem 7: 12/28/24 09:03 12/28/24 04:20 Labs: Abnormal Lab Results - Last 24 Hours (Table) 12/25/24 12/25/24 12/27/24 Range/Units 05:38 11:12 16:22 WBC (3.8-10.6) k/uL RBC (3.80-5.40) m/uL Hgb (11.4-16.0) gm/dL Hct (34.0-46.0) % RDW (11.5-15.5) % Plt Count (150-450) k/uL Neutrophils # (1.3-7.7) k/uL Lymphocytes # (1.0-4.8) k/uL Promyelocytes # (Man) 0.04 H (0) k/uL ABG pCO2 (35-45) mmHg ABG pO2 (83-108) mmHg ABG O2 Saturation (94-97) % Hemoglobin (11.4-16.0) gm/dL Sodium (137-145) mmol/L Potassium (3.5-5.1) mmol/L BUN (7-17) mg/dL Glucose (74-99) mg/dL POC Glucose (mg/dL) 373 H (70-110) mg/dL Calcium (8.4-10.2) mg/dL AST (14-36) U/L Total Protein (6.3-8.2) g/dL Albumin (3.5-5.0) g/dL Triglycerides (0.00-149.00) mg/dL Crossmatch See Detail 12/27/24 12/27/24 12/27/24 Range/Units 20:11 22:01 23:42 WBC (3.8-10.6) k/uL RBC (3.80-5.40) m/uL Hgb (11.4-16.0) gm/dL Hct (34.0-46.0) % RDW (11.5-15.5) % Plt Count (150-450) k/uL Neutrophils # (1.3-7.7) k/uL Lymphocytes # (1.0-4.8) k/uL Promyelocytes # (Man) (0) k/uL ABG pCO2 (35-45) mmHg ABG pO2 (83-108) mmHg ABG O2 Saturation (94-97) % Hemoglobin (11.4-16.0) gm/dL Sodium (137-145) mmol/L Potassium (3.5-5.1) mmol/L BUN (7-17) mg/dL Glucose (74-99) mg/dL POC Glucose (mg/dL) 409 H 409 H 420 H (70-110) mg/dL Calcium (8.4-10.2) mg/dL AST (14-36) U/L Total Protein (6.3-8.2) g/dL Albumin (3.5-5.0) g/dL Triglycerides (0.00-149.00) mg/dL Crossmatch 12/28/24 12/28/24 12/28/24 Range/Units 00:56 01:56 02:52 WBC (3.8-10.6) k/uL RBC (3.80-5.40) m/uL Hgb (11.4-16.0) gm/dL Hct (34.0-46.0) % RDW (11.5-15.5) % Plt Count (150-450) k/uL Neutrophils # (1.3-7.7) k/uL Lymphocytes # (1.0-4.8) k/uL Promyelocytes # (Man) (0) k/uL ABG pCO2 (35-45) mmHg ABG pO2 (83-108) mmHg ABG O2 Saturation (94-97) % Hemoglobin (11.4-16.0) gm/dL Sodium (137-145) mmol/L Potassium (3.5-5.1) mmol/L BUN (7-17) mg/dL Glucose (74-99) mg/dL POC Glucose (mg/dL) 398 H 386 H 375 H (70-110) mg/dL Calcium (8.4-10.2) mg/dL AST (14-36) U/L Total Protein (6.3-8.2) g/dL Albumin (3.5-5.0) g/dL Triglycerides (0.00-149.00) mg/dL Crossmatch 12/28/24 12/28/24 12/28/24 Range/Units 03:31 03:58 04:20 WBC (3.8-10.6) k/uL RBC (3.80-5.40) m/uL Hgb (11.4-16.0) gm/dL Hct (34.0-46.0) % RDW (11.5-15.5) % Plt Count (150-450) k/uL Neutrophils # (1.3-7.7) k/uL Lymphocytes # (1.0-4.8) k/uL Promyelocytes # (Man) (0) k/uL ABG pCO2 33 L (35-45) mmHg ABG pO2 150 H (83-108) mmHg ABG O2 Saturation 99.6 H (94-97) % Hemoglobin 6.6 L* (11.4-16.0) gm/dL Sodium 128 L (137-145) mmol/L Potassium 2.9 L (3.5-5.1) mmol/L BUN 31 H (7-17) mg/dL Glucose 285 H (74-99) mg/dL POC Glucose (mg/dL) 350 H (70-110) mg/dL Calcium 8.1 L (8.4-10.2) mg/dL AST 13 L (14-36) U/L Total Protein 3.6 L (6.3-8.2) g/dL Albumin 1.7 L (3.5-5.0) g/dL Triglycerides (0.00-149.00) mg/dL Crossmatch 12/28/24 12/28/24 12/28/24 Range/Units 04:20 04:20 05:07 WBC 14.7 H (3.8-10.6) k/uL RBC 2.33 L (3.80-5.40) m/uL Hgb 7.2 L D (11.4-16.0) gm/dL Hct 21.1 L (34.0-46.0) % RDW 17.8 H (11.5-15.5) % Plt Count 49 L (150-450) k/uL Neutrophils # 13.9 H (1.3-7.7) k/uL Lymphocytes # 0.2 L (1.0-4.8) k/uL Promyelocytes # (Man) (0) k/uL ABG pCO2 (35-45) mmHg ABG pO2 (83-108) mmHg ABG O2 Saturation (94-97) % Hemoglobin (11.4-16.0) gm/dL Sodium (137-145) mmol/L Potassium (3.5-5.1) mmol/L BUN (7-17) mg/dL Glucose (74-99) mg/dL POC Glucose (mg/dL) 301 H (70-110) mg/dL Calcium (8.4-10.2) mg/dL AST (14-36) U/L Total Protein (6.3-8.2) g/dL Albumin (3.5-5.0) g/dL Triglycerides 823.00 H (0.00-149.00) mg/dL Crossmatch 12/28/24 12/28/24 12/28/24 Range/Units 06:18 07:09 09:02 WBC (3.8-10.6) k/uL RBC (3.80-5.40) m/uL Hgb (11.4-16.0) gm/dL Hct (34.0-46.0) % RDW (11.5-15.5) % Plt Count (150-450) k/uL Neutrophils # (1.3-7.7) k/uL Lymphocytes # (1.0-4.8) k/uL Promyelocytes # (Man) (0) k/uL ABG pCO2 (35-45) mmHg ABG pO2 (83-108) mmHg ABG O2 Saturation (94-97) % Hemoglobin (11.4-16.0) gm/dL Sodium (137-145) mmol/L Potassium (3.5-5.1) mmol/L BUN (7-17) mg/dL Glucose (74-99) mg/dL POC Glucose (mg/dL) 265 H 232 H 148 H (70-110) mg/dL Calcium (8.4-10.2) mg/dL AST (14-36) U/L Total Protein (6.3-8.2) g/dL Albumin (3.5-5.0) g/dL Triglycerides (0.00-149.00) mg/dL Crossmatch 12/28/24 12/28/24 12/28/24 Range/Units 09:03 09:51 09:56 WBC 13.2 H (3.8-10.6) k/uL RBC 2.15 L (3.80-5.40) m/uL Hgb 6.7 L* (11.4-16.0) gm/dL Hct 19.3 L* (34.0-46.0) % RDW 17.6 H (11.5-15.5) % Plt Count 47 L (150-450) k/uL Neutrophils # (1.3-7.7) k/uL Lymphocytes # (1.0-4.8) k/uL Promyelocytes # (Man) (0) k/uL ABG pCO2 (35-45) mmHg ABG pO2 (83-108) mmHg ABG O2 Saturation (94-97) % Hemoglobin (11.4-16.0) gm/dL Sodium (137-145) mmol/L Potassium (3.5-5.1) mmol/L BUN (7-17) mg/dL Glucose (74-99) mg/dL POC Glucose (mg/dL) 140 H 176 H (70-110) mg/dL Calcium (8.4-10.2) mg/dL AST (14-36) U/L Total Protein (6.3-8.2) g/dL Albumin (3.5-5.0) g/dL Triglycerides (0.00-149.00) mg/dL Crossmatch 12/28/24 12/28/24 Range/Units 12:15 12:58 WBC (3.8-10.6) k/uL RBC (3.80-5.40) m/uL Hgb (11.4-16.0) gm/dL Hct (34.0-46.0) % RDW (11.5-15.5) % Plt Count (150-450) k/uL Neutrophils # (1.3-7.7) k/uL Lymphocytes # (1.0-4.8) k/uL Promyelocytes # (Man) (0) k/uL ABG pCO2 (35-45) mmHg ABG pO2 (83-108) mmHg ABG O2 Saturation (94-97) % Hemoglobin (11.4-16.0) gm/dL Sodium (137-145) mmol/L Potassium (3.5-5.1) mmol/L BUN (7-17) mg/dL Glucose (74-99) mg/dL POC Glucose (mg/dL) 117 H 124 H (70-110) mg/dL Calcium (8.4-10.2) mg/dL AST (14-36) U/L Total Protein (6.3-8.2) g/dL Albumin (3.5-5.0) g/dL Triglycerides (0.00-149.00) mg/dL Crossmatch Microbiology - Last 24 Hours (Table) 12/27/24 09:02 Gram Stain - Preliminary Sputum 12/24/24 16:47 Blood Culture Gram Stain - Final Blood Blood Culture - Final Escherichia coli Molecular ID Assessment and Plan Plan: Abd pain, diverticulitis with perforation -CT AP showing acute diverticulitis of the transverse colon with perforation -S/P sigmoid colectomy, abscess drainage and proximal omentectomy, pending path. -Surgical and Critical Care mgmt post op Bactremia -Blood culture positive for E. coli. Patient started on IV antibiotics. -ID following LLE DVT: -Recent diagnosis of LLE DVT. Was started on Eliquis -Due to drop in hgb, and concern for possible bleed, ASA and eliquis held -Vascular Surgery has placed IVC filter -Hope to get pt back on anticoagulation once she is stable Multiple myeloma -Oncology history as dictated in consult -She is s/p cycle 2, day 8 of RVD. She will not complete C2 D15. Her treatment will be postponed until she is adequately recovered from surgery. -F/U appt with Primary Onc to assess her prior to resuming treatment-appt in DC plan Doctor attests: I performed a history and physical examination of this patient, developed impression and plan of care. Discussed with dictator. I agree with dictators note, documented as a scribe.
--- NOTE | 2024-12-28 13:50 | P.PN ---
Subjective Patient is seen for follow-up for acute kidney injury. Patient remains on the vent Maintained on normal saline Started on TPN currently running at 30 mL/h. Urine output 40 to 80 cc an hour. Receiving packed RBCs for hemoglobin of 6.7. Serum creatinine 1.0 today and serum sodium was low at 128 with potassium at 2.9. Objective - Vital Signs Vital signs: Vital Signs Temp 97.6 F 12/28/24 13:42 Pulse 68 12/28/24 13:42 Resp 19 12/28/24 13:42 BP 122/46 12/28/24 13:42 Pulse Ox 98 12/28/24 13:42 FiO2 30 12/28/24 12:55 Intake & Output 12/27/24 12/28/24 12/28/24 18:59 06:59 18:59 Intake Total 3320.563 1807.119 1629.309 Output Total 468 535 230 Balance 2343.208 4320.119 1399.309 Weight 79.5 kg Intake: IV 1430 1260 1105 Dextrose 5% in Water 1, 300 000 ml @ 100 mls/hr IV . [id number] [facility] with Sodium Bicarb (1 Meq/ml) 150 ml Rx#:[id number] Magnesium Sulfate-D5w Pmx 100 1 gm In Dextrose/Water 1 100ml.bag @ 100 mls/hr IVPB ONCE ONE Rx#: [id number] Mvi, Adult No.4 with Vit 180 360 150 K 10 ml Trace (Conc-1Ml/ Dose) 1 ml In Amino Acid 5%-D20w+Lytes*E* 1,000 ml @ 30 mls/hr IV .Q24H [facility] Rx#:[id number] Piperacillin-Tazobactam 3 100 100 .375 gm In Sodium Chloride 0.9% 100 ml @ 25 mls/hr IVPB Q8H [facility] Rx#: [id number] Potassium Chloride 20 meq 400 In Water For Injection 1 100ml.bag @ 50 mls/hr IVPB Q2H [facility] Rx#: [id number] Sodium Chloride 0.9% 1, 750 900 375 000 ml @ 75 mls/hr IV . [id number] [facility] Rx#:[id number] Intake, IV Titration 346.459 899.119 214.309 Amount Amiodarone 360 mg In 199.8 Dextrose 5% in Water 200 ml @ 1 MG/MIN 33.333 mls/ hr IV .Q6H [facility] Rx#: [id number] Amiodarone 450 mg In 83.25 Dextrose 5% in Water 250 ml @ 0.5 MG/MIN 16.667 mls/hr IV .Q15H [facility] Rx#: [id number] Dextrose 5% in Water 100 100 ml @ 618 mls/hr IV .Q10M ONE with Amiodarone 150 mg Rx#:[id number] Insulin Regular 100 unit 79.51 79.522 In Sodium Chloride 0.9% 100 ml @ Titrate IV .Q0M [facility] Rx#:[id number] Norepinephrine 8 mg In 102.281 228.951 28.418 Sodium Chloride 0.9% 250 ml @ 0.03 MCG/KG/MIN 4. 563 mls/hr IV .Q24H [facility] Rx#:[id number] Phenylephrine 40 mg In 138.031 Sodium Chloride 0.9% 250 ml @ 1 MCG/KG/MIN 24.195 mls/hr IV .[id number] [facility] Rx #:[id number] propofoL 1,000 mg In 106.147 207.608 106.369 Empty Bag 1 bag @ 15 MCG/ KG/MIN 5.715 mls/hr IV . [id number] [facility] Rx#:[id number] Blood Product 310 Rc As-1 Unit 0 [id number] Rc As-1 Unit 310 [id number] Output: Drainage 80 Abdomen 80 Urine 388 535 230 Other: Voiding Method Indwelling Catheter Indwelling Catheter Indwelling Catheter ABP, PAP, CO, CI - Last Documented Arterial Blood Pressure 154/69 - Exam Patient is sleeping but arousable Examination of the heart S1 and S2 Examination of the lungs bilateral breath sounds are heard Abdomen is soft., MILADIS drain noted colostomy noted Examination of lower extremities shows 1+ edema - Labs CBC & Chem 7: 12/28/24 09:03 12/28/24 04:20 Labs: Abnormal Lab Results - Last 24 Hours (Table) 12/25/24 12/25/24 12/27/24 Range/Units 05:38 11:12 16:22 WBC (3.8-10.6) k/uL RBC (3.80-5.40) m/uL Hgb (11.4-16.0) gm/dL Hct (34.0-46.0) % RDW (11.5-15.5) % Plt Count (150-450) k/uL Neutrophils # (1.3-7.7) k/uL Lymphocytes # (1.0-4.8) k/uL Promyelocytes # (Man) 0.04 H (0) k/uL ABG pCO2 (35-45) mmHg ABG pO2 (83-108) mmHg ABG O2 Saturation (94-97) % Hemoglobin (11.4-16.0) gm/dL Sodium (137-145) mmol/L Potassium (3.5-5.1) mmol/L BUN (7-17) mg/dL Glucose (74-99) mg/dL POC Glucose (mg/dL) 373 H (70-110) mg/dL Calcium (8.4-10.2) mg/dL AST (14-36) U/L Total Protein (6.3-8.2) g/dL Albumin (3.5-5.0) g/dL Triglycerides (0.00-149.00) mg/dL Crossmatch See Detail 12/27/24 12/27/24 12/27/24 Range/Units 20:11 22:01 23:42 WBC (3.8-10.6) k/uL RBC (3.80-5.40) m/uL Hgb (11.4-16.0) gm/dL Hct (34.0-46.0) % RDW (11.5-15.5) % Plt Count (150-450) k/uL Neutrophils # (1.3-7.7) k/uL Lymphocytes # (1.0-4.8) k/uL Promyelocytes # (Man) (0) k/uL ABG pCO2 (35-45) mmHg ABG pO2 (83-108) mmHg ABG O2 Saturation (94-97) % Hemoglobin (11.4-16.0) gm/dL Sodium (137-145) mmol/L Potassium (3.5-5.1) mmol/L BUN (7-17) mg/dL Glucose (74-99) mg/dL POC Glucose (mg/dL) 409 H 409 H 420 H (70-110) mg/dL Calcium (8.4-10.2) mg/dL AST (14-36) U/L Total Protein (6.3-8.2) g/dL Albumin (3.5-5.0) g/dL Triglycerides (0.00-149.00) mg/dL Crossmatch 12/28/24 12/28/24 12/28/24 Range/Units 00:56 01:56 02:52 WBC (3.8-10.6) k/uL RBC (3.80-5.40) m/uL Hgb (11.4-16.0) gm/dL Hct (34.0-46.0) % RDW (11.5-15.5) % Plt Count (150-450) k/uL Neutrophils # (1.3-7.7) k/uL Lymphocytes # (1.0-4.8) k/uL Promyelocytes # (Man) (0) k/uL ABG pCO2 (35-45) mmHg ABG pO2 (83-108) mmHg ABG O2 Saturation (94-97) % Hemoglobin (11.4-16.0) gm/dL Sodium (137-145) mmol/L Potassium (3.5-5.1) mmol/L BUN (7-17) mg/dL Glucose (74-99) mg/dL POC Glucose (mg/dL) 398 H 386 H 375 H (70-110) mg/dL Calcium (8.4-10.2) mg/dL AST (14-36) U/L Total Protein (6.3-8.2) g/dL Albumin (3.5-5.0) g/dL Triglycerides (0.00-149.00) mg/dL Crossmatch 12/28/24 12/28/24 12/28/24 Range/Units 03:31 03:58 04:20 WBC (3.8-10.6) k/uL RBC (3.80-5.40) m/uL Hgb (11.4-16.0) gm/dL Hct (34.0-46.0) % RDW (11.5-15.5) % Plt Count (150-450) k/uL Neutrophils # (1.3-7.7) k/uL Lymphocytes # (1.0-4.8) k/uL Promyelocytes # (Man) (0) k/uL ABG pCO2 33 L (35-45) mmHg ABG pO2 150 H (83-108) mmHg ABG O2 Saturation 99.6 H (94-97) % Hemoglobin 6.6 L* (11.4-16.0) gm/dL Sodium 128 L (137-145) mmol/L Potassium 2.9 L (3.5-5.1) mmol/L BUN 31 H (7-17) mg/dL Glucose 285 H (74-99) mg/dL POC Glucose (mg/dL) 350 H (70-110) mg/dL Calcium 8.1 L (8.4-10.2) mg/dL AST 13 L (14-36) U/L Total Protein 3.6 L (6.3-8.2) g/dL Albumin 1.7 L (3.5-5.0) g/dL Triglycerides (0.00-149.00) mg/dL Crossmatch 12/28/24 12/28/24 12/28/24 Range/Units 04:20 04:20 05:07 WBC 14.7 H (3.8-10.6) k/uL RBC 2.33 L (3.80-5.40) m/uL Hgb 7.2 L D (11.4-16.0) gm/dL Hct 21.1 L (34.0-46.0) % RDW 17.8 H (11.5-15.5) % Plt Count 49 L (150-450) k/uL Neutrophils # 13.9 H (1.3-7.7) k/uL Lymphocytes # 0.2 L (1.0-4.8) k/uL Promyelocytes # (Man) (0) k/uL ABG pCO2 (35-45) mmHg ABG pO2 (83-108) mmHg ABG O2 Saturation (94-97) % Hemoglobin (11.4-16.0) gm/dL Sodium (137-145) mmol/L Potassium (3.5-5.1) mmol/L BUN (7-17) mg/dL Glucose (74-99) mg/dL POC Glucose (mg/dL) 301 H (70-110) mg/dL Calcium (8.4-10.2) mg/dL AST (14-36) U/L Total Protein (6.3-8.2) g/dL Albumin (3.5-5.0) g/dL Triglycerides 823.00 H (0.00-149.00) mg/dL Crossmatch 12/28/24 12/28/24 12/28/24 Range/Units 06:18 07:09 09:02 WBC (3.8-10.6) k/uL RBC (3.80-5.40) m/uL Hgb (11.4-16.0) gm/dL Hct (34.0-46.0) % RDW (11.5-15.5) % Plt Count (150-450) k/uL Neutrophils # (1.3-7.7) k/uL Lymphocytes # (1.0-4.8) k/uL Promyelocytes # (Man) (0) k/uL ABG pCO2 (35-45) mmHg ABG pO2 (83-108) mmHg ABG O2 Saturation (94-97) % Hemoglobin (11.4-16.0) gm/dL Sodium (137-145) mmol/L Potassium (3.5-5.1) mmol/L BUN (7-17) mg/dL Glucose (74-99) mg/dL POC Glucose (mg/dL) 265 H 232 H 148 H (70-110) mg/dL Calcium (8.4-10.2) mg/dL AST (14-36) U/L Total Protein (6.3-8.2) g/dL Albumin (3.5-5.0) g/dL Triglycerides (0.00-149.00) mg/dL Crossmatch 12/28/24 12/28/24 12/28/24 Range/Units 09:03 09:51 09:56 WBC 13.2 H (3.8-10.6) k/uL RBC 2.15 L (3.80-5.40) m/uL Hgb 6.7 L* (11.4-16.0) gm/dL Hct 19.3 L* (34.0-46.0) % RDW 17.6 H (11.5-15.5) % Plt Count 47 L (150-450) k/uL Neutrophils # (1.3-7.7) k/uL Lymphocytes # (1.0-4.8) k/uL Promyelocytes # (Man) (0) k/uL ABG pCO2 (35-45) mmHg ABG pO2 (83-108) mmHg ABG O2 Saturation (94-97) % Hemoglobin (11.4-16.0) gm/dL Sodium (137-145) mmol/L Potassium (3.5-5.1) mmol/L BUN (7-17) mg/dL Glucose (74-99) mg/dL POC Glucose (mg/dL) 140 H 176 H (70-110) mg/dL Calcium (8.4-10.2) mg/dL AST (14-36) U/L Total Protein (6.3-8.2) g/dL Albumin (3.5-5.0) g/dL Triglycerides (0.00-149.00) mg/dL Crossmatch 12/28/24 12/28/24 Range/Units 12:15 12:58 WBC (3.8-10.6) k/uL RBC (3.80-5.40) m/uL Hgb (11.4-16.0) gm/dL Hct (34.0-46.0) % RDW (11.5-15.5) % Plt Count (150-450) k/uL Neutrophils # (1.3-7.7) k/uL Lymphocytes # (1.0-4.8) k/uL Promyelocytes # (Man) (0) k/uL ABG pCO2 (35-45) mmHg ABG pO2 (83-108) mmHg ABG O2 Saturation (94-97) % Hemoglobin (11.4-16.0) gm/dL Sodium (137-145) mmol/L Potassium (3.5-5.1) mmol/L BUN (7-17) mg/dL Glucose (74-99) mg/dL POC Glucose (mg/dL) 117 H 124 H (70-110) mg/dL Calcium (8.4-10.2) mg/dL AST (14-36) U/L Total Protein (6.3-8.2) g/dL Albumin (3.5-5.0) g/dL Triglycerides (0.00-149.00) mg/dL Crossmatch Microbiology - Last 24 Hours (Table) 12/27/24 09:02 Gram Stain - Preliminary Sputum Assessment and Plan Assessment: 1. Acute kidney injury secondary to septic ATN. Baseline creatinine near 0.8 and peaked at 1.68 this admission -1.[address] scan from December 24, 2024 showed no evidence of hydronephrosis. 2. Multiple myeloma maintained on chemotherapy. 3. Acute diverticulitis with perforation being followed by surgery. Status post sigmoid colectomy with drainage of abscess December 26, 2024. 4. Acute blood loss anemia status post blood transfusion this admission. Status post IV DDAVP. 5. Metabolic acidosis secondary to acute kidney injury and IV fluids. Status post bicarb drip. Improved. 6. Hyponatremia secondary to acute kidney injury. 7. E. coli bacteremia on antibiotics. Plan: Continue with normal saline Increase sodium in TPN Replace potassium Repeat labs in a.m.
[2024-12-28 15:07] LABS: Glucose,Whole Blood 171 mg/dL (70-110)
[2024-12-28 16:15] LABS: Glucose,Whole Blood 195 mg/dL (70-110)
[2024-12-28] MEDS: HYDROCORTISONE SUCCINATE 100 MG/2 ML VIAL IV SCH (16:48)
--- NOTE | 2024-12-28 16:57 | P.PN ---
Subjective Progress Note Date: 12/28/24 Principal diagnosis: Reason for follow-up is bacteremia perforated diverticulitis and abscess Patient is a 79-year-old female with a past medical history significant for Coronary Artery Disease (CAD), Cancer, Diabetes Mellitus, Hyperlipidemia, Hypertension, Thyroid Disorder presenting to the hospital for evaluation of abnormal CT that was done for abdominal pain with concern for perforated sigmoid diverticulitis did have a positive blood culture with E. coli probably this consultation.Patient is status post laparotomy sigmoid colectomy drainage of the interloop abscess and proximal omentectomy patient subsequent has been admitted to ICU on the vent. On today's evaluation that is 12/28/2024, patient has been afebrile, patient remains to be intubated on the vent FiO2 currently 30 no significant purulent secretion through the ET patient hemodynamically stable not requiring any pressor support no other changes reported. Patient white count is 13.2 creatinine 1.01 sputum cultures pending Objective - Vital Signs Vital signs: Vital Signs Temp 93.2 F L 12/28/24 11:07 Pulse 62 12/28/24 11:07 Resp 17 12/28/24 11:07 BP 132/81 12/28/24 11:07 Pulse Ox 100 12/28/24 11:07 FiO2 30 12/28/24 10:21 Intake & Output 12/27/24 12/28/24 12/28/24 18:59 06:59 18:59 Intake Total 4411.520 5754.119 893.244 Output Total 468 535 165 Balance 5795.460 0008.119 728.244 Weight 79.5 kg Intake: IV 1430 1260 695 Dextrose 5% in Water 1, 300 000 ml @ 100 mls/hr IV . [id number] [facility] with Sodium Bicarb (1 Meq/ml) 150 ml Rx#:[id number] Magnesium Sulfate-D5w Pmx 100 1 gm In Dextrose/Water 1 100ml.bag @ 100 mls/hr IVPB ONCE ONE Rx#: [id number] Mvi, Adult No.4 with Vit 180 360 90 K 10 ml Trace (Conc-1Ml/ Dose) 1 ml In Amino Acid 5%-D20w+Lytes*E* 1,000 ml @ 30 mls/hr IV .Q24H [facility] Rx#:[id number] Piperacillin-Tazobactam 3 100 100 .375 gm In Sodium Chloride 0.9% 100 ml @ 25 mls/hr IVPB Q8H [facility] Rx#: [id number] Potassium Chloride 20 meq 200 In Water For Injection 1 100ml.bag @ 50 mls/hr IVPB Q2H [facility] Rx#: [id number] Sodium Chloride 0.9% 1, 750 900 225 000 ml @ 75 mls/hr IV . [id number] [facility] Rx#:[id number] Intake, IV Titration 346.459 899.119 198.244 Amount Amiodarone 360 mg In 199.8 Dextrose 5% in Water 200 ml @ 1 MG/MIN 33.333 mls/ hr IV .Q6H [facility] Rx#: [id number] Amiodarone 450 mg In 83.25 Dextrose 5% in Water 250 ml @ 0.5 MG/MIN 16.667 mls/hr IV .Q15H [facility] Rx#: [id number] Dextrose 5% in Water 100 100 ml @ 618 mls/hr IV .Q10M ONE with Amiodarone 150 mg Rx#:[id number] Insulin Regular 100 unit 79.51 79.522 In Sodium Chloride 0.9% 100 ml @ Titrate IV .Q0M [facility] Rx#:[id number] Norepinephrine 8 mg In 102.281 228.951 27.784 Sodium Chloride 0.9% 250 ml @ 0.03 MCG/KG/MIN 4. 563 mls/hr IV .Q24H [facility] Rx#:[id number] Phenylephrine 40 mg In 138.031 Sodium Chloride 0.9% 250 ml @ 1 MCG/KG/MIN 24.195 mls/hr IV .[id number] [facility] Rx #:[id number] propofoL 1,000 mg In 106.147 207.608 90.938 Empty Bag 1 bag @ 15 MCG/ KG/MIN 5.715 mls/hr IV . [id number] [facility] Rx#:[id number] Blood Product 0 Rc As-1 Unit 0 [id number] Output: Drainage 80 Abdomen 80 Urine 388 535 165 Other: Voiding Method Indwelling Catheter Indwelling Catheter ABP, PAP, CO, CI - Last Documented Arterial Blood Pressure 139/47 - Exam GENERAL DESCRIPTION: An elderly female intubated on the vent RESPIRATORY SYSTEM: Unlabored breathing , decreased breath sounds at bases HEART: S1 S2 regular rate and rhythm , ABDOMEN: Soft , mild tenderness EXTREMITIES: No edema feet - Labs CBC & Chem 7: 12/28/24 09:03 12/28/24 04:20 Labs: Abnormal Lab Results - Last 24 Hours (Table) 12/25/24 12/25/24 12/27/24 Range/Units 05:38 11:12 12:02 WBC (3.8-10.6) k/uL RBC (3.80-5.40) m/uL Hgb (11.4-16.0) gm/dL Hct (34.0-46.0) % RDW (11.5-15.5) % Plt Count (150-450) k/uL Neutrophils # (1.3-7.7) k/uL Lymphocytes # (1.0-4.8) k/uL Promyelocytes # (Man) 0.04 H (0) k/uL ABG pCO2 (35-45) mmHg ABG pO2 (83-108) mmHg ABG O2 Saturation (94-97) % Hemoglobin (11.4-16.0) gm/dL Sodium (137-145) mmol/L Potassium (3.5-5.1) mmol/L BUN (7-17) mg/dL Glucose (74-99) mg/dL POC Glucose (mg/dL) 351 H (70-110) mg/dL Calcium (8.4-10.2) mg/dL AST (14-36) U/L Total Protein (6.3-8.2) g/dL Albumin (3.5-5.0) g/dL Triglycerides (0.00-149.00) mg/dL Crossmatch See Detail 12/27/24 12/27/24 12/27/24 Range/Units 16:22 20:11 22:01 WBC (3.8-10.6) k/uL RBC (3.80-5.40) m/uL Hgb (11.4-16.0) gm/dL Hct (34.0-46.0) % RDW (11.5-15.5) % Plt Count (150-450) k/uL Neutrophils # (1.3-7.7) k/uL Lymphocytes # (1.0-4.8) k/uL Promyelocytes # (Man) (0) k/uL ABG pCO2 (35-45) mmHg ABG pO2 (83-108) mmHg ABG O2 Saturation (94-97) % Hemoglobin (11.4-16.0) gm/dL Sodium (137-145) mmol/L Potassium (3.5-5.1) mmol/L BUN (7-17) mg/dL Glucose (74-99) mg/dL POC Glucose (mg/dL) 373 H 409 H 409 H (70-110) mg/dL Calcium (8.4-10.2) mg/dL AST (14-36) U/L Total Protein (6.3-8.2) g/dL Albumin (3.5-5.0) g/dL Triglycerides (0.00-149.00) mg/dL Crossmatch 12/27/24 12/28/24 12/28/24 Range/Units 23:42 00:56 01:56 WBC (3.8-10.6) k/uL RBC (3.80-5.40) m/uL Hgb (11.4-16.0) gm/dL Hct (34.0-46.0) % RDW (11.5-15.5) % Plt Count (150-450) k/uL Neutrophils # (1.3-7.7) k/uL Lymphocytes # (1.0-4.8) k/uL Promyelocytes # (Man) (0) k/uL ABG pCO2 (35-45) mmHg ABG pO2 (83-108) mmHg ABG O2 Saturation (94-97) % Hemoglobin (11.4-16.0) gm/dL Sodium (137-145) mmol/L Potassium (3.5-5.1) mmol/L BUN (7-17) mg/dL Glucose (74-99) mg/dL POC Glucose (mg/dL) 420 H 398 H 386 H (70-110) mg/dL Calcium (8.4-10.2) mg/dL AST (14-36) U/L Total Protein (6.3-8.2) g/dL Albumin (3.5-5.0) g/dL Triglycerides (0.00-149.00) mg/dL Crossmatch 12/28/24 12/28/24 12/28/24 Range/Units 02:52 03:31 03:58 WBC (3.8-10.6) k/uL RBC (3.80-5.40) m/uL Hgb (11.4-16.0) gm/dL Hct (34.0-46.0) % RDW (11.5-15.5) % Plt Count (150-450) k/uL Neutrophils # (1.3-7.7) k/uL Lymphocytes # (1.0-4.8) k/uL Promyelocytes # (Man) (0) k/uL ABG pCO2 33 L (35-45) mmHg ABG pO2 150 H (83-108) mmHg ABG O2 Saturation 99.6 H (94-97) % Hemoglobin 6.6 L* (11.4-16.0) gm/dL Sodium (137-145) mmol/L Potassium (3.5-5.1) mmol/L BUN (7-17) mg/dL Glucose (74-99) mg/dL POC Glucose (mg/dL) 375 H 350 H (70-110) mg/dL Calcium (8.4-10.2) mg/dL AST (14-36) U/L Total Protein (6.3-8.2) g/dL Albumin (3.5-5.0) g/dL Triglycerides (0.00-149.00) mg/dL Crossmatch 12/28/24 12/28/24 12/28/24 Range/Units 04:20 04:20 04:20 WBC 14.7 H (3.8-10.6) k/uL RBC 2.33 L (3.80-5.40) m/uL Hgb 7.2 L D (11.4-16.0) gm/dL Hct 21.1 L (34.0-46.0) % RDW 17.8 H (11.5-15.5) % Plt Count 49 L (150-450) k/uL Neutrophils # 13.9 H (1.3-7.7) k/uL Lymphocytes # 0.2 L (1.0-4.8) k/uL Promyelocytes # (Man) (0) k/uL ABG pCO2 (35-45) mmHg ABG pO2 (83-108) mmHg ABG O2 Saturation (94-97) % Hemoglobin (11.4-16.0) gm/dL Sodium 128 L (137-145) mmol/L Potassium 2.9 L (3.5-5.1) mmol/L BUN 31 H (7-17) mg/dL Glucose 285 H (74-99) mg/dL POC Glucose (mg/dL) (70-110) mg/dL Calcium 8.1 L (8.4-10.2) mg/dL AST 13 L (14-36) U/L Total Protein 3.6 L (6.3-8.2) g/dL Albumin 1.7 L (3.5-5.0) g/dL Triglycerides 823.00 H (0.00-149.00) mg/dL Crossmatch 12/28/24 12/28/24 12/28/24 Range/Units 05:07 06:18 07:09 WBC (3.8-10.6) k/uL RBC (3.80-5.40) m/uL Hgb (11.4-16.0) gm/dL Hct (34.0-46.0) % RDW (11.5-15.5) % Plt Count (150-450) k/uL Neutrophils # (1.3-7.7) k/uL Lymphocytes # (1.0-4.8) k/uL Promyelocytes # (Man) (0) k/uL ABG pCO2 (35-45) mmHg ABG pO2 (83-108) mmHg ABG O2 Saturation (94-97) % Hemoglobin (11.4-16.0) gm/dL Sodium (137-145) mmol/L Potassium (3.5-5.1) mmol/L BUN (7-17) mg/dL Glucose (74-99) mg/dL POC Glucose (mg/dL) 301 H 265 H 232 H (70-110) mg/dL Calcium (8.4-10.2) mg/dL AST (14-36) U/L Total Protein (6.3-8.2) g/dL Albumin (3.5-5.0) g/dL Triglycerides (0.00-149.00) mg/dL Crossmatch 12/28/24 12/28/24 12/28/24 Range/Units 09:02 09:03 09:51 WBC 13.2 H (3.8-10.6) k/uL RBC 2.15 L (3.80-5.40) m/uL Hgb 6.7 L* (11.4-16.0) gm/dL Hct 19.3 L* (34.0-46.0) % RDW 17.6 H (11.5-15.5) % Plt Count 47 L (150-450) k/uL Neutrophils # (1.3-7.7) k/uL Lymphocytes # (1.0-4.8) k/uL Promyelocytes # (Man) (0) k/uL ABG pCO2 (35-45) mmHg ABG pO2 (83-108) mmHg ABG O2 Saturation (94-97) % Hemoglobin (11.4-16.0) gm/dL Sodium (137-145) mmol/L Potassium (3.5-5.1) mmol/L BUN (7-17) mg/dL Glucose (74-99) mg/dL POC Glucose (mg/dL) 148 H 140 H (70-110) mg/dL Calcium (8.4-10.2) mg/dL AST (14-36) U/L Total Protein (6.3-8.2) g/dL Albumin (3.5-5.0) g/dL Triglycerides (0.00-149.00) mg/dL Crossmatch 12/28/24 Range/Units 09:56 WBC (3.8-10.6) k/uL RBC (3.80-5.40) m/uL Hgb (11.4-16.0) gm/dL Hct (34.0-46.0) % RDW (11.5-15.5) % Plt Count (150-450) k/uL Neutrophils # (1.3-7.7) k/uL Lymphocytes # (1.0-4.8) k/uL Promyelocytes # (Man) (0) k/uL ABG pCO2 (35-45) mmHg ABG pO2 (83-108) mmHg ABG O2 Saturation (94-97) % Hemoglobin (11.4-16.0) gm/dL Sodium (137-145) mmol/L Potassium (3.5-5.1) mmol/L BUN (7-17) mg/dL Glucose (74-99) mg/dL POC Glucose (mg/dL) 176 H (70-110) mg/dL Calcium (8.4-10.2) mg/dL AST (14-36) U/L Total Protein (6.3-8.2) g/dL Albumin (3.5-5.0) g/dL Triglycerides (0.00-149.00) mg/dL Crossmatch Microbiology - Last 24 Hours (Table) 12/27/24 09:02 Gram Stain - Preliminary Sputum 12/24/24 16:47 Blood Culture Gram Stain - Final Blood Blood Culture - Final Escherichia coli Molecular ID Assessment and Plan (1) Perforation of sigmoid colon due to diverticulitis Current Visit: Yes Status: Acute Code(s): K57.20 - DVTRCLI OF LG INT W PERFORATION AND ABSCESS W/O BLEEDING SNOMED Code(s): 8707038515860264 (2) Bacteremia Current Visit: Yes Status: Acute Code(s): R78.81 - BACTEREMIA SNOMED Code(s): 0962025 Plan: 1patient with E. coli bacteremia source likely abdominal in this patient with evidence of abnormal CT with free air concerning for perforated diverticulitis but did not mention any abscess, patient did have a repeat CT that has been suggestive of perforated diverticulitis and abscess and patient status post laparotomy sigmoid colectomy drainage of the interloop abscess procedure completed on 12/26/2024 2patient is afebrile patient white count is trending down 3patient is currently being treated with the Zosyn and monitor clinical course closely Son at the bedside question concern answered Dictation was produced using [employer] dictation software. please excuse any grammatical, word or spelling errors. Time with Patient: Less than 30
[2024-12-28 17:24] LABS: Glucose,Whole Blood 182 mg/dL (70-110)
[2024-12-28 17:31] LABS: Anisocytosis Slight; Basophils # (A) 0.1 k/uL (0-0.2); Basophils % (A) 1 %; Eosinophils # (A) 0.1 k/uL (0-0.7); Eosinophils % (A) 1 %; HCT 28.9 % (34.0-46.0); Lymphocytes # (A) 0.3 k/uL (1.0-4.8); Lymphocytes % (A) 2 %; MCH 29.2 pg (25.0-35.0); MCHC 33.3 g/dL (31.0-37.0); MCV 87.6 fL (80.0-100.0); Mean Platelet Volume 11.3; Monocytes # (A) 0.3 k/uL (0-1.0); Monocytes % (A) 2 %; Neutrophils # (A) 11.2 k/uL (1.3-7.7); Neutrophils % (A) 93 %; Poikilocytosis Slight; RDW 16.1 % (11.5-15.5)
[2024-12-28 17:47] LABS: HGB 9.6 gm/dL (11.4-16.0); Platelet Count 37 k/uL (150-450)
[2024-12-28 18:11] LABS: Glucose,Whole Blood 179 mg/dL (70-110)
[2024-12-28 19:04] LABS: Glucose,Whole Blood 186 mg/dL (70-110)
[2024-12-28 20:50] LABS: Glucose,Whole Blood 149 mg/dL (70-110)
[2024-12-28] MEDS: MVI, ADULT NO.4 WITH VIT K 10 ML, TRACE (CONC-1ML/DOSE) 1 ML, SODIUM CHLORIDE 4MEQ/ML V... IV SCH (20:55)
[2024-12-28] MEDS ORDERED: FAT EMULSION 20% 250 ML in EMPTY BAG 1 BAG IV SCH (21:00)
[2024-12-28 21:57] LABS: Glucose,Whole Blood 145 mg/dL (70-110)
[2024-12-28 23:44] LABS: Glucose,Whole Blood 125 mg/dL (70-110)
[2024-12-29 00:55] LABS: Glucose,Whole Blood 154 mg/dL (70-110)
[2024-12-29] MEDS: SODIUM CHLORIDE 0.9% 500 ML 500 ML IV ONE (02:25)
[2024-12-29 02:34] LABS: Glucose,Whole Blood 197 mg/dL (70-110)
[2024-12-29 04:11] LABS: Glucose,Whole Blood 188 mg/dL (70-110)
[2024-12-29 04:47] LABS: ABG Base Excess -3.4 mmol/L; ABG HCO3 20 mmol/L (21-25); ABG PCO2 30 mmHg (35-45); ABG PH 7.44 (7.35-7.45); ABG PO2 114 mmHg (83-108); ABG TCO2 21 mmol/L (19-24)
[2024-12-29 04:52] LABS: Anisocytosis Slight; Basophils % (A) 0 %; Eosinophils # (A) 0.1 k/uL (0-0.7); Eosinophils % (A) 1 %; HCT 26.4 % (34.0-46.0); HGB 8.7 gm/dL (11.4-16.0); Lymphocytes # (A) 0.3 k/uL (1.0-4.8); Lymphocytes % (A) 3 %; MCH 29.3 pg (25.0-35.0); MCHC 33.1 g/dL (31.0-37.0); MCV 88.5 fL (80.0-100.0); Mean Platelet Volume 11.4; Monocytes # (A) 0.3 k/uL (0-1.0); Monocytes % (A) 3 %; Neutrophils # (A) 8.4 k/uL (1.3-7.7); Neutrophils % (A) 92 %; Poikilocytosis Slight; RBC 2.98 m/uL (3.80-5.40); RDW 16.5 % (11.5-15.5); WBC 9.2 k/uL (3.8-10.6)
[2024-12-29 04:53] LABS: African American GFR (CKD) 72 (>60 ml/min/1.73 sqM); Anion Gap 6 mmol/L; Blood Urea Nitrogen 26 mg/dL (7-17); Calcium 8.2 mg/dL (8.4-10.2); Carbon Dioxide 19 mmol/L (22-30); Chloride 103 mmol/L (98-107); Glucose 160 mg/dL (74-99); Magnesium 1.9 mg/dL (1.6-2.3); Non-African American GFR(CKD) 63 (>60 ml/min/1.73 sqM); Phosphorus 3.2 mg/dL (2.5-4.5); Potassium 3.6 mmol/L (3.5-5.1); Sodium 128 mmol/L (137-145)
[2024-12-29 04:55] LABS: Allen Test Performed? no
[2024-12-29] MEDS ORDERED: Potassium Replacement Protocol 1 EACH MISC MISCELLANE PRN (05:03)
[2024-12-29 05:25] LABS: Glucose,Whole Blood 161 mg/dL (70-110)
[2024-12-29] MEDS: POTASSIUM CHLORIDE 10 MEQ in WATER FOR INJECTION 1 100ML.BAG IVPB SCH (05:30)
[2024-12-29 05:37] LABS: Platelet Count 37 k/uL (150-450)
[2024-12-29 06:16] LABS: Glucose,Whole Blood 150 mg/dL (70-110)
[2024-12-29] MEDS: MAGNESIUM SULFATE-D5W PMX 1 GM in DEXTROSE/WATER 1 100ML.BAG IVPB ONE (06:16)
[2024-12-29 06:56] LABS: Glucose,Whole Blood 141 mg/dL (70-110)
--- NOTE | 2024-12-29 07:28 | XR ---
EXAMINATION TYPE: XR chest 1V portable DATE OF EXAM: 12/29/2024 5:35 AM COMPARISON: 12/28/2024 CLINICAL INDICATION: Female, 79 years old with history of Tube placement, FINDINGS: Indwelling tubes and catheters are unchanged. Scattered pleural parenchymal opacities remain unchanged without pneumothorax. Stable appearance of the cardio-mediastinal structures at this time. No sizable pneumothorax. IMPRESSION: 1. Stable portable chest. Clinical correlation and follow up until resolution is recommended. [facility], , 12/29/2024 7:25 AM
[2024-12-29 09:00] LABS: Glucose,Whole Blood 128 mg/dL (70-110)
[2024-12-29 10:06] LABS: Glucose,Whole Blood 137 mg/dL (70-110)
--- NOTE | 2024-12-29 10:25 | P.PN ---
Subjective Progress Note Date: 12/29/24 Principal diagnosis: IVC filter Patient seen and examined today as a follow-up. She remains in the ICU intubated and sedated. Yesterday she underwent IVC filter placement right common femoral vein access. No reported bleeding from access site. Objective - Vital Signs Vital signs: Vital Signs Temp 97.7 F 12/29/24 04:00 Pulse 63 12/29/24 08:36 Resp 12 12/29/24 07:00 BP 112/46 12/29/24 07:00 Pulse Ox 100 12/29/24 07:00 FiO2 30 12/29/24 08:27 Intake & Output 12/28/24 12/29/24 12/29/24 18:59 06:59 18:59 Intake Total 2905.107 2232.030 42.57 Output Total 360 405 Balance 2545.107 1827.030 42.57 Weight 79.5 kg 86.5 kg Intake: IV 1777 1967 Mvi, Adult No.4 with Vit 315 429 K 10 ml Trace (Conc-1Ml/ Dose) 1 ml In Amino Acid 5%-D20w+Lytes*E* 1,000 ml @ 30 mls/hr IV .Q24H [facility] Rx#:[id number] Piperacillin-Tazobactam 3 200 100 .375 gm In Sodium Chloride 0.9% 100 ml @ 25 mls/hr IVPB Q8H [facility] Rx#: [id number] Potassium Chloride 20 meq 400 In Water For Injection 1 100ml.bag @ 50 mls/hr IVPB Q2H [facility] Rx#: [id number] Sodium Chloride 0.9% 1, 750 900 000 ml @ 75 mls/hr IV . [id number] [facility] Rx#:[id number] Sodium Chloride 0.9% 500 500 ml 500 ml @ 999 mls/hr IV .Q31M [facility] Rx#:[id number] pressure bag 33 39 Intake, IV Titration 507.107 264.030 42.57 Amount Amiodarone 450 mg In 236.394 Dextrose 5% in Water 250 ml @ 0.5 MG/MIN 16.667 mls/hr IV .Q15H [facility] Rx#: [id number] Insulin Regular 100 unit 85.122 55.463 42.57 In Sodium Chloride 0.9% 100 ml @ Titrate IV .Q0M [facility] Rx#:[id number] Norepinephrine 8 mg In 28.672 12.117 Sodium Chloride 0.9% 250 ml @ 0.03 MCG/KG/MIN 4. 563 mls/hr IV .Q24H [facility] Rx#:[id number] propofoL 1,000 mg In 156.919 196.450 Empty Bag 1 bag @ 15 MCG/ KG/MIN 5.715 mls/hr IV . [id number] [facility] Rx#:[id number] Blood Product 620 Rc As-1 Unit 310 [id number] Rc As-1 Unit 310 [id number] Output: Gastric Drainage 100 Drainage 0 Abdomen 0 Urine 360 305 Other: Voiding Method Indwelling Catheter Indwelling Catheter ABP, PAP, CO, CI - Last Documented Arterial Blood Pressure 143/65 - Exam General appearance: The patient is intubated and sedated. HET: Head is normocephalic and atraumatic. Neck: Supple. Lungs: Equal expansion. Abdomen: Soft, nondistended. Extremities: Normal skin color and turgor. Right groin access site without any bleeding, hematoma or ecchymosis. Neurological: Sedated and intubated. - Labs CBC & Chem 7: 12/29/24 04:11 12/29/24 04:11 Labs: Abnormal Lab Results - Last 24 Hours (Table) 12/25/24 12/25/24 12/28/24 Range/Units 05:38 11:12 04:20 WBC (3.8-10.6) k/uL RBC (3.80-5.40) m/uL Hgb (11.4-16.0) gm/dL Hct (34.0-46.0) % RDW (11.5-15.5) % Plt Count (150-450) k/uL Neutrophils # (1.3-7.7) k/uL Lymphocytes # (1.0-4.8) k/uL Promyelocytes # (Man) 0.04 H (0) k/uL ABG pCO2 (35-45) mmHg ABG pO2 (83-108) mmHg ABG HCO3 (21-25) mmol/L ABG O2 Saturation (94-97) % Hemoglobin (11.4-16.0) gm/dL Sodium (137-145) mmol/L Carbon Dioxide (22-30) mmol/L BUN (7-17) mg/dL Glucose (74-99) mg/dL POC Glucose (mg/dL) (70-110) mg/dL Calcium (8.4-10.2) mg/dL Triglycerides 823.00 H (0.00-149.00) mg/dL Crossmatch See Detail 12/28/24 12/28/24 12/28/24 Range/Units 09:03 09:51 09:56 WBC 13.2 H (3.8-10.6) k/uL RBC 2.15 L (3.80-5.40) m/uL Hgb 6.7 L* (11.4-16.0) gm/dL Hct 19.3 L* (34.0-46.0) % RDW 17.6 H (11.5-15.5) % Plt Count 47 L (150-450) k/uL Neutrophils # (1.3-7.7) k/uL Lymphocytes # (1.0-4.8) k/uL Promyelocytes # (Man) (0) k/uL ABG pCO2 (35-45) mmHg ABG pO2 (83-108) mmHg ABG HCO3 (21-25) mmol/L ABG O2 Saturation (94-97) % Hemoglobin (11.4-16.0) gm/dL Sodium (137-145) mmol/L Carbon Dioxide (22-30) mmol/L BUN (7-17) mg/dL Glucose (74-99) mg/dL POC Glucose (mg/dL) 140 H 176 H (70-110) mg/dL Calcium (8.4-10.2) mg/dL Triglycerides (0.00-149.00) mg/dL Crossmatch 12/28/24 12/28/24 12/28/24 Range/Units 12:15 12:58 15:06 WBC (3.8-10.6) k/uL RBC (3.80-5.40) m/uL Hgb (11.4-16.0) gm/dL Hct (34.0-46.0) % RDW (11.5-15.5) % Plt Count (150-450) k/uL Neutrophils # (1.3-7.7) k/uL Lymphocytes # (1.0-4.8) k/uL Promyelocytes # (Man) (0) k/uL ABG pCO2 (35-45) mmHg ABG pO2 (83-108) mmHg ABG HCO3 (21-25) mmol/L ABG O2 Saturation (94-97) % Hemoglobin (11.4-16.0) gm/dL Sodium (137-145) mmol/L Carbon Dioxide (22-30) mmol/L BUN (7-17) mg/dL Glucose (74-99) mg/dL POC Glucose (mg/dL) 117 H 124 H 171 H (70-110) mg/dL Calcium (8.4-10.2) mg/dL Triglycerides (0.00-149.00) mg/dL Crossmatch 12/28/24 12/28/24 12/28/24 Range/Units 16:13 17:23 17:23 WBC 12.0 H (3.8-10.6) k/uL RBC 3.30 L (3.80-5.40) m/uL Hgb 9.6 L D (11.4-16.0) gm/dL Hct 28.9 L (34.0-46.0) % RDW 16.1 H (11.5-15.5) % Plt Count 37 L (150-450) k/uL Neutrophils # 11.2 H (1.3-7.7) k/uL Lymphocytes # 0.3 L (1.0-4.8) k/uL Promyelocytes # (Man) (0) k/uL ABG pCO2 (35-45) mmHg ABG pO2 (83-108) mmHg ABG HCO3 (21-25) mmol/L ABG O2 Saturation (94-97) % Hemoglobin (11.4-16.0) gm/dL Sodium (137-145) mmol/L Carbon Dioxide (22-30) mmol/L BUN (7-17) mg/dL Glucose (74-99) mg/dL POC Glucose (mg/dL) 195 H 182 H (70-110) mg/dL Calcium (8.4-10.2) mg/dL Triglycerides (0.00-149.00) mg/dL Crossmatch 12/28/24 12/28/24 12/28/24 Range/Units 18:10 19:04 20:48 WBC (3.8-10.6) k/uL RBC (3.80-5.40) m/uL Hgb (11.4-16.0) gm/dL Hct (34.0-46.0) % RDW (11.5-15.5) % Plt Count (150-450) k/uL Neutrophils # (1.3-7.7) k/uL Lymphocytes # (1.0-4.8) k/uL Promyelocytes # (Man) (0) k/uL ABG pCO2 (35-45) mmHg ABG pO2 (83-108) mmHg ABG HCO3 (21-25) mmol/L ABG O2 Saturation (94-97) % Hemoglobin (11.4-16.0) gm/dL Sodium (137-145) mmol/L Carbon Dioxide (22-30) mmol/L BUN (7-17) mg/dL Glucose (74-99) mg/dL POC Glucose (mg/dL) 179 H 186 H 149 H (70-110) mg/dL Calcium (8.4-10.2) mg/dL Triglycerides (0.00-149.00) mg/dL Crossmatch 12/28/24 12/28/24 12/29/24 Range/Units 21:56 23:43 00:53 WBC (3.8-10.6) k/uL RBC (3.80-5.40) m/uL Hgb (11.4-16.0) gm/dL Hct (34.0-46.0) % RDW (11.5-15.5) % Plt Count (150-450) k/uL Neutrophils # (1.3-7.7) k/uL Lymphocytes # (1.0-4.8) k/uL Promyelocytes # (Man) (0) k/uL ABG pCO2 (35-45) mmHg ABG pO2 (83-108) mmHg ABG HCO3 (21-25) mmol/L ABG O2 Saturation (94-97) % Hemoglobin (11.4-16.0) gm/dL Sodium (137-145) mmol/L Carbon Dioxide (22-30) mmol/L BUN (7-17) mg/dL Glucose (74-99) mg/dL POC Glucose (mg/dL) 145 H 125 H 154 H (70-110) mg/dL Calcium (8.4-10.2) mg/dL Triglycerides (0.00-149.00) mg/dL Crossmatch 12/29/24 12/29/24 12/29/24 Range/Units 02:32 04:09 04:11 WBC (3.8-10.6) k/uL RBC 2.98 L (3.80-5.40) m/uL Hgb 8.7 L (11.4-16.0) gm/dL Hct 26.4 L (34.0-46.0) % RDW 16.5 H (11.5-15.5) % Plt Count 37 L (150-450) k/uL Neutrophils # 8.4 H (1.3-7.7) k/uL Lymphocytes # 0.3 L (1.0-4.8) k/uL Promyelocytes # (Man) (0) k/uL ABG pCO2 (35-45) mmHg ABG pO2 (83-108) mmHg ABG HCO3 (21-25) mmol/L ABG O2 Saturation (94-97) % Hemoglobin (11.4-16.0) gm/dL Sodium (137-145) mmol/L Carbon Dioxide (22-30) mmol/L BUN (7-17) mg/dL Glucose (74-99) mg/dL POC Glucose (mg/dL) 197 H 188 H (70-110) mg/dL Calcium (8.4-10.2) mg/dL Triglycerides (0.00-149.00) mg/dL Crossmatch 12/29/24 12/29/24 12/29/24 Range/Units 04:11 04:39 05:23 WBC (3.8-10.6) k/uL RBC (3.80-5.40) m/uL Hgb (11.4-16.0) gm/dL Hct (34.0-46.0) % RDW (11.5-15.5) % Plt Count (150-450) k/uL Neutrophils # (1.3-7.7) k/uL Lymphocytes # (1.0-4.8) k/uL Promyelocytes # (Man) (0) k/uL ABG pCO2 30 L (35-45) mmHg ABG pO2 114 H (83-108) mmHg ABG HCO3 20 L (21-25) mmol/L ABG O2 Saturation 99.0 H (94-97) % Hemoglobin 8.7 L (11.4-16.0) gm/dL Sodium 128 L (137-145) mmol/L Carbon Dioxide 19 L (22-30) mmol/L BUN 26 H (7-17) mg/dL Glucose 160 H (74-99) mg/dL POC Glucose (mg/dL) 161 H (70-110) mg/dL Calcium 8.2 L (8.4-10.2) mg/dL Triglycerides (0.00-149.00) mg/dL Crossmatch 12/29/24 12/29/24 12/29/24 Range/Units 06:14 06:54 08:59 WBC (3.8-10.6) k/uL RBC (3.80-5.40) m/uL Hgb (11.4-16.0) gm/dL Hct (34.0-46.0) % RDW (11.5-15.5) % Plt Count (150-450) k/uL Neutrophils # (1.3-7.7) k/uL Lymphocytes # (1.0-4.8) k/uL Promyelocytes # (Man) (0) k/uL ABG pCO2 (35-45) mmHg ABG pO2 (83-108) mmHg ABG HCO3 (21-25) mmol/L ABG O2 Saturation (94-97) % Hemoglobin (11.4-16.0) gm/dL Sodium (137-145) mmol/L Carbon Dioxide (22-30) mmol/L BUN (7-17) mg/dL Glucose (74-99) mg/dL POC Glucose (mg/dL) 150 H 141 H 128 H (70-110) mg/dL Calcium (8.4-10.2) mg/dL Triglycerides (0.00-149.00) mg/dL Crossmatch Microbiology - Last 24 Hours (Table) 12/27/24 09:02 Gram Stain - Preliminary Sputum Sputum Culture - Preliminary Assessment and Plan Assessment: 1. Left lower extremity acute DVT unable to be anticoagulated status post IVC filter placement 2. Perforated diverticulitis with abscess 3. Acute blood loss anemia 4. Multiple myeloma Plan: Patient is status post IVC filter placement. From a vascular standpoint no further need for anticoagulation for DVT. Thank you for this consultation, we will sign off at this time. The impression and plan of care has been dictated as directed. I performed a history and examination of this patient, discussed the same with the dictator. I agree with the dictator's note ,documented as a scribe. Any additional findings or plans will be noted.
[2024-12-29 11:01] LABS: Glucose,Whole Blood 154 mg/dL (70-110)
[2024-12-29] MEDS: ACETAMINOPHEN IV (For NPO) 1,000 MG in EMPTY BAG 1 BAG IVPB SCH (11:07)
--- NOTE | 2024-12-29 11:30 | P.PN ---
Subjective Progress Note Date: 12/29/24 SURGICAL PROGRESS NOTE CHIEF COMPLAINT: Perforated diverticulitis with abscess HISTORY OF PRESENT ILLNESS: Patient in the ICU intubated and on mechanical ventilation. Postop day #3 status post sigmoid colectomy, drainage of interloop abscess and proximal omentectomy. Patient had IVC filter placed yesterday. She is currently off of the Levophed and off of the insulin drip. She continues to have some blood draining from the incision site. Dressing had to be changed yesterday and last night. MILADIS drain with 0 output. Afebrile. WBC is down from 12-9. Hemoglobin has come up from 6.7-9.6 and then today hemoglobin 8.7 platelets 37 PHYSICAL EXAM: VITAL SIGNS: Reviewed. GENERAL: Well-developed in no acute distress. ABDOMEN: Soft. Nondistended. Midline incision with small blood clot with bl eeding noted at the umbilicus. Surgical dressing with an area of blood saturation noted. No continuous oozing noted from the incision site. Ostomy with no stool. Stoma pink NEUROLOGIC: Intubated and sedated ASSESSMENT: 1. Perforated diverticulitis with abscess 2. History of multiple myeloma PLAN: -Change incisional dressing -Continue to monitor -Continue TPN for nutrition support -Continue antibiotics -Continue ICU management -IV Tylenol scheduled added for pain management Physician Repair Service Dispatcher note has been reviewed by physician. Signing provider agrees with the documented findings, assessment, and plan of care. Objective - Vital Signs Vital signs: Vital Signs Temp 97.7 F 12/29/24 08:00 Pulse 63 12/29/24 11:00 Resp 17 12/29/24 11:00 BP 130/56 12/29/24 11:00 Pulse Ox 100 12/29/24 11:00 FiO2 30 12/29/24 08:27 Intake & Output 12/28/24 12/29/24 12/29/24 18:59 06:59 18:59 Intake Total 2905.107 2232.030 762.457 Output Total 360 405 140 Balance 2545.107 1827.030 622.457 Weight 79.5 kg 86.5 kg Intake: IV 1778 1968 644 Mvi, Adult No.4 with Vit 315 429 132 K 10 ml Trace (Conc-1Ml/ Dose) 1 ml In Amino Acid 5%-D20w+Lytes*E* 1,000 ml @ 30 mls/hr IV .Q24H [facility] Rx#:[id number] Piperacillin-Tazobactam 3 200 100 100 .375 gm In Sodium Chloride 0.9% 100 ml @ 25 mls/hr IVPB Q8H [facility] Rx#: [id number] Potassium Chloride 10 meq 100 In Water For Injection 1 100ml.bag @ 100 mls/hr IVPB Q1H [facility] Rx#: [id number] Potassium Chloride 20 meq 400 In Water For Injection 1 100ml.bag @ 50 mls/hr IVPB Q2H [facility] Rx#: [id number] Sodium Chloride 0.9% 1, 750 900 300 000 ml @ 75 mls/hr IV . [id number] [facility] Rx#:[id number] Sodium Chloride 0.9% 500 500 ml 500 ml @ 999 mls/hr IV .Q31M [facility] Rx#:[id number] pressure bag 33 39 12 Intake, IV Titration 507.107 264.030 118.457 Amount Amiodarone 450 mg In 236.394 Dextrose 5% in Water 250 ml @ 0.5 MG/MIN 16.667 mls/hr IV .Q15H [facility] Rx#: [id number] Insulin Regular 100 unit 85.122 55.463 42.57 In Sodium Chloride 0.9% 100 ml @ Titrate IV .Q0M [facility] Rx#:[id number] Norepinephrine 8 mg In 28.672 12.117 Sodium Chloride 0.9% 250 ml @ 0.03 MCG/KG/MIN 4. 563 mls/hr IV .Q24H [facility] Rx#:[id number] propofoL 1,000 mg In 156.919 196.450 75.887 Empty Bag 1 bag @ 15 MCG/ KG/MIN 5.715 mls/hr IV . [id number] [facility] Rx#:[id number] Blood Product 620 Rc As-1 Unit 310 [id number] Rc As-1 Unit 310 [id number] Output: Gastric Drainage 100 Drainage 0 0 Abdomen 0 0 Urine 360 305 140 Other: Voiding Method Indwelling Catheter Indwelling Catheter Indwelling Catheter ABP, PAP, CO, CI - Last Documented Arterial Blood Pressure 148/54 - Labs CBC & Chem 7: 12/29/24 04:11 12/29/24 04:11 Labs: Abnormal Lab Results - Last 24 Hours (Table) 12/25/24 12/28/24 12/28/24 Range/Units 11:12 12:15 12:58 WBC (3.8-10.6) k/uL RBC (3.80-5.40) m/uL Hgb (11.4-16.0) gm/dL Hct (34.0-46.0) % RDW (11.5-15.5) % Plt Count (150-450) k/uL Neutrophils # (1.3-7.7) k/uL Lymphocytes # (1.0-4.8) k/uL ABG pCO2 (35-45) mmHg ABG pO2 (83-108) mmHg ABG HCO3 (21-25) mmol/L ABG O2 Saturation (94-97) % Hemoglobin (11.4-16.0) gm/dL Sodium (137-145) mmol/L Carbon Dioxide (22-30) mmol/L BUN (7-17) mg/dL Glucose (74-99) mg/dL POC Glucose (mg/dL) 117 H 124 H (70-110) mg/dL Calcium (8.4-10.2) mg/dL Crossmatch See Detail 12/28/24 12/28/24 12/28/24 Range/Units 15:06 16:13 17:23 WBC (3.8-10.6) k/uL RBC (3.80-5.40) m/uL Hgb (11.4-16.0) gm/dL Hct (34.0-46.0) % RDW (11.5-15.5) % Plt Count (150-450) k/uL Neutrophils # (1.3-7.7) k/uL Lymphocytes # (1.0-4.8) k/uL ABG pCO2 (35-45) mmHg ABG pO2 (83-108) mmHg ABG HCO3 (21-25) mmol/L ABG O2 Saturation (94-97) % Hemoglobin (11.4-16.0) gm/dL Sodium (137-145) mmol/L Carbon Dioxide (22-30) mmol/L BUN (7-17) mg/dL Glucose (74-99) mg/dL POC Glucose (mg/dL) 171 H 195 H 182 H (70-110) mg/dL Calcium (8.4-10.2) mg/dL Crossmatch 12/28/24 12/28/24 12/28/24 Range/Units 17:23 18:10 19:04 WBC 12.0 H (3.8-10.6) k/uL RBC 3.30 L (3.80-5.40) m/uL Hgb 9.6 L D (11.4-16.0) gm/dL Hct 28.9 L (34.0-46.0) % RDW 16.1 H (11.5-15.5) % Plt Count 37 L (150-450) k/uL Neutrophils # 11.2 H (1.3-7.7) k/uL Lymphocytes # 0.3 L (1.0-4.8) k/uL ABG pCO2 (35-45) mmHg ABG pO2 (83-108) mmHg ABG HCO3 (21-25) mmol/L ABG O2 Saturation (94-97) % Hemoglobin (11.4-16.0) gm/dL Sodium (137-145) mmol/L Carbon Dioxide (22-30) mmol/L BUN (7-17) mg/dL Glucose (74-99) mg/dL POC Glucose (mg/dL) 179 H 186 H (70-110) mg/dL Calcium (8.4-10.2) mg/dL Crossmatch 12/28/24 12/28/24 12/28/24 Range/Units 20:48 21:56 23:43 WBC (3.8-10.6) k/uL RBC (3.80-5.40) m/uL Hgb (11.4-16.0) gm/dL Hct (34.0-46.0) % RDW (11.5-15.5) % Plt Count (150-450) k/uL Neutrophils # (1.3-7.7) k/uL Lymphocytes # (1.0-4.8) k/uL ABG pCO2 (35-45) mmHg ABG pO2 (83-108) mmHg ABG HCO3 (21-25) mmol/L ABG O2 Saturation (94-97) % Hemoglobin (11.4-16.0) gm/dL Sodium (137-145) mmol/L Carbon Dioxide (22-30) mmol/L BUN (7-17) mg/dL Glucose (74-99) mg/dL POC Glucose (mg/dL) 149 H 145 H 125 H (70-110) mg/dL Calcium (8.4-10.2) mg/dL Crossmatch 12/29/24 12/29/24 12/29/24 Range/Units 00:53 02:32 04:09 WBC (3.8-10.6) k/uL RBC (3.80-5.40) m/uL Hgb (11.4-16.0) gm/dL Hct (34.0-46.0) % RDW (11.5-15.5) % Plt Count (150-450) k/uL Neutrophils # (1.3-7.7) k/uL Lymphocytes # (1.0-4.8) k/uL ABG pCO2 (35-45) mmHg ABG pO2 (83-108) mmHg ABG HCO3 (21-25) mmol/L ABG O2 Saturation (94-97) % Hemoglobin (11.4-16.0) gm/dL Sodium (137-145) mmol/L Carbon Dioxide (22-30) mmol/L BUN (7-17) mg/dL Glucose (74-99) mg/dL POC Glucose (mg/dL) 154 H 197 H 188 H (70-110) mg/dL Calcium (8.4-10.2) mg/dL Crossmatch 12/29/24 12/29/24 12/29/24 Range/Units 04:11 04:11 04:39 WBC (3.8-10.6) k/uL RBC 2.98 L (3.80-5.40) m/uL Hgb 8.7 L (11.4-16.0) gm/dL Hct 26.4 L (34.0-46.0) % RDW 16.5 H (11.5-15.5) % Plt Count 37 L (150-450) k/uL Neutrophils # 8.4 H (1.3-7.7) k/uL Lymphocytes # 0.3 L (1.0-4.8) k/uL ABG pCO2 30 L (35-45) mmHg ABG pO2 114 H (83-108) mmHg ABG HCO3 20 L (21-25) mmol/L ABG O2 Saturation 99.0 H (94-97) % Hemoglobin 8.7 L (11.4-16.0) gm/dL Sodium 128 L (137-145) mmol/L Carbon Dioxide 19 L (22-30) mmol/L BUN 26 H (7-17) mg/dL Glucose 160 H (74-99) mg/dL POC Glucose (mg/dL) (70-110) mg/dL Calcium 8.2 L (8.4-10.2) mg/dL Crossmatch 12/29/24 12/29/24 12/29/24 Range/Units 05:23 06:14 06:54 WBC (3.8-10.6) k/uL RBC (3.80-5.40) m/uL Hgb (11.4-16.0) gm/dL Hct (34.0-46.0) % RDW (11.5-15.5) % Plt Count (150-450) k/uL Neutrophils # (1.3-7.7) k/uL Lymphocytes # (1.0-4.8) k/uL ABG pCO2 (35-45) mmHg ABG pO2 (83-108) mmHg ABG HCO3 (21-25) mmol/L ABG O2 Saturation (94-97) % Hemoglobin (11.4-16.0) gm/dL Sodium (137-145) mmol/L Carbon Dioxide (22-30) mmol/L BUN (7-17) mg/dL Glucose (74-99) mg/dL POC Glucose (mg/dL) 161 H 150 H 141 H (70-110) mg/dL Calcium (8.4-10.2) mg/dL Crossmatch 12/29/24 12/29/24 12/29/24 Range/Units 08:59 10:05 10:59 WBC (3.8-10.6) k/uL RBC (3.80-5.40) m/uL Hgb (11.4-16.0) gm/dL Hct (34.0-46.0) % RDW (11.5-15.5) % Plt Count (150-450) k/uL Neutrophils # (1.3-7.7) k/uL Lymphocytes # (1.0-4.8) k/uL ABG pCO2 (35-45) mmHg ABG pO2 (83-108) mmHg ABG HCO3 (21-25) mmol/L ABG O2 Saturation (94-97) % Hemoglobin (11.4-16.0) gm/dL Sodium (137-145) mmol/L Carbon Dioxide (22-30) mmol/L BUN (7-17) mg/dL Glucose (74-99) mg/dL POC Glucose (mg/dL) 128 H 137 H 154 H (70-110) mg/dL Calcium (8.4-10.2) mg/dL Crossmatch Microbiology - Last 24 Hours (Table) 12/27/24 09:02 Gram Stain - Final Sputum Sputum Culture - Final
[2024-12-29 12:05] LABS: Glucose,Whole Blood 174 mg/dL (70-110)
[2024-12-29 13:05] LABS: Glucose,Whole Blood 188 mg/dL (70-110)
--- NOTE | 2024-12-29 13:57 | P.PN ---
Subjective Progress Note Date: 12/29/24 Principal diagnosis: Acute hypoxic respiratory failure secondary to septic shock with gram-negative bacteremia and sigmoid diverticulitis with pneumoperitoneum and intra-abdominal abscess. This is a 79-year-old female patient with known history of coronary artery disease and previous bypass surgery and known history of diabetes mellitus type 2 and multiple myeloma and the patient was diagnosed having multiple myeloma back in May 2024 and the patient had significant back pain with pathologic bone marrow infiltration throughout the lumbar spine and pelvic area with a pat hologic fracture of the L2 vertebral body and osseous extension of the tumor causing left neural foraminal narrowing at the level of L1-L2 and L2-L3. The patient was started on treatment with palliative radiation therapy and following that she was started on RVD treatment and she completed cycle 2 on 12/24/2024. Subsequently, the patient gets hospitalized for an extensive left lower extremity DVT involving a clot extending from the left iliac to the popliteal vein and the patient was started on anticoagulation with Eliquis. She was discharged to be readmitted for abdominal pain and this was assumed to be related to constipation. She was discharged to be readmitted for ongoing abdominal pain and the patient was diagnosed having acute diverticulitis. Yesterday, the patient was taken to the operating room as the follow-up CAT scan of the abdomen showed a complicated diverticulitis of the sigmoid colon with perforation and pneumoperitoneum. There was 8 cm gas/fluid collection consiste nt with an abscess. She also had cholelithiasis and diffuse anasarca. In the operating room, the patient was found to have an abdominal abscess that was drained. The patient had sigmoid colectomy and diverting colostomy. Postop, the patient was kept intubated and placed on the mechanical ventilator and she was transferred to the ICU. Noted her anticoagulation is currently on hold and she is not showing any signs of bleeding. He is currently off anticoagulants. Vascular surgery has seen the patient and patient is being contemplated for IVC filter placement. Platelet counts are also low. This morning, she is on propofol at rate of 30, she is on assist-control mode at rate of 16, tidal volume of 350, FiO2 40% with a PEEP of 5. Blood gas showed a pH of 7.48 with a pCO2 of 30 and pO2 175. NG tube output is minimal and fluid balance is +2.7 L of the patient received several fluid boluses yesterday. She remains on Alvin- Synephrine at 1.3 mcg. Producing urine output. White cell count is 14.7, hemoglobin is 8.7 and platelet count is at 73. The non-anion gap metabolic acidosis is improved and the patient serum bicarb is up to 22. Sodium levels at 127. Potassium is at 4.2. LFTs are normal. Blood sugar is at 363. Chest x- ray showed atelectatic changes lung base bilaterally. Orotracheal tube is in good location. Postthoracotomy changes related to previous heart surgery and some pulm vascular congestion is also present. The patient is currently on IV Zosyn. She will be started on TPN for nutritional support within the next 24 to 48 hours. Blood cultures positive for E. coli. Patient was seen today on 12/28/2024, patient remains in the ICU, she is on mechanical ventilation, and the patient just came back from IVC filter placement by vascular surgery. Patient is on assist-control rate of 16 tidal volume 350 FiO2 35% and PEEP of 5 ABG showed a pO2 of 150 pCO2 33 pH of 7.45 hence patient was transitioned to assist-control rate of 12 tidal volume 400 FiO2 30% and PEEP of 5 patient is also receiving a unit of packed RBCs for hemoglobin of 6.7. Requiring multiple drips including norepinephrine at 0.02 mcg/kg/min she is on TPN at 30 cc/h propofol 40 mg/kg/min and amiodarone 0.5 mg/min. Patient is also receiving insulin at 11.1 units/h. Her Solu-Cortef dose was cut down and the patient remains empirically on Zosyn. Today is postoperative day #2, patient is status post colectomy with ostomy and MILADIS drain placement. Again her presentation was mostly a presentation of abdominal sepsis. Chest x-ray today showed mostly bibasilar atelectasis., No evidence of pulmonary edema., And I doubt pneumonia. WBC count today 13.2 hemoglobin 6.7 platelets are 47,000's. Sodium is 128 potassium 2.9 chloride 98 BUN 31 creatinine 1.01 patient has received a total of 3 units of packed RBCs since admission. Blood cultures are positive for E. coli. Sensitive to Zosyn Seen today on 12/29/2024, remains in the ICU, intubated and mechanically ventilated, on assist-control mode of mechanical ventilation, rate 12 tidal volume 400 FiO2 30% PEEP of 5 ABG showed a pO2 of 114 pCO2 3 0 pH of 7.44 patient is requiring propofol at 45 mcg/kg/min she is not requiring any pressors today, patient is on TPN at 33 cc/h and IV fluid 0.9 normal saline at 75 cc/h. Her surgical site seems to be intact, ostomy seems to be pink, minimal bloody drainage into the ostomy bag. Patient is sedated, however I plan to discontinue propofol today and give the patient a weaning trial on Precedex. Her WBC count is 9.2 hemoglobin 8.7. Basic metabolic profile is relatively normal except for sodium of 128 renal profile is normal, chest x-ray showed mostly bibasilar atelectasis, no clear-cut evidence of infiltrate. Objective - Vital Signs Vital signs: Vital Signs Temp 97.6 F 12/29/24 12:00 Pulse 83 12/29/24 13:30 Resp 14 12/29/24 13:30 BP 133/66 12/29/24 13:30 Pulse Ox 99 12/29/24 13:30 FiO2 30 12/29/24 12:47 Intake & Output 12/28/24 12/29/24 12/29/24 18:59 06:59 18:59 Intake Total 2905.107 2232.030 977.045 Output Total 360 405 165 Balance 2545.107 1827.030 812.045 Weight 79.5 kg 86.5 kg Intake: IV 1778 1968 855 ACETAMINOPHEN IV (For NPO 100 ) 1,000 mg In Empty Bag 1 bag @ 400 mls/hr IVPB Q6HR [facility] Rx#:[id number] Mvi, Adult No.4 with Vit 315 429 165 K 10 ml Trace (Conc-1Ml/ Dose) 1 ml In Amino Acid 5%-D20w+Lytes*E* 1,000 ml @ 30 mls/hr IV .Q24H [facility] Rx#:[id number] Piperacillin-Tazobactam 3 200 100 100 .375 gm In Sodium Chloride 0.9% 100 ml @ 25 mls/hr IVPB Q8H [facility] Rx#: [id number] Potassium Chloride 10 meq 100 In Water For Injection 1 100ml.bag @ 100 mls/hr IVPB Q1H [facility] Rx#: [id number] Potassium Chloride 20 meq 400 In Water For Injection 1 100ml.bag @ 50 mls/hr IVPB Q2H [facility] Rx#: [id number] Sodium Chloride 0.9% 1, 750 900 375 000 ml @ 75 mls/hr IV . [id number] [facility] Rx#:[id number] Sodium Chloride 0.9% 500 500 ml 500 ml @ 999 mls/hr IV .Q31M [facility] Rx#:[id number] pressure bag 33 39 15 Intake, IV Titration 507.107 264.030 122.045 Amount Amiodarone 450 mg In 236.394 Dextrose 5% in Water 250 ml @ 0.5 MG/MIN 16.667 mls/hr IV .Q15H [facility] Rx#: [id number] Insulin Regular 100 unit 85.122 55.463 42.57 In Sodium Chloride 0.9% 100 ml @ Titrate IV .Q0M [facility] Rx#:[id number] Norepinephrine 8 mg In 28.672 12.117 Sodium Chloride 0.9% 250 ml @ 0.03 MCG/KG/MIN 4. 563 mls/hr IV .Q24H [facility] Rx#:[id number] propofoL 1,000 mg In 156.919 196.450 79.475 Empty Bag 1 bag @ 15 MCG/ KG/MIN 5.715 mls/hr IV . [id number] [facility] Rx#:[id number] Blood Product 620 Rc As-1 Unit 310 [id number] Rc As-1 Unit 310 [id number] Output: Gastric Drainage 100 Drainage 0 0 Abdomen 0 0 Urine 360 305 165 Other: Voiding Method Indwelling Catheter Indwelling Catheter Indwelling Catheter ABP, PAP, CO, CI - Last Documented Arterial Blood Pressure 159/59 - Exam General: Revealed a 79-year-old female intubated mechanically ventilated, sedated, in no distress Head: Atraumatic normocephalic EENT: PERRLA, EOMI, nonicteric, no neck masses, endotracheal tube and orogastric tube are intact. Neck is supple, no neck masses, no JVD, no stridor, no thyromegaly Lungs diminished breath sounds at the bases no rhonchi no wheezes Cardiac: Distant S1-S2, no S3 gallop, no murmur Abdominal: Postsurgical changes and the patient has a colostomy. Surgical wound site is dry clean and intact. The colostomy is pink Extremities: No clubbing edema or cyanosis. Skin: No rashes Neurologically, cannot assess, patient is sedated and mechanically ventilated on propofol Psychiatric: Could not assess. - Labs CBC & Chem 7: 12/29/24 04:11 12/29/24 04:11 Labs: Abnormal Lab Results - Last 24 Hours (Table) 12/25/24 12/28/24 12/28/24 Range/Units 11:12 15:06 16:13 WBC (3.8-10.6) k/uL RBC (3.80-5.40) m/uL Hgb (11.4-16.0) gm/dL Hct (34.0-46.0) % RDW (11.5-15.5) % Plt Count (150-450) k/uL Neutrophils # (1.3-7.7) k/uL Lymphocytes # (1.0-4.8) k/uL ABG pCO2 (35-45) mmHg ABG pO2 (83-108) mmHg ABG HCO3 (21-25) mmol/L ABG O2 Saturation (94-97) % Hemoglobin (11.4-16.0) gm/dL Sodium (137-145) mmol/L Carbon Dioxide (22-30) mmol/L BUN (7-17) mg/dL Glucose (74-99) mg/dL POC Glucose (mg/dL) 171 H 195 H (70-110) mg/dL Calcium (8.4-10.2) mg/dL Crossmatch See Detail 12/28/24 12/28/24 12/28/24 Range/Units 17:23 17:23 18:10 WBC 12.0 H (3.8-10.6) k/uL RBC 3.30 L (3.80-5.40) m/uL Hgb 9.6 L D (11.4-16.0) gm/dL Hct 28.9 L (34.0-46.0) % RDW 16.1 H (11.5-15.5) % Plt Count 37 L (150-450) k/uL Neutrophils # 11.2 H (1.3-7.7) k/uL Lymphocytes # 0.3 L (1.0-4.8) k/uL ABG pCO2 (35-45) mmHg ABG pO2 (83-108) mmHg ABG HCO3 (21-25) mmol/L ABG O2 Saturation (94-97) % Hemoglobin (11.4-16.0) gm/dL Sodium (137-145) mmol/L Carbon Dioxide (22-30) mmol/L BUN (7-17) mg/dL Glucose (74-99) mg/dL POC Glucose (mg/dL) 182 H 179 H (70-110) mg/dL Calcium (8.4-10.2) mg/dL Crossmatch 12/28/24 12/28/24 12/28/24 Range/Units 19:04 20:48 21:56 WBC (3.8-10.6) k/uL RBC (3.80-5.40) m/uL Hgb (11.4-16.0) gm/dL Hct (34.0-46.0) % RDW (11.5-15.5) % Plt Count (150-450) k/uL Neutrophils # (1.3-7.7) k/uL Lymphocytes # (1.0-4.8) k/uL ABG pCO2 (35-45) mmHg ABG pO2 (83-108) mmHg ABG HCO3 (21-25) mmol/L ABG O2 Saturation (94-97) % Hemoglobin (11.4-16.0) gm/dL Sodium (137-145) mmol/L Carbon Dioxide (22-30) mmol/L BUN (7-17) mg/dL Glucose (74-99) mg/dL POC Glucose (mg/dL) 186 H 149 H 145 H (70-110) mg/dL Calcium (8.4-10.2) mg/dL Crossmatch 12/28/24 12/29/24 12/29/24 Range/Units 23:43 00:53 02:32 WBC (3.8-10.6) k/uL RBC (3.80-5.40) m/uL Hgb (11.4-16.0) gm/dL Hct (34.0-46.0) % RDW (11.5-15.5) % Plt Count (150-450) k/uL Neutrophils # (1.3-7.7) k/uL Lymphocytes # (1.0-4.8) k/uL ABG pCO2 (35-45) mmHg ABG pO2 (83-108) mmHg ABG HCO3 (21-25) mmol/L ABG O2 Saturation (94-97) % Hemoglobin (11.4-16.0) gm/dL Sodium (137-145) mmol/L Carbon Dioxide (22-30) mmol/L BUN (7-17) mg/dL Glucose (74-99) mg/dL POC Glucose (mg/dL) 125 H 154 H 197 H (70-110) mg/dL Calcium (8.4-10.2) mg/dL Crossmatch 12/29/24 12/29/24 12/29/24 Range/Units 04:09 04:11 04:11 WBC (3.8-10.6) k/uL RBC 2.98 L (3.80-5.40) m/uL Hgb 8.7 L (11.4-16.0) gm/dL Hct 26.4 L (34.0-46.0) % RDW 16.5 H (11.5-15.5) % Plt Count 37 L (150-450) k/uL Neutrophils # 8.4 H (1.3-7.7) k/uL Lymphocytes # 0.3 L (1.0-4.8) k/uL ABG pCO2 (35-45) mmHg ABG pO2 (83-108) mmHg ABG HCO3 (21-25) mmol/L ABG O2 Saturation (94-97) % Hemoglobin (11.4-16.0) gm/dL Sodium 128 L (137-145) mmol/L Carbon Dioxide 19 L (22-30) mmol/L BUN 26 H (7-17) mg/dL Glucose 160 H (74-99) mg/dL POC Glucose (mg/dL) 188 H (70-110) mg/dL Calcium 8.2 L (8.4-10.2) mg/dL Crossmatch 12/29/24 12/29/24 12/29/24 Range/Units 04:39 05:23 06:14 WBC (3.8-10.6) k/uL RBC (3.80-5.40) m/uL Hgb (11.4-16.0) gm/dL Hct (34.0-46.0) % RDW (11.5-15.5) % Plt Count (150-450) k/uL Neutrophils # (1.3-7.7) k/uL Lymphocytes # (1.0-4.8) k/uL ABG pCO2 30 L (35-45) mmHg ABG pO2 114 H (83-108) mmHg ABG HCO3 20 L (21-25) mmol/L ABG O2 Saturation 99.0 H (94-97) % Hemoglobin 8.7 L (11.4-16.0) gm/dL Sodium (137-145) mmol/L Carbon Dioxide (22-30) mmol/L BUN (7-17) mg/dL Glucose (74-99) mg/dL POC Glucose (mg/dL) 161 H 150 H (70-110) mg/dL Calcium (8.4-10.2) mg/dL Crossmatch 12/29/24 12/29/24 12/29/24 Range/Units 06:54 08:59 10:05 WBC (3.8-10.6) k/uL RBC (3.80-5.40) m/uL Hgb (11.4-16.0) gm/dL Hct (34.0-46.0) % RDW (11.5-15.5) % Plt Count (150-450) k/uL Neutrophils # (1.3-7.7) k/uL Lymphocytes # (1.0-4.8) k/uL ABG pCO2 (35-45) mmHg ABG pO2 (83-108) mmHg ABG HCO3 (21-25) mmol/L ABG O2 Saturation (94-97) % Hemoglobin (11.4-16.0) gm/dL Sodium (137-145) mmol/L Carbon Dioxide (22-30) mmol/L BUN (7-17) mg/dL Glucose (74-99) mg/dL POC Glucose (mg/dL) 141 H 128 H 137 H (70-110) mg/dL Calcium (8.4-10.2) mg/dL Crossmatch 12/29/24 12/29/24 12/29/24 Range/Units 10:59 12:04 13:04 WBC (3.8-10.6) k/uL RBC (3.80-5.40) m/uL Hgb (11.4-16.0) gm/dL Hct (34.0-46.0) % RDW (11.5-15.5) % Plt Count (150-450) k/uL Neutrophils # (1.3-7.7) k/uL Lymphocytes # (1.0-4.8) k/uL ABG pCO2 (35-45) mmHg ABG pO2 (83-108) mmHg ABG HCO3 (21-25) mmol/L ABG O2 Saturation (94-97) % Hemoglobin (11.4-16.0) gm/dL Sodium (137-145) mmol/L Carbon Dioxide (22-30) mmol/L BUN (7-17) mg/dL Glucose (74-99) mg/dL POC Glucose (mg/dL) 154 H 174 H 188 H (70-110) mg/dL Calcium (8.4-10.2) mg/dL Crossmatch Microbiology - Last 24 Hours (Table) 12/27/24 09:02 Gram Stain - Final Sputum Sputum Culture - Final Assessment and Plan Assessment: Impression: Septic shock secondary to pneumoperitoneum and intra-abdominal abscesses with sigmoid diverticulitis Acute hypoxic respiratory failure secondary to abdominal sepsis and septic shock Gram-negative bacteremia secondary to E. coli secondary to above Acute sigmoid diverticulitis with pneumoperitoneum requiring exploratory laparotomy, drainage of interloop abscess and sigmoid colectomy with diverting colostomy postoperative day #3 Lower extremity DVT/left lower extremity DVT requiring a IVC filter placement History of multiple myeloma with history of pathological fractures L2 vertebral body Type 2 diabetes Coronary artery disease and previous CABG Acute kidney injury secondary to abdominal sepsis Thrombocytopenia, multifactorial but mostly now related to sepsis. 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 Nutritional support/TPN Antibiotics/Zosyn Continue to monitor blood cultures Patient is not requiring norepinephrine today, her blood pressure seems to be re latively stable Decrease hydrocortisone to 50 mg IV push every 12 hours Continue insulin coverage Continue Synthroid IV push. Every 24 hours Continue IV Protonix and GI prophylaxis Monitor platelets closely, patient cannot take any heparin products Patient remains extremely critically ill. Prognosis extremely poor and guarded Critical care time is 33 minutes Time with Patient: Greater than 30
[2024-12-29 14:10] LABS: Glucose,Whole Blood 208 mg/dL (70-110)
--- NOTE | 2024-12-29 14:17 | P.PN ---
Subjective Progress Note Date: 12/29/24 Principal diagnosis: abd pain, on Tx for MM In f/u pt seen in ICU, she unfortunately remains on ventilator today. Objective - Vital Signs Vital signs: Vital Signs Temp 97.6 F 12/29/24 12:00 Pulse 83 12/29/24 13:30 Resp 14 12/29/24 13:30 BP 133/66 12/29/24 13:30 Pulse Ox 99 12/29/24 13:30 FiO2 30 12/29/24 12:47 Intake & Output 12/28/24 12/29/24 12/29/24 18:59 06:59 18:59 Intake Total 2905.107 2232.030 977.045 Output Total 360 405 165 Balance 2545.107 1827.030 812.045 Weight 79.5 kg 86.5 kg Intake: IV 1778 1968 855 ACETAMINOPHEN IV (For NPO 100 ) 1,000 mg In Empty Bag 1 bag @ 400 mls/hr IVPB Q6HR [facility] Rx#:[id number] Mvi, Adult No.4 with Vit 315 429 165 K 10 ml Trace (Conc-1Ml/ Dose) 1 ml In Amino Acid 5%-D20w+Lytes*E* 1,000 ml @ 30 mls/hr IV .Q24H [facility] Rx#:[id number] Piperacillin-Tazobactam 3 200 100 100 .375 gm In Sodium Chloride 0.9% 100 ml @ 25 mls/hr IVPB Q8H [facility] Rx#: [id number] Potassium Chloride 10 meq 100 In Water For Injection 1 100ml.bag @ 100 mls/hr IVPB Q1H [facility] Rx#: [id number] Potassium Chloride 20 meq 400 In Water For Injection 1 100ml.bag @ 50 mls/hr IVPB Q2H [facility] Rx#: [id number] Sodium Chloride 0.9% 1, 750 900 375 000 ml @ 75 mls/hr IV . [id number] [facility] Rx#:[id number] Sodium Chloride 0.9% 500 500 ml 500 ml @ 999 mls/hr IV .Q31M [facility] Rx#:[id number] pressure bag 33 39 15 Intake, IV Titration 507.107 264.030 122.045 Amount Amiodarone 450 mg In 236.394 Dextrose 5% in Water 250 ml @ 0.5 MG/MIN 16.667 mls/hr IV .Q15H [facility] Rx#: [id number] Insulin Regular 100 unit 85.122 55.463 42.57 In Sodium Chloride 0.9% 100 ml @ Titrate IV .Q0M [facility] Rx#:[id number] Norepinephrine 8 mg In 28.672 12.117 Sodium Chloride 0.9% 250 ml @ 0.03 MCG/KG/MIN 4. 563 mls/hr IV .Q24H [facility] Rx#:[id number] propofoL 1,000 mg In 156.919 196.450 79.475 Empty Bag 1 bag @ 15 MCG/ KG/MIN 5.715 mls/hr IV . [id number] [facility] Rx#:[id number] Blood Product 620 Rc As-1 Unit 310 [id number] Rc As-1 Unit 310 [id number] Output: Gastric Drainage 100 Drainage 0 0 Abdomen 0 0 Urine 360 305 165 Other: Voiding Method Indwelling Catheter Indwelling Catheter Indwelling Catheter ABP, PAP, CO, CI - Last Documented Arterial Blood Pressure 159/59 - Constitutional General appearance: Present: no acute distress, obese - Respiratory Details: mechanical ventilation - Psychiatric Psychiatric: Absent: A&O x's 3, appropriate affect, intact judgment & insight - Labs CBC & Chem 7: 12/29/24 04:11 12/29/24 04:11 Labs: Abnormal Lab Results - Last 24 Hours (Table) 12/25/24 12/28/24 12/28/24 Range/Units 11:12 15:06 16:13 WBC (3.8-10.6) k/uL RBC (3.80-5.40) m/uL Hgb (11.4-16.0) gm/dL Hct (34.0-46.0) % RDW (11.5-15.5) % Plt Count (150-450) k/uL Neutrophils # (1.3-7.7) k/uL Lymphocytes # (1.0-4.8) k/uL ABG pCO2 (35-45) mmHg ABG pO2 (83-108) mmHg ABG HCO3 (21-25) mmol/L ABG O2 Saturation (94-97) % Hemoglobin (11.4-16.0) gm/dL Sodium (137-145) mmol/L Carbon Dioxide (22-30) mmol/L BUN (7-17) mg/dL Glucose (74-99) mg/dL POC Glucose (mg/dL) 171 H 195 H (70-110) mg/dL Calcium (8.4-10.2) mg/dL Crossmatch See Detail 12/28/24 12/28/24 12/28/24 Range/Units 17:23 17:23 18:10 WBC 12.0 H (3.8-10.6) k/uL RBC 3.30 L (3.80-5.40) m/uL Hgb 9.6 L D (11.4-16.0) gm/dL Hct 28.9 L (34.0-46.0) % RDW 16.1 H (11.5-15.5) % Plt Count 37 L (150-450) k/uL Neutrophils # 11.2 H (1.3-7.7) k/uL Lymphocytes # 0.3 L (1.0-4.8) k/uL ABG pCO2 (35-45) mmHg ABG pO2 (83-108) mmHg ABG HCO3 (21-25) mmol/L ABG O2 Saturation (94-97) % Hemoglobin (11.4-16.0) gm/dL Sodium (137-145) mmol/L Carbon Dioxide (22-30) mmol/L BUN (7-17) mg/dL Glucose (74-99) mg/dL POC Glucose (mg/dL) 182 H 179 H (70-110) mg/dL Calcium (8.4-10.2) mg/dL Crossmatch 12/28/24 12/28/24 12/28/24 Range/Units 19:04 20:48 21:56 WBC (3.8-10.6) k/uL RBC (3.80-5.40) m/uL Hgb (11.4-16.0) gm/dL Hct (34.0-46.0) % RDW (11.5-15.5) % Plt Count (150-450) k/uL Neutrophils # (1.3-7.7) k/uL Lymphocytes # (1.0-4.8) k/uL ABG pCO2 (35-45) mmHg ABG pO2 (83-108) mmHg ABG HCO3 (21-25) mmol/L ABG O2 Saturation (94-97) % Hemoglobin (11.4-16.0) gm/dL Sodium (137-145) mmol/L Carbon Dioxide (22-30) mmol/L BUN (7-17) mg/dL Glucose (74-99) mg/dL POC Glucose (mg/dL) 186 H 149 H 145 H (70-110) mg/dL Calcium (8.4-10.2) mg/dL Crossmatch 12/28/24 12/29/24 12/29/24 Range/Units 23:43 00:53 02:32 WBC (3.8-10.6) k/uL RBC (3.80-5.40) m/uL Hgb (11.4-16.0) gm/dL Hct (34.0-46.0) % RDW (11.5-15.5) % Plt Count (150-450) k/uL Neutrophils # (1.3-7.7) k/uL Lymphocytes # (1.0-4.8) k/uL ABG pCO2 (35-45) mmHg ABG pO2 (83-108) mmHg ABG HCO3 (21-25) mmol/L ABG O2 Saturation (94-97) % Hemoglobin (11.4-16.0) gm/dL Sodium (137-145) mmol/L Carbon Dioxide (22-30) mmol/L BUN (7-17) mg/dL Glucose (74-99) mg/dL POC Glucose (mg/dL) 125 H 154 H 197 H (70-110) mg/dL Calcium (8.4-10.2) mg/dL Crossmatch 12/29/24 12/29/24 12/29/24 Range/Units 04:09 04:11 04:11 WBC (3.8-10.6) k/uL RBC 2.98 L (3.80-5.40) m/uL Hgb 8.7 L (11.4-16.0) gm/dL Hct 26.4 L (34.0-46.0) % RDW 16.5 H (11.5-15.5) % Plt Count 37 L (150-450) k/uL Neutrophils # 8.4 H (1.3-7.7) k/uL Lymphocytes # 0.3 L (1.0-4.8) k/uL ABG pCO2 (35-45) mmHg ABG pO2 (83-108) mmHg ABG HCO3 (21-25) mmol/L ABG O2 Saturation (94-97) % Hemoglobin (11.4-16.0) gm/dL Sodium 128 L (137-145) mmol/L Carbon Dioxide 19 L (22-30) mmol/L BUN 26 H (7-17) mg/dL Glucose 160 H (74-99) mg/dL POC Glucose (mg/dL) 188 H (70-110) mg/dL Calcium 8.2 L (8.4-10.2) mg/dL Crossmatch 12/29/24 12/29/24 12/29/24 Range/Units 04:39 05:23 06:14 WBC (3.8-10.6) k/uL RBC (3.80-5.40) m/uL Hgb (11.4-16.0) gm/dL Hct (34.0-46.0) % RDW (11.5-15.5) % Plt Count (150-450) k/uL Neutrophils # (1.3-7.7) k/uL Lymphocytes # (1.0-4.8) k/uL ABG pCO2 30 L (35-45) mmHg ABG pO2 114 H (83-108) mmHg ABG HCO3 20 L (21-25) mmol/L ABG O2 Saturation 99.0 H (94-97) % Hemoglobin 8.7 L (11.4-16.0) gm/dL Sodium (137-145) mmol/L Carbon Dioxide (22-30) mmol/L BUN (7-17) mg/dL Glucose (74-99) mg/dL POC Glucose (mg/dL) 161 H 150 H (70-110) mg/dL Calcium (8.4-10.2) mg/dL Crossmatch 12/29/24 12/29/24 12/29/24 Range/Units 06:54 08:59 10:05 WBC (3.8-10.6) k/uL RBC (3.80-5.40) m/uL Hgb (11.4-16.0) gm/dL Hct (34.0-46.0) % RDW (11.5-15.5) % Plt Count (150-450) k/uL Neutrophils # (1.3-7.7) k/uL Lymphocytes # (1.0-4.8) k/uL ABG pCO2 (35-45) mmHg ABG pO2 (83-108) mmHg ABG HCO3 (21-25) mmol/L ABG O2 Saturation (94-97) % Hemoglobin (11.4-16.0) gm/dL Sodium (137-145) mmol/L Carbon Dioxide (22-30) mmol/L BUN (7-17) mg/dL Glucose (74-99) mg/dL POC Glucose (mg/dL) 141 H 128 H 137 H (70-110) mg/dL Calcium (8.4-10.2) mg/dL Crossmatch 12/29/24 12/29/24 12/29/24 Range/Units 10:59 12:04 13:04 WBC (3.8-10.6) k/uL RBC (3.80-5.40) m/uL Hgb (11.4-16.0) gm/dL Hct (34.0-46.0) % RDW (11.5-15.5) % Plt Count (150-450) k/uL Neutrophils # (1.3-7.7) k/uL Lymphocytes # (1.0-4.8) k/uL ABG pCO2 (35-45) mmHg ABG pO2 (83-108) mmHg ABG HCO3 (21-25) mmol/L ABG O2 Saturation (94-97) % Hemoglobin (11.4-16.0) gm/dL Sodium (137-145) mmol/L Carbon Dioxide (22-30) mmol/L BUN (7-17) mg/dL Glucose (74-99) mg/dL POC Glucose (mg/dL) 154 H 174 H 188 H (70-110) mg/dL Calcium (8.4-10.2) mg/dL Crossmatch Microbiology - Last 24 Hours (Table) 12/27/24 09:02 Gram Stain - Final Sputum Sputum Culture - Final Assessment and Plan (1) Perforated diverticulum Current Visit: Yes Status: Acute Priority: High Code(s): K57.80 - DVTRCLI OF INTEST, PART UNSP, W PERF AND ABSCESS W/O BLEED SNOMED Code(s): 00002734 (2) Multiple myeloma Current Visit: No Status: Chronic Priority: Medium Code(s): C90.00 - MULTIPLE MYELOMA NOT HAVING ACHIEVED REMISSION SNOMED Code(s): 758117007 Plan: Abd pain, diverticulitis with perforation -CT AP showing acute diverticulitis of the transverse colon with perforation -S/P sigmoid colectomy, abscess drainage and proximal omentectomy, pending path. -Surgical and Critical Care mgmt post op Bactremia -Blood culture positive for E. coli. Patient started on IV antibiotics. -ID following LLE DVT: -Recent diagnosis of LLE DVT. Was started on Eliquis -Due to drop in hgb, and concern for possible bleed, ASA and eliquis held -Vascular Surgery has placed IVC filter -Hope to get pt back on anticoagulation once she is stable Multiple myeloma -Oncology history as dictated in consult -She is s/p cycle 2, day 8 of RVD. She will not complete C2 D15. Her treatment will be postponed until she is adequately recovered and healed from surgery. -F/U appt with Primary Onc to assess her prior to resuming treatment-appt in DC plan
[2024-12-29 14:51] LABS: ABG Base Excess -3.3 mmol/L; ABG HCO3 19 mmol/L (21-25); ABG Oxygen Saturation 98.8 % (94-97); ABG PCO2 26 mmHg (35-45); ABG PH 7.48 (7.35-7.45); ABG PO2 103 mmHg (83-108); ABG TCO2 20 mmol/L (19-24); Allen Test Performed? Yes
[2024-12-29 15:21] LABS: Glucose,Whole Blood 186 mg/dL (70-110)
--- NOTE | 2024-12-29 16:15 | P.PN ---
Subjective Progress Note Date: 12/29/24 Principal diagnosis: Reason for follow-up is bacteremia perforated diverticulitis and abscess Patient is a 79-year-old female with a past medical history significant for Coronary Artery Disease (CAD), Cancer, Diabetes Mellitus, Hyperlipidemia, Hypertension, Thyroid Disorder presenting to the hospital for evaluation of abnormal CT that was done for abdominal pain with concern for perforated sigmoid diverticulitis did have a positive blood culture with E. coli probably this consultation.Patient is status post laparotomy sigmoid colectomy drainage of the interloop abscess and proximal omentectomy patient subsequent has been admitted to ICU on the vent. On today's evaluation that is 12/29/2024, Patient is afebrile this morning patient remains to be intubated on the vent FiO2 is currently stable at 30% no significant purulent secretion through the ET sedation is slowly being weaned off no other changes reported by the nursing staff. Patient white count normalized to 9.2, creatinine 0.89 Objective - Vital Signs Vital signs: Vital Signs Temp 97.7 F 12/29/24 08:00 Pulse 63 12/29/24 11:00 Resp 17 12/29/24 11:00 BP 130/56 12/29/24 11:00 Pulse Ox 100 12/29/24 11:00 FiO2 30 12/29/24 08:27 Intake & Output 12/28/24 12/29/24 12/29/24 18:59 06:59 18:59 Intake Total 2905.107 2232.030 863.314 Output Total 360 405 140 Balance 2545.107 1827.030 723.314 Weight 79.5 kg 86.5 kg Intake: IV 1778 1968 744 ACETAMINOPHEN IV (For NPO 100 ) 1,000 mg In Empty Bag 1 bag @ 400 mls/hr IVPB Q6HR [facility] Rx#:[id number] Mvi, Adult No.4 with Vit 315 429 132 K 10 ml Trace (Conc-1Ml/ Dose) 1 ml In Amino Acid 5%-D20w+Lytes*E* 1,000 ml @ 30 mls/hr IV .Q24H [facility] Rx#:[id number] Piperacillin-Tazobactam 3 200 100 100 .375 gm In Sodium Chloride 0.9% 100 ml @ 25 mls/hr IVPB Q8H [facility] Rx#: [id number] Potassium Chloride 10 meq 100 In Water For Injection 1 100ml.bag @ 100 mls/hr IVPB Q1H [facility] Rx#: [id number] Potassium Chloride 20 meq 400 In Water For Injection 1 100ml.bag @ 50 mls/hr IVPB Q2H [facility] Rx#: [id number] Sodium Chloride 0.9% 1, 750 900 300 000 ml @ 75 mls/hr IV . [id number] [facility] Rx#:[id number] Sodium Chloride 0.9% 500 500 ml 500 ml @ 999 mls/hr IV .Q31M [facility] Rx#:[id number] pressure bag 33 39 12 Intake, IV Titration 507.107 264.030 119.314 Amount Amiodarone 450 mg In 236.394 Dextrose 5% in Water 250 ml @ 0.5 MG/MIN 16.667 mls/hr IV .Q15H [facility] Rx#: [id number] Insulin Regular 100 unit 85.122 55.463 42.57 In Sodium Chloride 0.9% 100 ml @ Titrate IV .Q0M [facility] Rx#:[id number] Norepinephrine 8 mg In 28.672 12.117 Sodium Chloride 0.9% 250 ml @ 0.03 MCG/KG/MIN 4. 563 mls/hr IV .Q24H [facility] Rx#:[id number] propofoL 1,000 mg In 156.919 196.450 76.744 Empty Bag 1 bag @ 15 MCG/ KG/MIN 5.715 mls/hr IV . [id number] [facility] Rx#:[id number] Blood Product 620 Rc As-1 Unit 310 [id number] Rc As-1 Unit 310 [id number] Output: Gastric Drainage 100 Drainage 0 0 Abdomen 0 0 Urine 360 305 140 Other: Voiding Method Indwelling Catheter Indwelling Catheter Indwelling Catheter ABP, PAP, CO, CI - Last Documented Arterial Blood Pressure 148/54 - Exam GENERAL DESCRIPTION: An elderly female intubated on the vent RESPIRATORY SYSTEM: Unlabored breathing , decreased breath sounds at bases HEART: S1 S2 regular rate and rhythm , ABDOMEN: Soft , mild tenderness EXTREMITIES: No edema feet - Labs CBC & Chem 7: 12/29/24 04:11 12/29/24 04:11 Labs: Abnormal Lab Results - Last 24 Hours (Table) 12/25/24 12/28/24 12/28/24 Range/Units 11:12 12:15 12:58 WBC (3.8-10.6) k/uL RBC (3.80-5.40) m/uL Hgb (11.4-16.0) gm/dL Hct (34.0-46.0) % RDW (11.5-15.5) % Plt Count (150-450) k/uL Neutrophils # (1.3-7.7) k/uL Lymphocytes # (1.0-4.8) k/uL ABG pCO2 (35-45) mmHg ABG pO2 (83-108) mmHg ABG HCO3 (21-25) mmol/L ABG O2 Saturation (94-97) % Hemoglobin (11.4-16.0) gm/dL Sodium (137-145) mmol/L Carbon Dioxide (22-30) mmol/L BUN (7-17) mg/dL Glucose (74-99) mg/dL POC Glucose (mg/dL) 117 H 124 H (70-110) mg/dL Calcium (8.4-10.2) mg/dL Crossmatch See Detail 12/28/24 12/28/24 12/28/24 Range/Units 15:06 16:13 17:23 WBC (3.8-10.6) k/uL RBC (3.80-5.40) m/uL Hgb (11.4-16.0) gm/dL Hct (34.0-46.0) % RDW (11.5-15.5) % Plt Count (150-450) k/uL Neutrophils # (1.3-7.7) k/uL Lymphocytes # (1.0-4.8) k/uL ABG pCO2 (35-45) mmHg ABG pO2 (83-108) mmHg ABG HCO3 (21-25) mmol/L ABG O2 Saturation (94-97) % Hemoglobin (11.4-16.0) gm/dL Sodium (137-145) mmol/L Carbon Dioxide (22-30) mmol/L BUN (7-17) mg/dL Glucose (74-99) mg/dL POC Glucose (mg/dL) 171 H 195 H 182 H (70-110) mg/dL Calcium (8.4-10.2) mg/dL Crossmatch 12/28/24 12/28/24 12/28/24 Range/Units 17:23 18:10 19:04 WBC 12.0 H (3.8-10.6) k/uL RBC 3.30 L (3.80-5.40) m/uL Hgb 9.6 L D (11.4-16.0) gm/dL Hct 28.9 L (34.0-46.0) % RDW 16.1 H (11.5-15.5) % Plt Count 37 L (150-450) k/uL Neutrophils # 11.2 H (1.3-7.7) k/uL Lymphocytes # 0.3 L (1.0-4.8) k/uL ABG pCO2 (35-45) mmHg ABG pO2 (83-108) mmHg ABG HCO3 (21-25) mmol/L ABG O2 Saturation (94-97) % Hemoglobin (11.4-16.0) gm/dL Sodium (137-145) mmol/L Carbon Dioxide (22-30) mmol/L BUN (7-17) mg/dL Glucose (74-99) mg/dL POC Glucose (mg/dL) 179 H 186 H (70-110) mg/dL Calcium (8.4-10.2) mg/dL Crossmatch 12/28/24 12/28/24 12/28/24 Range/Units 20:48 21:56 23:43 WBC (3.8-10.6) k/uL RBC (3.80-5.40) m/uL Hgb (11.4-16.0) gm/dL Hct (34.0-46.0) % RDW (11.5-15.5) % Plt Count (150-450) k/uL Neutrophils # (1.3-7.7) k/uL Lymphocytes # (1.0-4.8) k/uL ABG pCO2 (35-45) mmHg ABG pO2 (83-108) mmHg ABG HCO3 (21-25) mmol/L ABG O2 Saturation (94-97) % Hemoglobin (11.4-16.0) gm/dL Sodium (137-145) mmol/L Carbon Dioxide (22-30) mmol/L BUN (7-17) mg/dL Glucose (74-99) mg/dL POC Glucose (mg/dL) 149 H 145 H 125 H (70-110) mg/dL Calcium (8.4-10.2) mg/dL Crossmatch 12/29/24 12/29/24 12/29/24 Range/Units 00:53 02:32 04:09 WBC (3.8-10.6) k/uL RBC (3.80-5.40) m/uL Hgb (11.4-16.0) gm/dL Hct (34.0-46.0) % RDW (11.5-15.5) % Plt Count (150-450) k/uL Neutrophils # (1.3-7.7) k/uL Lymphocytes # (1.0-4.8) k/uL ABG pCO2 (35-45) mmHg ABG pO2 (83-108) mmHg ABG HCO3 (21-25) mmol/L ABG O2 Saturation (94-97) % Hemoglobin (11.4-16.0) gm/dL Sodium (137-145) mmol/L Carbon Dioxide (22-30) mmol/L BUN (7-17) mg/dL Glucose (74-99) mg/dL POC Glucose (mg/dL) 154 H 197 H 188 H (70-110) mg/dL Calcium (8.4-10.2) mg/dL Crossmatch 12/29/24 12/29/24 12/29/24 Range/Units 04:11 04:11 04:39 WBC (3.8-10.6) k/uL RBC 2.98 L (3.80-5.40) m/uL Hgb 8.7 L (11.4-16.0) gm/dL Hct 26.4 L (34.0-46.0) % RDW 16.5 H (11.5-15.5) % Plt Count 37 L (150-450) k/uL Neutrophils # 8.4 H (1.3-7.7) k/uL Lymphocytes # 0.3 L (1.0-4.8) k/uL ABG pCO2 30 L (35-45) mmHg ABG pO2 114 H (83-108) mmHg ABG HCO3 20 L (21-25) mmol/L ABG O2 Saturation 99.0 H (94-97) % Hemoglobin 8.7 L (11.4-16.0) gm/dL Sodium 128 L (137-145) mmol/L Carbon Dioxide 19 L (22-30) mmol/L BUN 26 H (7-17) mg/dL Glucose 160 H (74-99) mg/dL POC Glucose (mg/dL) (70-110) mg/dL Calcium 8.2 L (8.4-10.2) mg/dL Crossmatch 12/29/24 12/29/24 12/29/24 Range/Units 05:23 06:14 06:54 WBC (3.8-10.6) k/uL RBC (3.80-5.40) m/uL Hgb (11.4-16.0) gm/dL Hct (34.0-46.0) % RDW (11.5-15.5) % Plt Count (150-450) k/uL Neutrophils # (1.3-7.7) k/uL Lymphocytes # (1.0-4.8) k/uL ABG pCO2 (35-45) mmHg ABG pO2 (83-108) mmHg ABG HCO3 (21-25) mmol/L ABG O2 Saturation (94-97) % Hemoglobin (11.4-16.0) gm/dL Sodium (137-145) mmol/L Carbon Dioxide (22-30) mmol/L BUN (7-17) mg/dL Glucose (74-99) mg/dL POC Glucose (mg/dL) 161 H 150 H 141 H (70-110) mg/dL Calcium (8.4-10.2) mg/dL Crossmatch 12/29/24 12/29/24 12/29/24 Range/Units 08:59 10:05 10:59 WBC (3.8-10.6) k/uL RBC (3.80-5.40) m/uL Hgb (11.4-16.0) gm/dL Hct (34.0-46.0) % RDW (11.5-15.5) % Plt Count (150-450) k/uL Neutrophils # (1.3-7.7) k/uL Lymphocytes # (1.0-4.8) k/uL ABG pCO2 (35-45) mmHg ABG pO2 (83-108) mmHg ABG HCO3 (21-25) mmol/L ABG O2 Saturation (94-97) % Hemoglobin (11.4-16.0) gm/dL Sodium (137-145) mmol/L Carbon Dioxide (22-30) mmol/L BUN (7-17) mg/dL Glucose (74-99) mg/dL POC Glucose (mg/dL) 128 H 137 H 154 H (70-110) mg/dL Calcium (8.4-10.2) mg/dL Crossmatch Microbiology - Last 24 Hours (Table) 12/27/24 09:02 Gram Stain - Final Sputum Sputum Culture - Final Assessment and Plan (1) Perforation of sigmoid colon due to diverticulitis Current Visit: Yes Status: Acute Code(s): K57.20 - DVTRCLI OF LG INT W PERFORATION AND ABSCESS W/O BLEEDING SNOMED Code(s): 8097293149906718 (2) Bacteremia Current Visit: Yes Status: Acute Code(s): R78.81 - BACTEREMIA SNOMED Code(s): 0406262 Plan: 1patient with E. coli bacteremia source likely abdominal in this patient with evidence of abnormal CT with free air concerning for perforated diverticulitis but did not mention any abscess, patient did have a repeat CT that has been suggestive of perforated diverticulitis and abscess and patient status post laparotomy sigmoid colectomy drainage of the interloop abscess procedure completed on 12/26/2024 2patient is afebrile patient white count has normalized patient will be continued on Zosyn and monitor clinical course closely Son at the bedside question concern answered Dictation was produced using [email or web address] dictation software. please excuse any grammatical, word or spelling errors. Time with Patient: Less than 30
[2024-12-29 16:21] LABS: Glucose,Whole Blood 173 mg/dL (70-110)
--- NOTE | 2024-12-29 16:50 | P.PN ---
Subjective Patient is seen for follow-up for acute kidney injury. Patient remains on the vent Maintained on normal saline Started on TPN, currently running at 30 mL/h. Urine output 40 to 20 cc an hour. Continues to require thermal blanket Serum creatinine 0.8 today and serum sodium staying at 128 Objective - Vital Signs Vital signs: Vital Signs Temp 97.6 F 12/29/24 16:00 Pulse 82 12/29/24 16:33 Resp 17 12/29/24 16:00 BP 145/69 12/29/24 16:00 Pulse Ox 99 12/29/24 16:00 FiO2 30 12/29/24 12:47 Intake & Output 12/28/24 12/29/24 12/29/24 18:59 06:59 18:59 Intake Total 2905.107 2232.030 1421.045 Output Total 360 405 245 Balance 2545.107 9027.288 2891.045 Weight 79.5 kg 86.5 kg Intake: IV 1778 1968 1299 ACETAMINOPHEN IV (For NPO 100 ) 1,000 mg In Empty Bag 1 bag @ 400 mls/hr IVPB Q6HR [facility] Rx#:[id number] Mvi, Adult No.4 with Vit 315 429 297 K 10 ml Trace (Conc-1Ml/ Dose) 1 ml In Amino Acid 5%-D20w+Lytes*E* 1,000 ml @ 30 mls/hr IV .Q24H [facility] Rx#:[id number] Piperacillin-Tazobactam 3 200 100 100 .375 gm In Sodium Chloride 0.9% 100 ml @ 25 mls/hr IVPB Q8H [facility] Rx#: [id number] Potassium Chloride 10 meq 100 In Water For Injection 1 100ml.bag @ 100 mls/hr IVPB Q1H [facility] Rx#: [id number] Potassium Chloride 20 meq 400 In Water For Injection 1 100ml.bag @ 50 mls/hr IVPB Q2H [facility] Rx#: [id number] Sodium Chloride 0.9% 1, 750 900 675 000 ml @ 75 mls/hr IV . [id number] [facility] Rx#:[id number] Sodium Chloride 0.9% 500 500 ml 500 ml @ 999 mls/hr IV .Q31M [facility] Rx#:[id number] pressure bag 33 39 27 Intake, IV Titration 507.107 264.030 122.045 Amount Amiodarone 450 mg In 236.394 Dextrose 5% in Water 250 ml @ 0.5 MG/MIN 16.667 mls/hr IV .Q15H [facility] Rx#: [id number] Insulin Regular 100 unit 85.122 55.463 42.57 In Sodium Chloride 0.9% 100 ml @ Titrate IV .Q0M [facility] Rx#:[id number] Norepinephrine 8 mg In 28.672 12.117 Sodium Chloride 0.9% 250 ml @ 0.03 MCG/KG/MIN 4. 563 mls/hr IV .Q24H [facility] Rx#:[id number] propofoL 1,000 mg In 156.919 196.450 79.475 Empty Bag 1 bag @ 15 MCG/ KG/MIN 5.715 mls/hr IV . [id number] [facility] Rx#:[id number] Blood Product 620 Rc As-1 Unit 310 [id number] Rc As-1 Unit 310 [id number] Output: Gastric Drainage 100 Drainage 0 0 Abdomen 0 0 Urine 360 305 245 Other: Voiding Method Indwelling Catheter Indwelling Catheter Indwelling Catheter ABP, PAP, CO, CI - Last Documented Arterial Blood Pressure 169/71 - Exam Patient is sedated and intubated Examination of the heart S1 and S2 Examination of the lungs bilateral breath sounds are heard Abdomen is soft., MILADIS drain noted colostomy noted Examination of lower extremities shows 1+ edema - Labs CBC & Chem 7: 12/29/24 04:11 12/29/24 04:11 Labs: Abnormal Lab Results - Last 24 Hours (Table) 12/28/24 12/28/24 12/28/24 Range/Units 17:23 17:23 18:10 WBC 12.0 H (3.8-10.6) k/uL RBC 3.30 L (3.80-5.40) m/uL Hgb 9.6 L D (11.4-16.0) gm/dL Hct 28.9 L (34.0-46.0) % RDW 16.1 H (11.5-15.5) % Plt Count 37 L (150-450) k/uL Neutrophils # 11.2 H (1.3-7.7) k/uL Lymphocytes # 0.3 L (1.0-4.8) k/uL ABG pH (7.35-7.45) ABG pCO2 (35-45) mmHg ABG pO2 (83-108) mmHg ABG HCO3 (21-25) mmol/L ABG O2 Saturation (94-97) % Hemoglobin (11.4-16.0) gm/dL Sodium (137-145) mmol/L Carbon Dioxide (22-30) mmol/L BUN (7-17) mg/dL Glucose (74-99) mg/dL POC Glucose (mg/dL) 182 H 179 H (70-110) mg/dL Calcium (8.4-10.2) mg/dL 12/28/24 12/28/24 12/28/24 Range/Units 19:04 20:48 21:56 WBC (3.8-10.6) k/uL RBC (3.80-5.40) m/uL Hgb (11.4-16.0) gm/dL Hct (34.0-46.0) % RDW (11.5-15.5) % Plt Count (150-450) k/uL Neutrophils # (1.3-7.7) k/uL Lymphocytes # (1.0-4.8) k/uL ABG pH (7.35-7.45) ABG pCO2 (35-45) mmHg ABG pO2 (83-108) mmHg ABG HCO3 (21-25) mmol/L ABG O2 Saturation (94-97) % Hemoglobin (11.4-16.0) gm/dL Sodium (137-145) mmol/L Carbon Dioxide (22-30) mmol/L BUN (7-17) mg/dL Glucose (74-99) mg/dL POC Glucose (mg/dL) 186 H 149 H 145 H (70-110) mg/dL Calcium (8.4-10.2) mg/dL 12/28/24 12/29/24 12/29/24 Range/Units 23:43 00:53 02:32 WBC (3.8-10.6) k/uL RBC (3.80-5.40) m/uL Hgb (11.4-16.0) gm/dL Hct (34.0-46.0) % RDW (11.5-15.5) % Plt Count (150-450) k/uL Neutrophils # (1.3-7.7) k/uL Lymphocytes # (1.0-4.8) k/uL ABG pH (7.35-7.45) ABG pCO2 (35-45) mmHg ABG pO2 (83-108) mmHg ABG HCO3 (21-25) mmol/L ABG O2 Saturation (94-97) % Hemoglobin (11.4-16.0) gm/dL Sodium (137-145) mmol/L Carbon Dioxide (22-30) mmol/L BUN (7-17) mg/dL Glucose (74-99) mg/dL POC Glucose (mg/dL) 125 H 154 H 197 H (70-110) mg/dL Calcium (8.4-10.2) mg/dL 12/29/24 12/29/24 12/29/24 Range/Units 04:09 04:11 04:11 WBC (3.8-10.6) k/uL RBC 2.98 L (3.80-5.40) m/uL Hgb 8.7 L (11.4-16.0) gm/dL Hct 26.4 L (34.0-46.0) % RDW 16.5 H (11.5-15.5) % Plt Count 37 L (150-450) k/uL Neutrophils # 8.4 H (1.3-7.7) k/uL Lymphocytes # 0.3 L (1.0-4.8) k/uL ABG pH (7.35-7.45) ABG pCO2 (35-45) mmHg ABG pO2 (83-108) mmHg ABG HCO3 (21-25) mmol/L ABG O2 Saturation (94-97) % Hemoglobin (11.4-16.0) gm/dL Sodium 128 L (137-145) mmol/L Carbon Dioxide 19 L (22-30) mmol/L BUN 26 H (7-17) mg/dL Glucose 160 H (74-99) mg/dL POC Glucose (mg/dL) 188 H (70-110) mg/dL Calcium 8.2 L (8.4-10.2) mg/dL 12/29/24 12/29/24 12/29/24 Range/Units 04:39 05:23 06:14 WBC (3.8-10.6) k/uL RBC (3.80-5.40) m/uL Hgb (11.4-16.0) gm/dL Hct (34.0-46.0) % RDW (11.5-15.5) % Plt Count (150-450) k/uL Neutrophils # (1.3-7.7) k/uL Lymphocytes # (1.0-4.8) k/uL ABG pH (7.35-7.45) ABG pCO2 30 L (35-45) mmHg ABG pO2 114 H (83-108) mmHg ABG HCO3 20 L (21-25) mmol/L ABG O2 Saturation 99.0 H (94-97) % Hemoglobin 8.7 L (11.4-16.0) gm/dL Sodium (137-145) mmol/L Carbon Dioxide (22-30) mmol/L BUN (7-17) mg/dL Glucose (74-99) mg/dL POC Glucose (mg/dL) 161 H 150 H (70-110) mg/dL Calcium (8.4-10.2) mg/dL 12/29/24 12/29/24 12/29/24 Range/Units 06:54 08:59 10:05 WBC (3.8-10.6) k/uL RBC (3.80-5.40) m/uL Hgb (11.4-16.0) gm/dL Hct (34.0-46.0) % RDW (11.5-15.5) % Plt Count (150-450) k/uL Neutrophils # (1.3-7.7) k/uL Lymphocytes # (1.0-4.8) k/uL ABG pH (7.35-7.45) ABG pCO2 (35-45) mmHg ABG pO2 (83-108) mmHg ABG HCO3 (21-25) mmol/L ABG O2 Saturation (94-97) % Hemoglobin (11.4-16.0) gm/dL Sodium (137-145) mmol/L Carbon Dioxide (22-30) mmol/L BUN (7-17) mg/dL Glucose (74-99) mg/dL POC Glucose (mg/dL) 141 H 128 H 137 H (70-110) mg/dL Calcium (8.4-10.2) mg/dL 12/29/24 12/29/24 12/29/24 Range/Units 10:59 12:04 13:04 WBC (3.8-10.6) k/uL RBC (3.80-5.40) m/uL Hgb (11.4-16.0) gm/dL Hct (34.0-46.0) % RDW (11.5-15.5) % Plt Count (150-450) k/uL Neutrophils # (1.3-7.7) k/uL Lymphocytes # (1.0-4.8) k/uL ABG pH (7.35-7.45) ABG pCO2 (35-45) mmHg ABG pO2 (83-108) mmHg ABG HCO3 (21-25) mmol/L ABG O2 Saturation (94-97) % Hemoglobin (11.4-16.0) gm/dL Sodium (137-145) mmol/L Carbon Dioxide (22-30) mmol/L BUN (7-17) mg/dL Glucose (74-99) mg/dL POC Glucose (mg/dL) 154 H 174 H 188 H (70-110) mg/dL Calcium (8.4-10.2) mg/dL 12/29/24 12/29/24 12/29/24 Range/Units 14:08 14:45 15:19 WBC (3.8-10.6) k/uL RBC (3.80-5.40) m/uL Hgb (11.4-16.0) gm/dL Hct (34.0-46.0) % RDW (11.5-15.5) % Plt Count (150-450) k/uL Neutrophils # (1.3-7.7) k/uL Lymphocytes # (1.0-4.8) k/uL ABG pH 7.48 H (7.35-7.45) ABG pCO2 26 L (35-45) mmHg ABG pO2 (83-108) mmHg ABG HCO3 19 L (21-25) mmol/L ABG O2 Saturation 98.8 H (94-97) % Hemoglobin 9.7 L (11.4-16.0) gm/dL Sodium (137-145) mmol/L Carbon Dioxide (22-30) mmol/L BUN (7-17) mg/dL Glucose (74-99) mg/dL POC Glucose (mg/dL) 208 H 186 H (70-110) mg/dL Calcium (8.4-10.2) mg/dL 12/29/24 Range/Units 16:20 WBC (3.8-10.6) k/uL RBC (3.80-5.40) m/uL Hgb (11.4-16.0) gm/dL Hct (34.0-46.0) % RDW (11.5-15.5) % Plt Count (150-450) k/uL Neutrophils # (1.3-7.7) k/uL Lymphocytes # (1.0-4.8) k/uL ABG pH (7.35-7.45) ABG pCO2 (35-45) mmHg ABG pO2 (83-108) mmHg ABG HCO3 (21-25) mmol/L ABG O2 Saturation (94-97) % Hemoglobin (11.4-16.0) gm/dL Sodium (137-145) mmol/L Carbon Dioxide (22-30) mmol/L BUN (7-17) mg/dL Glucose (74-99) mg/dL POC Glucose (mg/dL) 173 H (70-110) mg/dL Calcium (8.4-10.2) mg/dL Microbiology - Last 24 Hours (Table) 12/27/24 09:02 Gram Stain - Final Sputum Sputum Culture - Final Assessment and Plan Assessment: 1. Acute kidney injury secondary to septic ATN. Baseline creatinine near 0.8 and peaked at 1.68 this admission -0.[address] scan from December 24, 2024 showed no evidence of hydronephrosis. 2. Multiple myeloma maintained on chemotherapy. 3. Acute diverticulitis with perforation being followed by surgery. Status post sigmoid colectomy with drainage of abscess December 26, 2024. 4. Acute blood loss anemia status post blood transfusion this admission. Status post IV DDAVP. 5. Metabolic acidosis secondary to acute kidney injury and IV fluids. Status post bicarb drip. Improved. 6. Hyponatremia, appears hypervolemic with third spacing 7. E. coli bacteremia on antibiotics. Plan: Discontinue normal saline Continue with TPN Replace potassium Repeat labs in a.m.
[2024-12-29 17:06] LABS: Glucose,Whole Blood 158 mg/dL (70-110)
[2024-12-29 18:13] LABS: Glucose,Whole Blood 145 mg/dL (70-110)
[2024-12-29] MEDS: FUROSEMIDE 10 MG/ML 4 ML VIAL IV STA (18:32)
[2024-12-29 20:22] LABS: Glucose,Whole Blood 129 mg/dL (70-110)
[2024-12-29 20:56] LABS: Glucose,Whole Blood 134 mg/dL (70-110)
[2024-12-29] MEDS: HYDROCORTISONE SUCCINATE 100 MG/2 ML VIAL IV SCH (21:01)
[2024-12-29 23:07] LABS: Glucose,Whole Blood 156 mg/dL (70-110)
[2024-12-30 01:06] LABS: Glucose,Whole Blood 185 mg/dL (70-110)
[2024-12-30 02:11] LABS: Glucose,Whole Blood 181 mg/dL (70-110)
[2024-12-30 03:00] LABS: Glucose,Whole Blood 165 mg/dL (70-110)
[2024-12-30] MEDS: MORPHINE SULFATE 2 MG/ML SYRINGE IV PRN (03:08)
[2024-12-30 04:17] LABS: Glucose,Whole Blood 163 mg/dL (70-110)
[2024-12-30 05:15] LABS: Basophils # (A) 0.1 k/uL (0-0.2); Basophils % (A) 1 %; Eosinophils # (A) 0.1 k/uL (0-0.7); Eosinophils % (A) 1 %; HCT 26.8 % (34.0-46.0); HGB 9.2 gm/dL (11.4-16.0); Lymphocytes # (A) 0.3 k/uL (1.0-4.8); Lymphocytes % (A) 3 %; MCH 29.7 pg (25.0-35.0); MCHC 34.4 g/dL (31.0-37.0); MCV 86.5 fL (80.0-100.0); Mean Platelet Volume 12.3; Monocytes # (A) 0.3 k/uL (0-1.0); Monocytes % (A) 4 %; Neutrophils # (A) 8.3 k/uL (1.3-7.7); Neutrophils % (A) 90 %; Poikilocytosis Slight; RDW 15.9 % (11.5-15.5); WBC 9.3 k/uL (3.8-10.6)
[2024-12-30 05:24] LABS: Platelet Count 50 k/uL (150-450)
[2024-12-30 05:32] LABS: African American GFR (CKD) 66 (>60 ml/min/1.73 sqM); Anion Gap 7 mmol/L; Blood Urea Nitrogen 30 mg/dL (7-17); Calcium 8.2 mg/dL (8.4-10.2); Carbon Dioxide 20 mmol/L (22-30); Chloride 104 mmol/L (98-107); Glucose 150 mg/dL (74-99); Non-African American GFR(CKD) 57 (>60 ml/min/1.73 sqM); Phosphorus 4.6 mg/dL (2.5-4.5); Potassium 3.6 mmol/L (3.5-5.1); Sodium 131 mmol/L (137-145)
[2024-12-30] MEDS ORDERED: Potassium Replacement Protocol 1 EACH MISC MISCELLANE PRN (05:34)
[2024-12-30] MEDS: hydrALAZINE HCL 20 MG/ML 1 ML VIAL IVP PRN (05:56)
[2024-12-30] MEDS: POTASSIUM CHLORIDE 10 MEQ in WATER FOR INJECTION 1 100ML.BAG IVPB SCH (05:57)
--- NOTE | 2024-12-30 07:53 | P.PN ---
Subjective Progress Note Date: 12/29/24 Principal diagnosis: . Perforated diverticulum , complicated by multiple myeloma Status post resected bowel secondary to perforated diverticulum postop day 3 patient awake with limited responses Objective - Vital Signs Vital signs: Vital Signs Temp 98.0 F 12/30/24 00:00 Pulse 79 12/30/24 06:00 Resp 13 12/30/24 06:00 BP 164/79 12/30/24 06:00 Pulse Ox 99 12/30/24 06:00 FiO2 35 12/30/24 05:36 Intake & Output 12/29/24 12/30/24 12/30/24 18:59 06:59 18:59 Intake Total 1431.959 5633.723 Output Total 290 1475 Balance 1569.890 -433.277 Weight 86.8 kg Intake: IV 1721 244 ACETAMINOPHEN IV (For NPO 200 100 ) 1,000 mg In Empty Bag 1 bag @ 400 mls/hr IVPB Q6HR [facility] Rx#:[id number] Mvi, Adult No.4 with Vit 363 33 K 10 ml Trace (Conc-1Ml/ Dose) 1 ml In Amino Acid 5%-D20w+Lytes*E* 1,000 ml @ 30 mls/hr IV .Q24H [facility] Rx#:[id number] Piperacillin-Tazobactam 3 200 .375 gm In Sodium Chloride 0.9% 100 ml @ 25 mls/hr IVPB Q8H [facility] Rx#: [id number] Potassium Chloride 10 meq 100 In Water For Injection 1 100ml.bag @ 100 mls/hr IVPB Q1H [facility] Rx#: [id number] Sodium Chloride 0.9% 1, 825 75 000 ml @ 75 mls/hr IV . [id number] [facility] Rx#:[id number] pressure bag 33 36 Intake, IV Titration 138.890 797.723 Amount Insulin Regular 100 unit 59.415 17.723 In Sodium Chloride 0.9% 100 ml @ Titrate IV .Q0M [facility] Rx#:[id number] Mvi, Adult No.4 with Vit 198 K 10 ml Trace (Conc-1Ml/ Dose) 1 ml Sodium Acetate 22 meq Potassium Acetate 16 meq In Amino Acid 5%- D20w+Lytes*E* 1,000 ml @ 33 mls/hr IV .Q24H [facility] Rx #:[id number] Mvi, Adult No.4 with Vit 132 K 10 ml Trace (Conc-1Ml/ Dose) 1 ml Sodium Chloride 4Meq/ml Vial 12 meq Potassium Acetate 10 meq In Amino Acid 5%-D20w +Lytes*E* 1,000 ml @ 33 mls/hr IV .Q24H [facility] Rx#: [id number] Sodium Chloride 0.9% 1, 450 000 ml @ 75 mls/hr IV . [id number] [facility] Rx#:[id number] propofoL 1,000 mg In 79.475 Empty Bag 1 bag @ 15 MCG/ KG/MIN 5.715 mls/hr IV . [id number] [facility] Rx#:[id number] Output: Drainage 0 20 Abdomen 0 20 Urine 290 1405 Stool 50 Other: Voiding Method Indwelling Catheter Indwelling Catheter ABP, PAP, CO, CI - Last Documented Arterial Blood Pressure 149/82 - Exam General: [Patient awake, limited responses. Patient in no acute distress.] HEENT: [PERRL. EOMI. No pharyngeal erythema or exudate.] Neck: [No adenopathy.] Cardiac: [Heart regular in rate and rhythm. No S3. No S4. No clicks, rubs. No murmur.] Lungs: [Clear to auscultation bilaterally.] Abdomen: [No mass. No organomegaly. Bowel sounds presnt and normoactive in all 4 quadrants.] Extremes: [No edema no cyanosis no claudication normal pulses] : normal female Musculoskeletal: [No joint erythema, edema or tenderness.] Skin: [No rash.] Neurologic: [No lateralizing deficits. CN II - XII grossly intact.] Lymphatic: [No adenopathy.] - Labs CBC & Chem 7: 12/30/24 05:00 12/30/24 05:00 Labs: Abnormal Lab Results - Last 24 Hours (Table) 12/29/24 12/29/24 12/29/24 Range/Units 08:59 10:05 10:59 RBC (3.80-5.40) m/uL Hgb (11.4-16.0) gm/dL Hct (34.0-46.0) % RDW (11.5-15.5) % Plt Count (150-450) k/uL Neutrophils # (1.3-7.7) k/uL Lymphocytes # (1.0-4.8) k/uL ABG pH (7.35-7.45) ABG pCO2 (35-45) mmHg ABG HCO3 (21-25) mmol/L ABG O2 Saturation (94-97) % Hemoglobin (11.4-16.0) gm/dL Sodium (137-145) mmol/L Carbon Dioxide (22-30) mmol/L BUN (7-17) mg/dL Glucose (74-99) mg/dL POC Glucose (mg/dL) 128 H 137 H 154 H (70-110) mg/dL Calcium (8.4-10.2) mg/dL Phosphorus (2.5-4.5) mg/dL 12/29/24 12/29/24 12/29/24 Range/Units 12:04 13:04 14:08 RBC (3.80-5.40) m/uL Hgb (11.4-16.0) gm/dL Hct (34.0-46.0) % RDW (11.5-15.5) % Plt Count (150-450) k/uL Neutrophils # (1.3-7.7) k/uL Lymphocytes # (1.0-4.8) k/uL ABG pH (7.35-7.45) ABG pCO2 (35-45) mmHg ABG HCO3 (21-25) mmol/L ABG O2 Saturation (94-97) % Hemoglobin (11.4-16.0) gm/dL Sodium (137-145) mmol/L Carbon Dioxide (22-30) mmol/L BUN (7-17) mg/dL Glucose (74-99) mg/dL POC Glucose (mg/dL) 174 H 188 H 208 H (70-110) mg/dL Calcium (8.4-10.2) mg/dL Phosphorus (2.5-4.5) mg/dL 12/29/24 12/29/24 12/29/24 Range/Units 14:45 15:19 16:20 RBC (3.80-5.40) m/uL Hgb (11.4-16.0) gm/dL Hct (34.0-46.0) % RDW (11.5-15.5) % Plt Count (150-450) k/uL Neutrophils # (1.3-7.7) k/uL Lymphocytes # (1.0-4.8) k/uL ABG pH 7.48 H (7.35-7.45) ABG pCO2 26 L (35-45) mmHg ABG HCO3 19 L (21-25) mmol/L ABG O2 Saturation 98.8 H (94-97) % Hemoglobin 9.7 L (11.4-16.0) gm/dL Sodium (137-145) mmol/L Carbon Dioxide (22-30) mmol/L BUN (7-17) mg/dL Glucose (74-99) mg/dL POC Glucose (mg/dL) 186 H 173 H (70-110) mg/dL Calcium (8.4-10.2) mg/dL Phosphorus (2.5-4.5) mg/dL 12/29/24 12/29/24 12/29/24 Range/Units 17:05 18:11 20:21 RBC (3.80-5.40) m/uL Hgb (11.4-16.0) gm/dL Hct (34.0-46.0) % RDW (11.5-15.5) % Plt Count (150-450) k/uL Neutrophils # (1.3-7.7) k/uL Lymphocytes # (1.0-4.8) k/uL ABG pH (7.35-7.45) ABG pCO2 (35-45) mmHg ABG HCO3 (21-25) mmol/L ABG O2 Saturation (94-97) % Hemoglobin (11.4-16.0) gm/dL Sodium (137-145) mmol/L Carbon Dioxide (22-30) mmol/L BUN (7-17) mg/dL Glucose (74-99) mg/dL POC Glucose (mg/dL) 158 H 145 H 129 H (70-110) mg/dL Calcium (8.4-10.2) mg/dL Phosphorus (2.5-4.5) mg/dL 12/29/24 12/29/24 12/30/24 Range/Units 20:55 23:06 01:05 RBC (3.80-5.40) m/uL Hgb (11.4-16.0) gm/dL Hct (34.0-46.0) % RDW (11.5-15.5) % Plt Count (150-450) k/uL Neutrophils # (1.3-7.7) k/uL Lymphocytes # (1.0-4.8) k/uL ABG pH (7.35-7.45) ABG pCO2 (35-45) mmHg ABG HCO3 (21-25) mmol/L ABG O2 Saturation (94-97) % Hemoglobin (11.4-16.0) gm/dL Sodium (137-145) mmol/L Carbon Dioxide (22-30) mmol/L BUN (7-17) mg/dL Glucose (74-99) mg/dL POC Glucose (mg/dL) 134 H 156 H 185 H (70-110) mg/dL Calcium (8.4-10.2) mg/dL Phosphorus (2.5-4.5) mg/dL 12/30/24 12/30/24 12/30/24 Range/Units 02:09 02:58 04:15 RBC (3.80-5.40) m/uL Hgb (11.4-16.0) gm/dL Hct (34.0-46.0) % RDW (11.5-15.5) % Plt Count (150-450) k/uL Neutrophils # (1.3-7.7) k/uL Lymphocytes # (1.0-4.8) k/uL ABG pH (7.35-7.45) ABG pCO2 (35-45) mmHg ABG HCO3 (21-25) mmol/L ABG O2 Saturation (94-97) % Hemoglobin (11.4-16.0) gm/dL Sodium (137-145) mmol/L Carbon Dioxide (22-30) mmol/L BUN (7-17) mg/dL Glucose (74-99) mg/dL POC Glucose (mg/dL) 181 H 165 H 163 H (70-110) mg/dL Calcium (8.4-10.2) mg/dL Phosphorus (2.5-4.5) mg/dL 12/30/24 12/30/24 Range/Units 05:00 05:00 RBC 3.10 L (3.80-5.40) m/uL Hgb 9.2 L (11.4-16.0) gm/dL Hct 26.8 L (34.0-46.0) % RDW 15.9 H (11.5-15.5) % Plt Count 50 L (150-450) k/uL Neutrophils # 8.3 H (1.3-7.7) k/uL Lymphocytes # 0.3 L (1.0-4.8) k/uL ABG pH (7.35-7.45) ABG pCO2 (35-45) mmHg ABG HCO3 (21-25) mmol/L ABG O2 Saturation (94-97) % Hemoglobin (11.4-16.0) gm/dL Sodium 131 L (137-145) mmol/L Carbon Dioxide 20 L (22-30) mmol/L BUN 30 H (7-17) mg/dL Glucose 150 H (74-99) mg/dL POC Glucose (mg/dL) (70-110) mg/dL Calcium 8.2 L (8.4-10.2) mg/dL Phosphorus 4.6 H (2.5-4.5) mg/dL Microbiology - Last 24 Hours (Table) 12/27/24 09:02 Gram Stain - Final Sputum Sputum Culture - Final Assessment and Plan (1) Abdominal pain Current Visit: Yes Status: Acute Code(s): R10.9 - UNSPECIFIED ABDOMINAL PAIN SNOMED Code(s): 22627965 (2) Bacteremia Current Visit: Yes Status: Acute Code(s): R78.81 - BACTEREMIA SNOMED Code(s): 0513708 (3) Pancytopenia Current Visit: Yes Status: Acute Code(s): D61.818 - OTHER PANCYTOPENIA SNOMED Code(s): 345576705 (4) Perforated diverticulum Current Visit: Yes Status: Acute Priority: High Code(s): K57.80 - DVTRCLI OF INTEST, PART UNSP, W PERF AND ABSCESS W/O BLEED SNOMED Code(s): 29770893 (5) Perforation of sigmoid colon due to diverticulitis Current Visit: Yes Status: Acute Code(s): K57.20 - DVTRCLI OF LG INT W PERFORATION AND ABSCESS W/O BLEEDING SNOMED Code(s): 1722330534945237 (6) Pneumoperitoneum Current Visit: Yes Status: Acute Code(s): K66.8 - OTHER SPECIFIED DISORDERS OF PERITONEUM SNOMED Code(s): 30630147 (7) S/P colectomy Current Visit: Yes Status: Acute Code(s): Z90.49 - ACQUIRED ABSENCE OF OTHER SPECIFIED PARTS OF DIGESTIVE TRACT SNOMED Code(s): 348060420 (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 Current Visit: Yes Status: Acute Code(s): E11.59 - TYPE 2 DIABETES MELLITUS WITH OTH CIRCULATORY COMPLICATIONS SNOMED Code(s): 90951609 (9) Coronary artery 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 Current Visit: No Status: Acute Code(s): E11.59 - TYPE 2 DIABETES MELLITUS WITH OTH CIRCULATORY COMPLICATIONS; I25.10 - ATHSCL HEART DISEASE OF [place] CORONARY ARTERY W/O ANG PCTRS SNOMED Code(s): 27324437229502046 (10) Deep vein thrombosis (DVT) of lower extremity Current Visit: No Status: Acute Priority: Medium Code(s): I82.409 - ACUTE EMBOLISM AND THOMBOS UNSP DEEP VN UNSP LOWER EXTREMITY SNOMED Code(s): 712656636 (11) H/O four vessel coronary artery bypass graft Current Visit: No Status: Acute Code(s): Z95.1 - PRESENCE OF AORTOCORONARY BYPASS GRAFT SNOMED Code(s): 179184057 (12) Hypertension Current Visit: No Status: Acute Code(s): I10 - ESSENTIAL (PRIMARY) HYPERTENSION SNOMED Code(s): 30251367 (13) Multiple myeloma Current Visit: No Status: Acute Code(s): C90.00 - MULTIPLE MYELOMA NOT HAVING ACHIEVED REMISSION SNOMED Code(s): 664310622 Time with Patient: Greater than 30
--- NOTE | 2024-12-30 07:57 | P.PN ---
Subjective Progress Note Date: 12/28/24 Principal diagnosis: . Perforated diverticulum , complicated by multiple myeloma, still intubated Status post resected bowel secondary to perforated diverticulum postop day 3 patient awake with limited responses Objective - Vital Signs Vital signs: Vital Signs Temp 98.0 F 12/30/24 00:00 Pulse 79 12/30/24 06:00 Resp 13 12/30/24 06:00 BP 164/79 12/30/24 06:00 Pulse Ox 99 12/30/24 06:00 FiO2 35 12/30/24 05:36 Intake & Output 12/29/24 12/30/24 12/30/24 18:59 06:59 18:59 Intake Total 1749.703 4511.723 Output Total 290 1475 Balance 1569.890 -433.277 Weight 86.8 kg Intake: IV 1721 244 ACETAMINOPHEN IV (For NPO 200 100 ) 1,000 mg In Empty Bag 1 bag @ 400 mls/hr IVPB Q6HR [facility] Rx#:[id number] Mvi, Adult No.4 with Vit 363 33 K 10 ml Trace (Conc-1Ml/ Dose) 1 ml In Amino Acid 5%-D20w+Lytes*E* 1,000 ml @ 30 mls/hr IV .Q24H [facility] Rx#:[id number] Piperacillin-Tazobactam 3 200 .375 gm In Sodium Chloride 0.9% 100 ml @ 25 mls/hr IVPB Q8H [facility] Rx#: [id number] Potassium Chloride 10 meq 100 In Water For Injection 1 100ml.bag @ 100 mls/hr IVPB Q1H [facility] Rx#: [id number] Sodium Chloride 0.9% 1, 825 75 000 ml @ 75 mls/hr IV . [id number] [facility] Rx#:[id number] pressure bag 33 36 Intake, IV Titration 138.890 797.723 Amount Insulin Regular 100 unit 59.415 17.723 In Sodium Chloride 0.9% 100 ml @ Titrate IV .Q0M [facility] Rx#:[id number] Mvi, Adult No.4 with Vit 198 K 10 ml Trace (Conc-1Ml/ Dose) 1 ml Sodium Acetate 22 meq Potassium Acetate 16 meq In Amino Acid 5%- D20w+Lytes*E* 1,000 ml @ 33 mls/hr IV .Q24H [facility] Rx #:[id number] Mvi, Adult No.4 with Vit 132 K 10 ml Trace (Conc-1Ml/ Dose) 1 ml Sodium Chloride 4Meq/ml Vial 12 meq Potassium Acetate 10 meq In Amino Acid 5%-D20w +Lytes*E* 1,000 ml @ 33 mls/hr IV .Q24H [facility] Rx#: [id number] Sodium Chloride 0.9% 1, 450 000 ml @ 75 mls/hr IV . [id number] [facility] Rx#:[id number] propofoL 1,000 mg In 79.475 Empty Bag 1 bag @ 15 MCG/ KG/MIN 5.715 mls/hr IV . [id number] [facility] Rx#:[id number] Output: Drainage 0 20 Abdomen 0 20 Urine 290 1405 Stool 50 Other: Voiding Method Indwelling Catheter Indwelling Catheter ABP, PAP, CO, CI - Last Documented Arterial Blood Pressure 149/82 - Exam General: [Patient awake, limited responses. Patient intubated HEENT: [PERRL. EOMI. No pharyngeal erythema or exudate.] Neck: [No adenopathy.] Cardiac: [Heart regular in rate and rhythm. No S3. No S4. No clicks, rubs. No murmur.] Lungs: [Clear to auscultation bilaterally.] Abdomen: [No mass. No organomegaly. Bowel sounds presnt and normoactive in all 4 quadrants.] Extremes: [No edema no cyanosis no claudication normal pulses] : normal female Musculoskeletal: [No joint erythema, edema or tenderness.] Skin: [No rash.] Neurologic: [No lateralizing deficits. CN II - XII grossly intact.] Lymphatic: [No adenopathy.] - Labs CBC & Chem 7: 12/30/24 05:00 12/30/24 05:00 Labs: Abnormal Lab Results - Last 24 Hours (Table) 12/29/24 12/29/24 12/29/24 Range/Units 08:59 10:05 10:59 RBC (3.80-5.40) m/uL Hgb (11.4-16.0) gm/dL Hct (34.0-46.0) % RDW (11.5-15.5) % Plt Count (150-450) k/uL Neutrophils # (1.3-7.7) k/uL Lymphocytes # (1.0-4.8) k/uL ABG pH (7.35-7.45) ABG pCO2 (35-45) mmHg ABG HCO3 (21-25) mmol/L ABG O2 Saturation (94-97) % Hemoglobin (11.4-16.0) gm/dL Sodium (137-145) mmol/L Carbon Dioxide (22-30) mmol/L BUN (7-17) mg/dL Glucose (74-99) mg/dL POC Glucose (mg/dL) 128 H 137 H 154 H (70-110) mg/dL Calcium (8.4-10.2) mg/dL Phosphorus (2.5-4.5) mg/dL 12/29/24 12/29/24 12/29/24 Range/Units 12:04 13:04 14:08 RBC (3.80-5.40) m/uL Hgb (11.4-16.0) gm/dL Hct (34.0-46.0) % RDW (11.5-15.5) % Plt Count (150-450) k/uL Neutrophils # (1.3-7.7) k/uL Lymphocytes # (1.0-4.8) k/uL ABG pH (7.35-7.45) ABG pCO2 (35-45) mmHg ABG HCO3 (21-25) mmol/L ABG O2 Saturation (94-97) % Hemoglobin (11.4-16.0) gm/dL Sodium (137-145) mmol/L Carbon Dioxide (22-30) mmol/L BUN (7-17) mg/dL Glucose (74-99) mg/dL POC Glucose (mg/dL) 174 H 188 H 208 H (70-110) mg/dL Calcium (8.4-10.2) mg/dL Phosphorus (2.5-4.5) mg/dL 12/29/24 12/29/24 12/29/24 Range/Units 14:45 15:19 16:20 RBC (3.80-5.40) m/uL Hgb (11.4-16.0) gm/dL Hct (34.0-46.0) % RDW (11.5-15.5) % Plt Count (150-450) k/uL Neutrophils # (1.3-7.7) k/uL Lymphocytes # (1.0-4.8) k/uL ABG pH 7.48 H (7.35-7.45) ABG pCO2 26 L (35-45) mmHg ABG HCO3 19 L (21-25) mmol/L ABG O2 Saturation 98.8 H (94-97) % Hemoglobin 9.7 L (11.4-16.0) gm/dL Sodium (137-145) mmol/L Carbon Dioxide (22-30) mmol/L BUN (7-17) mg/dL Glucose (74-99) mg/dL POC Glucose (mg/dL) 186 H 173 H (70-110) mg/dL Calcium (8.4-10.2) mg/dL Phosphorus (2.5-4.5) mg/dL 12/29/24 12/29/24 12/29/24 Range/Units 17:05 18:11 20:21 RBC (3.80-5.40) m/uL Hgb (11.4-16.0) gm/dL Hct (34.0-46.0) % RDW (11.5-15.5) % Plt Count (150-450) k/uL Neutrophils # (1.3-7.7) k/uL Lymphocytes # (1.0-4.8) k/uL ABG pH (7.35-7.45) ABG pCO2 (35-45) mmHg ABG HCO3 (21-25) mmol/L ABG O2 Saturation (94-97) % Hemoglobin (11.4-16.0) gm/dL Sodium (137-145) mmol/L Carbon Dioxide (22-30) mmol/L BUN (7-17) mg/dL Glucose (74-99) mg/dL POC Glucose (mg/dL) 158 H 145 H 129 H (70-110) mg/dL Calcium (8.4-10.2) mg/dL Phosphorus (2.5-4.5) mg/dL 12/29/24 12/29/24 12/30/24 Range/Units 20:55 23:06 01:05 RBC (3.80-5.40) m/uL Hgb (11.4-16.0) gm/dL Hct (34.0-46.0) % RDW (11.5-15.5) % Plt Count (150-450) k/uL Neutrophils # (1.3-7.7) k/uL Lymphocytes # (1.0-4.8) k/uL ABG pH (7.35-7.45) ABG pCO2 (35-45) mmHg ABG HCO3 (21-25) mmol/L ABG O2 Saturation (94-97) % Hemoglobin (11.4-16.0) gm/dL Sodium (137-145) mmol/L Carbon Dioxide (22-30) mmol/L BUN (7-17) mg/dL Glucose (74-99) mg/dL POC Glucose (mg/dL) 134 H 156 H 185 H (70-110) mg/dL Calcium (8.4-10.2) mg/dL Phosphorus (2.5-4.5) mg/dL 12/30/24 12/30/24 12/30/24 Range/Units 02:09 02:58 04:15 RBC (3.80-5.40) m/uL Hgb (11.4-16.0) gm/dL Hct (34.0-46.0) % RDW (11.5-15.5) % Plt Count (150-450) k/uL Neutrophils # (1.3-7.7) k/uL Lymphocytes # (1.0-4.8) k/uL ABG pH (7.35-7.45) ABG pCO2 (35-45) mmHg ABG HCO3 (21-25) mmol/L ABG O2 Saturation (94-97) % Hemoglobin (11.4-16.0) gm/dL Sodium (137-145) mmol/L Carbon Dioxide (22-30) mmol/L BUN (7-17) mg/dL Glucose (74-99) mg/dL POC Glucose (mg/dL) 181 H 165 H 163 H (70-110) mg/dL Calcium (8.4-10.2) mg/dL Phosphorus (2.5-4.5) mg/dL 12/30/24 12/30/24 Range/Units 05:00 05:00 RBC 3.10 L (3.80-5.40) m/uL Hgb 9.2 L (11.4-16.0) gm/dL Hct 26.8 L (34.0-46.0) % RDW 15.9 H (11.5-15.5) % Plt Count 50 L (150-450) k/uL Neutrophils # 8.3 H (1.3-7.7) k/uL Lymphocytes # 0.3 L (1.0-4.8) k/uL ABG pH (7.35-7.45) ABG pCO2 (35-45) mmHg ABG HCO3 (21-25) mmol/L ABG O2 Saturation (94-97) % Hemoglobin (11.4-16.0) gm/dL Sodium 131 L (137-145) mmol/L Carbon Dioxide 20 L (22-30) mmol/L BUN 30 H (7-17) mg/dL Glucose 150 H (74-99) mg/dL POC Glucose (mg/dL) (70-110) mg/dL Calcium 8.2 L (8.4-10.2) mg/dL Phosphorus 4.6 H (2.5-4.5) mg/dL Microbiology - Last 24 Hours (Table) 12/27/24 09:02 Gram Stain - Final Sputum Sputum Culture - Final Assessment and Plan (1) Abdominal pain Current Visit: Yes Status: Acute Code(s): R10.9 - UNSPECIFIED ABDOMINAL PAIN SNOMED Code(s): 11551090 (2) Bacteremia Current Visit: Yes Status: Acute Code(s): R78.81 - BACTEREMIA SNOMED Code(s): 8997902 (3) Pancytopenia Current Visit: Yes Status: Acute Code(s): D61.818 - OTHER PANCYTOPENIA SNOMED Code(s): 649369460 (4) Perforated diverticulum Current Visit: Yes Status: Acute Priority: High Code(s): K57.80 - DVTRCLI OF INTEST, PART UNSP, W PERF AND ABSCESS W/O BLEED SNOMED Code(s): 81121912 (5) Perforation of sigmoid colon due to diverticulitis Current Visit: Yes Status: Acute Code(s): K57.20 - DVTRCLI OF LG INT W PERFORATION AND ABSCESS W/O BLEEDING SNOMED Code(s): 5302806788931914 (6) Pneumoperitoneum Current Visit: Yes Status: Acute Code(s): K66.8 - OTHER SPECIFIED DISORDERS OF PERITONEUM SNOMED Code(s): 54041777 (7) S/P colectomy Current Visit: Yes Status: Acute Code(s): Z90.49 - ACQUIRED ABSENCE OF OTHER SPECIFIED PARTS OF DIGESTIVE TRACT SNOMED Code(s): 383522584 (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 Current Visit: Yes Status: Acute Code(s): E11.59 - TYPE 2 DIABETES MELLITUS WITH OTH CIRCULATORY COMPLICATIONS SNOMED Code(s): 07210647 (9) Coronary artery 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 Current Visit: No Status: Acute Code(s): E11.59 - TYPE 2 DIABETES MELLITUS WITH OTH CIRCULATORY COMPLICATIONS; I25.10 - ATHSCL HEART DISEASE OF [place] CORONARY ARTERY W/O ANG PCTRS SNOMED Code(s): 21541351129630323 (10) Deep vein thrombosis (DVT) of lower extremity Current Visit: No Status: Acute Priority: Medium Code(s): I82.409 - ACUTE EMBOLISM AND THOMBOS UNSP DEEP VN UNSP LOWER EXTREMITY SNOMED Code(s): 009234747 (11) H/O four vessel coronary artery bypass graft Current Visit: No Status: Acute Code(s): Z95.1 - PRESENCE OF AORTOCORONARY BYPASS GRAFT SNOMED Code(s): 893486410 (12) Hypertension Current Visit: No Status: Acute Code(s): I10 - ESSENTIAL (PRIMARY) HYPERTENSION SNOMED Code(s): 03005190 (13) Multiple myeloma Current Visit: No Status: Acute Code(s): C90.00 - MULTIPLE MYELOMA NOT HAVING ACHIEVED REMISSION SNOMED Code(s): 743406115 Plan: Continue current care Anticipate patient being extubated within the next 24 hours
--- NOTE | 2024-12-30 08:07 | XR ---
EXAMINATION TYPE: XR chest 1V portable DATE OF EXAM: 12/30/2024 5:39 AM COMPARISON: 12/29/2024 CLINICAL INDICATION: Female, 79 years old with history of dyspnea, FINDINGS: Endotracheal tube has been removed. Remaining tubes and catheters remain unchanged. Basilar pleural-parenchymal opacity remains unchanged. Stable appearance of the cardio-mediastinal structures at this time. No sizable pleural effusion. IMPRESSION: 1. Stable portable chest. Clinical correlation and follow up until resolution is recommended. [facility], , 12/30/2024 8:04 AM
[2024-12-30 08:19] LABS: Glucose,Whole Blood 157 mg/dL (70-110)
[2024-12-30 09:14] LABS: Glucose,Whole Blood 145 mg/dL (70-110)
[2024-12-30 09:53] LABS: Glucose,Whole Blood 139 mg/dL (70-110)
--- NOTE | 2024-12-30 10:50 | P.PN ---
Subjective Patient is seen for follow-up for acute kidney injury. Patient is awake Started on TPN, currently running at 30 mL/h. Urine output 40 to 20 cc an hour. Serum creatinine 0.9 today and serum sodium improved to 131 Objective - Vital Signs Vital signs: Vital Signs Temp 97.7 F 12/30/24 08:00 Pulse 84 12/30/24 10:00 Resp 14 12/30/24 10:00 BP 139/67 12/30/24 10:00 Pulse Ox 99 12/30/24 10:00 FiO2 30 12/30/24 08:00 Intake & Output 12/29/24 12/30/24 12/30/24 18:59 06:59 18:59 Intake Total 5597.841 3509.723 228 Output Total 290 1475 225 Balance 1569.890 -433.277 3 Weight 86.8 kg Intake: IV 1721 244 228 0.9 @ 10 20 ACETAMINOPHEN IV (For NPO 200 100 ) 1,000 mg In Empty Bag 1 bag @ 400 mls/hr IVPB Q6HR [facility] Rx#:[id number] Mvi, Adult No.4 with Vit 363 33 K 10 ml Trace (Conc-1Ml/ Dose) 1 ml In Amino Acid 5%-D20w+Lytes*E* 1,000 ml @ 30 mls/hr IV .Q24H [facility] Rx#:[id number] Mvi, Adult No.4 with Vit 99 K 10 ml Trace (Conc-1Ml/ Dose) 1 ml Sodium Acetate 22 meq Potassium Acetate 16 meq In Amino Acid 5%- D20w+Lytes*E* 1,000 ml @ 33 mls/hr IV .Q24H [facility] Rx #:[id number] Piperacillin-Tazobactam 3 200 100 .375 gm In Sodium Chloride 0.9% 100 ml @ 25 mls/hr IVPB Q8H [facility] Rx#: [id number] Potassium Chloride 10 meq 100 In Water For Injection 1 100ml.bag @ 100 mls/hr IVPB Q1H [facility] Rx#: [id number] Sodium Chloride 0.9% 1, 825 75 000 ml @ 75 mls/hr IV . [id number] [facility] Rx#:[id number] pressure bag 33 36 9 Intake, IV Titration 138.890 797.723 Amount Insulin Regular 100 unit 59.415 17.723 In Sodium Chloride 0.9% 100 ml @ Titrate IV .Q0M [facility] Rx#:[id number] Mvi, Adult No.4 with Vit 198 K 10 ml Trace (Conc-1Ml/ Dose) 1 ml Sodium Acetate 22 meq Potassium Acetate 16 meq In Amino Acid 5%- D20w+Lytes*E* 1,000 ml @ 33 mls/hr IV .Q24H [facility] Rx #:[id number] Mvi, Adult No.4 with Vit 132 K 10 ml Trace (Conc-1Ml/ Dose) 1 ml Sodium Chloride 4Meq/ml Vial 12 meq Potassium Acetate 10 meq In Amino Acid 5%-D20w +Lytes*E* 1,000 ml @ 33 mls/hr IV .Q24H [facility] Rx#: [id number] Sodium Chloride 0.9% 1, 450 000 ml @ 75 mls/hr IV . [id number] [facility] Rx#:[id number] propofoL 1,000 mg In 79.475 Empty Bag 1 bag @ 15 MCG/ KG/MIN 5.715 mls/hr IV . [id number] [facility] Rx#:[id number] Output: Drainage 0 20 Abdomen 0 20 Urine 290 1405 225 Stool 50 Other: Voiding Method Indwelling Catheter Indwelling Catheter ABP, PAP, CO, CI - Last Documented Arterial Blood Pressure 147/52 - Exam Patient is awake, following commands Examination of the heart S1 and S2 Examination of the lungs bilateral breath sounds are heard Abdomen is soft., MILADIS drain noted colostomy noted Examination of lower extremities shows 1+ edema - Labs CBC & Chem 7: 12/30/24 05:00 12/30/24 05:00 Labs: Abnormal Lab Results - Last 24 Hours (Table) 12/29/24 12/29/24 12/29/24 Range/Units 10:59 12:04 13:04 RBC (3.80-5.40) m/uL Hgb (11.4-16.0) gm/dL Hct (34.0-46.0) % RDW (11.5-15.5) % Plt Count (150-450) k/uL Neutrophils # (1.3-7.7) k/uL Lymphocytes # (1.0-4.8) k/uL ABG pH (7.35-7.45) ABG pCO2 (35-45) mmHg ABG HCO3 (21-25) mmol/L ABG O2 Saturation (94-97) % Hemoglobin (11.4-16.0) gm/dL Sodium (137-145) mmol/L Carbon Dioxide (22-30) mmol/L BUN (7-17) mg/dL Glucose (74-99) mg/dL POC Glucose (mg/dL) 154 H 174 H 188 H (70-110) mg/dL Calcium (8.4-10.2) mg/dL Phosphorus (2.5-4.5) mg/dL 12/29/24 12/29/24 12/29/24 Range/Units 14:08 14:45 15:19 RBC (3.80-5.40) m/uL Hgb (11.4-16.0) gm/dL Hct (34.0-46.0) % RDW (11.5-15.5) % Plt Count (150-450) k/uL Neutrophils # (1.3-7.7) k/uL Lymphocytes # (1.0-4.8) k/uL ABG pH 7.48 H (7.35-7.45) ABG pCO2 26 L (35-45) mmHg ABG HCO3 19 L (21-25) mmol/L ABG O2 Saturation 98.8 H (94-97) % Hemoglobin 9.7 L (11.4-16.0) gm/dL Sodium (137-145) mmol/L Carbon Dioxide (22-30) mmol/L BUN (7-17) mg/dL Glucose (74-99) mg/dL POC Glucose (mg/dL) 208 H 186 H (70-110) mg/dL Calcium (8.4-10.2) mg/dL Phosphorus (2.5-4.5) mg/dL 12/29/24 12/29/24 12/29/24 Range/Units 16:20 17:05 18:11 RBC (3.80-5.40) m/uL Hgb (11.4-16.0) gm/dL Hct (34.0-46.0) % RDW (11.5-15.5) % Plt Count (150-450) k/uL Neutrophils # (1.3-7.7) k/uL Lymphocytes # (1.0-4.8) k/uL ABG pH (7.35-7.45) ABG pCO2 (35-45) mmHg ABG HCO3 (21-25) mmol/L ABG O2 Saturation (94-97) % Hemoglobin (11.4-16.0) gm/dL Sodium (137-145) mmol/L Carbon Dioxide (22-30) mmol/L BUN (7-17) mg/dL Glucose (74-99) mg/dL POC Glucose (mg/dL) 173 H 158 H 145 H (70-110) mg/dL Calcium (8.4-10.2) mg/dL Phosphorus (2.5-4.5) mg/dL 12/29/24 12/29/24 12/29/24 Range/Units 20:21 20:55 23:06 RBC (3.80-5.40) m/uL Hgb (11.4-16.0) gm/dL Hct (34.0-46.0) % RDW (11.5-15.5) % Plt Count (150-450) k/uL Neutrophils # (1.3-7.7) k/uL Lymphocytes # (1.0-4.8) k/uL ABG pH (7.35-7.45) ABG pCO2 (35-45) mmHg ABG HCO3 (21-25) mmol/L ABG O2 Saturation (94-97) % Hemoglobin (11.4-16.0) gm/dL Sodium (137-145) mmol/L Carbon Dioxide (22-30) mmol/L BUN (7-17) mg/dL Glucose (74-99) mg/dL POC Glucose (mg/dL) 129 H 134 H 156 H (70-110) mg/dL Calcium (8.4-10.2) mg/dL Phosphorus (2.5-4.5) mg/dL 12/30/24 12/30/24 12/30/24 Range/Units 01:05 02:09 02:58 RBC (3.80-5.40) m/uL Hgb (11.4-16.0) gm/dL Hct (34.0-46.0) % RDW (11.5-15.5) % Plt Count (150-450) k/uL Neutrophils # (1.3-7.7) k/uL Lymphocytes # (1.0-4.8) k/uL ABG pH (7.35-7.45) ABG pCO2 (35-45) mmHg ABG HCO3 (21-25) mmol/L ABG O2 Saturation (94-97) % Hemoglobin (11.4-16.0) gm/dL Sodium (137-145) mmol/L Carbon Dioxide (22-30) mmol/L BUN (7-17) mg/dL Glucose (74-99) mg/dL POC Glucose (mg/dL) 185 H 181 H 165 H (70-110) mg/dL Calcium (8.4-10.2) mg/dL Phosphorus (2.5-4.5) mg/dL 12/30/24 12/30/24 12/30/24 Range/Units 04:15 05:00 05:00 RBC 3.10 L (3.80-5.40) m/uL Hgb 9.2 L (11.4-16.0) gm/dL Hct 26.8 L (34.0-46.0) % RDW 15.9 H (11.5-15.5) % Plt Count 50 L (150-450) k/uL Neutrophils # 8.3 H (1.3-7.7) k/uL Lymphocytes # 0.3 L (1.0-4.8) k/uL ABG pH (7.35-7.45) ABG pCO2 (35-45) mmHg ABG HCO3 (21-25) mmol/L ABG O2 Saturation (94-97) % Hemoglobin (11.4-16.0) gm/dL Sodium 131 L (137-145) mmol/L Carbon Dioxide 20 L (22-30) mmol/L BUN 30 H (7-17) mg/dL Glucose 150 H (74-99) mg/dL POC Glucose (mg/dL) 163 H (70-110) mg/dL Calcium 8.2 L (8.4-10.2) mg/dL Phosphorus 4.6 H (2.5-4.5) mg/dL 12/30/24 12/30/24 12/30/24 Range/Units 08:18 09:12 09:51 RBC (3.80-5.40) m/uL Hgb (11.4-16.0) gm/dL Hct (34.0-46.0) % RDW (11.5-15.5) % Plt Count (150-450) k/uL Neutrophils # (1.3-7.7) k/uL Lymphocytes # (1.0-4.8) k/uL ABG pH (7.35-7.45) ABG pCO2 (35-45) mmHg ABG HCO3 (21-25) mmol/L ABG O2 Saturation (94-97) % Hemoglobin (11.4-16.0) gm/dL Sodium (137-145) mmol/L Carbon Dioxide (22-30) mmol/L BUN (7-17) mg/dL Glucose (74-99) mg/dL POC Glucose (mg/dL) 157 H 145 H 139 H (70-110) mg/dL Calcium (8.4-10.2) mg/dL Phosphorus (2.5-4.5) mg/dL Microbiology - Last 24 Hours (Table) 12/27/24 09:02 Gram Stain - Final Sputum Sputum Culture - Final Assessment and Plan Assessment: 1. Acute kidney injury secondary to septic ATN. Baseline creatinine near 0.8 and peaked at 1.68 this admission -0.[address] scan from December 24, 2024 showed no evidence of hydronephrosis. 2. Multiple myeloma maintained on chemotherapy. 3. Acute diverticulitis with perforation being followed by surgery. Status post sigmoid colectomy with drainage of abscess December 26, 2024. 4. Acute blood loss anemia status post blood transfusion this admission. Status post IV DDAVP. 5. Metabolic acidosis secondary to acute kidney injury and IV fluids. Status post bicarb drip. Improved. 6. Hyponatremia, appears hypervolemic with third spacing 7. E. coli bacteremia on antibiotics. Plan: Continue off of normal saline Continue with TPN Replace potassium Repeat labs in a.m.
[2024-12-30 11:10] LABS: Glucose,Whole Blood 158 mg/dL (70-110)
[2024-12-30] MEDS: FUROSEMIDE 10 MG/ML 4 ML VIAL IV STA (11:17)
--- NOTE | 2024-12-30 11:55 | P.PN ---
Subjective Progress Note Date: 12/30/24 SURGICAL PROGRESS NOTE CHIEF COMPLAINT: Perforated diverticulitis with abscess HISTORY OF PRESENT ILLNESS: Patient was extubated yesterday. Her ostomy is functioning. She had 50 mL of stool output this morning. Denies any nausea. MILADIS drain 20 mL serosanguineous output. Patient has had minimal bleeding from incision site more serosanguineous in color. Nursing staff change the dressing once during the night. Afebrile. WBC 9.3 Hgb stable at 9.7 platelets 50 Patient seen and examined with Dr. Rodriges PHYSICAL EXAM: VITAL SIGNS: Reviewed. GENERAL: Well-developed in no acute distress. ABDOMEN: Soft. Nondistended. Midline incision with small amount of serosanguineous drainage noted near the umbilicus. Ostomy with stool NEUROLOGIC: Patient is awake and alert ASSESSMENT: 1. Perforated diverticulitis with abscess 2. History of multiple myeloma PLAN: -Discontinue NG tube -Start clear liquid diet -Continue TPN for nutrition support until oral intake increases -Agree with transferring patient out of the ICU -Continue antibiotics -[place] and Tylenol added for oral pain medication -Encourage patient to increase activity level. PT OT on consult Physician Extruding Press Operator note has been reviewed by physician. Signing provider agrees with the documented findings, assessment, and plan of care. Objective - Vital Signs Vital signs: Vital Signs Temp 97.7 F 12/30/24 08:00 Pulse 80 12/30/24 11:00 Resp 15 12/30/24 11:00 BP 142/72 12/30/24 11:00 Pulse Ox 99 12/30/24 11:00 FiO2 30 12/30/24 08:00 Intake & Output 12/29/24 12/30/24 12/30/24 18:59 06:59 18:59 Intake Total 3521.497 7100.723 228 Output Total 290 1475 225 Balance 1569.890 -433.277 3 Weight 86.8 kg Intake: IV 1721 244 228 0.9 @ 10 20 ACETAMINOPHEN IV (For NPO 200 100 ) 1,000 mg In Empty Bag 1 bag @ 400 mls/hr IVPB Q6HR [facility] Rx#:[id number] Mvi, Adult No.4 with Vit 363 33 K 10 ml Trace (Conc-1Ml/ Dose) 1 ml In Amino Acid 5%-D20w+Lytes*E* 1,000 ml @ 30 mls/hr IV .Q24H [facility] Rx#:[id number] Mvi, Adult No.4 with Vit 99 K 10 ml Trace (Conc-1Ml/ Dose) 1 ml Sodium Acetate 22 meq Potassium Acetate 16 meq In Amino Acid 5%- D20w+Lytes*E* 1,000 ml @ 33 mls/hr IV .Q24H [facility] Rx #:[id number] Piperacillin-Tazobactam 3 200 100 .375 gm In Sodium Chloride 0.9% 100 ml @ 25 mls/hr IVPB Q8H [facility] Rx#: [id number] Potassium Chloride 10 meq 100 In Water For Injection 1 100ml.bag @ 100 mls/hr IVPB Q1H [facility] Rx#: [id number] Sodium Chloride 0.9% 1, 825 75 000 ml @ 75 mls/hr IV . [id number] [facility] Rx#:[id number] pressure bag 33 36 9 Intake, IV Titration 138.890 797.723 Amount Insulin Regular 100 unit 59.415 17.723 In Sodium Chloride 0.9% 100 ml @ Titrate IV .Q0M [facility] Rx#:[id number] Mvi, Adult No.4 with Vit 198 K 10 ml Trace (Conc-1Ml/ Dose) 1 ml Sodium Acetate 22 meq Potassium Acetate 16 meq In Amino Acid 5%- D20w+Lytes*E* 1,000 ml @ 33 mls/hr IV .Q24H [facility] Rx #:[id number] Mvi, Adult No.4 with Vit 132 K 10 ml Trace (Conc-1Ml/ Dose) 1 ml Sodium Chloride 4Meq/ml Vial 12 meq Potassium Acetate 10 meq In Amino Acid 5%-D20w +Lytes*E* 1,000 ml @ 33 mls/hr IV .Q24H [facility] Rx#: [id number] Sodium Chloride 0.9% 1, 450 000 ml @ 75 mls/hr IV . [id number] [facility] Rx#:[id number] propofoL 1,000 mg In 79.475 Empty Bag 1 bag @ 15 MCG/ KG/MIN 5.715 mls/hr IV . [id number] [facility] Rx#:[id number] Output: Drainage 0 20 Abdomen 0 20 Urine 290 1405 225 Stool 50 Other: Voiding Method Indwelling Catheter Indwelling Catheter ABP, PAP, CO, CI - Last Documented Arterial Blood Pressure 139/52 - Labs CBC & Chem 7: 12/30/24 05:00 12/30/24 05:00 Labs: Abnormal Lab Results - Last 24 Hours (Table) 12/29/24 12/29/24 12/29/24 Range/Units 12:04 13:04 14:08 RBC (3.80-5.40) m/uL Hgb (11.4-16.0) gm/dL Hct (34.0-46.0) % RDW (11.5-15.5) % Plt Count (150-450) k/uL Neutrophils # (1.3-7.7) k/uL Lymphocytes # (1.0-4.8) k/uL ABG pH (7.35-7.45) ABG pCO2 (35-45) mmHg ABG HCO3 (21-25) mmol/L ABG O2 Saturation (94-97) % Hemoglobin (11.4-16.0) gm/dL Sodium (137-145) mmol/L Carbon Dioxide (22-30) mmol/L BUN (7-17) mg/dL Glucose (74-99) mg/dL POC Glucose (mg/dL) 174 H 188 H 208 H (70-110) mg/dL Calcium (8.4-10.2) mg/dL Phosphorus (2.5-4.5) mg/dL 12/29/24 12/29/24 12/29/24 Range/Units 14:45 15:19 16:20 RBC (3.80-5.40) m/uL Hgb (11.4-16.0) gm/dL Hct (34.0-46.0) % RDW (11.5-15.5) % Plt Count (150-450) k/uL Neutrophils # (1.3-7.7) k/uL Lymphocytes # (1.0-4.8) k/uL ABG pH 7.48 H (7.35-7.45) ABG pCO2 26 L (35-45) mmHg ABG HCO3 19 L (21-25) mmol/L ABG O2 Saturation 98.8 H (94-97) % Hemoglobin 9.7 L (11.4-16.0) gm/dL Sodium (137-145) mmol/L Carbon Dioxide (22-30) mmol/L BUN (7-17) mg/dL Glucose (74-99) mg/dL POC Glucose (mg/dL) 186 H 173 H (70-110) mg/dL Calcium (8.4-10.2) mg/dL Phosphorus (2.5-4.5) mg/dL 12/29/24 12/29/24 12/29/24 Range/Units 17:05 18:11 20:21 RBC (3.80-5.40) m/uL Hgb (11.4-16.0) gm/dL Hct (34.0-46.0) % RDW (11.5-15.5) % Plt Count (150-450) k/uL Neutrophils # (1.3-7.7) k/uL Lymphocytes # (1.0-4.8) k/uL ABG pH (7.35-7.45) ABG pCO2 (35-45) mmHg ABG HCO3 (21-25) mmol/L ABG O2 Saturation (94-97) % Hemoglobin (11.4-16.0) gm/dL Sodium (137-145) mmol/L Carbon Dioxide (22-30) mmol/L BUN (7-17) mg/dL Glucose (74-99) mg/dL POC Glucose (mg/dL) 158 H 145 H 129 H (70-110) mg/dL Calcium (8.4-10.2) mg/dL Phosphorus (2.5-4.5) mg/dL 12/29/24 12/29/24 12/30/24 Range/Units 20:55 23:06 01:05 RBC (3.80-5.40) m/uL Hgb (11.4-16.0) gm/dL Hct (34.0-46.0) % RDW (11.5-15.5) % Plt Count (150-450) k/uL Neutrophils # (1.3-7.7) k/uL Lymphocytes # (1.0-4.8) k/uL ABG pH (7.35-7.45) ABG pCO2 (35-45) mmHg ABG HCO3 (21-25) mmol/L ABG O2 Saturation (94-97) % Hemoglobin (11.4-16.0) gm/dL Sodium (137-145) mmol/L Carbon Dioxide (22-30) mmol/L BUN (7-17) mg/dL Glucose (74-99) mg/dL POC Glucose (mg/dL) 134 H 156 H 185 H (70-110) mg/dL Calcium (8.4-10.2) mg/dL Phosphorus (2.5-4.5) mg/dL 12/30/24 12/30/24 12/30/24 Range/Units 02:09 02:58 04:15 RBC (3.80-5.40) m/uL Hgb (11.4-16.0) gm/dL Hct (34.0-46.0) % RDW (11.5-15.5) % Plt Count (150-450) k/uL Neutrophils # (1.3-7.7) k/uL Lymphocytes # (1.0-4.8) k/uL ABG pH (7.35-7.45) ABG pCO2 (35-45) mmHg ABG HCO3 (21-25) mmol/L ABG O2 Saturation (94-97) % Hemoglobin (11.4-16.0) gm/dL Sodium (137-145) mmol/L Carbon Dioxide (22-30) mmol/L BUN (7-17) mg/dL Glucose (74-99) mg/dL POC Glucose (mg/dL) 181 H 165 H 163 H (70-110) mg/dL Calcium (8.4-10.2) mg/dL Phosphorus (2.5-4.5) mg/dL 12/30/24 12/30/24 12/30/24 Range/Units 05:00 05:00 08:18 RBC 3.10 L (3.80-5.40) m/uL Hgb 9.2 L (11.4-16.0) gm/dL Hct 26.8 L (34.0-46.0) % RDW 15.9 H (11.5-15.5) % Plt Count 50 L (150-450) k/uL Neutrophils # 8.3 H (1.3-7.7) k/uL Lymphocytes # 0.3 L (1.0-4.8) k/uL ABG pH (7.35-7.45) ABG pCO2 (35-45) mmHg ABG HCO3 (21-25) mmol/L ABG O2 Saturation (94-97) % Hemoglobin (11.4-16.0) gm/dL Sodium 131 L (137-145) mmol/L Carbon Dioxide 20 L (22-30) mmol/L BUN 30 H (7-17) mg/dL Glucose 150 H (74-99) mg/dL POC Glucose (mg/dL) 157 H (70-110) mg/dL Calcium 8.2 L (8.4-10.2) mg/dL Phosphorus 4.6 H (2.5-4.5) mg/dL 12/30/24 12/30/24 12/30/24 Range/Units 09:12 09:51 11:08 RBC (3.80-5.40) m/uL Hgb (11.4-16.0) gm/dL Hct (34.0-46.0) % RDW (11.5-15.5) % Plt Count (150-450) k/uL Neutrophils # (1.3-7.7) k/uL Lymphocytes # (1.0-4.8) k/uL ABG pH (7.35-7.45) ABG pCO2 (35-45) mmHg ABG HCO3 (21-25) mmol/L ABG O2 Saturation (94-97) % Hemoglobin (11.4-16.0) gm/dL Sodium (137-145) mmol/L Carbon Dioxide (22-30) mmol/L BUN (7-17) mg/dL Glucose (74-99) mg/dL POC Glucose (mg/dL) 145 H 139 H 158 H (70-110) mg/dL Calcium (8.4-10.2) mg/dL Phosphorus (2.5-4.5) mg/dL Microbiology - Last 24 Hours (Table) 12/27/24 09:02 Gram Stain - Final Sputum Sputum Culture - Final
[2024-12-30] MEDS ORDERED: HYDROcodone/APAP 5-325MG 1 EACH TAB PO PRN (12:24)
[2024-12-30 12:53] LABS: Glucose,Whole Blood 231 mg/dL (70-110)
[2024-12-30] MEDS: INSULIN LISPRO (HumaLOG) 100 UNIT/ML 10 mL VL SQ SCH (13:13)
--- NOTE | 2024-12-30 13:54 | P.PN ---
Subjective Progress Note Date: 12/30/24 Progress Note Date: 12/28/24 Principal diagnosis: . Perforated diverticulum , complicated by multiple myeloma, still intubated Status post resected bowel secondary to perforated diverticulum postop day 3 patient awake with limited responses 12/30/2024 status post sigmoid colectomy, drainage of interloop abscess, proximal laminectomy on 12/26/2024 with right femoral IVC placed on 12/28/2024. maintained on TPN. Sodium improving, 131, bicarb 20, BUN 30, creatinine 0.96. Afebrile, Tmax 98, normal WBC, continues on Zosyn. Extubated yesterday, maintaining O2 sats in the high 90s on BiPAP 30% FiO2. Insulin drip transition to sliding scale with long-acting insulin, blood sugars controlled. Objective - Vital Signs Vital signs: Vital Signs Temp 97.7 F 12/30/24 08:00 Pulse 84 12/30/24 10:00 Resp 14 12/30/24 10:00 BP 139/67 12/30/24 10:00 Pulse Ox 99 12/30/24 10:00 FiO2 30 12/30/24 08:00 Intake & Output 12/29/24 12/30/24 12/30/24 18:59 06:59 18:59 Intake Total 8733.200 1562.723 228 Output Total 290 1475 225 Balance 1569.890 -433.277 3 Weight 86.8 kg Intake: IV 1721 244 228 0.9 @ 10 20 ACETAMINOPHEN IV (For NPO 200 100 ) 1,000 mg In Empty Bag 1 bag @ 400 mls/hr IVPB Q6HR [facility] Rx#:[id number] Mvi, Adult No.4 with Vit 363 33 K 10 ml Trace (Conc-1Ml/ Dose) 1 ml In Amino Acid 5%-D20w+Lytes*E* 1,000 ml @ 30 mls/hr IV .Q24H [facility] Rx#:[id number] Mvi, Adult No.4 with Vit 99 K 10 ml Trace (Conc-1Ml/ Dose) 1 ml Sodium Acetate 22 meq Potassium Acetate 16 meq In Amino Acid 5%- D20w+Lytes*E* 1,000 ml @ 33 mls/hr IV .Q24H [facility] Rx #:[id number] Piperacillin-Tazobactam 3 200 100 .375 gm In Sodium Chloride 0.9% 100 ml @ 25 mls/hr IVPB Q8H [facility] Rx#: [id number] Potassium Chloride 10 meq 100 In Water For Injection 1 100ml.bag @ 100 mls/hr IVPB Q1H [facility] Rx#: [id number] Sodium Chloride 0.9% 1, 825 75 000 ml @ 75 mls/hr IV . [id number] [facility] Rx#:[id number] pressure bag 33 36 9 Intake, IV Titration 138.890 797.723 Amount Insulin Regular 100 unit 59.415 17.723 In Sodium Chloride 0.9% 100 ml @ Titrate IV .Q0M [facility] Rx#:[id number] Mvi, Adult No.4 with Vit 198 K 10 ml Trace (Conc-1Ml/ Dose) 1 ml Sodium Acetate 22 meq Potassium Acetate 16 meq In Amino Acid 5%- D20w+Lytes*E* 1,000 ml @ 33 mls/hr IV .Q24H [facility] Rx #:[id number] Mvi, Adult No.4 with Vit 132 K 10 ml Trace (Conc-1Ml/ Dose) 1 ml Sodium Chloride 4Meq/ml Vial 12 meq Potassium Acetate 10 meq In Amino Acid 5%-D20w +Lytes*E* 1,000 ml @ 33 mls/hr IV .Q24H [facility] Rx#: [id number] Sodium Chloride 0.9% 1, 450 000 ml @ 75 mls/hr IV . [id number] [facility] Rx#:[id number] propofoL 1,000 mg In 79.475 Empty Bag 1 bag @ 15 MCG/ KG/MIN 5.715 mls/hr IV . [id number] [facility] Rx#:[id number] Output: Drainage 0 20 Abdomen 0 20 Urine 290 1405 225 Stool 50 Other: Voiding Method Indwelling Catheter Indwelling Catheter ABP, PAP, CO, CI - Last Documented Arterial Blood Pressure 147/52 - Exam General: [Patient awake and oriented x 3, sitting up in bed, on BiPAP, minimally conversing. HEENT: [PERRL. EOMI. No pharyngeal erythema or exudate.] Neck: Supple, no JVD Cardiac: [Heart regular in rate and rhythm. No S3. No S4. No clicks, rubs. No murmur.] Lungs: [Clear to auscultation bilaterally.] Abdomen: Soft, functioning colostomy/MILADIS drain with serosanguineous drainage. bowel sounds presnt and normoactive in all 4 quadrants.] Extremes: Positive edema ,no cyanosis no claudication normal pulses] Skin: [No rash.] Neurologic: Limited exam, follows simple commands - Labs CBC & Chem 7: 12/30/24 05:00 12/31/24 05:47 Labs: Abnormal Lab Results - Last 24 Hours (Table) 12/29/24 12/29/24 12/29/24 Range/Units 12:04 13:04 14:08 RBC (3.80-5.40) m/uL Hgb (11.4-16.0) gm/dL Hct (34.0-46.0) % RDW (11.5-15.5) % Plt Count (150-450) k/uL Neutrophils # (1.3-7.7) k/uL Lymphocytes # (1.0-4.8) k/uL ABG pH (7.35-7.45) ABG pCO2 (35-45) mmHg ABG HCO3 (21-25) mmol/L ABG O2 Saturation (94-97) % Hemoglobin (11.4-16.0) gm/dL Sodium (137-145) mmol/L Carbon Dioxide (22-30) mmol/L BUN (7-17) mg/dL Glucose (74-99) mg/dL POC Glucose (mg/dL) 174 H 188 H 208 H (70-110) mg/dL Calcium (8.4-10.2) mg/dL Phosphorus (2.5-4.5) mg/dL 12/29/24 12/29/24 12/29/24 Range/Units 14:45 15:19 16:20 RBC (3.80-5.40) m/uL Hgb (11.4-16.0) gm/dL Hct (34.0-46.0) % RDW (11.5-15.5) % Plt Count (150-450) k/uL Neutrophils # (1.3-7.7) k/uL Lymphocytes # (1.0-4.8) k/uL ABG pH 7.48 H (7.35-7.45) ABG pCO2 26 L (35-45) mmHg ABG HCO3 19 L (21-25) mmol/L ABG O2 Saturation 98.8 H (94-97) % Hemoglobin 9.7 L (11.4-16.0) gm/dL Sodium (137-145) mmol/L Carbon Dioxide (22-30) mmol/L BUN (7-17) mg/dL Glucose (74-99) mg/dL POC Glucose (mg/dL) 186 H 173 H (70-110) mg/dL Calcium (8.4-10.2) mg/dL Phosphorus (2.5-4.5) mg/dL 12/29/24 12/29/24 12/29/24 Range/Units 17:05 18:11 20:21 RBC (3.80-5.40) m/uL Hgb (11.4-16.0) gm/dL Hct (34.0-46.0) % RDW (11.5-15.5) % Plt Count (150-450) k/uL Neutrophils # (1.3-7.7) k/uL Lymphocytes # (1.0-4.8) k/uL ABG pH (7.35-7.45) ABG pCO2 (35-45) mmHg ABG HCO3 (21-25) mmol/L ABG O2 Saturation (94-97) % Hemoglobin (11.4-16.0) gm/dL Sodium (137-145) mmol/L Carbon Dioxide (22-30) mmol/L BUN (7-17) mg/dL Glucose (74-99) mg/dL POC Glucose (mg/dL) 158 H 145 H 129 H (70-110) mg/dL Calcium (8.4-10.2) mg/dL Phosphorus (2.5-4.5) mg/dL 12/29/24 12/29/24 12/30/24 Range/Units 20:55 23:06 01:05 RBC (3.80-5.40) m/uL Hgb (11.4-16.0) gm/dL Hct (34.0-46.0) % RDW (11.5-15.5) % Plt Count (150-450) k/uL Neutrophils # (1.3-7.7) k/uL Lymphocytes # (1.0-4.8) k/uL ABG pH (7.35-7.45) ABG pCO2 (35-45) mmHg ABG HCO3 (21-25) mmol/L ABG O2 Saturation (94-97) % Hemoglobin (11.4-16.0) gm/dL Sodium (137-145) mmol/L Carbon Dioxide (22-30) mmol/L BUN (7-17) mg/dL Glucose (74-99) mg/dL POC Glucose (mg/dL) 134 H 156 H 185 H (70-110) mg/dL Calcium (8.4-10.2) mg/dL Phosphorus (2.5-4.5) mg/dL 12/30/24 12/30/24 12/30/24 Range/Units 02:09 02:58 04:15 RBC (3.80-5.40) m/uL Hgb (11.4-16.0) gm/dL Hct (34.0-46.0) % RDW (11.5-15.5) % Plt Count (150-450) k/uL Neutrophils # (1.3-7.7) k/uL Lymphocytes # (1.0-4.8) k/uL ABG pH (7.35-7.45) ABG pCO2 (35-45) mmHg ABG HCO3 (21-25) mmol/L ABG O2 Saturation (94-97) % Hemoglobin (11.4-16.0) gm/dL Sodium (137-145) mmol/L Carbon Dioxide (22-30) mmol/L BUN (7-17) mg/dL Glucose (74-99) mg/dL POC Glucose (mg/dL) 181 H 165 H 163 H (70-110) mg/dL Calcium (8.4-10.2) mg/dL Phosphorus (2.5-4.5) mg/dL 12/30/24 12/30/24 12/30/24 Range/Units 05:00 05:00 08:18 RBC 3.10 L (3.80-5.40) m/uL Hgb 9.2 L (11.4-16.0) gm/dL Hct 26.8 L (34.0-46.0) % RDW 15.9 H (11.5-15.5) % Plt Count 50 L (150-450) k/uL Neutrophils # 8.3 H (1.3-7.7) k/uL Lymphocytes # 0.3 L (1.0-4.8) k/uL ABG pH (7.35-7.45) ABG pCO2 (35-45) mmHg ABG HCO3 (21-25) mmol/L ABG O2 Saturation (94-97) % Hemoglobin (11.4-16.0) gm/dL Sodium 131 L (137-145) mmol/L Carbon Dioxide 20 L (22-30) mmol/L BUN 30 H (7-17) mg/dL Glucose 150 H (74-99) mg/dL POC Glucose (mg/dL) 157 H (70-110) mg/dL Calcium 8.2 L (8.4-10.2) mg/dL Phosphorus 4.6 H (2.5-4.5) mg/dL 12/30/24 12/30/24 12/30/24 Range/Units 09:12 09:51 11:08 RBC (3.80-5.40) m/uL Hgb (11.4-16.0) gm/dL Hct (34.0-46.0) % RDW (11.5-15.5) % Plt Count (150-450) k/uL Neutrophils # (1.3-7.7) k/uL Lymphocytes # (1.0-4.8) k/uL ABG pH (7.35-7.45) ABG pCO2 (35-45) mmHg ABG HCO3 (21-25) mmol/L ABG O2 Saturation (94-97) % Hemoglobin (11.4-16.0) gm/dL Sodium (137-145) mmol/L Carbon Dioxide (22-30) mmol/L BUN (7-17) mg/dL Glucose (74-99) mg/dL POC Glucose (mg/dL) 145 H 139 H 158 H (70-110) mg/dL Calcium (8.4-10.2) mg/dL Phosphorus (2.5-4.5) mg/dL Microbiology - Last 24 Hours (Table) 12/27/24 09:02 Gram Stain - Final Sputum Sputum Culture - Final Assessment and Plan Assessment: (1) Abdominal pain Current Visit: Yes Status: Acute Code(s): R10.9 - UNSPECIFIED ABDOMINAL PAIN SNOMED Code(s): 86561990 (2) Bacteremia Current Visit: Yes Status: Acute Code(s): R78.81 - BACTEREMIA SNOMED Code(s): 2142622 (3) Pancytopenia Current Visit: Yes Status: Acute Code(s): D61.818 - OTHER PANCYTOPENIA SNOMED Code(s): 278309773 (4) Perforated diverticulum Current Visit: Yes Status: Acute Priority: High Code(s): K57.80 - DVTRCLI OF INTEST, PART UNSP, W PERF AND ABSCESS W/O BLEED SNOMED Code(s): 28801853 (5) Perforation of sigmoid colon due to diverticulitis, status post sigmoid colectomy, drainage of interloop abscess, proximal laminectomy on 12/26/2024 with right femoral IVC placed on 12/28/2024 Current Visit: Yes Status: Acute Code(s): K57.20 - DVTRCLI OF LG INT W PERFORATION AND ABSCESS W/O BLEEDING SNOMED Code(s): 7761491547779887 (6) Pneumoperitoneum Current Visit: Yes Status: Acute Code(s): K66.8 - OTHER SPECIFIED DISORDERS OF PERITONEUM SNOMED Code(s): 69509586 (7) S/P colectomy Current Visit: Yes Status: Acute Code(s): Z90.49 - ACQUIRED ABSENCE OF OTHER SPECIFIED PARTS OF DIGESTIVE TRACT SNOMED Code(s): 281136309 (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 Current Visit: Yes Status: Acute Code(s): E11.59 - TYPE 2 DIABETES MELLITUS WITH OTH CIRCULATORY COMPLICATIONS SNOMED Code(s): 67829987 (9) Coronary artery 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 Current Visit: No Status: Acute Code(s): E11.59 - TYPE 2 DIABETES MELLITUS WITH OTH CIRCULATORY COMPLICATIONS; I25.10 - ATHSCL HEART DISEASE OF [place] CORONARY ARTERY W/O ANG PCTRS SNOMED Code(s): 54804086044224311 (10) Deep vein thrombosis (DVT) of lower extremity Current Visit: No Status: Acute Priority: Medium Code(s): I82.409 - ACUTE EMBOLISM AND THOMBOS UNSP DEEP VN UNSP LOWER EXTREMITY SNOMED Code(s): 652623151 (11) H/O four vessel coronary artery bypass graft Current Visit: No Status: Acute Code(s): Z95.1 - PRESENCE OF AORTOCORONARY BYPASS GRAFT SNOMED Code(s): 375653838 (12) Hypertension Current Visit: No Status: Acute Code(s): I10 - ESSENTIAL (PRIMARY) HYPERTENSION SNOMED Code(s): 59846892 (13) Multiple myeloma Current Visit: No Status: Acute Code(s): C90.00 - MULTIPLE MYELOMA NOT HAVI NG ACHIEVED REMISSION SNOMED Code(s): 100937132 Plan: Continue on current medication regimen ,monitoring and symptomatic treatment. TPN. antibiotics as per infectious disease. Patient has been downgraded to MedSurg with telemetry as per production lapping machine operator. prognosis guarded given multiple complex medical issues. Continue on Lantus and NovoLog sliding scale with close monitoring of Accu-Cheks. Patient has IVC filter, aspirin and Eliquis on hold-resume as per hematology. Pain management. PT/OT. Anticipate subacute rehab at discharge. The impression and plan of care has been dictated as directed. : I performed a history and examination of this patient, discussed the same with the dictator. I agree with the dictator's note ,documented as a scribe. Any additional findings or plans will be noted.
--- NOTE | 2024-12-30 14:02 | P.PN ---
Subjective Progress Note Date: 12/30/24 Principal diagnosis: Acute hypoxic respiratory failure secondary to septic shock with gram-negative bacteremia and sigmoid diverticulitis with pneumoperitoneum and intra-abdominal abscess. This is a 79-year-old female patient with known history of coronary artery disease and previous bypass surgery and known history of diabetes mellitus type 2 and multiple myeloma and the patient was diagnosed having multiple myeloma back in May 2024 and the patient had significant back pain with pathologic bone marrow infiltration throughout the lumbar spine and pelvic area with a pat hologic fracture of the L2 vertebral body and osseous extension of the tumor causing left neural foraminal narrowing at the level of L1-L2 and L2-L3. The patient was started on treatment with palliative radiation therapy and following that she was started on RVD treatment and she completed cycle 2 on 12/24/2024. Subsequently, the patient gets hospitalized for an extensive left lower extremity DVT involving a clot extending from the left iliac to the popliteal vein and the patient was started on anticoagulation with Eliquis. She was discharged to be readmitted for abdominal pain and this was assumed to be related to constipation. She was discharged to be readmitted for ongoing abdominal pain and the patient was diagnosed having acute diverticulitis. Yesterday, the patient was taken to the operating room as the follow-up CAT scan of the abdomen showed a complicated diverticulitis of the sigmoid colon with perforation and pneumoperitoneum. There was 8 cm gas/fluid collection consiste nt with an abscess. She also had cholelithiasis and diffuse anasarca. In the operating room, the patient was found to have an abdominal abscess that was drained. The patient had sigmoid colectomy and diverting colostomy. Postop, the patient was kept intubated and placed on the mechanical ventilator and she was transferred to the ICU. Noted her anticoagulation is currently on hold and she is not showing any signs of bleeding. He is currently off anticoagulants. Vascular surgery has seen the patient and patient is being contemplated for IVC filter placement. Platelet counts are also low. This morning, she is on propofol at rate of 30, she is on assist-control mode at rate of 16, tidal volume of 350, FiO2 40% with a PEEP of 5. Blood gas showed a pH of 7.48 with a pCO2 of 30 and pO2 175. NG tube output is minimal and fluid balance is +2.7 L of the patient received several fluid boluses yesterday. She remains on Alvin- Synephrine at 1.3 mcg. Producing urine output. White cell count is 14.7, hemoglobin is 8.7 and platelet count is at 73. The non-anion gap metabolic acidosis is improved and the patient serum bicarb is up to 22. Sodium levels at 127. Potassium is at 4.2. LFTs are normal. Blood sugar is at 363. Chest x- ray showed atelectatic changes lung base bilaterally. Orotracheal tube is in good location. Postthoracotomy changes related to previous heart surgery and some pulm vascular congestion is also present. The patient is currently on IV Zosyn. She will be started on TPN for nutritional support within the next 24 to 48 hours. Blood cultures positive for E. coli. Patient was seen today on 12/28/2024, patient remains in the ICU, she is on mechanical ventilation, and the patient just came back from IVC filter placement by vascular surgery. Patient is on assist-control rate of 16 tidal volume 350 FiO2 35% and PEEP of 5 ABG showed a pO2 of 150 pCO2 33 pH of 7.45 hence patient was transitioned to assist-control rate of 12 tidal volume 400 FiO2 30% and PEEP of 5 patient is also receiving a unit of packed RBCs for hemoglobin of 6.7. Requiring multiple drips including norepinephrine at 0.02 mcg/kg/min she is on TPN at 30 cc/h propofol 40 mg/kg/min and amiodarone 0.5 mg/min. Patient is also receiving insulin at 11.1 units/h. Her Solu-Cortef dose was cut down and the patient remains empirically on Zosyn. Today is postoperative day #2, patient is status post colectomy with ostomy and MILADIS drain placement. Again her presentation was mostly a presentation of abdominal sepsis. Chest x-ray today showed mostly bibasilar atelectasis., No evidence of pulmonary edema., And I doubt pneumonia. WBC count today 13.2 hemoglobin 6.7 platelets are 47,000's. Sodium is 128 potassium 2.9 chloride 98 BUN 31 creatinine 1.01 patient has received a total of 3 units of packed RBCs since admission. Blood cultures are positive for E. coli. Sensitive to Zosyn Seen today on 12/29/2024, remains in the ICU, intubated and mechanically ventilated, on assist-control mode of mechanical ventilation, rate 12 tidal volume 400 FiO2 30% PEEP of 5 ABG showed a pO2 of 114 pCO2 3 0 pH of 7.44 patient is requiring propofol at 45 mcg/kg/min she is not requiring any pressors today, patient is on TPN at 33 cc/h and IV fluid 0.9 normal saline at 75 cc/h. Her surgical site seems to be intact, ostomy seems to be pink, minimal bloody drainage into the ostomy bag. Patient is sedated, however I plan to discontinue propofol today and give the patient a weaning trial on Precedex. Her WBC count is 9.2 hemoglobin 8.7. Basic metabolic profile is relatively normal except for sodium of 128 renal profile is normal, chest x-ray showed mostly bibasilar atelectasis, no clear-cut evidence of infiltrate. Patient was seen today on 12/30/2024, patient remains in the ICU, however the patient was extubated yesterday, and extubation was successful. Patient is now on 2 L nasal cannula, she was initially extubated to BiPAP 12/5/35%, patient is awake, alert oriented x 3, does not seem to be in any distress, remains on TPN she is also on lipids. Her ostomy seems to be functioning quite well, her nasogastric tube was removed, my plan is to transfer the patient today to regular medical floor/MedSurg. WBC count today is 9.3 hemoglobin 9.2 platelets remain low at 50,000 but improving, basic metabolic profile is normal BUN is 30 creatinine 0.96. Patient remains on hydrocortisone 50 mg IV push every 12 hours, remains on Dilaudid as needed, patient is also on Zosyn and on Protonix. Objective - Vital Signs Vital signs: Vital Signs Temp 97.7 F 12/30/24 08:00 Pulse 80 12/30/24 13:00 Resp 14 12/30/24 13:00 BP 142/72 12/30/24 11:00 Pulse Ox 99 12/30/24 11:00 FiO2 30 12/30/24 08:00 Intake & Output 12/29/24 12/30/24 12/30/24 18:59 06:59 18:59 Intake Total 4815.981 8553.723 228 Output Total 290 1475 225 Balance 1569.890 -433.277 3 Weight 86.8 kg Intake: IV 1721 244 228 0.9 @ 10 20 ACETAMINOPHEN IV (For NPO 200 100 ) 1,000 mg In Empty Bag 1 bag @ 400 mls/hr IVPB Q6HR [facility] Rx#:[id number] Mvi, Adult No.4 with Vit 363 33 K 10 ml Trace (Conc-1Ml/ Dose) 1 ml In Amino Acid 5%-D20w+Lytes*E* 1,000 ml @ 30 mls/hr IV .Q24H [facility] Rx#:[id number] Mvi, Adult No.4 with Vit 99 K 10 ml Trace (Conc-1Ml/ Dose) 1 ml Sodium Acetate 22 meq Potassium Acetate 16 meq In Amino Acid 5%- D20w+Lytes*E* 1,000 ml @ 33 mls/hr IV .Q24H [facility] Rx #:[id number] Piperacillin-Tazobactam 3 200 100 .375 gm In Sodium Chloride 0.9% 100 ml @ 25 mls/hr IVPB Q8H [facility] Rx#: [id number] Potassium Chloride 10 meq 100 In Water For Injection 1 100ml.bag @ 100 mls/hr IVPB Q1H [facility] Rx#: [id number] Sodium Chloride 0.9% 1, 825 75 000 ml @ 75 mls/hr IV . [id number] [facility] Rx#:[id number] pressure bag 33 36 9 Intake, IV Titration 138.890 797.723 Amount Insulin Regular 100 unit 59.415 17.723 In Sodium Chloride 0.9% 100 ml @ Titrate IV .Q0M [facility] Rx#:[id number] Mvi, Adult No.4 with Vit 198 K 10 ml Trace (Conc-1Ml/ Dose) 1 ml Sodium Acetate 22 meq Potassium Acetate 16 meq In Amino Acid 5%- D20w+Lytes*E* 1,000 ml @ 33 mls/hr IV .Q24H [facility] Rx #:[id number] Mvi, Adult No.4 with Vit 132 K 10 ml Trace (Conc-1Ml/ Dose) 1 ml Sodium Chloride 4Meq/ml Vial 12 meq Potassium Acetate 10 meq In Amino Acid 5%-D20w +Lytes*E* 1,000 ml @ 33 mls/hr IV .Q24H [facility] Rx#: [id number] Sodium Chloride 0.9% 1, 450 000 ml @ 75 mls/hr IV . [id number] [facility] Rx#:[id number] propofoL 1,000 mg In 79.475 Empty Bag 1 bag @ 15 MCG/ KG/MIN 5.715 mls/hr IV . [id number] [facility] Rx#:[id number] Output: Drainage 0 20 Abdomen 0 20 Urine 290 1405 225 Stool 50 Other: Voiding Method Indwelling Catheter Indwelling Catheter ABP, PAP, CO, CI - Last Documented Arterial Blood Pressure 139/52 - Exam General: Revealed a 79-year-old female on 2 L nasal cannula in no distress Head: Atraumatic normocephalic EENT: PERRLA, EOMI, nonicteric, no neck masses, Neck is supple, no neck masses, no JVD, no stridor, no thyromegaly Lungs diminished breath sounds at the bases no rhonchi no wheezes Cardiac: Distant S1-S2, no S3 gallop, no murmur Abdominal: Postsurgical changes and the patient has a colostomy. Colostomy is functioning fine. Extremities: No clubbing edema or cyanosis. Skin: No rashes Neurologically, alert and oriented x 3 no gross focal deficit Psychiatric: Normal mood, affect and no mental status examination - Labs CBC & Chem 7: 12/30/24 05:00 12/30/24 05:00 Labs: Abnormal Lab Results - Last 24 Hours (Table) 12/29/24 12/29/24 12/29/24 Range/Units 14:08 14:45 15:19 RBC (3.80-5.40) m/uL Hgb (11.4-16.0) gm/dL Hct (34.0-46.0) % RDW (11.5-15.5) % Plt Count (150-450) k/uL Neutrophils # (1.3-7.7) k/uL Lymphocytes # (1.0-4.8) k/uL ABG pH 7.48 H (7.35-7.45) ABG pCO2 26 L (35-45) mmHg ABG HCO3 19 L (21-25) mmol/L ABG O2 Saturation 98.8 H (94-97) % Hemoglobin 9.7 L (11.4-16.0) gm/dL Sodium (137-145) mmol/L Carbon Dioxide (22-30) mmol/L BUN (7-17) mg/dL Glucose (74-99) mg/dL POC Glucose (mg/dL) 208 H 186 H (70-110) mg/dL Calcium (8.4-10.2) mg/dL Phosphorus (2.5-4.5) mg/dL 12/29/24 12/29/24 12/29/24 Range/Units 16:20 17:05 18:11 RBC (3.80-5.40) m/uL Hgb (11.4-16.0) gm/dL Hct (34.0-46.0) % RDW (11.5-15.5) % Plt Count (150-450) k/uL Neutrophils # (1.3-7.7) k/uL Lymphocytes # (1.0-4.8) k/uL ABG pH (7.35-7.45) ABG pCO2 (35-45) mmHg ABG HCO3 (21-25) mmol/L ABG O2 Saturation (94-97) % Hemoglobin (11.4-16.0) gm/dL Sodium (137-145) mmol/L Carbon Dioxide (22-30) mmol/L BUN (7-17) mg/dL Glucose (74-99) mg/dL POC Glucose (mg/dL) 173 H 158 H 145 H (70-110) mg/dL Calcium (8.4-10.2) mg/dL Phosphorus (2.5-4.5) mg/dL 12/29/24 12/29/24 12/29/24 Range/Units 20:21 20:55 23:06 RBC (3.80-5.40) m/uL Hgb (11.4-16.0) gm/dL Hct (34.0-46.0) % RDW (11.5-15.5) % Plt Count (150-450) k/uL Neutrophils # (1.3-7.7) k/uL Lymphocytes # (1.0-4.8) k/uL ABG pH (7.35-7.45) ABG pCO2 (35-45) mmHg ABG HCO3 (21-25) mmol/L ABG O2 Saturation (94-97) % Hemoglobin (11.4-16.0) gm/dL Sodium (137-145) mmol/L Carbon Dioxide (22-30) mmol/L BUN (7-17) mg/dL Glucose (74-99) mg/dL POC Glucose (mg/dL) 129 H 134 H 156 H (70-110) mg/dL Calcium (8.4-10.2) mg/dL Phosphorus (2.5-4.5) mg/dL 12/30/24 12/30/24 12/30/24 Range/Units 01:05 02:09 02:58 RBC (3.80-5.40) m/uL Hgb (11.4-16.0) gm/dL Hct (34.0-46.0) % RDW (11.5-15.5) % Plt Count (150-450) k/uL Neutrophils # (1.3-7.7) k/uL Lymphocytes # (1.0-4.8) k/uL ABG pH (7.35-7.45) ABG pCO2 (35-45) mmHg ABG HCO3 (21-25) mmol/L ABG O2 Saturation (94-97) % Hemoglobin (11.4-16.0) gm/dL Sodium (137-145) mmol/L Carbon Dioxide (22-30) mmol/L BUN (7-17) mg/dL Glucose (74-99) mg/dL POC Glucose (mg/dL) 185 H 181 H 165 H (70-110) mg/dL Calcium (8.4-10.2) mg/dL Phosphorus (2.5-4.5) mg/dL 12/30/24 12/30/24 12/30/24 Range/Units 04:15 05:00 05:00 RBC 3.10 L (3.80-5.40) m/uL Hgb 9.2 L (11.4-16.0) gm/dL Hct 26.8 L (34.0-46.0) % RDW 15.9 H (11.5-15.5) % Plt Count 50 L (150-450) k/uL Neutrophils # 8.3 H (1.3-7.7) k/uL Lymphocytes # 0.3 L (1.0-4.8) k/uL ABG pH (7.35-7.45) ABG pCO2 (35-45) mmHg ABG HCO3 (21-25) mmol/L ABG O2 Saturation (94-97) % Hemoglobin (11.4-16.0) gm/dL Sodium 131 L (137-145) mmol/L Carbon Dioxide 20 L (22-30) mmol/L BUN 30 H (7-17) mg/dL Glucose 150 H (74-99) mg/dL POC Glucose (mg/dL) 163 H (70-110) mg/dL Calcium 8.2 L (8.4-10.2) mg/dL Phosphorus 4.6 H (2.5-4.5) mg/dL 12/30/24 12/30/24 12/30/24 Range/Units 08:18 09:12 09:51 RBC (3.80-5.40) m/uL Hgb (11.4-16.0) gm/dL Hct (34.0-46.0) % RDW (11.5-15.5) % Plt Count (150-450) k/uL Neutrophils # (1.3-7.7) k/uL Lymphocytes # (1.0-4.8) k/uL ABG pH (7.35-7.45) ABG pCO2 (35-45) mmHg ABG HCO3 (21-25) mmol/L ABG O2 Saturation (94-97) % Hemoglobin (11.4-16.0) gm/dL Sodium (137-145) mmol/L Carbon Dioxide (22-30) mmol/L BUN (7-17) mg/dL Glucose (74-99) mg/dL POC Glucose (mg/dL) 157 H 145 H 139 H (70-110) mg/dL Calcium (8.4-10.2) mg/dL Phosphorus (2.5-4.5) mg/dL 12/30/24 12/30/24 Range/Units 11:08 12:52 RBC (3.80-5.40) m/uL Hgb (11.4-16.0) gm/dL Hct (34.0-46.0) % RDW (11.5-15.5) % Plt Count (150-450) k/uL Neutrophils # (1.3-7.7) k/uL Lymphocytes # (1.0-4.8) k/uL ABG pH (7.35-7.45) ABG pCO2 (35-45) mmHg ABG HCO3 (21-25) mmol/L ABG O2 Saturation (94-97) % Hemoglobin (11.4-16.0) gm/dL Sodium (137-145) mmol/L Carbon Dioxide (22-30) mmol/L BUN (7-17) mg/dL Glucose (74-99) mg/dL POC Glucose (mg/dL) 158 H 231 H (70-110) mg/dL Calcium (8.4-10.2) mg/dL Phosphorus (2.5-4.5) mg/dL Assessment and Plan Assessment: Impression: Septic shock secondary to pneumoperitoneum and intra-abdominal abscesses with sigmoid diverticulitis Acute hypoxic respiratory failure secondary to abdominal sepsis and septic shock Gram-negative bacteremia secondary to E. coli secondary to above Acute sigmoid diverticulitis with pneumoperitoneum requiring exploratory laparotomy, drainage of interloop abscess and sigmoid colectomy with diverting colostomy postoperative day #4 Lower extremity DVT/left lower extremity DVT requiring a IVC filter placement History of multiple myeloma with history of pathological fractures L2 vertebral body Type 2 diabetes Coronary artery disease and previous CABG Acute kidney injury secondary to abdominal sepsis Thrombocytopenia, multifactorial but mostly now related to sepsis. 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 Continue IV Protonix and GI prophylaxis Monitor platelets closely, improving today. Patient remains relatively ill however she could be transferred to medical surgical floor and will continue to follow Time with Patient: Greater than 30
[2024-12-30 14:08] VITALS: BMI 37.3
--- NOTE | 2024-12-30 16:01 | P.PN ---
Subjective Progress Note Date: 12/30/24 Principal diagnosis: abd pain, on Tx for MM In f/u pt seen in ICU, she is off mechanical ventilation, she is alert, not feeling great but, certainly better. Objective - Vital Signs Vital signs: Vital Signs Temp 97.6 F 12/30/24 14:00 Pulse 78 12/30/24 14:00 Resp 12 12/30/24 14:00 BP 143/70 12/30/24 14:00 Pulse Ox 98 12/30/24 14:00 FiO2 30 12/30/24 08:00 Intake & Output 12/29/24 12/30/24 12/30/24 18:59 06:59 18:59 Intake Total 7104.654 9213.723 228 Output Total 290 1475 225 Balance 1569.890 -433.277 3 Weight 86.8 kg 86.8 kg Intake: IV 1721 244 228 0.9 @ 10 20 ACETAMINOPHEN IV (For NPO 200 100 ) 1,000 mg In Empty Bag 1 bag @ 400 mls/hr IVPB Q6HR [facility] Rx#:[id number] Mvi, Adult No.4 with Vit 363 33 K 10 ml Trace (Conc-1Ml/ Dose) 1 ml In Amino Acid 5%-D20w+Lytes*E* 1,000 ml @ 30 mls/hr IV .Q24H [facility] Rx#:[id number] Mvi, Adult No.4 with Vit 99 K 10 ml Trace (Conc-1Ml/ Dose) 1 ml Sodium Acetate 22 meq Potassium Acetate 16 meq In Amino Acid 5%- D20w+Lytes*E* 1,000 ml @ 33 mls/hr IV .Q24H [facility] Rx #:[id number] Piperacillin-Tazobactam 3 200 100 .375 gm In Sodium Chloride 0.9% 100 ml @ 25 mls/hr IVPB Q8H [facility] Rx#: [id number] Potassium Chloride 10 meq 100 In Water For Injection 1 100ml.bag @ 100 mls/hr IVPB Q1H [facility] Rx#: [id number] Sodium Chloride 0.9% 1, 825 75 000 ml @ 75 mls/hr IV . [id number] [facility] Rx#:[id number] pressure bag 33 36 9 Intake, IV Titration 138.890 797.723 Amount Insulin Regular 100 unit 59.415 17.723 In Sodium Chloride 0.9% 100 ml @ Titrate IV .Q0M [facility] Rx#:[id number] Mvi, Adult No.4 with Vit 198 K 10 ml Trace (Conc-1Ml/ Dose) 1 ml Sodium Acetate 22 meq Potassium Acetate 16 meq In Amino Acid 5%- D20w+Lytes*E* 1,000 ml @ 33 mls/hr IV .Q24H [facility] Rx #:[id number] Mvi, Adult No.4 with Vit 132 K 10 ml Trace (Conc-1Ml/ Dose) 1 ml Sodium Chloride 4Meq/ml Vial 12 meq Potassium Acetate 10 meq In Amino Acid 5%-D20w +Lytes*E* 1,000 ml @ 33 mls/hr IV .Q24H [facility] Rx#: [id number] Sodium Chloride 0.9% 1, 450 000 ml @ 75 mls/hr IV . [id number] [facility] Rx#:[id number] propofoL 1,000 mg In 79.475 Empty Bag 1 bag @ 15 MCG/ KG/MIN 5.715 mls/hr IV . [id number] [facility] Rx#:[id number] Output: Drainage 0 20 Abdomen 0 20 Urine 290 1405 225 Stool 50 Other: Voiding Method Indwelling Catheter Indwelling Catheter ABP, PAP, CO, CI - Last Documented Arterial Blood Pressure 139/52 - Constitutional General appearance: Present: cooperative, no acute distress, obese - EENT Eyes: Present: anicteric sclerae, EOMI ENT: Present: hearing grossly normal - Cardiovascular Rhythm: regular - Integumentary Integumentary: Present: pale - Neurologic Neurologic: Present: CNII-XII intact - Musculoskeletal Musculoskeletal: Present: generalized weakness - Psychiatric Psychiatric: Present: A&O x's 3, intact judgment & insight - Labs CBC & Chem 7: 12/30/24 05:00 12/30/24 05:00 Labs: Abnormal Lab Results - Last 24 Hours (Table) 12/29/24 12/29/24 12/29/24 Range/Units 16:20 17:05 18:11 RBC (3.80-5.40) m/uL Hgb (11.4-16.0) gm/dL Hct (34.0-46.0) % RDW (11.5-15.5) % Plt Count (150-450) k/uL Neutrophils # (1.3-7.7) k/uL Lymphocytes # (1.0-4.8) k/uL Sodium (137-145) mmol/L Carbon Dioxide (22-30) mmol/L BUN (7-17) mg/dL Glucose (74-99) mg/dL POC Glucose (mg/dL) 173 H 158 H 145 H (70-110) mg/dL Calcium (8.4-10.2) mg/dL Phosphorus (2.5-4.5) mg/dL 12/29/24 12/29/24 12/29/24 Range/Units 20:21 20:55 23:06 RBC (3.80-5.40) m/uL Hgb (11.4-16.0) gm/dL Hct (34.0-46.0) % RDW (11.5-15.5) % Plt Count (150-450) k/uL Neutrophils # (1.3-7.7) k/uL Lymphocytes # (1.0-4.8) k/uL Sodium (137-145) mmol/L Carbon Dioxide (22-30) mmol/L BUN (7-17) mg/dL Glucose (74-99) mg/dL POC Glucose (mg/dL) 129 H 134 H 156 H (70-110) mg/dL Calcium (8.4-10.2) mg/dL Phosphorus (2.5-4.5) mg/dL 12/30/24 12/30/24 12/30/24 Range/Units 01:05 02:09 02:58 RBC (3.80-5.40) m/uL Hgb (11.4-16.0) gm/dL Hct (34.0-46.0) % RDW (11.5-15.5) % Plt Count (150-450) k/uL Neutrophils # (1.3-7.7) k/uL Lymphocytes # (1.0-4.8) k/uL Sodium (137-145) mmol/L Carbon Dioxide (22-30) mmol/L BUN (7-17) mg/dL Glucose (74-99) mg/dL POC Glucose (mg/dL) 185 H 181 H 165 H (70-110) mg/dL Calcium (8.4-10.2) mg/dL Phosphorus (2.5-4.5) mg/dL 12/30/24 12/30/24 12/30/24 Range/Units 04:15 05:00 05:00 RBC 3.10 L (3.80-5.40) m/uL Hgb 9.2 L (11.4-16.0) gm/dL Hct 26.8 L (34.0-46.0) % RDW 15.9 H (11.5-15.5) % Plt Count 50 L (150-450) k/uL Neutrophils # 8.3 H (1.3-7.7) k/uL Lymphocytes # 0.3 L (1.0-4.8) k/uL Sodium 131 L (137-145) mmol/L Carbon Dioxide 20 L (22-30) mmol/L BUN 30 H (7-17) mg/dL Glucose 150 H (74-99) mg/dL POC Glucose (mg/dL) 163 H (70-110) mg/dL Calcium 8.2 L (8.4-10.2) mg/dL Phosphorus 4.6 H (2.5-4.5) mg/dL 12/30/24 12/30/24 12/30/24 Range/Units 08:18 09:12 09:51 RBC (3.80-5.40) m/uL Hgb (11.4-16.0) gm/dL Hct (34.0-46.0) % RDW (11.5-15.5) % Plt Count (150-450) k/uL Neutrophils # (1.3-7.7) k/uL Lymphocytes # (1.0-4.8) k/uL Sodium (137-145) mmol/L Carbon Dioxide (22-30) mmol/L BUN (7-17) mg/dL Glucose (74-99) mg/dL POC Glucose (mg/dL) 157 H 145 H 139 H (70-110) mg/dL Calcium (8.4-10.2) mg/dL Phosphorus (2.5-4.5) mg/dL 12/30/24 12/30/24 Range/Units 11:08 12:52 RBC (3.80-5.40) m/uL Hgb (11.4-16.0) gm/dL Hct (34.0-46.0) % RDW (11.5-15.5) % Plt Count (150-450) k/uL Neutrophils # (1.3-7.7) k/uL Lymphocytes # (1.0-4.8) k/uL Sodium (137-145) mmol/L Carbon Dioxide (22-30) mmol/L BUN (7-17) mg/dL Glucose (74-99) mg/dL POC Glucose (mg/dL) 158 H 231 H (70-110) mg/dL Calcium (8.4-10.2) mg/dL Phosphorus (2.5-4.5) mg/dL Assessment and Plan (1) Perforated diverticulum Current Visit: Yes Status: Acute Priority: High Code(s): K57.80 - DVTRCLI OF INTEST, PART UNSP, W PERF AND ABSCESS W/O BLEED SNOMED Code(s): 48638077 (2) Multiple myeloma Current Visit: No Status: Chronic Priority: Medium Code(s): C90.00 - MULTIPLE MYELOMA NOT HAVING ACHIEVED REMISSION SNOMED Code(s): 907334267 Plan: Abd pain, diverticulitis with perforation -CT AP showing acute diverticulitis of the transverse colon with perforation -S/P sigmoid colectomy, abscess drainage and proximal omentectomy, neg for malignant process. -Surgical and Critical Care mgmt post op Bactremia -Blood culture positive for E. coli. Patient started on IV antibiotics. -ID following LLE DVT: -Recent diagnosis of LLE DVT. Was started on Eliquis -Due to drop in hgb, and concern for possible bleed, ASA and eliquis held -Vascular Surgery has placed IVC filter -Hope to get pt back on anticoagulation once she is stable Multiple myeloma -Oncology history as dictated in consult -She is s/p cycle 2, day 8 of RVD. She will not complete C2 D15. Her treatment will be postponed until she is adequately recovered and healed from surgery. -F/U appt with Primary Onc to assess her prior to resuming treatment-appt in DC plan Doctor attests: I performed a history and physical examination of this patient, developed impression and plan of care. Discussed with dictator. I agree with dictators note, documented as a scribe.
[2024-12-30] MEDS: MVI, ADULT NO.4 WITH VIT K 10 ML, TRACE (CONC-1ML/DOSE) 1 ML, SODIUM CHLORIDE 4MEQ/ML V... IV SCH (16:29)
[2024-12-30 17:30] LABS: Glucose,Whole Blood 220 mg/dL (70-110)
--- NOTE | 2024-12-30 17:40 | P.PN ---
Subjective Progress Note Date: 12/30/24 Principal diagnosis: Reason for follow-up is bacteremia perforated diverticulitis and abscess Patient is a 79-year-old female with a past medical history significant for Coronary Artery Disease (CAD), Cancer, Diabetes Mellitus, Hyperlipidemia, Hypertension, Thyroid Disorder presenting to the hospital for evaluation of abnormal CT that was done for abdominal pain with concern for perforated sigmoid diverticulitis did have a positive blood culture with E. coli probably this consultation.Patient is status post laparotomy sigmoid colectomy drainage of the interloop abscess and proximal omentectomy patient subsequent has been admitted to ICU on the vent. On today's evaluation that is 12/30/2024,the patient has been extubated and is breathing comfortably on 2 L nasal cannula oxygen is afebrile, denies any chest pain occasional cough abdominal pain is currently controlled no vomiting or diarrhea has been reported. Patient white count is 9.3 creatinine 0.96 Objective - Vital Signs Vital signs: Vital Signs Temp 97.7 F 12/30/24 08:00 Pulse 78 12/30/24 12:59 Resp 17 12/30/24 12:00 BP 142/72 12/30/24 11:00 Pulse Ox 99 12/30/24 11:00 FiO2 30 12/30/24 08:00 Intake & Output 12/29/24 12/30/24 12/30/24 18:59 06:59 18:59 Intake Total 4191.843 9037.723 228 Output Total 290 1475 225 Balance 1569.890 -433.277 3 Weight 86.8 kg Intake: IV 1721 244 228 0.9 @ 10 20 ACETAMINOPHEN IV (For NPO 200 100 ) 1,000 mg In Empty Bag 1 bag @ 400 mls/hr IVPB Q6HR [facility] Rx#:[id number] Mvi, Adult No.4 with Vit 363 33 K 10 ml Trace (Conc-1Ml/ Dose) 1 ml In Amino Acid 5%-D20w+Lytes*E* 1,000 ml @ 30 mls/hr IV .Q24H [facility] Rx#:[id number] Mvi, Adult No.4 with Vit 99 K 10 ml Trace (Conc-1Ml/ Dose) 1 ml Sodium Acetate 22 meq Potassium Acetate 16 meq In Amino Acid 5%- D20w+Lytes*E* 1,000 ml @ 33 mls/hr IV .Q24H [facility] Rx #:[id number] Piperacillin-Tazobactam 3 200 100 .375 gm In Sodium Chloride 0.9% 100 ml @ 25 mls/hr IVPB Q8H [facility] Rx#: [id number] Potassium Chloride 10 meq 100 In Water For Injection 1 100ml.bag @ 100 mls/hr IVPB Q1H [facility] Rx#: [id number] Sodium Chloride 0.9% 1, 825 75 000 ml @ 75 mls/hr IV . [id number] [facility] Rx#:[id number] pressure bag 33 36 9 Intake, IV Titration 138.890 797.723 Amount Insulin Regular 100 unit 59.415 17.723 In Sodium Chloride 0.9% 100 ml @ Titrate IV .Q0M [facility] Rx#:[id number] Mvi, Adult No.4 with Vit 198 K 10 ml Trace (Conc-1Ml/ Dose) 1 ml Sodium Acetate 22 meq Potassium Acetate 16 meq In Amino Acid 5%- D20w+Lytes*E* 1,000 ml @ 33 mls/hr IV .Q24H [facility] Rx #:[id number] Mvi, Adult No.4 with Vit 132 K 10 ml Trace (Conc-1Ml/ Dose) 1 ml Sodium Chloride 4Meq/ml Vial 12 meq Potassium Acetate 10 meq In Amino Acid 5%-D20w +Lytes*E* 1,000 ml @ 33 mls/hr IV .Q24H [facility] Rx#: [id number] Sodium Chloride 0.9% 1, 450 000 ml @ 75 mls/hr IV . [id number] [facility] Rx#:[id number] propofoL 1,000 mg In 79.475 Empty Bag 1 bag @ 15 MCG/ KG/MIN 5.715 mls/hr IV . [id number] [facility] Rx#:[id number] Output: Drainage 0 20 Abdomen 0 20 Urine 290 1405 225 Stool 50 Other: Voiding Method Indwelling Catheter Indwelling Catheter ABP, PAP, CO, CI - Last Documented Arterial Blood Pressure 139/52 - Exam GENERAL DESCRIPTION: An elderly female intubated on the vent RESPIRATORY SYSTEM: Unlabored breathing , decreased breath sounds at bases HEART: S1 S2 regular rate and rhythm , ABDOMEN: Soft , mild tenderness EXTREMITIES: No edema feet - Labs CBC & Chem 7: 12/30/24 05:00 12/30/24 05:00 Labs: Abnormal Lab Results - Last 24 Hours (Table) 12/29/24 12/29/24 12/29/24 Range/Units 14:08 14:45 15:19 RBC (3.80-5.40) m/uL Hgb (11.4-16.0) gm/dL Hct (34.0-46.0) % RDW (11.5-15.5) % Plt Count (150-450) k/uL Neutrophils # (1.3-7.7) k/uL Lymphocytes # (1.0-4.8) k/uL ABG pH 7.48 H (7.35-7.45) ABG pCO2 26 L (35-45) mmHg ABG HCO3 19 L (21-25) mmol/L ABG O2 Saturation 98.8 H (94-97) % Hemoglobin 9.7 L (11.4-16.0) gm/dL Sodium (137-145) mmol/L Carbon Dioxide (22-30) mmol/L BUN (7-17) mg/dL Glucose (74-99) mg/dL POC Glucose (mg/dL) 208 H 186 H (70-110) mg/dL Calcium (8.4-10.2) mg/dL Phosphorus (2.5-4.5) mg/dL 12/29/24 12/29/24 12/29/24 Range/Units 16:20 17:05 18:11 RBC (3.80-5.40) m/uL Hgb (11.4-16.0) gm/dL Hct (34.0-46.0) % RDW (11.5-15.5) % Plt Count (150-450) k/uL Neutrophils # (1.3-7.7) k/uL Lymphocytes # (1.0-4.8) k/uL ABG pH (7.35-7.45) ABG pCO2 (35-45) mmHg ABG HCO3 (21-25) mmol/L ABG O2 Saturation (94-97) % Hemoglobin (11.4-16.0) gm/dL Sodium (137-145) mmol/L Carbon Dioxide (22-30) mmol/L BUN (7-17) mg/dL Glucose (74-99) mg/dL POC Glucose (mg/dL) 173 H 158 H 145 H (70-110) mg/dL Calcium (8.4-10.2) mg/dL Phosphorus (2.5-4.5) mg/dL 12/29/24 12/29/24 12/29/24 Range/Units 20:21 20:55 23:06 RBC (3.80-5.40) m/uL Hgb (11.4-16.0) gm/dL Hct (34.0-46.0) % RDW (11.5-15.5) % Plt Count (150-450) k/uL Neutrophils # (1.3-7.7) k/uL Lymphocytes # (1.0-4.8) k/uL ABG pH (7.35-7.45) ABG pCO2 (35-45) mmHg ABG HCO3 (21-25) mmol/L ABG O2 Saturation (94-97) % Hemoglobin (11.4-16.0) gm/dL Sodium (137-145) mmol/L Carbon Dioxide (22-30) mmol/L BUN (7-17) mg/dL Glucose (74-99) mg/dL POC Glucose (mg/dL) 129 H 134 H 156 H (70-110) mg/dL Calcium (8.4-10.2) mg/dL Phosphorus (2.5-4.5) mg/dL 12/30/24 12/30/24 12/30/24 Range/Units 01:05 02:09 02:58 RBC (3.80-5.40) m/uL Hgb (11.4-16.0) gm/dL Hct (34.0-46.0) % RDW (11.5-15.5) % Plt Count (150-450) k/uL Neutrophils # (1.3-7.7) k/uL Lymphocytes # (1.0-4.8) k/uL ABG pH (7.35-7.45) ABG pCO2 (35-45) mmHg ABG HCO3 (21-25) mmol/L ABG O2 Saturation (94-97) % Hemoglobin (11.4-16.0) gm/dL Sodium (137-145) mmol/L Carbon Dioxide (22-30) mmol/L BUN (7-17) mg/dL Glucose (74-99) mg/dL POC Glucose (mg/dL) 185 H 181 H 165 H (70-110) mg/dL Calcium (8.4-10.2) mg/dL Phosphorus (2.5-4.5) mg/dL 12/30/24 12/30/24 12/30/24 Range/Units 04:15 05:00 05:00 RBC 3.10 L (3.80-5.40) m/uL Hgb 9.2 L (11.4-16.0) gm/dL Hct 26.8 L (34.0-46.0) % RDW 15.9 H (11.5-15.5) % Plt Count 50 L (150-450) k/uL Neutrophils # 8.3 H (1.3-7.7) k/uL Lymphocytes # 0.3 L (1.0-4.8) k/uL ABG pH (7.35-7.45) ABG pCO2 (35-45) mmHg ABG HCO3 (21-25) mmol/L ABG O2 Saturation (94-97) % Hemoglobin (11.4-16.0) gm/dL Sodium 131 L (137-145) mmol/L Carbon Dioxide 20 L (22-30) mmol/L BUN 30 H (7-17) mg/dL Glucose 150 H (74-99) mg/dL POC Glucose (mg/dL) 163 H (70-110) mg/dL Calcium 8.2 L (8.4-10.2) mg/dL Phosphorus 4.6 H (2.5-4.5) mg/dL 12/30/24 12/30/24 12/30/24 Range/Units 08:18 09:12 09:51 RBC (3.80-5.40) m/uL Hgb (11.4-16.0) gm/dL Hct (34.0-46.0) % RDW (11.5-15.5) % Plt Count (150-450) k/uL Neutrophils # (1.3-7.7) k/uL Lymphocytes # (1.0-4.8) k/uL ABG pH (7.35-7.45) ABG pCO2 (35-45) mmHg ABG HCO3 (21-25) mmol/L ABG O2 Saturation (94-97) % Hemoglobin (11.4-16.0) gm/dL Sodium (137-145) mmol/L Carbon Dioxide (22-30) mmol/L BUN (7-17) mg/dL Glucose (74-99) mg/dL POC Glucose (mg/dL) 157 H 145 H 139 H (70-110) mg/dL Calcium (8.4-10.2) mg/dL Phosphorus (2.5-4.5) mg/dL 12/30/24 12/30/24 Range/Units 11:08 12:52 RBC (3.80-5.40) m/uL Hgb (11.4-16.0) gm/dL Hct (34.0-46.0) % RDW (11.5-15.5) % Plt Count (150-450) k/uL Neutrophils # (1.3-7.7) k/uL Lymphocytes # (1.0-4.8) k/uL ABG pH (7.35-7.45) ABG pCO2 (35-45) mmHg ABG HCO3 (21-25) mmol/L ABG O2 Saturation (94-97) % Hemoglobin (11.4-16.0) gm/dL Sodium (137-145) mmol/L Carbon Dioxide (22-30) mmol/L BUN (7-17) mg/dL Glucose (74-99) mg/dL POC Glucose (mg/dL) 158 H 231 H (70-110) mg/dL Calcium (8.4-10.2) mg/dL Phosphorus (2.5-4.5) mg/dL Microbiology - Last 24 Hours (Table) 12/27/24 09:02 Gram Stain - Final Sputum Sputum Culture - Final Assessment and Plan (1) Perforation of sigmoid colon due to diverticulitis Current Visit: Yes Status: Acute Code(s): K57.20 - DVTRCLI OF LG INT W PERFORATION AND ABSCESS W/O BLEEDING SNOMED Code(s): 2674326284825898 (2) Bacteremia Current Visit: Yes Status: Acute Code(s): R78.81 - BACTEREMIA SNOMED Code(s): 8064225 Plan: 1patient with E. coli bacteremia source likely abdominal in this patient with evidence of abnormal CT with free air concerning for perforated diverticulitis but did not mention any abscess, patient did have a repeat CT that has been suggestive of perforated diverticulitis and abscess and patient status post laparotomy sigmoid colectomy drainage of the interloop abscess procedure completed on 12/26/2024 2patient is afebrile patient white count has normalized and the patient has been extubated will continue Zosyn while inpatient and monitor clinical course closely Dictation was produced using [employer] dictation software. please excuse any gramma tical, word or spelling errors. Time with Patient: Less than 30
[2024-12-30 20:30] LABS: Glucose,Whole Blood 237 mg/dL (70-110)
[2024-12-31] MEDS: IPRATROPIUM-ALBUTEROL 3 ML NEB INHALATION PRN (05:34)
[2024-12-31 06:55] LABS: African American GFR (CKD) 84 (>60 ml/min/1.73 sqM); Anion Gap 7 mmol/L; Blood Urea Nitrogen 35 mg/dL (7-17); Calcium 8.3 mg/dL (8.4-10.2); Carbon Dioxide 22 mmol/L (22-30); Chloride 101 mmol/L (98-107); Glucose 244 mg/dL (74-99); Non-African American GFR(CKD) 73 (>60 ml/min/1.73 sqM); Phosphorus 3.5 mg/dL (2.5-4.5); Potassium 3.1 mmol/L (3.5-5.1); Sodium 130 mmol/L (137-145)
[2024-12-31 07:16] LABS: Glucose,Whole Blood 279 mg/dL (70-110)
[2024-12-31] MEDS: FAT EMULSION 20% 250 ML in EMPTY BAG 1 BAG IV SCH (08:45)
--- NOTE | 2024-12-31 11:15 | P.PN ---
Subjective Progress Note Date: 12/31/24 SURGICAL PROGRESS NOTE CHIEF COMPLAINT: Perforated diverticulitis with abscess HISTORY OF PRESENT ILLNESS: Patient transferred out of the ICU yesterday to regular medical floor. Her ostomy is functioning. Denies any nausea or vomiting. Has eaten a small amount of the clear liquids. On TPN for nutrition support. Afebrile. Potassium 3.1 MILADIS drain 100 mL serosanguineous output through the night and 50 mL output this morning. PHYSICAL EXAM: VITAL SIGNS: Reviewed. GENERAL: Well-developed in no acute distress. ABDOMEN: Soft. Nondistended. Midline incision with a small area of oozing above the umbilicus. The area is becoming more clotted. Otherwise no erythema or signs of infection NEUROLOGIC: Patient is awake and alert ASSESSMENT: 1. Perforated diverticulitis with abscess 2. E. coli bacteremia 3. History of multiple myeloma 4. Hypokalemia PLAN: -Continue clear liquid diet -Continue TPN for nutrition support until oral intake increases -Continue antibiotics -Continue pain management -Encourage patient increase activity level -Potassium replacement per pharmacy -SCDs for DVT prophylaxis Physician Insecticide Mixer note has been reviewed by physician. Signing provider agrees with the documented findings, assessment, and plan of care. Objective - Vital Signs Vital signs: Vital Signs Temp 98.1 F 12/31/24 07:46 Pulse 74 12/31/24 10:54 Resp 19 12/31/24 07:46 BP 146/74 12/31/24 07:46 Pulse Ox 99 12/31/24 07:46 FiO2 35 12/31/24 07:46 Intake & Output 12/30/24 12/31/24 12/31/24 18:59 06:59 18:59 Intake Total 768 560 Output Total 775 1725 380 Balance -7 180 Weight 86.8 kg Intake: IV 228 0.9 @ 10 20 Mvi, Adult No.4 with Vit 99 K 10 ml Trace (Conc-1Ml/ Dose) 1 ml Sodium Acetate 22 meq Potassium Acetate 16 meq In Amino Acid 5%- D20w+Lytes*E* 1,000 ml @ 33 mls/hr IV .Q24H [facility] Rx #:[id number] Piperacillin-Tazobactam 3 100 .375 gm In Sodium Chloride 0.9% 100 ml @ 25 mls/hr IVPB Q8H [facility] Rx#: [id number] pressure bag 9 Oral 540 560 Output: Drainage 50 100 55 Abdomen 50 100 55 Urine 625 1375 325 Stool 100 250 Other: Voiding Method Indwelling Catheter ABP, PAP, CO, CI - Last Documented Arterial Blood Pressure 139/52 - Labs CBC & Chem 7: 12/30/24 05:00 12/31/24 05:47 Labs: Abnormal Lab Results - Last 24 Hours (Table) 12/30/24 12/30/24 12/30/24 Range/Units 05:00 11:08 12:52 Sodium (137-145) mmol/L Potassium (3.5-5.1) mmol/L BUN (7-17) mg/dL Glucose (74-99) mg/dL POC Glucose (mg/dL) 158 H 231 H (70-110) mg/dL Calcium (8.4-10.2) mg/dL Triglycerides 229.00 H (0.00-149.00) mg/dL 12/30/24 12/30/24 12/31/24 Range/Units 17:28 20:28 05:47 Sodium 130 L (137-145) mmol/L Potassium 3.1 L (3.5-5.1) mmol/L BUN 35 H (7-17) mg/dL Glucose 244 H (74-99) mg/dL POC Glucose (mg/dL) 220 H 237 H (70-110) mg/dL Calcium 8.3 L (8.4-10.2) mg/dL Triglycerides (0.00-149.00) mg/dL 12/31/24 Range/Units 07:14 Sodium (137-145) mmol/L Potassium (3.5-5.1) mmol/L BUN (7-17) mg/dL Glucose (74-99) mg/dL POC Glucose (mg/dL) 279 H (70-110) mg/dL Calcium (8.4-10.2) mg/dL Triglycerides (0.00-149.00) mg/dL
[2024-12-31] MEDS ORDERED: Magnesium Replacement Protocol 1 EACH MISC MISCELLANE PRN (11:22)
--- NOTE | 2024-12-31 11:39 | P.PN ---
Subjective Progress Note Date: 12/31/24 Progress Note Date: 12/28/24 Principal diagnosis: . Perforated diverticulum , complicated by multiple myeloma, still intubated Status post resected bowel secondary to perforated diverticulum postop day 3 patient awake with limited responses 12/30/2024 status post sigmoid colectomy, drainage of interloop abscess, proximal laminectomy on 12/26/2024 with right femoral IVC placed on 12/28/2024. maintained on TPN. Sodium improving, 131, bicarb 20, BUN 30, creatinine 0.96. Afebrile, Tmax 98, normal WBC, continues on Zosyn. Extubated yesterday, maintaining O2 sats in the high 90s on BiPAP 30% FiO2. Insulin drip transition to sliding scale with long-acting insulin, blood sugars controlled. 12/31/2024 transferred out of ICU to [facility] with telemetry. BiPAP during the night at 35% FiO2, currently maintaining O2 sats in the 90s on 2 L nasal cannula. Participated with PT this morning, performing range of motion repetitions of extremities. Tolerated exertion well. Maintained on TPN/lipids. minimal intake of clear liquid diet. Denies nausea or vomiting. Functioning ostomy. Pain controlled. Has not yet worked with her incentive spirometer this morning. Eliquis and aspirin remain on hold, hemoglobin pending. 3.1, supplementation ordered. Blood sugars elevated in the 200s. Bicarb 35, creatinine 0.79. Objective - Vital Signs Vital signs: Vital Signs Temp 98.1 F 12/31/24 07:46 Pulse 74 12/31/24 10:54 Resp 19 12/31/24 07:46 BP 146/74 12/31/24 07:46 Pulse Ox 99 12/31/24 07:46 FiO2 35 12/31/24 05:34 Intake & Output 12/30/24 12/31/24 12/31/24 18:59 06:59 18:59 Intake Total 768 560 Output Total 735 1725 325 Balance - 235 Weight 86.8 kg Intake: IV 228 0.9 @ 10 20 Mvi, Adult No.4 with Vit 99 K 10 ml Trace (Conc-1Ml/ Dose) 1 ml Sodium Acetate 22 meq Potassium Acetate 16 meq In Amino Acid 5%- D20w+Lytes*E* 1,000 ml @ 33 mls/hr IV .Q24H [facility] Rx #:[id number] Piperacillin-Tazobactam 3 100 .375 gm In Sodium Chloride 0.9% 100 ml @ 25 mls/hr IVPB Q8H [facility] Rx#: [id number] pressure bag 9 Oral 540 560 Output: Drainage 50 100 Abdomen 50 100 Urine 625 1375 325 Stool 100 250 Other: Voiding Method Indwelling Catheter ABP, PAP, CO, CI - Last Documented Arterial Blood Pressure 139/52 - Exam General: [Patient awake and oriented x 3, sitting up in bed, no acute distress. HEENT: [PERRL. EOMI. No pharyngeal erythema or exudate.] Neck: Supple, no JVD Cardiac: [Heart regular in rate and rhythm. No S3. No S4. No clicks, rubs. No murmur.] Lungs: [Unlabored, equal air entry, clear to auscultation bilaterally.] Abdomen: Soft, functioning colostomy/MILADIS drain with serosanguineous drainage. bowel sounds present. Extremes: Positive edema x 4 extremities,no cyanosis, wearing offloading boots. Skin: [No rash, warm and dry.] Neurologic: Cranial nerves II through XII grossly intact, generalized weakness. - Labs CBC & Chem 7: 12/31/24 05:47 12/31/24 05:47 Labs: Abnormal Lab Results - Last 24 Hours (Table) 12/30/24 12/30/24 12/30/24 Range/Units 05:00 11:08 12:52 Sodium (137-145) mmol/L Potassium (3.5-5.1) mmol/L BUN (7-17) mg/dL Glucose (74-99) mg/dL POC Glucose (mg/dL) 158 H 231 H (70-110) mg/dL Calcium (8.4-10.2) mg/dL Triglycerides 229.00 H (0.00-149.00) mg/dL 12/30/24 12/30/24 12/31/24 Range/Units 17:28 20:28 05:47 Sodium 130 L (137-145) mmol/L Potassium 3.1 L (3.5-5.1) mmol/L BUN 35 H (7-17) mg/dL Glucose 244 H (74-99) mg/dL POC Glucose (mg/dL) 220 H 237 H (70-110) mg/dL Calcium 8.3 L (8.4-10.2) mg/dL Triglycerides (0.00-149.00) mg/dL 12/31/24 Range/Units 07:14 Sodium (137-145) mmol/L Potassium (3.5-5.1) mmol/L BUN (7-17) mg/dL Glucose (74-99) mg/dL POC Glucose (mg/dL) 279 H (70-110) mg/dL Calcium (8.4-10.2) mg/dL Triglycerides (0.00-149.00) mg/dL Assessment and Plan Assessment: (1) Abdominal pain Current Visit: Yes Status: Acute Code(s): R10.9 - UNSPECIFIED ABDOMINAL PAIN SNOMED Code(s): 39802092 (2) Bacteremia Current Visit: Yes Status: Acute Code(s): R78.81 - BACTEREMIA SNOMED C ode(s): 6976033 (3) Pancytopenia Current Visit: Yes Status: Acute Code(s): D61.818 - OTHER PANCYTOPENIA SNOMED Code(s): 054246879 (4) Perforated diverticulum Current Visit: Yes Status: Acute Priority: High Code(s): K57.80 - DVTRCLI OF INTEST, PART UNSP, W PERF AND ABSCESS W/O BLEED SNOMED Code(s): 20052641 (5) Perforation of sigmoid colon due to diverticulitis, status post sigmoid colectomy, drainage of interloop abscess, proximal laminectomy on 12/26/2024 with right femoral IVC placed on 12/28/2024 Current Visit: Yes Status: Acute Code(s): K57.20 - DVTRCLI OF LG INT W PERFORATION AND ABSCESS W/O BLEEDING SNOMED Code(s): 3370192647453642 (6) Pneumoperitoneum Current Visit: Yes Status: Acute Code(s): K66.8 - OTHER SPECIFIED DISORDERS OF PERITONEUM SNOMED Code(s): 50509885 (7) S/P colectomy Current Visit: Yes Status: Acute Code(s): Z90.49 - ACQUIRED ABSENCE OF OTHER SPECIFIED PARTS OF DIGESTIVE TRACT SNOMED Code(s): 374423068 (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 Current Visit: Yes Status: Acute Code(s): E11.59 - TYPE 2 DIABETES MELLITUS WITH OTH CIRCULATORY COMPLICATIONS SNOMED Code(s): 43121557 (9) Coronary artery 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 Current Visit: No Status: Acute Code(s): E11.59 - TYPE 2 DIABETES MELLITUS WITH OTH CIRCULATORY COMPLICATIONS; I25.10 - ATHSCL HEART DISEASE OF [place] CORONARY ARTERY W/O ANG PCTRS SNOMED Code(s): 90778286769510945 (10) Deep vein thrombosis (DVT) of lower extremity Current Visit: No Status: Acute Priority: Medium Code(s): I82.409 - ACUTE EMBOLISM AND THOMBOS UNSP DEEP VN UNSP LOWER EXTREMITY SNOMED Code(s): 804241173 (11) H/O four vessel coronary artery bypass graft Current Visit: No Status: Acute Code(s): Z95.1 - PRESENCE OF AORTOCORONARY B YPASS GRAFT SNOMED Code(s): 307966386 (12) Hypertension Current Visit: No Status: Acute Code(s): I10 - ESSENTIAL (PRIMARY) HYPERTENSION SNOMED Code(s): 15436916 (13) Multiple myeloma Current Visit: No Status: Acute Code(s): C90.00 - MULTIPLE MYELOMA NOT HAVING ACHIEVED REMISSION SNOMED Code(s): 352841192 Plan: Continue on current medication regimen ,monitoring and symptomatic treatment. Aggressive pulmonary toileting with incentive spirometer reinforced. Diet advancement as per general surgery.TPN. Potassium supplemented .close monitoring of electrolytes .antibiotics as per infectious disease. Lantus increased with close monitoring of Accu-Cheks. Anticoagulation as per hematology, pending general surgery's clearance. Pain management. PT/OT, increase activity as tolerated. The impression and plan of care has been dictated as directed. : I performed a history and examination of this patient, discussed the same with the dictator. I agree with the dictator's note ,documented as a scribe. Any additional findings or plans will be noted.
[2024-12-31] MEDS: INSULIN GLARGINE (LANTUS) 100 UNIT/ML SYR SQ ONE (12:03)
[2024-12-31] MEDS: POTASSIUM CHLORIDE ER 20 MEQ TAB.ER PO SCH (12:03)
[2024-12-31 12:19] LABS: HCT 29.5 % (34.0-46.0); HGB 9.5 gm/dL (11.4-16.0); Hypochromasia Moderate; MCH 29.2 pg (25.0-35.0); MCHC 32.4 g/dL (31.0-37.0); MCV 90.3 fL (80.0-100.0); Mean Platelet Volume 13.3; RBC 3.26 m/uL (3.80-5.40); RDW 15.7 % (11.5-15.5); WBC 6.5 k/uL (3.8-10.6)
[2024-12-31 12:25] LABS: Glucose,Whole Blood 279 mg/dL (70-110)
--- NOTE | 2024-12-31 13:11 | P.PN ---
Subjective Progress Note Date: 12/31/24 This is a 79-year-old female patient with known history of coronary artery disease and previous bypass surgery and known history of diabetes mellitus type 2 and multiple myeloma and the patient was diagnosed having multiple myeloma back in May 2024 and the patient had significant back pain with pathologic bone marrow infiltration throughout the lumbar spine and pelvic area with a pathologic fracture of the L2 vertebral body and osseous extension of the tumor causing left neural foraminal narrowing at the level of L1-L2 and L2-L3. The patient was started on treatment with palliative radiation therapy and following that she was started on RVD treatment and she completed cycle 2 on 12/24/2024. Subsequently, the patient gets hospitalized for an extensive left lower extremity DVT involving a clot extending from the left iliac to the popliteal vein and the patient was started on anticoagulation with Eliquis. She was discharged to be readmitted for abdominal pain and this was assumed to be rel ated to constipation. She was discharged to be readmitted for ongoing abdominal pain and the patient was diagnosed having acute diverticulitis. Yesterday, the patient was taken to the operating room as the follow-up CAT scan of the abdomen showed a complicated diverticulitis of the sigmoid colon with perforation and pneumoperitoneum. There was 8 cm gas/fluid collection consistent with an absces s. She also had cholelithiasis and diffuse anasarca. In the operating room, the patient was found to have an abdominal abscess that was drained. The patient had sigmoid colectomy and diverting colostomy. Postop, the patient was kept intubated and placed on the mechanical ventilator and she was transferred to the ICU. Noted her anticoagulation is currently on hold and she is not showing any signs of bleeding. He is currently off anticoagulants. Vascular surgery has seen the patient and patient is being contemplated for IVC filter placement. Platelet counts are also low. This morning, she is on propofol at rate of 30, she is on assist-control mode at rate of 16, tidal volume of 350, F iO2 40% with a PEEP of 5. Blood gas showed a pH of 7.48 with a pCO2 of 30 and pO2 175. NG tube output is minimal and fluid balance is +2.7 L of the patient received several fluid boluses yesterday. She remains on Alvin-Synephrine at 1.3 mcg. Producing urine output. White cell count is 14.7, hemoglobin is 8.7 and platelet count is at 73. The non-anion gap metabolic acidosis is improved and the patient serum bicarb is up to 22. Sodium levels at 127. Potassium is at 4.2. LFTs are normal. Blood sugar is at 363. Chest x-ray showed atelectatic changes lung base bilaterally. Orotracheal tube is in good location. Postthoracotomy changes related to previous heart surgery and some pulm vascular congestion is also present. The patient is currently on IV Zosyn. She will be started on TPN for nutritional support within the next 24 to 48 hours. Blood cultures positive for E. coli. Patient was seen today on 12/28/2024, patient remains in the ICU, she is on mechanical ventilation, and the patient just came back from IVC filter placement by vascular surgery. Patient is on assist-control rate of 16 tidal volume 350 FiO2 35% and PEEP of 5 ABG showed a pO2 of 150 pCO2 33 pH of 7.45 hence patient was transitioned to assist-control rate of 12 tidal volume 400 FiO2 30% and PEEP of 5 patient is also receiving a unit of packed RBCs for hemoglobin of 6.7. Requiring multiple drips including norepinephrine at 0.02 mcg/kg/min she is on TPN at 30 cc/h propofol 40 mg/kg/min and amiodarone 0.5 mg/min. Patient is also receiving insulin at 11.1 units/h. Her Solu-Cortef dose was cut down and the patient remains empirically on Zosyn. Today is postoperative day #2, patient is status post colectomy with ostomy and MILADIS drain placement. Again her presentation was mostly a presentation of abdominal sepsis. Chest x-ray today showed mostly bibasilar atelectasis., No evidence of pulmonary edema., And I doubt pneumonia. WBC count today 13.2 hemoglobin 6.7 platelets are 47,000's. Sodium is 128 potassium 2.9 chloride 98 BUN 31 creatinine 1.01 patient has received a total of 3 units of packed RBCs since admission. Blood cultures are positive for E. coli. Sensitive to Zosyn Seen today on 12/29/2024, remains in the ICU, intubated and mechanically ventilated, on assist-control mode of mechanical ventilation, rate 12 tidal volume 400 FiO2 30% PEEP of 5 ABG showed a pO2 of 114 pCO2 3 0 pH of 7.44 patient is requiring propofol at 45 mcg/kg/min she is not requiring any pressors today, patient is on TPN at 33 cc/h and IV fluid 0.9 normal saline at 75 cc/h. Her surgical site seems to be intact, ostomy seems to be pink, minimal bloody drainage into the ostomy bag. Patient is sedated, however I plan to discontinue propofol today and give the patient a weaning trial on Precedex. Her WBC count is 9.2 hemoglobin 8.7. Basic metabolic profile is relatively normal except for sodium of 128 renal profile is normal, chest x-ray showed mostly bibasilar atelectasis, no clear-cut evidence of infiltrate. Patient was seen today on 12/30/2024, patient remains in the ICU, however the patient was extubated yesterday, and extubation was successful. Patient is now on 2 L nasal cannula, she was initially extubated to BiPAP 09/17/35%, patient is awake, alert oriented x 3, does not seem to be in any distress, remains on TPN she is also on lipids. Her ostomy seems to be functioning quite well, her nasogastric tube was removed, my plan is to transfer the patient today to regular medical floor/MedSurg. WBC count today is 9.3 hemoglobin 9.2 platelets remain low at 50,000 but improving, basic metabolic profile is normal BUN is 30 creatinine 0.96. Patient remains on hydrocortisone 50 mg IV push every 12 hours, remains on Dilaudid as needed, patient is also on Zosyn and on Protonix. The patient is seen today December 31, 2024 in follow-up on the regular medical floor. She was transferred out of the intensive care unit yesterday. She is resting in bed. Awake and alert in no acute distress. Maintaining good O2 saturations in the 90s on 2 L/min per nasal cannula. She is afebrile. Hemodynamically stable. She did wear BiPAP last evening 09/17 and 35% FiO2. She is being nourished with TPN and lipids. Sodium 130. Potassium 3.1. Bicarb 35. Creatinine 0.79. Glucose 244. Ostomy functioning. He is tolerating a clear liquid diet. Objective - Vital Signs Vital signs: Vital Signs Temp 97.6 F 12/31/24 12:00 Pulse 78 12/31/24 12:00 Resp 16 12/31/24 12:00 BP 165/81 12/31/24 12:00 Pulse Ox 98 12/31/24 12:00 FiO2 35 12/31/24 07:46 Intake & Output 12/30/24 12/31/24 12/31/24 18:59 06:59 18:59 Intake Total 768 560 Output Total 775 1725 380 Balance -7 -1725 180 Weight 86.8 kg Intake: IV 228 0.9 @ 10 20 Mvi, Adult No.4 with Vit 99 K 10 ml Trace (Conc-1Ml/ Dose) 1 ml Sodium Acetate 22 meq Potassium Acetate 16 meq In Amino Acid 5%- D20w+Lytes*E* 1,000 ml @ 33 mls/hr IV .Q24H [facility] Rx #:[id number] Piperacillin-Tazobactam 3 100 .375 gm In Sodium Chloride 0.9% 100 ml @ 25 mls/hr IVPB Q8H [facility] Rx#: [id number] pressure bag 9 Oral 540 560 Output: Drainage 50 100 55 Abdomen 50 100 55 Urine 625 1375 325 Stool 100 250 Other: Voiding Method Indwelling Catheter ABP, PAP, CO, CI - Last Documented Arterial Blood Pressure 139/52 - Exam GENERAL EXAM: Alert, pleasant 79-year-old female, on 3 L nasal cannula, comfortable in no apparent distress. HEAD: Normocephalic. EYES: Normal reaction of pupils, equal size. NOSE: Clear with pink turbinates. THROAT: No erythema or exudates. NECK: No masses, no JVD. CHEST: No chest wall deformity. LUNGS: Equal air entry with no crackles, wheeze, rhonchi or dullness. CVS: S1 and S2 normal with no audible murmur, regular rhythm. ABDOMEN: Ostomy functioning. No hepatosplenomegaly, normal bowel sounds, no guarding or rigidity. SPINE: No scoliosis or deformity SKIN: No rashes CENTRAL NERVOUS SYSTEM: No focal deficits, tone is normal in all 4 extremities. EXTREMITIES: There is no peripheral edema. No clubbing, no cyanosis. Peripheral pulses are intact. - Labs CBC & Chem 7: 12/30/24 05:00 12/31/24 05:47 Labs: Abnormal Lab Results - Last 24 Hours (Table) 12/30/24 12/30/24 12/30/24 Range/Units 05:00 12:52 17:28 Sodium (137-145) mmol/L Potassium (3.5-5.1) mmol/L BUN (7-17) mg/dL Glucose (74-99) mg/dL POC Glucose (mg/dL) 231 H 220 H (70-110) mg/dL Calcium (8.4-10.2) mg/dL Triglycerides 229.00 H (0.00-149.00) mg/dL 12/30/24 12/31/24 12/31/24 Range/Units 20:28 05:47 07:14 Sodium 130 L (137-145) mmol/L Potassium 3.1 L (3.5-5.1) mmol/L BUN 35 H (7-17) mg/dL Glucose 244 H (74-99) mg/dL POC Glucose (mg/dL) 237 H 279 H (70-110) mg/dL Calcium 8.3 L (8.4-10.2) mg/dL Triglycerides (0.00-149.00) mg/dL 12/31/24 Range/Units 12:24 Sodium (137-145) mmol/L Potassium (3.5-5.1) mmol/L BUN (7-17) mg/dL Glucose (74-99) mg/dL POC Glucose (mg/dL) 279 H (70-110) mg/dL Calcium (8.4-10.2) mg/dL Triglycerides (0.00-149.00) mg/dL Assessment and Plan Assessment: Septic shock secondary to pneumoperitoneum and intra-abdominal abscesses with sigmoid diverticulitis Acute hypoxic respiratory failure secondary to abdominal sepsis and septic shock Bacteremia secondary to E. coli secondary to above. Remains on Zosyn Acute sigmoid diverticulitis with pneumoperitoneum requiring exploratory laparotomy, drainage of interloop abscess and sigmoid colectomy with diverting colostomy postoperative day #5 Lower extremity DVT/left lower extremity DVT requiring a IVC filter placement History of multiple myeloma with history of pathological fractures L2 vertebral body Type 2 diabetes Coronary artery disease and previous CABG Acute kidney injury secondary to abdominal sepsis Thrombocytopenia, multifactorial but mostly now related to sepsis. 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 Acute blood loss anemia superimposed o chronic anemia as noted above Patient was extubated and 12/29/2024 Plan: The patient was seen and evaluated Labs and medications reviewed Stable on 3 L nasal cannula Titrate down the FiO2 as tolerated Remains on Zosyn Decrease Solu-Cortef to 50 mg daily Plan to resume her home Decadron tomorrow Encouraged increased use of the incentive spirometer Increase her activity as tolerated Remains on TPN and lipids for nutritional support Tolerating a clear liquid diet Advance diet per surgical services We will continue to follow I have personally seen and examined the patient, performed the documentation and the assessment and plan as written. Number of minutes spent on the visit: 20 Dictation was produced using [employer] dictation software. Please excuse any grammatical, word or spelling errors.
[2024-12-31 13:25] LABS: Platelet Count 37 k/uL (150-450)
[2024-12-31] MEDS: ACETAMINOPHEN TAB 325 MG TAB PO PRN (15:19)
--- NOTE | 2024-12-31 16:01 | P.PN ---
Subjective Progress Note Date: 12/31/24 Principal diagnosis: Reason for follow-up is bacteremia perforated diverticulitis and abscess Patient is a 79-year-old female with a past medical history significant for Coronary Artery Disease (CAD), Cancer, Diabetes Mellitus, Hyperlipidemia, Hypertension, Thyroid Disorder presenting to the hospital for evaluation of abnormal CT that was done for abdominal pain with concern for perforated sigmoid diverticulitis did have a positive blood culture with E. coli probably this consultation.Patient is status post laparotomy sigmoid colectomy drainage of the interloop abscess and proximal omentectomy patient subsequent has been admitted to ICU on the vent. On today's evaluation that is 12/31/2024,the patient remains to be afebrile, patient is on 3 L nasal cannula supplemental oxygen and denies any shortness of breath no chest pain or cough.Patient denies having any nausea or vomiting, abdominal pain is currently controlled. Patient white count 6.5, creatinine 0.79 Objective - Vital Signs Vital signs: Vital Signs Temp 97.7 F 12/31/24 13:11 Pulse 70 12/31/24 15:31 Resp 20 12/31/24 13:11 BP 171/77 12/31/24 13:11 Pulse Ox 99 12/31/24 13:11 FiO2 35 12/31/24 07:46 Intake & Output 12/30/24 12/31/24 12/31/24 18:59 06:59 18:59 Intake Total 768 2060 Output Total 775 1725 1430 Balance -7 -1725 630 Weight 86.8 kg Intake: IV 228 0.9 @ 10 20 Mvi, Adult No.4 with Vit 99 K 10 ml Trace (Conc-1Ml/ Dose) 1 ml Sodium Acetate 22 meq Potassium Acetate 16 meq In Amino Acid 5%- D20w+Lytes*E* 1,000 ml @ 33 mls/hr IV .Q24H [facility] Rx #:[id number] Piperacillin-Tazobactam 3 100 .375 gm In Sodium Chloride 0.9% 100 ml @ 25 mls/hr IVPB Q8H [facility] Rx#: [id number] pressure bag 9 Oral 540 2060 Output: Drainage 50 100 105 Abdomen 50 100 105 Urine 625 1375 1225 Stool 100 250 100 Other: Voiding Method Indwelling Catheter ABP, PAP, CO, CI - Last Documented Arterial Blood Pressure 139/52 - Exam GENERAL DESCRIPTION: An elderly female intubated on the vent RESPIRATORY SYSTEM: Unlabored breathing , decreased breath sounds at bases HEART: S1 S2 regular rate and rhythm , ABDOMEN: Soft , mild tenderness EXTREMITIES: No edema feet - Labs CBC & Chem 7: 12/31/24 05:47 12/31/24 05:47 Labs: Abnormal Lab Results - Last 24 Hours (Table) 12/30/24 12/30/24 12/30/24 Range/Units 05:00 17:28 20:28 RBC (3.80-5.40) m/uL Hgb (11.4-16.0) gm/dL Hct (34.0-46.0) % RDW (11.5-15.5) % Plt Count (150-450) k/uL Sodium (137-145) mmol/L Potassium (3.5-5.1) mmol/L BUN (7-17) mg/dL Glucose (74-99) mg/dL POC Glucose (mg/dL) 220 H 237 H (70-110) mg/dL Calcium (8.4-10.2) mg/dL Triglycerides 229.00 H (0.00-149.00) mg/dL 12/31/24 12/31/24 12/31/24 Range/Units 05:47 05:47 07:14 RBC 3.26 L (3.80-5.40) m/uL Hgb 9.5 L (11.4-16.0) gm/dL Hct 29.5 L (34.0-46.0) % RDW 15.7 H (11.5-15.5) % Plt Count 37 L (150-450) k/uL Sodium 130 L (137-145) mmol/L Potassium 3.1 L (3.5-5.1) mmol/L BUN 35 H (7-17) mg/dL Glucose 244 H (74-99) mg/dL POC Glucose (mg/dL) 279 H (70-110) mg/dL Calcium 8.3 L (8.4-10.2) mg/dL Triglycerides (0.00-149.00) mg/dL 12/31/24 Range/Units 12:24 RBC (3.80-5.40) m/uL Hgb (11.4-16.0) gm/dL Hct (34.0-46.0) % RDW (11.5-15.5) % Plt Count (150-450) k/uL Sodium (137-145) mmol/L Potassium (3.5-5.1) mmol/L BUN (7-17) mg/dL Glucose (74-99) mg/dL POC Glucose (mg/dL) 279 H (70-110) mg/dL Calcium (8.4-10.2) mg/dL Triglycerides (0.00-149.00) mg/dL Assessment and Plan (1) Perforation of sigmoid colon due to diverticulitis Current Visit: Yes Status: Acute Code(s): K57.20 - DVTRCLI OF LG INT W PERFORATION AND ABSCESS W/O BLEEDING SNOMED Code(s): 2942097101324986 (2) Bacteremia Current Visit: Yes Status: Acute Code(s): R78.81 - BACTEREMIA SNOMED Code(s): 4579411 Plan: 1patient with E. coli bacteremia source likely abdominal in this patient with evidence of abnormal CT with free air concerning for perforated diverticulitis but did not mention any abscess, patient did have a repeat CT that has been suggestive of perforated diverticulitis and abscess and patient status post la parotomy sigmoid colectomy drainage of the interloop abscess procedure completed on 12/26/2024 2patient is afebrile patient white count has normalized 3we will continue the patient on Zosyn while inpatient transition to oral antibiotic on discharge Dictation was produced using [employer] dictation software. please excuse any grammatical, word or spelling errors Time with Patient: Less than 30
[2024-12-31 16:57] LABS: Glucose,Whole Blood 286 mg/dL (70-110)
--- NOTE | 2024-12-31 17:18 | P.PN ---
Subjective Patient is seen for follow-up for acute kidney injury. Patient is awake She has been transferred out of the ICU Maintained on TPN Serum creatinine 0.7 today and serum sodium at 130 Objective - Vital Signs Vital signs: Vital Signs Temp 97.7 F 12/31/24 13:11 Pulse 70 12/31/24 15:31 Resp 20 12/31/24 13:11 BP 171/77 12/31/24 13:11 Pulse Ox 99 12/31/24 13:11 FiO2 35 12/31/24 07:46 Intake & Output 12/30/24 12/31/24 12/31/24 18:59 06:59 18:59 Intake Total 768 2060 Output Total 775 1725 930 Balance -7 -1724 1130 Weight 86.8 kg Intake: IV 228 0.9 @ 10 20 Mvi, Adult No.4 with Vit 99 K 10 ml Trace (Conc-1Ml/ Dose) 1 ml Sodium Acetate 22 meq Potassium Acetate 16 meq In Amino Acid 5%- D20w+Lytes*E* 1,000 ml @ 33 mls/hr IV .Q24H [facility] Rx #:[id number] Piperacillin-Tazobactam 3 100 .375 gm In Sodium Chloride 0.9% 100 ml @ 25 mls/hr IVPB Q8H [facility] Rx#: [id number] pressure bag 9 Oral 540 2060 Output: Drainage 50 100 105 Abdomen 50 100 105 Urine 625 1375 625 Stool 100 250 200 Other: Voiding Method Indwelling Catheter ABP, PAP, CO, CI - Last Documented Arterial Blood Pressure 139/52 - Exam Patient is awake, following commands Examination of the heart S1 and S2 Examination of the lungs bilateral breath sounds are heard Abdomen is soft., MILADIS drain noted colostomy noted Examination of lower extremities shows 1+ edema - Labs CBC & Chem 7: 12/31/24 05:47 12/31/24 05:47 Labs: Abnormal Lab Results - Last 24 Hours (Table) 12/30/24 12/30/24 12/31/24 Range/Units 17:28 20:28 05:47 RBC (3.80-5.40) m/uL Hgb (11.4-16.0) gm/dL Hct (34.0-46.0) % RDW (11.5-15.5) % Plt Count (150-450) k/uL Sodium 130 L (137-145) mmol/L Potassium 3.1 L (3.5-5.1) mmol/L BUN 35 H (7-17) mg/dL Glucose 244 H (74-99) mg/dL POC Glucose (mg/dL) 220 H 237 H (70-110) mg/dL Calcium 8.3 L (8.4-10.2) mg/dL 12/31/24 12/31/24 12/31/24 Range/Units 05:47 07:14 12:24 RBC 3.26 L (3.80-5.40) m/uL Hgb 9.5 L (11.4-16.0) gm/dL Hct 29.5 L (34.0-46.0) % RDW 15.7 H (11.5-15.5) % Plt Count 37 L (150-450) k/uL Sodium (137-145) mmol/L Potassium (3.5-5.1) mmol/L BUN (7-17) mg/dL Glucose (74-99) mg/dL POC Glucose (mg/dL) 279 H 279 H (70-110) mg/dL Calcium (8.4-10.2) mg/dL 12/31/24 Range/Units 16:56 RBC (3.80-5.40) m/uL Hgb (11.4-16.0) gm/dL Hct (34.0-46.0) % RDW (11.5-15.5) % Plt Count (150-450) k/uL Sodium (137-145) mmol/L Potassium (3.5-5.1) mmol/L BUN (7-17) mg/dL Glucose (74-99) mg/dL POC Glucose (mg/dL) 286 H (70-110) mg/dL Calcium (8.4-10.2) mg/dL Assessment and Plan Assessment: 1. Acute kidney injury secondary to septic ATN. Baseline creatinine near 0.8 and peaked at 1.68 this admission -0.[address] scan from December 24, 2024 showed no evidence of hydronephrosis. 2. Multiple myeloma maintained on chemotherapy. 3. Acute diverticulitis with perforation being followed by surgery. Status post sigmoid colectomy with drainage of abscess December 26, 2024. 4. Acute blood loss anemia status post blood transfusion this admission. Status post IV DDAVP. 5. Metabolic acidosis secondary to acute kidney injury and IV fluids. Status post bicarb drip. Improved. 6. Hyponatremia, appears hypervolemic with third spacing 7. E. coli bacteremia on antibiotics. Plan: IV Lasix x 1 Continue with TPN Replace potassium Repeat labs in a.m.
[2024-12-31 20:13] LABS: Glucose,Whole Blood 221 mg/dL (70-110)
[2024-12-31] MEDS: MVI, ADULT NO.4 WITH VIT K 10 ML, TRACE (CONC-1ML/DOSE) 1 ML, SODIUM ACETATE 60 MEQ, PO... IV SCH (22:39)
[2025-01-01 05:53] LABS: Ionized Calcium 4.9 mg/dL (4.5-5.3)
[2025-01-01 06:02] LABS: African American GFR (CKD) >90 (>60 ml/min/1.73 sqM); Anion Gap 3 mmol/L; Blood Urea Nitrogen 34 mg/dL (7-17); Calcium 8.4 mg/dL (8.4-10.2); Carbon Dioxide 26 mmol/L (22-30); Chloride 102 mmol/L (98-107); Glucose 230 mg/dL (74-99); Non-African American GFR(CKD) 86 (>60 ml/min/1.73 sqM); Phosphorus 2.4 mg/dL (2.5-4.5); Potassium 3.4 mmol/L (3.5-5.1); Sodium 131 mmol/L (137-145)
[2025-01-01] MEDS: POTASSIUM CHLORIDE ER 20 MEQ TAB.ER PO SCH (06:21)
[2025-01-01 07:10] LABS: Glucose,Whole Blood 250 mg/dL (70-110)
[2025-01-01] MEDS: INSULIN GLARGINE (LANTUS) 100 UNIT/ML SYR SQ SCH ×2 (08:11→20:17)
[2025-01-01] MEDS: IPRATROPIUM-ALBUTEROL 3 ML NEB INHALATION SCH (08:52)
[2025-01-01 09:14] LABS: Anisocytosis Slight; HGB 8.7 gm/dL (11.4-16.0); MCHC 32.2 g/dL (31.0-37.0); Mean Platelet Volume 11.1; RDW 16.1 % (11.5-15.5)
[2025-01-01 09:18] LABS: Platelet Count 113 k/uL (150-450)
--- NOTE | 2025-01-01 09:50 | P.PN ---
Subjective Progress Note Date: 01/01/25 Progress Note Date: 12/28/24 Principal diagnosis: . Perforated diverticulum , complicated by multiple myeloma, still intubated Status post resected bowel secondary to perforated diverticulum postop day 3 patient awake with limited responses 12/30/2024 status post sigmoid colectomy, drainage of interloop abscess, proximal laminectomy on 12/26/2024 with right femoral IVC placed on 12/28/2024. maintained on TPN. Sodium improving, 131, bicarb 20, BUN 30, creatinine 0.96. Afebrile, Tmax 98, normal WBC, continues on Zosyn. Extubated yesterday, maintaining O2 sats in the high 90s on BiPAP 30% FiO2. Insulin drip transition to sliding scale with long-acting insulin, blood sugars controlled. 12/31/2024 transferred out of ICU to [facility] with telemetry. BiPAP during the night at 35% FiO2, currently maintaining O2 sats in the 90s on 2 L nasal cannula. Participated with PT this morning, performing range of motion repetitions of extremities. Tolerated exertion well. Maintained on TPN/lipids. minimal intake of clear liquid diet. Denies nausea or vomiting. Functioning ostomy. Pain controlled. Has not yet worked with her incentive spirometer this morning. Eliquis and aspirin remain on hold, hemoglobin pending. K 3.1, supplementation ordered. Blood sugars elevated in the 200s. Bicarb 35, creatinine 0.79. 01/01/2025 maintained on Zosyn, steroids. Afebrile, CBC pending. Eliquis and aspirin remains on hold for acute on chronic blood loss anemia; femoral IVC filter present. maintained on TPN and lipids for nutritional support. continues on clear liquid diet. Blood sugars in the 200s. Potassium 3.4, receiving supplementation. Pain controlled. Did not require BiPAP last night. Maintaining O2 sats in the high 90s to 100% on 2 L nasal cannula. Fluctuating hypertension with PRN IV push hydralazine in place. Objective - Vital Signs Vital signs: Vital Signs Temp 97.8 F 01/01/25 07:25 Pulse 64 01/01/25 07:25 Resp 14 01/01/25 07:25 BP 159/81 01/01/25 07:25 Pulse Ox 100 01/01/25 01:34 FiO2 35 12/31/24 07:46 Intake & Output 12/31/24 01/01/25 01/01/25 18:59 06:59 18:59 Intake Total 2540 940 Output Total 930 580 Balance 1610 360 Intake: IV 100 Piperacillin-Tazobactam 3 100 .375 gm In Sodium Chloride 0.9% 100 ml @ 25 mls/hr IVPB Q8H [facility] Rx#: [id number] Intake, IV Titration 600 Amount Mvi, Adult No.4 with Vit 600 K 10 ml Trace (Conc-1Ml/ Dose) 1 ml Sodium Acetate 56 meq Potassium Acetate 40 meq Magnesium Sulfate gm 1 gm Calcium Gluconate 1 gm In Amino Acids 5 %/Dextrose 20 % 1 ,000 ml @ 54 mls/hr IV . [id number] [facility] Rx#:[id number] Oral 2540 240 Output: Drainage 105 30 Abdomen 105 30 Urine 625 550 Stool 200 Other: Voiding Method Indwelling Catheter # Voids 1 ABP, PAP, CO, CI - Last Documented Arterial Blood Pressure 139/52 - Exam General: [Patient awake and oriented x 3, sitting up in bed, no acute distress. HEENT: [PERRL. EOMI. No pharyngeal erythema or exudate.] Neck: Supple, no JVD Cardiac: Heart regular in rate and rhythm. No murmur Lungs: [Unlabored, equal air entry, clear to auscultation bilaterally.] Abdomen: Soft, functioning colostomy/MILADIS drain with serosanguineous drainage. bowel sounds present. Extremes: Upper extremity edema,no cyanosis, wearing offloading boots. Skin: [No rash, warm and dry.] Neurologic: Cranial nerves II through XII grossly intact, generalized weakness. - Labs CBC & Chem 7: 01/01/25 05:26 01/01/25 05:26 Labs: Abnormal Lab Results - Last 24 Hours (Table) 12/31/24 12/31/24 12/31/24 Range/Units 05:47 12:24 16:56 RBC 3.26 L (3.80-5.40) m/uL Hgb 9.5 L (11.4-16.0) gm/dL Hct 29.5 L (34.0-46.0) % RDW 15.7 H (11.5-15.5) % Plt Count 37 L (150-450) k/uL Sodium (137-145) mmol/L Potassium (3.5-5.1) mmol/L BUN (7-17) mg/dL Glucose (74-99) mg/dL POC Glucose (mg/dL) 279 H 286 H (70-110) mg/dL Phosphorus (2.5-4.5) mg/dL 12/31/24 01/01/25 01/01/25 Range/Units 20:12 05:26 07:07 RBC (3.80-5.40) m/uL Hgb (11.4-16.0) gm/dL Hct (34.0-46.0) % RDW (11.5-15.5) % Plt Count (150-450) k/uL Sodium 131 L (137-145) mmol/L Potassium 3.4 L (3.5-5.1) mmol/L BUN 34 H (7-17) mg/dL Glucose 230 H (74-99) mg/dL POC Glucose (mg/dL) 221 H 250 H (70-110) mg/dL Phosphorus 2.4 L (2.5-4.5) mg/dL Assessment and Plan Assessment: (1) sepsis, septic shock secondary to pneumoperitoneum, intra-abdominal abscesses with sigmoid diverticulitis (2) Bacteremia, E. coli Current Visit: Yes Status: Acute Code(s): R78.81 - BACTEREMIA SNOMED Code(s): 1389155 (3) Pancytopenia Current Visit: Yes Status: Acute Code(s): D61.818 - OTHER PANCYTOPENIA SNOMED Code(s): 316508141 (4) Perforated diverticulum Current Visit: Yes Status: Acute Priority: High Code(s): K57.80 - DVTRCLI OF INTEST, PART UNSP, W PERF AND ABSCESS W/O BLEED SNOMED Code(s): 94622820 (5) Perforation of sigmoid colon due to diverticulitis, status post sigmoid col ectomy, drainage of interloop abscess, proximal laminectomy on 12/26/2024 with right femoral IVC placed on 12/28/2024 Current Visit: Yes Status: Acute Code(s): K57.20 - DVTRCLI OF LG INT W PERFORATION AND ABSCESS W/O BLEEDING SNOMED Code(s): 7207413045447099 (6) Pneumoperitoneum Current Visit: Yes Status: Acute Code(s): K66.8 - OTHER SPECIFIED DISORDERS OF PERITONEUM SNOMED Code(s): 38702710 (7) S/P colectomy Current Visit: Yes Status: Acute Code(s): Z90.49 - ACQUIRED ABSENCE OF OTHER SPECIFIED PARTS OF DIGESTIVE TRACT SNOMED Code(s): 787116294 (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 Current Visit: Yes Status: Acute Code(s): E11.59 - TYPE 2 DIABETES MELLITUS WITH OTH CIRCULATORY COMPLICATIONS SNOMED Code(s): 37483919 (9) Coronary artery 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 Current Visit: No Status: Acute Code(s): E11.59 - TYPE 2 DIABETES MELLITUS WITH OTH CIRCULATORY COMPLICATIONS; I25.10 - ATHSCL HEART DISEASE OF [place] CORONARY ARTERY W/O ANG PCTRS SNOMED Code(s): 07774019491577590 (10) Deep vein thrombosis (DVT) of lower extremity Current Visit: No Status: Acute Priority: Medium Code(s): I82.409 - ACUTE EMBOLISM AND THOMBOS UNSP DEEP VN UNSP LOWER EXTREMITY SNOMED Code(s): 774811304 (11) H/O four vessel coronary artery bypass graft Current Visit: No Status: Acute Code(s): Z95.1 - PRESENCE OF AORTOCORONARY BYPASS GRAFT SNOMED Code(s): 916930548 (12) Hypertension Current Visit: No Status: Acute Code(s): I10 - ESSENTIAL (PRIMARY) HYPERTENSION SNOMED Code(s): 64328939 (13) Multiple myeloma Current Visit: No Status: Acute Code(s): C90.00 - MULTIPLE MYELOMA NOT HAVING ACHIEVED REMISSION SNOMED Code(s): 471150218 (14) acute on chronic blood loss anemia (15) thrombocytopenia Plan: Continue on current medication regimen ,monitoring and symptomatic treatment. Antibiotics as per infectious disease. Nutritional supplementation with TPN/lipids. Potassium supplemented. Pain management/diet advancement as per general surgery .HS Lantus added with close monitoring of Accu-Cheks. CBC pending,anticoagulation as per hematology; currently with femoral IVC filter. Maintain aggressive pulmonary toileting with incentive spirometer reinforced. PT/OT .Close monitoring of electrolytes, renal function and hemoglobin/platelets with repeat labs ordered for a.m. The impression and plan of care has been dictated as directed. : I performed a history and examination of this patient, discussed the same with the dictator. I agree with the dictator's note ,documented as a scribe. Any additional findings or plans will be noted.
[2025-01-01] MEDS: POTASSIUM CHLORIDE ER 20 MEQ TAB.ER PO STA (11:29)
[2025-01-01 12:57] LABS: Glucose,Whole Blood 257 mg/dL (70-110)
--- NOTE | 2025-01-01 13:20 | P.PN ---
Subjective Progress Note Date: 01/01/25 SURGICAL PROGRESS NOTE CHIEF COMPLAINT: Perforated diverticulitis with abscess HISTORY OF PRESENT ILLNESS: Patient currently on regular medical floor. She is sitting at bedside chair. She is tolerating the clear liquids. Her ostomy is functioning. Her pain is controlled. Denies any nausea or vomiting. Afebrile. WBC 6.0 Hgb 8.7 platelets 113 potassium 3.6. MILADIS drain 30 mL serosanguineous output PHYSICAL EXAM: VITAL SIGNS: Reviewed. GENERAL: Well-developed in no acute distress. ABDOMEN: Soft. Nondistended. Midline incision clean dry and intact. There is noted to be some serous drainage on the dressing. NEUROLOGIC: awake and alert ASSESSMENT: 1. Perforated diverticulitis with abscess 2. E. coli bacteremia 3. History of multiple myeloma 4. Hypokalemia resolved PLAN: -Advance diet to full liquids and advance as tolerated to consistent carbohydrate diet -Start to wean off TPN -Clean midline incision with chlorhexidine wipe daily -Continue antibiotics -Continue pain management -Encourage patient to ambulate -SCDs for DVT prophylaxis Physician Crystallographer note has been reviewed by physician. Signing provider agrees with the documented findings, assessment, and plan of care. Objective - Vital Signs Vital signs: Vital Signs Temp 97.8 F 01/01/25 07:25 Pulse 78 01/01/25 12:13 Resp 14 01/01/25 08:00 BP 159/81 01/01/25 07:25 Pulse Ox 100 01/01/25 01:34 FiO2 35 12/31/24 07:46 Intake & Output 12/31/24 01/01/25 01/01/25 18:59 06:59 18:59 Intake Total 2540 940 240 Output Total 930 580 230 Balance 1610 360 10 Intake: IV 100 Piperacillin-Tazobactam 3 100 .375 gm In Sodium Chloride 0.9% 100 ml @ 25 mls/hr IVPB Q8H [facility] Rx#: [id number] Intake, IV Titration 600 Amount Mvi, Adult No.4 with Vit 600 K 10 ml Trace (Conc-1Ml/ Dose) 1 ml Sodium Acetate 56 meq Potassium Acetate 40 meq Magnesium Sulfate gm 1 gm Calcium Gluconate 1 gm In Amino Acids 5 %/Dextrose 20 % 1 ,000 ml @ 54 mls/hr IV . [id number] [facility] Rx#:[id number] Oral 2540 240 240 Output: Drainage 105 30 30 Abdomen 105 30 30 Urine 625 550 Stool 200 200 Other: Voiding Method Indwelling Catheter Indwelling Catheter # Voids 1 ABP, PAP, CO, CI - Last Documented Arterial Blood Pressure 139/52 - Labs CBC & Chem 7: 01/01/25 05:26 01/01/25 10:45 Labs: Abnormal Lab Results - Last 24 Hours (Table) 12/31/24 12/31/24 12/31/24 Range/Units 05:47 16:56 20:12 RBC 3.26 L (3.80-5.40) m/uL Hgb 9.5 L (11.4-16.0) gm/dL Hct 29.5 L (34.0-46.0) % RDW 15.7 H (11.5-15.5) % Plt Count 37 L (150-450) k/uL Sodium (137-145) mmol/L Potassium (3.5-5.1) mmol/L BUN (7-17) mg/dL Glucose (74-99) mg/dL POC Glucose (mg/dL) 286 H 221 H (70-110) mg/dL Phosphorus (2.5-4.5) mg/dL 01/01/25 01/01/25 01/01/25 Range/Units 05:26 05:26 07:07 RBC 3.00 L (3.80-5.40) m/uL Hgb 8.7 L (11.4-16.0) gm/dL Hct 27.0 L (34.0-46.0) % RDW 16.1 H (11.5-15.5) % Plt Count 113 L D (150-450) k/uL Sodium 131 L (137-145) mmol/L Potassium 3.4 L (3.5-5.1) mmol/L BUN 34 H (7-17) mg/dL Glucose 230 H (74-99) mg/dL POC Glucose (mg/dL) 250 H (70-110) mg/dL Phosphorus 2.4 L (2.5-4.5) mg/dL 01/01/25 Range/Units 12:55 RBC (3.80-5.40) m/uL Hgb (11.4-16.0) gm/dL Hct (34.0-46.0) % RDW (11.5-15.5) % Plt Count (150-450) k/uL Sodium (137-145) mmol/L Potassium (3.5-5.1) mmol/L BUN (7-17) mg/dL Glucose (74-99) mg/dL POC Glucose (mg/dL) 257 H (70-110) mg/dL Phosphorus (2.5-4.5) mg/dL
--- NOTE | 2025-01-01 14:10 | P.PN ---
Subjective Progress Note Date: 01/01/25 Pt lethargic at today's visit. Denies pain. Denies n/v. Pt afebrile, continues on zosyn. Hgb 6.0, hgb 8.7, plt 113 Objective - Vital Signs Vital signs: Vital Signs Temp 97.8 F 01/01/25 07:25 Pulse 77 01/01/25 09:03 Resp 14 01/01/25 08:00 BP 159/81 01/01/25 07:25 Pulse Ox 100 01/01/25 01:34 FiO2 35 12/31/24 07:46 Intake & Output 12/31/24 01/01/25 01/01/25 18:59 06:59 18:59 Intake Total 2540 940 240 Output Total 930 580 230 Balance 1610 360 10 Intake: IV 100 Piperacillin-Tazobactam 3 100 .375 gm In Sodium Chloride 0.9% 100 ml @ 25 mls/hr IVPB Q8H [facility] Rx#: [id number] Intake, IV Titration 600 Amount Mvi, Adult No.4 with Vit 600 K 10 ml Trace (Conc-1Ml/ Dose) 1 ml Sodium Acetate 56 meq Potassium Acetate 40 meq Magnesium Sulfate gm 1 gm Calcium Gluconate 1 gm In Amino Acids 5 %/Dextrose 20 % 1 ,000 ml @ 54 mls/hr IV . [id number] [facility] Rx#:[id number] Oral 2540 240 240 Output: Drainage 105 30 30 Abdomen 105 30 30 Urine 625 550 Stool 200 200 Other: Voiding Method Indwelling Catheter Indwelling Catheter # Voids 1 ABP, PAP, CO, CI - Last Documented Arterial Blood Pressure 139/52 - Constitutional General appearance: Present: no acute distress - EENT ENT: Present: hearing grossly normal - Respiratory Details: breathing is even and unlabored - Cardiovascular Details: skin warm and dry - Integumentary Integumentary: Absent: cyanotic - Neurologic Neurologic Comment(s): lethargic - Musculoskeletal Musculoskeletal: Present: generalized weakness - Labs CBC & Chem 7: 01/01/25 05:26 01/01/25 10:45 Labs: Abnormal Lab Results - Last 24 Hours (Table) 12/31/24 12/31/24 12/31/24 Range/Units 05:47 12:24 16:56 RBC 3.26 L (3.80-5.40) m/uL Hgb 9.5 L (11.4-16.0) gm/dL Hct 29.5 L (34.0-46.0) % RDW 15.7 H (11.5-15.5) % Plt Count 37 L (150-450) k/uL Sodium (137-145) mmol/L Potassium (3.5-5.1) mmol/L BUN (7-17) mg/dL Glucose (74-99) mg/dL POC Glucose (mg/dL) 279 H 286 H (70-110) mg/dL Phosphorus (2.5-4.5) mg/dL 12/31/24 01/01/25 01/01/25 Range/Units 20:12 05:26 05:26 RBC 3.00 L (3.80-5.40) m/uL Hgb 8.7 L (11.4-16.0) gm/dL Hct 27.0 L (34.0-46.0) % RDW 16.1 H (11.5-15.5) % Plt Count 113 L D (150-450) k/uL Sodium 131 L (137-145) mmol/L Potassium 3.4 L (3.5-5.1) mmol/L BUN 34 H (7-17) mg/dL Glucose 230 H (74-99) mg/dL POC Glucose (mg/dL) 221 H (70-110) mg/dL Phosphorus 2.4 L (2.5-4.5) mg/dL 01/01/25 Range/Units 07:07 RBC (3.80-5.40) m/uL Hgb (11.4-16.0) gm/dL Hct (34.0-46.0) % RDW (11.5-15.5) % Plt Count (150-450) k/uL Sodium (137-145) mmol/L Potassium (3.5-5.1) mmol/L BUN (7-17) mg/dL Glucose (74-99) mg/dL POC Glucose (mg/dL) 250 H (70-110) mg/dL Phosphorus (2.5-4.5) mg/dL Assessment and Plan (1) Abdominal pain Current Visit: Yes Status: Acute Code(s): R10.9 - UNSPECIFIED ABDOMINAL PAIN SNOMED Code(s): 90401802 (2) Bacteremia Current Visit: Yes Status: Acute Code(s): R78.81 - BACTEREMIA SNOMED Code(s): 9538978 (3) Pancytopenia Current Visit: Yes Status: Acute Code(s): D61.818 - OTHER PANCYTOPENIA SNOMED Code(s): 925679585 (4) Perforated diverticulum Current Visit: Yes Status: Acute Priority: High Code(s): K57.80 - DVTRCLI OF INTEST, PART UNSP, W PERF AND ABSCESS W/O BLEED SNOMED Code(s): 27153879 (5) Multiple myeloma Current Visit: No Status: Chronic Priority: Medium Code(s): C90.00 - MULTIPLE MYELOMA NOT HAVING ACHIEVED REMISSION SNOMED Code(s): 022949460 Plan: Abd pain, diverticulitis with perforation -CT AP showing acute diverticulitis of the transverse colon with perforation -S/P sigmoid colectomy, abscess drainage and proximal omentectomy, neg for malignant process. -Surgical mgmt post op Bactremia -Blood culture positive for E. coli. Patient started on IV antibiotics. -ID following LLE DVT: -Recent diagnosis of LLE DVT. Was started on Eliquis -Due to drop in hgb, and concern for possible bleed, ASA and eliquis held -Vascular Surgery has placed IVC filter -Hope to get pt back on anticoagulation once she is stable Multiple myeloma -Oncology history as dictated in consult -She is s/p cycle 2, day 8 of RVD. She will not complete C2 D15. Her treatment will be postponed until she is adequately recovered and healed from surgery. -F/U appt with Primary Onc to assess her prior to resuming treatment-appt in DC plan
--- NOTE | 2025-01-01 14:19 | P.PN ---
Subjective Progress Note Date: 01/01/25 This is a 79-year-old female patient with known history of coronary artery disease and previous bypass surgery and known history of diabetes mellitus type 2 and multiple myeloma and the patient was diagnosed having multiple myeloma back in May 2024 and the patient had significant back pain with pathologic bone marrow infiltration throughout the lumbar spine and pelvic area with a pathologic fracture of the L2 vertebral body and osseous extension of the tumor causing left neural foraminal narrowing at the level of L1-L2 and L2-L3. The patient was started on treatment with palliative radiation therapy and following that she was started on RVD treatment and she completed cycle 2 on 12/24/2024. Subsequently, the patient gets hospitalized for an extensive left lower extremity DVT involving a clot extending from the left iliac to the popliteal vein and the patient was started on anticoagulation with Eliquis. She was discharged to be readmitted for abdominal pain and this was assumed to be rel ated to constipation. She was discharged to be readmitted for ongoing abdominal pain and the patient was diagnosed having acute diverticulitis. Yesterday, the patient was taken to the operating room as the follow-up CAT scan of the abdomen showed a complicated diverticulitis of the sigmoid colon with perforation and pneumoperitoneum. There was 8 cm gas/fluid collection consistent with an absces s. She also had cholelithiasis and diffuse anasarca. In the operating room, the patient was found to have an abdominal abscess that was drained. The patient had sigmoid colectomy and diverting colostomy. Postop, the patient was kept intubated and placed on the mechanical ventilator and she was transferred to the ICU. Noted her anticoagulation is currently on hold and she is not showing any signs of bleeding. He is currently off anticoagulants. Vascular surgery has seen the patient and patient is being contemplated for IVC filter placement. Platelet counts are also low. This morning, she is on propofol at rate of 30, she is on assist-control mode at rate of 16, tidal volume of 350, F iO2 40% with a PEEP of 5. Blood gas showed a pH of 7.48 with a pCO2 of 30 and pO2 175. NG tube output is minimal and fluid balance is +2.7 L of the patient received several fluid boluses yesterday. She remains on Alvin-Synephrine at 1.3 mcg. Producing urine output. White cell count is 14.7, hemoglobin is 8.7 and platelet count is at 73. The non-anion gap metabolic acidosis is improved and the patient serum bicarb is up to 22. Sodium levels at 127. Potassium is at 4.2. LFTs are normal. Blood sugar is at 363. Chest x-ray showed atelectatic changes lung base bilaterally. Orotracheal tube is in good location. Postthoracotomy changes related to previous heart surgery and some pulm vascular congestion is also present. The patient is currently on IV Zosyn. She will be started on TPN for nutritional support within the next 24 to 48 hours. Blood cultures positive for E. coli. Patient was seen today on 12/28/2024, patient remains in the ICU, she is on mechanical ventilation, and the patient just came back from IVC filter placement by vascular surgery. Patient is on assist-control rate of 16 tidal volume 350 FiO2 35% and PEEP of 5 ABG showed a pO2 of 150 pCO2 33 pH of 7.45 hence patient was transitioned to assist-control rate of 12 tidal volume 400 FiO2 30% and PEEP of 5 patient is also receiving a unit of packed RBCs for hemoglobin of 6.7. Requiring multiple drips including norepinephrine at 0.02 mcg/kg/min she is on TPN at 30 cc/h propofol 40 mg/kg/min and amiodarone 0.5 mg/min. Patient is also receiving insulin at 11.1 units/h. Her Solu-Cortef dose was cut down and the patient remains empirically on Zosyn. Today is postoperative day #2, patient is status post colectomy with ostomy and MILADIS drain placement. Again her presentation was mostly a presentation of abdominal sepsis. Chest x-ray today showed mostly bibasilar atelectasis., No evidence of pulmonary edema., And I doubt pneumonia. WBC count today 13.2 hemoglobin 6.7 platelets are 47,000's. Sodium is 128 potassium 2.9 chloride 98 BUN 31 creatinine 1.01 patient has received a total of 3 units of packed RBCs since admission. Blood cultures are positive for E. coli. Sensitive to Zosyn Seen today on 12/29/2024, remains in the ICU, intubated and mechanically ventilated, on assist-control mode of mechanical ventilation, rate 12 tidal volume 400 FiO2 30% PEEP of 5 ABG showed a pO2 of 114 pCO2 3 0 pH of 7.44 patient is requiring propofol at 45 mcg/kg/min she is not requiring any pressors today, patient is on TPN at 33 cc/h and IV fluid 0.9 normal saline at 75 cc/h. Her surgical site seems to be intact, ostomy seems to be pink, minimal bloody drainage into the ostomy bag. Patient is sedated, however I plan to discontinue propofol today and give the patient a weaning trial on Precedex. Her WBC count is 9.2 hemoglobin 8.7. Basic metabolic profile is relatively normal except for sodium of 128 renal profile is normal, chest x-ray showed mostly bibasilar atelectasis, no clear-cut evidence of infiltrate. Patient was seen today on 12/30/2024, patient remains in the ICU, however the patient was extubated yesterday, and extubation was successful. Patient is now on 2 L nasal cannula, she was initially extubated to BiPAP /5/35%, patient is awake, alert oriented x 3, does not seem to be in any distress, remains on TPN she is also on lipids. Her ostomy seems to be functioning quite well, her nasogastric tube was removed, my plan is to transfer the patient today to regular medical floor/[facility]. WBC count today is 9.3 hemoglobin 9.2 platelets remain low at 50,000 but improving, basic metabolic profile is normal BUN is 30 creatinine 0.96. Patient remains on hydrocortisone 50 mg IV push every 12 hours, remains on Dilaudid as needed, patient is also on Zosyn and on Protonix. The patient is seen today December 31, 2024 in follow-up on the regular medical floor. She was transferred out of the intensive care unit yesterday. She is resting in bed. Awake and alert in no acute distress. Maintaining good O2 saturations in the 90s on 2 L/min per nasal cannula. She is afebrile. Hemodynamically stable. She did wear BiPAP last evening 09/17 and 35% FiO2. She is being nourished with TPN and lipids. Sodium 130. Potassium 3.1. Bicarb 35. Creatinine 0.79. Glucose 244. Ostomy functioning. He is tolerating a clear liquid diet. Today January 01, 2025 in follow-up on the regular medical floor. She is currently resting in bed. Awake and alert in no acute distress. Maintaining good O2 saturations in the 90s on 2 L/min per nasal cannula. She is wearing the BiPAP at night 12/5 and 35% FiO2. Her diet has been been advanced to full liquids. Ostomy functioning. She remains on TPN at 54 mL/h. Continued on Zosyn. Continued on Solu-Cortef. She needs increased encouragement regarding the use of the incentive spirometer. White count 6.0. Hemoglobin 8.7. Platelets 113. Sodium 131. Potassium 3.6. Bicarb 26. BUN 34. Creatinine 0.66. Glucose 230. Objective - Vital Signs Vital signs: Vital Signs Temp 98.0 F 01/01/25 13:44 Pulse 75 01/01/25 13:44 Resp 16 01/01/25 13:44 BP 136/76 01/01/25 13:44 Pulse Ox 100 01/01/25 13:44 FiO2 35 12/31/24 07:46 Intake & Output 12/31/24 01/01/25 01/01/25 18:59 06:59 18:59 Intake Total 2540 940 598 Output Total 930 580 230 Balance 1610 360 368 Weight 86.8 kg Intake: IV 100 Piperacillin-Tazobactam 3 100 .375 gm In Sodium Chloride 0.9% 100 ml @ 25 mls/hr IVPB Q8H [facility] Rx#: [id number] Intake, IV Titration 600 Amount Mvi, Adult No.4 with Vit 600 K 10 ml Trace (Conc-1Ml/ Dose) 1 ml Sodium Acetate 56 meq Potassium Acetate 40 meq Magnesium Sulfate gm 1 gm Calcium Gluconate 1 gm In Amino Acids 5 %/Dextrose 20 % 1 ,000 ml @ 54 mls/hr IV . [id number] [facility] Rx#:[id number] Oral 2540 240 598 Output: Drainage 105 30 30 Abdomen 105 30 30 Urine 625 550 Stool 200 200 Other: Voiding Method Indwelling Catheter Indwelling Catheter # Voids 1 ABP, PAP, CO, CI - Last Documented Arterial Blood Pressure 139/52 - Exam GENERAL EXAM: Alert, pleasant, weak 79-year-old female, on 2 L nasal cannula, comfortable in no apparent distress. HEAD: Normocephalic. EYES: Normal reaction of pupils, equal size. NOSE: Clear with pink turbinates. THROAT: No erythema or exudates. NECK: No masses, no JVD. CHEST: No chest wall deformity. LUNGS: Equal air entry with no crackles, wheeze, rhonchi or dullness. CVS: S1 and S2 normal with no audible murmur, regular rhythm. ABDOMEN: Ostomy functioning. No hepatosplenomegaly, normal bowel sounds, no guarding or rigidity. SPINE: No scoliosis or deformity SKIN: No rashes CENTRAL NERVOUS SYSTEM: No focal deficits, tone is normal in all 4 extremities. EXTREMITIES: There is no peripheral edema. No clubbing, no cyanosis. Peripheral pulses are intact. - Labs CBC & Chem 7: 01/01/25 05:26 01/01/25 10:45 Labs: Abnormal Lab Results - Last 24 Hours (Table) 12/31/24 12/31/24 01/01/25 Range/Units 16:56 20:12 05:26 RBC (3.80-5.40) m/uL Hgb (11.4-16.0) gm/dL Hct (34.0-46.0) % RDW (11.5-15.5) % Plt Count (150-450) k/uL Sodium 131 L (137-145) mmol/L Potassium 3.4 L (3.5-5.1) mmol/L BUN 34 H (7-17) mg/dL Glucose 230 H (74-99) mg/dL POC Glucose (mg/dL) 286 H 221 H (70-110) mg/dL Phosphorus 2.4 L (2.5-4.5) mg/dL 01/01/25 01/01/25 01/01/25 Range/Units 05:26 07:07 12:55 RBC 3.00 L (3.80-5.40) m/uL Hgb 8.7 L (11.4-16.0) gm/dL Hct 27.0 L (34.0-46.0) % RDW 16.1 H (11.5-15.5) % Plt Count 113 L D (150-450) k/uL Sodium (137-145) mmol/L Potassium (3.5-5.1) mmol/L BUN (7-17) mg/dL Glucose (74-99) mg/dL POC Glucose (mg/dL) 250 H 257 H (70-110) mg/dL Phosphorus (2.5-4.5) mg/dL Assessment and Plan Assessment: Septic shock secondary to pneumoperitoneum and intra-abdominal abscesses with sigmoid diverticulitis Acute hypoxic respiratory failure secondary to abdominal sepsis and septic shock Bacteremia secondary to E. coli secondary to above. Remains on Zosyn Acute sigmoid diverticulitis with pneumoperitoneum requiring exploratory laparotomy, drainage of interloop abscess and sigmoid colectomy with diverting colostomy postoperative day #6. Pathology negative for malignancy Lower extremity DVT/left lower extremity DVT requiring a IVC filter placement History of multiple myeloma with history of pathological fractures L2 vertebral body Type 2 diabetes Coronary artery disease and previous CABG Acute kidney injury secondary to abdominal sepsis Thrombocytopenia, multifactorial but mostly now related to sepsis. 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 Number of minutes spent on the visit: 10 Dictation was produced using [employer] dictation software. Please excuse any grammatical, word or spelling errors.
--- NOTE | 2025-01-01 15:51 | P.PN ---
Subjective Progress Note Date: 01/01/25 Principal diagnosis: Reason for follow-up is bacteremia perforated diverticulitis and abscess Patient is a 79-year-old female with a past medical history significant for Coronary Artery Disease (CAD), Cancer, Diabetes Mellitus, Hyperlipidemia, Hypertension, Thyroid Disorder presenting to the hospital for evaluation of abnormal CT that was done for abdominal pain with concern for perforated sigmoid diverticulitis did have a positive blood culture with E. coli probably this consultation.Patient is status post laparotomy sigmoid colectomy drainage of the interloop abscess and proximal omentectomy patient subsequent has been admitted to ICU on the vent. On today's evaluation that is 01/01/2025, the patient continues to be afebrile, the patient is on 2 L of flow oxygen and breathing comfortably, the Pt denies having any chest pain or cough, the patient abdominal pain is currently controlled nausea no vomiting. Patient white count 6.0, creatinine 0.66 sputum culture has been negative Objective - Vital Signs Vital signs: Vital Signs Temp 97.8 F 01/01/25 07:25 Pulse 77 01/01/25 09:03 Resp 14 01/01/25 07:25 BP 159/81 01/01/25 07:25 Pulse Ox 100 01/01/25 01:34 FiO2 35 12/31/24 07:46 Intake & Output 12/31/24 01/01/25 01/01/25 18:59 06:59 18:59 Intake Total 2540 940 240 Output Total 930 580 Balance 1610 360 240 Intake: IV 100 Piperacillin-Tazobactam 3 100 .375 gm In Sodium Chloride 0.9% 100 ml @ 25 mls/hr IVPB Q8H [facility] Rx#: [id number] Intake, IV Titration 600 Amount Mvi, Adult No.4 with Vit 600 K 10 ml Trace (Conc-1Ml/ Dose) 1 ml Sodium Acetate 56 meq Potassium Acetate 40 meq Magnesium Sulfate gm 1 gm Calcium Gluconate 1 gm In Amino Acids 5 %/Dextrose 20 % 1 ,000 ml @ 54 mls/hr IV . [id number] [facility] Rx#:[id number] Oral 2540 240 240 Output: Drainage 105 30 Abdomen 105 30 Urine 625 550 Stool 200 Other: Voiding Method Indwelling Catheter # Voids 1 ABP, PAP, CO, CI - Last Documented Arterial Blood Pressure 139/52 - Exam GENERAL DESCRIPTION: An elderly female intubated on the vent RESPIRATORY SYSTEM: Unlabored breathing , decreased breath sounds at bases HEART: S1 S2 regular rate and rhythm , ABDOMEN: Soft , mild tenderness EXTREMITIES: No edema feet - Labs CBC & Chem 7: 01/01/25 05:26 01/01/25 10:45 Labs: Abnormal Lab Results - Last 24 Hours (Table) 12/31/24 12/31/24 12/31/24 Range/Units 05:47 12:24 16:56 RBC 3.26 L (3.80-5.40) m/uL Hgb 9.5 L (11.4-16.0) gm/dL Hct 29.5 L (34.0-46.0) % RDW 15.7 H (11.5-15.5) % Plt Count 37 L (150-450) k/uL Sodium (137-145) mmol/L Potassium (3.5-5.1) mmol/L BUN (7-17) mg/dL Glucose (74-99) mg/dL POC Glucose (mg/dL) 279 H 286 H (70-110) mg/dL Phosphorus (2.5-4.5) mg/dL 12/31/24 01/01/25 01/01/25 Range/Units 20:12 05:26 05:26 RBC 3.00 L (3.80-5.40) m/uL Hgb 8.7 L (11.4-16.0) gm/dL Hct 27.0 L (34.0-46.0) % RDW 16.1 H (11.5-15.5) % Plt Count 113 L D (150-450) k/uL Sodium 131 L (137-145) mmol/L Potassium 3.4 L (3.5-5.1) mmol/L BUN 34 H (7-17) mg/dL Glucose 230 H (74-99) mg/dL POC Glucose (mg/dL) 221 H (70-110) mg/dL Phosphorus 2.4 L (2.5-4.5) mg/dL 01/01/25 Range/Units 07:07 RBC (3.80-5.40) m/uL Hgb (11.4-16.0) gm/dL Hct (34.0-46.0) % RDW (11.5-15.5) % Plt Count (150-450) k/uL Sodium (137-145) mmol/L Potassium (3.5-5.1) mmol/L BUN (7-17) mg/dL Glucose (74-99) mg/dL POC Glucose (mg/dL) 250 H (70-110) mg/dL Phosphorus (2.5-4.5) mg/dL Assessment and Plan (1) Perforation of sigmoid colon due to diverticulitis Current Visit: Yes Status: Acute Code(s): K57.20 - DVTRCLI OF LG INT W PERFORATION AND ABSCESS W/O BLEEDING SNOMED Code(s): 7621376621755301 (2) Bacteremia Current Visit: Yes Status: Acute Code(s): R78.81 - BACTEREMIA SNOMED Code(s): 2381180 Plan: 1patient with E. coli bacteremia source likely abdominal in this patient with evidence of abnormal CT with free air concerning for perforated diverticulitis but did not mention any abscess, patient did have a repeat CT that has been suggestive of perforated diverticulitis and abscess and patient status post laparotomy sigmoid colectomy drainage of the interloop abscess procedure completed on 12/26/2024 2patient is afebrile patient white count has normalized we will continue patient on Zosyn while inpatient however plan is to finish therapy with oral antibiotic on discharge Daily that Dictation was produced using [employer] dictation software. please excuse any grammatical, word or spelling errors Time with Patient: Less than 30
[2025-01-01 17:30] LABS: Glucose,Whole Blood 298 mg/dL (70-110)
[2025-01-01 19:56] LABS: Glucose,Whole Blood 277 mg/dL (70-110)
[2025-01-02 06:42] LABS: African American GFR (CKD) >90 (>60 ml/min/1.73 sqM); Anion Gap 5 mmol/L; Blood Urea Nitrogen 37 mg/dL (7-17); Calcium 8.4 mg/dL (8.4-10.2); Carbon Dioxide 24 mmol/L (22-30); Chloride 105 mmol/L (98-107); Glucose 207 mg/dL (74-99); Non-African American GFR(CKD) 88 (>60 ml/min/1.73 sqM); Phosphorus 2.4 mg/dL (2.5-4.5); Potassium 3.5 mmol/L (3.5-5.1); Sodium 134 mmol/L (137-145)
[2025-01-02 07:11] LABS: Glucose,Whole Blood 226 mg/dL (70-110)
[2025-01-02] MEDS: HYDROCORTISONE SUCCINATE 100 MG/2 ML VIAL IV SCH (07:56)
[2025-01-02 10:07] LABS: Basophils # (A) 0.01 X 10*3/uL (0.00-0.10); Basophils % (A) 0.2 %; Eosinophils # (A) 0.16 X 10*3/uL (0.04-0.35); Eosinophils % (A) 2.9 %; HCT 26.8 % (37.2-46.3); HGB 8.7 g/dL (12.0-15.0); Lymphocytes # (A) 0.35 X 10*3/uL (0.90-5.00); Lymphocytes % (A) 6.3 %; MCH 29.2 pg (27.0-32.0); MCHC 32.5 g/dL (32.0-37.0); MCV 89.9 FL (80.0-97.0); Mean Platelet Volume 11.5 FL (9.5-12.2); Monocytes # (A) 0.24 X 10*3/uL (0.20-1.00); Monocytes % (A) 4.3 %; NRBC Per 100 WBC 0 X 10*3/uL (0.00-0.01); Neutrophils # (A) 4.72 X 10*3/uL (1.80-7.70); Neutrophils % (A) 84.3 %; Platelet Count 136 X 10*3/uL (140-440); RBC 2.98 X 10*6/uL (4.10-5.20); RDW 16.1 % (11.5-14.5); WBC 5.59 X 10*3/uL (4.50-10.00)
--- NOTE | 2025-01-02 10:20 | P.PN ---
Subjective Progress Note Date: 01/02/25 Principal diagnosis: Diverticulitis Patient complains of weakness. Was having difficulty feeding herself today. Mild discomfort periumbilical she says. She is quite anxious to go home she says. She is afebrile. Labs noted. Objective - Vital Signs Vital signs: Vital Signs Temp 98.0 F 01/02/25 07:07 Pulse 72 01/02/25 07:44 Resp 20 01/02/25 07:07 BP 158/78 01/02/25 07:07 Pulse Ox 100 01/02/25 07:07 FiO2 35 12/31/24 07:46 Intake & Output 01/01/25 01/02/25 01/02/25 18:59 06:59 18:59 Intake Total 2338 748 Output Total 1435 920 Balance 903 -172 Weight 86.8 kg Intake: IV 100 Piperacillin-Tazobactam 3 100 .375 gm In Sodium Chloride 0.9% 100 ml @ 25 mls/hr IVPB Q8H [facility] Rx#: [id number] Intake, IV Titration 648 Amount Mvi, Adult No.4 with Vit 648 K 10 ml Trace (Conc-1Ml/ Dose) 1 ml Sodium Acetate 66 meq Potassium Phosphate 6 mmol Potassium Acetate 40 meq Magnesium Sulfate gm 1 gm Calcium Gluconate 1 gm In Amino Acids 5 %/ Dextrose 20 % 1,000 ml @ 54 mls/hr IV .[id number] [facility] Rx#:[id number] Oral 2338 Output: Drainage 35 20 Abdomen 35 20 Urine 1000 400 Stool 400 500 Other: Voiding Method Indwelling Catheter Indwelling Catheter Indwelling Catheter ABP, PAP, CO, CI - Last Documented Arterial Blood Pressure 139/52 - Exam Abdomen: Soft, nondistended, mild incisional tenderness. Mild serous drainage from incision, ostomy functioning - Labs CBC & Chem 7: 01/02/25 05:38 01/02/25 05:38 Labs: Abnormal Lab Results - Last 24 Hours (Table) 01/01/25 01/01/25 01/01/25 Range/Units 12:55 17:28 19:50 RBC (4.10-5.20) X 10*6/uL Hgb (12.0-15.0) g/dL Hct (37.2-46.3) % RDW (11.5-14.5) % Plt Count (140-440) X 10*3/uL Immature Gran # (0.00-0.04) X 10*3/uL Lymphocytes # (0.90-5.00) X 10*3/uL Sodium (137-145) mmol/L BUN (7-17) mg/dL Glucose (74-99) mg/dL POC Glucose (mg/dL) 257 H 298 H 277 H (70-110) mg/dL Phosphorus (2.5-4.5) mg/dL 01/02/25 01/02/25 01/02/25 Range/Units 05:38 05:38 07:10 RBC 2.98 L (4.10-5.20) X 10*6/uL Hgb 8.7 L (12.0-15.0) g/dL Hct 26.8 L (37.2-46.3) % RDW 16.1 H (11.5-14.5) % Plt Count 136 L (140-440) X 10*3/uL Immature Gran # 0.11 H (0.00-0.04) X 10*3/uL Lymphocytes # 0.35 L (0.90-5.00) X 10*3/uL Sodium 134 L (137-145) mmol/L BUN 37 H (7-17) mg/dL Glucose 207 H (74-99) mg/dL POC Glucose (mg/dL) 226 H (70-110) mg/dL Phosphorus 2.4 L (2.5-4.5) mg/dL Assessment and Plan Plan: Patient remains weak. Continue physical therapy. Continue diet as tolerated. Discussed with nursing staff to try to have an aide assist with meals. Tentative plan for transfer to [facility] on Saturday. Continue antibiotics.
--- NOTE | 2025-01-02 10:21 | P.PN ---
Subjective Progress Note Date: 01/02/25 Principal diagnosis: . Perforated diverticulum , complicated by multiple myeloma, acute renal injury, status post bowel resection with colostomy Status post resected bowel secondary to perforated diverticulum postop day 5 patient awake alert oriented x 3 patient is in better spirits bonding appropriately is drinking a limited clear diet to be advanced as tolerated Objective - Vital Signs Vital signs: Vital Signs Temp 98.0 F 01/02/25 07:07 Pulse 72 01/02/25 07:44 Resp 20 01/02/25 07:07 BP 158/78 01/02/25 07:07 Pulse Ox 100 01/02/25 07:07 FiO2 35 12/31/24 07:46 Intake & Output 01/01/25 01/02/25 01/02/25 18:59 06:59 18:59 Intake Total 2338 748 Output Total 1435 920 Balance 903 -172 Weight 86.8 kg Intake: IV 100 Piperacillin-Tazobactam 3 100 .375 gm In Sodium Chloride 0.9% 100 ml @ 25 mls/hr IVPB Q8H [facility] Rx#: [id number] Intake, IV Titration 648 Amount Mvi, Adult No.4 with Vit 648 K 10 ml Trace (Conc-1Ml/ Dose) 1 ml Sodium Acetate 66 meq Potassium Phosphate 6 mmol Potassium Acetate 40 meq Magnesium Sulfate gm 1 gm Calcium Gluconate 1 gm In Amino Acids 5 %/ Dextrose 20 % 1,000 ml @ 54 mls/hr IV .[id number] [facility] Rx#:[id number] Oral 2338 Output: Drainage 35 20 Abdomen 35 20 Urine 1000 400 Stool 400 500 Other: Voiding Method Indwelling Catheter Indwelling Catheter Indwelling Catheter ABP, PAP, CO, CI - Last Documented Arterial Blood Pressure 139/52 - Exam General: [Patient awake, alert oriented x 3 vital signs are stable patient is afebrile currently on TPN HEENT: [PERRL. EOMI. No pharyngeal erythema or exudate.] Neck: [No adenopathy.] Cardiac: [Heart regular in rate and rhythm. No S3. No S4. No clicks, rubs. No murmur.] Lungs: [Clear to auscultation bilaterally.] Abdomen: [No mass. No organomegaly. Bowel sounds presnt and normoactive in all 4 quadrants.] Ostomy site clean and dry stool noted in pouch Extremes: [No edema no cyanosis no claudication normal pulses] : normal female Musculoskeletal: [No joint erythema, edema or tenderness.] Skin: [No rash.] Neurologic: [No lateralizing deficits. CN II - XII grossly intact.] Lymphatic: [No adenopathy.] - Labs CBC & Chem 7: 01/02/25 05:38 01/02/25 05:38 Labs: Abnormal Lab Results - Last 24 Hours (Table) 01/01/25 01/01/25 01/01/25 Range/Units 12:55 17:28 19:50 RBC (4.10-5.20) X 10*6/uL Hgb (12.0-15.0) g/dL Hct (37.2-46.3) % RDW (11.5-14.5) % Plt Count (140-440) X 10*3/uL Immature Gran # (0.00-0.04) X 10*3/uL Lymphocytes # (0.90-5.00) X 10*3/uL Sodium (137-145) mmol/L BUN (7-17) mg/dL Glucose (74-99) mg/dL POC Glucose (mg/dL) 257 H 298 H 277 H (70-110) mg/dL Phosphorus (2.5-4.5) mg/dL 01/02/25 01/02/25 01/02/25 Range/Units 05:38 05:38 07:10 RBC 2.98 L (4.10-5.20) X 10*6/uL Hgb 8.7 L (12.0-15.0) g/dL Hct 26.8 L (37.2-46.3) % RDW 16.1 H (11.5-14.5) % Plt Count 136 L (140-440) X 10*3/uL Immature Gran # 0.11 H (0.00-0.04) X 10*3/uL Lymphocytes # 0.35 L (0.90-5.00) X 10*3/uL Sodium 134 L (137-145) mmol/L BUN 37 H (7-17) mg/dL Glucose 207 H (74-99) mg/dL POC Glucose (mg/dL) 226 H (70-110) mg/dL Phosphorus 2.4 L (2.5-4.5) mg/dL Assessment and Plan (1) Abdominal pain Current Visit: Yes Status: Acute Code(s): R10.9 - UNSPECIFIED ABDOMINAL PAIN SNOMED Code(s): 77123614 (2) Bacteremia Current Visit: Yes Status: Acute Code(s): R78.81 - BACTEREMIA SNOMED Code(s): 8873122 (3) Pancytopenia Current Visit: Yes Status: Acute Code(s): D61.818 - OTHER PANCYTOPENIA SNOMED Code(s): 323936795 (4) Perforated diverticulum Current Visit: Yes Status: Acute Priority: High Code(s): K57.80 - DVTRCLI OF INTEST, PART UNSP, W PERF AND ABSCESS W/O BLEED SNOMED Code(s): 01885861 (5) Perforation of sigmoid colon due to diverticulitis Current Visit: Yes Status: Acute Code(s): K57.20 - DVTRCLI OF LG INT W PERFORATION AND ABSCESS W/O BLEEDING SNOMED Code(s): 9883834722361371 (6) Pneumoperitoneum Current Visit: Yes Status: Acute Code(s): K66.8 - OTHER SPECIFIED DISORDERS OF PERITONEUM SNOMED Code(s): 83802176 (7) S/P colectomy Current Visit: Yes Status: Acute Code(s): Z90.49 - ACQUIRED ABSENCE OF OTHER SPECIFIED PARTS OF DIGESTIVE TRACT SNOMED Code(s): 888601854 (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 Current Visit: Yes Status: Acute Code(s): E11.59 - TYPE 2 DIABETES MELLITUS WITH OTH CIRCULATORY COMPLICATIONS SNOMED Code(s): 71130955 (9) Coronary artery 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 Current Visit: No Status: Acute Code(s): E11.59 - TYPE 2 DIABETES MELLITUS WITH OTH CIRCULATORY COMPLICATIONS; I25.10 - ATHSCL HEART DISEASE OF [place] CORONARY ARTERY W/O ANG PCTRS SNOMED Code(s): 95747896371357310 (10) Deep vein thrombosis (DVT) of lower extremity Current Visit: No Status: Acute Priority: Medium Code(s): I82.409 - ACUTE EMBOLISM AND THOMBOS UNSP DEEP VN UNSP LOWER EXTREMITY SNOMED Code(s): 466677631 (11) H/O four vessel coronary artery bypass graft Current Visit: No Status: Acute Code(s): Z95.1 - PRESENCE OF AORTOCORONARY BYPASS GRAFT SNOMED Code(s): 217142187 (12) Hypertension Current Visit: No Status: Acute Code(s): I10 - ESSENTIAL (PRIMARY) HYPERTENSION SNOMED Code(s): 53202890 (13) Multiple myeloma Current Visit: No Status: Acute Code(s): C90.00 - MULTIPLE MYELOMA NOT HAVING ACHIEVED REMISSION SNOMED Code(s): 275825803 Plan: Continue current care PT OT evaluate and treat Encourage oral intake IV antibiotics Prealbumin to assess nutritional state Time with Patient: Greater than 30
[2025-01-02] MEDS: ONDANSETRON 4 MG/2 ML VIAL IVP PRN (10:51)
--- NOTE | 2025-01-02 11:15 | P.PN ---
Subjective Progress Note Date: 01/02/25 This is a 79-year-old female patient with known history of coronary artery disease and previous bypass surgery and known history of diabetes mellitus type 2 and multiple myeloma and the patient was diagnosed having multiple myeloma back in May 2024 and the patient had significant back pain with pathologic bone marrow infiltration throughout the lumbar spine and pelvic area with a pathologic fracture of the L2 vertebral body and osseous extension of the tumor causing left neural foraminal narrowing at the level of L1-L2 and L2-L3. The patient was started on treatment with palliative radiation therapy and following that she was started on RVD treatment and she completed cycle 2 on 12/24/2024. Subsequently, the patient gets hospitalized for an extensive left lower extremity DVT involving a clot extending from the left iliac to the popliteal vein and the patient was started on anticoagulation with Eliquis. She was discharged to be readmitted for abdominal pain and this was assumed to be rel ated to constipation. She was discharged to be readmitted for ongoing abdominal pain and the patient was diagnosed having acute diverticulitis. Yesterday, the patient was taken to the operating room as the follow-up CAT scan of the abdomen showed a complicated diverticulitis of the sigmoid colon with perforation and pneumoperitoneum. There was 8 cm gas/fluid collection consistent with an absces s. She also had cholelithiasis and diffuse anasarca. In the operating room, the patient was found to have an abdominal abscess that was drained. The patient had sigmoid colectomy and diverting colostomy. Postop, the patient was kept intubated and placed on the mechanical ventilator and she was transferred to the ICU. Noted her anticoagulation is currently on hold and she is not showing any signs of bleeding. He is currently off anticoagulants. Vascular surgery has seen the patient and patient is being contemplated for IVC filter placement. Platelet counts are also low. This morning, she is on propofol at rate of 30, she is on assist-control mode at rate of 16, tidal volume of 350, F iO2 40% with a PEEP of 5. Blood gas showed a pH of 7.48 with a pCO2 of 30 and pO2 175. NG tube output is minimal and fluid balance is +2.7 L of the patient received several fluid boluses yesterday. She remains on Alvin-Synephrine at 1.3 mcg. Producing urine output. White cell count is 14.7, hemoglobin is 8.7 and platelet count is at 73. The non-anion gap metabolic acidosis is improved and the patient serum bicarb is up to 22. Sodium levels at 127. Potassium is at 4.2. LFTs are normal. Blood sugar is at 363. Chest x-ray showed atelectatic changes lung base bilaterally. Orotracheal tube is in good location. Postthoracotomy changes related to previous heart surgery and some pulm vascular congestion is also present. The patient is currently on IV Zosyn. She will be started on TPN for nutritional support within the next 24 to 48 hours. Blood cultures positive for E. coli. Patient was seen today on 12/28/2024, patient remains in the ICU, she is on mechanical ventilation, and the patient just came back from IVC filter placement by vascular surgery. Patient is on assist-control rate of 16 tidal volume 350 FiO2 35% and PEEP of 5 ABG showed a pO2 of 150 pCO2 33 pH of 7.45 hence patient was transitioned to assist-control rate of 12 tidal volume 400 FiO2 30% and PEEP of 5 patient is also receiving a unit of packed RBCs for hemoglobin of 6.7. Requiring multiple drips including norepinephrine at 0.02 mcg/kg/min she is on TPN at 30 cc/h propofol 40 mg/kg/min and amiodarone 0.5 mg/min. Patient is also receiving insulin at 11.1 units/h. Her Solu-Cortef dose was cut down and the patient remains empirically on Zosyn. Today is postoperative day #2, patient is status post colectomy with ostomy and MILADIS drain placement. Again her presentation was mostly a presentation of abdominal sepsis. Chest x-ray today showed mostly bibasilar atelectasis., No evidence of pulmonary edema., And I doubt pneumonia. WBC count today 13.2 hemoglobin 6.7 platelets are 47,000's. Sodium is 128 potassium 2.9 chloride 98 BUN 31 creatinine 1.01 patient has received a total of 3 units of packed RBCs since admission. Blood cultures are positive for E. coli. Sensitive to Zosyn Seen today on 12/29/2024, remains in the ICU, intubated and mechanically ventilated, on assist-control mode of mechanical ventilation, rate 12 tidal volume 400 FiO2 30% PEEP of 5 ABG showed a pO2 of 114 pCO2 3 0 pH of 7.44 patient is requiring propofol at 45 mcg/kg/min she is not requiring any pressors today, patient is on TPN at 33 cc/h and IV fluid 0.9 normal saline at 75 cc/h. Her surgical site seems to be intact, ostomy seems to be pink, minimal bloody drainage into the ostomy bag. Patient is sedated, however I plan to discontinue propofol today and give the patient a weaning trial on Precedex. Her WBC count is 9.2 hemoglobin 8.7. Basic metabolic profile is relatively normal except for sodium of 128 renal profile is normal, chest x-ray showed mostly bibasilar atelectasis, no clear-cut evidence of infiltrate. Patient was seen today on 12/30/2024, patient remains in the ICU, however the patient was extubated yesterday, and extubation was successful. Patient is now on 2 L nasal cannula, she was initially extubated to BiPAP /5/35%, patient is awake, alert oriented x 3, does not seem to be in any distress, remains on TPN she is also on lipids. Her ostomy seems to be functioning quite well, her nasogastric tube was removed, my plan is to transfer the patient today to regular medical floor/[facility]. WBC count today is 9.3 hemoglobin 9.2 platelets remain low at 50,000 but improving, basic metabolic profile is normal BUN is 30 creatinine 0.96. Patient remains on hydrocortisone 50 mg IV push every 12 hours, remains on Dilaudid as needed, patient is also on Zosyn and on Protonix. The patient is seen today December 31, 2024 in follow-up on the regular medical floor. She was transferred out of the intensive care unit yesterday. She is resting in bed. Awake and alert in no acute distress. Maintaining good O2 saturations in the 90s on 2 L/min per nasal cannula. She is afebrile. Hemodynamically stable. She did wear BiPAP last evening 09/17 and 35% FiO2. She is being nourished with TPN and lipids. Sodium 130. Potassium 3.1. Bicarb 35. Creatinine 0.79. Glucose 244. Ostomy functioning. He is tolerating a clear liquid diet. Today January 01, 2025 in follow-up on the regular medical floor. She is currently resting in bed. Awake and alert in no acute distress. Maintaining good O2 saturations in the 90s on 2 L/min per nasal cannula. She is wearing the BiPAP at night 12/5 and 35% FiO2. Her diet has been been advanced to full liquids. Ostomy functioning. She remains on TPN at 54 mL/h. Continued on Zosyn. Continued on Solu-Cortef. She needs increased encouragement regarding the use of the incentive spirometer. White count 6.0. Hemoglobin 8.7. Platelets 113. Sodium 131. Potassium 3.6. Bicarb 26. BUN 34. Creatinine 0.66. Glucose 230. The patient is seen today January 02, 2025 in follow-up on the regular medical floor. She is currently sitting up in bed. Having breakfast. Denies any worsening shortness of breath, cough or congestion. Maintaining O2 saturations up to 100% on 2 L/min per nasal cannula. She has been afebrile. Hemodynamica lly stable. Still with some mild abdominal discomfort. She remains on TPN at 54 mLs per hour. Remains on Zosyn. Remains on Solu-Cortef. Continued on bronchodilators. Increased encouragement regarding the use of the incentive spirometer. White count 5.5. Hemoglobin 8.7. Platelets 136. Sodium 134. Potassium 3.5. Bicarb 24. BUN 37. Creatinine 0.61. Glucose 207. Objective - Vital Signs Vital signs: Vital Signs Temp 98.0 F 01/02/25 07:07 Pulse 72 01/02/25 07:44 Resp 20 01/02/25 07:07 BP 158/78 01/02/25 07:07 Pulse Ox 100 01/02/25 07:07 FiO2 35 12/31/24 07:46 Intake & Output 01/01/25 01/02/25 01/02/25 18:59 06:59 18:59 Intake Total 4908 748 Output Total 1435 920 Balance 903 -172 Weight 86.8 kg Intake: IV 100 Piperacillin-Tazobactam 3 100 .375 gm In Sodium Chloride 0.9% 100 ml @ 25 mls/hr IVPB Q8H [facility] Rx#: [id number] Intake, IV Titration 648 Amount Mvi, Adult No.4 with Vit 648 K 10 ml Trace (Conc-1Ml/ Dose) 1 ml Sodium Acetate 66 meq Potassium Phosphate 6 mmol Potassium Acetate 40 meq Magnesium Sulfate gm 1 gm Calcium Gluconate 1 gm In Amino Acids 5 %/ Dextrose 20 % 1,000 ml @ 54 mls/hr IV .[id number] [facility] Rx#:[id number] Oral 2338 Output: Drainage 35 20 Abdomen 35 20 Urine 1000 400 Stool 400 500 Other: Voiding Method Indwelling Catheter Indwelling Catheter Indwelling Catheter ABP, PAP, CO, CI - Last Documented Arterial Blood Pressure 139/52 - Exam GENERAL EXAM: Alert, weak 79-year-old female, sitting up in bed having breakfast, on 2 L nasal cannula, in no apparent distress. HEAD: Normocephalic. EYES: Normal reaction of pupils, equal size. NOSE: Clear with pink turbinates. THROAT: No erythema or exudates. NECK: No masses, no JVD. CHEST: No chest wall deformity. LUNGS: Equal air entry with no crackles, wheeze, rhonchi or dullness. CVS: S1 and S2 normal with no audible murmur, regular rhythm. ABDOMEN: Ostomy functioning. No hepatosplenomegaly, normal bowel sounds, no guarding or rigidity. SPINE: No scoliosis or deformity SKIN: No rashes CENTRAL NERVOUS SYSTEM: No focal deficits, tone is normal in all 4 extremities. EXTREMITIES: There is no peripheral edema. No clubbing, no cyanosis. Peripheral pulses are intact. - Labs CBC & Chem 7: 01/02/25 05:38 01/02/25 05:38 Labs: Abnormal Lab Results - Last 24 Hours (Table) 01/01/25 01/01/25 01/01/25 Range/Units 12:55 17:28 19:50 RBC (4.10-5.20) X 10*6/uL Hgb (12.0-15.0) g/dL Hct (37.2-46.3) % RDW (11.5-14.5) % Plt Count (140-440) X 10*3/uL Immature Gran # (0.00-0.04) X 10*3/uL Lymphocytes # (0.90-5.00) X 10*3/uL Sodium (137-145) mmol/L BUN (7-17) mg/dL Glucose (74-99) mg/dL POC Glucose (mg/dL) 257 H 298 H 277 H (70-110) mg/dL Phosphorus (2.5-4.5) mg/dL 01/02/25 01/02/25 01/02/25 Range/Units 05:38 05:38 07:10 RBC 2.98 L (4.10-5.20) X 10*6/uL Hgb 8.7 L (12.0-15.0) g/dL Hct 26.8 L (37.2-46.3) % RDW 16.1 H (11.5-14.5) % Plt Count 136 L (140-440) X 10*3/uL Immature Gran # 0.11 H (0.00-0.04) X 10*3/uL Lymphocytes # 0.35 L (0.90-5.00) X 10*3/uL Sodium 134 L (137-145) mmol/L BUN 37 H (7-17) mg/dL Glucose 207 H (74-99) mg/dL POC Glucose (mg/dL) 226 H (70-110) mg/dL Phosphorus 2.4 L (2.5-4.5) mg/dL Assessment and Plan Assessment: Septic shock secondary to pneumoperitoneum and intra-abdominal abscesses with sigmoid diverticulitis Acute hypoxic respiratory failure secondary to abdominal sepsis and septic shock Bacteremia secondary to E. coli secondary to above. Remains on Zosyn Acute sigmoid diverticulitis with pneumoperitoneum requiring exploratory laparotomy, drainage of interloop abscess and sigmoid colectomy with diverting colostomy postoperative day #7. 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 Acute blood loss anemia superimposed o chronic anemia as noted above Patient was extubated and 12/29/2024 Plan: The patient was seen and evaluated Labs and medications reviewed Stable on 2 L nasal cannula Discontinue solu Cortef Resume her home Decadron 20 mg each Saturday Remains on Zosyn Increase use of the incentive spirometer Increase her activity as tolerated Remains on TPN and lipids Tolerating a regular diet We will continue to follow This patient was seen independently by the pulmonary nurse practitioner addressing pulmonary issues I have personally seen and examined the patient, performed the documentation and the assessment and plan as written. Number of minutes spent on the visit: 24 Dictation was produced using [employer] dictation software. Please excuse any grammatical, word or spelling errors.
--- NOTE | 2025-01-02 12:18 | P.PN ---
Subjective Patient is seen for follow-up for acute kidney injury. Patient is awake Trying to increase oral intake Maintained on TPN Serum creatinine 0.6 today and serum sodium at 134 Objective - Vital Signs Vital signs: Vital Signs Temp 98.0 F 01/02/25 07:07 Pulse 76 01/02/25 11:27 Resp 20 01/02/25 07:07 BP 158/78 01/02/25 07:07 Pulse Ox 100 01/02/25 07:07 FiO2 35 12/31/24 07:46 Intake & Output 01/01/25 01/02/25 01/02/25 18:59 06:59 18:59 Intake Total 2338 748 Output Total 1435 920 Balance 903 -172 Weight 86.8 kg Intake: IV 100 Piperacillin-Tazobactam 3 100 .375 gm In Sodium Chloride 0.9% 100 ml @ 25 mls/hr IVPB Q8H [facility] Rx#: [id number] Intake, IV Titration 648 Amount Mvi, Adult No.4 with Vit 648 K 10 ml Trace (Conc-1Ml/ Dose) 1 ml Sodium Acetate 66 meq Potassium Phosphate 6 mmol Potassium Acetate 40 meq Magnesium Sulfate gm 1 gm Calcium Gluconate 1 gm In Amino Acids 5 %/ Dextrose 20 % 1,000 ml @ 54 mls/hr IV .[id number] [facility] Rx#:[id number] Oral 2338 Output: Drainage 35 20 Abdomen 35 20 Urine 1000 400 Stool 400 500 Other: Voiding Method Indwelling Catheter Indwelling Catheter Indwelling Catheter ABP, PAP, CO, CI - Last Documented Arterial Blood Pressure 139/52 - Exam Patient is awake, following commands Examination of the heart S1 and S2 Examination of the lungs bilateral breath sounds are heard Abdomen is soft., MILADIS drain noted colostomy noted Examination of lower extremities shows 1+ edema - Labs CBC & Chem 7: 01/02/25 05:38 01/02/25 05:38 Labs: Abnormal Lab Results - Last 24 Hours (Table) 01/01/25 01/01/25 01/01/25 Range/Units 12:55 17:28 19:50 RBC (4.10-5.20) X 10*6/uL Hgb (12.0-15.0) g/dL Hct (37.2-46.3) % RDW (11.5-14.5) % Plt Count (140-440) X 10*3/uL Immature Gran # (0.00-0.04) X 10*3/uL Lymphocytes # (0.90-5.00) X 10*3/uL Sodium (137-145) mmol/L BUN (7-17) mg/dL Glucose (74-99) mg/dL POC Glucose (mg/dL) 257 H 298 H 277 H (70-110) mg/dL Phosphorus (2.5-4.5) mg/dL 01/02/25 01/02/25 01/02/25 Range/Units 05:38 05:38 07:10 RBC 2.98 L (4.10-5.20) X 10*6/uL Hgb 8.7 L (12.0-15.0) g/dL Hct 26.8 L (37.2-46.3) % RDW 16.1 H (11.5-14.5) % Plt Count 136 L (140-440) X 10*3/uL Immature Gran # 0.11 H (0.00-0.04) X 10*3/uL Lymphocytes # 0.35 L (0.90-5.00) X 10*3/uL Sodium 134 L (137-145) mmol/L BUN 37 H (7-17) mg/dL Glucose 207 H (74-99) mg/dL POC Glucose (mg/dL) 226 H (70-110) mg/dL Phosphorus 2.4 L (2.5-4.5) mg/dL Assessment and Plan Assessment: 1. Acute kidney injury secondary to septic ATN. Baseline creatinine near 0.8 and peaked at 1.68 this admission -0.[address] scan from December 24, 2024 showed no evidence of hydronephrosis. 2. Multiple myeloma maintained on chemotherapy. 3. Acute diverticulitis with perforation being followed by surgery. Status post sigmoid colectomy with drainage of abscess December 26, 2024. 4. Acute blood loss anemia status post blood transfusion this admission. Status post IV DDAVP. 5. Metabolic acidosis secondary to acute kidney injury and IV fluids. Status post bicarb drip. Improved. 6. Hyponatremia, appears hypervolemic with third spacing 7. E. coli bacteremia on antibiotics. Plan: IV Lasix x 1 Continue with TPN Replace potassium Repeat labs in a.m.
[2025-01-02 12:32] LABS: Glucose,Whole Blood 252 mg/dL (70-110)
[2025-01-02] MEDS: POTASSIUM CHLORIDE ER 20 MEQ TAB.ER PO STA (12:54)
[2025-01-02] MEDS: FUROSEMIDE 10 MG/ML 4 ML VIAL IV STA (12:54)
--- NOTE | 2025-01-02 15:25 | P.PN ---
Subjective Progress Note Date: 01/02/25 Principal diagnosis: Reason for follow-up is bacteremia perforated diverticulitis and abscess Patient is a 79-year-old female with a past medical history significant for Coronary Artery Disease (CAD), Cancer, Diabetes Mellitus, Hyperlipidemia, Hypertension, Thyroid Disorder presenting to the hospital for evaluation of abnormal CT that was done for abdominal pain with concern for perforated sigmoid diverticulitis did have a positive blood culture with E. coli probably this consultation.Patient is status post laparotomy sigmoid colectomy drainage of the interloop abscess and proximal omentectomy patient subsequent has been admitted to ICU on the vent. On today's evaluation that is 01/02/2025, patient did not have any fever and is currently breathing comfortably 2 L current oxygen patient was resting comfortably no distress no other changes has been reported. Patient white count is 5.59, creatinine 0.61 Objective - Vital Signs Vital signs: Vital Signs Temp 97.6 F 01/02/25 12:29 Pulse 76 01/02/25 12:29 Resp 16 01/02/25 12:29 BP 156/77 01/02/25 12:29 Pulse Ox 100 01/02/25 12:29 FiO2 35 12/31/24 07:46 Intake & Output 01/01/25 01/02/25 01/02/25 18:59 06:59 18:59 Intake Total 2338 748 Output Total 1435 920 Balance 903 -172 Weight 86.8 kg Intake: IV 100 Piperacillin-Tazobactam 3 100 .375 gm In Sodium Chloride 0.9% 100 ml @ 25 mls/hr IVPB Q8H [facility] Rx#: [id number] Intake, IV Titration 648 Amount Mvi, Adult No.4 with Vit 648 K 10 ml Trace (Conc-1Ml/ Dose) 1 ml Sodium Acetate 66 meq Potassium Phosphate 6 mmol Potassium Acetate 40 meq Magnesium Sulfate gm 1 gm Calcium Gluconate 1 gm In Amino Acids 5 %/ Dextrose 20 % 1,000 ml @ 54 mls/hr IV .[id number] [facility] Rx#:[id number] Oral 2338 Output: Drainage 35 20 Abdomen 35 20 Urine 1000 400 Stool 400 500 Other: Voiding Method Indwelling Catheter Indwelling Catheter Indwelling Catheter ABP, PAP, CO, CI - Last Documented Arterial Blood Pressure 139/52 - Exam GENERAL DESCRIPTION: An elderly female intubated on the vent RESPIRATORY SYSTEM: Unlabored breathing , decreased breath sounds at bases HEART: S1 S2 regular rate and rhythm , ABDOMEN: Soft , mild tenderness EXTREMITIES: No edema feet - Labs CBC & Chem 7: 01/02/25 05:38 01/02/25 05:38 Labs: Abnormal Lab Results - Last 24 Hours (Table) 01/01/25 01/01/25 01/02/25 Range/Units 17:28 19:50 05:38 RBC (4.10-5.20) X 10*6/uL Hgb (12.0-15.0) g/dL Hct (37.2-46.3) % RDW (11.5-14.5) % Plt Count (140-440) X 10*3/uL Immature Gran # (0.00-0.04) X 10*3/uL Lymphocytes # (0.90-5.00) X 10*3/uL Sodium 134 L (137-145) mmol/L BUN 37 H (7-17) mg/dL Glucose 207 H (74-99) mg/dL POC Glucose (mg/dL) 298 H 277 H (70-110) mg/dL Phosphorus 2.4 L (2.5-4.5) mg/dL 01/02/25 01/02/25 01/02/25 Range/Units 05:38 07:10 12:31 RBC 2.98 L (4.10-5.20) X 10*6/uL Hgb 8.7 L (12.0-15.0) g/dL Hct 26.8 L (37.2-46.3) % RDW 16.1 H (11.5-14.5) % Plt Count 136 L (140-440) X 10*3/uL Immature Gran # 0.11 H (0.00-0.04) X 10*3/uL Lymphocytes # 0.35 L (0.90-5.00) X 10*3/uL Sodium (137-145) mmol/L BUN (7-17) mg/dL Glucose (74-99) mg/dL POC Glucose (mg/dL) 226 H 252 H (70-110) mg/dL Phosphorus (2.5-4.5) mg/dL Assessment and Plan (1) Perforation of sigmoid colon due to diverticulitis Current Visit: Yes Status: Acute Code(s): K57.20 - DVTRCLI OF LG INT W PERFORATION AND ABSCESS W/O BLEEDING SNOMED Code(s): 3795824362350084 (2) Bacteremia Current Visit: Yes Status: Acute Code(s): R78.81 - BACTEREMIA SNOMED Code(s): 7851738 Plan: 1patient with E. coli bacteremia source likely abdominal in this patient with evidence of abnormal CT with free air concerning for perforated diverticulitis but did not mention any abscess, patient did have a repeat CT that has been suggestive of perforated diverticulitis and abscess and patient status post laparotomy sigmoid colectomy drainage of the interloop abscess procedure completed on 12/26/2024 2patient is afebrile patient white count has normalized 3we will continue patient on Zosyn while inpatient and monitor clinical course closely Dictation was produced using [employer] dictation software. please excuse any grammatical, word or spelling errors Time with Patient: Less than 30
[2025-01-02] MEDS: [UNRECOGNIZED DRUG - REMARK] IV SCH (15:58)
[2025-01-02 17:47] LABS: Glucose,Whole Blood 281 mg/dL (70-110)
[2025-01-02 20:08] LABS: Glucose,Whole Blood 246 mg/dL (70-110)
[2025-01-03 04:49] LABS: African American GFR (CKD) >90 (>60 ml/min/1.73 sqM); Anion Gap 4 mmol/L; Blood Urea Nitrogen 36 mg/dL (7-17); Calcium 8.3 mg/dL (8.4-10.2); Carbon Dioxide 27 mmol/L (22-30); Chloride 101 mmol/L (98-107); Glucose 207 mg/dL (74-99); Magnesium 1.9 mg/dL (1.6-2.3); Non-African American GFR(CKD) 90 (>60 ml/min/1.73 sqM); Phosphorus 2.6 mg/dL (2.5-4.5); Potassium 3.9 mmol/L (3.5-5.1); Sodium 132 mmol/L (137-145)
[2025-01-03 07:01] LABS: Glucose,Whole Blood 247 mg/dL (70-110)
--- NOTE | 2025-01-03 09:25 | P.PN ---
Subjective Progress Note Date: 01/03/25 Principal diagnosis: Diverticulitis Patient feels well today. She had 2 episodes of vomiting yesterday morning but denies nausea currently. She would like to try regular food again. Denies pain today. Ostomy seems to be functioning. Objective - Vital Signs Vital signs: Vital Signs Temp 97.2 F L 01/03/25 07:01 Pulse 84 01/03/25 08:53 Resp 16 01/03/25 07:01 BP 139/75 01/03/25 07:01 Pulse Ox 98 01/03/25 07:01 FiO2 35 12/31/24 07:46 Intake & Output 01/02/25 01/03/25 01/03/25 18:59 06:59 18:59 Intake Total 748 Output Total 1870 670 Balance -1870 78 Intake: IV 100 Piperacillin-Tazobactam 3 100 .375 gm In Sodium Chloride 0.9% 100 ml @ 25 mls/hr IVPB Q8H [facility] Rx#: [id number] Intake, IV Titration 648 Amount Mvi, Adult No.4 with Vit 648 K 10 ml Trace (Conc-1Ml/ Dose) 1 ml Sodium Acetate 70 meq Potassium Phosphate 9 mmol Potassium Acetate 40 meq Magnesium Sulfate gm 1 gm Calcium Gluconate 1 gm In Amino Acids 5 %/ Dextrose 20 % 1,000 ml @ 54 mls/hr IV .[id number] [facility] Rx#:[id number] Output: Drainage 20 20 Abdomen 20 20 Urine 1700 600 Stool 150 50 Other: Voiding Method Indwelling Catheter Indwelling Catheter ABP, PAP, CO, CI - Last Documented Arterial Blood Pressure 139/52 - Exam Abdomen: Soft, nondistended, mild incisional tenderness. Mild serous drainage from incision, ostomy functioning - Labs CBC & Chem 7: 01/02/25 05:38 01/03/25 04:05 Labs: Abnormal Lab Results - Last 24 Hours (Table) 01/02/25 01/02/25 01/02/25 Range/Units 05:38 12:31 17:37 RBC 2.98 L (4.10-5.20) X 10*6/uL Hgb 8.7 L (12.0-15.0) g/dL Hct 26.8 L (37.2-46.3) % RDW 16.1 H (11.5-14.5) % Plt Count 136 L (140-440) X 10*3/uL Immature Gran # 0.11 H (0.00-0.04) X 10*3/uL Lymphocytes # 0.35 L (0.90-5.00) X 10*3/uL Sodium (137-145) mmol/L BUN (7-17) mg/dL Glucose (74-99) mg/dL POC Glucose (mg/dL) 252 H 281 H (70-110) mg/dL Calcium (8.4-10.2) mg/dL 01/02/25 01/03/25 01/03/25 Range/Units 20:01 04:05 06:59 RBC (4.10-5.20) X 10*6/uL Hgb (12.0-15.0) g/dL Hct (37.2-46.3) % RDW (11.5-14.5) % Plt Count (140-440) X 10*3/uL Immature Gran # (0.00-0.04) X 10*3/uL Lymphocytes # (0.90-5.00) X 10*3/uL Sodium 132 L (137-145) mmol/L BUN 36 H (7-17) mg/dL Glucose 207 H (74-99) mg/dL POC Glucose (mg/dL) 246 H 247 H (70-110) mg/dL Calcium 8.3 L (8.4-10.2) mg/dL Assessment and Plan (1) Abdominal pain Narrative/Plan: Patient seems improved. No pain and no nausea today. Resume regular diet. Continue physical therapy. Possible transfer to [facility] tomorrow. Current Visit: Yes Status: Acute Code(s): R10.9 - UNSPECIFIED ABDOMINAL PAIN SNOMED Code(s): 00223902
--- NOTE | 2025-01-03 11:55 | P.PN ---
Subjective Progress Note Date: 01/03/25 This is a 79-year-old female patient with known history of coronary artery disease and previous bypass surgery and known history of diabetes mellitus type 2 and multiple myeloma and the patient was diagnosed having multiple myeloma back in May 2024 and the patient had significant back pain with pathologic bone marrow infiltration throughout the lumbar spine and pelvic area with a pathologic fracture of the L2 vertebral body and osseous extension of the tumor causing left neural foraminal narrowing at the level of L1-L2 and L2-L3. The patient was started on treatment with palliative radiation therapy and following that she was started on RVD treatment and she completed cycle 2 on 12/24/2024. Subsequently, the patient gets hospitalized for an extensive left lower extremity DVT involving a clot extending from the left iliac to the popliteal vein and the patient was started on anticoagulation with Eliquis. She was discharged to be readmitted for abdominal pain and this was assumed to be rel ated to constipation. She was discharged to be readmitted for ongoing abdominal pain and the patient was diagnosed having acute diverticulitis. Yesterday, the patient was taken to the operating room as the follow-up CAT scan of the abdomen showed a complicated diverticulitis of the sigmoid colon with perforation and pneumoperitoneum. There was 8 cm gas/fluid collection consistent with an absces s. She also had cholelithiasis and diffuse anasarca. In the operating room, the patient was found to have an abdominal abscess that was drained. The patient had sigmoid colectomy and diverting colostomy. Postop, the patient was kept intubated and placed on the mechanical ventilator and she was transferred to the ICU. Noted her anticoagulation is currently on hold and she is not showing any signs of bleeding. He is currently off anticoagulants. Vascular surgery has seen the patient and patient is being contemplated for IVC filter placement. Platelet counts are also low. This morning, she is on propofol at rate of 30, she is on assist-control mode at rate of 16, tidal volume of 350, F iO2 40% with a PEEP of 5. Blood gas showed a pH of 7.48 with a pCO2 of 30 and pO2 175. NG tube output is minimal and fluid balance is +2.7 L of the patient received several fluid boluses yesterday. She remains on Alvin-Synephrine at 1.3 mcg. Producing urine output. White cell count is 14.7, hemoglobin is 8.7 and platelet count is at 73. The non-anion gap metabolic acidosis is improved and the patient serum bicarb is up to 22. Sodium levels at 127. Potassium is at 4.2. LFTs are normal. Blood sugar is at 363. Chest x-ray showed atelectatic changes lung base bilaterally. Orotracheal tube is in good location. Postthoracotomy changes related to previous heart surgery and some pulm vascular congestion is also present. The patient is currently on IV Zosyn. She will be started on TPN for nutritional support within the next 24 to 48 hours. Blood cultures positive for E. coli. Patient was seen today on 12/28/2024, patient remains in the ICU, she is on mechanical ventilation, and the patient just came back from IVC filter placement by vascular surgery. Patient is on assist-control rate of 16 tidal volume 350 FiO2 35% and PEEP of 5 ABG showed a pO2 of 150 pCO2 33 pH of 7.45 hence patient was transitioned to assist-control rate of 12 tidal volume 400 FiO2 30% and PEEP of 5 patient is also receiving a unit of packed RBCs for hemoglobin of 6.7. Requiring multiple drips including norepinephrine at 0.02 mcg/kg/min she is on TPN at 30 cc/h propofol 40 mg/kg/min and amiodarone 0.5 mg/min. Patient is also receiving insulin at 11.1 units/h. Her Solu-Cortef dose was cut down and the patient remains empirically on Zosyn. Today is postoperative day #2, patient is status post colectomy with ostomy and MILADIS drain placement. Again her presentation was mostly a presentation of abdominal sepsis. Chest x-ray today showed mostly bibasilar atelectasis., No evidence of pulmonary edema., And I doubt pneumonia. WBC count today 13.2 hemoglobin 6.7 platelets are 47,000's. Sodium is 128 potassium 2.9 chloride 98 BUN 31 creatinine 1.01 patient has received a total of 3 units of packed RBCs since admission. Blood cultures are positive for E. coli. Sensitive to Zosyn Seen today on 12/29/2024, remains in the ICU, intubated and mechanically ventilated, on assist-control mode of mechanical ventilation, rate 12 tidal volume 400 FiO2 30% PEEP of 5 ABG showed a pO2 of 114 pCO2 3 0 pH of 7.44 patient is requiring propofol at 45 mcg/kg/min she is not requiring any pressors today, patient is on TPN at 33 cc/h and IV fluid 0.9 normal saline at 75 cc/h. Her surgical site seems to be intact, ostomy seems to be pink, minimal bloody drainage into the ostomy bag. Patient is sedated, however I plan to discontinue propofol today and give the patient a weaning trial on Precedex. Her WBC count is 9.2 hemoglobin 8.7. Basic metabolic profile is relatively normal except for sodium of 128 renal profile is normal, chest x-ray showed mostly bibasilar atelectasis, no clear-cut evidence of infiltrate. Patient was seen today on 12/30/2024, patient remains in the ICU, however the patient was extubated yesterday, and extubation was successful. Patient is now on 2 L nasal cannula, she was initially extubated to BiPAP /5/35%, patient is awake, alert oriented x 3, does not seem to be in any distress, remains on TPN she is also on lipids. Her ostomy seems to be functioning quite well, her nasogastric tube was removed, my plan is to transfer the patient today to regular medical floor/[facility]. WBC count today is 9.3 hemoglobin 9.2 platelets remain low at 50,000 but improving, basic metabolic profile is normal BUN is 30 creatinine 0.96. Patient remains on hydrocortisone 50 mg IV push every 12 hours, remains on Dilaudid as needed, patient is also on Zosyn and on Protonix. The patient is seen today December 31, 2024 in follow-up on the regular medical floor. She was transferred out of the intensive care unit yesterday. She is resting in bed. Awake and alert in no acute distress. Maintaining good O2 saturations in the 90s on 2 L/min per nasal cannula. She is afebrile. Hemodynamically stable. She did wear BiPAP last evening 09/17 and 35% FiO2. She is being nourished with TPN and lipids. Sodium 130. Potassium 3.1. Bicarb 35. Creatinine 0.79. Glucose 244. Ostomy functioning. He is tolerating a clear liquid diet. Today January 01, 2025 in follow-up on the regular medical floor. She is currently resting in bed. Awake and alert in no acute distress. Maintaining good O2 saturations in the 90s on 2 L/min per nasal cannula. She is wearing the BiPAP at night 12/5 and 35% FiO2. Her diet has been been advanced to full liquids. Ostomy functioning. She remains on TPN at 54 mL/h. Continued on Zosyn. Continued on Solu-Cortef. She needs increased encouragement regarding the use of the incentive spirometer. White count 6.0. Hemoglobin 8.7. Platelets 113. Sodium 131. Potassium 3.6. Bicarb 26. BUN 34. Creatinine 0.66. Glucose 230. The patient is seen today January 02, 2025 in follow-up on the regular medical floor. She is currently sitting up in bed. Having breakfast. Denies any worsening shortness of breath, cough or congestion. Maintaining O2 saturations up to 100% on 2 L/min per nasal cannula. She has been afebrile. Hemodynamica lly stable. Still with some mild abdominal discomfort. She remains on TPN at 54 mLs per hour. Remains on Zosyn. Remains on Solu-Cortef. Continued on bronchodilators. Increased encouragement regarding the use of the incentive spirometer. White count 5.5. Hemoglobin 8.7. Platelets 136. Sodium 134. Potassium 3.5. Bicarb 24. BUN 37. Creatinine 0.61. Glucose 207. The patient is seen today January 03, 2025 in follow-up on the regular medical floor. She is awake and alert in no acute distress. Resting comfortably in bed. Maintaining O2 saturations in the 90s on room air oxygen. She is afebrile. Hemodynamically stable. Sodium 132. Potassium 3.9. Bicarb 27. BUN 36. Creatinine 0.57. Glucose 207. She is continued on DuoNeb inhalations. Antibiotics in the form of Zosyn. She remains on Decadron on Mondays. Continued on TPN at 54 mL/h along with lipids as scheduled. She is status post 4 units of packed red blood cells this admission. Current hemoglobin 8.7. Objective - Vital Signs Vital signs: Vital Signs Temp 97.2 F L 01/03/25 07:01 Pulse 84 01/03/25 11:26 Resp 16 01/03/25 07:01 BP 139/75 01/03/25 07:01 Pulse Ox 98 01/03/25 07:01 FiO2 35 12/31/24 07:46 Intake & Output 01/02/25 01/03/25 01/03/25 18:59 06:59 18:59 Intake Total 748 Output Total 1870 670 Balance -187 78 Intake: IV 100 Piperacillin-Tazobactam 3 100 .375 gm In Sodium Chloride 0.9% 100 ml @ 25 mls/hr IVPB Q8H [facility] Rx#: [id number] Intake, IV Titration 648 Amount Mvi, Adult No.4 with Vit 648 K 10 ml Trace (Conc-1Ml/ Dose) 1 ml Sodium Acetate 70 meq Potassium Phosphate 9 mmol Potassium Acetate 40 meq Magnesium Sulfate gm 1 gm Calcium Gluconate 1 gm In Amino Acids 5 %/ Dextrose 20 % 1,000 ml @ 54 mls/hr IV .Q20H2M [facility] Rx#:[id number] Output: Drainage 20 20 Abdomen 20 20 Urine 1700 600 Stool 150 50 Other: Voiding Method Indwelling Catheter Indwelling Catheter Indwelling Catheter ABP, PAP, CO, CI - Last Documented Arterial Blood Pressure 139/52 - Exam GENERAL EXAM: Alert, weak 79-year-old female, sitting up in bed, on room air, in no apparent distress. HEAD: Normocephalic. EYES: Normal reaction of pupils, equal size. NOSE: Clear with pink turbinates. THROAT: No erythema or exudates. NECK: No masses, no JVD. CHEST: No chest wall deformity. LUNGS: Equal air entry with no crackles, wheeze, rhonchi or dullness. CVS: S1 and S2 normal with no audible murmur, regular rhythm. ABDOMEN: Ostomy functioning. Dressing dry and intact. No hepatosplenomegaly, normal bowel sounds, no guarding or rigidity. SPINE: No scoliosis or deformity SKIN: No rashes CENTRAL NERVOUS SYSTEM: No focal deficits, tone is normal in all 4 extremities. EXTREMITIES: There is no peripheral edema. No clubbing, no cyanosis. Peripheral pulses are intact. - Labs CBC & Chem 7: 01/02/25 05:38 01/03/25 04:05 Labs: Abnormal Lab Results - Last 24 Hours (Table) 01/02/25 01/02/25 01/02/25 Range/Units 12:31 17:37 20:01 Sodium (137-145) mmol/L BUN (7-17) mg/dL Glucose (74-99) mg/dL POC Glucose (mg/dL) 252 H 281 H 246 H (70-110) mg/dL Calcium (8.4-10.2) mg/dL 01/03/25 01/03/25 Range/Units 04:05 06:59 Sodium 132 L (137-145) mmol/L BUN 36 H (7-17) mg/dL Glucose 207 H (74-99) mg/dL POC Glucose (mg/dL) 247 H (70-110) mg/dL Calcium 8.3 L (8.4-10.2) mg/dL Assessment and Plan Assessment: Septic shock secondary to pneumoperitoneum and intra-abdominal abscesses with sigmoid diverticulitis Acute hypoxic respiratory failure secondary to abdominal sepsis and septic shock Bacteremia secondary to E. coli secondary to above. Remains on Zosyn Acute sigmoid diverticulitis with pneumoperitoneum requiring exploratory laparotomy, drainage of interloop abscess and sigmoid colectomy with diverting colostomy postoperative day #8. 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 Acute blood loss anemia superimposed o chronic anemia as noted above Patient was extubated and 12/29/2024 Plan: The patient was seen and evaluated Labs and medications reviewed Stable on room air oxygen Remains on Zosyn Remains on bronchodilators Increase use of the incentive spirometer Increase her activity as tolerated Remains on TPN and lipids Diet advanced per surgical services Plan is for inpatient versus subacute rehabilitation at discharge This patient was seen independently by the pulmonary nurse practitioner addressing pulmonary issues I have personally seen and examined the patient, performed the documentation and the assessment and plan as written. Number of minutes spent on the visit: 23 Dictation was produced using [employer] software. Please excuse any grammatical, word or spelling errors.
[2025-01-03 12:02] LABS: Glucose,Whole Blood 259 mg/dL (70-110)
--- NOTE | 2025-01-03 12:48 | P.PN ---
Subjective Patient is seen for follow-up for acute kidney injury. Patient is sleeping but arousable Trying to increase oral intake Maintained on TPN Serum creatinine 0.6 today and serum sodium at 132 Objective - Vital Signs Vital signs: Vital Signs Temp 97.2 F L 01/03/25 07:01 Pulse 84 01/03/25 11:26 Resp 16 01/03/25 07:01 BP 139/75 01/03/25 07:01 Pulse Ox 98 01/03/25 07:01 FiO2 35 12/31/24 07:46 Intake & Output 01/02/25 01/03/25 01/03/25 18:59 06:59 18:59 Intake Total 748 Output Total 1870 670 Balance -1870 78 Intake: IV 100 Piperacillin-Tazobactam 3 100 .375 gm In Sodium Chloride 0.9% 100 ml @ 25 mls/hr IVPB Q8H [facility] Rx#: [id number] Intake, IV Titration 648 Amount Mvi, Adult No.4 with Vit 648 K 10 ml Trace (Conc-1Ml/ Dose) 1 ml Sodium Acetate 70 meq Potassium Phosphate 9 mmol Potassium Acetate 40 meq Magnesium Sulfate gm 1 gm Calcium Gluconate 1 gm In Amino Acids 5 %/ Dextrose 20 % 1,000 ml @ 54 mls/hr IV .Q20H2M [facility] Rx#:[id number] Output: Drainage 20 20 Abdomen 20 20 Urine 1700 600 Stool 150 50 Other: Voiding Method Indwelling Catheter Indwelling Catheter Indwelling Catheter ABP, PAP, CO, CI - Last Documented Arterial Blood Pressure 139/52 - Exam Patient is awake, following commands Examination of the heart S1 and S2 Examination of the lungs bilateral breath sounds are heard Abdomen is soft., MILADIS drain noted colostomy noted Examination of lower extremities shows 2+ edema - Labs CBC & Chem 7: 01/02/25 05:38 01/03/25 04:05 Labs: Abnormal Lab Results - Last 24 Hours (Table) 01/02/25 01/02/25 01/03/25 Range/Units 17:37 20:01 04:05 Sodium 132 L (137-145) mmol/L BUN 36 H (7-17) mg/dL Glucose 207 H (74-99) mg/dL POC Glucose (mg/dL) 281 H 246 H (70-110) mg/dL Calcium 8.3 L (8.4-10.2) mg/dL 01/03/25 01/03/25 Range/Units 06:59 12:00 Sodium (137-145) mmol/L BUN (7-17) mg/dL Glucose (74-99) mg/dL POC Glucose (mg/dL) 247 H 259 H (70-110) mg/dL Calcium (8.4-10.2) mg/dL Assessment and Plan Assessment: 1. Acute kidney injury secondary to septic ATN. Baseline creatinine near 0.8 and peaked at 1.68 this admission -0.[address] scan from December 24, 2024 showed no evidence of hydronephrosis. 2. Multiple myeloma maintained on chemotherapy. 3. Acute diverticulitis with perforation being followed by surgery. Status post sigmoid colectomy with drainage of abscess December 26, 2024. 4. Acute blood loss anemia status post blood transfusion this admission. Status post IV DDAVP. 5. Metabolic acidosis secondary to acute kidney injury and IV fluids. Status post bicarb drip. Improved. 6. Hyponatremia, appears hypervolemic with third spacing 7. E. coli bacteremia on antibiotics. Plan: Maintain scheduled dose of Lasix Continue with TPN Replace potassium Repeat labs in a.m.
[2025-01-03] MEDS: FUROSEMIDE 10 MG/ML 4 ML VIAL IV SCH (13:07)
--- NOTE | 2025-01-03 13:27 | P.PN ---
Subjective Progress Note Date: 01/03/25 Principal diagnosis: . Perforated diverticulum , complicated by multiple myeloma, acute renal injury, status post bowel resection with colostomy Status post resected bowel secondary to perforated diverticulum postop day 5 patient awake alert oriented x 3 patient is in better spirits bonding appropriately is drinking a limited clear diet to be advanced as tolerated, currently resting comfortably currently asleep Objective - Vital Signs Vital signs: Vital Signs Temp 97.5 F L 01/03/25 13:03 Pulse 87 01/03/25 13:03 Resp 16 01/03/25 13:03 BP 153/74 01/03/25 13:03 Pulse Ox 99 01/03/25 13:03 FiO2 35 12/31/24 07:46 Intake & Output 01/02/25 01/03/25 01/03/25 18:59 06:59 18:59 Intake Total 748 1081 Output Total 1870 670 Balance -1870 78 1081 Intake: IV 100 Piperacillin-Tazobactam 3 100 .375 gm In Sodium Chloride 0.9% 100 ml @ 25 mls/hr IVPB Q8H [facility] Rx#: [id number] Intake, IV Titration 648 1081 Amount Mvi, Adult No.4 with Vit 648 1081 K 10 ml Trace (Conc-1Ml/ Dose) 1 ml Sodium Acetate 70 meq Potassium Phosphate 9 mmol Potassium Acetate 40 meq Magnesium Sulfate gm 1 gm Calcium Gluconate 1 gm In Amino Acids 5 %/ Dextrose 20 % 1,000 ml @ 54 mls/hr IV .Q20H2M [facility] Rx#:[id number] Output: Drainage 20 20 Abdomen 20 20 Urine 1700 600 Stool 150 50 Other: Voiding Method Indwelling Catheter Indwelling Catheter Indwelling Catheter ABP, PAP, CO, CI - Last Documented Arterial Blood Pressure 139/52 - Exam General: [Patient awake, alert oriented x 3 vital signs are stable patient is afebrile currently on TPN HEENT: [PERRL. EOMI. No pharyngeal erythema or exudate.] Neck: [No adenopathy.] Cardiac: [Heart regular in rate and rhythm. No S3. No S4. No clicks, rubs. No murmur.] Lungs: [Clear to auscultation bilaterally.] Abdomen: [No mass. No organomegaly. Bowel sounds presnt and normoactive in all 4 quadrants.] Ostomy site clean and dry stool noted in pouch Extremes: [No edema no cyanosis no claudication normal pulses] : normal female Musculoskeletal: [No joint erythema, edema or tenderness.] Skin: [No rash.] Neurologic: [No lateralizing deficits. CN II - XII grossly intact.] Lymphatic: [No adenopathy.] - Labs CBC & Chem 7: 01/02/25 05:38 01/03/25 04:05 Labs: Abnormal Lab Results - Last 24 Hours (Table) 01/02/25 01/02/25 01/03/25 Range/Units 17:37 20:01 04:05 Sodium 132 L (137-145) mmol/L BUN 36 H (7-17) mg/dL Glucose 207 H (74-99) mg/dL POC Glucose (mg/dL) 281 H 246 H (70-110) mg/dL Calcium 8.3 L (8.4-10.2) mg/dL 01/03/25 01/03/25 Range/Units 06:59 12:00 Sodium (137-145) mmol/L BUN (7-17) mg/dL Glucose (74-99) mg/dL POC Glucose (mg/dL) 247 H 259 H (70-110) mg/dL Calcium (8.4-10.2) mg/dL Assessment and Plan (1) Abdominal pain Current Visit: Yes Status: Acute Code(s): R10.9 - UNSPECIFIED ABDOMINAL PAIN SNOMED Code(s): 34317174 (2) Bacteremia Current Visit: Yes Status: Acute Code(s): R78.81 - BACTEREMIA SNOMED Code(s): 8815831 (3) Pancytopenia Current Visit: Yes Status: Acute Code(s): D61.818 - OTHER PANCYTOPENIA SNOMED Code(s): 127728260 (4) Perforated diverticulum Current Visit: Yes Status: Acute Priority: High Code(s): K57.80 - DVTRCLI OF INTEST, PART UNSP, W PERF AND ABSCESS W/O BLEED SNOMED Code(s): 79602988 (5) Perforation of sigmoid colon due to diverticulitis Current Visit: Yes Status: Acute Code(s): K57.20 - DVTRCLI OF LG INT W PERFORATION AND ABSCESS W/O BLEEDING SNOMED Code(s): 5197067303984187 (6) Pneumoperitoneum Current Visit: Yes Status: Acute Code(s): K66.8 - OTHER SPECIFIED DISORDERS OF PERITONEUM SNOMED Code(s): 73436542 (7) S/P colectomy Current Visit: Yes Status: Acute Code(s): Z90.49 - ACQUIRED ABSENCE OF OTHER SPECIFIED PARTS OF DIGESTIVE TRACT SNOMED Code(s): 988250953 (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 Current Visit: Yes Status: Acute Code(s): E11.59 - TYPE 2 DIABETES MELLITUS WITH OTH CIRCULATORY COMPLICATIONS SNOMED Code(s): 01803251 (9) Coronary artery 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 Current Visit: No Status: Acute Code(s): E11.59 - TYPE 2 DIABETES MELLITUS WITH OTH CIRCULATORY COMPLICATIONS; I25.10 - ATHSCL HEART DISEASE OF [place] CORONARY ARTERY W/O ANG PCTRS SNOMED Code(s): 27594766552526670 (10) Deep vein thrombosis (DVT) of lower extremity Current Visit: No Status: Acute Priority: Medium Code(s): I82.409 - ACUTE EMBOLISM AND THOMBOS UNSP DEEP VN UNSP LOWER EXTREMITY SNOMED Code(s): 432754305 (11) H/O four vessel coronary artery bypass graft Current Visit: No Status: Acute Code(s): Z95.1 - PRESENCE OF AORTOCORONARY BYPASS GRAFT SNOMED Code(s): 009499974 (12) Hypertension Current Visit: No Status: Acute Code(s): I10 - ESSENTIAL (PRIMARY) HYPERTENSION SNOMED Code(s): 99583260 (13) Multiple myeloma Current Visit: No Status: Acute Code(s): C90.00 - MULTIPLE MYELOMA NOT HAVING ACHIEVED REMISSION SNOMED Code(s): 011069779 Plan: Continue current care PT OT evaluate and treat Encourage oral intake IV antibiotics Prealbumin to assess nutritional state Time with Patient: Greater than 30
--- NOTE | 2025-01-03 16:14 | P.PN ---
Subjective Progress Note Date: 01/03/25 Principal diagnosis: Reason for follow-up is bacteremia perforated diverticulitis and abscess Patient is a 79-year-old female with a past medical history significant for Coronary Artery Disease (CAD), Cancer, Diabetes Mellitus, Hyperlipidemia, Hypertension, Thyroid Disorder presenting to the hospital for evaluation of abnormal CT that was done for abdominal pain with concern for perforated sigmoid diverticulitis did have a positive blood culture with E. coli probably this consultation.Patient is status post laparotomy sigmoid colectomy drainage of the interloop abscess and proximal omentectomy patient subsequent has been admitted to ICU on the vent. On today's evaluation that is 01/03/2025, Patient is afebrile patient is currently on room air and denies having any shortness of breath, the patient denies any chest pain or cough, the patient denies any nausea vomiting did not have any abdominal pain and mention feeling better. Patient white count 0.57 Objective - Vital Signs Vital signs: Vital Signs Temp 97.2 F L 01/03/25 07:01 Pulse 84 01/03/25 11:26 Resp 16 01/03/25 07:01 BP 139/75 01/03/25 07:01 Pulse Ox 98 01/03/25 07:01 FiO2 35 12/31/24 07:46 Intake & Output 01/02/25 01/03/25 01/03/25 18:59 06:59 18:59 Intake Total 748 Output Total 1870 670 Balance -1870 78 Intake: IV 100 Piperacillin-Tazobactam 3 100 .375 gm In Sodium Chloride 0.9% 100 ml @ 25 mls/hr IVPB Q8H [facility] Rx#: [id number] Intake, IV Titration 648 Amount Mvi, Adult No.4 with Vit 648 K 10 ml Trace (Conc-1Ml/ Dose) 1 ml Sodium Acetate 70 meq Potassium Phosphate 9 mmol Potassium Acetate 40 meq Magnesium Sulfate gm 1 gm Calcium Gluconate 1 gm In Amino Acids 5 %/ Dextrose 20 % 1,000 ml @ 54 mls/hr IV .Q20H2M [facility] Rx#:[id number] Output: Drainage 20 20 Abdomen 20 20 Urine 1700 600 Stool 150 50 Other: Voiding Method Indwelling Catheter Indwelling Catheter Indwelling Catheter ABP, PAP, CO, CI - Last Documented Arterial Blood Pressure 139/52 - Exam GENERAL DESCRIPTION: An elderly female intubated on the vent RESPIRATORY SYSTEM: Unlabored breathing , decreased breath sounds at bases HEART: S1 S2 regular rate and rhythm , ABDOMEN: Soft , mild tenderness EXTREMITIES: No edema feet - Labs CBC & Chem 7: 01/02/25 05:38 01/03/25 04:05 Labs: Abnormal Lab Results - Last 24 Hours (Table) 01/02/25 01/02/25 01/03/25 Range/Units 17:37 20:01 04:05 Sodium 132 L (137-145) mmol/L BUN 36 H (7-17) mg/dL Glucose 207 H (74-99) mg/dL POC Glucose (mg/dL) 281 H 246 H (70-110) mg/dL Calcium 8.3 L (8.4-10.2) mg/dL 01/03/25 01/03/25 Range/Units 06:59 12:00 Sodium (137-145) mmol/L BUN (7-17) mg/dL Glucose (74-99) mg/dL POC Glucose (mg/dL) 247 H 259 H (70-110) mg/dL Calcium (8.4-10.2) mg/dL Assessment and Plan (1) Perforation of sigmoid colon due to diverticulitis Current Visit: Yes Status: Acute Code(s): K57.20 - DVTRCLI OF LG INT W PERFORATION AND ABSCESS W/O BLEEDING SNOMED Code(s): 7883470779712575 (2) Bacteremia Current Visit: Yes Status: Acute Code(s): R78.81 - BACTEREMIA SNOMED Code(s): 1549788 Plan: 1patient with E. coli bacteremia source likely abdominal in this patient with evidence of abnormal CT with free air concerning for perforated diverticulitis but did not mention any abscess, patient did have a repeat CT that has been suggestive of perforated diverticulitis and abscess and patient status post la parotomy sigmoid colectomy drainage of the interloop abscess procedure completed on 12/26/2024 2patient is afebrile patient white count has normalized 3we will continue patient on Zosyn while inpatient and will be transition to oral Ceftin and Flagyl on discharge Dictation was produced using [employer] dictation software. please excuse any grammatical, word or spelling errors Time with Patient: Less than 30
[2025-01-03 17:14] LABS: Glucose,Whole Blood 205 mg/dL (70-110)
[2025-01-03 20:06] LABS: Glucose,Whole Blood 147 mg/dL (70-110)
[2025-01-04 07:05] LABS: African American GFR (CKD) >90 (>60 ml/min/1.73 sqM); Anion Gap 4 mmol/L; Blood Urea Nitrogen 36 mg/dL (7-17); Calcium 7.8 mg/dL (8.4-10.2); Carbon Dioxide 28 mmol/L (22-30); Chloride 99 mmol/L (98-107); Glucose 137 mg/dL (74-99); Magnesium 1.8 mg/dL (1.6-2.3); Non-African American GFR(CKD) >90 (>60 ml/min/1.73 sqM); Sodium 131 mmol/L (137-145)
[2025-01-04 07:17] LABS: Glucose,Whole Blood 199 mg/dL (70-110)
[2025-01-04] MEDS: dexAMETHasone 4 MG TAB PO SCH (08:09)
--- NOTE | 2025-01-04 08:53 | P.PN ---
Subjective Patient is seen in follow-up for acute kidney injury. RODRIGUEZ resolved. Receiving TPN. Vital signs are stable. General: Resting in bed. HEENT: On room air. LUNGS: No audible rhonchi or wheezes. HEART: Rate and Rhythm are regular. ABDOMEN: Colostomy noted. EXTREMITITES: 1+ edema. Objective - Vital Signs Vital signs: Vital Signs Temp 97.6 F 01/04/25 07:05 Pulse 88 01/04/25 07:55 Resp 18 01/04/25 07:05 BP 130/56 01/04/25 07:05 Pulse Ox 98 01/04/25 07:05 FiO2 35 12/31/24 07:46 Intake & Output 01/03/25 01/04/25 01/04/25 18:59 06:59 18:59 Intake Total 1721 1022.4 Output Total 1310 710 Balance 411 -710 1022.4 Intake: Intake, IV Titration 1081 1022.4 Amount Mvi, Adult No.4 with Vit 1081 1022.4 K 10 ml Trace (Conc-1Ml/ Dose) 1 ml Sodium Acetate 70 meq Potassium Phosphate 9 mmol Potassium Acetate 40 meq Magnesium Sulfate gm 1 gm Calcium Gluconate 1 gm In Amino Acids 5 %/ Dextrose 20 % 1,000 ml @ 54 mls/hr IV .Q20H2M [facility] Rx#:[id number] Oral 640 Output: Drainage 10 10 Abdomen 10 10 Urine 1200 400 Stool 100 300 Other: Voiding Method Indwelling Catheter Indwelling Catheter ABP, PAP, CO, CI - Last Documented Arterial Blood Pressure 139/52 - Labs CBC & Chem 7: 01/02/25 05:38 01/04/25 04:44 Labs: Abnormal Lab Results - Last 24 Hours (Table) 01/03/25 01/03/25 01/03/25 Range/Units 12:00 17:13 20:04 Sodium (137-145) mmol/L BUN (7-17) mg/dL Glucose (74-99) mg/dL POC Glucose (mg/dL) 259 H 205 H 147 H (70-110) mg/dL Calcium (8.4-10.2) mg/dL 01/04/25 01/04/25 Range/Units 04:44 07:11 Sodium 131 L (137-145) mmol/L BUN 36 H (7-17) mg/dL Glucose 137 H (74-99) mg/dL POC Glucose (mg/dL) 199 H (70-110) mg/dL Calcium 7.8 L (8.4-10.2) mg/dL Assessment and Plan Plan: Assessment: 1. Acute kidney injury secondary to septic ATN. Resolved. CT scan from December 24, 2024 showed no evidence of hydronephrosis. 2. Multiple myeloma maintained on chemotherapy outpatient. 3. Acute diverticulitis with perforation being followed by surgery. Status post sigmoid colectomy with drainage of abscess December 26, 2024. 4. Acute blood loss anemia status post blood transfusion this admission. Status post IV DDAVP. 5. Metabolic acidosis secondary to acute kidney injury and IV fluids. Status post bicarb drip. Improved. 6. Hyponatremia secondary to acute kidney injury. Hypervolemic. 7. E. coli bacteremia on antibiotics. 8. Volume overload. Plan: Maintain IV Lasix. TPN per surgery.
--- NOTE | 2025-01-04 09:09 | P.PN ---
Subjective Progress Note Date: 01/04/25 Progress Note Date: 12/28/24 Principal diagnosis: . Perforated diverticulum , complicated by multiple myeloma, still intubated Status post resected bowel secondary to perforated diverticulum postop day 3 patient awake with limited responses 12/30/2024 status post sigmoid colectomy, drainage of interloop abscess, proximal laminectomy on 12/26/2024 with right femoral IVC placed on 12/28/2024. maintained on TPN. Sodium improving, 131, bicarb 20, BUN 30, creatinine 0.96. Afebrile, Tmax 98, normal WBC, continues on Zosyn. Extubated yesterday, maintaining O2 sats in the high 90s on BiPAP 30% FiO2. Insulin drip transition to sliding scale with long-acting insulin, blood sugars controlled. 12/31/2024 transferred out of ICU to [facility] with telemetry. BiPAP during the night at 35% FiO2, currently maintaining O2 sats in the 90s on 2 L nasal cannula. Participated with PT this morning, performing range of motion repetitions of extremities. Tolerated exertion well. Maintained on TPN/lipids. minimal intake of clear liquid diet. Denies nausea or vomiting. Functioning ostomy. Pain controlled. Has not yet worked with her incentive spirometer this morning. Eliquis and aspirin remain on hold, hemoglobin pending. K 3.1, supplementation ordered. Blood sugars elevated in the 200s. Bicarb 35, creatinine 0.79. 01/01/2025 maintained on Zosyn, steroids. Afebrile, CBC pending. Eliquis and aspirin remains on hold for acute on chronic blood loss anemia; femoral IVC filter present. maintained on TPN and lipids for nutritional support. continues on clear liquid diet. Blood sugars in the 200s. Potassium 3.4, receiving supplementation. Pain controlled. Did not require BiPAP last night. Maintaining O2 sats in the high 90s to 100% on 2 L nasal cannula. Fluctuating hypertension with PRN IV push hydralazine in place. 01/04/2025 continues on Lasix IV push, generalized edema improving. Renal function stable. diet advanced to regular consistent carb diet yesterday with minimal intake. TPN weaning in progress as per surgery. Blood sugars controlled. patient exhibits weakness lifting arms-requires assistance and encouragement with all meals. Maintained on Zosyn. Afebrile. Denies chest pain, palpitations or shortness of breath. Maintaining O2 sats in the high 90s on room air. Denies pain currently. PT pending this morning, staff reports on Saturday patient was a total lift to chair. Prealbumin 30.3. Objective - Vital Signs Vital signs: Vital Signs Temp 97.6 F 01/04/25 07:05 Pulse 88 01/04/25 07:55 Resp 18 01/04/25 07:05 BP 130/56 01/04/25 07:05 Pulse Ox 98 01/04/25 07:05 FiO2 35 12/31/24 07:46 Intake & Output 01/03/25 01/04/25 01/04/25 18:59 06:59 18:59 Intake Total 1721 1022.4 Output Total 1310 710 Balance 411 -710 1022.4 Intake: Intake, IV Titration 1081 1022.4 Amount Mvi, Adult No.4 with Vit 1081 1022.4 K 10 ml Trace (Conc-1Ml/ Dose) 1 ml Sodium Acetate 70 meq Potassium Phosphate 9 mmol Potassium Acetate 40 meq Magnesium Sulfate gm 1 gm Calcium Gluconate 1 gm In Amino Acids 5 %/ Dextrose 20 % 1,000 ml @ 54 mls/hr IV .Q20H2M [facility] Rx#:[id number] Oral 640 Output: Drainage 10 10 Abdomen 10 10 Urine 1200 400 Stool 100 300 Other: Voiding Method Indwelling Catheter Indwelling Catheter ABP, PAP, CO, CI - Last Documented Arterial Blood Pressure 139/52 - Exam General: [Patient sleepy, awakens to name, oriented x 3, sitting up in bed, no acute distress. HEENT: [PERRL. EOMI. No pharyngeal erythema or exudate.] Neck: Supple, no JVD Cardiac: Heart regular in rate and rhythm. No murmur Lungs: [Unlabored, equal air entry, clear to auscultation bilaterally.] Abdomen: Soft, functioning colostomy.Positive bowel sounds. Extremes: Positive edema,no cyanosis Skin: [No rash, warm and dry. Stage II left buttock pressure injury -foam with border dressing.] Neurologic: Cranial nerves II through XII grossly intact, generalized weakness. - Labs CBC & Chem 7: 01/04/25 13:30 01/04/25 04:44 Labs: Abnormal Lab Results - Last 24 Hours (Table) 01/03/25 01/03/25 01/03/25 Range/Units 12:00 17:13 20:04 Sodium (137-145) mmol/L BUN (7-17) mg/dL Glucose (74-99) mg/dL POC Glucose (mg/dL) 259 H 205 H 147 H (70-110) mg/dL Calcium (8.4-10.2) mg/dL 01/04/25 01/04/25 Range/Units 04:44 07:11 Sodium 131 L (137-145) mmol/L BUN 36 H (7-17) mg/dL Glucose 137 H (74-99) mg/dL POC Glucose (mg/dL) 199 H (70-110) mg/dL Calcium 7.8 L (8.4-10.2) mg/dL Assessment and Plan Assessment: (1) sepsis, septic shock secondary to pneumoperitoneum, intra-abdominal abscesses with sigmoid diverticulitis (2) Bacteremia, E. coli Current Visit: Yes Status: Acute Code(s): R78.81 - BACTEREMIA SNOMED Code(s): 8685772 (3) Pancytopenia Current Visit: Yes Status: Acute Code(s): D61.818 - OTHER PANCYTOPENIA SNOMED Code(s): 920663489 (4) Perforated diverticulum Current Visit: Yes Status: Acute Priority: High Code(s): K57.80 - DVTRCLI OF INTEST, PART UNSP, W PERF AND ABSCESS W/O BLEED SNOMED Code(s): 94474526 (5) Perforation of sigmoid colon due to diverticulitis, status post sigmoid c olectomy, drainage of interloop abscess, proximal laminectomy on 12/26/2024 with right femoral IVC placed on 12/28/2024 Current Visit: Yes Status: Acute Code(s): K57.20 - DVTRCLI OF LG INT W PERFORATION AND ABSCESS W/O BLEEDING SNOMED Code(s): 2145388932936271 (6) Pneumoperitoneum Current Visit: Yes Status: Acute Code(s): K66.8 - OTHER SPECIFIED DISORDERS OF PERITONEUM SNOMED Code(s): 61598085 (7) S/P colectomy Current Visit: Yes Status: Acute Code(s): Z90.49 - ACQUIRED ABSENCE OF OTHER SPECIFIED PARTS OF DIGESTIVE TRACT SNOMED Code(s): 329648026 (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 Current Visit: Yes Status: Acute Code(s): E11.59 - TYPE 2 DIABETES MELLITUS WITH OTH CIRCULATORY COMPLICATIONS SNOMED Code(s): 09615766 (9) Coronary artery 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 Current Visit: No Status: Acute Code(s): E11.59 - TYPE 2 DIABETES MELLITUS WITH OTH CIRCULATORY COMPLICATIONS; I25.10 - ATHSCL HEART DISEASE OF [place] CORONARY ARTERY W/O ANG PCTRS SNOMED Code(s): 80806584903976621 (10) Deep vein thrombosis (DVT) of lower extremity, Current Visit: No Status: Acute Priority: Medium Code(s): I82.409 - ACUTE EMBOLISM AND THOMBOS UNSP DEEP VN UNSP LOWER EXTREMITY SNOMED Code(s): 978095934 (11) H/O four vessel coronary artery bypass graft Current Visit: No Status: Acute Code(s): Z95.1 - PRESENCE OF AORTOCORONARY BYPASS GRAFT SNOMED Code(s): 311449491 (12) Hypertension Current Visit: No Status: Acute Code(s): I10 - ESSENTIAL (PRIMARY) HYPERTENSION SNOMED Code(s): 84476528 (13) Multiple myeloma, maintained on outpatient chemotherapy Current Visit: No Status: Acute Code(s): C90.00 - MULTIPLE MYELOMA NOT HAVING ACHIEVED REMISSION SNOMED Code(s): 526191332 (14) acute on chronic blood loss anemia, status post 4 unit of packed RBCs, status post DDAVP (15) thrombocytopenia (16) acute kidney injury secondary to ATN, related to abdominal sepsis, resolved. No evidence of hydronephrosis reported per CT (17) metabolic acidosis secondary to the above ,status post bicarb drip, improved (18) hypervolemic hyponatremia (19) fluid volume overload (20) left buttock stage II pressure injury, present on admission Plan: Continue on current medication regimen ,monitoring and symptomatic treatment. Diet advanced yesterday with weaning of TPN as per general surgery.close monitoring of Accu-Cheks. Patient requires assistance with all meals and snacks's due to significant weakness. Discussed with RN. Zosyn continues as per infectious disease. Pain management-encourage use of oral.Earlier in this admission patient did require packed RBCs, DDAVP with aspirin and Eliquis placed on hold-resumption of anticoagulation as per hematology; currently with femoral IVC filter. Aggressive pulmonary toileting with incentive spirometer reinforced. PT/OT .Close monitoring of electrolytes and hemoglobin/platelets with repeat labs ordered for a.m. Discharge planning this week to [facility], pending patient continues to progress. The impression and plan of care has been dictated as directed. : I performed a history and examination of this patient, discussed the same with the dictator. I agree with the dictator's note ,documented as a scribe. Any additional findings or plans will be noted.
[2025-01-04] MEDS: COLLAGENASE 250 UNIT/GM OINTMENT 30 GM TUBE TOPICAL SCH (10:08)
[2025-01-04 12:18] LABS: Glucose,Whole Blood 236 mg/dL (70-110)
--- NOTE | 2025-01-04 13:08 | P.PN ---
Subjective Progress Note Date: 01/04/25 SURGICAL PROGRESS NOTE CHIEF COMPLAINT: Perforated diverticulitis with abscess HISTORY OF PRESENT ILLNESS: Patient lying in bed comfortably. Her ostomy is functioning. Patient is still very weak. She is requiring assistance with eating. Denies any nausea or vomiting. She reports eating regular diet over the weekend. Oral intake slightly decreased. Afebrile. PHYSICAL EXAM: VITAL SIGNS: Reviewed. GENERAL: Well-developed in no acute distress. ABDOMEN: Soft. Nondistended. Midline incision clean dry and intact. Ostomy functioning NEUROLOGIC: awake and alert ASSESSMENT: 1. Perforated diverticulitis with abscess 2. E. coli bacteremia 3. History of multiple myeloma PLAN: -Continue regular diet -Wean off TPN -Clean midline incision with chlorhexidine wipe daily -Continue antibiotics per ID -Continue pain management -Encourage patient to increase activity level -market garden worker is working on placement for patient -SCDs for DVT prophylaxis Physician [employer] note has been reviewed by physician. Signing provider agrees with the documented findings, assessment, and plan of care. Objective - Vital Signs Vital signs: Vital Signs Temp 97.6 F 01/04/25 07:05 Pulse 80 01/04/25 11:01 Resp 18 01/04/25 08:00 BP 130/56 01/04/25 07:05 Pulse Ox 98 01/04/25 07:05 FiO2 35 12/31/24 07:46 Intake & Output 01/03/25 01/04/25 01/04/25 18:59 06:59 18:59 Intake Total 1721 1224.9 Output Total 4064 166 5314 Balance 411 -710 -75.1 Intake: Intake, IV Titration 1081 1224.9 Amount Mvi, Adult No.4 with Vit 1081 1224.9 K 10 ml Trace (Conc-1Ml/ Dose) 1 ml Sodium Acetate 70 meq Potassium Phosphate 9 mmol Potassium Acetate 40 meq Magnesium Sulfate gm 1 gm Calcium Gluconate 1 gm In Amino Acids 5 %/ Dextrose 20 % 1,000 ml @ 54 mls/hr IV .Q20H2M [facility] Rx#:[id number] Oral 640 Output: Drainage 10 10 Abdomen 10 10 Urine 4979 684 7868 Stool 100 300 300 Other: Voiding Method Indwelling Catheter Indwelling Catheter Indwelling Catheter ABP, PAP, CO, CI - Last Documented Arterial Blood Pressure 139/52 - Labs CBC & Chem 7: 01/02/25 05:38 01/04/25 04:44 Labs: Abnormal Lab Results - Last 24 Hours (Table) 01/03/25 01/03/25 01/04/25 Range/Units 17:13 20:04 04:44 Sodium 131 L (137-145) mmol/L BUN 36 H (7-17) mg/dL Glucose 137 H (74-99) mg/dL POC Glucose (mg/dL) 205 H 147 H (70-110) mg/dL Calcium 7.8 L (8.4-10.2) mg/dL 01/04/25 01/04/25 Range/Units 07:11 12:13 Sodium (137-145) mmol/L BUN (7-17) mg/dL Glucose (74-99) mg/dL POC Glucose (mg/dL) 199 H 236 H (70-110) mg/dL Calcium (8.4-10.2) mg/dL
[2025-01-04 13:49] LABS: HCT 28.9 % (34.0-46.0); HGB 9.5 gm/dL (11.4-16.0); MCH 29.3 pg (25.0-35.0); MCHC 33.1 g/dL (31.0-37.0); MCV 88.6 fL (80.0-100.0); Mean Platelet Volume 8.7; Platelet Count 209 k/uL (150-450); RBC 3.26 m/uL (3.80-5.40); RDW 15.6 % (11.5-15.5); WBC 6.4 k/uL (3.8-10.6)
--- NOTE | 2025-01-04 14:37 | P.PN ---
Subjective Progress Note Date: 01/04/25 This is a 79-year-old female patient with known history of coronary artery disease and previous bypass surgery and known history of diabetes mellitus type 2 and multiple myeloma and the patient was diagnosed having multiple myeloma back in May 2024 and the patient had significant back pain with pathologic bone marrow infiltration throughout the lumbar spine and pelvic area with a pathologic fracture of the L2 vertebral body and osseous extension of the tumor causing left neural foraminal narrowing at the level of L1-L2 and L2-L3. The patient was started on treatment with palliative radiation therapy and following that she was started on RVD treatment and she completed cycle 2 on 12/24/2024. Subsequently, the patient gets hospitalized for an extensive left lower extremity DVT involving a clot extending from the left iliac to the popliteal vein and the patient was started on anticoagulation with Eliquis. She was discharged to be readmitted for abdominal pain and this was assumed to be rel ated to constipation. She was discharged to be readmitted for ongoing abdominal pain and the patient was diagnosed having acute diverticulitis. Yesterday, the patient was taken to the operating room as the follow-up CAT scan of the abdomen showed a complicated diverticulitis of the sigmoid colon with perforation and pneumoperitoneum. There was 8 cm gas/fluid collection consistent with an absces s. She also had cholelithiasis and diffuse anasarca. In the operating room, the patient was found to have an abdominal abscess that was drained. The patient had sigmoid colectomy and diverting colostomy. Postop, the patient was kept intubated and placed on the mechanical ventilator and she was transferred to the ICU. Noted her anticoagulation is currently on hold and she is not showing any signs of bleeding. He is currently off anticoagulants. Vascular surgery has seen the patient and patient is being contemplated for IVC filter placement. Platelet counts are also low. This morning, she is on propofol at rate of 30, she is on assist-control mode at rate of 16, tidal volume of 350, F iO2 40% with a PEEP of 5. Blood gas showed a pH of 7.48 with a pCO2 of 30 and pO2 175. NG tube output is minimal and fluid balance is +2.7 L of the patient received several fluid boluses yesterday. She remains on Alvin-Synephrine at 1.3 mcg. Producing urine output. White cell count is 14.7, hemoglobin is 8.7 and platelet count is at 73. The non-anion gap metabolic acidosis is improved and the patient serum bicarb is up to 22. Sodium levels at 127. Potassium is at 4.2. LFTs are normal. Blood sugar is at 363. Chest x-ray showed atelectatic changes lung base bilaterally. Orotracheal tube is in good location. Postthoracotomy changes related to previous heart surgery and some pulm vascular congestion is also present. The patient is currently on IV Zosyn. She will be started on TPN for nutritional support within the next 24 to 48 hours. Blood cultures positive for E. coli. Patient was seen today on 12/28/2024, patient remains in the ICU, she is on mechanical ventilation, and the patient just came back from IVC filter placement by vascular surgery. Patient is on assist-control rate of 16 tidal volume 350 FiO2 35% and PEEP of 5 ABG showed a pO2 of 150 pCO2 33 pH of 7.45 hence patient was transitioned to assist-control rate of 12 tidal volume 400 FiO2 30% and PEEP of 5 patient is also receiving a unit of packed RBCs for hemoglobin of 6.7. Requiring multiple drips including norepinephrine at 0.02 mcg/kg/min she is on TPN at 30 cc/h propofol 40 mg/kg/min and amiodarone 0.5 mg/min. Patient is also receiving insulin at 11.1 units/h. Her Solu-Cortef dose was cut down and the patient remains empirically on Zosyn. Today is postoperative day #2, patient is status post colectomy with ostomy and MILADIS drain placement. Again her presentation was mostly a presentation of abdominal sepsis. Chest x-ray today showed mostly bibasilar atelectasis., No evidence of pulmonary edema., And I doubt pneumonia. WBC count today 13.2 hemoglobin 6.7 platelets are 47,000's. Sodium is 128 potassium 2.9 chloride 98 BUN 31 creatinine 1.01 patient has received a total of 3 units of packed RBCs since admission. Blood cultures are positive for E. coli. Sensitive to Zosyn Seen today on 12/29/2024, remains in the ICU, intubated and mechanically ventilated, on assist-control mode of mechanical ventilation, rate 12 tidal volume 400 FiO2 30% PEEP of 5 ABG showed a pO2 of 114 pCO2 3 0 pH of 7.44 patient is requiring propofol at 45 mcg/kg/min she is not requiring any pressors today, patient is on TPN at 33 cc/h and IV fluid 0.9 normal saline at 75 cc/h. Her surgical site seems to be intact, ostomy seems to be pink, minimal bloody drainage into the ostomy bag. Patient is sedated, however I plan to discontinue propofol today and give the patient a weaning trial on Precedex. Her WBC count is 9.2 hemoglobin 8.7. Basic metabolic profile is relatively normal except for sodium of 128 renal profile is normal, chest x-ray showed mostly bibasilar atelectasis, no clear-cut evidence of infiltrate. Patient was seen today on 12/30/2024, patient remains in the ICU, however the patient was extubated yesterday, and extubation was successful. Patient is now on 2 L nasal cannula, she was initially extubated to BiPAP /5/35%, patient is awake, alert oriented x 3, does not seem to be in any distress, remains on TPN she is also on lipids. Her ostomy seems to be functioning quite well, her nasogastric tube was removed, my plan is to transfer the patient today to regular medical floor/[facility]. WBC count today is 9.3 hemoglobin 9.2 platelets remain low at 50,000 but improving, basic metabolic profile is normal BUN is 30 creatinine 0.96. Patient remains on hydrocortisone 50 mg IV push every 12 hours, remains on Dilaudid as needed, patient is also on Zosyn and on Protonix. The patient is seen today December 31, 2024 in follow-up on the regular medical floor. She was transferred out of the intensive care unit yesterday. She is resting in bed. Awake and alert in no acute distress. Maintaining good O2 saturations in the 90s on 2 L/min per nasal cannula. She is afebrile. Hemodynamically stable. She did wear BiPAP last evening 09/17 and 35% FiO2. She is being nourished with TPN and lipids. Sodium 130. Potassium 3.1. Bicarb 35. Creatinine 0.79. Glucose 244. Ostomy functioning. He is tolerating a clear liquid diet. Today January 01, 2025 in follow-up on the regular medical floor. She is currently resting in bed. Awake and alert in no acute distress. Maintaining good O2 saturations in the 90s on 2 L/min per nasal cannula. She is wearing the BiPAP at night 12/5 and 35% FiO2. Her diet has been been advanced to full liquids. Ostomy functioning. She remains on TPN at 54 mL/h. Continued on Zosyn. Continued on Solu-Cortef. She needs increased encouragement regarding the use of the incentive spirometer. White count 6.0. Hemoglobin 8.7. Platelets 113. Sodium 131. Potassium 3.6. Bicarb 26. BUN 34. Creatinine 0.66. Glucose 230. The patient is seen today January 02, 2025 in follow-up on the regular medical floor. She is currently sitting up in bed. Having breakfast. Denies any worsening shortness of breath, cough or congestion. Maintaining O2 saturations up to 100% on 2 L/min per nasal cannula. She has been afebrile. Hemodynamica lly stable. Still with some mild abdominal discomfort. She remains on TPN at 54 mLs per hour. Remains on Zosyn. Remains on Solu-Cortef. Continued on bronchodilators. Increased encouragement regarding the use of the incentive spirometer. White count 5.5. Hemoglobin 8.7. Platelets 136. Sodium 134. Potassium 3.5. Bicarb 24. BUN 37. Creatinine 0.61. Glucose 207. The patient is seen today January 03, 2025 in follow-up on the regular medical floor. She is awake and alert in no acute distress. Resting comfortably in bed. Maintaining O2 saturations in the 90s on room air oxygen. She is afebrile. Hemodynamically stable. Sodium 132. Potassium 3.9. Bicarb 27. BUN 36. Creatinine 0.57. Glucose 207. She is continued on DuoNeb inhalations. Antibiotics in the form of Zosyn. She remains on Decadron on Mondays. Continued on TPN at 54 mL/h along with lipids as scheduled. She is status post 4 units of packed red blood cells this admission. Current hemoglobin 8.7. The patient is seen today January 04, 2025 in follow-up on the regular medical floor. She is currently resting comfortably in bed. Awake and alert in no acute distress. Maintaining good O2 saturations in the 90s on room air. She is on a clear liquid diet. She is also being nourished with TPN at 54 mL/h. She has normal saline at 10 mL/h. She is continued on DuoNeb inhalations. Remains on Lasix 40 mg IV daily. She remains on Zosyn. Initial blood cultures were positive for E. coli. Sputum culture revealed no growth. White count 6.4. Hemoglobin 9.5. Platelets 209. Sodium 131. Potassium 4.0. Bicarb 28. BUN 36. Creatinine 0.55. Glucose 137. Objective - Vital Signs Vital signs: Vital Signs Temp 97.6 F 01/04/25 07:05 Pulse 80 01/04/25 11:01 Resp 18 01/04/25 08:00 BP 130/56 01/04/25 07:05 Pulse Ox 98 01/04/25 07:05 FiO2 35 12/31/24 07:46 Intake & Output 01/03/25 01/04/25 01/04/25 18:59 06:59 18:59 Intake Total 1721 1224.9 Output Total 6672 036 4592 Balance 411 -710 -75.1 Weight 86.8 kg Intake: Intake, IV Titration 1081 1224.9 Amount Mvi, Adult No.4 with Vit 1081 1224.9 K 10 ml Trace (Conc-1Ml/ Dose) 1 ml Sodium Acetate 70 meq Potassium Phosphate 9 mmol Potassium Acetate 40 meq Magnesium Sulfate gm 1 gm Calcium Gluconate 1 gm In Amino Acids 5 %/ Dextrose 20 % 1,000 ml @ 54 mls/hr IV .Q20H2M [facility] Rx#:[id number] Oral 640 Output: Drainage 10 10 Abdomen 10 10 Urine 4812 244 4163 Stool 100 300 300 Other: Voiding Method Indwelling Catheter Indwelling Catheter Indwelling Catheter ABP, PAP, CO, CI - Last Documented Arterial Blood Pressure 139/52 - Exam GENERAL EXAM: Alert, 79-year-old female, resting in bed, on room air, in no apparent distress. HEAD: Normocephalic. EYES: Normal reaction of pupils, equal size. NOSE: Clear with pink turbinates. THROAT: No erythema or exudates. NECK: No masses, no JVD. CHEST: No chest wall deformity. LUNGS: Equal air entry with no crackles, wheeze, rhonchi or dullness. CVS: S1 and S2 normal with no audible murmur, regular rhythm. ABDOMEN: Ostomy functioning. Dressing dry and intact. No hepatosplenomegaly, normal bowel sounds, no guarding or rigidity. SPINE: No scoliosis or deformity SKIN: No rashes CENTRAL NERVOUS SYSTEM: No focal deficits, tone is normal in all 4 extremities. EXTREMITIES: There is no peripheral edema. No clubbing, no cyanosis. Peripheral pulses are intact. - Labs CBC & Chem 7: 01/04/25 13:30 01/04/25 04:44 Labs: Abnormal Lab Results - Last 24 Hours (Table) 01/03/25 01/03/25 01/04/25 Range/Units 17:13 20:04 04:44 RBC (3.80-5.40) m/uL Hgb (11.4-16.0) gm/dL Hct (34.0-46.0) % RDW (11.5-15.5) % Sodium 131 L (137-145) mmol/L BUN 36 H (7-17) mg/dL Glucose 137 H (74-99) mg/dL POC Glucose (mg/dL) 205 H 147 H (70-110) mg/dL Calcium 7.8 L (8.4-10.2) mg/dL 01/04/25 01/04/25 01/04/25 Range/Units 07:11 12:13 13:30 RBC 3.26 L (3.80-5.40) m/uL Hgb 9.5 L (11.4-16.0) gm/dL Hct 28.9 L (34.0-46.0) % RDW 15.6 H (11.5-15.5) % Sodium (137-145) mmol/L BUN (7-17) mg/dL Glucose (74-99) mg/dL POC Glucose (mg/dL) 199 H 236 H (70-110) mg/dL Calcium (8.4-10.2) mg/dL Assessment and Plan Assessment: Septic shock secondary to pneumoperitoneum and intra-abdominal abscesses with sigmoid diverticulitis Acute hypoxic respiratory failure secondary to abdominal sepsis and septic shock he remained on the mechanical ventilator postoperatively. Extubated on 12/29/2024 Bacteremia secondary to E. coli secondary to above. Remains on Zosyn Acute sigmoid diverticulitis with pneumoperitoneum requiring exploratory laparotomy, drainage of interloop abscess and sigmoid colectomy with diverting colostomy postoperative day #8. 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 Acute blood loss anemia superimposed o chronic anemia as noted above Plan: The patient was seen and evaluated Labs and medications reviewed Stable on room air oxygen Remains on Zosyn Remains on bronchodilators Increase use of the incentive spirometer Increase her activity as tolerated Remains on TPN and lipids Diet advanced per surgical services Plan is for [facility] on [facility] at discharge I have personally seen and examined the patient, performed the documentation and the assessment and plan as written. Number of minutes spent on the visit: 10 Dictation was produced using [employer] dictation software. Please excuse any grammatical, word or spelling errors.
--- NOTE | 2025-01-04 16:26 | P.PN ---
Subjective Progress Note Date: 01/04/25 Principal diagnosis: Reason for follow-up is bacteremia perforated diverticulitis and abscess Patient is a 79-year-old female with a past medical history significant for Coronary Artery Disease (CAD), Cancer, Diabetes Mellitus, Hyperlipidemia, Hypertension, Thyroid Disorder presenting to the hospital for evaluation of abnormal CT that was done for abdominal pain with concern for perforated sigmoid diverticulitis did have a positive blood culture with E. coli probably this consultation.Patient is status post laparotomy sigmoid colectomy drainage of the interloop abscess and proximal omentectomy patient subsequent has been admitted to ICU on the vent. On today's evaluation that is 01/04/2025, patient has been afebrile, patient is breathing comfortably and is currently on room air, patient denies having any significant cough no chest pain, patient denies nausea vomiting and abdominal pain is currently controlled. Patient white count 6.4, creatinine 0.55 Objective - Vital Signs Vital signs: Vital Signs Temp 97.6 F 01/04/25 07:05 Pulse 80 01/04/25 11:01 Resp 18 01/04/25 08:00 BP 130/56 01/04/25 07:05 Pulse Ox 98 01/04/25 07:05 FiO2 35 12/31/24 07:46 Intake & Output 01/03/25 01/04/25 01/04/25 18:59 06:59 18:59 Intake Total 1721 1224.9 Output Total 7228 527 2792 Balance 411 -710 -75.1 Intake: Intake, IV Titration 1081 1224.9 Amount Mvi, Adult No.4 with Vit 1081 1224.9 K 10 ml Trace (Conc-1Ml/ Dose) 1 ml Sodium Acetate 70 meq Potassium Phosphate 9 mmol Potassium Acetate 40 meq Magnesium Sulfate gm 1 gm Calcium Gluconate 1 gm In Amino Acids 5 %/ Dextrose 20 % 1,000 ml @ 54 mls/hr IV .Q20H2M [facility] Rx#:[id number] Oral 640 Output: Drainage 10 10 Abdomen 10 10 Urine 2406 988 4838 Stool 100 300 300 Other: Voiding Method Indwelling Catheter Indwelling Catheter Indwelling Catheter ABP, PAP, CO, CI - Last Documented Arterial Blood Pressure 139/52 - Exam GENERAL DESCRIPTION: An elderly female intubated on the vent RESPIRATORY SYSTEM: Unlabored breathing , decreased breath sounds at bases HEART: S1 S2 regular rate and rhythm , ABDOMEN: Soft , mild tenderness EXTREMITIES: No edema feet - Labs CBC & Chem 7: 01/04/25 13:30 01/04/25 04:44 Labs: Abnormal Lab Results - Last 24 Hours (Table) 01/03/25 01/03/25 01/04/25 Range/Units 17:13 20:04 04:44 Sodium 131 L (137-145) mmol/L BUN 36 H (7-17) mg/dL Glucose 137 H (74-99) mg/dL POC Glucose (mg/dL) 205 H 147 H (70-110) mg/dL Calcium 7.8 L (8.4-10.2) mg/dL 01/04/25 01/04/25 Range/Units 07:11 12:13 Sodium (137-145) mmol/L BUN (7-17) mg/dL Glucose (74-99) mg/dL POC Glucose (mg/dL) 199 H 236 H (70-110) mg/dL Calcium (8.4-10.2) mg/dL Assessment and Plan (1) Perforation of sigmoid colon due to diverticulitis Current Visit: Yes Status: Acute Code(s): K57.20 - DVTRCLI OF LG INT W PERFORATION AND ABSCESS W/O BLEEDING SNOMED Code(s): 1341860918855871 (2) Bacteremia Current Visit: Yes Status: Acute Code(s): R78.81 - BACTEREMIA SNOMED Code(s): 6393618 Plan: 1patient with E. coli bacteremia source likely abdominal in this patient with evidence of abnormal CT with free air concerning for perforated diverticulitis but did not mention any abscess, patient did have a repeat CT that has been suggestive of perforated diverticulitis and abscess and patient status post laparotomy sigmoid colectomy drainage of the interloop abscess procedure completed on 12/26/2024 2patient is afebrile patient white count has normalized 3patient is currently being treated with Zosyn while inpatient and will be transition to oral Ceftin and Flagyl on discharge once cleared by other presales consultant Dictation was produced using [employer] dictation software. please excuse any grammatical, word or spelling errors Time with Patient: Less than 30
[2025-01-04 17:17] LABS: Glucose,Whole Blood 247 mg/dL (70-110)
[2025-01-04 20:10] LABS: Glucose,Whole Blood 244 mg/dL (70-110)
[2025-01-04] MEDS: HEPARIN SODIUM,PORCINE 5,000 UNIT/ML 1 ML VIAL SQ SCH (20:20)
[2025-01-04] MEDS: atenoloL 25 MG TAB PO SCH (20:20)
[2025-01-05] MEDS ORDERED: MVI, ADULT NO.4 WITH VIT K 10 ML, TRACE (CONC-1ML/DOSE) 1 ML, SODIUM ACETATE 40 MEQ, PO... IV SCH (05:00)
[2025-01-05 05:24] LABS: African American GFR (CKD) >90 (>60 ml/min/1.73 sqM); Anion Gap 6 mmol/L; Blood Urea Nitrogen 35 mg/dL (7-17); Calcium 8.4 mg/dL (8.4-10.2); Carbon Dioxide 27 mmol/L (22-30); Chloride 100 mmol/L (98-107); Glucose 150 mg/dL (74-99); Non-African American GFR(CKD) 88 (>60 ml/min/1.73 sqM); Sodium 133 mmol/L (137-145)
[2025-01-05 05:55] LABS: Phosphorus 3.5 mg/dL (2.5-4.5); Potassium 4.6 mmol/L (3.5-5.1)
[2025-01-05] MEDS ORDERED: LEVOTHYROXINE 112 MCG TAB PO SCH (06:30)
[2025-01-05] MEDS: LEVOTHYROXINE 100 MCG TAB PO ONE (06:36)
[2025-01-05 07:18] LABS: Glucose,Whole Blood 156 mg/dL (70-110)
[2025-01-05 10:53] LABS: Anisocytosis Slight; HCT 33.9 % (34.0-46.0); HGB 10.8 gm/dL (11.4-16.0); MCHC 31.9 g/dL (31.0-37.0); MCV 90.7 fL (80.0-100.0); Mean Platelet Volume 9.5; Platelet Count 179 k/uL (150-450); RBC 3.73 m/uL (3.80-5.40); RDW 16.1 % (11.5-15.5); WBC 4.8 k/uL (3.8-10.6)
--- NOTE | 2025-01-05 11:02 | P.PN ---
Subjective Progress Note Date: 01/05/25 SURGICAL PROGRESS NOTE CHIEF COMPLAINT: Perforated diverticulitis with abscess HISTORY OF PRESENT ILLNESS: Postop day #10 status post sigmoid colectomy, drainage of interloop abscess and proximal omentectomy. Patient lying in bed comfortably. Her ostomy is functioning. She is tolerating regular diet. WBC 4.8 Hgb 10.8 platelets 179. Patient being discharged to ECF possibly later today. PHYSICAL EXAM: VITAL SIGNS: Reviewed. GENERAL: Well-developed in no acute distress. ABDOMEN: Soft. Nondistended. Midline incision clean dry and intact. Stoma beefy red. New colostomy bag intact NEUROLOGIC: awake and alert ASSESSMENT: 1. Perforated diverticulitis with abscess 2. E. coli bacteremia 3. History of multiple myeloma PLAN: -Patient can be discharge from surgical standpoint -Discontinue MILADIS drain today -Continue regular diet -Clean midline incision with chlorhexidine wipe daily -Discharge antibiotics per ID service -DVT prophylaxis subcu heparin Physician Drop Shipment Clerk note has been reviewed by physician. Signing provider agrees with the documented findings, assessment, and plan of care. Objective - Vital Signs Vital signs: Vital Signs Temp 97.6 F 01/05/25 07:04 Pulse 87 01/05/25 07:47 Resp 16 01/05/25 07:47 BP 124/77 01/05/25 07:04 Pulse Ox 96 01/05/25 07:04 FiO2 35 12/31/24 07:46 Intake & Output 01/04/25 01/05/25 01/05/25 18:59 06:59 18:59 Intake Total 1224.9 760 Output Total 1300 900 300 Balance -75.1 -140 -300 Weight 86.8 kg Intake: IV 170 0.9 @ 10 70 Piperacillin-Tazobactam 3 100 .375 gm In Sodium Chloride 0.9% 100 ml @ 25 mls/hr IVPB Q8H [facility] Rx#: [id number] Intake, IV Titration 1224.9 Amount Mvi, Adult No.4 with Vit 1224.9 K 10 ml Trace (Conc-1Ml/ Dose) 1 ml Sodium Acetate 70 meq Potassium Phosphate 9 mmol Potassium Acetate 40 meq Magnesium Sulfate gm 1 gm Calcium Gluconate 1 gm In Amino Acids 5 %/ Dextrose 20 % 1,000 ml @ 54 mls/hr IV .Q20H2M [facility] Rx#:[id number] Oral 590 Output: Urine 1000 900 Stool 300 300 Other: Voiding Method Indwelling Catheter Indwelling Catheter Indwelling Catheter ABP, PAP, CO, CI - Last Documented Arterial Blood Pressure 139/52 - Labs CBC & Chem 7: 01/05/25 10:01 01/05/25 04:53 Labs: Abnormal Lab Results - Last 24 Hours (Table) 01/04/25 01/04/25 01/04/25 Range/Units 12:13 13:30 17:15 RBC 3.26 L (3.80-5.40) m/uL Hgb 9.5 L (11.4-16.0) gm/dL Hct 28.9 L (34.0-46.0) % RDW 15.6 H (11.5-15.5) % Sodium (137-145) mmol/L BUN (7-17) mg/dL Glucose (74-99) mg/dL POC Glucose (mg/dL) 236 H 247 H (70-110) mg/dL 01/04/25 01/05/25 01/05/25 Range/Units 20:09 04:53 07:09 RBC (3.80-5.40) m/uL Hgb (11.4-16.0) gm/dL Hct (34.0-46.0) % RDW (11.5-15.5) % Sodium 133 L (137-145) mmol/L BUN 35 H (7-17) mg/dL Glucose 150 H (74-99) mg/dL POC Glucose (mg/dL) 244 H 156 H (70-110) mg/dL 01/05/25 Range/Units 10:01 RBC 3.73 L (3.80-5.40) m/uL Hgb 10.8 L (11.4-16.0) gm/dL Hct 33.9 L (34.0-46.0) % RDW 16.1 H (11.5-15.5) % Sodium (137-145) mmol/L BUN (7-17) mg/dL Glucose (74-99) mg/dL POC Glucose (mg/dL) (70-110) mg/dL
--- NOTE | 2025-01-05 11:04 | P.PN ---
Subjective Patient is seen in follow-up for acute kidney injury. RODRIGUEZ resolved. Tolerating oral intake. Vital signs are stable. General: Resting in bed. HEENT: On room air. LUNGS: No audible rhonchi or wheezes. HEART: Rate and Rhythm are regular. ABDOMEN: Colostomy noted. EXTREMITITES: 1+ edema. Objective - Vital Signs Vital signs: Vital Signs Temp 97.6 F 01/05/25 07:04 Pulse 87 01/05/25 07:47 Resp 16 01/05/25 07:47 BP 124/77 01/05/25 07:04 Pulse Ox 96 01/05/25 07:04 FiO2 35 12/31/24 07:46 Intake & Output 01/04/25 01/05/25 01/05/25 18:59 06:59 18:59 Intake Total 1224.9 760 Output Total 1300 900 300 Balance -75.1 -140 -300 Weight 86.8 kg Intake: IV 170 0.9 @ 10 70 Piperacillin-Tazobactam 3 100 .375 gm In Sodium Chloride 0.9% 100 ml @ 25 mls/hr IVPB Q8H [facility] Rx#: [id number] Intake, IV Titration 1224.9 Amount Mvi, Adult No.4 with Vit 1224.9 K 10 ml Trace (Conc-1Ml/ Dose) 1 ml Sodium Acetate 70 meq Potassium Phosphate 9 mmol Potassium Acetate 40 meq Magnesium Sulfate gm 1 gm Calcium Gluconate 1 gm In Amino Acids 5 %/ Dextrose 20 % 1,000 ml @ 54 mls/hr IV .Q20H2M [facility] Rx#:[id number] Oral 590 Output: Urine 1000 900 Stool 300 300 Other: Voiding Method Indwelling Catheter Indwelling Catheter Indwelling Catheter ABP, PAP, CO, CI - Last Documented Arterial Blood Pressure 139/52 - Labs CBC & Chem 7: 01/05/25 10:01 01/05/25 04:53 Labs: Abnormal Lab Results - Last 24 Hours (Table) 01/04/25 01/04/25 01/04/25 Range/Units 12:13 13:30 17:15 RBC 3.26 L (3.80-5.40) m/uL Hgb 9.5 L (11.4-16.0) gm/dL Hct 28.9 L (34.0-46.0) % RDW 15.6 H (11.5-15.5) % Sodium (137-145) mmol/L BUN (7-17) mg/dL Glucose (74-99) mg/dL POC Glucose (mg/dL) 236 H 247 H (70-110) mg/dL 01/04/25 01/05/25 01/05/25 Range/Units 20:09 04:53 07:09 RBC (3.80-5.40) m/uL Hgb (11.4-16.0) gm/dL Hct (34.0-46.0) % RDW (11.5-15.5) % Sodium 133 L (137-145) mmol/L BUN 35 H (7-17) mg/dL Glucose 150 H (74-99) mg/dL POC Glucose (mg/dL) 244 H 156 H (70-110) mg/dL 01/05/25 Range/Units 10:01 RBC 3.73 L (3.80-5.40) m/uL Hgb 10.8 L (11.4-16.0) gm/dL Hct 33.9 L (34.0-46.0) % RDW 16.1 H (11.5-15.5) % Sodium (137-145) mmol/L BUN (7-17) mg/dL Glucose (74-99) mg/dL POC Glucose (mg/dL) (70-110) mg/dL Assessment and Plan Plan: Assessment: 1. Acute kidney injury secondary to septic ATN. Resolved. CT scan from December 24, 2024 showed no evidence of hydronephrosis. 2. Multiple myeloma maintained on chemotherapy outpatient. 3. Acute diverticulitis with perforation being followed by surgery. Status post sigmoid colectomy with drainage of abscess December 26, 2024. 4. Acute blood loss anemia status post blood transfusion this admission. Status post IV DDAVP. 5. Metabolic acidosis secondary to acute kidney injury and IV fluids. Status post bicarb drip. Improved. 6. Hyponatremia secondary to acute kidney injury. Hypervolemic. 7. E. coli bacteremia on antibiotics. 8. Volume overload. Plan: Maintain IV Lasix. Encouraged oral intake.
--- NOTE | 2025-01-05 11:14 | P.DS ---
Providers Date of admission: 12/24/24 18:25 Expected date of discharge: 01/05/25 Attending physician: Mark Park Consults: 12/24/24 18:20 Consult Physician Urgent Consulting Provider: Jim Waggoner Consult Reason/Comments: multiple myeloma Do you want consulting provider notified?: Yes Consult Physician Urgent Consulting Provider: Eliezer Rodriges Consult Reason/Comments: perforated diverticulitis Do you want consulting provider notified?: Already Contacted 12/25/24 09:29 Consult Physician Urgent Consulting Provider: Kirby Briscoe Consult Reason/Comments: PICC line arm placement Do you want consulting provider notified?: Yes 12/25/24 11:01 Consult Physician Routine Consulting Provider: Juan Franklin Consult Reason/Comments: Perforated diverticulitis, bacteremia Do you want consulting provider notified?: Yes 12/26/24 15:51 Consult Physician Stat Consulting Provider: Amber Rainey Consult Reason/Comments: icu management Do you want consulting provider notified?: Already Contacted Primary care physician: [facility] Course: Final Diagnosis: (1) sepsis, septic shock secondary to pneumoperitoneum, intra-abdominal absce sses with sigmoid diverticulitis (2) Bacteremia, E. coli Current Visit: Yes Status: Acute Code(s): R78.81 - BACTEREMIA SNOMED Code(s): 9320583 (3) Pancytopenia Current Visit: Yes Status: Acute Code(s): D61.818 - OTHER PANCYTOPENIA SNOMED Code(s): 301633027 (4) Perforated diverticulum Current Visit: Yes Status: Acute Priority: High Code(s): K57.80 - DVTRCLI OF INTEST, PART UNSP, W PERF AND ABSCESS W/O BLEED SNOMED Code(s): 48470233 (5) Perforation of sigmoid colon due to diverticulitis, status post sigmoid colectomy, drainage of interloop abscess, proximal laminectomy on 12/26/2024 with right femoral IVC placed on 12/28/2024 Current Visit: Yes Status: Acute Code(s): K57.20 - DVTRCLI OF LG INT W PERFORATION AND ABSCESS W/O BLEEDING SNOMED Code(s): 3581084429575596 (6) Pneumoperitoneum Current Visit: Yes Status: Acute Code(s): K66.8 - OTHER SPECIFIED DISORDERS OF PERITONEUM SNOMED Code(s): 74939207 (7) S/P colectomy Current Visit: Yes Status: Acute Code(s): Z90.49 - ACQUIRED ABSENCE OF OTHER SPECIFIED PARTS OF DIGESTIVE TRACT SNOMED Code(s): 129443235 (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 Current Visit: Yes Status: Acute Code(s): E11.59 - TYPE 2 DIABETES MELLITUS WITH OTH CIRCULATORY COMPLICATIONS SNOMED Code(s): 76928196 (9) Coronary artery 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 Current Visit: No Status: Acute Code(s): E11.59 - TYPE 2 DIABETES MELLITUS WITH OTH CIRCULATORY COMPLICATIONS; I25.10 - ATHSCL HEART DISEASE OF [place] CORONARY ARTERY W/O ANG PCTRS SNOMED Code(s): 74749472120084393 (10) Deep vein thrombosis (DVT) of lower extremity, Current Visit: No Status: Acute Priority: Medium Code(s): I82.409 - ACUTE EMBOLISM AND THOMBOS UNSP DEEP VN UNSP LOWER EXTREMITY SNOMED Code(s): 515481586 (11) H/O four vessel coronary artery bypass graft Current Visit: No Status: Acute Code(s): Z95.1 - PRESENCE OF AORTOCORONARY BYPASS GRAFT SNOMED Code(s): 713736872 (12) Hypertension Current Visit: No Status: Acute Code(s): I10 - ESSENTIAL (PRIMARY) HYPERTENSION SNOMED Code(s): 38678922 (13) Multiple myeloma, maintained on outpatient chemotherapy Current Visit: No Status: Acute Code(s): C90.00 - MULTIPLE MYELOMA NOT HAVING ACHIEVED REMISSION SNOMED Code(s): 372117455 (14) acute on chronic blood loss anemia, status post 4 unit of packed RBCs, status post DDAVP (15) thrombocytopenia (16) acute kidney injury secondary to ATN, related to abdominal sepsis, resolved. No evidence of hydronephrosis reported per CT (17) metabolic acidosis secondary to the above ,status post bicarb drip, improved (18) hypervolemic hyponatremia (19) fluid volume overload (20) left buttock stage II pressure injury, present on admission (21) depression over hospitalizations, medical debility. Further follow-up outpatient with psychiatry. PCP Dr. Park recommend starting patient on Re marciano at night. Hospital course:. Perforated diverticulum , complicated by multiple myeloma, still intubated Status post resected bowel secondary to perforated diverticulum postop day 3 patient awake with limited responses 12/30/2024 status post sigmoid colectomy, drainage of interloop abscess, proximal laminectomy on 12/26/2024 with right femoral IVC placed on 12/28/2024. maintained on TPN. Sodium improving, 131, bicarb 20, BUN 30, creatinine 0.96. Afebrile, Tmax 98, normal WBC, continues on Zosyn. Extubated yesterday, maintaining O2 sats in the high 90s on BiPAP 30% FiO2. Insulin drip transition to sliding scale with long-acting insulin, blood sugars controlled. 12/31/2024 transferred out of ICU to [facility] with telemetry. BiPAP during the night at 35% FiO2, currently maintaining O2 sats in the 90s on 2 L nasal cannula. Participated with PT this morning, performing range of motion repetitions of extremities. Tolerated exertion well. Maintained on TPN/lipids. minimal intake of clear liquid diet. Denies nausea or vomiting. Functioning ostomy. Pain controlled. Has not yet worked with her incentive spirometer this morning. Eliquis and aspirin remain on hold, hemoglobin pending. K 3.1, supplementation ordered. Blood sugars elevated in the 200s. Bicarb 35, creatinine 0.79. 01/01/2025 maintained on Zosyn, steroids. Afebrile, CBC pending. Eliquis and aspirin remains on hold for acute on chronic blood loss anemia; femoral IVC filter present. maintained on TPN and lipids for nutritional support. continues on clear liquid diet. Blood sugars in the 200s. Potassium 3.4, receiving supplementation. Pain controlled. Did not require BiPAP last night. Maintaining O2 sats in the high 90s to 100% on 2 L nasal cannula. Fluctuating hypertension with PRN IV push hydralazine in place. 01/04/2025 continues on Lasix IV push, generalized edema improving. Renal function stable. diet advanced to regular consistent carb diet yesterday with minimal intake. TPN weaning in progress as per surgery. Blood sugars controlled. patient exhibits weakness lifting arms-requires assistance and encouragement with all meals. Maintained on Zosyn. Afebrile. Denies chest pain, palpitations or shortness of breath. Maintaining O2 sats in the high 90s on room air. Denies pain currently. PT pending this morning, staff reports on Saturday patient was a total lift to chair. Prealbumin 30.3. Diet advanced yesterday with weaning of TPN as per general surgery.close monitoring of Accu-Cheks. Patient requires assistance with all meals and snacks 's due to significant weakness. Discussed with RN. Zosyn continues as per infectious disease. Pain management-encourage use of oral.Earlier in this admission patient did require packed RBCs, DDAVP with aspirin and Eliquis placed on hold-resumption of anticoagulation as per hematology; currently with femoral IVC filter. Aggressive pulmonary toileting with incentive spirometer reinforced. PT/OT .Close monitoring of electrolytes and hemoglobin/platelets with repeat labs ordered for a.m. Discharge planning this week to [facility], pending patient continues to progress. Discharge planning in progress for [facility] subacute rehab pending bed availability. Patient will be discharged in a stable condition with guarded prognosis pending DC antibiotics as per ID, anticoagulation recommendations as per oncology-patient currently has a femoral filter, final DC recommendations and clearance as per pulmonary and nephrology. The impression and plan of care has been dictated as directed. : I performed a history and examination of this patient, discussed the same with the dictator. I agree with the dictator's note ,documented as a scribe. Any additional findings or plans will be noted. Patient Condition at Discharge: Stable Plan - Discharge Summary Discharge Rx Participant: No New Discharge Prescriptions: New INSULIN LISPRO (HumaLOG) [HumaLOG] 0 unit SQ ACHS each Ipratropium-Albuterol Nebulize [Duoneb 0.5 mg-3 mg/3 ml Soln] 3 ml INHALATION RT-QID each metroNIDAZOLE [Flagyl] 500 mg PO TID #21 tab atenoloL [Tenormin] 25 mg PO HS tab Acetaminophen Tab [Tylenol] 650 mg PO Q6HR PRN tab PRN Reason: Mild Pain Or Fever > 100.5 Ipratropium-Albuterol Nebulize [Duoneb 0.5 mg-3 mg/3 ml Soln] 3 ml INHALATION Q4H PRN each PRN Reason: Shortness Of Breath Or Wheezing cefuroxime axetiL [Ceftin] 500 mg PO BID #14 tab Mirtazapine [Remeron] 15 mg PO HS tab Continue Levothyroxine Sodium [Synthroid] 112 mcg PO AC-BRKFST #30 tab atenoloL [Tenormin] 25 mg PO HS Ondansetron Odt [Zofran ODT] 4 mg PO Q8HR PRN PRN Reason: Nausea Lenalidomide 15 mg PO DIRECTED Pantoprazole [Protonix] 40 mg PO DAILY #30 tab dexAMETHasone [Decadron] 20 mg PO MO Dulaglutide [Trulicity] 0.75 mg SQ MO Acyclovir [Zovirax] 400 mg PO BID Bortezomib 1 dose INJ WE traMADol HCL 25 mg PO Q8H PRN #9 tab PRN Reason: Pain Changed Collagenase [Santyl Ointment] 1 applic TOPICAL DIRECTED #0 Discontinued Aspirin EC [Ecotrin Low Dose] 81 mg PO HS #30 tab Fluconazole [Diflucan] 100 mg PO DAILY Apixaban [Eliquis Starter Pack (for VTE)] See Taper PO DIRECTED Valsartan [Diovan] 80 mg PO HS Sulfamethox-Tmp 800-160Mg [Bactrim DS 800-160 mg] 1 tab PO MOWEFR Sodium Bicarbonate Tab 650 mg PO DIRECTED Discharge Medication List Levothyroxine Sodium [Synthroid] 112 mcg PO AC-BRKFST #30 tab 11/01/20 [Rx] Dulaglutide [Trulicity] 0.75 mg SQ MO 11/09/24 [History] dexAMETHasone [Decadron] 20 mg PO MO 11/09/24 [History] Acyclovir [Zovirax] 400 mg PO BID 12/16/24 [History] Bortezomib 1 dose INJ WE 12/16/24 [History] Lenalidomide 15 mg PO DIRECTED 12/16/24 [History] Ondansetron Odt [Zofran ODT] 4 mg PO Q8HR PRN 12/16/24 [History] Pantoprazole [Protonix] 40 mg PO DAILY #30 tab 12/16/24 [Rx] atenoloL [Tenormin] 25 mg PO HS 12/16/24 [History] Acetaminophen Tab [Tylenol] 650 mg PO Q6HR PRN tab 12/25/24 [Rx] INSULIN LISPRO (HumaLOG) [HumaLOG] 0 unit SQ ACHS each 12/25/24 [Rx] atenoloL [Tenormin] 25 mg PO HS tab 12/25/24 [Rx] Collagenase [Santyl Ointment] 1 applic TOPICAL DIRECTED #0 01/05/25 [Rx] Ipratropium-Albuterol Nebulize [Duoneb 0.5 mg-3 mg/3 ml Soln] 3 ml INHALATION Q4H PRN each 01/05/25 [Rx] Ipratropium-Albuterol Nebulize [Duoneb 0.5 mg-3 mg/3 ml Soln] 3 ml INHALATION RT-QID each 01/05/25 [Rx] Mirtazapine [Remeron] 15 mg PO HS tab 01/05/25 [Rx] cefuroxime axetiL [Ceftin] 500 mg PO BID #14 tab 01/05/25 [Rx] metroNIDAZOLE [Flagyl] 500 mg PO TID #21 tab 01/05/25 [Rx] traMADol HCL 25 mg PO Q8H PRN #9 tab 01/05/25 [Rx] Follow up Appointment(s)/Referral(s): Himanshu Waggoner MD [STAFF PHYSICIAN] - 01/28/25 3:15 pm Mark Park MD [STAFF PHYSICIAN] - 3 Days Eliezer Rodriges MD [STAFF PHYSICIAN] - 1 Week Activity/Diet/Wound Care/Special Instructions: Kelly WOLFE,BMP, Magnesium in 3 days Ostomy: Sara #[id number], non sting skin prep to peristomal skin. Change every 3 to 5 days and if leaking; empty when half full Last changed: 01/04/25 Left buttock dressing daily; cleanse with saline, apply Santyl followed by moist dressing and topped with a bordered foam dressing. Psychiatry to evaluate-Depression over hospitalizations Discharge Disposition: TRANSFER TO SNF/ECF Plan of Treatment: Transfer to [facility] for further workup and tertiary care
[2025-01-05 12:10] LABS: Glucose,Whole Blood 125 mg/dL (70-110)
--- NOTE | 2025-01-05 13:24 | P.PN ---
Subjective Progress Note Date: 01/05/25 This is a 79-year-old female patient with known history of coronary artery disease and previous bypass surgery and known history of diabetes mellitus type 2 and multiple myeloma and the patient was diagnosed having multiple myeloma back in May 2024 and the patient had significant back pain with pathologic bone marrow infiltration throughout the lumbar spine and pelvic area with a pathologic fracture of the L2 vertebral body and osseous extension of the tumor causing left neural foraminal narrowing at the level of L1-L2 and L2-L3. The patient was started on treatment with palliative radiation therapy and following that she was started on RVD treatment and she completed cycle 2 on 12/24/2024. Subsequently, the patient gets hospitalized for an extensive left lower extremity DVT involving a clot extending from the left iliac to the popliteal vein and the patient was started on anticoagulation with Eliquis. She was discharged to be readmitted for abdominal pain and this was assumed to be rel ated to constipation. She was discharged to be readmitted for ongoing abdominal pain and the patient was diagnosed having acute diverticulitis. Yesterday, the patient was taken to the operating room as the follow-up CAT scan of the abdomen showed a complicated diverticulitis of the sigmoid colon with perforation and pneumoperitoneum. There was 8 cm gas/fluid collection consistent with an absces s. She also had cholelithiasis and diffuse anasarca. In the operating room, the patient was found to have an abdominal abscess that was drained. The patient had sigmoid colectomy and diverting colostomy. Postop, the patient was kept intubated and placed on the mechanical ventilator and she was transferred to the ICU. Noted her anticoagulation is currently on hold and she is not showing any signs of bleeding. He is currently off anticoagulants. Vascular surgery has seen the patient and patient is being contemplated for IVC filter placement. Platelet counts are also low. This morning, she is on propofol at rate of 30, she is on assist-control mode at rate of 16, tidal volume of 350, F iO2 40% with a PEEP of 5. Blood gas showed a pH of 7.48 with a pCO2 of 30 and pO2 175. NG tube output is minimal and fluid balance is +2.7 L of the patient received several fluid boluses yesterday. She remains on Alvin-Synephrine at 1.3 mcg. Producing urine output. White cell count is 14.7, hemoglobin is 8.7 and platelet count is at 73. The non-anion gap metabolic acidosis is improved and the patient serum bicarb is up to 22. Sodium levels at 127. Potassium is at 4.2. LFTs are normal. Blood sugar is at 363. Chest x-ray showed atelectatic changes lung base bilaterally. Orotracheal tube is in good location. Postthoracotomy changes related to previous heart surgery and some pulm vascular congestion is also present. The patient is currently on IV Zosyn. She will be started on TPN for nutritional support within the next 24 to 48 hours. Blood cultures positive for E. coli. Patient was seen today on 12/28/2024, patient remains in the ICU, she is on mechanical ventilation, and the patient just came back from IVC filter placement by vascular surgery. Patient is on assist-control rate of 16 tidal volume 350 FiO2 35% and PEEP of 5 ABG showed a pO2 of 150 pCO2 33 pH of 7.45 hence patient was transitioned to assist-control rate of 12 tidal volume 400 FiO2 30% and PEEP of 5 patient is also receiving a unit of packed RBCs for hemoglobin of 6.7. Requiring multiple drips including norepinephrine at 0.02 mcg/kg/min she is on TPN at 30 cc/h propofol 40 mg/kg/min and amiodarone 0.5 mg/min. Patient is also receiving insulin at 11.1 units/h. Her Solu-Cortef dose was cut down and the patient remains empirically on Zosyn. Today is postoperative day #2, patient is status post colectomy with ostomy and MILADIS drain placement. Again her presentation was mostly a presentation of abdominal sepsis. Chest x-ray today showed mostly bibasilar atelectasis., No evidence of pulmonary edema., And I doubt pneumonia. WBC count today 13.2 hemoglobin 6.7 platelets are 47,000's. Sodium is 128 potassium 2.9 chloride 98 BUN 31 creatinine 1.01 patient has received a total of 3 units of packed RBCs since admission. Blood cultures are positive for E. coli. Sensitive to Zosyn Seen today on 12/29/2024, remains in the ICU, intubated and mechanically ventilated, on assist-control mode of mechanical ventilation, rate 12 tidal volume 400 FiO2 30% PEEP of 5 ABG showed a pO2 of 114 pCO2 3 0 pH of 7.44 patient is requiring propofol at 45 mcg/kg/min she is not requiring any pressors today, patient is on TPN at 33 cc/h and IV fluid 0.9 normal saline at 75 cc/h. Her surgical site seems to be intact, ostomy seems to be pink, minimal bloody drainage into the ostomy bag. Patient is sedated, however I plan to discontinue propofol today and give the patient a weaning trial on Precedex. Her WBC count is 9.2 hemoglobin 8.7. Basic metabolic profile is relatively normal except for sodium of 128 renal profile is normal, chest x-ray showed mostly bibasilar atelectasis, no clear-cut evidence of infiltrate. Patient was seen today on 12/30/2024, patient remains in the ICU, however the patient was extubated yesterday, and extubation was successful. Patient is now on 2 L nasal cannula, she was initially extubated to BiPAP /5/35%, patient is awake, alert oriented x 3, does not seem to be in any distress, remains on TPN she is also on lipids. Her ostomy seems to be functioning quite well, her nasogastric tube was removed, my plan is to transfer the patient today to regular medical floor/[facility]. WBC count today is 9.3 hemoglobin 9.2 platelets remain low at 50,000 but improving, basic metabolic profile is normal BUN is 30 creatinine 0.96. Patient remains on hydrocortisone 50 mg IV push every 12 hours, remains on Dilaudid as needed, patient is also on Zosyn and on Protonix. The patient is seen today December 31, 2024 in follow-up on the regular medical floor. She was transferred out of the intensive care unit yesterday. She is resting in bed. Awake and alert in no acute distress. Maintaining good O2 saturations in the 90s on 2 L/min per nasal cannula. She is afebrile. Hemodynamically stable. She did wear BiPAP last evening 09/17 and 35% FiO2. She is being nourished with TPN and lipids. Sodium 130. Potassium 3.1. Bicarb 35. Creatinine 0.79. Glucose 244. Ostomy functioning. He is tolerating a clear liquid diet. Today January 01, 2025 in follow-up on the regular medical floor. She is currently resting in bed. Awake and alert in no acute distress. Maintaining good O2 saturations in the 90s on 2 L/min per nasal cannula. She is wearing the BiPAP at night 12/5 and 35% FiO2. Her diet has been been advanced to full liquids. Ostomy functioning. She remains on TPN at 54 mL/h. Continued on Zosyn. Continued on Solu-Cortef. She needs increased encouragement regarding the use of the incentive spirometer. White count 6.0. Hemoglobin 8.7. Platelets 113. Sodium 131. Potassium 3.6. Bicarb 26. BUN 34. Creatinine 0.66. Glucose 230. The patient is seen today January 02, 2025 in follow-up on the regular medical floor. She is currently sitting up in bed. Having breakfast. Denies any worsening shortness of breath, cough or congestion. Maintaining O2 saturations up to 100% on 2 L/min per nasal cannula. She has been afebrile. Hemodynamica lly stable. Still with some mild abdominal discomfort. She remains on TPN at 54 mLs per hour. Remains on Zosyn. Remains on Solu-Cortef. Continued on bronchodilators. Increased encouragement regarding the use of the incentive spirometer. White count 5.5. Hemoglobin 8.7. Platelets 136. Sodium 134. Potassium 3.5. Bicarb 24. BUN 37. Creatinine 0.61. Glucose 207. The patient is seen today January 03, 2025 in follow-up on the regular medical floor. She is awake and alert in no acute distress. Resting comfortably in bed. Maintaining O2 saturations in the 90s on room air oxygen. She is afebrile. Hemodynamically stable. Sodium 132. Potassium 3.9. Bicarb 27. BUN 36. Creatinine 0.57. Glucose 207. She is continued on DuoNeb inhalations. Antibiotics in the form of Zosyn. She remains on Decadron on Mondays. Continued on TPN at 54 mL/h along with lipids as scheduled. She is status post 4 units of packed red blood cells this admission. Current hemoglobin 8.7. The patient is seen today January 04, 2025 in follow-up on the regular medical floor. She is currently resting comfortably in bed. Awake and alert in no acute distress. Maintaining good O2 saturations in the 90s on room air. She is on a clear liquid diet. She is also being nourished with TPN at 54 mL/h. She has normal saline at 10 mL/h. She is continued on DuoNeb inhalations. Remains on Lasix 40 mg IV daily. She remains on Zosyn. Initial blood cultures were positive for E. coli. Sputum culture revealed no growth. White count 6.4. Hemoglobin 9.5. Platelets 209. Sodium 131. Potassium 4.0. Bicarb 28. BUN 36. Creatinine 0.55. Glucose 137. The patient is seen today January 05, 2025 in follow-up on the regular medical floor. She is resting comfortably in bed. Awake and alert in no acute d istress. Maintaining good O2 saturations in the 90s on room air. She denies any worsening shortness of breath, cough or congestion. Denies any significant abdominal discomfort. White count 4.8. Hemoglobin 10.8. Platelets 179. Sodium 133. Potassium 4.6. Bicarb 27. BUN 35. Creatinine 0.61. Glucose 150. She is status post 4 units of packed red blood cells this admission. Initial blood cultures were positive for E. coli. Sputum culture revealed no growth. Remains on DuoNeb inhalations. Continued on IV diuretics. Heparin for DVT prophylaxis. Objective - Vital Signs Vital signs: Vital Signs Temp 98.4 F 01/05/25 11:23 Pulse 64 01/05/25 11:23 Resp 18 01/05/25 11:23 BP 123/59 01/05/25 11:23 Pulse Ox 98 01/05/25 11:23 FiO2 35 12/31/24 07:46 Intake & Output 01/04/25 01/05/25 01/05/25 18:59 06:59 18:59 Intake Total 1224.9 760 Output Total 1300 900 300 Balance -75.1 -140 -300 Weight 86.8 kg Intake: IV 170 0.9 @ 10 70 Piperacillin-Tazobactam 3 100 .375 gm In Sodium Chloride 0.9% 100 ml @ 25 mls/hr IVPB Q8H [facility] Rx#: [id number] Intake, IV Titration 1224.9 Amount Mvi, Adult No.4 with Vit 1224.9 K 10 ml Trace (Conc-1Ml/ Dose) 1 ml Sodium Acetate 70 meq Potassium Phosphate 9 mmol Potassium Acetate 40 meq Magnesium Sulfate gm 1 gm Calcium Gluconate 1 gm In Amino Acids 5 %/ Dextrose 20 % 1,000 ml @ 54 mls/hr IV .Q20H2M [facility] Rx#:[id number] Oral 590 Output: Urine 1000 900 Stool 300 300 Other: Voiding Method Indwelling Catheter Indwelling Catheter Indwelling Catheter ABP, PAP, CO, CI - Last Documented Arterial Blood Pressure 139/52 - Exam GENERAL EXAM: Alert, pleasant, weak 79-year-old female, resting in bed, on room air, in no apparent distress. HEAD: Normocephalic. EYES: Normal reaction of pupils, equal size. NOSE: Clear with pink turbinates. THROAT: No erythema or exudates. NECK: No masses, no JVD. CHEST: No chest wall deformity. LUNGS: Equal air entry with no crackles, wheeze, rhonchi or dullness. CVS: S1 and S2 normal with no audible murmur, regular rhythm. ABDOMEN: Ostomy functioning. Dressing dry and intact. No hepatosplenomegaly, normal bowel sounds, no guarding or rigidity. SPINE: No scoliosis or deformity SKIN: No rashes CENTRAL NERVOUS SYSTEM: No focal deficits, tone is normal in all 4 extremities. EXTREMITIES: There is no peripheral edema. No clubbing, no cyanosis. Peripheral pulses are intact. - Labs CBC & Chem 7: 01/05/25 10:01 01/05/25 04:53 Labs: Abnormal Lab Results - Last 24 Hours (Table) 01/04/25 01/04/25 01/04/25 Range/Units 13:30 17:15 20:09 RBC 3.26 L (3.80-5.40) m/uL Hgb 9.5 L (11.4-16.0) gm/dL Hct 28.9 L (34.0-46.0) % RDW 15.6 H (11.5-15.5) % Sodium (137-145) mmol/L BUN (7-17) mg/dL Glucose (74-99) mg/dL POC Glucose (mg/dL) 247 H 244 H (70-110) mg/dL 01/05/25 01/05/25 01/05/25 Range/Units 04:53 07:09 10:01 RBC 3.73 L (3.80-5.40) m/uL Hgb 10.8 L (11.4-16.0) gm/dL Hct 33.9 L (34.0-46.0) % RDW 16.1 H (11.5-15.5) % Sodium 133 L (137-145) mmol/L BUN 35 H (7-17) mg/dL Glucose 150 H (74-99) mg/dL POC Glucose (mg/dL) 156 H (70-110) mg/dL 01/05/25 Range/Units 12:08 RBC (3.80-5.40) m/uL Hgb (11.4-16.0) gm/dL Hct (34.0-46.0) % RDW (11.5-15.5) % Sodium (137-145) mmol/L BUN (7-17) mg/dL Glucose (74-99) mg/dL POC Glucose (mg/dL) 125 H (70-110) mg/dL Assessment and Plan Assessment: Septic shock secondary to pneumoperitoneum and intra-abdominal abscesses with sigmoid diverticulitis Acute hypoxic respiratory failure secondary to abdominal sepsis and septic shock he remained on the mechanical ventilator postoperatively. Extubated on 12/29/2024 Bacteremia secondary to E. coli secondary to above. Remains on Zosyn Acute sigmoid diverticulitis with pneumoperitoneum requiring exploratory laparotomy, drainage of interloop abscess and sigmoid colectomy with diverting colostomy postoperative day #8. 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 Number of minutes spent on the visit: 10 Dictation was produced using [employer] software. Please excuse any grammatical, word or spelling errors.
--- NOTE | 2025-01-05 15:39 | P.PN ---
Subjective Progress Note Date: 01/05/25 Principal diagnosis: Reason for follow-up is bacteremia perforated diverticulitis and abscess Patient is a 79-year-old female with a past medical history significant for Coronary Artery Disease (CAD), Cancer, Diabetes Mellitus, Hyperlipidemia, Hypertension, Thyroid Disorder presenting to the hospital for evaluation of abnormal CT that was done for abdominal pain with concern for perforated sigmoid diverticulitis did have a positive blood culture with E. coli probably this consultation.Patient is status post laparotomy sigmoid colectomy drainage of the interloop abscess and proximal omentectomy patient subsequent has been admitted to ICU on the vent. On today's evaluation that is 01/05/2025, Patient is afebrile this morning patient is breathing comfortably on room air she is currently resting sleepy as per the son at the bedside and with no issues overall doing better. Patient white count is 4.8, creatinine 0.61 Objective - Vital Signs Vital signs: Vital Signs Temp 98.4 F 01/05/25 11:23 Pulse 64 01/05/25 11:23 Resp 18 01/05/25 11:23 BP 123/59 01/05/25 11:23 Pulse Ox 98 01/05/25 11:23 FiO2 35 12/31/24 07:46 Intake & Output 01/04/25 01/05/25 01/05/25 18:59 06:59 18:59 Intake Total 1224.9 760 Output Total 1300 900 300 Balance -75.1 -140 -300 Weight 86.8 kg Intake: IV 170 0.9 @ 10 70 Piperacillin-Tazobactam 3 100 .375 gm In Sodium Chloride 0.9% 100 ml @ 25 mls/hr IVPB Q8H [facility] Rx#: [id number] Intake, IV Titration 1224.9 Amount Mvi, Adult No.4 with Vit 1224.9 K 10 ml Trace (Conc-1Ml/ Dose) 1 ml Sodium Acetate 70 meq Potassium Phosphate 9 mmol Potassium Acetate 40 meq Magnesium Sulfate gm 1 gm Calcium Gluconate 1 gm In Amino Acids 5 %/ Dextrose 20 % 1,000 ml @ 54 mls/hr IV .Q20H2M [facility] Rx#:[id number] Oral 590 Output: Urine 1000 900 Stool 300 300 Other: Voiding Method Indwelling Catheter Indwelling Catheter Indwelling Catheter ABP, PAP, CO, CI - Last Documented Arterial Blood Pressure 139/52 - Exam GENERAL DESCRIPTION: An elderly female intubated on the vent RESPIRATORY SYSTEM: Unlabored breathing , decreased breath sounds at bases HEART: S1 S2 regular rate and rhythm , ABDOMEN: Soft , mild tenderness EXTREMITIES: No edema feet - Labs CBC & Chem 7: 01/05/25 10:01 01/05/25 04:53 Labs: Abnormal Lab Results - Last 24 Hours (Table) 01/04/25 01/04/25 01/04/25 Range/Units 13:30 17:15 20:09 RBC 3.26 L (3.80-5.40) m/uL Hgb 9.5 L (11.4-16.0) gm/dL Hct 28.9 L (34.0-46.0) % RDW 15.6 H (11.5-15.5) % Sodium (137-145) mmol/L BUN (7-17) mg/dL Glucose (74-99) mg/dL POC Glucose (mg/dL) 247 H 244 H (70-110) mg/dL 01/05/25 01/05/25 01/05/25 Range/Units 04:53 07:09 10:01 RBC 3.73 L (3.80-5.40) m/uL Hgb 10.8 L (11.4-16.0) gm/dL Hct 33.9 L (34.0-46.0) % RDW 16.1 H (11.5-15.5) % Sodium 133 L (137-145) mmol/L BUN 35 H (7-17) mg/dL Glucose 150 H (74-99) mg/dL POC Glucose (mg/dL) 156 H (70-110) mg/dL 01/05/25 Range/Units 12:08 RBC (3.80-5.40) m/uL Hgb (11.4-16.0) gm/dL Hct (34.0-46.0) % RDW (11.5-15.5) % Sodium (137-145) mmol/L BUN (7-17) mg/dL Glucose (74-99) mg/dL POC Glucose (mg/dL) 125 H (70-110) mg/dL Assessment and Plan (1) Perforation of sigmoid colon due to diverticulitis Current Visit: Yes Status: Acute Code(s): K57.20 - DVTRCLI OF LG INT W PERF ORATION AND ABSCESS W/O BLEEDING SNOMED Code(s): 1116757891334046 (2) Bacteremia Current Visit: Yes Status: Acute Code(s): R78.81 - BACTEREMIA SNOMED Code(s): 5081582 Plan: 1patient with E. coli bacteremia source likely abdominal in this patient with evidence of abnormal CT with free air concerning for perforated diverticulitis but did not mention any abscess, patient did have a repeat CT that has been suggestive of perforated diverticulitis and abscess and patient status post laparotomy sigmoid colectomy drainage of the interloop abscess procedure completed on 12/26/2024 2patient is afebrile patient white count has normalized 3patient will finish therapy with oral Ceftin and Flagyl on discharge close outpatient follow-up Dictation was produced using [employer] dictation software. please excuse any grammatical, word or spelling errors Time with Patient: Less than 30
[2025-01-05] MEDS ORDERED: OLANZapine 10 MG VIAL IM PRN (16:06)
[2025-01-05 17:12] LABS: Glucose,Whole Blood 126 mg/dL (70-110)
[2025-01-05 20:09] LABS: Glucose,Whole Blood 97 mg/dL (70-110)
[2025-01-05] MEDS: MIRTAZAPINE 15 MG TAB PO SCH (21:28)
[2025-01-06 05:48] LABS: Potassium 3.4 mmol/L (3.5-5.1)
[2025-01-06 05:49] LABS: ALT 41 U/L (4-34); AST 37 U/L (14-36); African American GFR (CKD) 89 (>60 ml/min/1.73 sqM); Albumin/Globulin Ratio 0.7; Alkaline Phosphatase 120 U/L (38-126); Anion Gap 3 mmol/L; Blood Urea Nitrogen 31 mg/dL (7-17); Carbon Dioxide 28 mmol/L (22-30); Chloride 99 mmol/L (98-107); Globulin 2.7 g/dL; Glucose 81 mg/dL (74-99); Magnesium 1.8 mg/dL (1.6-2.3); Non-African American GFR(CKD) 77 (>60 ml/min/1.73 sqM); Phosphorus 3.3 mg/dL (2.5-4.5); Sodium 130 mmol/L (137-145); Total Bilirubin 0.9 mg/dL (0.2-1.3); Total Protein 4.7 g/dL (6.3-8.2)
[2025-01-06 05:55] LABS: Glucose,Whole Blood 96 mg/dL (70-110)
[2025-01-06] MEDS: POTASSIUM CHLORIDE ER 20 MEQ TAB.ER PO SCH (06:56)
[2025-01-06] MEDS: LEVOTHYROXINE 112 MCG TAB PO SCH (06:56)
[2025-01-06 07:15] LABS: Glucose,Whole Blood 92 mg/dL (70-110)
[2025-01-06 07:31] VITALS: RESP 16
[2025-01-06] MEDS: MAGNESIUM SULFATE-D5W PMX 1 GM in DEXTROSE/WATER 1 100ML.BAG IVPB ONE (09:19)
[2025-01-06] MEDS: POTASSIUM CHLORIDE ER 20 MEQ TAB.ER PO STA (09:51)
--- NOTE | 2025-01-06 10:48 | P.PN ---
Subjective Patient is seen in follow-up for acute kidney injury. RODRIGUEZ resolved. Tolerating oral intake. No active complaints. Vital signs are stable. General: Resting in bed. HEENT: On room air. LUNGS: No audible rhonchi or wheezes. HEART: Rate and Rhythm are regular. ABDOMEN: Colostomy noted. EXTREMITITES: 1+ edema. Objective - Vital Signs Vital signs: Vital Signs Temp 98.3 F 01/06/25 07:16 Pulse 75 01/06/25 09:06 Resp 16 01/06/25 08:00 BP 159/74 01/06/25 07:16 Pulse Ox 97 01/06/25 07:16 FiO2 35 12/31/24 07:46 Intake & Output 01/05/25 01/06/25 01/06/25 18:59 06:59 18:59 Intake Total 200 Output Total 950 400 100 Balance -750 -400 -100 Intake: Oral 200 Output: Urine 650 400 Stool 300 100 Other: Voiding Method Indwelling Catheter Indwelling Catheter Indwelling Catheter ABP, PAP, CO, CI - Last Documented Arterial Blood Pressure 139/52 - Labs CBC & Chem 7: 01/05/25 10:01 01/06/25 09:59 Labs: Abnormal Lab Results - Last 24 Hours (Table) 01/05/25 01/05/25 01/05/25 Range/Units 10:01 12:08 17:11 RBC 3.73 L (3.80-5.40) m/uL Hgb 10.8 L (11.4-16.0) gm/dL Hct 33.9 L (34.0-46.0) % RDW 16.1 H (11.5-15.5) % Sodium (137-145) mmol/L Potassium (3.5-5.1) mmol/L BUN (7-17) mg/dL POC Glucose (mg/dL) 125 H 126 H (70-110) mg/dL Calcium (8.4-10.2) mg/dL AST (14-36) U/L ALT (4-34) U/L Total Protein (6.3-8.2) g/dL Albumin (3.5-5.0) g/dL Triglycerides (0.00-149.00) mg/dL 01/06/25 01/06/25 Range/Units 04:38 04:38 RBC (3.80-5.40) m/uL Hgb (11.4-16.0) gm/dL Hct (34.0-46.0) % RDW (11.5-15.5) % Sodium 130 L (137-145) mmol/L Potassium 3.4 L (3.5-5.1) mmol/L BUN 31 H (7-17) mg/dL POC Glucose (mg/dL) (70-110) mg/dL Calcium 8.0 L (8.4-10.2) mg/dL AST 37 H (14-36) U/L ALT 41 H (4-34) U/L Total Protein 4.7 L (6.3-8.2) g/dL Albumin 2.0 L (3.5-5.0) g/dL Triglycerides 167.00 H (0.00-149.00) mg/dL Assessment and Plan Plan: Assessment: 1. Acute kidney injury secondary to septic ATN. Resolved. CT scan from December 24, 2024 showed no evidence of hydronephrosis. 2. Multiple myeloma maintained on chemotherapy outpatient. 3. Acute diverticulitis with perforation being followed by surgery. Status post sigmoid colectomy with drainage of abscess December 26, 2024. 4. Acute blood loss anemia status post blood transfusion this admission. Status post IV DDAVP. 5. Metabolic acidosis secondary to acute kidney injury and IV fluids. Status post bicarb drip. Improved. 6. Hyponatremia secondary to acute kidney injury. Hypervolemic. 7. E. coli bacteremia on antibiotics. 8. Volume overload. Better with diuresis. Plan: Stop IV Lasix. Add torsemide 20 mg once daily. Encouraged oral intake. Add 1500 cc fluid restriction. Repeat BMP and magnesium level 2 to 3 days postdischarge. Follow-up outpatient 1 week postdischarge.
--- NOTE | 2025-01-06 12:08 | P.PN ---
Subjective Progress Note Date: 01/06/25 This is a 79-year-old female patient with known history of coronary artery disease and previous bypass surgery and known history of diabetes mellitus type 2 and multiple myeloma and the patient was diagnosed having multiple myeloma back in May 2024 and the patient had significant back pain with pathologic bone marrow infiltration throughout the lumbar spine and pelvic area with a pathologic fracture of the L2 vertebral body and osseous extension of the tumor causing left neural foraminal narrowing at the level of L1-L2 and L2-L3. The patient was started on treatment with palliative radiation therapy and following that she was started on RVD treatment and she completed cycle 2 on 12/24/2024. Subsequently, the patient gets hospitalized for an extensive left lower extremity DVT involving a clot extending from the left iliac to the popliteal vein and the patient was started on anticoagulation with Eliquis. She was discharged to be readmitted for abdominal pain and this was assumed to be rel ated to constipation. She was discharged to be readmitted for ongoing abdominal pain and the patient was diagnosed having acute diverticulitis. Yesterday, the patient was taken to the operating room as the follow-up CAT scan of the abdomen showed a complicated diverticulitis of the sigmoid colon with perforation and pneumoperitoneum. There was 8 cm gas/fluid collection consistent with an absces s. She also had cholelithiasis and diffuse anasarca. In the operating room, the patient was found to have an abdominal abscess that was drained. The patient had sigmoid colectomy and diverting colostomy. Postop, the patient was kept intubated and placed on the mechanical ventilator and she was transferred to the ICU. Noted her anticoagulation is currently on hold and she is not showing any signs of bleeding. He is currently off anticoagulants. Vascular surgery has seen the patient and patient is being contemplated for IVC filter placement. Platelet counts are also low. This morning, she is on propofol at rate of 30, she is on assist-control mode at rate of 16, tidal volume of 350, F iO2 40% with a PEEP of 5. Blood gas showed a pH of 7.48 with a pCO2 of 30 and pO2 175. NG tube output is minimal and fluid balance is +2.7 L of the patient received several fluid boluses yesterday. She remains on Alvin-Synephrine at 1.3 mcg. Producing urine output. White cell count is 14.7, hemoglobin is 8.7 and platelet count is at 73. The non-anion gap metabolic acidosis is improved and the patient serum bicarb is up to 22. Sodium levels at 127. Potassium is at 4.2. LFTs are normal. Blood sugar is at 363. Chest x-ray showed atelectatic changes lung base bilaterally. Orotracheal tube is in good location. Postthoracotomy changes related to previous heart surgery and some pulm vascular congestion is also present. The patient is currently on IV Zosyn. She will be started on TPN for nutritional support within the next 24 to 48 hours. Blood cultures positive for E. coli. Patient was seen today on 12/28/2024, patient remains in the ICU, she is on mechanical ventilation, and the patient just came back from IVC filter placement by vascular surgery. Patient is on assist-control rate of 16 tidal volume 350 FiO2 35% and PEEP of 5 ABG showed a pO2 of 150 pCO2 33 pH of 7.45 hence patient was transitioned to assist-control rate of 12 tidal volume 400 FiO2 30% and PEEP of 5 patient is also receiving a unit of packed RBCs for hemoglobin of 6.7. Requiring multiple drips including norepinephrine at 0.02 mcg/kg/min she is on TPN at 30 cc/h propofol 40 mg/kg/min and amiodarone 0.5 mg/min. Patient is also receiving insulin at 11.1 units/h. Her Solu-Cortef dose was cut down and the patient remains empirically on Zosyn. Today is postoperative day #2, patient is status post colectomy with ostomy and MILADIS drain placement. Again her presentation was mostly a presentation of abdominal sepsis. Chest x-ray today showed mostly bibasilar atelectasis., No evidence of pulmonary edema., And I doubt pneumonia. WBC count today 13.2 hemoglobin 6.7 platelets are 47,000's. Sodium is 128 potassium 2.9 chloride 98 BUN 31 creatinine 1.01 patient has received a total of 3 units of packed RBCs since admission. Blood cultures are positive for E. coli. Sensitive to Zosyn Seen today on 12/29/2024, remains in the ICU, intubated and mechanically ventilated, on assist-control mode of mechanical ventilation, rate 12 tidal volume 400 FiO2 30% PEEP of 5 ABG showed a pO2 of 114 pCO2 3 0 pH of 7.44 patient is requiring propofol at 45 mcg/kg/min she is not requiring any pressors today, patient is on TPN at 33 cc/h and IV fluid 0.9 normal saline at 75 cc/h. Her surgical site seems to be intact, ostomy seems to be pink, minimal bloody drainage into the ostomy bag. Patient is sedated, however I plan to discontinue propofol today and give the patient a weaning trial on Precedex. Her WBC count is 9.2 hemoglobin 8.7. Basic metabolic profile is relatively normal except for sodium of 128 renal profile is normal, chest x-ray showed mostly bibasilar atelectasis, no clear-cut evidence of infiltrate. Patient was seen today on 12/30/2024, patient remains in the ICU, however the patient was extubated yesterday, and extubation was successful. Patient is now on 2 L nasal cannula, she was initially extubated to BiPAP /5/35%, patient is awake, alert oriented x 3, does not seem to be in any distress, remains on TPN she is also on lipids. Her ostomy seems to be functioning quite well, her nasogastric tube was removed, my plan is to transfer the patient today to regular medical floor/[facility]. WBC count today is 9.3 hemoglobin 9.2 platelets remain low at 50,000 but improving, basic metabolic profile is normal BUN is 30 creatinine 0.96. Patient remains on hydrocortisone 50 mg IV push every 12 hours, remains on Dilaudid as needed, patient is also on Zosyn and on Protonix. The patient is seen today December 31, 2024 in follow-up on the regular medical floor. She was transferred out of the intensive care unit yesterday. She is resting in bed. Awake and alert in no acute distress. Maintaining good O2 saturations in the 90s on 2 L/min per nasal cannula. She is afebrile. Hemodynamically stable. She did wear BiPAP last evening 09/17 and 35% FiO2. She is being nourished with TPN and lipids. Sodium 130. Potassium 3.1. Bicarb 35. Creatinine 0.79. Glucose 244. Ostomy functioning. He is tolerating a clear liquid diet. Today January 01, 2025 in follow-up on the regular medical floor. She is currently resting in bed. Awake and alert in no acute distress. Maintaining good O2 saturations in the 90s on 2 L/min per nasal cannula. She is wearing the BiPAP at night 12/5 and 35% FiO2. Her diet has been been advanced to full liquids. Ostomy functioning. She remains on TPN at 54 mL/h. Continued on Zosyn. Continued on Solu-Cortef. She needs increased encouragement regarding the use of the incentive spirometer. White count 6.0. Hemoglobin 8.7. Platelets 113. Sodium 131. Potassium 3.6. Bicarb 26. BUN 34. Creatinine 0.66. Glucose 230. The patient is seen today January 02, 2025 in follow-up on the regular medical floor. She is currently sitting up in bed. Having breakfast. Denies any worsening shortness of breath, cough or congestion. Maintaining O2 saturations up to 100% on 2 L/min per nasal cannula. She has been afebrile. Hemodynamica lly stable. Still with some mild abdominal discomfort. She remains on TPN at 54 mLs per hour. Remains on Zosyn. Remains on Solu-Cortef. Continued on bronchodilators. Increased encouragement regarding the use of the incentive spirometer. White count 5.5. Hemoglobin 8.7. Platelets 136. Sodium 134. Potassium 3.5. Bicarb 24. BUN 37. Creatinine 0.61. Glucose 207. The patient is seen today January 03, 2025 in follow-up on the regular medical floor. She is awake and alert in no acute distress. Resting comfortably in bed. Maintaining O2 saturations in the 90s on room air oxygen. She is afebrile. Hemodynamically stable. Sodium 132. Potassium 3.9. Bicarb 27. BUN 36. Creatinine 0.57. Glucose 207. She is continued on DuoNeb inhalations. Antibiotics in the form of Zosyn. She remains on Decadron on Mondays. Continued on TPN at 54 mL/h along with lipids as scheduled. She is status post 4 units of packed red blood cells this admission. Current hemoglobin 8.7. The patient is seen today January 04, 2025 in follow-up on the regular medical floor. She is currently resting comfortably in bed. Awake and alert in no acute distress. Maintaining good O2 saturations in the 90s on room air. She is on a clear liquid diet. She is also being nourished with TPN at 54 mL/h. She has normal saline at 10 mL/h. She is continued on DuoNeb inhalations. Remains on Lasix 40 mg IV daily. She remains on Zosyn. Initial blood cultures were positive for E. coli. Sputum culture revealed no growth. White count 6.4. Hemoglobin 9.5. Platelets 209. Sodium 131. Potassium 4.0. Bicarb 28. BUN 36. Creatinine 0.55. Glucose 137. The patient is seen today January 05, 2025 in follow-up on the regular medical floor. She is resting comfortably in bed. Awake and alert in no acute d istress. Maintaining good O2 saturations in the 90s on room air. She denies any worsening shortness of breath, cough or congestion. Denies any significant abdominal discomfort. White count 4.8. Hemoglobin 10.8. Platelets 179. Sodium 133. Potassium 4.6. Bicarb 27. BUN 35. Creatinine 0.61. Glucose 150. She is status post 4 units of packed red blood cells this admission. Initial blood cultures were positive for E. coli. Sputum culture revealed no growth. Remains on DuoNeb inhalations. Continued on IV diuretics. Heparin for DVT prophylaxis. The patient is seen today January 06, 2025 in follow-up on the regular medical floor. She is awake and alert in no acute distress. She continues to maintain good O2 saturations in the 90s on room air. She denies any worsening shortness of breath, cough or congestion. Her pain is well-managed. Sodium 130. Potassium 3.4. Bicarb 28. BUN 31. Creatinine 0.75. Glucose 81. AST 37. ALT 41. She is continued on DuoNeb and elations. Heparin for DVT prophylaxis. Remains on Zosyn. Remains on diuretics. Diuresing well. Objective - Vital Signs Vital signs: Vital Signs Temp 98.3 F 01/06/25 07:16 Pulse 75 01/06/25 09:06 Resp 16 01/06/25 08:00 BP 159/74 01/06/25 07:16 Pulse Ox 97 01/06/25 07:16 FiO2 35 12/31/24 07:46 Intake & Output 01/05/25 01/06/25 01/06/25 18:59 06:59 18:59 Intake Total 200 Output Total 630 424 5085 Balance -750 -400 -1050 Intake: Oral 200 Output: Urine 650 400 950 Uretheral (Hernandez) 950 Stool 300 100 Other: Voiding Method Indwelling Catheter Indwelling Catheter Indwelling Catheter ABP, PAP, CO, CI - Last Documented Arterial Blood Pressure 139/52 - Exam GENERAL EXAM: Alert, pleasant 79-year-old female, resting in bed, on room air, in no apparent distress. HEAD: Normocephalic. EYES: Normal reaction of pupils, equal size. NOSE: Clear with pink turbinates. THROAT: No erythema or exudates. NECK: No masses, no JVD. CHEST: No chest wall deformity. LUNGS: Equal air entry with no crackles, wheeze, rhonchi or dullness. CVS: S1 and S2 normal with no audible murmur, regular rhythm. ABDOMEN: Ostomy functioning. Surgical site clean and well-approximated. Normal bowel sounds, no guarding or rigidity. SPINE: No scoliosis or deformity SKIN: No rashes CENTRAL NERVOUS SYSTEM: No focal deficits, tone is normal in all 4 extremities. EXTREMITIES: There is no peripheral edema. No clubbing, no cyanosis. Peripheral pulses are intact. - Labs CBC & Chem 7: 01/05/25 10:01 01/06/25 09:59 Labs: Abnormal Lab Results - Last 24 Hours (Table) 01/05/25 01/05/25 01/06/25 Range/Units 12:08 17:11 04:38 Sodium 130 L (137-145) mmol/L Potassium 3.4 L (3.5-5.1) mmol/L BUN 31 H (7-17) mg/dL POC Glucose (mg/dL) 125 H 126 H (70-110) mg/dL Calcium 8.0 L (8.4-10.2) mg/dL AST 37 H (14-36) U/L ALT 41 H (4-34) U/L Total Protein 4.7 L (6.3-8.2) g/dL Albumin 2.0 L (3.5-5.0) g/dL Triglycerides (0.00-149.00) mg/dL 01/06/25 Range/Units 04:38 Sodium (137-145) mmol/L Potassium (3.5-5.1) mmol/L BUN (7-17) mg/dL POC Glucose (mg/dL) (70-110) mg/dL Calcium (8.4-10.2) mg/dL AST (14-36) U/L ALT (4-34) U/L Total Protein (6.3-8.2) g/dL Albumin (3.5-5.0) g/dL Triglycerides 167.00 H (0.00-149.00) mg/dL Assessment and Plan Assessment: Septic shock secondary to pneumoperitoneum and intra-abdominal abscesses with sigmoid diverticulitis, recovered Acute hypoxic respiratory failure secondary to abdominal sepsis and septic shock he remained on the mechanical ventilator postoperatively. Extubated on 12/29/2024. Stable and on room air Bacteremia secondary to E. coli secondary to above. Remains on Zosyn Acute sigmoid diverticulitis with pneumoperitoneum requiring exploratory laparotomy, drainage of interloop abscess and sigmoid colectomy with diverting colostomy on December 26, 2024. 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 Number of minutes spent on the visit: 10 Dictation was produced using [employer] dictation software. Please excuse any grammatical, word or spelling errors.
[2025-01-06 12:14] LABS: Glucose,Whole Blood 73 mg/dL (70-110)
[2025-01-06 12:47] VITALS: BP 128/69; PULSE 66; TEMP 97.5
--- NOTE | 2025-01-06 12:50 | P.PN ---
Subjective Progress Note Date: 01/06/25 SURGICAL PROGRESS NOTE CHIEF COMPLAINT: Perforated diverticulitis with abscess HISTORY OF PRESENT ILLNESS: Postop day #11 status post sigmoid colectomy, drainage of interloop abscess and proximal omentectomy. Patient lying in bed comfortably. Her ostomy is functioning. Nursing staff reported drainage from the incision site. On the dressing from this morning there had been serosanguineous purulent drainage. Currently no drainage noted from the incision. Patient is being discharged today to [facility]. She is afebrile. Last WBC yesterday 4.8. MILADIS drain discontinued yesterday PHYSICAL EXAM: VITAL SIGNS: Reviewed. GENERAL: Well-developed in no acute distress. ABDOMEN: Soft. Nondistended. Midline incision with some mild erythema noted at the distal aspect. No drainage expressed with palpation of the area. Ostomy with stool present. Old MILADIS drain site with serous drainage NEUROLOGIC: awake and alert ASSESSMENT: 1. Perforated diverticulitis with abscess 2. E. coli bacteremia 3. History of multiple myeloma PLAN: -Patient can be discharge from surgical standpoint -Discharge antibiotics per infectious disease -Continue regular diet -Recommend daily shower Physician Evs Tech note has been reviewed by physician. Signing provider agrees with the documented findings, assessment, and plan of care. Objective - Vital Signs Vital signs: Vital Signs Temp 98.3 F 01/06/25 07:16 Pulse 75 01/06/25 09:06 Resp 16 01/06/25 08:00 BP 159/74 01/06/25 07:16 Pulse Ox 97 01/06/25 07:16 FiO2 35 12/31/24 07:46 Intake & Output 01/05/25 01/06/25 01/06/25 18:59 06:59 18:59 Intake Total 200 Output Total 780 816 8079 Balance -750 -400 -1050 Intake: Oral 200 Output: Urine 650 400 950 Uretheral (Hernandez) 950 Stool 300 100 Other: Voiding Method Indwelling Catheter Indwelling Catheter Indwelling Catheter ABP, PAP, CO, CI - Last Documented Arterial Blood Pressure 139/52 - Labs CBC & Chem 7: 01/05/25 10:01 01/06/25 09:59 Labs: Abnormal Lab Results - Last 24 Hours (Table) 01/05/25 01/06/25 01/06/25 Range/Units 17:11 04:38 04:38 Sodium 130 L (137-145) mmol/L Potassium 3.4 L (3.5-5.1) mmol/L BUN 31 H (7-17) mg/dL POC Glucose (mg/dL) 126 H (70-110) mg/dL Calcium 8.0 L (8.4-10.2) mg/dL AST 37 H (14-36) U/L ALT 41 H (4-34) U/L Total Protein 4.7 L (6.3-8.2) g/dL Albumin 2.0 L (3.5-5.0) g/dL Triglycerides 167.00 H (0.00-149.00) mg/dL
[2025-01-06 14:41] LABS: Glucose,Whole Blood 85 mg/dL (70-110)
[2025-01-07] MEDS ORDERED: POTASSIUM CHLORIDE ER 20 MEQ TAB.ER PO SCH (09:00)
[2025-01-07] MEDS ORDERED: TORSEMIDE 20 MG TAB PO SCH (09:00)
--- NOTE | 2025-01-07 13:15 | P.PN ---
Subjective Progress Note Date: 01/06/25 Principal diagnosis: Reason for follow-up is bacteremia perforated diverticulitis and abscess Patient is a 79-year-old female with a past medical history significant for Coronary Artery Disease (CAD), Cancer, Diabetes Mellitus, Hyperlipidemia, Hypertension, Thyroid Disorder presenting to the hospital for evaluation of abnormal CT that was done for abdominal pain with concern for perforated sigmoid diverticulitis did have a positive blood culture with E. coli probably this consultation.Patient is status post laparotomy sigmoid colectomy drainage of the interloop abscess and proximal omentectomy patient subsequent has been admitted to ICU on the vent. On today's evaluation that is 01/06/2025,the patient denies any fever or any chills, patient is breathing comfortably on room air, the patient denies chest pain shortness of breath and no significant cough, patient denies abdominal pain, no nausea vomiting. No CBC has been repeated today, did have creatinine 0.75 Objective - Vital Signs Vital signs: Vital Signs Temp 98.3 F 01/06/25 07:16 Pulse 75 01/06/25 09:06 Resp 16 01/06/25 08:00 BP 159/74 01/06/25 07:16 Pulse Ox 97 01/06/25 07:16 FiO2 35 12/31/24 07:46 Intake & Output 01/05/25 01/06/25 01/06/25 18:59 06:59 18:59 Intake Total 200 Output Total 950 400 100 Balance -750 -400 -100 Intake: Oral 200 Output: Urine 650 400 Stool 300 100 Other: Voiding Method Indwelling Catheter Indwelling Catheter Indwelling Catheter ABP, PAP, CO, CI - Last Documented Arterial Blood Pressure 139/52 - Exam GENERAL DESCRIPTION: An elderly female intubated on the vent RESPIRATORY SYSTEM: Unlabored breathing , decreased breath sounds at bases HEART: S1 S2 regular rate and rhythm , ABDOMEN: Soft , mild tenderness EXTREMITIES: No edema feet - Labs CBC & Chem 7: 01/05/25 10:01 01/06/25 09:59 Labs: Abnormal Lab Results - Last 24 Hours (Table) 01/05/25 01/05/25 01/06/25 Range/Units 12:08 17:11 04:38 Sodium 130 L (137-145) mmol/L Potassium 3.4 L (3.5-5.1) mmol/L BUN 31 H (7-17) mg/dL POC Glucose (mg/dL) 125 H 126 H (70-110) mg/dL Calcium 8.0 L (8.4-10.2) mg/dL AST 37 H (14-36) U/L ALT 41 H (4-34) U/L Total Protein 4.7 L (6.3-8.2) g/dL Albumin 2.0 L (3.5-5.0) g/dL Triglycerides (0.00-149.00) mg/dL 01/06/25 Range/Units 04:38 Sodium (137-145) mmol/L Potassium (3.5-5.1) mmol/L BUN (7-17) mg/dL POC Glucose (mg/dL) (70-110) mg/dL Calcium (8.4-10.2) mg/dL AST (14-36) U/L ALT (4-34) U/L Total Protein (6.3-8.2) g/dL Albumin (3.5-5.0) g/dL Triglycerides 167.00 H (0.00-149.00) mg/dL Assessment and Plan (1) Perforation of sigmoid colon due to diverticulitis Status: Acute Code(s): K57.20 - DVTRCLI OF LG INT W PERFORATION AND ABSCESS W/O BLEEDING SNOMED Code(s): 5028882680865375 (2) Bacteremia Status: Acute Code(s): R78.81 - BACTEREMIA SNOMED Code(s): 4604404 Plan: 1patient with E. coli bacteremia source likely abdominal in this patient with evidence of abnormal CT with free air concerning for perforated diverticulitis but did not mention any abscess, patient did have a repeat CT that has been suggestive of perforated diverticulitis and abscess and patient status post laparotomy sigmoid colectomy drainage of the interloop abscess procedure com pleted on 12/26/2024 2patient is afebrile patient white count has normalized 3patient has received adequate IV Zosyn with a plan to finish therapy with oral Ceftin and Flagyl on discharge, patient medication added to the discharge instruction Dictation was produced using [employer] dictation software. please excuse any grammatical, word or spelling errors Time with Patient: Less than 30
== END 2025-01-06 15:10 | DRG 329 ==
LOC: EC 15:32 → 4SSUR 18:25 → 2SICU 12-26 16:39 → 5NMEDONC 12-30 15:46
PROVIDERS: ADMIT Family Medicine; ATTEND Family Medicine
PROC: 30233N1 Transfusion of Nonautologous Red Blood Cells into Peripheral Vein, Percutaneous Approach (ICD-10-PCS; 2024-12-25)
PROC: 30233J1 Transfusion of Nonautologous Serum Albumin into Peripheral Vein, Percutaneous Approach (ICD-10-PCS; 2024-12-25)
PROC: 0DBU0ZZ Excision of Omentum, Open Approach (ICD-10-PCS; 2024-12-26)
PROC: 0W9G00Z Drainage of Peritoneal Cavity with Drainage Device, Open Approach (ICD-10-PCS; 2024-12-26)
PROC: 0D1N0Z4 Bypass Sigmoid Colon to Cutaneous, Open Approach (ICD-10-PCS; 2024-12-26)
PROC: 0DTN0ZZ Resection of Sigmoid Colon, Open Approach (ICD-10-PCS; principal; 2024-12-26 15:30)
PROC: 3E033XZ Introduction of Vasopressor into Peripheral Vein, Percutaneous Approach (ICD-10-PCS; 2024-12-27)
PROC: 06H03DZ Insertion of Intraluminal Device into Inferior Vena Cava, Percutaneous Approach (ICD-10-PCS; 2024-12-28)
PROC: 06H033Z Insertion of Infusion Device into Inferior Vena Cava, Percutaneous Approach (ICD-10-PCS; 2024-12-28)
PROC: 3E0436Z Introduction of Nutritional Substance into Central Vein, Percutaneous Approach (ICD-10-PCS; 2024-12-28)
PROC: 5A09357 Assistance with Respiratory Ventilation, Less than 24 Consecutive Hours, Continuous Positive Airway Pressure (ICD-10-PCS; 2024-12-30)
DX: K57.20 Diverticulitis of large intestine with perforation and abscess without bleeding (principal); A41.51 Sepsis due to Escherichia coli [E. coli]; J96.01 Acute respiratory failure with hypoxia; K65.1 Peritoneal abscess; R65.21 Severe sepsis with septic shock; N17.0 Acute kidney failure with tubular necrosis; I82.422 Acute embolism and thrombosis of left iliac vein; C90.00 Multiple myeloma not having achieved remission; L89.322 Pressure ulcer of left buttock, stage 2; D61.818 Other pancytopenia; I82.432 Acute embolism and thrombosis of left popliteal vein; E11.59 Type 2 diabetes mellitus with other circulatory complications; D63.0 Anemia in neoplastic disease; F32.A Depression, unspecified; I10 Essential (primary) hypertension; E87.20 Acidosis, unspecified; D62 Acute posthemorrhagic anemia; E87.1 Hypo-osmolality and hyponatremia; Z79.4 Long term (current) use of insulin; K66.8 Other specified disorders of peritoneum; E86.1 Hypovolemia; E87.6 Hypokalemia; K59.00 Constipation, unspecified; R63.30 Feeding difficulties, unspecified; E86.0 Dehydration; E87.70 Fluid overload, unspecified; K80.20 Calculus of gallbladder without cholecystitis without obstruction; E78.5 Hyperlipidemia, unspecified; R53.81 Other malaise; I25.10 Atherosclerotic heart disease of native coronary artery without angina pectoris; Z96.652 Presence of left artificial knee joint; Z86.718 Personal history of other venous thrombosis and embolism; Z79.01 Long term (current) use of anticoagulants; Z79.890 Hormone replacement therapy; Z79.899 Other long term (current) drug therapy; Z79.82 Long term (current) use of aspirin; Z79.85 Long-term (current) use of injectable non-insulin antidiabetic drugs; Z79.1 Long term (current) use of non-steroidal anti-inflammatories (NSAID); Z92.3 Personal history of irradiation; Z95.1 Presence of aortocoronary bypass graft; Z87.311 Personal history of (healed) other pathological fracture
CPT/HCPCS: 36573; 37191; 71045; 74177; 80048; 80053; 82330; 82805; 83036; 83605; 83735; 84100; 84132; 84134; 84478; 85025; 85027; 86850; 86900; 86901; 86920; 87040; 87070; 87077; 87186; 87205; 88307; 93005; 94003; 94640; 94660; 99291

== ENCOUNTER → 2024-12-24 | Outpatient (CLI) | payer MEDICARE ==
--- NOTE | 2024-12-24 13:04 | XR ---
EXAMINATION TYPE: XR chest 2V DATE OF EXAM: 12/24/2024 12:34 PM COMPARISON: Chest radiographs from 11/01/2020 CLINICAL INDICATION: Female, 79 years old with history of C90.00, E11.9, E03.9, I25.2; [facility] TECHNIQUE: XR chest 2V Frontal and lateral views of the chest. FINDINGS: Lungs/Pleura: There is no evidence of pleural effusion, focal consolidation, or pneumothorax. Pulmonary vascularity: Unremarkable. Heart/mediastinum: Cardiomediastinal silhouette is unremarkable. Left atrial appendage occlusion lida ce is present. Musculoskeletal: No acute osseous pathology. Midline sternotomy wires are noted. Lucency under the right diaphragm suggestive of free air. IMPRESSION: 1. Questionable free air under the right diaphragm further evaluation with CT imaging recommended. 2. No additional acute process in the chest. Findings communicated to Himanshu Waggoner MD on 12/24/2024 1:[address] Barrie Keane. [facility], , 12/24/2024 1:01 PM
== END | disposition home or self-care (01) ==
LOC: RADXRMAIN 12:16
PROVIDERS: ATTEND Internal Medicine
DX: C90.00 Multiple myeloma not having achieved remission (principal); E11.9 Type 2 diabetes mellitus without complications; E03.9 Hypothyroidism, unspecified; I25.2 Old myocardial infarction
CPT/HCPCS: 71046

== ENCOUNTER → 2024-12-24 | Outpatient (CLI) | payer MEDICARE ==
--- NOTE | 2024-12-24 15:18 | CT ---
EXAMINATION TYPE: CT abdomen wo con DATE OF EXAM: 12/24/2024 COMPARISON: CT chest, abdomen and pelvis dated 10/22/2024 CLINICAL INDICATION: Female, 79 years old with history of C90.00 MULTIPLE MYELOMA NOT HAVING ACHIEVED REMISS; [facility], TECHNIQUE: CT of the abdomen performed with and , patient injected with mL of . CT DLP: mGycm CT CTDI: mGy Automated exposure control for dose reduction was used. FINDINGS: There is moderate to marked cardiomegaly. There is hazy or groundglass density in the lower lobes pos teriorly possibly on the basis of mild atelectasis from suboptimal inspiration. There are multiple large laminated gallstones but no gallbladder distention, pericholecystic fluid or biliary ductal dilatation. There is no organomegaly of the liver, pancreas, spleen or adrenal glands. There is moderate pancreat ic atrophy. There are no renal calcifications or hydronephrosis. The caliber of the abdominal aorta is normal and there is no retroperitoneal adenopathy or hemorrhage . The bowel loops are normal in caliber and there is no evidence of obstruction. Adjacent to the mid transverse colon there is abnormal density within the mesentery consistent with i nflammation. There is a small amount of free intraperitoneal air is question of acute diverticulitis with perforation. There is no intra-abdominal abscess. There is a lytic/destructive lesion in the L2 extending into the left pedicle and transverse process. There is a moderate pathologic compression fracture with no significant retropulsion. There are mult iple small lytic lesions in the sacrum. IMPRESSION: 1. Acute diverticulitis of the transverse colon with perforation and free intraperitoneal air no mohini l obstruction or abscess. 2. Multiple lytic lesions involving L2 and the sacrum with a moderate compression fracture of L2 desc ribed above. The findings are consistent with multiple myeloma which is the provided history. 3. Marked cholelithiasis . [facility], , 12/24/2024 3:16 PM
== END | disposition home or self-care (01) ==
LOC: RADCTMAIN 14:19
PROVIDERS: ATTEND Internal Medicine
DX: K57.32 Diverticulitis of large intestine without perforation or abscess without bleeding (principal); K80.20 Calculus of gallbladder without cholecystitis without obstruction; C90.00 Multiple myeloma not having achieved remission; M48.56XA Collapsed vertebra, not elsewhere classified, lumbar region, initial encounter for fracture
CPT/HCPCS: 74150

== ENCOUNTER 2025-01-29 18:07 | Inpatient (IN) | payer MEDICARE ==
--- NOTE | 2025-01-29 18:41 | ED ---
General Adult HPI - General Chief complaint: Weakness Stated complaint: AMS Time Seen by Provider: 01/29/25 18:14 Source: patient, EMS Mode of arrival: EMS Limitations: altered mental status - History of Present Illness Initial comments: This patient is a 79-year-old woman transferred here from [facility] emergency department. The patient reportedly had been taken there to have evaluation for a wound dehiscence. The patient had surgery for sigmoid diverticulitis, reportedly having colostomy December 26, 2024, by Dr. Rodriges. Transfer paperwork does not make clear and the patient is very somnolent, not giving any history. It is unknown when the dehiscence occurred. It involves the inferior end of the midline abdominal incision. The patient not reported to have had fever. When I interviewed the patient, she was very somnolent. She does arouse to physical stimulation but not answering any questions. Transfer notes do state that the patient has been receiving Ativan at the rehab facility due to agitation. Workup at the other facility included CBC which is notable for hemoglobin of 9.1, white blood cell count 8.5, platelet count normal. The BMP revealed BUN 33, creatinine 1.12, glucose 245, chloride 95 remainder within normal limits. Onset/Timin -: days(s) Treatments Prior to Arrival: none - Related Data Home Medications Medication Instructions Recorded Confirmed Dulaglutide [Trulicity] 0.75 mg SQ MO 11/09/24 12/24/24 dexAMETHasone [Decadron] 20 mg PO MO 11/09/24 12/24/24 Acyclovir [Zovirax] 400 mg PO BID 12/16/24 12/24/24 Bortezomib 1 dose INJ WE 12/16/24 12/24/24 Lenalidomide 15 mg PO DIRECTED 12/16/24 12/24/24 Ondansetron Odt [Zofran ODT] 4 mg PO Q8HR PRN 12/16/24 12/24/24 atenoloL [Tenormin] 25 mg PO HS 12/16/24 12/24/24 Previous Rx's Medication Instructions Recorded Levothyroxine Sodium [Synthroid] 112 mcg PO AC-BRKFST #30 tab 11/01/20 Pantoprazole [Protonix] 40 mg PO DAILY #30 tab 12/16/24 Acetaminophen Tab [Tylenol] 650 mg PO Q6HR PRN tab 12/25/24 INSULIN LISPRO (HumaLOG) [HumaLOG] 0 unit SQ ACHS each 12/25/24 atenoloL [Tenormin] 25 mg PO HS tab 12/25/24 Collagenase [Santyl Ointment] 1 applic TOPICAL DIRECTED #0 01/05/25 Ipratropium-Albuterol Nebulize 3 ml INHALATION Q4H PRN each 01/05/25 [Duoneb 0.5 mg-3 mg/3 ml Soln] Ipratropium-Albuterol Nebulize 3 ml INHALATION RT-QID each 01/05/25 [Duoneb 0.5 mg-3 mg/3 ml Soln] Mirtazapine [Remeron] 15 mg PO HS tab 01/05/25 cefuroxime axetiL [Ceftin] 500 mg PO BID #14 tab 01/05/25 metroNIDAZOLE [Flagyl] 500 mg PO TID #21 tab 01/05/25 traMADol HCL 25 mg PO Q8H PRN #9 tab 01/05/25 Torsemide [Demadex] 20 mg PO DAILY tab 01/06/25 Allergies Allergy/AdvReac Type Severity Reaction Status Date / Time epinephrine AdvReac Intermediate Rapid Verified 01/29/25 19:15 Heart Rate Review of Systems ROS Statement: Those systems with pertinent positive or pertinent negative responses have been documented in the HPI. ROS Other: All systems not noted in ROS Statement are negative. Limitations: ROS unobtainable due to patients medical condition Past Medical History Past Medical History: Coronary Artery Disease (CAD), Cancer, Diabetes Mellitus, Hyperlipidemia, Hypertension, Thyroid Disorder Additional Past Medical History / Comment(s): Chronic neck pain from compressed disks in her neck, cancer back History of Any Multi-Drug Resistant Organisms: None Reported Past Surgical History: Section, Orthopedic Surgery Additional Past Surgical History / Comment(s): Left knee replacement, bypass Past Psychological History: No Psychological Hx Reported Smoking Status: Never smoker Past Alcohol Use History: None Reported Past Drug Use History: None Reported - Past Family History Father Family Medical History: Myocardial Infarction ([place]) Additional Family Medical History / Comment(s): at 70 years old from myocardial infarction-suspected. Mother Additional Family Medical History / Comment(s): from "enlarged heart" at 87 years old Brother(s) Family Medical History: Coronary Artery Disease (CAD) Additional Family Medical History / Comment(s): Multiple stents placed Son(s) Family Medical History: CVA/TIA Additional Family Medical History / Comment(s): from stroke at 41 years old General Exam General appearance: other (Patient is somnolent but does arouse to tactile stimuli.) Head exam: Present: atraumatic, normocephalic Eye exam: Present: normal appearance, PERRL, EOMI. Absent: scleral icterus, conjunctival injection ENT exam: Present: mucous membranes dry Neck exam: Present: normal inspection. Absent: tenderness Respiratory exam: Present: normal lung sounds bilaterally. Absent: respiratory distress, wheezes, rales, rhonchi, stridor, accessory muscle use Cardiovascular Exam: Present: irregular rhythm, normal heart sounds. Absent: systolic murmur, diastolic murmur, rubs, gallop GI/Abdominal exam: Present: soft, other (The patient's midline incision does have dehiscence at the inferior portion. There is a small amount of white, turbid drainage. No abnormal erythema or warmth. The patient's left-sided ostomy does appear normal). Absent: distended, tenderness, guarding, rebound, rigid, mass Back exam: Present: normal inspection Neurological exam: Present: altered. Absent: motor sensory deficit Skin exam: Present: warm, dry, intact, normal color. Absent: rash Course Vital Signs 01/29/25 18:14 Temperature 97.7 F Pulse Rate 81 Respiratory 18 Rate Blood Pressure 114/78 O2 Sat by Pulse 99 Oximetry EKG Findings - EKG Comments: EKG Findings:: Patient's EKG appears to show trigeminal pattern with a rate of 81 bpm. There is interventricular conduction delay with QRS duration 132 ms, suspected old anteroseptal infarct. - EKG Results: EKG: interpreted by PRINCE, normal axis Medical Decision Making - Lab Data Result diagrams: 01/29/25 18:57 Lab Results 01/29/25 01/29/25 Range/Units 18:57 19:10 WBC 9.27 (4.50-10.00) 10*3/uL RBC 3.29 L (4.10-5.20) 10*6/uL Hgb 9.5 L (12.0-15.0) g/dL Hct 29.9 L (37.2-46.3) % MCV 90.9 (80.0-97.0) fL MCH 28.9 (27.0-32.0) pg MCHC 31.8 L (32.0-37.0) g/dL Plt Count 212 (140-440) 10*3/uL MPV 10.9 (9.5-12.2) fL Immature Gran % (Auto) 2.7 % Neutrophils % 77.1 % Lymphocytes % 15.2 % Monocytes % 4.0 % Eosinophils % 0.5 % Basophils % 0.5 % Immature Gran # 0.25 H (0.00-0.04) 10*3/uL Neutrophils # 7.14 (1.80-7.70) 10*3/uL Lymphocytes # 1.41 (0.90-5.00) 10*3/uL Monocytes # 0.37 (0.20-1.00) 10*3/uL Eosinophils # 0.05 (0.04-0.35) 10*3/uL Basophils # 0.05 (0.00-0.10) 10*3/uL POC Glucose (mg/dL) 232 H (70-110) mg/dL POC Glu [employer] Supervisor ID Deven Perry Disposition Referrals: Jarett Gomez Jr, DO [Primary Care Provider] - 1-2 days
[2025-01-29] MEDS: SODIUM CHLORIDE 0.9% 1,000 ML IV STA (18:53)
[2025-01-29] MEDS: SODIUM CHLORIDE 0.9% 500 ML 500 ML IV ONE (18:53)
[2025-01-29 19:04] LABS: Basophils # (A) 0.05 10*3/uL (0.00-0.10); Basophils % (A) 0.5 %; Eosinophils # (A) 0.05 10*3/uL (0.04-0.35); Eosinophils % (A) 0.5 %; HCT 29.9 % (37.2-46.3); HGB 9.5 g/dL (12.0-15.0); Lymphocytes # (A) 1.41 10*3/uL (0.90-5.00); Lymphocytes % (A) 15.2 %; MCH 28.9 pg (27.0-32.0); MCHC 31.8 g/dL (32.0-37.0); MCV 90.9 fL (80.0-97.0); Mean Platelet Volume 10.9 fL (9.5-12.2); Monocytes # (A) 0.37 10*3/uL (0.20-1.00); Neutrophils # (A) 7.14 10*3/uL (1.80-7.70); Neutrophils % (A) 77.1 %; Platelet Count 212 10*3/uL (140-440); RBC 3.29 10*6/uL (4.10-5.20); RDW 18.6 % (11.5-14.5); WBC 9.27 10*3/uL (4.50-10.00)
[2025-01-29 19:11] LABS: Glucose,Whole Blood 232 mg/dL (70-110)
[2025-01-29 19:20] LABS: ALT 22 U/L (4-34); AST 25 U/L (14-36); African American GFR (CKD) 77 (>60 ml/min/1.73 sqM); Albumin 3.3 g/dL (3.5-5.0); Alkaline Phosphatase 101 U/L (38-126); Anion Gap 8 mmol/L; Blood Urea Nitrogen 33 mg/dL (7-17); Calcium 9.1 mg/dL (8.4-10.2); Carbon Dioxide 32 mmol/L (22-30); Chloride 96 mmol/L (98-107); Glucose 198 mg/dL (74-99); INR 1.1 (<1.2); Non-African American GFR(CKD) 67 (>60 ml/min/1.73 sqM); Partial Thromboplastin Time 20.3 sec (22.0-30.0); Potassium 4.3 mmol/L (3.5-5.1); Sodium 136 mmol/L (137-145)
--- NOTE | 2025-01-29 20:46 | XR ---
EXAMINATION TYPE: XR chest 1V portable DATE OF EXAM: 01/29/2025 7:23 PM COMPARISON: Chest radiographs from 12/30/2024. CLINICAL INDICATION: Female, 79 years old with history of altered mental status; [facility] TECHNIQUE: XR chest 1V portable Frontal view of the chest. FINDINGS: Lungs/Pleura: There is no evidence of pleural effusion, focal consolidation, or pneumothorax. Pulmonary vascularity: Unremarkable. Heart/mediastinum: Cardiomediastinal silhouette is enlarged. Left atrial appendage occlusion device i s present. Musculoskeletal: No acute osseous pathology. Gallstones present in the right upper quadrant. IMPRESSION: Low lung volumes with a generalized hazy appearance which could represent atelectasis versus pulmonar y edema correlate with serum BNP. [facility], , 01/29/2025 8:44 PM
[2025-01-29] MEDS ORDERED: HEPARIN SODIUM 1,000 UN/ML (10ML VL) IV PRN (22:11)
[2025-01-29] MEDS: HEPARIN SODIUM 1,000 UN/ML (10ML VL) IV ONE (22:29)
[2025-01-29] MEDS: HEPARIN SOD,PORK IN 0.45% NACL 25,000 UNIT in 0.45% NACL 1 250ML.BAG IV SCH (22:30)
[2025-01-29] MEDS: FUROSEMIDE 10 MG/ML 4 ML VIAL IV STA (23:07)
[2025-01-29] MEDS ORDERED: NALOXONE 0.4 MG/ML 1 ML VIAL IV PRN (23:12)
[2025-01-29] MEDS ORDERED: ONDANSETRON 4 MG/2 ML VIAL IVP PRN (23:12)
--- NOTE | 2025-01-29 23:27 | CT ---
EXAMINATION TYPE: CT abdomen pelvis w con CT DLP: 1001.9 mGycm, Automated exposure control for dose reduction was used. DATE OF EXAM: 01/29/2025 10:25 PM COMPARISON: CT abdomen pelvis 12/26/2024, CT abdomen 12/24/2024 CLINICAL INDICATION:Female, 79 years old with history of recent colostomy/altered mental status; Pt p resents to ED due to increasing weakness and lethargy. TECHNIQUE: Standard CT of the abdomen and pelvis following the administration of 100 cc of Isovue 3 00 IV contrast material. Coronal and sagittal reformats were performed. FINDINGS: LOWER CHEST: Left pleural effusion. Bibasilar dependent subsegmental atelectasis. Cardiomegaly. Parti al visualization of median sternotomy wires. Elevation the right hemidiaphragm. ABDOMEN LIVER: Unremarkable GALLBLADDER AND BILE DUCTS: Multiple gallstones identified. No surrounding inflammatory changes or bi liary ductal dilatation. PANCREAS: Unremarkable. SPLEEN: Unremarkable. ADRENAL GLANDS: Unremarkable. KIDNEYS AND URETERS: No evidence of hydronephrosis or renal calculus. The kidneys enhance symmetrical ly. Stable bilateral renal cysts with largest involving the right kidney measuring up to 2.3 cm and l argest within the superior pole of the left kidney measuring up to 3.5 cm. Contrast is definitely wit hin both renal collecting systems on the delayed phase. No enteric contrast identified within the rec lashawn stump. PELVIS BLADDER: Unremarkable REPRODUCTIVE: Unremarkable. ABDOMEN & PELVIS STOMACH AND BOWEL: Stomach and duodenum are unremarkable. Postsurgical changes with left lower quadra nt and colostomy and Billy's pouch. No evidence of bowel obstruction. PERITONEUM: No evidence of pneumoperitoneum. There is a rim-enhancing organized fluid collection with in the anterior central to left pelvis with fluid and gas measuring 10.4 x 6.6 x 6.3 cm in TV, AP, CC dimensions (series 201, image 62). This is the site of previously demonstrated fluid collection abov e the urinary bladder with abutment. There is abutment of the uterus. There is surrounding regions of bowel. Additional developing phlegmon versus early abscess within the anterior mesentery measuring u p to 1.7 cm. (Series 201:49). VASCULATURE: Moderate atherosclerotic calcifications are present throughout the abdominal aorta and i ts branches. No evidence of aortic aneurysm. Infrarenal IVC filter in place. MUSCULOSKELETAL: No acute osseous abnormalities. Lytic/destructive lesion the L2 vertebral body exten ding into the left outer quadrants of process again. Moderate pathologic compression fracture with no significant retropulsion. Additional multiple small lytic lesions in the sacrum. Remote injury to th e pubic symphysis redemonstrated. Multilevel degenerative disc disease. LYMPH NODES: No gross evidence for lymphadenopathy. SOFT TISSUE/ABDOMINAL WALL: Surgical changes of the midline anterior abdominal wall with fluid and ga s at the incision site measuring grossly 2.2 x 1.6 x 11.6 cm in TV, AP, and CC dimensions. This is at the umbilical region extending inferiorly. Left lower quadrant anterior abdominal wall ostomy with s ome stranding changes. IMPRESSION: 1. Development of an abscess measuring up to 10.4 cm within the anterior pelvis just above the urina ry bladder at site of previously seen gas and fluid collection. Additional developing phlegmon versus early abscess within the anterior mesentery measuring up to 1.7 cm. 2. Additional organized gas and fluid within the midline anterior abdominal wall incision track kt rning for abscess. 3. Interval postsurgical changes from left lower quadrant end colostomy with Billy's pouch. 4. Multiple lytic lesions involving L2 and the sacrum with moderate compression fracture of L2 again. Consistent with reported multiple myeloma. 5. Cholelithiasis. 6. Trace left pleural effusion. [facility], , 01/29/2025 11:25 PM
[2025-01-29] MEDS: SODIUM CHLORIDE 0.9% 1,000 ML IV SCH (23:35)
[2025-01-30] MEDS ORDERED: VANCOMYCIN IV PER PHARMACY 1 EACH MISC MISCELLANE PRN (00:09)
[2025-01-30 00:30] LABS: Appearance,Urine Turbid (Clear); Bilirubin,Urine Negative (Negative); Blood,Urine Moderate (Negative); Budding Yeast,Urine Many /hpf; Color,Urine Colorless; Glucose,Urine (UA) Negative (Negative); Ketones,Urine Negative (Negative); Leukocyte Esterase,Urine Large (Negative); Nitrite,Urine Negative (Negative); PH, Urine 7.5 (5.0-8.0); Protein,Urine 1+ (Negative); RBC,Urine 62 /hpf (0-5); Specific Gravity,Urine 1.019 (1.001-1.035); Urobilinogen,Urine <2.0 mg/dL (<2.0); WBC,Urine >182 /hpf (0-5)
[2025-01-30] MEDS: VANCOMYCIN 1,250 MG in SODIUM CHLORIDE 0.9% 250 ML IVPB SCH (01:13)
[2025-01-30] MEDS: metroNIDAZOLE-NS PMX 500 MG in SALINE 1 100ML.BAG IVPB SCH ×2 (01:20→03:52)
[2025-01-30] MEDS ORDERED: metroNIDAZOLE-NS PMX 500 MG in SALINE 1 100ML.BAG IVPB SCH (03:00)
[2025-01-30 06:04] LABS: Glucose,Whole Blood 211 mg/dL (70-110)
[2025-01-30] MEDS ORDERED: MAGNESIUM HYDROXIDE 2,400 MG/30 ML CUP PO PRN (07:03)
[2025-01-30] MEDS ORDERED: ONDANSETRON ODT 4 MG TAB PO PRN (07:03)
[2025-01-30] MEDS ORDERED: IPRATROPIUM-ALBUTEROL 3 ML NEB INHALATION PRN (07:03)
[2025-01-30] MEDS: MULTIVITAMINS, THERA 1 EACH TAB PO SCH (08:35)
[2025-01-30] MEDS: PANTOPRAZOLE 40 MG TABLET PO SCH (08:36)
[2025-01-30] MEDS: POTASSIUM CHLORIDE ER 10 MEQ TAB.ER.PRT PO SCH (08:36)
[2025-01-30] MEDS: TORSEMIDE 20 MG TAB PO SCH (08:37)
[2025-01-30] MEDS: INSULIN LISPRO (HumaLOG) 100 UNIT/ML 10 mL VL SQ SCH (08:41)
--- NOTE | 2025-01-30 10:34 | P.HPIM ---
History of Present Illness H&P Date: 01/30/25 This is a 79-year-old female well-known to me. She has some mild confusion. She underwent a colostomy for sigmoid diverticulitis on December 26, 2024 Dr. Rodriges. We are following medically at that time. She improved and often was transferred to an ECF in [place] closer to her family. She was in [facility] and transferred here to [facility]. She is found to have a fever. CT scan showed development of an abscess measuring up to 10.4 cm in the anterior pelvis just above the urinary bladder. There was an additional developing phlegmon or early abscess in the anterior mesentery measuring 1.7 cm. She has been started on on antibiotics of ceftriaxone and her home medications. She has also received vancomycin. She receives dexamethasone daily to help immunosuppressed her multiple myeloma. This morning she is somnolent. Staff indicate that this has been her baseline for the past several hours. She denies any complaints to me at this time. Review of Systems All systems: negative Past Medical History Past Medical History: Coronary Artery Disease (CAD), Cancer, Diabetes Mellitus, Hyperlipidemia, Hypertension, Thyroid Disorder Additional Past Medical History / Comment(s): Chronic neck pain from compressed disks in her neck, cancer back History of Any Multi-Drug Resistant Organisms: None Reported Past Surgical History: Section, Orthopedic Surgery Additional Past Surgical History / Comment(s): Left knee replacement, bypass, sigmoidectomy with colostomy placement on 12.28.24 r/t perforated diverticulitus Past Anesthesia/Blood Transfusion Reactions: Unable to Obtain Past Psychological History: No Psychological Hx Reported Smoking Status: Never smoker Past Alcohol Use History: None Reported Past Drug Use History: None Reported - Past Family History Father Family Medical History: Myocardial Infarction ([place]) Additional Family Medical History / Comment(s): at 70 years old from myocardial infarction-suspected. Mother Additional Family Medical History / Comment(s): from "enlarged heart" at 87 years old Brother(s) Family Medical History: Coronary Artery Disease (CAD) Additional Family Medical History / Comment(s): Multiple stents placed Son(s) Family Medical History: CVA/TIA Additional Family Medical History / Comment(s): from stroke at 41 years old Medications and Allergies Home Medications Medication Instructions Recorded Confirmed Type Dulaglutide [Trulicity] 0.75 mg SQ TH 11/09/24 01/29/25 History dexAMETHasone [Decadron] 20 mg PO MO 11/09/24 01/29/25 History Pantoprazole [Protonix] 40 mg PO DAILY #30 tab 12/16/24 01/29/25 Rx Acetaminophen Tab [Tylenol] 650 mg PO Q6HR PRN 01/29/25 01/29/25 History Collagenase [Santyl Ointment] 1 applic TOPICAL Q2D@2100 01/29/25 01/29/25 History Escitalopram [Lexapro] 10 mg PO DAILY 01/29/25 01/29/25 History Glycerin Adult Suppository 1 supp RECTAL DAILY PRN 01/29/25 01/29/25 History INSULIN LISPRO (HumaLOG) [HumaLOG] See Protocol SQ ACHS 01/29/25 01/29/25 History Ipratropium-Albuterol Nebulize 3 ml INHALATION RT-Q4H PRN 01/29/25 01/29/25 History [Duoneb 0.5 mg-3 mg/3 ml Soln] LORazepam [Ativan] 0.5 mg PO Q8H PRN 01/29/25 01/29/25 History Levothyroxine Sodium [Synthroid] 112 mcg PO DAILY 01/29/25 01/29/25 History Magnesium Hydroxide [Milk of 2,400 mg PO DIRECTED PRN 01/29/25 01/29/25 History Magnesia] Mirtazapine 7.5 mg PO HS 01/29/25 01/29/25 History Multivitamins, Thera [Multivitamin 1 tab PO DAILY 01/29/25 01/29/25 History (formulary)] Ondansetron [Zofran] 4 mg PO Q8HR PRN 01/29/25 01/29/25 History Potassium Chloride ER [K-Dur 10] 10 meq PO BID 01/29/25 01/29/25 History Torsemide [Demadex] 20 mg PO BID 01/29/25 01/29/25 History atenoloL [Tenormin] 25 mg PO HS 01/29/25 01/29/25 History traMADol HCL 50 mg PO Q8H PRN 01/29/25 01/29/25 History Allergies Allergy/AdvReac Type Severity Reaction Status Date / Time epinephrine AdvReac Intermediate Rapid Verified 01/29/25 19:15 Heart Rate Physical Exam Vitals: Vital Signs Temp Pulse Pulse Resp BP BP BP 01/30/25 08:00 98.3 F 86 20 122/63 01/30/25 04:00 98.2 F 72 16 154/83 01/30/25 01:15 98.9 F 73 24 118/73 01/30/25 00:10 98.2 F 79 17 126/70 01/29/25 23:03 73 21 130/73 01/29/25 22:30 73 22 113/66 01/29/25 21:00 80 16 135/71 01/29/25 19:38 98.4 F 84 17 138/81 01/29/25 18:14 97.7 F 81 18 114/78 Pulse Ox 01/30/25 08:00 99 01/30/25 04:00 100 01/30/25 01:15 99 01/30/25 00:10 98 01/29/25 23:03 100 01/29/25 22:30 100 01/29/25 21:00 100 01/29/25 19:38 100 01/29/25 18:14 95 Intake and Output 01/29/25 01/30/25 01/30/25 22:59 06:59 14:59 Output Total 700 Balance -700 Output: Urine 700 Other: Voiding Method External Catheter External Catheter Weight 64.4 kg 64.5 kg GENERAL: Elderly female sleeping, arousable HEAD: Atraumatic, normocephalic. EYES: Pupils equal round and reactive to light, extraocular movements intact, sclera anicteric, conjunctiva are normal. ENT:nares patent, oropharynx clear without exudates. Moist mucous membranes. NECK: Normal range of motion, supple without lymphadenopathy or JVD, no thyromegaly LUNGS: Breath sounds clear to auscultation bilaterally and equal. No wheezes rales or rhonchi. HEART: Regular rate and rhythm without murmurs, rubs or gallops.S1S2 Normal ABDOMEN: Soft, minimally tender, no rebound, colostomy in place. EXTREMITIES: Normal range of motion, no pitting or edema. No clubbing or cyanosis. NEUROLOGICAL: Cranial nerves II through XII grossly intact. Normal speech, gait not tested, patient sleeping but arousable. PSYCH: Normal mood, normal affect. SKIN: Warm, Dry, normal turgor, no rashes or lesions noted. Results CBC & Chem 7: 01/29/25 18:57 01/29/25 18:57 Labs: Abnormal Lab Results - Last 24 Hours (Table) 01/29/25 01/29/25 01/29/25 Range/Units 18:57 18:57 18:57 RBC 3.29 L (4.10-5.20) 10*6/uL Hgb 9.5 L (12.0-15.0) g/dL Hct 29.9 L (37.2-46.3) % MCHC 31.8 L (32.0-37.0) g/dL Immature Gran # 0.25 H (0.00-0.04) 10*3/uL APTT 20.3 L (22.0-30.0) sec Sodium 136 L (137-145) mmol/L Chloride 96 L (98-107) mmol/L Carbon Dioxide 32 H (22-30) mmol/L BUN 33 H (7-17) mg/dL Glucose 198 H (74-99) mg/dL POC Glucose (mg/dL) (70-110) mg/dL Magnesium (1.6-2.3) mg/dL Albumin 3.3 L (3.5-5.0) g/dL Urine Appearance (Clear) Urine Protein (Negative) Urine Blood (Negative) Ur Leukocyte Esterase (Negative) Urine RBC (0-5) /hpf Urine WBC (0-5) /hpf Urine WBC Clumps (None) /hpf Urine Yeast (Budding) (None) /hpf 01/29/25 01/29/25 01/30/25 Range/Units 18:57 19:10 00:05 RBC (4.10-5.20) 10*6/uL Hgb (12.0-15.0) g/dL Hct (37.2-46.3) % MCHC (32.0-37.0) g/dL Immature Gran # (0.00-0.04) 10*3/uL APTT (22.0-30.0) sec Sodium (137-145) mmol/L Chloride (98-107) mmol/L Carbon Dioxide (22-30) mmol/L BUN (7-17) mg/dL Glucose (74-99) mg/dL POC Glucose (mg/dL) 232 H (70-110) mg/dL Magnesium 1.5 L (1.6-2.3) mg/dL Albumin (3.5-5.0) g/dL Urine Appearance Turbid H (Clear) Urine Protein 1+ H (Negative) Urine Blood Moderate H (Negative) Ur Leukocyte Esterase Large H (Negative) Urine RBC 62 H (0-5) /hpf Urine WBC >182 H (0-5) /hpf Urine WBC Clumps Few H (None) /hpf Urine Yeast (Budding) Many H (None) /hpf 01/30/25 Range/Units 06:03 RBC (4.10-5.20) 10*6/uL Hgb (12.0-15.0) g/dL Hct (37.2-46.3) % MCHC (32.0-37.0) g/dL Immature Gran # (0.00-0.04) 10*3/uL APTT (22.0-30.0) sec Sodium (137-145) mmol/L Chloride (98-107) mmol/L Carbon Dioxide (22-30) mmol/L BUN (7-17) mg/dL Glucose (74-99) mg/dL POC Glucose (mg/dL) 211 H (70-110) mg/dL Magnesium (1.6-2.3) mg/dL Albumin (3.5-5.0) g/dL Urine Appearance (Clear) Urine Protein (Negative) Urine Blood (Negative) Ur Leukocyte Esterase (Negative) Urine RBC (0-5) /hpf Urine WBC (0-5) /hpf Urine WBC Clumps (None) /hpf Urine Yeast (Budding) (None) /hpf Microbiology - Last 24 Hours (Table) 01/29/25 18:57 Gram Stain - Preliminary Abdomen Thrombosis Risk Factor Assmnt - DVT/VTE Prophylaxis DVT/VTE Prophylaxis: Mechanical Prophylaxis ordered - Choose All That Apply Any of the Below Risk Factors Present?: Yes Each Factor Represents 1 point: History of prior major surgery (<1month), Medical pt on bed rest, Obesity (BMI >25), Swollen legs (current) Each Risk Factor Represents 2 Points: Patient confined to bed Each Risk Factor Represents 3 Points: Age 75 years or older Thrombosis Risk Factor Assessment Total Risk Factor Score: 9 Thrombosis Risk Factor Assessment Level: High Risk Assessment and Plan (1) Abdominal abscess Current Visit: Yes Status: Acute Code(s): OJS9382 - SNOMED Code(s): 03479031 (2) Colostomy status Current Visit: Yes Status: Acute Code(s): Z93.3 - COLOSTOMY STATUS SNOMED Code(s): 011488741 (3) Abdominal pain Current Visit: No Status: Acute Code(s): R10.9 - UNSPECIFIED ABDOMINAL PAIN SNOMED Code(s): 86094705 (4) Deep vein thrombosis (DVT) of lower extremity Current Visit: No Status: Acute Priority: Medium Code(s): I82.409 - ACUTE EMBOLISM AND THOMBOS UNSP DEEP VN UNSP LOWER EXTREMITY SNOMED Code(s): 312074734 (5) Dehydration Current Visit: No Status: Acute Code(s): E86.0 - DEHYDRATION SNOMED Code(s): 28981803 (6) H/O four vessel coronary artery bypass graft Current Visit: No Status: Acute Code(s): Z95.1 - PRESENCE OF AORTOCORONARY BYPASS GRAFT SNOMED Code(s): 142926367 (7) Hypertension Current Visit: No Status: Acute Code(s): I10 - ESSENTIAL (PRIMARY) HYPERTENSION SNOMED Code(s): 49062826 (8) Multiple myeloma Current Visit: No Status: Acute Code(s): C90.00 - MULTIPLE MYELOMA NOT HAVING ACHIEVED REMISSION SNOMED Code(s): 290054382 (9) Normochromic anemia Current Visit: No Status: Acute Code(s): D64.9 - ANEMIA, UNSPECIFIED SNOMED Code(s): 05651833 (10) Protein-calorie malnutrition, mild Current Visit: No Status: Acute Code(s): E44.1 - MILD PROTEIN-CALORIE MALNUTRITION SNOMED Code(s): 196216651 (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
--- NOTE | 2025-01-30 11:58 | P.GSCN ---
History of Present Illness Consult date: 01/30/25 Reason for Consult: Intra-abdominal abscess, history of perforated diverticulitis History of present illness: This a 79-year-old female with multiple medical problems. Patient underwent Kenzie procedure for perforated diverticulitis approxi-1 month ago. Patient states at the care home she developed some redness along her incision this week. The incision started to spontaneously drain. The patient had a CAT scan performed emergency room which shows evidence of a 10 cm intra-abdominal abscess. Patient currently denies any pain. Past Medical History Past Medical History: Coronary Artery Disease (CAD), Cancer, Diabetes Mellitus, Hyperlipidemia, Hypertension, Thyroid Disorder Additional Past Medical History / Comment(s): Chronic neck pain from compressed disks in her neck, cancer back History of Any Multi-Drug Resistant Organisms: None Reported Past Surgical History: Section, Orthopedic Surgery Additional Past Surgical History / Comment(s): Left knee replacement, bypass, sigmoidectomy with colostomy placement on 12.28.24 r/t perforated diverticulitus Past Anesthesia/Blood Transfusion Reactions: Unable to Obtain Past Psychological History: No Psychological Hx Reported Smoking Status: Never smoker Past Alcohol Use History: None Reported Past Drug Use History: None Reported - Past Family History Father Family Medical History: Myocardial Infarction ([place]) Additional Family Medical History / Comment(s): at 70 years old from myocardial infarction-suspected. Mother Additional Family Medical History / Comment(s): from "enlarged heart" at 87 years old Brother(s) Family Medical History: Coronary Artery Disease (CAD) Additional Family Medical History / Comment(s): Multiple stents placed Son(s) Family Medical History: CVA/TIA Additional Family Medical History / Comment(s): from stroke at 41 years old Medications and Allergies Home Medications Medication Instructions Recorded Confirmed Type Dulaglutide [Trulicity] 0.75 mg SQ TH 11/09/24 01/29/25 History dexAMETHasone [Decadron] 20 mg PO MO 11/09/24 01/29/25 History Pantoprazole [Protonix] 40 mg PO DAILY #30 tab 12/16/24 01/29/25 Rx Acetaminophen Tab [Tylenol] 650 mg PO Q6HR PRN 01/29/25 01/29/25 History Collagenase [Santyl Ointment] 1 applic TOPICAL Q2D@2100 01/29/25 01/29/25 History Escitalopram [Lexapro] 10 mg PO DAILY 01/29/25 01/29/25 History Glycerin Adult Suppository 1 supp RECTAL DAILY PRN 01/29/25 01/29/25 History INSULIN LISPRO (HumaLOG) [HumaLOG] See Protocol SQ ACHS 01/29/25 01/29/25 History Ipratropium-Albuterol Nebulize 3 ml INHALATION RT-Q4H PRN 01/29/25 01/29/25 History [Duoneb 0.5 mg-3 mg/3 ml Soln] LORazepam [Ativan] 0.5 mg PO Q8H PRN 01/29/25 01/29/25 History Levothyroxine Sodium [Synthroid] 112 mcg PO DAILY 01/29/25 01/29/25 History Magnesium Hydroxide [Milk of 2,400 mg PO DIRECTED PRN 01/29/25 01/29/25 History Magnesia] Mirtazapine 7.5 mg PO HS 01/29/25 01/29/25 History Multivitamins, Thera [Multivitamin 1 tab PO DAILY 01/29/25 01/29/25 History (formulary)] Ondansetron [Zofran] 4 mg PO Q8HR PRN 01/29/25 01/29/25 History Potassium Chloride ER [K-Dur 10] 10 meq PO BID 01/29/25 01/29/25 History Torsemide [Demadex] 20 mg PO BID 01/29/25 01/29/25 History atenoloL [Tenormin] 25 mg PO HS 01/29/25 01/29/25 History traMADol HCL 50 mg PO Q8H PRN 01/29/25 01/29/25 History Allergies Allergy/AdvReac Type Severity Reaction Status Date / Time epinephrine AdvReac Intermediate Rapid Verified 01/29/25 19:15 Heart Rate Surgical - Exam Vital Signs Temp Pulse Resp BP Pulse Ox 97.7 F 81 18 114/78 95 01/29/25 18:14 01/29/25 18:14 01/29/25 18:14 01/29/25 18:14 01/29/25 18:14 - General well developed, no distress - Eyes PERRL - ENT normal pinna - Neck no masses - Respiratory normal expansion - Cardiovascular Rhythm: regular - Abdomen Colostomy left lower quadrant Abdomen: soft Results - Labs 01/29/25 18:57 01/29/25 18:57 Abnormal Lab Results - Last 24 Hours (Table) 01/29/25 01/29/25 01/29/25 Range/Units 18:57 18:57 18:57 RBC 3.29 L (4.10-5.20) 10*6/uL Hgb 9.5 L (12.0-15.0) g/dL Hct 29.9 L (37.2-46.3) % MCHC 31.8 L (32.0-37.0) g/dL Immature Gran # 0.25 H (0.00-0.04) 10*3/uL APTT 20.3 L (22.0-30.0) sec Sodium 136 L (137-145) mmol/L Chloride 96 L (98-107) mmol/L Carbon Dioxide 32 H (22-30) mmol/L BUN 33 H (7-17) mg/dL Glucose 198 H (74-99) mg/dL POC Glucose (mg/dL) (70-110) mg/dL Magnesium (1.6-2.3) mg/dL Albumin 3.3 L (3.5-5.0) g/dL Urine Appearance (Clear) Urine Protein (Negative) Urine Blood (Negative) Ur Leukocyte Esterase (Negative) Urine RBC (0-5) /hpf Urine WBC (0-5) /hpf Urine WBC Clumps (None) /hpf Urine Yeast (Budding) (None) /hpf 01/29/25 01/29/25 01/30/25 Range/Units 18:57 19:10 00:05 RBC (4.10-5.20) 10*6/uL Hgb (12.0-15.0) g/dL Hct (37.2-46.3) % MCHC (32.0-37.0) g/dL Immature Gran # (0.00-0.04) 10*3/uL APTT (22.0-30.0) sec Sodium (137-145) mmol/L Chloride (98-107) mmol/L Carbon Dioxide (22-30) mmol/L BUN (7-17) mg/dL Glucose (74-99) mg/dL POC Glucose (mg/dL) 232 H (70-110) mg/dL Magnesium 1.5 L (1.6-2.3) mg/dL Albumin (3.5-5.0) g/dL Urine Appearance Turbid H (Clear) Urine Protein 1+ H (Negative) Urine Blood Moderate H (Negative) Ur Leukocyte Esterase Large H (Negative) Urine RBC 62 H (0-5) /hpf Urine WBC >182 H (0-5) /hpf Urine WBC Clumps Few H (None) /hpf Urine Yeast (Budding) Many H (None) /hpf 01/30/25 Range/Units 06:03 RBC (4.10-5.20) 10*6/uL Hgb (12.0-15.0) g/dL Hct (37.2-46.3) % MCHC (32.0-37.0) g/dL Immature Gran # (0.00-0.04) 10*3/uL APTT (22.0-30.0) sec Sodium (137-145) mmol/L Chloride (98-107) mmol/L Carbon Dioxide (22-30) mmol/L BUN (7-17) mg/dL Glucose (74-99) mg/dL POC Glucose (mg/dL) 211 H (70-110) mg/dL Magnesium (1.6-2.3) mg/dL Albumin (3.5-5.0) g/dL Urine Appearance (Clear) Urine Protein (Negative) Urine Blood (Negative) Ur Leukocyte Esterase (Negative) Urine RBC (0-5) /hpf Urine WBC (0-5) /hpf Urine WBC Clumps (None) /hpf Urine Yeast (Budding) (None) /hpf Microbiology - Last 24 Hours (Table) 01/29/25 18:57 Gram Stain - Preliminary Abdomen Diabetes panel 01/29/25 Range/Units 18:57 Sodium 136 L (137-145) mmol/L Potassium 4.3 (3.5-5.1) mmol/L Chloride 96 L (98-107) mmol/L Carbon Dioxide 32 H (22-30) mmol/L BUN 33 H (7-17) mg/dL Creatinine 0.85 (0.52-1.04) mg/dL Glucose 198 H (74-99) mg/dL Calcium 9.1 (8.4-10.2) mg/dL AST 25 (14-36) U/L ALT 22 (4-34) U/L Alkaline Phosphatase 101 (38-126) U/L Total Protein 7.0 (6.3-8.2) g/dL Albumin 3.3 L (3.5-5.0) g/dL Calcium panel 01/29/25 Range/Units 18:57 Calcium 9.1 (8.4-10.2) mg/dL Albumin 3.3 L (3.5-5.0) g/dL Pituitary panel 01/29/25 Range/Units 18:57 Sodium 136 L (137-145) mmol/L Potassium 4.3 (3.5-5.1) mmol/L Chloride 96 L (98-107) mmol/L Carbon Dioxide 32 H (22-30) mmol/L BUN 33 H (7-17) mg/dL Creatinine 0.85 (0.52-1.04) mg/dL Glucose 198 H (74-99) mg/dL Calcium 9.1 (8.4-10.2) mg/dL Adrenal panel 01/29/25 Range/Units 18:57 Sodium 136 L (137-145) mmol/L Potassium 4.3 (3.5-5.1) mmol/L Chloride 96 L (98-107) mmol/L Carbon Dioxide 32 H (22-30) mmol/L BUN 33 H (7-17) mg/dL Creatinine 0.85 (0.52-1.04) mg/dL Glucose 198 H (74-99) mg/dL Calcium 9.1 (8.4-10.2) mg/dL Total Bilirubin 1.0 (0.2-1.3) mg/dL AST 25 (14-36) U/L ALT 22 (4-34) U/L Alkaline Phosphatase 101 (38-126) U/L Total Protein 7.0 (6.3-8.2) g/dL Albumin 3.3 L (3.5-5.0) g/dL Assessment and Plan Plan: CT scan shows evidence of a 10 cm intra-abdominal abscess. Patient will require interventional radiology for CT-guided drainage catheter. She will remain on antibiotics. Patient will resume regular diet until the day of her procedure.
[2025-01-30 12:09] LABS: Glucose,Whole Blood 174 mg/dL (70-110)
[2025-01-30 16:59] LABS: Glucose,Whole Blood 174 mg/dL (70-110)
[2025-01-30] MEDS: ESCITALOPRAM 10 MG TAB PO SCH (17:18)
[2025-01-30] MEDS: LEVOTHYROXINE 112 MCG TAB PO SCH (17:18)
[2025-01-30] MEDS: traMADol 50 MG TAB PO PRN (17:45)
[2025-01-30 20:07] LABS: Glucose,Whole Blood 208 mg/dL (70-110)
[2025-01-30] MEDS: atenoloL 25 MG TAB PO SCH (20:23)
[2025-01-30] MEDS: MIRTAZAPINE 15 MG TAB PO SCH (20:32)
[2025-01-31 06:03] LABS: Glucose,Whole Blood 153 mg/dL (70-110)
[2025-01-31 07:50] LABS: Basophils # (A) 0.04 10*3/uL (0.00-0.10); Basophils % (A) 0.5 %; Eosinophils # (A) 0.05 10*3/uL (0.04-0.35); Eosinophils % (A) 0.7 %; HCT 28.2 % (37.2-46.3); HGB 8.4 g/dL (12.0-15.0); Lymphocytes # (A) 1.08 10*3/uL (0.90-5.00); Lymphocytes % (A) 14.7 %; MCH 28.8 pg (27.0-32.0); MCHC 29.8 g/dL (32.0-37.0); Monocytes # (A) 0.45 10*3/uL (0.20-1.00); Monocytes % (A) 6.1 %; Neutrophils # (A) 5.61 10*3/uL (1.80-7.70); Neutrophils % (A) 76.6 %; Platelet Count 185 10*3/uL (140-440); RBC 2.92 10*6/uL (4.10-5.20); RDW 18.6 % (11.5-14.5); WBC 7.33 10*3/uL (4.50-10.00)
[2025-01-31 08:06] LABS: MCV 96.6 fL (80.0-97.0)
[2025-01-31 08:11] LABS: ALT 14 U/L (4-34); AST 24 U/L (14-36); African American GFR (CKD) >90 (>60 ml/min/1.73 sqM); Albumin 2.8 g/dL (3.5-5.0); Alkaline Phosphatase 85 U/L (38-126); Anion Gap 10 mmol/L; Blood Urea Nitrogen 25 mg/dL (7-17); Calcium 8.6 mg/dL (8.4-10.2); Carbon Dioxide 27 mmol/L (22-30); Chloride 103 mmol/L (98-107); Glucose 143 mg/dL (74-99); Magnesium 1.5 mg/dL (1.6-2.3); Non-African American GFR(CKD) 80 (>60 ml/min/1.73 sqM); Potassium 3.7 mmol/L (3.5-5.1); Sodium 140 mmol/L (137-145); Total Protein 6.3 g/dL (6.3-8.2)
--- NOTE | 2025-01-31 09:48 | P.CONS ---
History of Present Illness - Reason for Consult Consult date: 01/30/25 Intra-abdominal abscess Requesting physician: Mark Park - Chief Complaint Abdominal incision dehiscence x days - History of Present Illness Patient is a 79-year-old female with a past medical history significant for coronary disease diabetes mellitus hypertension hyperlipidemia thyroid disorder in this patient who recently admitted to the hospital with pe rforated diverticulitis status post sigmoid colectomy colostomy patient was subsequently discharged to the group home patient apparently did have dehiscence of the lower end of her incision while in the group home and there was some erythema for the patient has been treated with an oral antibiotic however did not very clear about the name of those antibiotic subsequently patient was noticed to have a fever for the patient was sent to [facility] where the patient did have CT abdominal pelvis that shows evidence of an abscess measuring up to 10.4 cm just above the bladder patient was started on vancomycin received a dose of Rocephin admit to the hospital infectious disease was consulted for further management of antibiotic therapy on presentation the hospital the patient was afebrile no fever have been recorded subsequently patient was mildly tachycardic but not hypotensive or hypoxic no need for supplemental oxygen patient did have a white count of 9.27 creatinine 0.85 liver enzymes are normal urine has been positive local cultures obtained as well as blood cultures are currently pending. Patient did have chest x-ray low lung volumes with generalized hazy appearance, patient currently breathing comfortably on room air denies any headache no chest pain shortness of breath no cough did have mild discomfort from the lower abdominal area around incision which is currently packed Review of Systems Positive point and negatives has been mentioned in the HPI, complete review of systems was performed and all other systems are negative Past Medical History Past Medical History: Coronary Artery Disease (CAD), Cancer, Diabetes Mellitus, Hyperlipidemia, Hypertension, Thyroid Disorder Additional Past Medical History / Comment(s): Chronic neck pain from compressed disks in her neck, cancer back History of Any Multi-Drug Resistant Organisms: None Reported Past Surgical History: Section, Orthopedic Surgery Additional Past Surgical History / Comment(s): Left knee replacement, bypass, sigmoidectomy with colostomy placement on 12.28.24 r/t perforated diverticulitus Past Anesthesia/Blood Transfusion Reactions: Unable to Obtain Past Psychological History: No Psychological Hx Reported Smoking Status: Never smoker Past Alcohol Use History: None Reported Past Drug Use History: None Reported - Past Family History Father Family Medical History: Myocardial Infarction ([place]) Additional Family Medical History / Comment(s): at 70 years old from myocardial infarction-suspected. Mother Additional Family Medical History / Comment(s): from "enlarged heart" at 87 years old Brother(s) Family Medical History: Coronary Artery Disease (CAD) Additional Family Medical History / Comment(s): Multiple stents placed Son(s) Family Medical History: CVA/TIA Additional Family Medical History / Comment(s): from stroke at 41 years old Medications and Allergies Home Medications Medication Instructions Recorded Confirmed Type Dulaglutide [Trulicity] 0.75 mg SQ TH 11/09/24 01/29/25 History dexAMETHasone [Decadron] 20 mg PO MO 11/09/24 01/29/25 History Pantoprazole [Protonix] 40 mg PO DAILY #30 tab 12/16/24 01/29/25 Rx Acetaminophen Tab [Tylenol] 650 mg PO Q6HR PRN 01/29/25 01/29/25 History Collagenase [Santyl Ointment] 1 applic TOPICAL Q2D@2100 01/29/25 01/29/25 History Escitalopram [Lexapro] 10 mg PO DAILY 01/29/25 01/29/25 History Glycerin Adult Suppository 1 supp RECTAL DAILY PRN 01/29/25 01/29/25 History INSULIN LISPRO (HumaLOG) [HumaLOG] See Protocol SQ ACHS 01/29/25 01/29/25 History Ipratropium-Albuterol Nebulize 3 ml INHALATION RT-Q4H PRN 01/29/25 01/29/25 History [Duoneb 0.5 mg-3 mg/3 ml Soln] LORazepam [Ativan] 0.5 mg PO Q8H PRN 01/29/25 01/29/25 History Levothyroxine Sodium [Synthroid] 112 mcg PO DAILY 01/29/25 01/29/25 History Magnesium Hydroxide [Milk of 2,400 mg PO DIRECTED PRN 01/29/25 01/29/25 History Magnesia] Mirtazapine 7.5 mg PO HS 01/29/25 01/29/25 History Multivitamins, Thera [Multivitamin 1 tab PO DAILY 01/29/25 01/29/25 History (formulary)] Ondansetron [Zofran] 4 mg PO Q8HR PRN 01/29/25 01/29/25 History Potassium Chloride ER [K-Dur 10] 10 meq PO BID 01/29/25 01/29/25 History Torsemide [Demadex] 20 mg PO BID 01/29/25 01/29/25 History atenoloL [Tenormin] 25 mg PO HS 01/29/25 01/29/25 History traMADol HCL 50 mg PO Q8H PRN 01/29/25 01/29/25 History Allergies Allergy/AdvReac Type Severity Reaction Status Date / Time epinephrine AdvReac Intermediate Rapid Verified 01/29/25 19:15 Heart Rate Physical Exam Vitals: Vital Signs Temp Pulse Pulse Resp BP BP BP 01/30/25 08:00 98.3 F 86 20 122/63 01/30/25 04:00 98.2 F 72 16 154/83 01/30/25 01:15 98.9 F 73 24 118/73 01/30/25 00:10 98.2 F 79 17 126/70 01/29/25 23:03 73 21 130/73 01/29/25 22:30 73 22 113/66 01/29/25 21:00 80 16 135/71 01/29/25 19:38 98.4 F 84 17 138/81 01/29/25 18:14 97.7 F 81 18 114/78 Pulse Ox 01/30/25 08:00 99 01/30/25 04:00 100 01/30/25 01:15 99 01/30/25 00:10 98 01/29/25 23:03 100 01/29/25 22:30 100 01/29/25 21:00 100 01/29/25 19:38 100 01/29/25 18:14 95 Intake and Output 01/29/25 01/30/25 01/30/25 22:59 06:59 14:59 Output Total 700 250 Balance -700 -250 Output: Urine 700 250 Other: Voiding Method External Catheter External Catheter # Bowel Movements 1 Weight 64.4 kg 64.5 kg GENERAL DESCRIPTION: Elderly female lying in bed, no distress. No tachypnea or accessory muscle of respiration use. HEENT: Shows Pallor , no scleral icterus. Oral mucous membrane is dry. NECK: Trachea central, no thyromegaly. LUNGS: Unlabored breathing. Clear to auscultation anteriorly. No wheeze or crackle. HEART: S1, S2, regular rate and rhythm. No loud murmur ABDOMEN: Soft, lower abdominal incision dehiscence which is currently packed no significant surrounding redness EXTREMITIES: No edema of feet. SKIN: No rash, no masses palpable. NEUROLOGICAL: The patient is awake, mood and affect normal. Results CBC & Chem 7: 01/31/25 06:12 01/31/25 06:12 Labs: Abnormal Lab Results - Last 24 Hours (Table) 01/29/25 01/29/25 01/29/25 Range/Units 18:57 18:57 18:57 RBC 3.29 L (4.10-5.20) 10*6/uL Hgb 9.5 L (12.0-15.0) g/dL Hct 29.9 L (37.2-46.3) % MCHC 31.8 L (32.0-37.0) g/dL Immature Gran # 0.25 H (0.00-0.04) 10*3/uL APTT 20.3 L (22.0-30.0) sec Sodium 136 L (137-145) mmol/L Chloride 96 L (98-107) mmol/L Carbon Dioxide 32 H (22-30) mmol/L BUN 33 H (7-17) mg/dL Glucose 198 H (74-99) mg/dL POC Glucose (mg/dL) (70-110) mg/dL Magnesium (1.6-2.3) mg/dL Albumin 3.3 L (3.5-5.0) g/dL Urine Appearance (Clear) Urine Protein (Negative) Urine Blood (Negative) Ur Leukocyte Esterase (Negative) Urine RBC (0-5) /hpf Urine WBC (0-5) /hpf Urine WBC Clumps (None) /hpf Urine Yeast (Budding) (None) /hpf 01/29/25 01/29/25 01/30/25 Range/Units 18:57 19:10 00:05 RBC (4.10-5.20) 10*6/uL Hgb (12.0-15.0) g/dL Hct (37.2-46.3) % MCHC (32.0-37.0) g/dL Immature Gran # (0.00-0.04) 10*3/uL APTT (22.0-30.0) sec Sodium (137-145) mmol/L Chloride (98-107) mmol/L Carbon Dioxide (22-30) mmol/L BUN (7-17) mg/dL Glucose (74-99) mg/dL POC Glucose (mg/dL) 232 H (70-110) mg/dL Magnesium 1.5 L (1.6-2.3) mg/dL Albumin (3.5-5.0) g/dL Urine Appearance Turbid H (Clear) Urine Protein 1+ H (Negative) Urine Blood Moderate H (Negative) Ur Leukocyte Esterase Large H (Negative) Urine RBC 62 H (0-5) /hpf Urine WBC >182 H (0-5) /hpf Urine WBC Clumps Few H (None) /hpf Urine Yeast (Budding) Many H (None) /hpf 01/30/25 Range/Units 06:03 RBC (4.10-5.20) 10*6/uL Hgb (12.0-15.0) g/dL Hct (37.2-46.3) % MCHC (32.0-37.0) g/dL Immature Gran # (0.00-0.04) 10*3/uL APTT (22.0-30.0) sec Sodium (137-145) mmol/L Chloride (98-107) mmol/L Carbon Dioxide (22-30) mmol/L BUN (7-17) mg/dL Glucose (74-99) mg/dL POC Glucose (mg/dL) 211 H (70-110) mg/dL Magnesium (1.6-2.3) mg/dL Albumin (3.5-5.0) g/dL Urine Appearance (Clear) Urine Protein (Negative) Urine Blood (Negative) Ur Leukocyte Esterase (Negative) Urine RBC (0-5) /hpf Urine WBC (0-5) /hpf Urine WBC Clumps (None) /hpf Urine Yeast (Budding) (None) /hpf Microbiology - Last 24 Hours (Table) 01/29/25 18:57 Gram Stain - Preliminary Abdomen Assessment and Plan (1) Abdominal abscess Current Visit: Yes Status: Acute Code(s): [id number] - SNOMED Code(s): 31139041 Plan: 1patient presented to hospital with abdominal incision dehiscence in this patient with evidence of intra-abdominal abscess she recently did have history of perforated diverticulitis with an abscess requiring colostomy and drainage of the abscess and she did have E. coli bacteremia at that point 2blood and local culture had been obtained results will be followed 3IR has been consulted for drainage of this abscess 4patient to continue with the vancomycin and Flagyl and cefepime pending finalization of the cultures Family at the bedside questions answered We will follow on clinical condition and cultures to further adjust medication if needed Thank you for this consultation we will follow the patient along with you Dictation was produced using [employer] dictation software. please excuse any grammatical, word or spelling errors.
--- NOTE | 2025-01-31 10:11 | P.PN ---
Subjective Meena was reevaluated for her incisional wound dehiscence after colostomy for diverticulitis and perforated tic. She is currently on vancomycin, cefepime, and Flagyl per infectious disease. Surgery is planning a interventional radiology consult for abscess drainage. She was positive for E. coli in the past. She is slightly confused. Her son is at bedside. We discussed the confusion that it never got any better and seem to worsen since she actually had the surgery on December 26. We discussed the possible reasons for that. He also indicated she was not doing well in rehabilitation and had a lot of edema while in rehabilitation she does have some mild nonpressure ulcers with fat layer exposed to her left leg and coccyx. Santyl is being applied to these. A healed nonpressure ulcer to the right leg. She remains on IV fluids at this time as well. Has tramadol as needed for pain pantoprazole for GI prophylaxis Remeron for sleep and mood and E citalopram for mood. Vital signs since yesterday are stable. Hemoglobin is 8.4 consistent with her ongoing anemia and multiple myeloma. Her kidney functions are normal GFR is greater than 90. Magnesium is 1.5 today. Site wound cultures positive for gram-negative bacilli at this time. Objective - Vital Signs Vital signs: Vital Signs Temp 98.4 F 01/31/25 08:29 Pulse 101 H 01/31/25 08:29 Resp 17 01/31/25 08:29 BP 124/66 01/31/25 08:29 Pulse Ox 96 01/31/25 08:29 FiO2 Intake & Output 01/30/25 01/31/25 01/31/25 18:59 06:59 18:59 Intake Total 1000 550 Output Total 250 450 Balance 750 100 Weight 64.6 kg Intake: IV 550 Cefepime 2 gm In Dextrose 100 5% in Water 100 ml @ 25 mls/hr IVPB Q12H [facility] Rx#: [id number] Vancomycin 1,250 mg In 250 Sodium Chloride 0.9% 250 ml @ 125 mls/hr IVPB Q24H [facility] Rx#:[id number] metroNIDAZOLE-NS PMX 500 200 mg In Saline 1 100ml.bag @ 100 mls/hr IVPB 0300, 1100,1900 [facility] Rx#: [id number] Intake, IV Titration 800 Amount Cefepime 2 gm In Dextrose 100 5% in Water 100 ml @ 25 mls/hr IVPB Q12H [facility] Rx#: [id number] Sodium Chloride 0.9% 1, 600 000 ml @ 75 mls/hr IV . [id number] [facility] Rx#:[id number] metroNIDAZOLE-NS PMX 500 100 mg In Saline 1 100ml.bag @ 100 mls/hr IVPB 0300, 1100,1900 [facility] Rx#: [id number] Oral 200 Output: Urine 250 450 Other: Voiding Method External Catheter External Catheter # Bowel Movements 1 - Exam GENERAL: Elderly female awake but pleasantly confused at this time. HEAD: Atraumatic, normocephalic. NECK: Normal range of motion, supple without lymphadenopathy or JVD, no thyromegaly LUNGS: Breath sounds clear to auscultation bilaterally and equal. No wheezes rales or rhonchi. HEART: Regular rate and rhythm without murmurs, rubs or gallops.S1S2 Normal ABDOMEN: Soft, minimally tender, no rebound, colostomy in place. EXTREMITIES: Normal range of motion, +1 pedal edema with bordered foam in place on both legs, there are 2 small nonpressure ulcers, the right leg is healed the left leg is with fat layer exposed. Approximately 2 cm in diameter. Coccyx and exam was deferred today. NEUROLOGICAL: Cranial nerves II through XII grossly intact. Normal speech, gait not tested, patient sleeping but arousable. PSYCH: Normal mood, normal affect. SKIN: Warm, Dry, normal turgor, no rashes or lesions noted. - Labs CBC & Chem 7: 01/31/25 06:12 01/31/25 06:12 Labs: Abnormal Lab Results - Last 24 Hours (Table) 01/30/25 01/30/25 01/30/25 Range/Units 12:04 16:44 20:04 RBC (4.10-5.20) 10*6/uL Hgb (12.0-15.0) g/dL Hct (37.2-46.3) % MCHC (32.0-37.0) g/dL Immature Gran # (0.00-0.04) 10*3/uL BUN (7-17) mg/dL Glucose (74-99) mg/dL POC Glucose (mg/dL) 174 H 174 H 208 H (70-110) mg/dL Magnesium (1.6-2.3) mg/dL Albumin (3.5-5.0) g/dL 01/31/25 01/31/25 01/31/25 Range/Units 06:01 06:12 06:12 RBC 2.92 L (4.10-5.20) 10*6/uL Hgb 8.4 L (12.0-15.0) g/dL Hct 28.2 L (37.2-46.3) % MCHC 29.8 L (32.0-37.0) g/dL Immature Gran # 0.10 H (0.00-0.04) 10*3/uL BUN 25 H (7-17) mg/dL Glucose 143 H (74-99) mg/dL POC Glucose (mg/dL) 153 H (70-110) mg/dL Magnesium 1.5 L (1.6-2.3) mg/dL Albumin 2.8 L (3.5-5.0) g/dL Microbiology - Last 24 Hours (Table) 01/29/25 18:57 Blood Culture - Preliminary Blood 01/29/25 18:57 Gram Stain - Preliminary Abdomen Wound Culture - Preliminary Gram Neg Bacilli Assessment and Plan (1) Abdominal abscess Current Visit: Yes Status: Acute Code(s): RBQ7211 - SNOMED Code(s): 46564331 (2) Colostomy status Current Visit: Yes Status: Acute Code(s): Z93.3 - COLOSTOMY STATUS SNOMED Code(s): 229488900 (3) Abdominal pain Current Visit: No Status: Acute Code(s): R10.9 - UNSPECIFIED ABDOMINAL PAIN SNOMED Code(s): 64792697 (4) Deep vein thrombosis (DVT) of lower extremity Current Visit: No Status: Acute Priority: Medium Code(s): I82.409 - ACUTE EMBOLISM AND THOMBOS UNSP DEEP VN UNSP LOWER EXTREMITY SNOMED Code(s): 369742957 (5) Dehydration Current Visit: No Status: Acute Code(s): E86.0 - DEHYDRATION SNOMED Code(s): 26508727 (6) H/O four vessel coronary artery bypass graft Current Visit: No Status: Acute Code(s): Z95.1 - PRESENCE OF AORTOCORONARY BYPASS GRAFT SNOMED Code(s): 351661381 (7) Hypertension Current Visit: No Status: Acute Code(s): I10 - ESSENTIAL (PRIMARY) HYPERTENSION SNOMED Code(s): 08927547 (8) Multiple myeloma Current Visit: No Status: Acute Code(s): C90.00 - MULTIPLE MYELOMA NOT HAVING ACHIEVED REMISSION SNOMED Code(s): 509361567 (9) Normochromic anemia Current Visit: No Status: Acute Code(s): D64.9 - ANEMIA, UNSPECIFIED SNOMED Code(s): 80004787 (10) Protein-calorie malnutrition, mild Current Visit: No Status: Acute Code(s): E44.1 - MILD PROTEIN-CALORIE MALNUTRITION SNOMED Code(s): 716717829 (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 Should be reevaluated by family medicine in 24 hours
[2025-01-31] MEDS ORDERED: Magnesium Replacement Protocol 1 EACH MISC MISCELLANE PRN (10:12)
--- NOTE | 2025-01-31 10:23 | P.PN ---
Subjective Progress Note Date: 01/31/25 Patient is resting comfortably in her bed. She has no complaints of abdominal pain. She does have some drainage from her incision. The nurses are providing local wound care. On exam vital signs appear stable. Abdomen is soft nontender. Intra-abdominal abscess. Patient will have consult for interventional radiology drainage. Objective - Vital Signs Vital signs: Vital Signs Temp 98.4 F 01/31/25 08:29 Pulse 101 H 01/31/25 08:29 Resp 17 01/31/25 08:29 BP 124/66 01/31/25 08:29 Pulse Ox 96 01/31/25 08:29 FiO2 Intake & Output 01/30/25 01/31/25 01/31/25 18:59 06:59 18:59 Intake Total 1000 550 10 Output Total 250 450 Balance 750 100 10 Weight 64.6 kg Intake: IV 550 10 Cefepime 2 gm In Dextrose 100 5% in Water 100 ml @ 25 mls/hr IVPB Q12H [facility] Rx#: [id number] Invasive Line 3 10 Vancomycin 1,250 mg In 250 Sodium Chloride 0.9% 250 ml @ 125 mls/hr IVPB Q24H [facility] Rx#:[id number] metroNIDAZOLE-NS PMX 500 200 mg In Saline 1 100ml.bag @ 100 mls/hr IVPB 0300, 1100,1900 [facility] Rx#: [id number] Intake, IV Titration 800 Amount Cefepime 2 gm In Dextrose 100 5% in Water 100 ml @ 25 mls/hr IVPB Q12H [facility] Rx#: [id number] Sodium Chloride 0.9% 1, 600 000 ml @ 75 mls/hr IV . [id number] [facility] Rx#:[id number] metroNIDAZOLE-NS PMX 500 100 mg In Saline 1 100ml.bag @ 100 mls/hr IVPB 0300, 1100,1900 [facility] Rx#: [id number] Oral 200 Output: Urine 250 450 Other: Voiding Method External Catheter External Catheter External Catheter # Bowel Movements 1 - Labs CBC & Chem 7: 01/31/25 06:12 01/31/25 06:12 Labs: Abnormal Lab Results - Last 24 Hours (Table) 01/30/25 01/30/25 01/30/25 Range/Units 12:04 16:44 20:04 RBC (4.10-5.20) 10*6/uL Hgb (12.0-15.0) g/dL Hct (37.2-46.3) % MCHC (32.0-37.0) g/dL Immature Gran # (0.00-0.04) 10*3/uL BUN (7-17) mg/dL Glucose (74-99) mg/dL POC Glucose (mg/dL) 174 H 174 H 208 H (70-110) mg/dL Magnesium (1.6-2.3) mg/dL Albumin (3.5-5.0) g/dL 01/31/25 01/31/25 01/31/25 Range/Units 06:01 06:12 06:12 RBC 2.92 L (4.10-5.20) 10*6/uL Hgb 8.4 L (12.0-15.0) g/dL Hct 28.2 L (37.2-46.3) % MCHC 29.8 L (32.0-37.0) g/dL Immature Gran # 0.10 H (0.00-0.04) 10*3/uL BUN 25 H (7-17) mg/dL Glucose 143 H (74-99) mg/dL POC Glucose (mg/dL) 153 H (70-110) mg/dL Magnesium 1.5 L (1.6-2.3) mg/dL Albumin 2.8 L (3.5-5.0) g/dL Microbiology - Last 24 Hours (Table) 01/29/25 18:57 Blood Culture - Preliminary Blood 01/29/25 18:57 Gram Stain - Preliminary Abdomen Wound Culture - Preliminary Gram Neg Bacilli
[2025-01-31] MEDS: MAGNESIUM SULFATE-D5W PMX 1 GM in DEXTROSE/WATER 1 100ML.BAG IVPB SCH (10:39)
[2025-01-31 11:43] LABS: Glucose,Whole Blood 201 mg/dL (70-110)
[2025-01-31] MEDS: COLLAGENASE 250 UNIT/GM OINTMENT 30 GM TUBE TOPICAL SCH (12:30)
--- NOTE | 2025-01-31 14:09 | CT ---
EXAMINATION TYPE: CT brain wo con DATE OF EXAM: 01/31/2025 COMPARISON: None CLINICAL INDICATION: Female, 79 years old with history of AMS; PHH, HEADACHE CT DLP: 1141.4 mGycm Automated exposure control for dose reduction was used. Findings: The ventricles, basal cisterns and sulci over the convexities moderately enlarged consistent with mod erate generalized atrophy. There is moderate to marked decreased density in the periventricular white matter consistent with marked chronic ischemic white matter demyelination. There is no mass effect o r shift of midline structures. There is no acute intra or extra-axial hemorrhage. The posterior fossa including the brainstem, fourth ventricle and cerebellar pontine angles appear no rmal. Intraorbital contents appear normal and symmetric. Visualized paranasal sinuses and mastoid air cells are well aerated. The calvarium is intact. IMPRESSION: 1. No acute bleed or mass effect. 2. Moderate atrophy and marked chronic ischemic white matter demyelination [facility], Workstation: [facility], 01/31/2025 2:06 PM
--- NOTE | 2025-01-31 15:04 | P.PN ---
Subjective Progress Note Date: 01/31/25 Principal diagnosis: Reason for follow-up is intra-abdominal abscess Patient is a 79-year-old female with a past medical history significant for coronary disease diabetes mellitus hypertension hyperlipidemia thyroid disorder in this patient who recently admitted to the hospital with perforated diverticulitis status post sigmoid colectomy and colostomy, now admitted to the hospital with intra-abdominal abscess. On today's evaluation that is 01/31/2025, Patient is afebrile patient is currently on room air and denies having any shortness of breath, the patient denies any chest pain or cough, the patient denies any nausea vomiting abdominal pain is currently controlled did have output in colostomy. Patient white count 7.33 creatinine 0.73 abdominal culture growing gram-negative bacilli Objective - Vital Signs Vital signs: Vital Signs Temp 98.3 F 01/31/25 11:20 Pulse 91 01/31/25 11:20 Resp 17 01/31/25 11:20 BP 131/75 01/31/25 11:20 Pulse Ox 98 01/31/25 11:20 FiO2 Intake & Output 01/30/25 01/31/25 01/31/25 18:59 06:59 18:59 Intake Total 1000 550 120 Output Total 250 450 Balance 750 100 120 Weight 64.6 kg Intake: IV 550 20 Cefepime 2 gm In Dextrose 100 5% in Water 100 ml @ 25 mls/hr IVPB Q12H [facility] Rx#: [id number] Invasive Line 2 20 Vancomycin 1,250 mg In 250 Sodium Chloride 0.9% 250 ml @ 125 mls/hr IVPB Q24H [facility] Rx#:[id number] metroNIDAZOLE-NS PMX 500 200 mg In Saline 1 100ml.bag @ 100 mls/hr IVPB 0300, 1100,1900 [facility] Rx#: [id number] Intake, IV Titration 800 Amount Cefepime 2 gm In Dextrose 100 5% in Water 100 ml @ 25 mls/hr IVPB Q12H [facility] Rx#: [id number] Sodium Chloride 0.9% 1, 600 000 ml @ 75 mls/hr IV . [id number] [facility] Rx#:[id number] metroNIDAZOLE-NS PMX 500 100 mg In Saline 1 100ml.bag @ 100 mls/hr IVPB 0300, 1100,1900 [facility] Rx#: [id number] Oral 200 100 Output: Urine 250 450 Other: Voiding Method External Catheter External Catheter External Catheter # Bowel Movements 1 - Exam GENERAL DESCRIPTION: An elderly female lying in bed in no distress RESPIRATORY SYSTEM: Unlabored breathing , decreased breath sounds at bases HEART: S1 S2 regular rate and rhythm , ABDOMEN: Soft , no tenderness EXTREMITIES: No edema feet - Labs CBC & Chem 7: 01/31/25 06:12 01/31/25 06:12 Labs: Abnormal Lab Results - Last 24 Hours (Table) 01/30/25 01/30/25 01/31/25 Range/Units 16:44 20:04 06:01 RBC (4.10-5.20) 10*6/uL Hgb (12.0-15.0) g/dL Hct (37.2-46.3) % MCHC (32.0-37.0) g/dL Immature Gran # (0.00-0.04) 10*3/uL BUN (7-17) mg/dL Glucose (74-99) mg/dL POC Glucose (mg/dL) 174 H 208 H 153 H (70-110) mg/dL Magnesium (1.6-2.3) mg/dL Albumin (3.5-5.0) g/dL 01/31/25 01/31/25 01/31/25 Range/Units 06:12 06:12 11:31 RBC 2.92 L (4.10-5.20) 10*6/uL Hgb 8.4 L (12.0-15.0) g/dL Hct 28.2 L (37.2-46.3) % MCHC 29.8 L (32.0-37.0) g/dL Immature Gran # 0.10 H (0.00-0.04) 10*3/uL BUN 25 H (7-17) mg/dL Glucose 143 H (74-99) mg/dL POC Glucose (mg/dL) 201 H (70-110) mg/dL Magnesium 1.5 L (1.6-2.3) mg/dL Albumin 2.8 L (3.5-5.0) g/dL Microbiology - Last 24 Hours (Table) 01/29/25 18:57 Blood Culture - Preliminary Blood 01/29/25 18:57 Gram Stain - Preliminary Abdomen Wound Culture - Preliminary Gram Neg Bacilli Assessment and Plan (1) Abdominal abscess Current Visit: Yes Status: Acute Code(s): [id number] - SNOMED Code(s): 32059023 Plan: 1patient presented to hospital with abdominal incision dehiscence in this patient with evidence of intra-abdominal abscess she recently did have history of perforated diverticulitis with an abscess requiring colostomy and drainage of the abscess and she did have E. coli bacteremia on her last admission 2blood cultures currently pending local culture growing gram-negative bacilli 3IR has been consulted for drainage of this abscess hopefully will be done tomorrow 4patient currently being treated with cefepime vancomycin and Flagyl pending finalization of the cultures Dictation was produced using [employer] dictation software. please excuse any grammatical, word or spelling errors. Time with Patient: Less than 30
[2025-01-31 17:07] LABS: Glucose,Whole Blood 176 mg/dL (70-110)
[2025-01-31 20:07] LABS: Glucose,Whole Blood 186 mg/dL (70-110)
--- NOTE | 2025-01-31 22:44 | P.CNNES ---
History of Present Illness Consult date: 01/31/25 Requesting physician: Mark Park Reason for Consult: neurological changes since s History of Present Illness: Patient is a 79-year-old female came to the hospital by ambulance on 01/29/2025 at 6 PM for altered mental status. EMS flowsheet not available in the chart. Patient not able to provide any history. I spoke to patient's nurse, who mentioned that patient was recently admitted to the hospital from 12/27/2024 and discharged on 01/06/2025. Patient's diagnosis 1 sepsis, septic shock secondary to pneumoperitoneum, intra-abdominal abscess with sigmoid diverticulitis, bacteremia, perforated diverticulum status post sigmoid colectomy, drainage of interleukin abscess, proximal laminectomy on 12/26/2024, type 2 diabetes, CAD DVT, CAD, hypertension and multiple myeloma. Patient was apparently alert and oriented 3 until 01/03/2025, when she started having some mental status change. Even at the time of discharge on 01/06/2025, patient's mentation was not completely normal. However since discharge, she has been progressively going downhill. Therefore she was brought back to the hospital. Patient at present denies any headache, or dizziness. Patient has been seen by surgery for intra- abdominal abscess. They have consulted IR for drainage of the abscess, hopefully which will be done tomorrow. Patient is currently being treated with cefepime, vancomycin and Flagyl. ID is following. Vital signs on arrival blood pressure 114/78 pulse rate 81 temperature 97.7. Patient has been afebrile. Blood test shows normal CBC with slightly decreased hemoglobin 8.4. Electrolytes are normal. Hepatic panel normal. UA shows large amount of leukocyte Estrace, 62 RBC and more than 182 WBC. Blood cultures so far negative. 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, cancer back History of Any Multi-Drug Resistant Organisms: None Reported Past Surgical History: Section, Orthopedic Surgery Additional Past Surgical History / Comment(s): Left knee replacement, bypass, sigmoidectomy with colostomy placement on 12.28.24 r/t perforated diverticulitus Past Anesthesia/Blood Transfusion Reactions: Unable to Obtain Past Psychological History: No Psychological Hx Reported Smoking Status: Never smoker Past Alcohol Use History: None Reported Past Drug Use History: None Reported - Past Family History Father Family Medical History: Myocardial Infarction ([place]) Additional Family Medical History / Comment(s): at 70 years old from myocardial infarction-suspected. Mother Additional Family Medical History / Comment(s): from "enlarged heart" at 87 years old Brother(s) Family Medical History: Coronary Artery Disease (CAD) Additional Family Medical History / Comment(s): Multiple stents placed Son(s) Family Medical History: CVA/TIA Additional Family Medical History / Comment(s): from stroke at 41 years old Medications and Allergies Home Medications Medication Instructions Recorded Confirmed Type Dulaglutide [Trulicity] 0.75 mg SQ TH 11/09/24 01/29/25 History dexAMETHasone [Decadron] 20 mg PO MO 11/09/24 01/29/25 History Pantoprazole [Protonix] 40 mg PO DAILY #30 tab 12/16/24 01/29/25 Rx Acetaminophen Tab [Tylenol] 650 mg PO Q6HR PRN 01/29/25 01/29/25 History Collagenase [Santyl Ointment] 1 applic TOPICAL Q2D@2100 01/29/25 01/29/25 History Escitalopram [Lexapro] 10 mg PO DAILY 01/29/25 01/29/25 History Glycerin Adult Suppository 1 supp RECTAL DAILY PRN 01/29/25 01/29/25 History INSULIN LISPRO (HumaLOG) [HumaLOG] See Protocol SQ ACHS 01/29/25 01/29/25 History Ipratropium-Albuterol Nebulize 3 ml INHALATION RT-Q4H PRN 01/29/25 01/29/25 History [Duoneb 0.5 mg-3 mg/3 ml Soln] LORazepam [Ativan] 0.5 mg PO Q8H PRN 01/29/25 01/29/25 History Levothyroxine Sodium [Synthroid] 112 mcg PO DAILY 01/29/25 01/29/25 History Magnesium Hydroxide [Milk of 2,400 mg PO DIRECTED PRN 01/29/25 01/29/25 History Magnesia] Mirtazapine 7.5 mg PO HS 01/29/25 01/29/25 History Multivitamins, Thera [Multivitamin 1 tab PO DAILY 01/29/25 01/29/25 History (formulary)] Ondansetron [Zofran] 4 mg PO Q8HR PRN 01/29/25 01/29/25 History Potassium Chloride ER [K-Dur 10] 10 meq PO BID 01/29/25 01/29/25 History Torsemide [Demadex] 20 mg PO BID 01/29/25 01/29/25 History atenoloL [Tenormin] 25 mg PO HS 01/29/25 01/29/25 History traMADol HCL 50 mg PO Q8H PRN 01/29/25 01/29/25 History Allergies Allergy/AdvReac Type Severity Reaction Status Date / Time epinephrine AdvReac Intermediate Rapid Verified 01/29/25 19:15 Heart Rate Physical Examination - Vital Signs Vital Signs: Vital Signs Temp Pulse Resp BP Pulse Ox 01/31/25 11:20 98.3 F 91 17 131/75 98 01/31/25 08:29 98.4 F 101 H 17 124/66 96 01/31/25 03:21 98 F 71 15 134/81 01/30/25 23:23 98.2 F 89 15 127/72 95 01/30/25 20:00 98.3 F 104 H 16 140/65 97 01/30/25 16:29 98.5 F 104 H 20 116/63 99 Intake and Output 01/30/25 01/31/25 01/31/25 22:59 06:59 14:59 Intake Total 1000 550 10 Output Total 250 200 Balance 750 350 10 Intake: IV 550 10 Cefepime 2 gm In Dextrose 100 5% in Water 100 ml @ 25 mls/hr IVPB Q12H [facility] Rx#: [id number] Invasive Line 2 10 Vancomycin 1,250 mg In 250 Sodium Chloride 0.9% 250 ml @ 125 mls/hr IVPB Q24H [facility] Rx#:[id number] metroNIDAZOLE-NS PMX 500 200 mg In Saline 1 100ml.bag @ 100 mls/hr IVPB 0300, 1100,1900 [facility] Rx#: [id number] Intake, IV Titration 800 Amount Cefepime 2 gm In Dextrose 100 5% in Water 100 ml @ 25 mls/hr IVPB Q12H [facility] Rx#: [id number] Sodium Chloride 0.9% 1, 600 000 ml @ 75 mls/hr IV . [id number] [facility] Rx#:[id number] metroNIDAZOLE-NS PMX 500 100 mg In Saline 1 100ml.bag @ 100 mls/hr IVPB 0300, 1100,1900 [facility] Rx#: [id number] Oral 200 Output: Urine 250 200 Other: Voiding Method External Catheter External Catheter External Catheter Weight 64.6 kg Patient is an elderly female, who appears obviously encephalopathic, very spacey, but no acute distress. She appears somewhat pale. Patient is alert awake, but not oriented. patient knows her date of 1945, but believes that she is 87 years old. Then she said she is 89 years old. The current year is 1944. She could not tell the city or state. Does not know name of the current president. Patient can name simple objects like a ear, but not the ear lobe. Likewise she can name fingers but not the knuckles. She can repeat very well. No aphasia or dysarthria. Attention, concentration and fund of knowledge are all very impaired. On cranial nerve examination, pupils are equal, round and reacting to light, visual summers could not be tested reliably. On checking for visual summers, she would just point to the Center towards the examiner, but not to the sides. She would not follow directions well. Extraocular muscles are intact with no nystagmus. Face is symmetric, tongue protrudes to the midline. Palatal elevation and sensation normal, hearing and shoulder shrug normal, facial sensation normal. On muscle strength testing, there is no pronator drift. The examination was somewhat inconsistent because of lack of cooperation and mental status. The strength is about 4+ in the biceps, triceps and the transmission assembler. Deltoid is 4-on the right, 4+ left. The lower limbs are normal then 3-3+. She has weakness of the ankles and the hips. Deep tendon reflexes are symmetric (right/left) Sensory to touch is equal with no neglect on double simultaneous stimulation. Cerebellar function showed no ataxia for [id number] testing. No dysdiadochokinesia. No ataxia for [id number] testing on either side. Tone and bulk of muscles normal. Gait deferred.. On general examination, there is no carotid bruit or murmur, S1-S2 audible. Chest is clear on consultation. Abdomen is soft nontender. No organomegaly, bowel sounds present. patient has severe peripheral edema. Some bruises were present and ecchymosis. Results - Laboratory Findings CBC and BMP: 01/31/25 06:12 01/31/25 06:12 Abnormal Lab Findings: Abnormal Labs 01/29/25 01/29/25 01/29/25 18:57 18:57 18:57 RBC 3.29 L Hgb 9.5 L Hct 29.9 L MCHC 31.8 L Immature Gran # 0.25 H APTT 20.3 L Sodium 136 L Chloride 96 L Carbon Dioxide 32 H BUN 33 H Glucose 198 H POC Glucose (mg/dL) Magnesium Albumin 3.3 L Urine Appearance Urine Protein Urine Blood Ur Leukocyte Esterase Urine RBC Urine WBC Urine WBC Clumps Urine Yeast (Budding) 01/29/25 01/29/25 01/30/25 18:57 19:10 00:05 RBC Hgb Hct MCHC Immature Gran # APTT Sodium Chloride Carbon Dioxide BUN Glucose POC Glucose (mg/dL) 232 H Magnesium 1.5 L Albumin Urine Appearance Turbid H Urine Protein 1+ H Urine Blood Moderate H Ur Leukocyte Esterase Large H Urine RBC 62 H Urine WBC >182 H Urine WBC Clumps Few H Urine Yeast (Budding) Many H 01/30/25 01/30/25 01/30/25 06:03 12:04 16:44 RBC Hgb Hct MCHC Immature Gran # APTT Sodium Chloride Carbon Dioxide BUN Glucose POC Glucose (mg/dL) 211 H 174 H 174 H Magnesium Albumin Urine Appearance Urine Protein Urine Blood Ur Leukocyte Esterase Urine RBC Urine WBC Urine WBC Clumps Urine Yeast (Budding) 01/30/25 01/31/25 01/31/25 20:04 06:01 06:12 RBC Hgb Hct MCHC Immature Gran # APTT Sodium Chloride Carbon Dioxide BUN 25 H Glucose 143 H POC Glucose (mg/dL) 208 H 153 H Magnesium 1.5 L Albumin 2.8 L Urine Appearance Urine Protein Urine Blood Ur Leukocyte Esterase Urine RBC Urine WBC Urine WBC Clumps Urine Yeast (Budding) 01/31/25 01/31/25 06:12 11:31 RBC 2.92 L Hgb 8.4 L Hct 28.2 L MCHC 29.8 L Immature Gran # 0.10 H APTT Sodium Chloride Carbon Dioxide BUN Glucose POC Glucose (mg/dL) 201 H Magnesium Albumin Urine Appearance Urine Protein Urine Blood Ur Leukocyte Esterase Urine RBC Urine WBC Urine WBC Clumps Urine Yeast (Budding) Assessment and Plan Assessment: * Altered mental status, likely due to toxic metabolic encephalopathy. * Abdominal abscess * Abdominal incision wound dehiscence. * Recent history of diverticulitis, with peritonitis, abdominal abscess, status post sigmoid colectomy. * Coronary artery disease * Hypertension * Multiple myeloma * Anemia * Diabetes * Peripheral edema Plan: * CT head was performed today, which revealed no acute process. Moderate atrophy and mild chronic ischemic white matter demyelination. I personally reviewed CT head, agree with the findings. * EEG, evaluate for encephalopathy, rule out partial status, rule out cephalosporin toxicity. * Patient undergoing IR guided drainage of abdominal abscess. * ID also following. * Other medical management as per IM and other specialties on board. * Dr. Brett Richards to start neurology service from the morning. * Thank you for the consult.
[2025-02-01 06:04] LABS: Glucose,Whole Blood 181 mg/dL (70-110)
[2025-02-01 07:16] LABS: African American GFR (CKD) 89 (>60 ml/min/1.73 sqM); Anion Gap 8 mmol/L; Blood Urea Nitrogen 22 mg/dL (7-17); Calcium 8.4 mg/dL (8.4-10.2); Carbon Dioxide 30 mmol/L (22-30); Chloride 98 mmol/L (98-107); Glucose 160 mg/dL (74-99); Magnesium 1.9 mg/dL (1.6-2.3); Non-African American GFR(CKD) 77 (>60 ml/min/1.73 sqM); Potassium 2.9 mmol/L (3.5-5.1); Sodium 136 mmol/L (137-145)
[2025-02-01] MEDS: dexAMETHasone 4 MG TAB PO SCH (08:38)
--- NOTE | 2025-02-01 11:05 | P.PN ---
Subjective Progress Note Date: 02/01/25 SURGICAL PROGRESS NOTE CHIEF COMPLAINT: Intra-abdominal abscess HISTORY OF PRESENT ILLNESS: Patient lying in bed comfortably. Denies any abdominal pain. Scheduled for IR evaluation for possible drain placement today. Patient had EEG completed today. Afebrile. WBC 7.33 k 2.9 mg 1.9 PHYSICAL EXAM: VITAL SIGNS: Reviewed. GENERAL: Well-developed in no acute distress. ABDOMEN: Soft. Nondistended. Nontender. Midline incision with packing at distal incision with purulent drainage noted. Ostomy with stool present NEUROLOGIC: Awake and alert ASSESSMENT: 1. Intra-abdominal abscess 2. History of diverticulitis with perforation and abscess status post sigmoid colectomy with colostomy on 12/26/2024 3. Hypokalemia PLAN: - Patient scheduled to be evaluated by IR service for possible drain placement for abdominal abscess - Antibiotics per ID service - Replace potassium Physician Roll Scale Man note has been reviewed by physician. Signing provider agrees with the documented findings, assessment, and plan of care. Objective - Vital Signs Vital signs: Vital Signs Temp 98.3 F 02/01/25 08:36 Pulse 76 02/01/25 08:36 Resp 17 02/01/25 08:36 BP 120/62 02/01/25 08:36 Pulse Ox 96 02/01/25 08:36 FiO2 Intake & Output 01/31/25 02/01/25 02/01/25 18:59 06:59 18:59 Intake Total 120 10 10 Output Total 300 850 325 Balance -180 -840 -315 Weight 63.5 kg Intake: IV 20 10 10 Invasive Line 2 20 10 10 Oral 100 Output: Urine 300 850 325 Other: Voiding Method External Catheter External Catheter External Catheter - Labs CBC & Chem 7: 01/31/25 06:12 02/01/25 05:42 Labs: Abnormal Lab Results - Last 24 Hours (Table) 01/31/25 01/31/25 01/31/25 Range/Units 11:31 16:57 20:04 Sodium (137-145) mmol/L Potassium (3.5-5.1) mmol/L BUN (7-17) mg/dL Glucose (74-99) mg/dL POC Glucose (mg/dL) 201 H 176 H 186 H (70-110) mg/dL 02/01/25 02/01/25 Range/Units 05:42 06:03 Sodium 136 L (137-145) mmol/L Potassium 2.9 L (3.5-5.1) mmol/L BUN 22 H (7-17) mg/dL Glucose 160 H (74-99) mg/dL POC Glucose (mg/dL) 181 H (70-110) mg/dL Microbiology - Last 24 Hours (Table) 01/29/25 18:57 Blood Culture - Preliminary Blood 01/29/25 18:57 Gram Stain - Preliminary Abdomen Wound Culture - Final Escherichia coli
[2025-02-01 12:00] LABS: Glucose,Whole Blood 195 mg/dL (70-110)
[2025-02-01] MEDS: POTASSIUM CHLORIDE ER 20 MEQ TAB.ER PO SCH (12:17)
[2025-02-01 13:44] VITALS: BMI 24.7
--- NOTE | 2025-02-01 14:34 | P.PN ---
Subjective Meena was reevaluated for her incisional wound dehiscence after colostomy for diverticulitis and perforated tic. She is currently on vancomycin, cefepime, and Flagyl per infectious disease. Surgery is planning a interventional radiology consult for abscess drainage. She was positive for E. coli in the past. She is slightly confused. Her son is at bedside. We discussed the confusion that it never got any better and seem to worsen since she actually had the surgery on December 26. We discussed the possible reasons for that. He also indicated she was not doing well in rehabilitation and had a lot of edema while in rehabilitation she does have some mild nonpressure ulcers with fat layer exposed to her left leg and coccyx. Santyl is being applied to these. A healed nonpressure ulcer to the right leg. She remains on IV fluids at this time as well. Has tramadol as needed for pain pantoprazole for GI prophylaxis Remeron for sleep and mood and E citalopram for mood. Vital signs since yesterday are stable. Hemoglobin is 8.4 consistent with her ongoing anemia and multiple myeloma. Her kidney functions are normal GFR is greater than 90. Magnesium is 1.5 today. Site wound cultures positive for gram-negative bacilli at this time. February 01 2025: Patient remains in the hospital. She continues to be somewhat confused. There is no interventional radiology available this week at all. I discussed the case with Dr. Rodriges and he suggested to transfer to [facility] that we will have a interventional radiologist on . Patient remained stable. She is afebrile. She is hypokalemic and surgery is ordered a potassium supplementation. She appears a bit dehydrated with a BUN of 22 and a creatinine 0.75 today. Her GFR is 77. Calcium magnesium are normal. Wound cultures are resulted as E. coli susceptibilities noted. Infectious diseases following. She remains on cefepime, and vancomycin. Objective - Vital Signs Vital signs: Vital Signs Temp 98.3 F 02/01/25 12:00 Pulse 71 02/01/25 12:00 Resp 18 02/01/25 12:00 BP 121/63 02/01/25 12:00 Pulse Ox 96 02/01/25 12:00 FiO2 Intake & Output 01/31/25 02/01/25 02/01/25 18:59 06:59 18:59 Intake Total 120 10 10 Output Total 300 850 325 Balance -180 -840 -315 Weight 63.5 kg 63.5 kg Intake: IV 20 10 10 Invasive Line 2 20 10 10 Oral 100 Output: Urine 300 850 325 Other: Voiding Method External Catheter External Catheter External Catheter - Exam GENERAL: Elderly female awake but pleasantly confused at this time. HEAD: Atraumatic, normocephalic. NECK: Normal range of motion, supple without lymphadenopathy or JVD, no thyromegaly LUNGS: Breath sounds clear to auscultation bilaterally and equal. No wheezes rales or rhonchi. HEART: Regular rate and rhythm without murmurs, rubs or gallops.S1S2 Normal ABDOMEN: Soft, minimally tender, no rebound, colostomy in place. EXTREMITIES: Normal range of motion, +1 pedal edema with bordered foam in place on both legs, there are 2 small nonpressure ulcers, the right leg is healed the left leg is with fat layer exposed. Approximately 2 cm in diameter. Coccyx and exam was deferred today. NEUROLOGICAL: Cranial nerves II through XII grossly intact. Normal speech, gait not tested, patient sleeping but arousable. PSYCH: Normal mood, normal affect. SKIN: Warm, Dry, normal turgor, no rashes or lesions noted. - Labs CBC & Chem 7: 01/31/25 06:12 02/01/25 05:42 Labs: Abnormal Lab Results - Last 24 Hours (Table) 01/31/25 01/31/25 02/01/25 Range/Units 16:57 20:04 05:42 Sodium 136 L (137-145) mmol/L Potassium 2.9 L (3.5-5.1) mmol/L BUN 22 H (7-17) mg/dL Glucose 160 H (74-99) mg/dL POC Glucose (mg/dL) 176 H 186 H (70-110) mg/dL 02/01/25 02/01/25 Range/Units 06:03 11:58 Sodium (137-145) mmol/L Potassium (3.5-5.1) mmol/L BUN (7-17) mg/dL Glucose (74-99) mg/dL POC Glucose (mg/dL) 181 H 195 H (70-110) mg/dL Microbiology - Last 24 Hours (Table) 01/29/25 18:57 Blood Culture - Preliminary Blood 01/29/25 18:57 Gram Stain - Preliminary Abdomen Wound Culture - Final Escherichia coli Assessment and Plan (1) Abdominal abscess Current Visit: Yes Status: Acute Code(s): ROH5689 - SNOMED Code(s): 85588254 (2) Colostomy status Current Visit: Yes Status: Acute Code(s): Z93.3 - COLOSTOMY STATUS SNOMED Code(s): 505288825 (3) Abdominal pain Current Visit: No Status: Acute Code(s): R10.9 - UNSPECIFIED ABDOMINAL PAIN SNOMED Code(s): 06674027 (4) Deep vein thrombosis (DVT) of lower extremity Current Visit: No Status: Acute Priority: Medium Code(s): I82.409 - ACUTE EMBOLISM AND THOMBOS UNSP DEEP VN UNSP LOWER EXTREMITY SNOMED Code(s): 936180426 (5) Dehydration Current Visit: No Status: Acute Code(s): E86.0 - DEHYDRATION SNOMED Code(s): 95385164 (6) H/O four vessel coronary artery bypass graft Current Visit: No Status: Acute Code(s): Z95.1 - PRESENCE OF AORTOCORONARY BYPASS GRAFT SNOMED Code(s): 076153008 (7) Hypertension Current Visit: No Status: Acute Code(s): I10 - ESSENTIAL (PRIMARY) HYPERTENSION SNOMED Code(s): 75511046 (8) Multiple myeloma Current Visit: No Status: Acute Code(s): C90.00 - MULTIPLE MYELOMA NOT HAVING ACHIEVED REMISSION SNOMED Code(s): 061305464 (9) Normochromic anemia Current Visit: No Status: Acute Code(s): D64.9 - ANEMIA, UNSPECIFIED SNOMED Code(s): 13834041 (10) Protein-calorie malnutrition, mild Current Visit: No Status: Acute Code(s): E44.1 - MILD PROTEIN-CALORIE MALNUTRITION SNOMED Code(s): 189654341 (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 [facility] likely [facility] as this may be the simplest solution. Will wait on discharge planning's availability. She will continue on her current medications and consult recommendations. I will reevaluate the next 24 hours
--- NOTE | 2025-02-01 15:30 | P.PN ---
Subjective Progress Note Date: 02/01/25 I am seeing the patient for the first time during this hospital admission. Please refer to Dr. Damon's note for further details. Patient has altered mental status and was felt due to toxic metabolic encepha lopathy. She is having a lot of abdominal issues. Objective - Vital Signs Vital signs: Vital Signs Temp 98.3 F 02/01/25 12:00 Pulse 71 02/01/25 12:00 Resp 18 02/01/25 12:00 BP 121/63 02/01/25 12:00 Pulse Ox 96 02/01/25 12:00 FiO2 Intake & Output 01/31/25 02/01/25 02/01/25 18:59 06:59 18:59 Intake Total 120 10 20 Output Total 300 850 775 Balance -180 -840 -755 Weight 63.5 kg 63.5 kg Intake: IV 20 10 20 Invasive Line 2 20 10 20 Oral 100 Output: Urine 300 850 775 Other: Voiding Method External Catheter External Catheter External Catheter - Exam General: Lying in bed and is not in acute distress. Neuro: Very limited because of cooperation. Patient is mildly drowsy but is awake able to voice. She is oriented to self. Upon notifying her that she is in the hospital she said she wants to leave. No facial weakness. No dysarthria - Labs CBC & Chem 7: 01/31/25 06:12 02/01/25 05:42 Labs: Abnormal Lab Results - Last 24 Hours (Table) 01/31/25 01/31/25 02/01/25 Range/Units 16:57 20:04 05:42 Sodium 136 L (137-145) mmol/L Potassium 2.9 L (3.5-5.1) mmol/L BUN 22 H (7-17) mg/dL Glucose 160 H (74-99) mg/dL POC Glucose (mg/dL) 176 H 186 H (70-110) mg/dL 02/01/25 02/01/25 Range/Units 06:03 11:58 Sodium (137-145) mmol/L Potassium (3.5-5.1) mmol/L BUN (7-17) mg/dL Glucose (74-99) mg/dL POC Glucose (mg/dL) 181 H 195 H (70-110) mg/dL Microbiology - Last 24 Hours (Table) 01/29/25 18:57 Blood Culture - Preliminary Blood 01/29/25 18:57 Gram Stain - Preliminary Abdomen Wound Culture - Final Escherichia coli Assessment and Plan Assessment: * Altered mental status, likely due to toxic metabolic encephalopathy. * Abdominal abscess * Abdominal incision wound dehiscence. * Recent history of diverticulitis, with peritonitis, abdominal abscess, status post sigmoid colectomy. * Coronary artery disease * Hypertension * Multiple myeloma * Anemia * Diabetes * Peripheral edema Plan: * CT head was performed today, which revealed no acute process. Moderate atrophy and mild chronic ischemic white matter demyelination. I personally reviewed CT head, agree with the findings. * EEG: Preliminary is negative for seizure * Patient undergoing IR guided drainage of abdominal abscess. * ID also following. * Other medical management as per IM and other specialties on board. The plan is discussed with her nurse. Will follow-up patient sporadically. Time with Patient: Less than 30
[2025-02-01 17:07] LABS: Glucose,Whole Blood 526 mg/dL (70-110)
[2025-02-01 17:07] LABS: Glucose,Whole Blood 270 mg/dL (70-110)
[2025-02-01 19:45] LABS: Glucose,Whole Blood 313 mg/dL (70-110)
--- NOTE | 2025-02-01 21:49 | EEG ---
ELECTROENCEPHALOGRAM REPORT CLINICAL HISTORY: This is a 79-year-old woman with altered mental status. The video EEG is obtained to evaluate for seizure epileptiform activity. RELEVANT MEDICATION: The patient is not on any antiseizure medication. EEG TYPE: This is a routine 21-channel EEG with video using the 10/20 electrode placement system. DESCRIPTION: The background consists of [id number] voltage of 9 to 10 hertz activity intermixed with delta activity. There was no physiological stage 2 sleep architecture. There is no focal slowing. There was no physiological stage 2 sleep architecture. There is no focal slowing. There is mild to moderate artifact over the bilateral frontal region. Interictal and ictal is none. ACTIVATION PROCEDURE: Photic stimulation did not evoke a posterior driving response. There is no abnormality during the photic stimulation. Hyperventilation is not performed. CLINICAL INTERPRETATION: This is an abnormal routine EEG. The background slowing is suggestive of mild to moderate encephalopathy likely due to toxic metabolic derangement. Otherwise, there is no focal slowing, epileptiform discharge, or seizure on the EEG. The lack of epileptiform discharges does not rule out underlying epilepsy. Clinical correlation is recommended. MMODL / IJN: [id number] /
[2025-02-02 01:07] LABS: African American GFR (CKD) 76 (>60 ml/min/1.73 sqM); Non-African American GFR(CKD) 66 (>60 ml/min/1.73 sqM)
[2025-02-02] MEDS: VANCOMYCIN TROUGH DUE 1 EACH MISC MISCELLANE ONE (01:12)
[2025-02-02 06:28] LABS: Glucose,Whole Blood 232 mg/dL (70-110)
[2025-02-02 08:22] LABS: African American GFR (CKD) 72 (>60 ml/min/1.73 sqM); Anion Gap 13 mmol/L; Blood Urea Nitrogen 30 mg/dL (7-17); Calcium 9.3 mg/dL (8.4-10.2); Carbon Dioxide 27 mmol/L (22-30); Chloride 99 mmol/L (98-107); Glucose 200 mg/dL (74-99); Non-African American GFR(CKD) 62 (>60 ml/min/1.73 sqM); Potassium 4.1 mmol/L (3.5-5.1); Sodium 139 mmol/L (137-145)
[2025-02-02 08:41] LABS: Basophils # (A) 0.03 10*3/uL (0.00-0.10); Basophils % (A) 0.3 %; HCT 27.8 % (37.2-46.3); HGB 8.7 g/dL (12.0-15.0); Lymphocytes # (A) 1.02 10*3/uL (0.90-5.00); Lymphocytes % (A) 10.9 %; MCH 28.8 pg (27.0-32.0); MCHC 31.3 g/dL (32.0-37.0); MCV 92.1 fL (80.0-97.0); Mean Platelet Volume 10.9 fL (9.5-12.2); Monocytes # (A) 0.28 10*3/uL (0.20-1.00); Neutrophils # (A) 7.89 10*3/uL (1.80-7.70); Neutrophils % (A) 83.9 %; Platelet Count 258 10*3/uL (140-440); RBC 3.02 10*6/uL (4.10-5.20)
--- NOTE | 2025-02-02 09:53 | P.DS ---
Providers Date of admission: 01/29/25 23:15 Expected date of discharge: 02/02/25 Attending physician: Jarett Gomez Consults: 01/29/25 23:12 Consult Physician Routine Consulting Provider: Eliezer Rodriges Consult Reason/Comments: Your surgical patient. Possible surgical wound infection. Do you want consulting provider notified?: Yes 01/30/25 10:34 Consult Physician Routine Consulting Provider: Juan Franklin Consult Reason/Comments: Intra-abdominal abscess Do you want consulting provider notified?: Yes 01/31/25 09:51 Consult Physician Routine Consulting Provider: Agueda Damon Consult Reason/Comments: neurological changes since sx Do you want consulting provider notified?: Yes Primary care physician: [facility] Course: Final Diagnoses: (1) Abdominal abscess Current Visit: Yes Status: Acute Code(s): EGQ6937 - SNOMED Code(s): 62696830 (2) Colostomy status Current Visit: Yes Status: Acute Code(s): Z93.3 - COLOSTOMY STATUS SNOMED Code(s): 216426675 (3) Abdominal pain Current Visit: No Status: Acute Code(s): R10.9 - UNSPECIFIED ABDOMINAL PAIN SNOMED Code(s): 05079948 (4) Deep vein thrombosis (DVT) of lower extremity Current Visit: No Status: Acute Priority: Medium Code(s): I82.409 - ACUTE EMBOLISM AND THOMBOS UNSP DEEP VN UNSP LOWER EXTREMITY SNOMED Code(s): 349027804 (5) Dehydration Current Visit: No Status: Acute Code(s): E86.0 - DEHYDRATION SNOMED Code(s): 13354527 (6) H/O four vessel coronary artery bypass graft Current Visit: No Status: Acute Code(s): Z95.1 - PRESENCE OF AORTOCORONARY BYPASS GRAFT SNOMED Code(s): 930421449 (7) Hypertension Current Visit: No Status: Acute Code(s): I10 - ESSENTIAL (PRIMARY) HYPERTENSION SNOMED Code(s): 60625833 (8) Multiple myeloma Current Visit: No Status: Acute Code(s): C90.00 - MULTIPLE MYELOMA NOT COY VING ACHIEVED REMISSION SNOMED Code(s): 515218468 (9) Normochromic anemia Current Visit: No Status: Acute Code(s): D64.9 - ANEMIA, UNSPECIFIED SNOMED Code(s): 56656335 (10) Protein-calorie malnutrition, mild Current Visit: No Status: Acute Code(s): E44.1 - MILD PROTEIN-CALORIE MALNUTRITION SNOMED Code(s): 638453377 (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 She is currently on vancomycin, cefepime, and Flagyl per infectious disease. Surgery is planning a interventional radiology consult for abscess drainage. She was positive for E. coli in the past. She is slightly confused. Her son is at bedside. We discussed the confusion that it never got any better and seem to worsen since she actually had the surgery on December 26. We discussed the possible reasons for that. He also indicated she was not doing well in rehabilitation and had a lot of edema while in rehabilitation she does have some mild nonpressure ulcers with fat layer exposed to her left leg and coccyx. Santyl is being applied to these. A healed nonpressure ulcer to the right leg. She remains on IV fluids at this time as well. Has tramadol as needed for pain pantoprazole for GI prophylaxis Remeron for sleep and mood and E citalopram for mood. Vital signs since yesterday are stable. Hemoglobin is 8.4 consistent with her ongoing anemia and multiple myeloma. Her kidney functions are normal GFR is greater than 90. Magnesium is 1.5 today. Site wound cultures positive for gram-negative bacilli at this time. February 01 2025: Patient remains in the hospital. She continues to be somewhat confused. There is no interventional radiology available this week at all. I discussed the case with Dr. Rodriges and he suggested to transfer to [facility] that we will have a interventional radiologist on . Patient remained stable. She is afebrile. She is hypokalemic and surgery is ordered a potassium supplementation. She appears a bit dehydrated with a BUN of 22 and a creatinine 0.75 today. Her GFR is 77. Calcium magnesium are normal. Wound cultures are resulted as E. coli susceptibilities noted. Infectious diseases following. She remains on cefepime, and vancomycin. Patient will be transferred to [facility] where they have interventional radiology available for drain placement, [facility],as discussed between PCP Dr. Park and general surgery, Dr. Rodriges. She will continue on her current medications and consult recommendations. The impression and plan of care has been dictated as directed. : I performed a history and examination of this patient, discussed the same with the dictator. I agree with the dictator's note ,documented as a scribe. Any additional findings or plans will be noted. Patient Condition at Discharge: Stable Plan - Discharge Summary Discharge Rx Participant: Yes New Discharge Prescriptions: No Action Pantoprazole [Protonix] 40 mg PO DAILY #30 tab Ondansetron [Zofran] 4 mg PO Q8HR PRN PRN Reason: Nausea And Vomiting Mirtazapine 7.5 mg PO HS Ipratropium-Albuterol Nebulize [Duoneb 0.5 mg-3 mg/3 ml Soln] 3 ml INHALATION RT-Q4H PRN PRN Reason: Shortness Of Breath/Wheezing dexAMETHasone [Decadron] 20 mg PO MO Dulaglutide [Trulicity] 0.75 mg SQ TH traMADol HCL 50 mg PO Q8H PRN PRN Reason: Pain Torsemide [Demadex] 20 mg PO BID Glycerin Adult Suppository 1 supp RECTAL DAILY PRN PRN Reason: Constipation Collagenase [Santyl Ointment] 1 applic TOPICAL Q2D@2100 Potassium Chloride ER [K-Dur 10] 10 meq PO BID Multivitamins, Thera [Multivitamin (formulary)] 1 tab PO DAILY Magnesium Hydroxide [Milk of Magnesia] 2,400 mg PO DIRECTED PRN PRN Reason: Constipation Levothyroxine Sodium [Synthroid] 112 mcg PO DAILY LORazepam [Ativan] 0.5 mg PO Q8H PRN PRN Reason: Anxiety Escitalopram [Lexapro] 10 mg PO DAILY atenoloL [Tenormin] 25 mg PO HS INSULIN LISPRO (HumaLOG) [HumaLOG] See Protocol SQ ACHS Acetaminophen Tab [Tylenol] 650 mg PO Q6HR PRN PRN Reason: Pain Discharge Medication List Dulaglutide [Trulicity] 0.75 mg SQ TH 11/09/24 [History] dexAMETHasone [Decadron] 20 mg PO MO 11/09/24 [History] Pantoprazole [Protonix] 40 mg PO DAILY #30 tab 12/16/24 [Rx] Acetaminophen Tab [Tylenol] 650 mg PO Q6HR PRN 01/29/25 [History] Collagenase [Santyl Ointment] 1 applic TOPICAL Q2D@2100 01/29/25 [History] Escitalopram [Lexapro] 10 mg PO DAILY 01/29/25 [History] Glycerin Adult Suppository 1 supp RECTAL DAILY PRN 01/29/25 [History] INSULIN LISPRO (HumaLOG) [HumaLOG] See Protocol SQ ACHS 01/29/25 [History] Ipratropium-Albuterol Nebulize [Duoneb 0.5 mg-3 mg/3 ml Soln] 3 ml INHALATION RT-Q4H PRN 01/29/25 [History] LORazepam [Ativan] 0.5 mg PO Q8H PRN 01/29/25 [History] Levothyroxine Sodium [Synthroid] 112 mcg PO DAILY 01/29/25 [History] Magnesium Hydroxide [Milk of Magnesia] 2,400 mg PO DIRECTED PRN 01/29/25 [History] Mirtazapine 7.5 mg PO HS 01/29/25 [History] Multivitamins, Thera [Multivitamin (formulary)] 1 tab PO DAILY 01/29/25 [History] Ondansetron [Zofran] 4 mg PO Q8HR PRN 01/29/25 [History] Potassium Chloride ER [K-Dur 10] 10 meq PO BID 01/29/25 [History] Torsemide [Demadex] 20 mg PO BID 01/29/25 [History] atenoloL [Tenormin] 25 mg PO HS 01/29/25 [History] traMADol HCL 50 mg PO Q8H PRN 01/29/25 [History] Follow up Appointment(s)/Referral(s): Jarett Gomez Jr, [Primary Care Provider] - 1-2 days Activity/Diet/Wound Care/Special Instructions: transfer to [facility] for Interventional Radiolog/ Drain placement not done at this site.
--- NOTE | 2025-02-02 11:06 | P.PN ---
Subjective Progress Note Date: 02/02/25 SURGICAL PROGRESS NOTE CHIEF COMPLAINT: Intra-abdominal abscess HISTORY OF PRESENT ILLNESS: Patient lying in bed comfortably. No new complaints. Per nursing staff patient had thick purulent drainage from the incision site. The nurse changed the midline incision packing this morning. There is no IR service available at this [facility] for drain placement for the intra-abdominal abscess. They are working on transferring patient to [facility] to be evaluated by IR service. Afebrile. WBC 9.4 potassium 4.1 PHYSICAL EXAM: VITAL SIGNS: Reviewed. GENERAL: no acute distress. ABDOMEN: Soft. Nondistended. Nontender. Midline incision with packing at distal incision with purulent drainage noted. Ostomy with stool present NEUROLOGIC: Awake and alert ASSESSMENT: 1. Intra-abdominal abscess 2. History of diverticulitis with perforation and abscess status post sigmoid colectomy with colostomy on 12/26/2024 3. Hypokalemia resolved PLAN: -Recommend transfer to [facility] to be evaluated by IR service for drain placement for intra-abdominal abscess. IR service is not available at this facility this week. -Antibiotics per ID service Physician Audit Practice Intern note has been reviewed by physician. Signing provider agrees with the documented findings, assessment, and plan of care. Objective - Vital Signs Vital signs: Vital Signs Temp 98.1 F 02/02/25 08:42 Pulse 72 02/02/25 08:42 Resp 18 02/02/25 08:42 BP 125/74 02/02/25 08:42 Pulse Ox 96 02/02/25 08:42 FiO2 Intake & Output 02/01/25 02/02/25 02/02/25 18:59 06:59 18:59 Intake Total 220 20 Output Total 775 Balance -555 20 Weight 63.5 kg 63.7 kg Intake: IV 20 20 Invasive Line 2 20 20 Oral 200 Output: Urine 775 Other: Voiding Method External Catheter External Catheter External Catheter - Labs CBC & Chem 7: 02/02/25 07:30 02/02/25 07:30 Labs: Abnormal Lab Results - Last 24 Hours (Table) 02/01/25 02/01/25 02/01/25 Range/Units 11:58 16:52 16:54 RBC (4.10-5.20) 10*6/uL Hgb (12.0-15.0) g/dL Hct (37.2-46.3) % MCHC (32.0-37.0) g/dL Immature Gran # (0.00-0.04) 10*3/uL Neutrophils # (1.80-7.70) 10*3/uL Eosinophils # (0.04-0.35) 10*3/uL BUN (7-17) mg/dL Glucose (74-99) mg/dL POC Glucose (mg/dL) 195 H 526 H* 270 H (70-110) mg/dL Vancomycin Trough ug/mL 02/01/25 02/02/25 02/02/25 Range/Units 19:43 00:19 06:24 RBC (4.10-5.20) 10*6/uL Hgb (12.0-15.0) g/dL Hct (37.2-46.3) % MCHC (32.0-37.0) g/dL Immature Gran # (0.00-0.04) 10*3/uL Neutrophils # (1.80-7.70) 10*3/uL Eosinophils # (0.04-0.35) 10*3/uL BUN (7-17) mg/dL Glucose (74-99) mg/dL POC Glucose (mg/dL) 313 H 232 H (70-110) mg/dL Vancomycin Trough 34.8 H* ug/mL 02/02/25 02/02/25 Range/Units 07:30 07:30 RBC 3.02 L (4.10-5.20) 10*6/uL Hgb 8.7 L (12.0-15.0) g/dL Hct 27.8 L (37.2-46.3) % MCHC 31.3 L (32.0-37.0) g/dL Immature Gran # 0.18 H (0.00-0.04) 10*3/uL Neutrophils # 7.89 H (1.80-7.70) 10*3/uL Eosinophils # 0.00 L (0.04-0.35) 10*3/uL BUN 30 H (7-17) mg/dL Glucose 200 H (74-99) mg/dL POC Glucose (mg/dL) (70-110) mg/dL Vancomycin Trough ug/mL Microbiology - Last 24 Hours (Table) 01/29/25 18:57 Blood Culture - Preliminary Blood
[2025-02-02 12:04] LABS: Glucose,Whole Blood 236 mg/dL (70-110)
--- NOTE | 2025-02-02 14:20 | P.PN ---
Subjective Progress Note Date: 02/01/25 Principal diagnosis: Reason for follow-up is intra-abdominal abscess Patient is a 79-year-old female with a past medical history significant for coronary disease diabetes mellitus hypertension hyperlipidemia thyroid disorder in this patient who recently admitted to the hospital with perforated diverticulitis status post sigmoid colectomy and colostomy, now admitted to the hospital with intra-abdominal abscess. On today's evaluation that is 02/01/2025, patient has been afebrile, patient is breathing comfortably and is currently on room air, patient denies having any chest pain and cough, patient denies nausea vomiting or abdominal pain. Patient white count 7.33 as of yesterday no CBC done today creatinine 0.75 Objective - Vital Signs Vital signs: Vital Signs Temp 98.3 F 02/01/25 12:00 Pulse 71 02/01/25 12:00 Resp 18 02/01/25 12:00 BP 121/63 02/01/25 12:00 Pulse Ox 96 02/01/25 12:00 FiO2 Intake & Output 01/31/25 02/01/25 02/01/25 18:59 06:59 18:59 Intake Total 120 10 10 Output Total 300 850 325 Balance -180 -840 -315 Weight 63.5 kg Intake: IV 20 10 10 Invasive Line 2 20 10 10 Oral 100 Output: Urine 300 850 325 Other: Voiding Method External Catheter External Catheter External Catheter - Exam GENERAL DESCRIPTION: An elderly female lying in bed in no distress RESPIRATORY SYSTEM: Unlabored breathing , decreased breath sounds at bases HEART: S1 S2 regular rate and rhythm , ABDOMEN: Soft , no tenderness EXTREMITIES: No edema feet - Labs CBC & Chem 7: 02/02/25 07:30 02/02/25 07:30 Labs: Abnormal Lab Results - Last 24 Hours (Table) 01/31/25 01/31/25 02/01/25 Range/Units 16:57 20:04 05:42 Sodium 136 L (137-145) mmol/L Potassium 2.9 L (3.5-5.1) mmol/L BUN 22 H (7-17) mg/dL Glucose 160 H (74-99) mg/dL POC Glucose (mg/dL) 176 H 186 H (70-110) mg/dL 02/01/25 02/01/25 Range/Units 06:03 11:58 Sodium (137-145) mmol/L Potassium (3.5-5.1) mmol/L BUN (7-17) mg/dL Glucose (74-99) mg/dL POC Glucose (mg/dL) 181 H 195 H (70-110) mg/dL Microbiology - Last 24 Hours (Table) 01/29/25 18:57 Blood Culture - Preliminary Blood 01/29/25 18:57 Gram Stain - Preliminary Abdomen Wound Culture - Final Escherichia coli Assessment and Plan (1) Abdominal abscess Current Visit: Yes Status: Acute Code(s): LKQ2556 - SNOMED Code(s): 55669481 Plan: 1patient presented to hospital with abdominal incision dehiscence in this patient with evidence of intra-abdominal abscess she recently did have history of perforated diverticulitis with an abscess requiring colostomy and drainage of the abscess and she did have E. coli bacteremia on her last admission 2blood cultures currently pending local culture growing gram-negative bacilli 3patient is currently waiting for IR drainage of this abscess we will continue to treat with cefepime vancomycin and Flagyl pending finalization of the cultures Dictation was produced using [employer] dictation software. please excuse any grammatical, word or spelling errors. Time with Patient: Less than 30
--- NOTE | 2025-02-02 14:21 | P.PN ---
Subjective Progress Note Date: 02/02/25 Principal diagnosis: Reason for follow-up is intra-abdominal abscess Patient is a 79-year-old female with a past medical history significant for coronary disease diabetes mellitus hypertension hyperlipidemia thyroid disorder in this patient who recently admitted to the hospital with perforated diverticulitis status post sigmoid colectomy and colostomy, now admitted to the hospital with intra-abdominal abscess. On today's evaluation that is 02/02/2025, Patient is afebrile this morning patient denies having any chest pain shortness of breath or cough, the patient i s currently on room air, patient denies any abdominal pain, no nausea no vomiting. Patient white count is 9.40, creatinine 0.90 abdominal culture with an E. coli Objective - Vital Signs Vital signs: Vital Signs Temp 98.1 F 02/02/25 08:42 Pulse 72 02/02/25 08:42 Resp 18 02/02/25 08:42 BP 125/74 02/02/25 08:42 Pulse Ox 96 02/02/25 08:42 FiO2 Intake & Output 02/01/25 02/02/25 02/02/25 18:59 06:59 18:59 Intake Total 220 20 Output Total 775 Balance -555 20 Weight 63.5 kg 63.7 kg Intake: IV 20 20 Invasive Line 2 20 20 Oral 200 Output: Urine 775 Other: Voiding Method External Catheter External Catheter External Catheter - Labs CBC & Chem 7: 02/02/25 07:30 02/02/25 07:30 Labs: Abnormal Lab Results - Last 24 Hours (Table) 02/01/25 02/01/25 02/01/25 Range/Units 11:58 16:52 16:54 RBC (4.10-5.20) 10*6/uL Hgb (12.0-15.0) g/dL Hct (37.2-46.3) % MCHC (32.0-37.0) g/dL Immature Gran # (0.00-0.04) 10*3/uL Neutrophils # (1.80-7.70) 10*3/uL Eosinophils # (0.04-0.35) 10*3/uL BUN (7-17) mg/dL Glucose (74-99) mg/dL POC Glucose (mg/dL) 195 H 526 H* 270 H (70-110) mg/dL Vancomycin Trough ug/mL 02/01/25 02/02/25 02/02/25 Range/Units 19:43 00:19 06:24 RBC (4.10-5.20) 10*6/uL Hgb (12.0-15.0) g/dL Hct (37.2-46.3) % MCHC (32.0-37.0) g/dL Immature Gran # (0.00-0.04) 10*3/uL Neutrophils # (1.80-7.70) 10*3/uL Eosinophils # (0.04-0.35) 10*3/uL BUN (7-17) mg/dL Glucose (74-99) mg/dL POC Glucose (mg/dL) 313 H 232 H (70-110) mg/dL Vancomycin Trough 34.8 H* ug/mL 02/02/25 02/02/25 Range/Units 07:30 07:30 RBC 3.02 L (4.10-5.20) 10*6/uL Hgb 8.7 L (12.0-15.0) g/dL Hct 27.8 L (37.2-46.3) % MCHC 31.3 L (32.0-37.0) g/dL Immature Gran # 0.18 H (0.00-0.04) 10*3/uL Neutrophils # 7.89 H (1.80-7.70) 10*3/uL Eosinophils # 0.00 L (0.04-0.35) 10*3/uL BUN 30 H (7-17) mg/dL Glucose 200 H (74-99) mg/dL POC Glucose (mg/dL) (70-110) mg/dL Vancomycin Trough ug/mL Microbiology - Last 24 Hours (Table) 01/29/25 18:57 Blood Culture - Preliminary Blood Assessment and Plan (1) Abdominal abscess Current Visit: Yes Status: Acute Code(s): UDT5149 - SNOMED Code(s): 49116232 Plan: 1patient presented to hospital with abdominal incision dehiscence in this patient with evidence of intra-abdominal abscess she recently did have history of perforated diverticulitis with an abscess requiring colostomy and drainage of the abscess and she did have E. coli bacteremia on her last admission 2blood cultures currently pending local culture grew E. coli that is a sensitive pathogen 3 IR service not available to drain this abscess and the patient is being transferred to [facility] with the culture showing only E. coli no MRSA will discontinue vancomycin continue the patient on cefepime and Flagyl son at the bedside question answered Dictation was produced using [employer] dictation software. please excuse any grammatical, word or spelling errors. Time with Patient: Less than 30
[2025-02-02 16:18] LABS: Glucose,Whole Blood 236 mg/dL (70-110)
[2025-02-02 20:15] LABS: Glucose,Whole Blood 224 mg/dL (70-110)
[2025-02-02] MEDS ORDERED: VANCOMYCIN TROUGH DUE 1 EACH MISC MISCELLANE ONE (23:59)
[2025-02-03 00:12] LABS: African American GFR (CKD) 74 (>60 ml/min/1.73 sqM); Non-African American GFR(CKD) 64 (>60 ml/min/1.73 sqM)
[2025-02-03 06:28] LABS: Glucose,Whole Blood 149 mg/dL (70-110)
[2025-02-03 10:32] VITALS: BP 109/41; PULSE 64; RESP 18; TEMP 97.4
--- NOTE | 2025-02-03 10:45 | P.PN ---
Subjective Progress Note Date: 02/03/25 SURGICAL PROGRESS NOTE CHIEF COMPLAINT: Intra-abdominal abscess HISTORY OF PRESENT ILLNESS: Patient is crying. But denies abdominal pain. Denies any nausea or vomiting. Awaiting transfer to [facility] for IR service evaluation for drain placement for her intra-abdominal abscess. Possible transfer today. Afebrile. PHYSICAL EXAM: VITAL SIGNS: Reviewed. GENERAL: no acute distress. ABDOMEN: Soft. Nondistended. Nontender. Midline incision with wound at the distal aspect. Packing removed. Granulation tissue is noted in the wound with serous drainage. NEUROLOGIC: Awake and alert ASSESSMENT: 1. Intra-abdominal abscess 2. History of diverticulitis with perforation and abscess status post sigmoid colectomy with colostomy on 12/26/2024 3. Hypokalemia resolved PLAN: -Recommend transfer to [facility] to be evaluated by IR service for drain placement for intra-abdominal abscess. IR service is not available at this facility this week. -Antibiotics per ID service -Pain management with Tylenol and Ultram Physician S[employer]ter note has been reviewed by physician. Signing provider agrees with the documented findings, assessment, and plan of care. Objective - Vital Signs Vital signs: Vital Signs Temp 97.4 F L 02/03/25 08:45 Pulse 64 02/03/25 08:45 Resp 18 02/03/25 08:45 BP 109/41 02/03/25 08:45 Pulse Ox 96 02/03/25 09:31 FiO2 Intake & Output 02/02/25 02/03/25 02/03/25 18:59 06:59 18:59 Intake Total 300 360 200 Output Total 350 600 500 Balance -50 -240 -300 Intake: Intake, IV Titration 300 Amount Cefepime 2 gm In Dextrose 100 5% in Water 100 ml @ 25 mls/hr IVPB Q12H [facility] Rx#: [id number] metroNIDAZOLE-NS PMX 500 200 mg In Saline 1 100ml.bag @ 100 mls/hr IVPB 0300, 1100,1900 [facility]BD[facility] Rx#: [id number] Oral 0 360 200 Output: Urine 350 600 500 Other: Voiding Method External Catheter External Catheter External Catheter # Voids 2 - Labs CBC & Chem 7: 02/02/25 07:30 02/02/25 23:35 Labs: Abnormal Lab Results - Last 24 Hours (Table) 02/02/25 02/02/25 02/02/25 Range/Units 12:00 16:16 20:14 POC Glucose (mg/dL) 236 H 236 H 224 H (70-110) mg/dL 02/03/25 Range/Units 06:27 POC Glucose (mg/dL) 149 H (70-110) mg/dL
[2025-02-03] MEDS: ACETAMINOPHEN TAB 325 MG TAB PO PRN (10:55)
== END 2025-02-03 11:39 | disposition short-term general hospital (02) | DRG 862 ==
LOC: EC 18:07 → 3SCARD 23:15
PROVIDERS: ADMIT Family Medicine; ATTEND Family Medicine
DX: T81.43XA Infection following a procedure, organ and space surgical site, initial encounter (principal); G92.8 Other toxic encephalopathy; K65.1 Peritoneal abscess; C90.00 Multiple myeloma not having achieved remission; E44.1 Mild protein-calorie malnutrition; D84.9 Immunodeficiency, unspecified; E11.59 Type 2 diabetes mellitus with other circulatory complications; I10 Essential (primary) hypertension; T81.31XA Disruption of external operation (surgical) wound, not elsewhere classified, initial encounter; L98.492 Non-pressure chronic ulcer of skin of other sites with fat layer exposed; Z79.4 Long term (current) use of insulin; Z93.3 Colostomy status; E78.5 Hyperlipidemia, unspecified; E86.0 Dehydration; E87.6 Hypokalemia; I25.10 Atherosclerotic heart disease of native coronary artery without angina pectoris; Z79.890 Hormone replacement therapy; Z79.899 Other long term (current) drug therapy; Z82.49 Family history of ischemic heart disease and other diseases of the circulatory system; Z90.49 Acquired absence of other specified parts of digestive tract; Z95.1 Presence of aortocoronary bypass graft; Z96.652 Presence of left artificial knee joint; Y84.8 Other medical procedures as the cause of abnormal reaction of the patient, or of later complication, without mention of misadventure at the time of the procedure; Z68.24 Body mass index [BMI] 24.0-24.9, adult
CPT/HCPCS: 36415; 70450; 71045; 74177; 80048; 80053; 80202; 81001; 82565; 83735; 83880; 84132; 84484; 85025; 85610; 85730; 87040; 87070; 87077; 87186; 87205; 93005; 95816